=== PATIENT | male | born 1955 | race American Indian/Alaskan Native ===

== ENCOUNTER 2021-04-21 15:15 | Inpatient (IN) | payer MEDICARE ==
--- NOTE | 2021-04-21 16:06 | Emergency Department Report ---
ED General Adult HPI - General Chief complaint: Dental/Oral Stated complaint: CAN'T SWALLOW Time Seen by Provider: 04/21/21 16:02 Source: EMS Mode of arrival: Stretcher Limitations: Altered Mental Status - History of Present Illness Initial comments: 66-year-old -[place] male brought to the emergency room by EMS. Patient was dropped off in the room, unable to obtain history. Patient still unable to provide history. Apparently patient [facility]. MD Complaint: Altered mental status -: unknown - Related Data Allergies Allergy/AdvReac Type Severity Reaction Status Date / Time No Known Allergies Allergy Unverified 04/21/21 16:27 ED Review of Systems ROS: Stated complaint: CAN'T SWALLOW Other details as noted in HPI Comment: Unobtainable due to pts medical conditions (Patient unable to provide history) ED Physical Exam - General Limitations: Altered Mental Status General appearance: alert, in no apparent distress - Head Head exam: Present: atraumatic, normocephalic - Eye Eye exam: Present: normal appearance, PERRL, EOMI - ENT ENT exam: Present: mucous membranes dry, other (Dry mucous membrane). Absent: normal orophraynx - Neck Neck exam: Present: normal inspection - Respiratory Respiratory exam: Present: normal lung sounds bilaterally. Absent: respiratory distress, wheezes, rales - Cardiovascular Cardiovascular Exam: Present: regular rate, normal rhythm, normal heart sounds - GI/Abdominal GI/Abdominal exam: Present: soft. Absent: distended, tenderness, guarding, rebound - Extremities Exam Extremities exam: Present: other (Contracted lower extremity) - Neurological Exam Neurological exam: Present: alert, altered ED Course Vital Signs 04/21/21 15:16 Temperature 98.4 F Pulse Rate 104 H Respiratory 16 Rate Blood Pressure 105/74 [Right] O2 Sat by Pulse 97 Oximetry - Reevaluation(s) Reevaluation #1: 04/21/21 16:05 Patient has been seen and evaluated. Vital signs has been reviewed. Patient in the emergency room altered. Patient unable to provide history. Basting Marker unable to provide adequate history. Reevaluation #2: 04/21/21 17:56 I have reviewed the results of the chest x-ray, is concerning for bilateral pneumonia; I will initiate a septic work-up at this time Reevaluation #3: 04/21/21 19:01 I have discussed the case with the hospitalist who will admit the patient to the hospital ED Medical Decision Making - Lab Data Result diagrams: 04/21/21 16:08 04/21/21 16:08 - Radiology Data Radiology results: report reviewed Bilateral pneumonia - Medical Decision Making DDx: Altered mental status, electrolyte abnormality, pneumonia, UTI, anemia Critical care attestation.: If time is entered above; I have spent that time in minutes in the direct care of this critically ill patient, excluding procedure time. ED Disposition Clinical Impression: Bilateral pneumonia Qualifiers: Pneumonia type: due to unspecified organism Lung location: lower lobe of lung Qualified Code(s): J18.9 - Pneumonia, unspecified organism Altered mental status Qualifiers: Altered mental status type: unspecified Qualified Code(s): R41.82 - Altered mental status, unspecified Disposition: 09 ADMITTED INPATIENT Is pt being admited?: Yes Does the pt Need Aspirin: No Condition: Stable Instructions: Bacterial Pneumonia (ED) Referrals: PRIMARY CARE, [Primary Care Provider] - 3-5 Days
[2021-04-21 17:05] LABS: Basophils % (Auto) 0.1 % (0.0-1.8); Hematocrit 41.7 % (35.5-45.6); Hemoglobin 13.3 gm/dl (11.8-15.2); Lymphocytes # (Auto) 0.9 K/mm3 (1.2-5.4); Lymphocytes % (Auto) 8.5 % (13.4-35.0); Mean Corpuscular HGB Conc 32 % (32-34); Mean Corpuscular Volume 96 fl (84-94); Monocytes # (Auto) 1.7 K/mm3 (0.0-0.8); Monocytes % (Auto) 15.8 % (0.0-7.3); Platelet Count 195 K/mm3 (140-440); Red Blood Count 4.36 M/mm3 (3.65-5.03); Red Cell Distribution Width 15.2 % (13.2-15.2)
[2021-04-21 17:17] LABS: Alanine Aminotransferase 38 units/L (7-56); Blood Urea Nitrogen 13 mg/dL (9-20); Calcium 8.3 mg/dL (8.4-10.2); Hemolysis Index 47
[2021-04-21 17:18] LABS: BUN/Creatinine Ratio 22
--- NOTE | 2021-04-21 17:42 | XRay Report ---
CHEST 1 VIEW 04/21/2021 5:21 PM INDICATION / CLINICAL INFORMATION: Altered mental status. COMPARISON: None. FINDINGS: SUPPORT DEVICES: None. HEART / MEDIASTINUM: No significant abnormality. LUNGS / PLEURA: Bibasilar pneumonia left greater than right. No pneumothorax. ADDITIONAL FINDINGS: No significant additional findings. IMPRESSION: Bibasilar pneumonia. Signer Name: Silas Arambula MD Signed: 04/21/2021 5:38 PM Workstation Name: [id number]
[2021-04-21] MEDS ORDERED: AZITHROMYCIN/NS 500 MG/250 ML 500 MG/250 ML BAG IV ONE (17:54)
[2021-04-21 20:35] LABS: Bilirubin,Urine NEG (Negative); Blood,Urine MOD (Negative); Color,Urine Amber (Yellow); Mucus,Urine FEW /HPF; RBC,Urine < 1.0 /HPF (0.0-6.0); WBC,Urine < 1.0 /HPF (0.0-6.0)
--- NOTE | 2021-04-21 21:34 | History and Physical Report ---
History of Present Illness Date of examination: 04/21/21 Date of admission: 04/21/21 19:00 Chief complaint: Chest pain since yesterday. History of present illness: 66-year-old -[place] male brought in by family for altered sensorium. Patient was apparently admitted to personal shelter recently. Patient is a very poor historian. Could not get much history. Low-grade fever present. Past History Past Medical History: No medical history Past Surgical History: No surgical history Social history: Lives alone, full code Family history: hypertension Medications and Allergies Allergies Allergy/AdvReac Type Severity Reaction Status Date / Time No Known Allergies Allergy Unverified 04/21/21 16:27 Review of Systems All systems: negative Exam - Constitutional Vitals: Temp Pulse Resp BP Pulse Ox 98.4 F 104 H 16 105/74 97 04/21/21 15:16 04/21/21 15:16 04/21/21 15:16 04/21/21 15:16 04/21/21 15:16 General appearance: Present: no acute distress, well-nourished - EENT Eyes: Present: PERRL ENT: hearing intact, clear oral mucosa - Neck Neck: Present: supple, normal ROM - Respiratory Respiratory effort: normal Respiratory: bilateral: CTA - Cardiovascular Heart rate: 78 Rhythm: regular Heart Sounds: Present: S1 & S2. Absent: rub, click - Extremities Extremities: pulses symmetrical, No edema Peripheral Pulses: within normal limits - Abdominal General gastrointestinal: Present: soft, non-tender, non-distended, normal bowel sounds Male genitourinary: Present: normal - Integumentary Integumentary: Present: clear, warm, dry - Musculoskeletal Musculoskeletal: gait normal, strength equal bilaterally - Psychiatric Psychiatric: intact judgment & insight, other (Altered sensorium) - Neurologic Neurologic: CNII-XII intact, moves all extremities - Allied Health Allied health notes reviewed: nursing, case management HEART Score - HEART Score History: Moderately suspicious Age: 45-65 Risk factors: 1-2 risk factors - Critical Actions Critical Actions: 0-3 pts:0.9-1.7%risk of adverse cardiac event.Candidate for discharge Results - Labs CBC & Chem 7: 04/21/21 16:08 04/21/21 16:08 Labs: Laboratory Last Values WBC 10.5 K/mm3 (4.5-11.0) 04/21/21 16:08 RBC 4.36 M/mm3 (3.65-5.03) 04/21/21 16:08 Hgb 13.3 gm/dl (11.8-15.2) 04/21/21 16:08 Hct 41.7 % (35.5-45.6) 04/21/21 16:08 MCV 96 fl (84-94) H 04/21/21 16:08 MCH 31 pg (28-32) 04/21/21 16:08 MCHC 32 % (32-34) 04/21/21 16:08 RDW 15.2 % (13.2-15.2) 04/21/21 16:08 Plt Count 195 K/mm3 (140-440) 04/21/21 16:08 Lymph % (Auto) 8.5 % (13.4-35.0) L 04/21/21 16:08 Bartholomew % (Auto) 15.8 % (0.0-7.3) H 04/21/21 16:08 Eos % (Auto) 0.0 % (0.0-4.3) 04/21/21 16:08 Baso % (Auto) 0.1 % (0.0-1.8) 04/21/21 16:08 Lymph # (Auto) 0.9 K/mm3 (1.2-5.4) L 04/21/21 16:08 Bartholomew # (Auto) 1.7 K/mm3 (0.0-0.8) H 04/21/21 16:08 Eos # (Auto) 0.0 K/mm3 (0.0-0.4) 04/21/21 16:08 Baso # (Auto) 0.0 K/mm3 (0.0-0.1) 04/21/21 16:08 Seg Neutrophils % 75.6 % (40.0-70.0) H 04/21/21 16:08 Seg Neutrophils # 8.0 K/mm3 (1.8-7.7) H 04/21/21 16:08 APTT 32.0 Sec. (24.2-36.6) 04/21/21 18:02 Sodium 141 mmol/L (137-145) 04/21/21 16:08 Potassium 3.7 mmol/L (3.6-5.0) 04/21/21 16:08 Chloride 101.8 mmol/L (98-107) 04/21/21 16:08 Carbon Dioxide 27 mmol/L (22-30) 04/21/21 16:08 Anion Gap 16 mmol/L 04/21/21 16:08 BUN 13 mg/dL (9-20) 04/21/21 16:08 Creatinine 0.6 mg/dL (0.8-1.3) L 04/21/21 16:08 Estimated GFR > 60 ml/min 04/21/21 16:08 BUN/Creatinine Ratio 22 % 04/21/21 16:08 Glucose 107 mg/dL (75-100) H 04/21/21 16:08 Lactic Acid 1.20 mmol/L (0.7-2.0) 04/21/21 20:26 Calcium 8.3 mg/dL (8.4-10.2) L 04/21/21 16:08 Magnesium 2.20 mg/dL (1.7-2.3) 04/21/21 16:08 Total Bilirubin 0.40 mg/dL (0.1-1.2) 04/21/21 16:08 AST 136 units/L (5-40) H 04/21/21 16:08 ALT 38 units/L (7-56) 04/21/21 16:08 Alkaline Phosphatase 66 units/L (35-129) 04/21/21 16:08 Total Protein 6.2 g/dL (6.3-8.2) L 04/21/21 16:08 Albumin 3.0 g/dL (3.9-5) L 04/21/21 16:08 Albumin/Globulin Ratio 0.9 % 04/21/21 16:08 Lipase 7 units/L (13-60) L 04/21/21 16:08 Urine Color Leticia (Yellow) 04/21/21 Unknown Urine Turbidity Clear (Clear) 04/21/21 Unknown Urine pH 5.0 (5.0-7.0) 04/21/21 Unknown Ur Specific [place] 1.027 (1.003-1.030) 04/21/21 Unknown Urine Protein 100 mg/dl mg/dL (Negative) 04/21/21 Unknown Urine Glucose (UA) Neg mg/dL (Negative) 04/21/21 Unknown Urine Ketones 20 mg/dL (Negative) 04/21/21 Unknown Urine Blood Mod (Negative) 04/21/21 Unknown Urine Nitrite Neg (Negative) 04/21/21 Unknown Urine Bilirubin Neg (Negative) 04/21/21 Unknown Urine Urobilinogen 4.0 mg/dL (<2.0) 04/21/21 Unknown Ur Leukocyte Esterase Neg (Negative) 04/21/21 Unknown Urine WBC (Auto) < 1.0 /HPF (0.0-6.0) 04/21/21 Unknown Urine RBC (Auto) < 1.0 /HPF (0.0-6.0) 04/21/21 Unknown Urine Mucus Few /HPF 04/21/21 Unknown Short CBC 04/21/21 Range/Units 16:08 WBC 10.5 (4.5-11.0) K/mm3 Hgb 13.3 (11.8-15.2) gm/dl Hct 41.7 (35.5-45.6) % Plt Count 195 (140-440) K/mm3 BMP 04/21/21 16:08 Sodium 141 Potassium 3.7 Chloride 101.8 Carbon Dioxide 27 BUN 13 Creatinine 0.6 L Glucose 107 H Calcium 8.3 L Liver Function 04/21/21 Range/Units 16:08 Total Bilirubin 0.40 (0.1-1.2) mg/dL AST 136 H (5-40) units/L ALT 38 (7-56) units/L Alkaline Phosphatase 66 (35-129) units/L Albumin 3.0 L (3.9-5) g/dL Urine 04/21/21 Range/Units Unknown Urine Color Leticia (Yellow) Urine pH 5.0 (5.0-7.0) Ur Specific [place] 1.027 (1.003-1.030) Urine Protein 100 mg/dl (Negative) mg/dL Urine Glucose (UA) Neg (Negative) mg/dL - Imaging and Cardiology EKG: report reviewed Chest x-ray: report reviewed Imaging and Cardiology: Chest x-ray Bilateral bibasilar pneumonia Assessment and Plan Advance Directives: Yes (Full code) VTE prophylaxis?: Chemical Plan of care discussed with patient/family: Yes - Patient Problems (1) Acute encephalopathy Current Visit: Yes Status: Acute Plan to address problem: Etiology unclear IV fluids for now (2) Bilateral pneumonia Current Visit: Yes Status: Acute Qualifiers: Pneumonia type: due to unspecified organism Lung location: lower lobe of lung Qualified Code(s): J18.9 - Pneumonia, unspecified organism Plan to address problem: Treat as community-acquired pneumonia for now IV Zithromax and IV Rocephin (3) Person under investigation for COVID-19 Current Visit: Yes Status: Acute Plan to address problem: Coronavirus PCR in a.m. IV Decadron 8 mg daily (4) DVT prophylaxis Current Visit: Yes Status: Acute Plan to address problem: On Lovenox and GI prophylaxis
[2021-04-21] MEDS ORDERED: ACETAMINOPHEN 325 MG TAB PO PRN (21:54)
[2021-04-21] MEDS ORDERED: SODIUM CHLORIDE 0.9% 500 ML 500 ML IV ONE (22:30)
[2021-04-21] MEDS ORDERED: ONDANSETRON 4 MG/2 ML INJ IV PRN (22:31)
[2021-04-21] MEDS ORDERED: METOCLOPRAMIDE 10 MG/2 ML INJ IV PRN (22:31)
[2021-04-21] MEDS ORDERED: SODIUM CHLORIDE 0.9% 1000 ML 1,000 ML IV SCH (22:45)
[2021-04-21] MEDS: dexAMETHasone 4 MG/ML VIAL IV SCH (23:18)
[2021-04-22 02:35] LABS: C-Reactive Protein 9.2 mg/dL (0.00-1.30)
[2021-04-22 07:11] LABS: Hematocrit 40.2 % (35.5-45.6); Hemoglobin 12.9 gm/dl (11.8-15.2); Mean Corpuscular HGB Conc 32 % (32-34); Mean Corpuscular Volume 95 fl (84-94); Platelet Count 173 K/mm3 (140-440); Red Blood Count 4.23 M/mm3 (3.65-5.03); Red Cell Distribution Width 15.2 % (13.2-15.2)
[2021-04-22 07:37] LABS: Alanine Aminotransferase 34 units/L (7-56); Blood Urea Nitrogen 13 mg/dL (9-20); Hemolysis Index 3
[2021-04-22 07:51] LABS: BUN/Creatinine Ratio 33
[2021-04-22] MEDS ORDERED: CALCIUM GLUCONATE 2,000 MG in SODIUM CHLORIDE 0.9% 100 ML IV ONE (09:00)
[2021-04-22] MEDS: ENOXAPARIN 40 MG/0.4 ML INJ SUB-Q SCH (09:31)
[2021-04-22] MEDS: dexAMETHasone 4 MG/ML VIAL IV SCH (09:31)
[2021-04-22] MEDS: FAMOTIDINE 20 MG TAB PO SCH ×2 (09:32→22:35)
[2021-04-22] MEDS ORDERED: cefTRIAXone/NS 2 GM/100 ML 2 GM/100 ML BAG IV SCH (10:00)
[2021-04-22] MEDS ORDERED: AZITHROMYCIN 250 MG TAB PO SCH (10:00)
[2021-04-22] MEDS ORDERED: AZITHROMYCIN/NS 500 MG/250 ML 500 MG/250 ML BAG IV SCH (10:00)
[2021-04-22 11:04] LABS: Total Cells Counted 100
[2021-04-22 11:05] LABS: Band Neutrophils # (Manual) 0.4 K/mm3; Platelet Estimate Consistent w Auto; RBC Morphology Normal
--- NOTE | 2021-04-22 11:06 | Electrocardiograph Report ---
[facility] Test Date: 2021-04-21 Test Time: 19:36:11 Pat Name: CHERRY LEDEZMA Department: Room: A364 1 Gender: M Sand Screener: ERIK : 1955 Requested By: KARELY ASHFORD Order Number: [id number] Reading MD: Wellington Kumari Measurements Intervals [place] Rate: 102 P: 67 OK: 137 QRS: 27 QRSD: 103 T: 81 QT: 363 QTc: 473 Interpretive Statements Sinus tachycardia Low voltage, extremity leads motion artifact No previous ECG available for comparison Electronically Signed On 04-22-2021 11:05:27 EST by Wellington Kumari
--- NOTE | 2021-04-22 13:43 | Progress Note ---
Assessment and Plan Assessment and plan: Patient is a 66-year-old male who resides in a personal ch[facility] who presented with presumed acute metabolic encephalopathy and found to have bilateral pneumonia. #Acute metabolic encephalopathy -Etiology currently unclear -Patient is afebrile, normal WBC, negative UA -Possibly secondary to bilateral pneumonia (etiology unknown) -We will continue to monitor. Consider MRI if encephalopathy does not improve. #Bilateral pneumonia #Possible community-acquired pneumonia #Possible COVID-19 pneumonia #Person under investigation for COVID-19 -Continue azithromycin 500 mg daily and Rocephin 2 g daily and IV Decadron 8 mg daily -Pending coronavirus PCR. If PCR negative, steroids can be discontinued. -Continue contact and droplet precautions #Advanced care planning -Disease education conducted, care plan discussed, diagnoses discussed, prognosis discussed, and patient acknowledges understanding with care plan -Time: +30 min Disposition Plan: Continue medical management Total Time Spent with Patient (Minutes): 45 minutes History Interval history: No acute events overnight. Hospitalist Physical - Constitutional Vitals: Temp Pulse Resp BP Pulse Ox 99.4 F 100 H 20 106/81 98 04/21/21 23:20 04/21/21 23:20 04/22/21 11:42 04/21/21 23:20 04/22/21 11:42 General appearance: Present: no acute distress, well-nourished - EENT Eyes: Present: PERRL, EOM intact ENT: hearing intact, clear oral mucosa - Neck Neck: Present: supple, normal ROM - Respiratory Respiratory effort: normal Respiratory: bilateral: diminished (On 4 L nasal cannula) - Cardiovascular Rhythm: regular Heart Sounds: Present: S1 & S2 - Extremities Extremities: no ischemia, pulses intact, pulses symmetrical, No edema, normal temperature, normal color Peripheral Pulses: within normal limits - Abdominal General gastrointestinal: soft, non-tender, non-distended, normal bowel sounds - Integumentary Integumentary: Present: clear, warm, dry - Psychiatric Psychiatric: other (Limited insight; uncooperative with redirection) - Neurologic Neurologic: CNII-XII intact, moves all extremities, other - Allied Health Allied health notes reviewed: nursing HEART Score - HEART Score Age: 45-65 Risk factors: 1-2 risk factors - Critical Actions Critical Actions: 0-3 pts:0.9-1.7%risk of adverse cardiac event.Candidate for discharge Results - Labs CBC & Chem 7: 04/22/21 06:51 04/22/21 06:51 Labs: Laboratory Last Values WBC 7.0 K/mm3 (4.5-11.0) 04/22/21 06:51 RBC 4.23 M/mm3 (3.65-5.03) 04/22/21 06:51 Hgb 12.9 gm/dl (11.8-15.2) 04/22/21 06:51 Hct 40.2 % (35.5-45.6) 04/22/21 06:51 MCV 95 fl (84-94) H 04/22/21 06:51 MCH 30 pg (28-32) 04/22/21 06:51 MCHC 32 % (32-34) 04/22/21 06:51 RDW 15.2 % (13.2-15.2) 04/22/21 06:51 Plt Count 173 K/mm3 (140-440) 04/22/21 06:51 Lymph % (Auto) 8.5 % (13.4-35.0) L 04/21/21 16:08 [place] % (Auto) 15.8 % (0.0-7.3) H 04/21/21 16:08 Eos % (Auto) 0.0 % (0.0-4.3) 04/21/21 16:08 Baso % (Auto) 0.1 % (0.0-1.8) 04/21/21 16:08 Lymph # (Auto) 0.9 K/mm3 (1.2-5.4) L 04/21/21 16:08 [place] # (Auto) 1.7 K/mm3 (0.0-0.8) H 04/21/21 16:08 Eos # (Auto) 0.0 K/mm3 (0.0-0.4) 04/21/21 16:08 Baso # (Auto) 0.0 K/mm3 (0.0-0.1) 04/21/21 16:08 Add Manual Diff Complete 04/22/21 06:51 Total Counted 100 04/22/21 06:51 Seg Neutrophils % Guard Rail Installer 04/22/21 06:51 Seg Neuts % (Manual) 91.0 % (40.0-70.0) H 04/22/21 06:51 Band Neutrophils % 5.0 % 04/22/21 06:51 Lymphocytes % (Manual) 1.0 % (13.4-35.0) L 04/22/21 06:51 Monocytes % (Manual) 3.0 % (0.0-7.3) 04/22/21 06:51 Nucleated RBC % Not Reportable 04/22/21 06:51 Seg Neutrophils # 8.0 K/mm3 (1.8-7.7) H 04/21/21 16:08 Seg Neutrophils # Man 6.4 K/mm3 (1.8-7.7) 04/22/21 06:51 Band Neutrophils # 0.4 K/mm3 04/22/21 06:51 Lymphocytes # (Manual) 0.1 K/mm3 (1.2-5.4) L 04/22/21 06:51 Abs React Lymphs (Man) 0.0 K/mm3 04/22/21 06:51 Monocytes # (Manual) 0.2 K/mm3 (0.0-0.8) 04/22/21 06:51 Eosinophils # (Manual) 0.0 K/mm3 (0.0-0.4) 04/22/21 06:51 Basophils # (Manual) 0.0 K/mm3 (0.0-0.1) 04/22/21 06:51 Metamyelocytes # 0.0 K/mm3 04/22/21 06:51 Myelocytes # 0.0 K/mm3 04/22/21 06:51 Promyelocytes # 0.0 K/mm3 04/22/21 06:51 Blast Cells # 0.0 K/mm3 04/22/21 06:51 WBC Morphology Not Reportable 04/22/21 06:51 WBC Morphology TNR 04/22/21 06:51 Hypersegmented Neuts Not Reportable 04/22/21 06:51 Hyposegmented Neuts Not Reportable 04/22/21 06:51 Hypogranular Neuts Not Reportable 04/22/21 06:51 Smudge Cells Not Reportable 04/22/21 06:51 Toxic Granulation Not Reportable 04/22/21 06:51 Toxic Vacuolation Not Reportable 04/22/21 06:51 Dohle Bodies Not Reportable 04/22/21 06:51 Pelger-Huet Anomaly Not Reportable 04/22/21 06:51 Jeannette Rods Not Reportable 04/22/21 06:51 Platelet Estimate Consistent w auto 04/22/21 06:51 Clumped Platelets Not Reportable 04/22/21 06:51 Plt Clumps, EDTA Not Reportable 04/22/21 06:51 Large Platelets Not Reportable 04/22/21 06:51 Giant Platelets Not Reportable 04/22/21 06:51 Platelet Satelliting Not Reportable 04/22/21 06:51 Plt Morphology Comment Not Reportable 04/22/21 06:51 RBC Morphology Normal 04/22/21 06:51 Dimorphic RBCs Not Reportable 04/22/21 06:51 Polychromasia Not Reportable 04/22/21 06:51 Hypochromasia Not Reportable 04/22/21 06:51 Poikilocytosis Not Reportable 04/22/21 06:51 Anisocytosis Not Reportable 04/22/21 06:51 Microcytosis Not Reportable 04/22/21 06:51 Macrocytosis Not Reportable 04/22/21 06:51 Spherocytes Not Reportable 04/22/21 06:51 Pappenheimer Bodies Not Reportable 04/22/21 06:51 Sickle Cells Not Reportable 04/22/21 06:51 Target Cells Not Reportable 04/22/21 06:51 Tear Drop Cells Not Reportable 04/22/21 06:51 Ovalocytes Not Reportable 04/22/21 06:51 Helmet Cells Not Reportable 04/22/21 06:51 William-Avella Bodies Not Reportable 04/22/21 06:51 [place] Rings Not Reportable 04/22/21 06:51 [place] Cells Not Reportable 04/22/21 06:51 Bite Cells Not Reportable 04/22/21 06:51 Crenated Cell Not Reportable 04/22/21 06:51 Elliptocytes Not Reportable 04/22/21 06:51 Acanthocytes (Spur) Not Reportable 04/22/21 06:51 Rouleaux Not Reportable 04/22/21 06:51 Hemoglobin C Crystals Not Reportable 04/22/21 06:51 Schistocytes Not Reportable 04/22/21 06:51 Malaria parasites Not Reportable 04/22/21 06:51 Steve Bodies Not Reportable 04/22/21 06:51 Hem Pathologist Commnt No 04/22/21 06:51 APTT 32.0 Sec. (24.2-36.6) 04/21/21 18:02 D-Dimer 621.94 ng/mlDDU (0-234) H 04/22/21 00:20 Sodium 142 mmol/L (137-145) 04/22/21 06:51 Potassium 3.9 mmol/L (3.6-5.0) 04/22/21 06:51 Chloride 105.3 mmol/L (98-107) 04/22/21 06:51 Carbon Dioxide 24 mmol/L (22-30) 04/22/21 06:51 Anion Gap 17 mmol/L 04/22/21 06:51 BUN 13 mg/dL (9-20) 04/22/21 06:51 Creatinine 0.4 mg/dL (0.8-1.3) L 04/22/21 06:51 Estimated GFR > 60 ml/min 04/22/21 06:51 BUN/Creatinine Ratio 33 % 04/22/21 06:51 Glucose 114 mg/dL (75-100) H 04/22/21 06:51 Lactic Acid 1.20 mmol/L (0.7-2.0) 04/21/21 20:26 Calcium 8.0 mg/dL (8.4-10.2) L 04/22/21 06:51 Magnesium 2.20 mg/dL (1.7-2.3) 04/21/21 16:08 Ferritin 427.3 ng/mL (30.0-300.0) H 04/22/21 00:20 Total Bilirubin 0.40 mg/dL (0.1-1.2) 04/22/21 06:51 AST 116 units/L (5-40) H 04/22/21 06:51 ALT 34 units/L (7-56) 04/22/21 06:51 Alkaline Phosphatase 63 units/L (35-129) 04/22/21 06:51 Lactate Dehydrogenase 379 units/L (91-180) H 04/22/21 00:20 C-Reactive Protein 9.20 mg/dL (0.00-1.30) H 04/22/21 00:20 Total Protein 5.9 g/dL (6.3-8.2) L 04/22/21 06:51 Albumin 3.0 g/dL (3.9-5) L 04/22/21 06:51 Albumin/Globulin Ratio 1.0 % 04/22/21 06:51 Lipase 7 units/L (13-60) L 04/21/21 16:08 Urine Color Leticia (Yellow) 04/21/21 Unknown Urine Turbidity Clear (Clear) 04/21/21 Unknown Urine pH 5.0 (5.0-7.0) 04/21/21 Unknown Ur Specific [place] 1.027 (1.003-1.030) 04/21/21 Unknown Urine Protein 100 mg/dl mg/dL (Negative) 04/21/21 Unknown Urine Glucose (UA) Neg mg/dL (Negative) 04/21/21 Unknown Urine Ketones 20 mg/dL (Negative) 04/21/21 Unknown Urine Blood Mod (Negative) 04/21/21 Unknown Urine Nitrite Neg (Negative) 04/21/21 Unknown Urine Bilirubin Neg (Negative) 04/21/21 Unknown Urine Urobilinogen 4.0 mg/dL (<2.0) 04/21/21 Unknown Ur Leukocyte Esterase Neg (Negative) 04/21/21 Unknown Urine WBC (Auto) < 1.0 /HPF (0.0-6.0) 04/21/21 Unknown Urine RBC (Auto) < 1.0 /HPF (0.0-6.0) 04/21/21 Unknown Urine Mucus Few /HPF 04/21/21 Unknown Microbiology: Microbiology 04/21/21 Unknown Urine,Catheterized - Straight Catheter Urine Culture - Preliminary NO GROWTH AFTER 24 HOURS 04/21/21 18:02 Peripheral/Venous Blood Culture - Preliminary Culture in Progress 04/21/21 18:09 Peripheral/Venous Blood Culture - Preliminary Culture in Progress [place]/IV: Voiding Method Incontinent Active Medications - Current Medications Current Medications: Generic Name Dose Route Start Last Admin Trade Name Freq PRN Reason Stop Dose Admin Acetaminophen 650 mg 04/21/21 22:31 Acetaminophen 325 Mg Tab PO Q4H PRN Pain MILD(1-3)/Fever >100.5/RAY Azithromycin 500 mg 04/22/21 10:00 04/22/21 09:32 Azithromycin 250 Mg Tab PO 500 mg QDAY EDDIE Administration Dexamethasone 8 mg 04/21/21 23:00 04/22/21 09:31 Dexamethasone 4 Mg/Ml Vial IV 8 mg Q24HR EDDIE Administration Enoxaparin Sodium 40 mg 04/22/21 10:00 04/22/21 09:31 Enoxaparin 40 Mg/0.4 Ml Inj SUB-Q 40 mg QDAY EDDIE Administration Famotidine 20 mg 04/22/21 10:00 04/22/21 09:32 Famotidine 20 Mg Tab PO 20 mg BID EDDIE Administration Ceftriaxone Sodium 2 gm in 100 mls @ 200 mls/hr 04/22/21 10:00 04/22/21 09:28 Rocephin/Ns 2 Gm/100 Ml IV 200 mls/hr Q24HR EDDIE Administration Protocol Sodium Chloride 1,000 mls @ 100 mls/hr 04/21/21 22:45 Nacl 0.9% 1000 Ml IV DIRECT EDDIE Metoclopramide HCl 10 mg 04/21/21 22:31 Metoclopramide 10 Mg/2 Ml Inj IV Q6H PRN Nausea And Vomiting Ondansetron HCl 4 mg 04/21/21 22:31 Ondansetron 4 Mg/2 Ml Inj IV Q8H PRN Nausea And Vomiting Oxycodone/Acetaminophen 1 tab 04/21/21 22:31 Oxycodone /Acetaminophen 5-325mg Tab PO Q6H PRN Pain, Moderate (4-6) Sodium Chloride 10 ml 04/22/21 10:00 04/22/21 09:32 Sodium Chloride 0.9% 10 Ml Flush Syringe IV 10 ml BID EDDIE Administration Sodium Chloride 10 ml 04/21/21 22:31 Sodium Chloride 0.9% 10 Ml Flush Syringe IV PRN PRN LINE FLUSH
[2021-04-22] MEDS: oxyCODONE /ACETAMINOPHEN 5-325MG TAB PO PRN (22:35)
[2021-04-23 10:03] LABS: Hematocrit 39.6 % (35.5-45.6); Hemoglobin 12.8 gm/dl (11.8-15.2); Lymphocytes # (Auto) 0.5 K/mm3 (1.2-5.4); Lymphocytes % (Auto) 5.9 % (13.4-35.0); Mean Corpuscular HGB Conc 32 % (32-34); Mean Corpuscular Volume 96 fl (84-94); Monocytes # (Auto) 0.8 K/mm3 (0.0-0.8); Monocytes % (Auto) 9.3 % (0.0-7.3); Platelet Count 176 K/mm3 (140-440); Red Blood Count 4.13 M/mm3 (3.65-5.03); Red Cell Distribution Width 14.8 % (13.2-15.2)
[2021-04-23 10:15] LABS: Blood Urea Nitrogen 10 mg/dL (9-20); Calcium 8.3 mg/dL (8.4-10.2); Hemolysis Index 17
[2021-04-23] MEDS: ENOXAPARIN 40 MG/0.4 ML INJ SUB-Q SCH (10:34)
[2021-04-23] MEDS: FAMOTIDINE 20 MG TAB PO SCH ×2 (10:34→22:23)
[2021-04-23] MEDS: dexAMETHasone 4 MG/ML VIAL IV SCH (10:34)
[2021-04-23 10:36] LABS: BUN/Creatinine Ratio 20
--- NOTE | 2021-04-23 10:53 | Progress Note ---
Assessment and Plan Assessment and plan: Patient is a 66-year-old male who resides in a personal skilled nursing who presented with presumed acute metabolic encephalopathy and found to have bilateral pneumonia. #Acute metabolic encephalopathy -Etiology currently unclear. According to patient's medical guardian, he was able to perform ADLs independently prior to admission. -Patient is afebrile, normal WBC, negative UA -Possibly secondary to bilateral pneumonia (etiology unknown) -We will continue to monitor. Consider MRI if encephalopathy does not improve. #COVID-19 pneumonia -Discontinue azithromycin 500 mg daily and Rocephin 2 g daily. Continue IV Decadron 8 mg daily x10 days. -Patient does not require supplemental oxygen. Therefore no need to initiate remdesivir at this time. -Continue contact and droplet precautions #Advanced care planning -Disease education conducted, care plan discussed, diagnoses discussed, prognosis discussed, and patient acknowledges understanding with care plan -Time: +30 min Disposition Plan: Continue medical management Total Time Spent with Patient (Minutes): 45 minutes History Interval history: No acute events overnight Hospitalist Physical - Constitutional Vitals: Temp Pulse Resp BP Pulse Ox 98.0 F 96 H 15 108/72 100 04/23/21 04:55 04/23/21 08:20 04/23/21 08:20 04/23/21 04:55 04/23/21 08:20 General appearance: Present: no acute distress, cachectic - EENT Eyes: Present: PERRL, EOM intact ENT: hearing intact - Neck Neck: Present: supple, normal ROM - Respiratory Respiratory effort: normal - Cardiovascular Rhythm: regular Heart Sounds: Present: S1 & S2 - Extremities Extremities: no ischemia, pulses intact, pulses symmetrical, No edema, normal temperature, normal color Peripheral Pulses: within normal limits - Abdominal General gastrointestinal: soft, non-tender, non-distended, normal bowel sounds - Integumentary Integumentary: Present: clear, warm, dry - Psychiatric Psychiatric: other (Unable to fully assess given medical condition) - Neurologic Neurologic: CNII-XII intact, other (Alert and oriented x1) - Allied Health Allied health notes reviewed: nursing HEART Score - HEART Score Age: 45-65 Risk factors: 1-2 risk factors - Critical Actions Critical Actions: 0-3 pts:0.9-1.7%risk of adverse cardiac event.Candidate for discharge Results - Labs CBC & Chem 7: 04/23/21 09:24 04/23/21 09:24 Labs: Laboratory Last Values WBC 8.5 K/mm3 (4.5-11.0) 04/23/21 09:24 RBC 4.13 M/mm3 (3.65-5.03) 04/23/21 09:24 Hgb 12.8 gm/dl (11.8-15.2) 04/23/21 09:24 Hct 39.6 % (35.5-45.6) 04/23/21 09:24 MCV 96 fl (84-94) H 04/23/21 09:24 MCH 31 pg (28-32) 04/23/21 09:24 MCHC 32 % (32-34) 04/23/21 09:24 RDW 14.8 % (13.2-15.2) 04/23/21 09:24 Plt Count 176 K/mm3 (140-440) 04/23/21 09:24 Lymph % (Auto) 5.9 % (13.4-35.0) L 04/23/21 09:24 [place] % (Auto) 9.3 % (0.0-7.3) H 04/23/21 09:24 Eos % (Auto) 0.0 % (0.0-4.3) 04/23/21 09:24 Baso % (Auto) 0.0 % (0.0-1.8) 04/23/21 09:24 Lymph # (Auto) 0.5 K/mm3 (1.2-5.4) L 04/23/21 09:24 [place] # (Auto) 0.8 K/mm3 (0.0-0.8) 04/23/21 09:24 Eos # (Auto) 0.0 K/mm3 (0.0-0.4) 04/23/21 09:24 Baso # (Auto) 0.0 K/mm3 (0.0-0.1) 04/23/21 09:24 Add Manual Diff Complete 04/22/21 06:51 Total Counted 100 04/22/21 06:51 Seg Neutrophils % 84.8 % (40.0-70.0) H 04/23/21 09:24 Seg Neuts % (Manual) 91.0 % (40.0-70.0) H 04/22/21 06:51 Band Neutrophils % 5.0 % 04/22/21 06:51 Lymphocytes % (Manual) 1.0 % (13.4-35.0) L 04/22/21 06:51 Monocytes % (Manual) 3.0 % (0.0-7.3) 04/22/21 06:51 Nucleated RBC % Not Reportable 04/22/21 06:51 Seg Neutrophils # 7.2 K/mm3 (1.8-7.7) 04/23/21 09:24 Seg Neutrophils # Man 6.4 K/mm3 (1.8-7.7) 04/22/21 06:51 Band Neutrophils # 0.4 K/mm3 04/22/21 06:51 Lymphocytes # (Manual) 0.1 K/mm3 (1.2-5.4) L 04/22/21 06:51 Abs React Lymphs (Man) 0.0 K/mm3 04/22/21 06:51 Monocytes # (Manual) 0.2 K/mm3 (0.0-0.8) 04/22/21 06:51 Eosinophils # (Manual) 0.0 K/mm3 (0.0-0.4) 04/22/21 06:51 Basophils # (Manual) 0.0 K/mm3 (0.0-0.1) 04/22/21 06:51 Metamyelocytes # 0.0 K/mm3 04/22/21 06:51 Myelocytes # 0.0 K/mm3 04/22/21 06:51 Promyelocytes # 0.0 K/mm3 04/22/21 06:51 Blast Cells # 0.0 K/mm3 04/22/21 06:51 WBC Morphology Not Reportable 04/22/21 06:51 WBC Morphology TNR 04/22/21 06:51 Hypersegmented Neuts Not Reportable 04/22/21 06:51 Hyposegmented Neuts Not Reportable 04/22/21 06:51 Hypogranular Neuts Not Reportable 04/22/21 06:51 Smudge Cells Not Reportable 04/22/21 06:51 Toxic Granulation Not Reportable 04/22/21 06:51 Toxic Vacuolation Not Reportable 04/22/21 06:51 Dohle Bodies Not Reportable 04/22/21 06:51 Pelger-Huet Anomaly Not Reportable 04/22/21 06:51 Jeannette Rods Not Reportable 04/22/21 06:51 Platelet Estimate Consistent w auto 04/22/21 06:51 Clumped Platelets Not Reportable 04/22/21 06:51 Plt Clumps, EDTA Not Reportable 04/22/21 06:51 Large Platelets Not Reportable 04/22/21 06:51 Giant Platelets Not Reportable 04/22/21 06:51 Platelet Satelliting Not Reportable 04/22/21 06:51 Plt Morphology Comment Not Reportable 04/22/21 06:51 RBC Morphology Normal 04/22/21 06:51 Dimorphic RBCs Not Reportable 04/22/21 06:51 Polychromasia Not Reportable 04/22/21 06:51 Hypochromasia Not Reportable 04/22/21 06:51 Poikilocytosis Not Reportable 04/22/21 06:51 Anisocytosis Not Reportable 04/22/21 06:51 Microcytosis Not Reportable 04/22/21 06:51 Macrocytosis Not Reportable 04/22/21 06:51 Spherocytes Not Reportable 04/22/21 06:51 Pappenheimer Bodies Not Reportable 04/22/21 06:51 Sickle Cells Not Reportable 04/22/21 06:51 Target Cells Not Reportable 04/22/21 06:51 Tear Drop Cells Not Reportable 04/22/21 06:51 Ovalocytes Not Reportable 04/22/21 06:51 Helmet Cells Not Reportable 04/22/21 06:51 [place] Bodies Not Reportable 04/22/21 06:51 [place] Rings Not Reportable 04/22/21 06:51 [place]elo Cells Not Reportable 04/22/21 06:51 Bite Cells Not Reportable 04/22/21 06:51 Crenated Cell Not Reportable 04/22/21 06:51 Elliptocytes Not Reportable 04/22/21 06:51 Acanthocytes (Spur) Not Reportable 04/22/21 06:51 Rouleaux Not Reportable 04/22/21 06:51 Hemoglobin C Crystals Not Reportable 04/22/21 06:51 Schistocytes Not Reportable 04/22/21 06:51 Malaria parasites Not Reportable 04/22/21 06:51 Steve Bodies Not Reportable 04/22/21 06:51 Hem Pathologist Commnt No 04/22/21 06:51 APTT 32.0 Sec. (24.2-36.6) 04/21/21 18:02 D-Dimer 621.94 ng/mlDDU (0-234) H 04/22/21 00:20 Sodium 139 mmol/L (137-145) 04/23/21 09:24 Potassium 3.5 mmol/L (3.6-5.0) L 04/23/21 09:24 Chloride 102.9 mmol/L (98-107) 04/23/21 09:24 Carbon Dioxide 23 mmol/L (22-30) 04/23/21 09:24 Anion Gap 17 mmol/L 04/23/21 09:24 BUN 10 mg/dL (9-20) 04/23/21 09:24 Creatinine 0.5 mg/dL (0.8-1.3) L 04/23/21 09:24 Estimated GFR > 60 ml/min 04/23/21 09:24 BUN/Creatinine Ratio 20 % 04/23/21 09:24 Glucose 102 mg/dL (75-100) H 04/23/21 09:24 Lactic Acid 1.20 mmol/L (0.7-2.0) 04/21/21 20:26 Calcium 8.3 mg/dL (8.4-10.2) L 04/23/21 09:24 Phosphorus 2.30 mg/dL (2.5-4.5) L 04/23/21 09:24 Magnesium 1.80 mg/dL (1.7-2.3) 04/23/21 09:24 Ferritin 427.3 ng/mL (30.0-300.0) H 04/22/21 00:20 Total Bilirubin 0.40 mg/dL (0.1-1.2) 04/22/21 06:51 AST 116 units/L (5-40) H 04/22/21 06:51 ALT 34 units/L (7-56) 04/22/21 06:51 Alkaline Phosphatase 63 units/L (35-129) 04/22/21 06:51 Lactate Dehydrogenase 379 units/L (91-180) H 04/22/21 00:20 C-Reactive Protein 9.20 mg/dL (0.00-1.30) H 04/22/21 00:20 Total Protein 5.9 g/dL (6.3-8.2) L 04/22/21 06:51 Albumin 3.0 g/dL (3.9-5) L 04/22/21 06:51 Albumin/Globulin Ratio 1.0 % 04/22/21 06:51 Lipase 7 units/L (13-60) L 04/21/21 16:08 Procalcitonin 0.73 ng/mL (<0.15) 04/22/21 00:20 Urine Color [place] (Yellow) 04/21/21 Unknown Urine Turbidity Clear (Clear) 04/21/21 Unknown Urine pH 5.0 (5.0-7.0) 04/21/21 Unknown Ur Specific [place] 1.027 (1.003-1.030) 04/21/21 Unknown Urine Protein 100 mg/dl mg/dL (Negative) 04/21/21 Unknown Urine Glucose (UA) Neg mg/dL (Negative) 04/21/21 Unknown Urine Ketones 20 mg/dL (Negative) 04/21/21 Unknown Urine Blood Mod (Negative) 04/21/21 Unknown Urine Nitrite Neg (Negative) 04/21/21 Unknown Urine Bilirubin Neg (Negative) 04/21/21 Unknown Urine Urobilinogen 4.0 mg/dL (<2.0) 04/21/21 Unknown Ur Leukocyte Esterase Neg (Negative) 04/21/21 Unknown Urine WBC (Auto) < 1.0 /HPF (0.0-6.0) 04/21/21 Unknown Urine RBC (Auto) < 1.0 /HPF (0.0-6.0) 04/21/21 Unknown Urine Mucus Few /HPF 04/21/21 Unknown Coronavirus (PCR) Positive (Negative) A 04/22/21 Unknown Microbiology: Microbiology 04/21/21 18:02 Peripheral/Venous Blood Culture - Preliminary NO GROWTH AFTER 24 HOURS 04/21/21 18:09 Peripheral/Venous Blood Culture - Preliminary NO GROWTH AFTER 24 HOURS 04/21/21 Unknown Urine,Catheterized - Straight Catheter Urine Culture - Preliminary NO GROWTH AFTER 24 HOURS [place]/IV: Voiding Method Condom Catheter Active Medications - Current Medications Current Medications: Generic Name Dose Route Start Last Admin Trade Name Freq PRN Reason Stop Dose Admin Acetaminophen 650 mg 04/21/21 22:31 Acetaminophen 325 Mg Tab PO Q4H PRN Pain MILD(1-3)/Fever >100.5/RAY Dexamethasone 8 mg 04/21/21 23:00 04/23/21 10:34 Dexamethasone 4 Mg/Ml Vial IV 8 mg Q24HR EDDIE Administration Enoxaparin Sodium 40 mg 04/22/21 10:00 04/23/21 10:34 Enoxaparin 40 Mg/0.4 Ml Inj SUB-Q 40 mg QDAY EDDIE Administration Famotidine 20 mg 04/22/21 10:00 04/23/21 10:34 Famotidine 20 Mg Tab PO 20 mg BID EDDIE Administration Sodium Chloride 1,000 mls @ 100 mls/hr 04/21/21 22:45 04/23/21 06:12 Nacl 0.9% 1000 Ml IV 100 mls/hr DIRECT EDDIE Administration Metoclopramide HCl 10 mg 04/21/21 22:31 Metoclopramide 10 Mg/2 Ml Inj IV Q6H PRN Nausea And Vomiting Ondansetron HCl 4 mg 04/21/21 22:31 Ondansetron 4 Mg/2 Ml Inj IV Q8H PRN Nausea And Vomiting Oxycodone/Acetaminophen 1 tab 04/21/21 22:31 04/22/21 22:35 Oxycodone /Acetaminophen 5-325mg Tab PO 1 tab Q6H PRN Administration Pain, Moderate (4-6) Sodium Chloride 10 ml 04/22/21 10:00 04/23/21 10:34 Sodium Chloride 0.9% 10 Ml Flush Syringe IV 10 ml BID EDDIE Administration Sodium Chloride 10 ml 04/21/21 22:31 Sodium Chloride 0.9% 10 Ml Flush Syringe IV PRN PRN LINE FLUSH Nutrition/Malnutrition Assess - Dietary Evaluation Nutrition/Malnutrition Findings: Nutrition Notes Start: 04/22/21 18:07 Freq: Status: Active Protocol: Document 04/22/21 18:07 RICKY (Rec: 04/22/21 18:27 RICKY [email or web address]) Nutrition Notes Other Pertinent Diagnosis COVID-19, Bilateral pneumonia, Acute Encephalopathy. Current Diet Regular Diet (since B 04/22), D Suppl (since D 04/22). Labs/Tests 04/22: Crea 0.4, Glu 114, Ca 8 .0, AST 116, Tpro 5.9, Alb 3.0 . Pertinent Medications 04/22: Nutritionally unremarkable. Height 6 ft Weight 68.039 kg [place] Body Weight (kg) 80.90 BMI 20.3 Intake Prior to Admission Poor Weight change and time frame Pt unsure if had lost body weight recently. Subjective/Other Information RD consult for Skin risk ans malnutrition risk assessments. Pt states thas has had poor appetite and is not sure if has loss some body weight [employer]ER. Pt's %PO intake of meals is Poor (25%), according to ADL notes. To compensate for poor PO intake of meals, ONS were ordered. Percent of energy/protein needs met: Prescribed Regular Diet provides for energy/protein needs (2,289 Kcal/89 g) during LOS; additionally, Dietary Supplements will compensate for possible Poor PO intake of meals with 1,050 Kcal and 60 g of protein. Burn Absent Trauma Absent GI Symptoms None Food Allergy No Skin Integrity/Comment Clear, warm, dry. Current % PO Poor (25-49%) Minimum of two criteria No #1 Nutrition Diagnosis Inadequate protein-energy intake Etiology Ongoing conditions As Evidenced by Signs and Symptoms Poor PO intake of meals as in ADL notes, and RN request for Malnutrition assessment. Is patient on ventilator? No Is Patient Ambulatory and/or Out of Bed No REE-([facility]-confined to bed) 1815.396 Calculation Used for Recommendations [facility] Additional Notes Protein: 1-1.2 g/Kg; 68-82 g/ day. Fluids: 1 ml/Kcal, or as per MD. Nutrition Intervention Change Diet Order: Continue Regular Diet. Add Supplement/Snack (indicate name/kcal 8 fl oz Ensure Enlive;TID. /protein ) Provides kCal: 1,050 Provides Protein (gm) 60 Goal #1 Compensate, through dietary supplementation, for possible poor PO intake of meals during LOS. Follow-Up By: 04/29/21 Additional Comments Continue monitoring food tolerance, %PO intake of meals , and BM.
--- NOTE | 2021-04-23 12:11 | Cat Scan Report ---
CT HEAD WITHOUT CONTRAST INDICATION / CLINICAL INFORMATION: Acute metabolic encephalopathy. TECHNIQUE: Axial imaging performed from the skull apex through the skull base without the use of cont rast. Sagittal and coronal reformatted images. All CT scans at this location are performed using CT dose reduction for ALARA by means of automated exposure control. COMPARISON: None available. FINDINGS: CEREBRAL PARENCHYMA: No significant abnormality. No acute territorial infarct. Minimal chronic perive ntricular white matter changes are noted. HEMORRHAGE: None. EXTRA-AXIAL SPACES: Normal in size and morphology for the patient's age. VENTRICULAR SYSTEM: Normal in size and morphology for the patient's age. MIDLINE SHIFT OR HERNIATION: None. CEREBELLUM / BRAINSTEM: No significant abnormality. CALVARIUM: No significant abnormality. ORBITS: Normal as visualized. PARANASAL SINUSES / MASTOID AIR CELLS: Normal as visualized. SOFT TISSUES of HEAD: No significant abnormality. ADDITIONAL FINDINGS: None. IMPRESSION: No acute intracranial abnormality. Cranial CT scan within normal limits for age. Signer Name: Rony Barrera Jr, MD Signed: 04/23/2021 12:06 PM Workstation Name: [id number]
[2021-04-23] MEDS ORDERED: POTASSIUM PHOSPHATE 15 MMOL in SODIUM CHLORIDE 0.9% 250ML 250 ML IV ONE (12:30)
[2021-04-23] MEDS: ACETAMINOPHEN 325 MG TAB PO PRN (12:43)
[2021-04-23] MEDS ORDERED: CALCIUM CHLORIDE 1,000 MG in SODIUM CHLORIDE 0.9% 100 ML IV ONE (13:00)
--- NOTE | 2021-04-23 15:52 | Consultation ---
History of Present Illness - Reason for Consult Consult date: 04/23/21 - History of Present Illness 66-year-old man past medical history unknown presented to the hospital due to altered mental status. He was brought from his personal fpc by family. On presentation he was found to have COVID-19. Afebrile with T-max 100.1 with a white count 8.5. Covid PCR positive. Normal renal function. Slightly elevated procalcitonin. Elevated CRP. All cultures no growth so far. Imaging personally reviewed: Chest x-ray:Bibasilar pneumonia Review of systems: Deferred to reduce to the risk of transmission of COVID-19 Past History Past Medical History: No medical history Past Surgical History: No surgical history Social history: Lives alone, full code Family history: hypertension Medications and Allergies Allergies Allergy/AdvReac Type Severity Reaction Status Date / Time No Known Allergies Allergy Verified 04/23/21 12:31 Home Medications Medication Instructions Recorded Confirmed Last Taken Type Divalproex [Tanvir STEWART] 250 mg PO QHS 04/23/21 04/23/21 Unknown History Glycopyrrolate 2 mg PO BID 04/23/21 04/23/21 Unknown History Paliperidone Palmitate [Invega 156 mg IM QMONTH 04/23/21 04/23/21 Unknown History Sustenna] Active Meds: Active Medications Acetaminophen (Acetaminophen 325 Mg Tab) 650 mg PO Q4H PRN PRN Reason: Pain MILD(1-3)/Fever >100.5/RAY Last Admin: 04/23/21 12:43 Dose: 650 mg Documented by: Dexamethasone (Dexamethasone 4 Mg/Ml Vial) 8 mg IV Q24HR [facility] Last Admin: 04/23/21 10:34 Dose: 8 mg Documented by: Enoxaparin Sodium (Enoxaparin 40 Mg/0.4 Ml Inj) 40 mg SUB-Q QDAY [facility] Last Admin: 04/23/21 10:34 Dose: 40 mg Documented by: Famotidine (Famotidine 20 Mg Tab) 20 mg PO BID EDDIE Last Admin: 04/23/21 10:34 Dose: 20 mg Documented by: Sodium Chloride (Nacl 0.9% 1000 Ml) 1,000 mls @ 100 mls/hr IV DIRECT [facility] Last Admin: 04/23/21 06:12 Dose: 100 mls/hr Documented by: Potassium Phosphate 15 mmol/ (Sodium Chloride) 255 mls @ 63 mls/hr IV ONCE ONE Stop: 04/23/21 16:32 Last Admin: 04/23/21 12:16 Dose: 63 mls/hr Documented by: Potassium Chloride (Kcl 10meq/100ml) 10 meq in 100 mls @ 100 mls/hr IV Q1H EDDIE Stop: 04/23/21 16:59 Metoclopramide HCl (Metoclopramide 10 Mg/2 Ml Inj) 10 mg IV Q6H PRN PRN Reason: Nausea And Vomiting Ondansetron HCl (Ondansetron 4 Mg/2 Ml Inj) 4 mg IV Q8H PRN PRN Reason: Nausea And Vomiting Oxycodone/Acetaminophen (Oxycodone /Acetaminophen 5-325mg Tab) 1 tab PO Q6H PRN PRN Reason: Pain, Moderate (4-6) Last Admin: 04/22/21 22:35 Dose: 1 tab Documented by: Sodium Chloride (Sodium Chloride 0.9% 10 Ml Flush Syringe) 10 ml IV BID EDDIE Last Admin: 04/23/21 10:34 Dose: 10 ml Documented by: Sodium Chloride (Sodium Chloride 0.9% 10 Ml Flush Syringe) 10 ml IV PRN PRN PRN Reason: LINE FLUSH Physical Examination - Physical Exam Narrative exam: Physical exam deferred to reduce risk of transmission of COVID-19. Please refer to primary team's note. - Constitutional Vitals: Vital Signs Temp Pulse Resp BP Pulse Ox 99.9 F H 87 20 125/78 98 04/23/21 12:40 04/23/21 12:40 04/23/21 12:40 04/23/21 12:40 04/23/21 13:00 Temperature -Last 24 Hours Temperature 99.9 F Temperature 98.0 F Temperature 97.6 F Temperature 98.4 F Results - Labs CBC & Chem 7: 04/23/21 09:24 04/23/21 09:24 Labs: Abnormal lab results 04/23/21 04/23/21 Range/Units 09:24 09:24 MCV 96 H (84-94) fl Lymph % (Auto) 5.9 L (13.4-35.0) % [place] % (Auto) 9.3 H (0.0-7.3) % Lymph # (Auto) 0.5 L (1.2-5.4) K/mm3 Seg Neutrophils % 84.8 H (40.0-70.0) % Potassium 3.5 L (3.6-5.0) mmol/L Creatinine 0.5 L (0.8-1.3) mg/dL Glucose 102 H (75-100) mg/dL Calcium 8.3 L (8.4-10.2) mg/dL Phosphorus 2.30 L (2.5-4.5) mg/dL Assessment and Plan Cultures: Blood culture no growth so far Urine culture no growth so far A/P: 66-year-old man unknown past medical history sent to the hospital with COVID-19 pneumonia and acute encephalopathy. #COVID-19 pneumonia: Patient presented with 3 days of symptoms, chest x-ray with diffuse bilateral infiltrates, admission O2 sats decreased on room air. Inflammatory markers elevated #Acute hypoxemic respiratory failure: Likely secondary to COVID-19 infection. Currently on room air #Acute encephalopathy: May be secondary to acute infection with COVID-19. Recommendations: -Dexamethasone 6 mg IV/PO daily for 10 days -If requiring supplemental oxygen, okay to start Remdesivir. -Obtain q48-72h inflammatory markers - ferritin, Ddimer, CRP, LDH -Continue ceftriaxone 2 gm IV qday and azithromycin 500 mg PO qday for 5 and 3 days respectively -Anticoagulation per hospital protocol -Proning as able Thank you for the consult, we will continue to follow. MD Korey Zavala [facility] O: [phone] F: [phone]
[2021-04-23] MEDS: POTASSIUM CHLORIDE 10 MEQ 10 MEQ/100 ML BAG IV SCH ×5 (16:22→22:23)
[2021-04-24] MEDS ORDERED: cefTRIAXone/NS 1 GM/50 ML 1 GM/50 ML BAG IV SCH (07:00)
[2021-04-24] MEDS ORDERED: AZITHROMYCIN/NS 500 MG/250 ML 500 MG/250 ML BAG IV SCH (07:00)
[2021-04-24 08:54] LABS: Hematocrit 42.5 % (35.5-45.6); Hemoglobin 13.5 gm/dl (11.8-15.2); Mean Corpuscular HGB Conc 32 % (32-34); Mean Corpuscular Volume 95 fl (84-94); Platelet Count 174 K/mm3 (140-440); Red Blood Count 4.48 M/mm3 (3.65-5.03); Red Cell Distribution Width 14.7 % (13.2-15.2)
[2021-04-24 09:15] LABS: BUN/Creatinine Ratio 23; Blood Urea Nitrogen 9 mg/dL (9-20); Calcium 8.5 mg/dL (8.4-10.2); Hemolysis Index 2
[2021-04-24] MEDS: ENOXAPARIN 40 MG/0.4 ML INJ SUB-Q SCH (09:55)
[2021-04-24] MEDS: FAMOTIDINE 20 MG TAB PO SCH ×2 (09:55→22:25)
[2021-04-24] MEDS: DEXAMETHASONE 4 MG TAB PO SCH (09:55)
--- NOTE | 2021-04-24 10:22 | Progress Note ---
Assessment and Plan Assessment and plan: Patient is a 66-year-old male who resides in a personal retirement who presented with presumed acute metabolic encephalopathy and found to have bilateral pneumonia. #Acute metabolic encephalopathy -Etiology currently unclear. According to patient's medical guardian, he was able to perform ADLs independently prior to admission. -Patient is afebrile, normal WBC, negative UA -Possibly secondary to bilateral pneumonia (etiology unknown) -Neurology consulted; pending recs -TSH, free T4, and vitamin B12 within normal limits. -Continue to monitor. Consider MRI. #COVID-19 pneumonia -Discontinue azithromycin 500 mg daily and Rocephin 2 g daily. Continue IV Decadron 8 mg daily x10 days. -Patient does not require supplemental oxygen. Therefore no need to initiate remdesivir at this time. -Continue contact and droplet precautions #Advanced care planning -Disease education conducted, care plan discussed, diagnoses discussed, prognosis discussed, and patient acknowledges understanding with care plan -Time: +30 min Disposition Plan: Continue medical management Total Time Spent with Patient (Minutes): 45 minutes History Interval history: No acute events overnight. Hospitalist Physical - Constitutional Vitals: Temp Pulse Resp BP Pulse Ox 98.2 F 87 18 119/79 93 04/24/21 05:55 04/24/21 05:55 04/24/21 05:55 04/24/21 05:55 04/24/21 05:55 General appearance: Present: no acute distress, cachectic - EENT Eyes: Present: PERRL, EOM intact ENT: hearing intact, clear oral mucosa - Neck Neck: Present: supple, normal ROM - Respiratory Respiratory effort: normal Respiratory: bilateral: diminished - Cardiovascular Rhythm: regular Heart Sounds: Present: S1 & S2 - Extremities Extremities: no ischemia, pulses intact, pulses symmetrical, No edema, normal temperature, normal color Peripheral Pulses: within normal limits - Abdominal General gastrointestinal: soft, non-tender, non-distended, normal bowel sounds - Integumentary Integumentary: Present: clear, warm, dry - Psychiatric Psychiatric: other (Lethargic but arousable) - Neurologic Neurologic: CNII-XII intact, other (Alert and oriented x0) - Allied Health Allied health notes reviewed: nursing HEART Score - HEART Score Age: 45-65 Risk factors: 1-2 risk factors - Critical Actions Critical Actions: 0-3 pts:0.9-1.7%risk of adverse cardiac event.Candidate for discharge Results - Labs CBC & Chem 7: 04/24/21 07:56 04/24/21 07:56 Labs: Laboratory Last Values WBC 6.7 K/mm3 (4.5-11.0) 04/24/21 07:56 RBC 4.48 M/mm3 (3.65-5.03) 04/24/21 07:56 Hgb 13.5 gm/dl (11.8-15.2) 04/24/21 07:56 Hct 42.5 % (35.5-45.6) 04/24/21 07:56 MCV 95 fl (84-94) H 04/24/21 07:56 MCH 30 pg (28-32) 04/24/21 07:56 MCHC 32 % (32-34) 04/24/21 07:56 RDW 14.7 % (13.2-15.2) 04/24/21 07:56 Plt Count 174 K/mm3 (140-440) 04/24/21 07:56 Lymph % (Auto) 5.9 % (13.4-35.0) L 04/23/21 09:24 [place] % (Auto) Occasional Caregiver 04/24/21 07:56 Eos % (Auto) 0.0 % (0.0-4.3) 04/23/21 09:24 Baso % (Auto) 0.0 % (0.0-1.8) 04/23/21 09:24 Lymph # (Auto) 0.5 K/mm3 (1.2-5.4) L 04/23/21 09:24 [place] # (Auto) 0.8 K/mm3 (0.0-0.8) 04/23/21 09:24 Eos # (Auto) 0.0 K/mm3 (0.0-0.4) 04/23/21 09:24 Baso # (Auto) 0.0 K/mm3 (0.0-0.1) 04/23/21 09:24 Add Manual Diff Complete 04/22/21 06:51 Total Counted 100 04/22/21 06:51 Seg Neutrophils % 84.8 % (40.0-70.0) H 04/23/21 09:24 Seg Neuts % (Manual) 91.0 % (40.0-70.0) H 04/22/21 06:51 Band Neutrophils % 5.0 % 04/22/21 06:51 Lymphocytes % (Manual) 1.0 % (13.4-35.0) L 04/22/21 06:51 Monocytes % (Manual) 3.0 % (0.0-7.3) 04/22/21 06:51 Nucleated RBC % Not Reportable 04/22/21 06:51 Seg Neutrophils # 7.2 K/mm3 (1.8-7.7) 04/23/21 09:24 Seg Neutrophils # Man 6.4 K/mm3 (1.8-7.7) 04/22/21 06:51 Band Neutrophils # 0.4 K/mm3 04/22/21 06:51 Lymphocytes # (Manual) 0.1 K/mm3 (1.2-5.4) L 04/22/21 06:51 Abs React Lymphs (Man) 0.0 K/mm3 04/22/21 06:51 Monocytes # (Manual) 0.2 K/mm3 (0.0-0.8) 04/22/21 06:51 Eosinophils # (Manual) 0.0 K/mm3 (0.0-0.4) 04/22/21 06:51 Basophils # (Manual) 0.0 K/mm3 (0.0-0.1) 04/22/21 06:51 Metamyelocytes # 0.0 K/mm3 04/22/21 06:51 Myelocytes # 0.0 K/mm3 04/22/21 06:51 Promyelocytes # 0.0 K/mm3 04/22/21 06:51 Blast Cells # 0.0 K/mm3 04/22/21 06:51 WBC Morphology Not Reportable 04/22/21 06:51 WBC Morphology TNR 04/22/21 06:51 Hypersegmented Neuts Not Reportable 04/22/21 06:51 Hyposegmented Neuts Not Reportable 04/22/21 06:51 Hypogranular Neuts Not Reportable 04/22/21 06:51 Smudge Cells Not Reportable 04/22/21 06:51 Toxic Granulation Not Reportable 04/22/21 06:51 Toxic Vacuolation Not Reportable 04/22/21 06:51 Dohle Bodies Not Reportable 04/22/21 06:51 Pelger-Huet Anomaly Not Reportable 04/22/21 06:51 Jeannette Rods Not Reportable 04/22/21 06:51 Platelet Estimate Consistent w auto 04/22/21 06:51 Clumped Platelets Not Reportable 04/22/21 06:51 Plt Clumps, EDTA Not Reportable 04/22/21 06:51 Large Platelets Not Reportable 04/22/21 06:51 Giant Platelets Not Reportable 04/22/21 06:51 Platelet Satelliting Not Reportable 04/22/21 06:51 Plt Morphology Comment Not Reportable 04/22/21 06:51 RBC Morphology Normal 04/22/21 06:51 Dimorphic RBCs Not Reportable 04/22/21 06:51 Polychromasia Not Reportable 04/22/21 06:51 Hypochromasia Not Reportable 04/22/21 06:51 Poikilocytosis Not Reportable 04/22/21 06:51 Anisocytosis Not Reportable 04/22/21 06:51 Microcytosis Not Reportable 04/22/21 06:51 Macrocytosis Not Reportable 04/22/21 06:51 Spherocytes Not Reportable 04/22/21 06:51 Pappenheimer Bodies Not Reportable 04/22/21 06:51 Sickle Cells Not Reportable 04/22/21 06:51 Target Cells Not Reportable 04/22/21 06:51 Tear Drop Cells Not Reportable 04/22/21 06:51 Ovalocytes Not Reportable 04/22/21 06:51 Helmet Cells Not Reportable 04/22/21 06:51 [place] Bodies Not Reportable 04/22/21 06:51 [place] Rings Not Reportable 04/22/21 06:51 Canelo Cells Not Reportable 04/22/21 06:51 Bite Cells Not Reportable 04/22/21 06:51 Crenated Cell Not Reportable 04/22/21 06:51 Elliptocytes Not Reportable 04/22/21 06:51 Acanthocytes (Spur) Not Reportable 04/22/21 06:51 Rouleaux Not Reportable 04/22/21 06:51 Hemoglobin C Crystals Not Reportable 04/22/21 06:51 Schistocytes Not Reportable 04/22/21 06:51 Malaria parasites Not Reportable 04/22/21 06:51 Steve Bodies Not Reportable 04/22/21 06:51 Hem Pathologist Commnt No 04/22/21 06:51 APTT 32.0 Sec. (24.2-36.6) 04/21/21 18:02 D-Dimer 621.94 ng/mlDDU (0-234) H 04/22/21 00:20 Sodium 138 mmol/L (137-145) 04/24/21 07:56 Potassium 4.0 mmol/L (3.6-5.0) 04/24/21 07:56 Chloride 100.7 mmol/L (98-107) 04/24/21 07:56 Carbon Dioxide 26 mmol/L (22-30) 04/24/21 07:56 Anion Gap 15 mmol/L 04/24/21 07:56 BUN 9 mg/dL (9-20) 04/24/21 07:56 Creatinine 0.4 mg/dL (0.8-1.3) L 04/24/21 07:56 Estimated GFR > 60 ml/min 04/24/21 07:56 BUN/Creatinine Ratio 23 % 04/24/21 07:56 Glucose 94 mg/dL (75-100) 04/24/21 07:56 POC Glucose 84 mg/dL (70-105) 04/24/21 07:51 Lactic Acid 1.20 mmol/L (0.7-2.0) 04/21/21 20:26 Calcium 8.5 mg/dL (8.4-10.2) 04/24/21 07:56 Phosphorus 2.30 mg/dL (2.5-4.5) L 04/23/21 09:24 Magnesium 1.80 mg/dL (1.7-2.3) 04/23/21 09:24 Ferritin 427.3 ng/mL (30.0-300.0) H 04/22/21 00:20 Total Bilirubin 0.40 mg/dL (0.1-1.2) 04/22/21 06:51 AST 116 units/L (5-40) H 04/22/21 06:51 ALT 34 units/L (7-56) 04/22/21 06:51 Alkaline Phosphatase 63 units/L (35-129) 04/22/21 06:51 Lactate Dehydrogenase 379 units/L (91-180) H 04/22/21 00:20 C-Reactive Protein 9.20 mg/dL (0.00-1.30) H 04/22/21 00:20 Total Protein 5.9 g/dL (6.3-8.2) L 04/22/21 06:51 Albumin 3.0 g/dL (3.9-5) L 04/22/21 06:51 Albumin/Globulin Ratio 1.0 % 04/22/21 06:51 Lipase 7 units/L (13-60) L 04/21/21 16:08 Vitamin B12 1039 pg/mL (211-911) H 04/24/21 07:56 Procalcitonin 0.73 ng/mL (<0.15) 04/22/21 00:20 TSH 1.330 mlU/mL (0.270-4.200) 04/24/21 07:56 Free T4 1.03 ng/dL (0.76-1.46) 04/24/21 07:56 Urine Color Leticia (Yellow) 04/21/21 Unknown Urine Turbidity Clear (Clear) 04/21/21 Unknown Urine pH 5.0 (5.0-7.0) 04/21/21 Unknown Ur Specific [place] 1.027 (1.003-1.030) 04/21/21 Unknown Urine Protein 100 mg/dl mg/dL (Negative) 04/21/21 Unknown Urine Glucose (UA) Neg mg/dL (Negative) 04/21/21 Unknown Urine Ketones 20 mg/dL (Negative) 04/21/21 Unknown Urine Blood Mod (Negative) 04/21/21 Unknown Urine Nitrite Neg (Negative) 04/21/21 Unknown Urine Bilirubin Neg (Negative) 04/21/21 Unknown Urine Urobilinogen 4.0 mg/dL (<2.0) 04/21/21 Unknown Ur Leukocyte Esterase Neg (Negative) 04/21/21 Unknown Urine WBC (Auto) < 1.0 /HPF (0.0-6.0) 04/21/21 Unknown Urine RBC (Auto) < 1.0 /HPF (0.0-6.0) 04/21/21 Unknown Urine Mucus Few /HPF 04/21/21 Unknown Coronavirus (PCR) Positive (Negative) A 04/22/21 Unknown Microbiology: Microbiology 04/21/21 18:02 Peripheral/Venous Blood Culture - Preliminary NO GROWTH AFTER 48 HOURS 04/21/21 18:09 Peripheral/Venous Blood Culture - Preliminary NO GROWTH AFTER 48 HOURS 04/21/21 Unknown Urine,Catheterized - Straight Catheter Urine Culture - Final NO GROWTH AFTER 48 HOURS [place]/IV: Voiding Method Condom Catheter Active Medications - Current Medications Current Medications: Generic Name Dose Route Start Last Admin Trade Name Freq PRN Reason Stop Dose Admin Acetaminophen 650 mg 04/21/21 22:31 04/23/21 12:43 Acetaminophen 325 Mg Tab PO 650 mg Q4H PRN Administration Pain MILD(1-3)/Fever >100.5/RAY Dexamethasone 8 mg 04/24/21 10:00 04/24/21 09:55 Dexamethasone 4 Mg Tab PO 04/30/21 10:59 8 mg DAILY EDDIE Administration Enoxaparin Sodium 40 mg 04/22/21 10:00 04/24/21 09:55 Enoxaparin 40 Mg/0.4 Ml Inj SUB-Q 40 mg QDAY EDDIE Administration Famotidine 20 mg 04/22/21 10:00 04/24/21 09:55 Famotidine 20 Mg Tab PO 20 mg BID EDDIE Administration Guaifenesin 200 mg 04/24/21 08:28 Guaifenesin 100 Mg/5 Ml Oral Liqd PO Q4H PRN Cough Metoclopramide HCl 10 mg 04/21/21 22:31 Metoclopramide 10 Mg/2 Ml Inj IV Q6H PRN Nausea And Vomiting Ondansetron HCl 4 mg 04/21/21 22:31 Ondansetron 4 Mg/2 Ml Inj IV Q8H PRN Nausea And Vomiting Oxycodone/Acetaminophen 1 tab 04/21/21 22:31 04/22/21 22:35 Oxycodone /Acetaminophen 5-325mg Tab PO 1 tab Q6H PRN Administration Pain, Moderate (4-6) Sodium Chloride 10 ml 04/22/21 10:00 04/24/21 09:55 Sodium Chloride 0.9% 10 Ml Flush Syringe IV 10 ml BID EDDIE Administration Sodium Chloride 10 ml 04/21/21 22:31 Sodium Chloride 0.9% 10 Ml Flush Syringe IV PRN PRN LINE FLUSH Nutrition/Malnutrition Assess - Dietary Evaluation Nutrition/Malnutrition Findings: Nutrition Notes Start: 04/22/21 18:07 Freq: Status: Active Protocol: Document 04/22/21 18:07 RICKY (Rec: 04/22/21 18:27 RICKY [id number]) Nutrition Notes Other Pertinent Diagnosis COVID-19, Bilateral pneumonia, Acute Encephalopathy. Current Diet Regular Diet (since B 04/22), D Suppl (since D 04/22). Labs/Tests 04/22: Crea 0.4, Glu 114, Ca 8 .0, AST 116, Tpro 5.9, Alb 3.0 . Pertinent Medications 04/22: Nutritionally unremarkable. Height 6 ft Weight 68.039 kg [place] Body Weight (kg) 80.90 BMI 20.3 Intake Prior to Admission Poor Weight change and time frame Pt unsure if had lost body weight recently. Subjective/Other Information RD consult for Skin risk ans malnutrition risk assessments. Pt states thas has had poor appetite and is not sure if has loss some body weight [employer]. Pt's %PO intake of meals is Poor (25%), according to ADL notes. To compensate for poor PO intake of meals, ONS were ordered. Percent of energy/protein needs met: Prescribed Regular Diet provides for energy/protein needs (2,289 Kcal/89 g) during LOS; additionally, Dietary Supplements will compensate for possible Poor PO intake of meals with 1,050 Kcal and 60 g of protein. Burn Absent Trauma Absent GI Symptoms None Food Allergy No Skin Integrity/Comment Clear, warm, dry. Current % PO Poor (25-49%) Minimum of two criteria No #1 Nutrition Diagnosis Inadequate protein-energy intake Etiology Ongoing conditions As Evidenced by Signs and Symptoms Poor PO intake of meals as in ADL notes, and RN request for Malnutrition assessment. Is patient on ventilator? No Is Patient Ambulatory and/or Out of Bed No REE-([facility]-confined to bed) 9625.396 Calculation Used for Recommendations [facility] Additional Notes Protein: 1-1.2 g/Kg; 68-82 g/ day. Fluids: 1 ml/Kcal, or as per MD. Nutrition Intervention Change Diet Order: Continue Regular Diet. Add Supplement/Snack (indicate name/kcal 8 fl oz Ensure Enlive;TID. /protein ) Provides kCal: 1,050 Provides Protein (gm) 60 Goal #1 Compensate, through dietary supplementation, for possible poor PO intake of meals during LOS. Follow-Up By: 04/29/21 Additional Comments Continue monitoring food tolerance, %PO intake of meals , and BM.
[2021-04-24 10:51] LABS: Platelet Estimate Consistent w Auto; RBC Morphology Normal; Total Cells Counted 100
[2021-04-25 08:01] LABS: Blood Urea Nitrogen 9 mg/dL (9-20); Calcium 8.6 mg/dL (8.4-10.2); Hemolysis Index 28
[2021-04-25 08:11] LABS: BUN/Creatinine Ratio 30
[2021-04-25 08:14] LABS: Hematocrit 46.6 % (35.5-45.6); Hemoglobin 14.9 gm/dl (11.8-15.2); Mean Corpuscular HGB Conc 32 % (32-34); Mean Corpuscular Volume 94 fl (84-94); Platelet Count 177 K/mm3 (140-440); Red Blood Count 4.95 M/mm3 (3.65-5.03); Red Cell Distribution Width 14.7 % (13.2-15.2)
--- NOTE | 2021-04-25 08:40 | Progress Note ---
Assessment and Plan Assessment and plan: Patient is a 66-year-old male who resides in a personal senior living who presented with presumed acute metabolic encephalopathy and found to have bilateral pneumonia. #Acute metabolic encephalopathy -Etiology currently unclear. According to patient's medical guardian, he was able to perform ADLs independently prior to admission. -Patient is afebrile, normal WBC, negative UA -Possibly secondary to bilateral pneumonia (etiology unknown) -CT head noncontrast negative for acute abnormality. -Neurology consulted; pending recs -TSH, free T4, and vitamin B12 within normal limits. -Continue to monitor. Consider MRI. #COVID-19 pneumonia -Discontinue azithromycin 500 mg daily and Rocephin 2 g daily. Continue IV Decadron 8 mg daily x10 days. -Patient does not require supplemental oxygen. Therefore no need to initiate remdesivir at this time. -Continue contact and droplet precautions #Severe protein caloric malnutrition -BMI 20.3 -Nutrition consulted; pending recs #Advanced care planning -Disease education conducted, care plan discussed, diagnoses discussed, prognosis discussed, and patient acknowledges understanding with care plan -Time: +30 min Disposition Plan: Continue medical management Total Time Spent with Patient (Minutes): 30 minutes History Interval history: No acute events overnight. Hospitalist Physical - Constitutional Vitals: Temp Pulse Resp BP Pulse Ox 97.3 F L 97 H 20 118/81 98 04/25/21 05:42 04/25/21 05:42 04/25/21 06:00 04/25/21 05:42 04/25/21 08:14 General appearance: Present: no acute distress, cachectic - EENT Eyes: Present: PERRL, EOM intact ENT: hearing intact, clear oral mucosa, poor dentition - Neck Neck: Present: supple, normal ROM - Respiratory Respiratory effort: normal Respiratory: bilateral: diminished - Cardiovascular Rhythm: regular Heart Sounds: Present: S1 & S2 - Extremities Extremities: no ischemia, pulses intact, pulses symmetrical, No edema, normal temperature, normal color Peripheral Pulses: within normal limits - Abdominal General gastrointestinal: soft, non-tender, non-distended, normal bowel sounds - Integumentary Integumentary: Present: clear, warm, dry - Psychiatric Psychiatric: other (Unable to assess given clinical condition) - Neurologic Neurologic: CNII-XII intact (Alert and oriented x1), other (Unable to assess given medical condition) - Allied Health Allied health notes reviewed: nursing HEART Score - HEART Score Age: 45-65 Risk factors: 1-2 risk factors - Critical Actions Critical Actions: 0-3 pts:0.9-1.7%risk of adverse cardiac event.Candidate for discharge Results - Labs CBC & Chem 7: 04/25/21 06:24 04/25/21 06:24 Labs: Laboratory Last Values WBC 8.1 K/mm3 (4.5-11.0) 04/25/21 06:24 RBC 4.95 M/mm3 (3.65-5.03) 04/25/21 06:24 Hgb 14.9 gm/dl (11.8-15.2) 04/25/21 06:24 Hct 46.6 % (35.5-45.6) H 04/25/21 06:24 MCV 94 fl (84-94) 04/25/21 06:24 MCH 30 pg (28-32) 04/25/21 06:24 MCHC 32 % (32-34) 04/25/21 06:24 RDW 14.7 % (13.2-15.2) 04/25/21 06:24 Plt Count 177 K/mm3 (140-440) 04/25/21 06:24 Lymph % (Auto) 5.9 % (13.4-35.0) L 04/23/21 09:24 [place] % (Auto) Reverse Engineer 04/25/21 06:24 Eos % (Auto) 0.0 % (0.0-4.3) 04/23/21 09:24 Baso % (Auto) 0.0 % (0.0-1.8) 04/23/21 09:24 Lymph # (Auto) 0.5 K/mm3 (1.2-5.4) L 04/23/21 09:24 [place] # (Auto) 0.8 K/mm3 (0.0-0.8) 04/23/21 09:24 Eos # (Auto) 0.0 K/mm3 (0.0-0.4) 04/23/21 09:24 Baso # (Auto) 0.0 K/mm3 (0.0-0.1) 04/23/21 09:24 Add Manual Diff Complete 04/24/21 07:56 Total Counted 100 04/24/21 07:56 Seg Neutrophils % 84.8 % (40.0-70.0) H 04/23/21 09:24 Seg Neuts % (Manual) 80.0 % (40.0-70.0) H 04/24/21 07:56 Band Neutrophils % 5.0 % 04/22/21 06:51 Lymphocytes % (Manual) 10.0 % (13.4-35.0) L 04/24/21 07:56 Monocytes % (Manual) 10.0 % (0.0-7.3) H 04/24/21 07:56 Nucleated RBC % Not Reportable 04/24/21 07:56 Seg Neutrophils # 7.2 K/mm3 (1.8-7.7) 04/23/21 09:24 Seg Neutrophils # Man 5.4 K/mm3 (1.8-7.7) 04/24/21 07:56 Band Neutrophils # 0.0 K/mm3 04/24/21 07:56 Lymphocytes # (Manual) 0.7 K/mm3 (1.2-5.4) L 04/24/21 07:56 Abs React Lymphs (Man) 0.0 K/mm3 04/24/21 07:56 Monocytes # (Manual) 0.7 K/mm3 (0.0-0.8) 04/24/21 07:56 Eosinophils # (Manual) 0.0 K/mm3 (0.0-0.4) 04/24/21 07:56 Basophils # (Manual) 0.0 K/mm3 (0.0-0.1) 04/24/21 07:56 Metamyelocytes # 0.0 K/mm3 04/24/21 07:56 Myelocytes # 0.0 K/mm3 04/24/21 07:56 Promyelocytes # 0.0 K/mm3 04/24/21 07:56 Blast Cells # 0.0 K/mm3 04/24/21 07:56 WBC Morphology Not Reportable 04/24/21 07:56 Hypersegmented Neuts Not Reportable 04/24/21 07:56 Hyposegmented Neuts Not Reportable 04/24/21 07:56 Hypogranular Neuts Not Reportable 04/24/21 07:56 Smudge Cells Not Reportable 04/24/21 07:56 Toxic Granulation Not Reportable 04/24/21 07:56 Toxic Vacuolation Not Reportable 04/24/21 07:56 Dohle Bodies Not Reportable 04/24/21 07:56 Pelger-Huet Anomaly Not Reportable 04/24/21 07:56 Jeannette Rods Not Reportable 04/24/21 07:56 Platelet Estimate Consistent w auto 04/24/21 07:56 Clumped Platelets Not Reportable 04/24/21 07:56 Plt Clumps, EDTA Not Reportable 04/24/21 07:56 Large Platelets Not Reportable 04/24/21 07:56 Giant Platelets Not Reportable 04/24/21 07:56 Platelet Satelliting Not Reportable 04/24/21 07:56 Plt Morphology Comment Not Reportable 04/24/21 07:56 RBC Morphology Normal 04/24/21 07:56 Dimorphic RBCs Not Reportable 04/24/21 07:56 Polychromasia Not Reportable 04/24/21 07:56 Hypochromasia Not Reportable 04/24/21 07:56 Poikilocytosis Not Reportable 04/24/21 07:56 Anisocytosis Not Reportable 04/24/21 07:56 Microcytosis Not Reportable 04/24/21 07:56 Macrocytosis Not Reportable 04/24/21 07:56 Spherocytes Not Reportable 04/24/21 07:56 Pappenheimer Bodies Not Reportable 04/24/21 07:56 Sickle Cells Not Reportable 04/24/21 07:56 Target Cells Not Reportable 04/24/21 07:56 Tear Drop Cells Not Reportable 04/24/21 07:56 Ovalocytes Not Reportable 04/24/21 07:56 Helmet Cells Not Reportable 04/24/21 07:56 William-Mundelein Bodies Not Reportable 04/24/21 07:56 [place] Rings Not Reportable 04/24/21 07:56 [place] Cells Not Reportable 04/24/21 07:56 Bite Cells Not Reportable 04/24/21 07:56 Crenated Cell Not Reportable 04/24/21 07:56 Elliptocytes Not Reportable 04/24/21 07:56 Acanthocytes (Spur) Not Reportable 04/24/21 07:56 Rouleaux Not Reportable 04/24/21 07:56 Hemoglobin C Crystals Not Reportable 04/24/21 07:56 Schistocytes Not Reportable 04/24/21 07:56 Malaria parasites Not Reportable 04/24/21 07:56 Steve Bodies Not Reportable 04/24/21 07:56 Hem Pathologist Commnt No 04/24/21 07:56 APTT 32.0 Sec. (24.2-36.6) 04/21/21 18:02 D-Dimer 621.94 ng/mlDDU (0-234) H 04/22/21 00:20 Sodium 136 mmol/L (137-145) L 04/25/21 06:24 Potassium 3.7 mmol/L (3.6-5.0) 04/25/21 06:24 Chloride 98.0 mmol/L (98-107) 04/25/21 06:24 Carbon Dioxide 23 mmol/L (22-30) 04/25/21 06:24 Anion Gap 19 mmol/L 04/25/21 06:24 BUN 9 mg/dL (9-20) 04/25/21 06:24 Creatinine 0.3 mg/dL (0.8-1.3) L 04/25/21 06:24 Estimated GFR > 60 ml/min 04/25/21 06:24 BUN/Creatinine Ratio 30 % 04/25/21 06:24 Glucose 90 mg/dL (75-100) 04/25/21 06:24 POC Glucose 111 mg/dL (70-105) H 04/24/21 21:37 Lactic Acid 1.20 mmol/L (0.7-2.0) 04/21/21 20:26 Calcium 8.6 mg/dL (8.4-10.2) 04/25/21 06:24 Phosphorus 2.30 mg/dL (2.5-4.5) L 04/23/21 09:24 Magnesium 1.80 mg/dL (1.7-2.3) 04/23/21 09:24 Ferritin 427.3 ng/mL (30.0-300.0) H 04/22/21 00:20 Total Bilirubin 0.40 mg/dL (0.1-1.2) 04/22/21 06:51 AST 116 units/L (5-40) H 04/22/21 06:51 ALT 34 units/L (7-56) 04/22/21 06:51 Alkaline Phosphatase 63 units/L (35-129) 04/22/21 06:51 Lactate Dehydrogenase 379 units/L (91-180) H 04/22/21 00:20 C-Reactive Protein 9.20 mg/dL (0.00-1.30) H 04/22/21 00:20 Total Protein 5.9 g/dL (6.3-8.2) L 04/22/21 06:51 Albumin 3.0 g/dL (3.9-5) L 04/22/21 06:51 Albumin/Globulin Ratio 1.0 % 04/22/21 06:51 Lipase 7 units/L (13-60) L 04/21/21 16:08 Vitamin B12 1039 pg/mL (211-911) H 04/24/21 07:56 Procalcitonin 0.73 ng/mL (<0.15) 04/22/21 00:20 TSH 1.330 mlU/mL (0.270-4.200) 04/24/21 07:56 Free T4 1.03 ng/dL (0.76-1.46) 04/24/21 07:56 Urine Color Leticia (Yellow) 04/21/21 Unknown Urine Turbidity Clear (Clear) 04/21/21 Unknown Urine pH 5.0 (5.0-7.0) 04/21/21 Unknown Ur Specific [place] 1.027 (1.003-1.030) 04/21/21 Unknown Urine Protein 100 mg/dl mg/dL (Negative) 04/21/21 Unknown Urine Glucose (UA) Neg mg/dL (Negative) 04/21/21 Unknown Urine Ketones 20 mg/dL (Negative) 04/21/21 Unknown Urine Blood Mod (Negative) 04/21/21 Unknown Urine Nitrite Neg (Negative) 04/21/21 Unknown Urine Bilirubin Neg (Negative) 04/21/21 Unknown Urine Urobilinogen 4.0 mg/dL (<2.0) 04/21/21 Unknown Ur Leukocyte Esterase Neg (Negative) 04/21/21 Unknown Urine WBC (Auto) < 1.0 /HPF (0.0-6.0) 04/21/21 Unknown Urine RBC (Auto) < 1.0 /HPF (0.0-6.0) 04/21/21 Unknown Urine Mucus Few /HPF 04/21/21 Unknown Coronavirus (PCR) Positive (Negative) A 04/22/21 Unknown Microbiology: Microbiology 04/21/21 18:02 Peripheral/Venous Blood Culture - Preliminary NO GROWTH AFTER 72 HOURS 04/21/21 18:09 Peripheral/Venous Blood Culture - Preliminary NO GROWTH AFTER 72 HOURS [place]/IV: Voiding Method Diaper Active Medications - Current Medications Current Medications: Generic Name Dose Route Start Last Admin Trade Name Freq PRN Reason Stop Dose Admin Acetaminophen 650 mg 04/21/21 22:31 04/23/21 12:43 Acetaminophen 325 Mg Tab PO 650 mg Q4H PRN Administration Pain MILD(1-3)/Fever >100.5/RAY Dexamethasone 8 mg 04/24/21 10:00 04/24/21 09:55 Dexamethasone 4 Mg Tab PO 04/30/21 10:59 8 mg DAILY EDDIE Administration Enoxaparin Sodium 40 mg 04/22/21 10:00 04/24/21 09:55 Enoxaparin 40 Mg/0.4 Ml Inj SUB-Q 40 mg QDAY EDDIE Administration Famotidine 20 mg 04/22/21 10:00 04/24/21 22:25 Famotidine 20 Mg Tab PO 20 mg BID EDDIE Administration Guaifenesin 200 mg 04/24/21 08:28 Guaifenesin 100 Mg/5 Ml Oral Liqd PO Q4H PRN Cough Metoclopramide HCl 10 mg 04/21/21 22:31 Metoclopramide 10 Mg/2 Ml Inj IV Q6H PRN Nausea And Vomiting Ondansetron HCl 4 mg 04/21/21 22:31 Ondansetron 4 Mg/2 Ml Inj IV Q8H PRN Nausea And Vomiting Oxycodone/Acetaminophen 1 tab 04/21/21 22:31 04/22/21 22:35 Oxycodone /Acetaminophen 5-325mg Tab PO 1 tab Q6H PRN Administration Pain, Moderate (4-6) Sodium Chloride 10 ml 04/22/21 10:00 04/24/21 22:25 Sodium Chloride 0.9% 10 Ml Flush Syringe IV 10 ml BID EDDIE Administration Sodium Chloride 10 ml 04/21/21 22:31 Sodium Chloride 0.9% 10 Ml Flush Syringe IV PRN PRN LINE FLUSH Nutrition/Malnutrition Assess - Dietary Evaluation Nutrition/Malnutrition Findings: Nutrition Notes Start: 04/22/21 18:07 Freq: Status: Active Protocol: Document 04/24/21 14:25 RICKY (Rec: 04/24/21 14:42 RICKY [id number]) Nutrition Notes Need for Assessment generated from: MD Order Initial or Follow up Brief Note Current Diet Regular Diet (since B 04/22), D Suppl (since D 04/22). Height 6 ft Weight 67.8 kg [place] Body Weight (kg) 80.90 BMI 20.2 Weight change and time frame 0.239 Kg body weight loss in 2 days reported. Weight Status Appropriate Subjective/Other Information RD consult for assessment on poor oral intake. Pt's %PO intake of meals is now neglible (0-24%), according to ADL notes. To compensate for poor PO intake of meals, ONS were ordered. My suggestion is to continue offering the supplements and Regular Diet through thenext 2 days and assess again on F/U. Minimum of two criteria No Nutrition Intervention Change Diet Order: Continue Regular Diet. Add Supplement/Snack (indicate name/kcal Continue 8 fl oz Ensure Enlive /protein ) ;TID. Goal #1 Compensate, through dietary supplementation, for possible poor PO intake of meals during LOS. Follow-Up By: 04/27/21 Additional Comments Continue monitoring food tolerance, %PO intake of meals , and BM.
[2021-04-25] MEDS: ENOXAPARIN 40 MG/0.4 ML INJ SUB-Q SCH (10:23)
[2021-04-25] MEDS: guaiFENesin 100 MG/5 ML ORAL LIQD PO PRN (10:23)
[2021-04-25] MEDS: FAMOTIDINE 20 MG TAB PO SCH ×2 (10:23→22:10)
[2021-04-25] MEDS: DEXAMETHASONE 4 MG TAB PO SCH (10:23)
--- NOTE | 2021-04-25 13:46 | Progress Note ---
Assessment and Plan Cultures: Blood culture no growth so far Urine culture no growth so far A/P: 66-year-old man unknown past medical history sent to the hospital with COVID-19 pneumonia and acute encephalopathy. #COVID-19 pneumonia: Patient presented with 3 days of symptoms, chest x-ray with diffuse bilateral infiltrates, admission O2 sats decreased on room air. Inflammatory markers elevated. CRP 9.2. #Acute hypoxemic respiratory failure: Likely secondary to COVID-19 infection. Currently on room air #Acute encephalopathy: May be secondary to acute infection with COVID-19. Recommendations: -Dexamethasone 6 mg IV/PO daily for 10 days -Start Remdesivir for 5 days, now on 2 L, desaturated to 80s overnight. -Obtain q48-72h inflammatory markers - ferritin, Ddimer, CRP, LDH -Continue ceftriaxone 2 gm IV qday and azithromycin 500 mg PO qday for 5 and 3 days respectively -Anticoagulation per hospital protocol -Proning as able Camila Hamilton MD [facility] ([facility]) Office [phone] Subjective Date of service: 04/25/21 Interval history: Patient remains on 2 L, noted desaturation down to 87% last night however better today. No fever. Objective - Exam Narrative Exam: Physical exam deferred to minimize COVID-19 transmission during pandemic. ER and internal medicine physical examination notes reviewed. - Constitutional Vitals: Vital Signs Temp Pulse Resp BP Pulse Ox 99.1 F 99 H 22 102/69 88 04/25/21 12:09 04/25/21 12:09 04/25/21 12:09 04/25/21 12:09 04/25/21 12:09 Temperature -Last 24 Hours Temperature 99.1 F Temperature 97.3 F Temperature 98.1 F - Labs CBC & Chem 7: 04/25/21 06:24 04/25/21 06:24 Labs: Abnormal lab results 04/24/21 04/25/21 04/25/21 Range/Units 21:37 06:24 06:24 Hct 46.6 H (35.5-45.6) % Sodium 136 L (137-145) mmol/L Creatinine 0.3 L (0.8-1.3) mg/dL POC Glucose 111 H (70-105) mg/dL
[2021-04-25] MEDS ORDERED: REMDESIVIR 200 MG in SODIUM CHLORIDE 0.9% 250ML 250 ML IV ONE (13:47)
[2021-04-25] MEDS: SODIUM CHLORIDE 0.9% 50 ML IVPB IV SCH ×2 (15:09→22:10)
[2021-04-25 15:54] LABS: Band Neutrophils # (Manual) 0.5 K/mm3; Myelocytes # (Manual) 0.1 K/mm3; Total Cells Counted 100
[2021-04-25 15:56] LABS: Platelet Estimate Consistent w Auto; RBC Morphology Normal
[2021-04-25] MEDS ORDERED: SODIUM CHLORIDE 0.9% 50 ML IVPB IV SCH (21:00)
[2021-04-26 00:02] LABS: Alanine Aminotransferase 40 units/L (7-56); Albumin 2.6 g/dL (3.9-5); Blood Urea Nitrogen 11 mg/dL (9-20); Calcium 7.7 mg/dL (8.4-10.2); Hemolysis Index 12
[2021-04-26 00:08] LABS: BUN/Creatinine Ratio 28
[2021-04-26 07:31] LABS: Alanine Aminotransferase 44 units/L (7-56); Albumin 2.9 g/dL (3.9-5); Blood Urea Nitrogen 11 mg/dL (9-20); Hemolysis Index 10
[2021-04-26 07:37] LABS: BUN/Creatinine Ratio 22
[2021-04-26] MEDS: FAMOTIDINE 20 MG TAB PO SCH ×2 (10:26→21:36)
[2021-04-26] MEDS: DEXAMETHASONE 4 MG TAB PO SCH (10:26)
[2021-04-26] MEDS: ENOXAPARIN 40 MG/0.4 ML INJ SUB-Q SCH (10:26)
--- NOTE | 2021-04-26 11:02 | Electrocardiograph Report ---
[facility] Test Date: 2021-04-26 Test Time: 08:07:48 Pat Name: CHERRY LEDEZMA Department: Room: A364 1 Gender: M Subscription Clerk: CATA : 1955 Requested By: DEB MCCULLOUGH Order Number: [id number] Reading MD: Jamie Queen Measurements Intervals [place] Rate: 112 P: 74 MD: 128 QRS: 7 QRSD: 94 T: 83 QT: 333 QTc: 455 Interpretive Statements Sinus tachycardia Compared to ECG 04/21/2021 19:36:11 No significant changes Electronically Signed On 04-26-2021 11:02:24 EST by Jamie Queen
--- NOTE | 2021-04-26 12:00 | XRay Report ---
CHEST 1 VIEW 04/26/2021 11:27 AM INDICATION / CLINICAL INFORMATION: Concern for aspiration. COMPARISON: 04/21/2021 FINDINGS: SUPPORT DEVICES: None. HEART / MEDIASTINUM: No significant abnormality. LUNGS / PLEURA: Diffuse bilateral pulmonary opacities No pneumothorax. ADDITIONAL FINDINGS: No significant additional findings. IMPRESSION: 1. Increased opacities in bilateral lungs Signer Name: Dontrell Davis MD Signed: 04/26/2021 11:55 AM Workstation Name: [email or web address]
--- NOTE | 2021-04-26 14:36 | Progress Note ---
Assessment and Plan Assessment and plan: Patient is a 66-year-old male who resides in a personal correction who presented with presumed acute metabolic encephalopathy and found to have bilateral pneumonia. #Acute metabolic encephalopathy -Etiology currently unclear. According to patient's medical guardian, he was able to perform ADLs independently prior to admission. -Patient is afebrile, normal WBC, negative UA -Possibly secondary to bilateral pneumonia (etiology unknown) -CT head noncontrast negative for acute abnormality. -Neurology consulted; pending recs -TSH, free T4, and vitamin B12 within normal limits. -Continue to monitor. Consider MRI. #COVID-19 pneumonia #Acute hypoxic respiratory failure -Discontinue azithromycin 500 mg daily and Rocephin 2 g daily. Continue IV Deca dron 8 mg daily x10 days. -Patient now requiring 4 L nasal cannula. Consulting infectious disease for remdesivir administration; pending recs -Continue contact and droplet precautions #Aspiration risk -Making patient n.p.o. Consulting speech therapy for further evaluation. -Chest x-ray revealing worsening bilateral opacities. Continue to monitor. #Severe protein caloric malnutrition -BMI 20.3 -Nutrition consulted; pending recs #Advanced care planning -Disease education conducted, care plan discussed, diagnoses discussed, prog nosis discussed, and patient acknowledges understanding with care plan -Time: +30 min Disposition Plan: Continue medical management Total Time Spent with Patient (Minutes): 45 minutes History Interval history: No acute events overnight. Hospitalist Physical - Constitutional Vitals: Temp Pulse Resp BP Pulse Ox 97.9 F 121 H 19 113/82 90 04/26/21 06:05 04/26/21 06:05 04/26/21 06:05 04/26/21 06:05 04/26/21 06:05 General appearance: Present: no acute distress, cachectic - EENT Eyes: Present: PERRL, EOM intact ENT: hearing intact, clear oral mucosa, poor dentition - Neck Neck: Present: supple, normal ROM - Respiratory Respiratory effort: normal Respiratory: bilateral: diminished (On 4 L nasal cannula) - Cardiovascular Rhythm: regular Heart Sounds: Present: S1 & S2 - Extremities Extremities: no ischemia, pulses intact, pulses symmetrical, No edema, normal temperature, normal color Peripheral Pulses: within normal limits - Abdominal General gastrointestinal: soft, non-tender, non-distended, normal bowel sounds - Integumentary Integumentary: Present: clear, warm, dry - Psychiatric Psychiatric: other (Unable to assess given clinical condition) - Neurologic Neurologic: other (Unable to assess given clinical condition) - Allied Health Allied health notes reviewed: nursing HEART Score - HEART Score Age: 45-65 Risk factors: 1-2 risk factors - Critical Actions Critical Actions: 0-3 pts:0.9-1.7%risk of adverse cardiac event.Candidate for discharge Results - Labs CBC & Chem 7: 04/25/21 06:24 04/26/21 06:29 Labs: Laboratory Last Values WBC 8.1 K/mm3 (4.5-11.0) 04/25/21 06:24 RBC 4.95 M/mm3 (3.65-5.03) 04/25/21 06:24 Hgb 14.9 gm/dl (11.8-15.2) 04/25/21 06:24 Hct 46.6 % (35.5-45.6) H 04/25/21 06:24 MCV 94 fl (84-94) 04/25/21 06:24 MCH 30 pg (28-32) 04/25/21 06:24 MCHC 32 % (32-34) 04/25/21 06:24 RDW 14.7 % (13.2-15.2) 04/25/21 06:24 Plt Count 177 K/mm3 (140-440) 04/25/21 06:24 Lymph % (Auto) 5.9 % (13.4-35.0) L 04/23/21 09:24 [place] % (Auto) Food Cart Attendant 04/25/21 06:24 Eos % (Auto) 0.0 % (0.0-4.3) 04/23/21 09:24 Baso % (Auto) 0.0 % (0.0-1.8) 04/23/21 09:24 Lymph # (Auto) 0.5 K/mm3 (1.2-5.4) L 04/23/21 09:24 [place] # (Auto) 0.8 K/mm3 (0.0-0.8) 04/23/21 09:24 Eos # (Auto) 0.0 K/mm3 (0.0-0.4) 04/23/21 09:24 Baso # (Auto) 0.0 K/mm3 (0.0-0.1) 04/23/21 09:24 Add Manual Diff Complete 04/25/21 06:24 Total Counted 100 04/25/21 06:24 Seg Neutrophils % 84.8 % (40.0-70.0) H 04/23/21 09:24 Seg Neuts % (Manual) 83.0 % (40.0-70.0) H 04/25/21 06:24 Band Neutrophils % 6.0 % 04/25/21 06:24 Lymphocytes % (Manual) 1.0 % (13.4-35.0) L 04/25/21 06:24 Monocytes % (Manual) 9.0 % (0.0-7.3) H 04/25/21 06:24 Myelocytes % 1.0 % 04/25/21 06:24 Nucleated RBC % Not Reportable 04/25/21 06:24 Seg Neutrophils # 7.2 K/mm3 (1.8-7.7) 04/23/21 09:24 Seg Neutrophils # Man 6.7 K/mm3 (1.8-7.7) 04/25/21 06:24 Band Neutrophils # 0.5 K/mm3 04/25/21 06:24 Lymphocytes # (Manual) 0.1 K/mm3 (1.2-5.4) L 04/25/21 06:24 Abs React Lymphs (Man) 0.0 K/mm3 04/25/21 06:24 Monocytes # (Manual) 0.7 K/mm3 (0.0-0.8) 04/25/21 06:24 Eosinophils # (Manual) 0.0 K/mm3 (0.0-0.4) 04/25/21 06:24 Basophils # (Manual) 0.0 K/mm3 (0.0-0.1) 04/25/21 06:24 Metamyelocytes # 0.0 K/mm3 04/25/21 06:24 Myelocytes # 0.1 K/mm3 04/25/21 06:24 Promyelocytes # 0.0 K/mm3 04/25/21 06:24 Blast Cells # 0.0 K/mm3 04/25/21 06:24 WBC Morphology Not Reportable 04/25/21 06:24 Hypersegmented Neuts Not Reportable 04/25/21 06:24 Hyposegmented Neuts Not Reportable 04/25/21 06:24 Hypogranular Neuts Not Reportable 04/25/21 06:24 Smudge Cells Not Reportable 04/25/21 06:24 Toxic Granulation Not Reportable 04/25/21 06:24 Toxic Vacuolation Not Reportable 04/25/21 06:24 Dohle Bodies Not Reportable 04/25/21 06:24 Pelger-Huet Anomaly Not Reportable 04/25/21 06:24 Jeannette Rods Not Reportable 04/25/21 06:24 Platelet Estimate Consistent w auto 04/25/21 06:24 Clumped Platelets Not Reportable 04/25/21 06:24 Plt Clumps, EDTA Not Reportable 04/25/21 06:24 Large Platelets Not Reportable 04/25/21 06:24 Giant Platelets Not Reportable 04/25/21 06:24 Platelet Satelliting Not Reportable 04/25/21 06:24 Plt Morphology Comment Not Reportable 04/25/21 06:24 RBC Morphology Normal 04/25/21 06:24 Dimorphic RBCs Not Reportable 04/25/21 06:24 Polychromasia Not Reportable 04/25/21 06:24 Hypochromasia Not Reportable 04/25/21 06:24 Poikilocytosis Not Reportable 04/25/21 06:24 Anisocytosis Not Reportable 04/25/21 06:24 Microcytosis Not Reportable 04/25/21 06:24 Macrocytosis Not Reportable 04/25/21 06:24 Spherocytes Not Reportable 04/25/21 06:24 Pappenheimer Bodies Not Reportable 04/25/21 06:24 Sickle Cells Not Reportable 04/25/21 06:24 Target Cells Not Reportable 04/25/21 06:24 Tear Drop Cells Not Reportable 04/25/21 06:24 Ovalocytes Not Reportable 04/25/21 06:24 Helmet Cells Not Reportable 04/25/21 06:24 [place] Bodies Not Reportable 04/25/21 06:24 [place] Rings Not Reportable 04/25/21 06:24 [place] Cells Not Reportable 04/25/21 06:24 Bite Cells Not Reportable 04/25/21 06:24 Crenated Cell Not Reportable 04/25/21 06:24 Elliptocytes Not Reportable 04/25/21 06:24 Acanthocytes (Spur) Not Reportable 04/25/21 06:24 Rouleaux Not Reportable 04/25/21 06:24 Hemoglobin C Crystals Not Reportable 04/25/21 06:24 Schistocytes Not Reportable 04/25/21 06:24 Malaria parasites Not Reportable 04/25/21 06:24 Steve Bodies Not Reportable 04/25/21 06:24 Hem Pathologist Commnt No 04/25/21 06:24 APTT 32.0 Sec. (24.2-36.6) 04/21/21 18:02 D-Dimer 621.94 ng/mlDDU (0-234) H 04/22/21 00:20 Sodium 137 mmol/L (137-145) 04/26/21 06:29 Potassium 3.6 mmol/L (3.6-5.0) 04/26/21 06:29 Chloride 98.2 mmol/L (98-107) 04/26/21 06:29 Carbon Dioxide 25 mmol/L (22-30) 04/26/21 06:29 Anion Gap 17 mmol/L 04/26/21 06:29 BUN 11 mg/dL (9-20) 04/26/21 06:29 Creatinine 0.5 mg/dL (0.8-1.3) L 04/26/21 06:29 Estimated GFR > 60 ml/min 04/26/21 06:29 BUN/Creatinine Ratio 22 % 04/26/21 06:29 Glucose 112 mg/dL (75-100) H 04/26/21 06:29 POC Glucose 111 mg/dL (70-105) H 04/24/21 21:37 Lactic Acid 1.20 mmol/L (0.7-2.0) 04/21/21 20:26 Calcium 8.0 mg/dL (8.4-10.2) L 04/26/21 06:29 Phosphorus 2.30 mg/dL (2.5-4.5) L 04/23/21 09:24 Magnesium 1.80 mg/dL (1.7-2.3) 04/23/21 09:24 Ferritin 427.3 ng/mL (30.0-300.0) H 04/22/21 00:20 Total Bilirubin 0.50 mg/dL (0.1-1.2) 04/26/21 06:29 AST 114 units/L (5-40) H 04/26/21 06:29 ALT 44 units/L (7-56) 04/26/21 06:29 Alkaline Phosphatase 60 units/L (35-129) 04/26/21 06:29 Lactate Dehydrogenase 379 units/L (91-180) H 04/22/21 00:20 C-Reactive Protein 9.20 mg/dL (0.00-1.30) H 04/22/21 00:20 Total Protein 6.6 g/dL (6.3-8.2) 04/26/21 06:29 Albumin 2.9 g/dL (3.9-5) L 04/26/21 06:29 Albumin/Globulin Ratio 0.8 % 04/26/21 06:29 Lipase 7 units/L (13-60) L 04/21/21 16:08 Vitamin B12 1039 pg/mL (211-911) H 04/24/21 07:56 Procalcitonin 0.73 ng/mL (<0.15) 04/22/21 00:20 TSH 1.330 mlU/mL (0.270-4.200) 04/24/21 07:56 Free T4 1.03 ng/dL (0.76-1.46) 04/24/21 07:56 Urine Color [place] (Yellow) 04/21/21 Unknown Urine Turbidity Clear (Clear) 04/21/21 Unknown Urine pH 5.0 (5.0-7.0) 04/21/21 Unknown Ur Specific [place] 1.027 (1.003-1.030) 04/21/21 Unknown Urine Protein 100 mg/dl mg/dL (Negative) 04/21/21 Unknown Urine Glucose (UA) Neg mg/dL (Negative) 04/21/21 Unknown Urine Ketones 20 mg/dL (Negative) 04/21/21 Unknown Urine Blood Mod (Negative) 04/21/21 Unknown Urine Nitrite Neg (Negative) 04/21/21 Unknown Urine Bilirubin Neg (Negative) 04/21/21 Unknown Urine Urobilinogen 4.0 mg/dL (<2.0) 04/21/21 Unknown Ur Leukocyte Esterase Neg (Negative) 04/21/21 Unknown Urine WBC (Auto) < 1.0 /HPF (0.0-6.0) 04/21/21 Unknown Urine RBC (Auto) < 1.0 /HPF (0.0-6.0) 04/21/21 Unknown Urine Mucus Few /HPF 04/21/21 Unknown Coronavirus (PCR) Positive (Negative) A 04/22/21 Unknown Microbiology: Microbiology 04/21/21 18:02 Peripheral/Venous Blood Culture - Preliminary NO GROWTH AFTER 4 DAYS 04/21/21 18:09 Peripheral/Venous Blood Culture - Preliminary NO GROWTH AFTER 4 DAYS [place]/IV: Voiding Method Incontinent Active Medications - Current Medications Current Medications: Generic Name Dose Route Start Last Admin Trade Name Freq PRN Reason Stop Dose Admin Acetaminophen 650 mg 04/21/21 22:31 04/23/21 12:43 Acetaminophen 325 Mg Tab PO 650 mg Q4H PRN Administration Pain MILD(1-3)/Fever >100.5/RAY Dexamethasone 8 mg 04/24/21 10:00 04/26/21 10:26 Dexamethasone 4 Mg Tab PO 04/30/21 10:59 8 mg DAILY EDDIE Administration Enoxaparin Sodium 40 mg 04/22/21 10:00 04/26/21 10:26 Enoxaparin 40 Mg/0.4 Ml Inj SUB-Q 40 mg QDAY EDDIE Administration Famotidine 20 mg 04/22/21 10:00 04/26/21 10:26 Famotidine 20 Mg Tab PO 20 mg BID EDDIE Administration Guaifenesin 200 mg 04/24/21 08:28 04/25/21 10:23 Guaifenesin 100 Mg/5 Ml Oral Liqd PO 200 mg Q4H PRN Administration Cough REMDESIVIR 100 mg/ Sodium 250 mls @ 500 mls/hr 04/26/21 21:00 Chloride IV 04/29/21 21:29 Q24HR@2100 EDDIE Metoclopramide HCl 10 mg 04/21/21 22:31 Metoclopramide 10 Mg/2 Ml Inj IV Q6H PRN Nausea And Vomiting Ondansetron HCl 4 mg 04/21/21 22:31 Ondansetron 4 Mg/2 Ml Inj IV Q8H PRN Nausea And Vomiting Oxycodone/Acetaminophen 1 tab 04/21/21 22:31 04/22/21 22:35 Oxycodone /Acetaminophen 5-325mg Tab PO 1 tab Q6H PRN Administration Pain, Moderate (4-6) Sodium Chloride 10 ml 04/22/21 10:00 04/26/21 10:26 Sodium Chloride 0.9% 10 Ml Flush Syringe IV 10 ml BID EDDIE Administration Sodium Chloride 10 ml 04/21/21 22:31 Sodium Chloride 0.9% 10 Ml Flush Syringe IV PRN PRN LINE FLUSH Sodium Chloride 50 ml 04/25/21 15:00 04/25/21 22:10 Sodium Chloride 0.9% 50 Ml Ivpb IV 04/28/21 21:01 50 ml Q24HR@2100 EDDIE Administration Nutrition/Malnutrition Assess - Dietary Evaluation Nutrition/Malnutrition Findings: Nutrition Notes Start: 04/22/21 18:07 Freq: Status: Active Protocol: Document 04/24/21 14:25 RICKY (Rec: 04/24/21 14:42 RICKY [email or web address]) Nutrition Notes Need for Assessment generated from: MD Order Initial or Follow up Brief Note Current Diet Regular Diet (since B 04/22), D Suppl (since D 04/22). Height 6 ft Weight 67.8 kg Leo Body Weight (kg) 80.90 BMI 20.2 Weight change and time frame 0.239 Kg body weight loss in 2 days reported. Weight Status Appropriate Subjective/Other Information RD consult for assessment on poor oral intake. Pt's %PO intake of meals is now neglible (0-24%), according to ADL notes. To compensate for poor PO intake of meals, ONS were ordered. My suggestion is to continue offering the supplements and Regular Diet through thenext 2 days and assess again on F/U. Minimum of two criteria No Nutrition Intervention Change Diet Order: Continue Regular Diet. Add Supplement/Snack (indicate name/kcal Continue 8 fl oz Ensure Enlive /protein ) ;TID. Goal #1 Compensate, through dietary supplementation, for possible poor PO intake of meals during LOS. Follow-Up By: 04/27/21 Additional Comments Continue monitoring food tolerance, %PO intake of meals , and BM.
[2021-04-26] MEDS: REMDESIVIR 100 MG in SODIUM CHLORIDE 0.9% 250ML 250 ML IV SCH (21:28)
[2021-04-26] MEDS: SODIUM CHLORIDE 0.9% 50 ML IVPB IV SCH (21:33)
[2021-04-27 07:55] LABS: Hematocrit 44.8 % (35.5-45.6); Hemoglobin 14.3 gm/dl (11.8-15.2); Mean Corpuscular HGB Conc 32 % (32-34); Mean Corpuscular Volume 94 fl (84-94); Platelet Count 221 K/mm3 (140-440); Red Blood Count 4.77 M/mm3 (3.65-5.03)
[2021-04-27 08:13] LABS: Alanine Aminotransferase 45 units/L (7-56); Albumin 2.6 g/dL (3.9-5); Blood Urea Nitrogen 16 mg/dL (9-20); Calcium 8.5 mg/dL (8.4-10.2); Hemolysis Index 6
[2021-04-27 08:17] LABS: BUN/Creatinine Ratio 40
[2021-04-27] MEDS ORDERED: VANCOMYCIN 1,000 MG in SODIUM CHLORIDE 0.9% 500 ML 500 ML IV ONE (08:23)
[2021-04-27] MEDS: CEFEPIME/NS 1 GM/100 ML 1 GM/100 ML BAG IV SCH ×2 (08:43→16:12)
[2021-04-27] MEDS: ENOXAPARIN 40 MG/0.4 ML INJ SUB-Q SCH ×2 (08:43→10:00)
[2021-04-27] MEDS ORDERED: LACTATED RINGERS 1,000 ML IV ONE (09:00)
[2021-04-27] MEDS ORDERED: VANCOMYCIN PHARMACY TO DOSE IV SCH (09:00)
[2021-04-27 09:26] LABS: Total Cells Counted 100
[2021-04-27 09:27] LABS: Band Neutrophils # (Manual) 0.5 K/mm3; Platelet Estimate Consistent w Auto; RBC Morphology Normal
[2021-04-27] MEDS ORDERED: VANCOMYCIN 1,250 MG in SODIUM CHLORIDE 0.9% 250ML 250 ML IV ONE (10:00)
[2021-04-27] MEDS: FAMOTIDINE 20 MG TAB PO SCH ×2 (10:00→21:33)
[2021-04-27] MEDS: DEXAMETHASONE 4 MG TAB PO SCH (10:00)
--- NOTE | 2021-04-27 12:03 | Progress Note ---
Assessment and Plan Assessment and plan: Patient is a 66-year-old male who resides in a personal snf who presented with presumed acute metabolic encephalopathy and found to have bilateral pneumonia. #Acute metabolic encephalopathy -Etiology currently unclear. According to patient's medical guardian, he was able to perform ADLs independently prior to admission. -Patient is afebrile, normal WBC, negative UA -Possibly secondary to bilateral pneumonia (etiology unknown) -CT head noncontrast negative for acute abnormality. -Neurology consulted; pending recs -TSH, free T4, and vitamin B12 within normal limits. -Continue to monitor. Consider MRI. #COVID-19 pneumonia #Acute hypoxic respiratory failure -Discontinue azithromycin 500 mg daily and Rocephin 2 g daily. Continue IV Deca dron 8 mg daily x10 days. -Patient now requiring 4 L nasal cannula. Consulting infectious disease for remdesivir administration; pending recs -Continue contact and droplet precautions #Leukocytosis -WBC 17.6; previously within normal limits -Unsure of secondary to steroid administration versus sepsis versus COVID-19 sequela -Starting cefepime and vancomycin. Administered lactated Ringer 1 L over 2 hours and patient developed mild pulmonary edema. Stopping IV fluids, elevating head of bed, and increasing oxygen requirements. Ordering TTE to evaluate for EF as patient has no history of heart failure. -Blood cultures drawn on 04/21 are NGTD x48 hours. #Aspiration risk -Making patient n.p.o. Consulting speech therapy for further evaluation. -Chest x-ray revealing worsening bilateral opacities. Continue to monitor. #Severe protein caloric malnutrition -BMI 20.3 -Nutrition consulted; pending recs #Advanced care planning -Disease education conducted, care plan discussed, diagnoses discussed, progno sis discussed, and patient acknowledges understanding with care plan -Time: +30 min Disposition Plan: Continue medical management Total Time Spent with Patient (Minutes): 45 minutes History Interval history: No acute events overnight. Hospitalist Physical - Constitutional Vitals: Temp Pulse Resp BP Pulse Ox 100.1 F H 138 H 19 108/67 94 04/27/21 11:13 04/27/21 11:13 04/27/21 11:13 04/27/21 11:13 04/27/21 11:13 General appearance: Present: no acute distress, cachectic - EENT Eyes: Present: PERRL, EOM intact ENT: hearing intact, poor dentition - Neck Neck: Present: supple, normal ROM - Respiratory Respiratory effort: normal Respiratory: bilateral: diminished (On 6 L nasal cannula) - Cardiovascular Rhythm: regular Heart Sounds: Present: S1 & S2 - Extremities Extremities: no ischemia, pulses intact, pulses symmetrical, No edema, normal temperature, normal color Peripheral Pulses: within normal limits - Abdominal General gastrointestinal: soft, non-tender, non-distended, normal bowel sounds - Integumentary Integumentary: Present: clear, warm, dry - Psychiatric Psychiatric: other (Unable to assess given medical condition) - Neurologic Neurologic: other (Unable to assess given medical condition; patient not fully verbal) - Allied Health Allied health notes reviewed: nursing HEART Score - HEART Score Age: 45-65 Risk factors: 1-2 risk factors - Critical Actions Critical Actions: 0-3 pts:0.9-1.7%risk of adverse cardiac event.Candidate for discharge Results - Labs CBC & Chem 7: 04/27/21 06:31 04/27/21 06:31 Labs: Laboratory Last Values WBC 17.6 K/mm3 (4.5-11.0) H 04/27/21 06:31 RBC 4.77 M/mm3 (3.65-5.03) 04/27/21 06:31 Hgb 14.3 gm/dl (11.8-15.2) 04/27/21 06:31 Hct 44.8 % (35.5-45.6) 04/27/21 06:31 MCV 94 fl (84-94) 04/27/21 06:31 MCH 30 pg (28-32) 04/27/21 06:31 MCHC 32 % (32-34) 04/27/21 06:31 RDW 15.0 % (13.2-15.2) 04/27/21 06:31 Plt Count 221 K/mm3 (140-440) 04/27/21 06:31 Lymph % (Auto) 5.9 % (13.4-35.0) L 04/23/21 09:24 [place] % (Auto) Gandy Dancer 04/25/21 06:24 Eos % (Auto) 0.0 % (0.0-4.3) 04/23/21 09:24 Baso % (Auto) 0.0 % (0.0-1.8) 04/23/21 09:24 Lymph # (Auto) 0.5 K/mm3 (1.2-5.4) L 04/23/21 09:24 [place] # (Auto) 0.8 K/mm3 (0.0-0.8) 04/23/21 09:24 Eos # (Auto) 0.0 K/mm3 (0.0-0.4) 04/23/21 09:24 Baso # (Auto) 0.0 K/mm3 (0.0-0.1) 04/23/21 09:24 Add Manual Diff Complete 04/27/21 06:31 Total Counted 100 04/27/21 06:31 Seg Neutrophils % Gandy Dancer 04/27/21 06:31 Seg Neuts % (Manual) 87.0 % (40.0-70.0) H 04/27/21 06:31 Band Neutrophils % 3.0 % 04/27/21 06:31 Lymphocytes % (Manual) 5.0 % (13.4-35.0) L 04/27/21 06:31 Monocytes % (Manual) 5.0 % (0.0-7.3) 04/27/21 06:31 Myelocytes % 1.0 % 04/25/21 06:24 Nucleated RBC % Not Reportable 04/27/21 06:31 Seg Neutrophils # 7.2 K/mm3 (1.8-7.7) 04/23/21 09:24 Seg Neutrophils # Man 15.3 K/mm3 (1.8-7.7) H 04/27/21 06:31 Band Neutrophils # 0.5 K/mm3 04/27/21 06:31 Lymphocytes # (Manual) 0.9 K/mm3 (1.2-5.4) L 04/27/21 06:31 Abs React Lymphs (Man) 0.0 K/mm3 04/27/21 06:31 Monocytes # (Manual) 0.9 K/mm3 (0.0-0.8) H 04/27/21 06:31 Eosinophils # (Manual) 0.0 K/mm3 (0.0-0.4) 04/27/21 06:31 Basophils # (Manual) 0.0 K/mm3 (0.0-0.1) 04/27/21 06:31 Metamyelocytes # 0.0 K/mm3 04/27/21 06:31 Myelocytes # 0.0 K/mm3 04/27/21 06:31 Promyelocytes # 0.0 K/mm3 04/27/21 06:31 Blast Cells # 0.0 K/mm3 04/27/21 06:31 WBC Morphology Not Reportable 04/27/21 06:31 Hypersegmented Neuts Not Reportable 04/27/21 06:31 Hyposegmented Neuts Not Reportable 04/27/21 06:31 Hypogranular Neuts Not Reportable 04/27/21 06:31 Smudge Cells Not Reportable 04/27/21 06:31 Toxic Granulation Not Reportable 04/27/21 06:31 Toxic Vacuolation Not Reportable 04/27/21 06:31 Dohle Bodies Not Reportable 04/27/21 06:31 Pelger-Huet Anomaly Not Reportable 04/27/21 06:31 Jeannette Rods Not Reportable 04/27/21 06:31 Platelet Estimate Consistent w auto 04/27/21 06:31 Clumped Platelets Not Reportable 04/27/21 06:31 Plt Clumps, EDTA Not Reportable 04/27/21 06:31 Large Platelets Not Reportable 04/27/21 06:31 Giant Platelets Not Reportable 04/27/21 06:31 Platelet Satelliting Not Reportable 04/27/21 06:31 Plt Morphology Comment Not Reportable 04/27/21 06:31 RBC Morphology Normal 04/27/21 06:31 Dimorphic RBCs Not Reportable 04/27/21 06:31 Polychromasia Not Reportable 04/27/21 06:31 Hypochromasia Not Reportable 04/27/21 06:31 Poikilocytosis Not Reportable 04/27/21 06:31 Anisocytosis Not Reportable 04/27/21 06:31 Microcytosis Not Reportable 04/27/21 06:31 Macrocytosis Not Reportable 04/27/21 06:31 Spherocytes Not Reportable 04/27/21 06:31 Pappenheimer Bodies Not Reportable 04/27/21 06:31 Sickle Cells Not Reportable 04/27/21 06:31 Target Cells Not Reportable 04/27/21 06:31 Tear Drop Cells Not Reportable 04/27/21 06:31 Ovalocytes Not Reportable 04/27/21 06:31 Helmet Cells Not Reportable 04/27/21 06:31 [place] Bodies Not Reportable 04/27/21 06:31 [place] Rings Not Reportable 04/27/21 06:31 Canelo Cells Not Reportable 04/27/21 06:31 Bite Cells Not Reportable 04/27/21 06:31 Crenated Cell Not Reportable 04/27/21 06:31 Elliptocytes Not Reportable 04/27/21 06:31 Acanthocytes (Spur) Not Reportable 04/27/21 06:31 Rouleaux Not Reportable 04/27/21 06:31 Hemoglobin C Crystals Not Reportable 04/27/21 06:31 Schistocytes Not Reportable 04/27/21 06:31 Malaria parasites Not Reportable 04/27/21 06:31 Steve Bodies Not Reportable 04/27/21 06:31 Hem Pathologist Commnt No 04/27/21 06:31 APTT 32.0 Sec. (24.2-36.6) 04/21/21 18:02 D-Dimer 621.94 ng/mlDDU (0-234) H 04/22/21 00:20 Sodium 138 mmol/L (137-145) 04/27/21 06:31 Potassium 3.4 mmol/L (3.6-5.0) L 04/27/21 06:31 Chloride 98.9 mmol/L (98-107) 04/27/21 06:31 Carbon Dioxide 26 mmol/L (22-30) 04/27/21 06:31 Anion Gap 17 mmol/L 04/27/21 06:31 BUN 16 mg/dL (9-20) 04/27/21 06:31 Creatinine 0.4 mg/dL (0.8-1.3) L 04/27/21 06:31 Estimated GFR > 60 ml/min 04/27/21 06:31 BUN/Creatinine Ratio 40 % 04/27/21 06:31 Glucose 106 mg/dL (75-100) H 04/27/21 06:31 POC Glucose 111 mg/dL (70-105) H 04/24/21 21:37 Lactic Acid 1.20 mmol/L (0.7-2.0) 04/21/21 20:26 Calcium 8.5 mg/dL (8.4-10.2) 04/27/21 06:31 Phosphorus 2.30 mg/dL (2.5-4.5) L 04/23/21 09:24 Magnesium 1.80 mg/dL (1.7-2.3) 04/23/21 09:24 Ferritin 427.3 ng/mL (30.0-300.0) H 04/22/21 00:20 Total Bilirubin 0.50 mg/dL (0.1-1.2) 04/27/21 06:31 AST 110 units/L (5-40) H 04/27/21 06:31 ALT 45 units/L (7-56) 04/27/21 06:31 Alkaline Phosphatase 64 units/L (35-129) 04/27/21 06:31 Lactate Dehydrogenase 379 units/L (91-180) H 04/22/21 00:20 C-Reactive Protein 9.20 mg/dL (0.00-1.30) H 04/22/21 00:20 Total Protein 6.2 g/dL (6.3-8.2) L 04/27/21 06:31 Albumin 2.6 g/dL (3.9-5) L 04/27/21 06:31 Albumin/Globulin Ratio 0.7 % 04/27/21 06:31 Lipase 7 units/L (13-60) L 04/21/21 16:08 Vitamin B12 1039 pg/mL (211-911) H 04/24/21 07:56 Procalcitonin 0.73 ng/mL (<0.15) 04/22/21 00:20 TSH 1.330 mlU/mL (0.270-4.200) 04/24/21 07:56 Free T4 1.03 ng/dL (0.76-1.46) 04/24/21 07:56 Urine Color [place]icia (Yellow) 04/21/21 Unknown Urine Turbidity Clear (Clear) 04/21/21 Unknown Urine pH 5.0 (5.0-7.0) 04/21/21 Unknown Ur Specific [place] 1.027 (1.003-1.030) 04/21/21 Unknown Urine Protein 100 mg/dl mg/dL (Negative) 04/21/21 Unknown Urine Glucose (UA) Neg mg/dL (Negative) 04/21/21 Unknown Urine Ketones 20 mg/dL (Negative) 04/21/21 Unknown Urine Blood Mod (Negative) 04/21/21 Unknown Urine Nitrite Neg (Negative) 04/21/21 Unknown Urine Bilirubin Neg (Negative) 04/21/21 Unknown Urine Urobilinogen 4.0 mg/dL (<2.0) 04/21/21 Unknown Ur Leukocyte Esterase Neg (Negative) 04/21/21 Unknown Urine WBC (Auto) < 1.0 /HPF (0.0-6.0) 04/21/21 Unknown Urine RBC (Auto) < 1.0 /HPF (0.0-6.0) 04/21/21 Unknown Urine Mucus Few /HPF 04/21/21 Unknown Coronavirus (PCR) Positive (Negative) A 04/22/21 Unknown Microbiology: Microbiology 04/21/21 18:02 Peripheral/Venous Blood Culture - Final NO GROWTH AFTER 5 DAYS 04/21/21 18:09 Peripheral/Venous Blood Culture - Final NO GROWTH AFTER 5 DAYS [place]/IV: Voiding Method Diaper Active Medications - Current Medications Current Medications: Generic Name Dose Route Start Last Admin Trade Name Freq PRN Reason Stop Dose Admin Acetaminophen 650 mg 04/21/21 22:31 04/23/21 12:43 Acetaminophen 325 Mg Tab PO 650 mg Q4H PRN Administration Pain MILD(1-3)/Fever >100.5/RAY Dexamethasone 8 mg 04/24/21 10:00 04/26/21 10:26 Dexamethasone 4 Mg Tab PO 04/30/21 10:59 8 mg DAILY EDDIE Administration Enoxaparin Sodium 40 mg 04/22/21 10:00 04/27/21 08:43 Enoxaparin 40 Mg/0.4 Ml Inj SUB-Q 40 mg QDAY EDDIE Administration Famotidine 20 mg 04/22/21 10:00 04/26/21 21:36 Famotidine 20 Mg Tab PO Not Given BID EDDIE Guaifenesin 200 mg 04/24/21 08:28 04/25/21 10:23 Guaifenesin 100 Mg/5 Ml Oral Liqd PO 200 mg Q4H PRN Administration Cough REMDESIVIR 100 mg/ Sodium 250 mls @ 500 mls/hr 04/26/21 21:00 04/26/21 21:28 Chloride IV 04/29/21 21:29 500 mls/hr Q24HR@2100 EDDIE Administration Cefepime HCl 1 gm in 100 mls @ 200 mls/hr 04/27/21 09:00 04/27/21 08:43 Cefepime/Ns 1 Gm/100 Ml IV 200 mls/hr Q8H EDDIE Administration Protocol Vancomycin HCl 1 gm in 250 mls @ 166.667 mls/hr 04/27/21 22:00 Vancomycin/Ns 1 Gm/250 Ml IV Q12H EDDIE Metoclopramide HCl 10 mg 04/21/21 22:31 Metoclopramide 10 Mg/2 Ml Inj IV Q6H PRN Nausea And Vomiting Ondansetron HCl 4 mg 04/21/21 22:31 Ondansetron 4 Mg/2 Ml Inj IV Q8H PRN Nausea And Vomiting Oxycodone/Acetaminophen 1 tab 04/21/21 22:31 04/22/21 22:35 Oxycodone /Acetaminophen 5-325mg Tab PO 1 tab Q6H PRN Administration Pain, Moderate (4-6) Sodium Chloride 10 ml 04/22/21 10:00 04/26/21 21:29 Sodium Chloride 0.9% 10 Ml Flush Syringe IV 10 ml BID EDDIE Administration Sodium Chloride 10 ml 04/21/21 22:31 Sodium Chloride 0.9% 10 Ml Flush Syringe IV PRN PRN LINE FLUSH Sodium Chloride 50 ml 04/25/21 15:00 04/26/21 21:33 Sodium Chloride 0.9% 50 Ml Ivpb IV 04/28/21 21:01 50 ml Q24HR@2100 EDDIE Administration Nutrition/Malnutrition Assess - Dietary Evaluation Nutrition/Malnutrition Findings: Nutrition Notes Start: 04/22/21 18:07 Freq: Status: Active Protocol: Document 04/24/21 14:25 RICKY (Rec: 04/24/21 14:42 RICKY [id number]) Nutrition Notes Need for Assessment generated from: MD Order Initial or Follow up Brief Note Current Diet Regular Diet (since B 04/22), D Suppl (since D 04/22). Height 6 ft Weight 67.8 kg [place] Body Weight (kg) 80.90 BMI 20.2 Weight change and time frame 0.239 Kg body weight loss in 2 days reported. Weight Status Appropriate Subjective/Other Information RD consult for assessment on poor oral intake. Pt's %PO intake of meals is now neglible (0-24%), according to ADL notes. To compensate for poor PO intake of meals, ONS were ordered. My suggestion is to continue offering the supplements and Regular Diet through thenext 2 days and assess again on F/U. Minimum of two criteria No Nutrition Intervention Change Diet Order: Continue Regular Diet. Add Supplement/Snack (indicate name/kcal Continue 8 fl oz Ensure Enlive /protein ) ;TID. Goal #1 Compensate, through dietary supplementation, for possible poor PO intake of meals during LOS. Follow-Up By: 04/27/21 Additional Comments Continue monitoring food tolerance, %PO intake of meals , and BM.
--- NOTE | 2021-04-27 12:23 | XRay Report ---
CHEST - 1 VIEW 1203 hours INDICATION: Congestion COMPARISON: Yesterday FINDINGS: Support devices: None Heart: Stable cardiomediastinal silhouette. Lungs/pleura: Scattered bilateral lung opacities appear stable since yesterday's exam. No pleural ef fusion or pneumothorax. Additional findings: None. IMPRESSION: Unchanged exam. Signer Name: Rony Barrera Jr, MD Signed: 04/27/2021 12:19 PM Workstation Name: [id number]
--- NOTE | 2021-04-27 14:05 | Consultation ---
History of Present Illness Consult date: 04/27/21 Reason for Consult: AMS Chief complaint: 66-year-old -[place] male brought in by family for altered sensorium. Patient was apparently admitted to personal fdc recently. Patient is a very poor historian. Could not get much history. Low-grade fever present. The patient has been in the hospital for last 2-3 days, head CT was done . Neurology has been consulted for AMS . Past History Past Medical History: No medical history Past Surgical History: No surgical history Social history: Lives alone, full code Family history: hypertension Medications and Allergies Allergies Allergy/AdvReac Type Severity Reaction Status Date / Time No Known Allergies Allergy Verified 04/23/21 12:31 Home Medications Medication Instructions Recorded Confirmed Last Taken Type Divalproex Dr [DepaKOTE DR] 250 mg PO QHS 04/23/21 04/23/21 Unknown History Glycopyrrolate 2 mg PO BID 04/23/21 04/23/21 Unknown History Paliperidone Palmitate [Invega 156 mg IM QMONTH 04/23/21 04/23/21 Unknown History Sustenna] Active Meds: Active Medications Acetaminophen (Acetaminophen 325 Mg Tab) 650 mg PO Q4H PRN PRN Reason: Pain MILD(1-3)/Fever >100.5/RAY Last Admin: 04/23/21 12:43 Dose: 650 mg Documented by: Dexamethasone (Dexamethasone 4 Mg Tab) 8 mg PO DAILY [facility] Stop: 04/30/21 10:59 Last Admin: 04/26/21 10:26 Dose: 8 mg Documented by: Enoxaparin Sodium (Enoxaparin 40 Mg/0.4 Ml Inj) 40 mg SUB-Q QDAY [facility] Last Admin: 04/27/21 08:43 Dose: 40 mg Documented by: Famotidine (Famotidine 20 Mg Tab) 20 mg PO BID [facility] Last Admin: 04/26/21 21:36 Dose: Not Given Documented by: Guaifenesin (Guaifenesin 100 Mg/5 Ml Oral Liqd) 200 mg PO Q4H PRN PRN Reason: Cough Last Admin: 04/25/21 10:23 Dose: 200 mg Documented by: REMDESIVIR 100 mg/ Sodium (Chloride) 250 mls @ 500 mls/hr IV Q24HR@2100 [facility] Stop: 04/29/21 21:29 Last Admin: 04/26/21 21:28 Dose: 500 mls/hr Documented by: Cefepime HCl (Cefepime/Ns 1 Gm/100 Ml) 1 gm in 100 mls @ 200 mls/hr IV Q8H [facility]; Protocol Last Admin: 04/27/21 08:43 Dose: 200 mls/hr Documented by: Vancomycin HCl (Vancomycin/Ns 1 Gm/250 Ml) 1 gm in 250 mls @ 166.667 mls/hr IV Q12H [facility] Metoclopramide HCl (Metoclopramide 10 Mg/2 Ml Inj) 10 mg IV Q6H PRN PRN Reason: Nausea And Vomiting Ondansetron HCl (Ondansetron 4 Mg/2 Ml Inj) 4 mg IV Q8H PRN PRN Reason: Nausea And Vomiting Oxycodone/Acetaminophen (Oxycodone /Acetaminophen 5-325mg Tab) 1 tab PO Q6H PRN PRN Reason: Pain, Moderate (4-6) Last Admin: 04/22/21 22:35 Dose: 1 tab Documented by: Sodium Chloride (Sodium Chloride 0.9% 10 Ml Flush Syringe) 10 ml IV BID [facility] Last Admin: 04/26/21 21:29 Dose: 10 ml Documented by: Sodium Chloride (Sodium Chloride 0.9% 10 Ml Flush Syringe) 10 ml IV PRN PRN PRN Reason: LINE FLUSH Sodium Chloride (Sodium Chloride 0.9% 50 Ml Ivpb) 50 ml IV Q24HR@2100 EDDEI Stop: 04/28/21 21:01 Last Admin: 04/26/21 21:33 Dose: 50 ml Documented by: Physical Examination - Vital Signs Vital Signs: Vital Signs Temp Pulse Resp BP Pulse Ox 98.4 F 104 H 16 105/74 97 04/21/21 15:16 04/21/21 15:16 04/21/21 15:16 04/21/21 15:16 04/21/21 15:16 - Physical Exam Narrative exam: The patient was not examined . Results - Laboratory Findings CBC and BMP: 04/27/21 06:31 04/27/21 06:31 Abnormal Lab Findings: Abnormal Labs 04/21/21 04/21/21 04/22/21 16:08 16:08 00:20 WBC Hct MCV 96 H Lymph % (Auto) 8.5 L [place] % (Auto) 15.8 H Lymph # (Auto) 0.9 L [place] # (Auto) 1.7 H Seg Neutrophils % 75.6 H Seg Neuts % (Manual) Lymphocytes % (Manual) Monocytes % (Manual) Seg Neutrophils # 8.0 H Seg Neutrophils # Man Lymphocytes # (Manual) Monocytes # (Manual) D-Dimer 621.94 H Sodium Potassium Carbon Dioxide Creatinine 0.6 L Glucose 107 H POC Glucose Calcium 8.3 L Phosphorus Ferritin AST 136 H Lactate Dehydrogenase C-Reactive Protein Total Protein 6.2 L Albumin 3.0 L Lipase 7 L Vitamin B12 Coronavirus (PCR) 04/22/21 04/22/21 04/22/21 00:20 00:20 06:51 WBC Hct MCV 95 H Lymph % (Auto) [place] % (Auto) Lymph # (Auto) [place] # (Auto) Seg Neutrophils % Seg Neuts % (Manual) 91.0 H Lymphocytes % (Manual) 1.0 L Monocytes % (Manual) Seg Neutrophils # Seg Neutrophils # Man Lymphocytes # (Manual) 0.1 L Monocytes # (Manual) D-Dimer Sodium Potassium Carbon Dioxide Creatinine Glucose POC Glucose Calcium Phosphorus Ferritin 427.3 H AST Lactate Dehydrogenase 379 H C-Reactive Protein 9.20 H Total Protein Albumin Lipase Vitamin B12 Coronavirus (PCR) 04/22/21 04/22/21 04/23/21 06:51 Unknown 09:24 WBC Hct MCV 96 H Lymph % (Auto) 5.9 L [place] % (Auto) 9.3 H Lymph # (Auto) 0.5 L [place] # (Auto) Seg Neutrophils % 84.8 H Seg Neuts % (Manual) Lymphocytes % (Manual) Monocytes % (Manual) Seg Neutrophils # Seg Neutrophils # Man Lymphocytes # (Manual) Monocytes # (Manual) D-Dimer Sodium Potassium Carbon Dioxide Creatinine 0.4 L Glucose 114 H POC Glucose Calcium 8.0 L Phosphorus Ferritin AST 116 H Lactate Dehydrogenase C-Reactive Protein Total Protein 5.9 L Albumin 3.0 L Lipase Vitamin B12 Coronavirus (PCR) Positive A 04/23/21 04/23/21 04/24/21 09:24 22:38 07:56 WBC Hct MCV Lymph % (Auto) [place] % (Auto) Lymph # (Auto) [place] # (Auto) Seg Neutrophils % Seg Neuts % (Manual) Lymphocytes % (Manual) Monocytes % (Manual) Seg Neutrophils # Seg Neutrophils # Man Lymphocytes # (Manual) Monocytes # (Manual) D-Dimer Sodium Potassium 3.5 L Carbon Dioxide Creatinine 0.5 L Glucose 102 H POC Glucose 111 H Calcium 8.3 L Phosphorus 2.30 L Ferritin AST Lactate Dehydrogenase C-Reactive Protein Total Protein Albumin Lipase Vitamin B12 1039 H Coronavirus (PCR) 04/24/21 04/24/21 04/24/21 07:56 07:56 21:37 WBC Hct MCV 95 H Lymph % (Auto) [place] % (Auto) Lymph # (Auto) [place] # (Auto) Seg Neutrophils % Seg Neuts % (Manual) 80.0 H Lymphocytes % (Manual) 10.0 L Monocytes % (Manual) 10.0 H Seg Neutrophils # Seg Neutrophils # Man Lymphocytes # (Manual) 0.7 L Monocytes # (Manual) D-Dimer Sodium Potassium Carbon Dioxide Creatinine 0.4 L Glucose POC Glucose 111 H Calcium Phosphorus Ferritin AST Lactate Dehydrogenase C-Reactive Protein Total Protein Albumin Lipase Vitamin B12 Coronavirus (PCR) 04/25/21 04/25/21 04/25/21 06:24 06:24 23:13 WBC Hct 46.6 H MCV Lymph % (Auto) [place] % (Auto) Lymph # (Auto) [place] # (Auto) Seg Neutrophils % Seg Neuts % (Manual) 83.0 H Lymphocytes % (Manual) 1.0 L Monocytes % (Manual) 9.0 H Seg Neutrophils # Seg Neutrophils # Man Lymphocytes # (Manual) 0.1 L Monocytes # (Manual) D-Dimer Sodium 136 L 134 L Potassium 3.3 L Carbon Dioxide 21 L Creatinine 0.3 L 0.4 L Glucose 115 H POC Glucose Calcium 7.7 L Phosphorus Ferritin AST 104 H Lactate Dehydrogenase C-Reactive Protein Total Protein 6.1 L Albumin 2.6 L Lipase Vitamin B12 Coronavirus (PCR) 04/26/21 04/27/21 04/27/21 06:29 06:31 06:31 WBC 17.6 H Hct MCV Lymph % (Auto) [place] % (Auto) Lymph # (Auto) [place] # (Auto) Seg Neutrophils % Seg Neuts % (Manual) 87.0 H Lymphocytes % (Manual) 5.0 L Monocytes % (Manual) Seg Neutrophils # Seg Neutrophils # Man 15.3 H Lymphocytes # (Manual) 0.9 L Monocytes # (Manual) 0.9 H D-Dimer Sodium Potassium 3.4 L Carbon Dioxide Creatinine 0.5 L 0.4 L Glucose 112 H 106 H POC Glucose Calcium 8.0 L Phosphorus Ferritin AST 114 H 110 H Lactate Dehydrogenase C-Reactive Protein Total Protein 6.2 L Albumin 2.9 L 2.6 L Lipase Vitamin B12 Coronavirus (PCR) Assessment and Plan 1. Encephalopathy- Multifactorial in this case either infectious / metabolic issues could be the reason , no Seizures reported in the chart , 2. COVID + per the NSG . 3. Currently no active neurological management 4. Call Back with Questions . Dr. Bell
--- NOTE | 2021-04-27 15:20 | Progress Note ---
Assessment and Plan Cultures: Blood culture no growth so far Urine culture no growth so far A/P: 66-year-old man unknown past medical history sent to the hospital with COVID-19 pneumonia and acute encephalopathy. #COVID-19 pneumonia: Patient presented with 3 days of symptoms, chest x-ray with diffuse bilateral infiltrates, admission O2 sats decreased on room air. Inflammatory markers elevated. CRP 9.2. #Acute hypoxemic respiratory failure: Likely secondary to COVID-19 infection. Currently on 2L NC #Acute encephalopathy: May be secondary to acute infection with COVID-19. Recommendations: -Dexamethasone 6 mg IV/PO daily for 10 days -Start Remdesivir for 5 days, now on 2 L, desaturated to 80s overnight. -Obtain q48-72h inflammatory markers - ferritin, Ddimer, CRP, LDH -Continue ceftriaxone 2 gm IV qday and azithromycin 500 mg PO qday for 5 and 3 days respectively -Check new procal to see if leukocytosis reactive to steroids. -Anticoagulation per hospital protocol -Proning as able Thank you for the consult, we will continue to follow. Jackie Crawley MD [facility] O: [phone] F: [phone] Subjective Date of service: 04/27/21 Interval history: Afebrile, white count increased today to 17.6. Imaging personally reviewed: Chest x-ray: Stable bilateral disease. Objective - Exam Narrative Exam: Physical exam deferred to reduce risk of transmission of COVID-19. Please refer to primary team's note. - Constitutional Vitals: Vital Signs Temp Pulse Resp BP Pulse Ox 100.1 F H 138 H 19 108/67 94 04/27/21 11:13 04/27/21 11:13 04/27/21 11:13 04/27/21 11:13 04/27/21 11:13 Temperature -Last 24 Hours Temperature 100.1 F Temperature 99.4 F Temperature 98.0 F - Labs CBC & Chem 7: 04/27/21 06:31 04/27/21 06:31 Labs: Abnormal lab results 04/27/21 04/27/21 Range/Units 06:31 06:31 WBC 17.6 H (4.5-11.0) K/mm3 Seg Neuts % (Manual) 87.0 H (40.0-70.0) % Lymphocytes % (Manual) 5.0 L (13.4-35.0) % Seg Neutrophils # Man 15.3 H (1.8-7.7) K/mm3 Lymphocytes # (Manual) 0.9 L (1.2-5.4) K/mm3 Monocytes # (Manual) 0.9 H (0.0-0.8) K/mm3 Potassium 3.4 L (3.6-5.0) mmol/L Creatinine 0.4 L (0.8-1.3) mg/dL Glucose 106 H (75-100) mg/dL AST 110 H (5-40) units/L Total Protein 6.2 L (6.3-8.2) g/dL Albumin 2.6 L (3.9-5) g/dL
[2021-04-27] MEDS: VANCOMYCIN/NS 1 GM/250 ML 1 GM/250 ML BAG IV SCH (21:34)
[2021-04-27] MEDS: SODIUM CHLORIDE 0.9% 50 ML IVPB IV SCH (21:34)
[2021-04-27] MEDS: REMDESIVIR 100 MG in SODIUM CHLORIDE 0.9% 250ML 250 ML IV SCH (22:05)
[2021-04-28] MEDS: CEFEPIME/NS 1 GM/100 ML 1 GM/100 ML BAG IV SCH ×3 (02:45→17:26)
[2021-04-28 08:21] LABS: Mean Corpuscular HGB Conc 32 % (32-34); Mean Corpuscular Volume 95 fl (84-94); Red Blood Count 4.33 M/mm3 (3.65-5.03); Red Cell Distribution Width 15.1 % (13.2-15.2)
[2021-04-28 08:22] LABS: Platelet Count 231 K/mm3 (140-440)
--- NOTE | 2021-04-28 08:31 | Progress Note ---
Assessment and Plan Assessment and plan: #Acute metabolic encephalopathy -CT head negative for acute abnormality -Baseline patient able to perform ADLs -Could be secondary to COVID infection -Neurology consulted, no recommendations at this time -will continue to monitor #COVID-19 pneumonia #Acute hypoxic respiratory failure -currently on 2L NC -dexamethasone x 10 days -remdesivir started -ID following, assistance appreciated #Leukocytosis -Worsening, WBC count 19.8 today -procalcitonin ordered -Initial blood cultures 04/21 no growth to date x5 days; repeat ordered -Continue vancomycin and cefepime for now -likely 2/2 to steroids vs COVID PNA #Aspiration risk -speech therapy evaluation recommended PEG tube placement -will speak with Guardian to obtain consent for PEG tube #Severe protein calorie malnutrition -BMI 20.3; albumin 2.4 -Nutrition consulted #Social issues -Patient is a [facility] of [facility], attempted to contact his guardian Ms. Mattson to discuss clinical updates ([phone]); will attempt again tomorrow Disposition Plan: continue medical management History Interval history: Patient desaturated to 80% overnight, started on supplemental O2. Comfortable appearing. Hospitalist Physical - Physical exam Narrative exam: GENERAL: Well-developed well-nourished. Sitting on the side of the bed in no acute distress. HEENT: Nasal cannula at 3 L/min CHEST/LUNGS: CTAB. HEART/CARDIOVASCULAR: Tachycardic. No murmur, rubs or gallops appreciated. ABDOMEN: +BS. NT/ND. SKIN: No rashes noted. NEURO: Unable to assess MUSCULOSKELETAL: No joint effusion EXTREMITIES: No cyanosis, clubbing or edema. - Constitutional Vitals: Temp Pulse Resp BP Pulse Ox 98.2 F 118 H 18 109/58 96 04/28/21 05:31 04/27/21 22:42 04/28/21 05:31 04/28/21 05:31 04/28/21 00:39 General appearance: Present: no acute distress, cachectic HEART Score - HEART Score Age: 45-65 Risk factors: 1-2 risk factors - Critical Actions Critical Actions: 0-3 pts:0.9-1.7%risk of adverse cardiac event.Candidate for discharge Results - Labs CBC & Chem 7: 04/28/21 08:03 04/28/21 08:03 Labs: Laboratory Last Values WBC 19.8 K/mm3 (4.5-11.0) H 04/28/21 08:03 RBC 4.33 M/mm3 (3.65-5.03) 04/28/21 08:03 Hgb 13.0 gm/dl (11.8-15.2) 04/28/21 08:03 Hct 41.0 % (35.5-45.6) 04/28/21 08:03 MCV 95 fl (84-94) H 04/28/21 08:03 MCH 30 pg (28-32) 04/28/21 08:03 MCHC 32 % (32-34) 04/28/21 08:03 RDW 15.1 % (13.2-15.2) 04/28/21 08:03 Plt Count 231 K/mm3 (140-440) 04/28/21 08:03 Lymph % (Auto) 5.9 % (13.4-35.0) L 04/23/21 09:24 Will % (Auto) Field Technician 04/25/21 06:24 Eos % (Auto) 0.0 % (0.0-4.3) 04/23/21 09:24 Baso % (Auto) 0.0 % (0.0-1.8) 04/23/21 09:24 Lymph # (Auto) 0.5 K/mm3 (1.2-5.4) L 04/23/21 09:24 Will # (Auto) 0.8 K/mm3 (0.0-0.8) 04/23/21 09:24 Eos # (Auto) 0.0 K/mm3 (0.0-0.4) 04/23/21 09:24 Baso # (Auto) 0.0 K/mm3 (0.0-0.1) 04/23/21 09:24 Add Manual Diff Complete 04/27/21 06:31 Total Counted 100 04/27/21 06:31 Seg Neutrophils % Field Technician 04/28/21 08:03 Seg Neuts % (Manual) 87.0 % (40.0-70.0) H 04/27/21 06:31 Band Neutrophils % 3.0 % 04/27/21 06:31 Lymphocytes % (Manual) 5.0 % (13.4-35.0) L 04/27/21 06:31 Monocytes % (Manual) 5.0 % (0.0-7.3) 04/27/21 06:31 Myelocytes % 1.0 % 04/25/21 06:24 Nucleated RBC % Not Reportable 04/27/21 06:31 Seg Neutrophils # 7.2 K/mm3 (1.8-7.7) 04/23/21 09:24 Seg Neutrophils # Man 15.3 K/mm3 (1.8-7.7) H 04/27/21 06:31 Band Neutrophils # 0.5 K/mm3 04/27/21 06:31 Lymphocytes # (Manual) 0.9 K/mm3 (1.2-5.4) L 04/27/21 06:31 Abs React Lymphs (Man) 0.0 K/mm3 04/27/21 06:31 Monocytes # (Manual) 0.9 K/mm3 (0.0-0.8) H 04/27/21 06:31 Eosinophils # (Manual) 0.0 K/mm3 (0.0-0.4) 04/27/21 06:31 Basophils # (Manual) 0.0 K/mm3 (0.0-0.1) 04/27/21 06:31 Metamyelocytes # 0.0 K/mm3 04/27/21 06:31 Myelocytes # 0.0 K/mm3 04/27/21 06:31 Promyelocytes # 0.0 K/mm3 04/27/21 06:31 Blast Cells # 0.0 K/mm3 04/27/21 06:31 WBC Morphology Not Reportable 04/27/21 06:31 Hypersegmented Neuts Not Reportable 04/27/21 06:31 Hyposegmented Neuts Not Reportable 04/27/21 06:31 Hypogranular Neuts Not Reportable 04/27/21 06:31 Smudge Cells Not Reportable 04/27/21 06:31 Toxic Granulation Not Reportable 04/27/21 06:31 Toxic Vacuolation Not Reportable 04/27/21 06:31 Dohle Bodies Not Reportable 04/27/21 06:31 Pelger-Huet Anomaly Not Reportable 04/27/21 06:31 Jeannette Rods Not Reportable 04/27/21 06:31 Platelet Estimate Consistent w auto 04/27/21 06:31 Clumped Platelets Not Reportable 04/27/21 06:31 Plt Clumps, EDTA Not Reportable 04/27/21 06:31 Large Platelets Not Reportable 04/27/21 06:31 Giant Platelets Not Reportable 04/27/21 06:31 Platelet Satelliting Not Reportable 04/27/21 06:31 Plt Morphology Comment Not Reportable 04/27/21 06:31 RBC Morphology Normal 04/27/21 06:31 Dimorphic RBCs Not Reportable 04/27/21 06:31 Polychromasia Not Reportable 04/27/21 06:31 Hypochromasia Not Reportable 04/27/21 06:31 Poikilocytosis Not Reportable 04/27/21 06:31 Anisocytosis Not Reportable 04/27/21 06:31 Microcytosis Not Reportable 04/27/21 06:31 Macrocytosis Not Reportable 04/27/21 06:31 Spherocytes Not Reportable 04/27/21 06:31 Pappenheimer Bodies Not Reportable 04/27/21 06:31 Sickle Cells Not Reportable 04/27/21 06:31 Target Cells Not Reportable 04/27/21 06:31 Tear Drop Cells Not Reportable 04/27/21 06:31 Ovalocytes Not Reportable 04/27/21 06:31 Helmet Cells Not Reportable 04/27/21 06:31 William-Monserrate Bodies Not Reportable 04/27/21 06:31 [place] Rings Not Reportable 04/27/21 06:31 Canelo Cells Not Reportable 04/27/21 06:31 Bite Cells Not Reportable 04/27/21 06:31 Crenated Cell Not Reportable 04/27/21 06:31 Elliptocytes Not Reportable 04/27/21 06:31 Acanthocytes (Spur) Not Reportable 04/27/21 06:31 Rouleaux Not Reportable 04/27/21 06:31 Hemoglobin C Crystals Not Reportable 04/27/21 06:31 Schistocytes Not Reportable 04/27/21 06:31 Malaria parasites Not Reportable 04/27/21 06:31 Steve Bodies Not Reportable 04/27/21 06:31 Hem Pathologist Commnt No 04/27/21 06:31 APTT 32.0 Sec. (24.2-36.6) 04/21/21 18:02 D-Dimer 621.94 ng/mlDDU (0-234) H 04/22/21 00:20 Sodium 138 mmol/L (137-145) 04/27/21 06:31 Potassium 3.4 mmol/L (3.6-5.0) L 04/27/21 06:31 Chloride 98.9 mmol/L (98-107) 04/27/21 06:31 Carbon Dioxide 26 mmol/L (22-30) 04/27/21 06:31 Anion Gap 17 mmol/L 04/27/21 06:31 BUN 16 mg/dL (9-20) 04/27/21 06:31 Creatinine 0.4 mg/dL (0.8-1.3) L 04/27/21 06:31 Estimated GFR > 60 ml/min 04/27/21 06:31 BUN/Creatinine Ratio 40 % 04/27/21 06:31 Glucose 106 mg/dL (75-100) H 04/27/21 06:31 POC Glucose 97 mg/dL (70-105) 04/27/21 22:52 Lactic Acid 1.20 mmol/L (0.7-2.0) 04/21/21 20:26 Calcium 8.5 mg/dL (8.4-10.2) 04/27/21 06:31 Phosphorus 2.30 mg/dL (2.5-4.5) L 04/23/21 09:24 Magnesium 1.80 mg/dL (1.7-2.3) 04/23/21 09:24 Ferritin 427.3 ng/mL (30.0-300.0) H 04/22/21 00:20 Total Bilirubin 0.50 mg/dL (0.1-1.2) 04/27/21 06:31 AST 110 units/L (5-40) H 04/27/21 06:31 ALT 45 units/L (7-56) 04/27/21 06:31 Alkaline Phosphatase 64 units/L (35-129) 04/27/21 06:31 Lactate Dehydrogenase 379 units/L (91-180) H 04/22/21 00:20 C-Reactive Protein 9.20 mg/dL (0.00-1.30) H 04/22/21 00:20 Total Protein 6.2 g/dL (6.3-8.2) L 04/27/21 06:31 Albumin 2.6 g/dL (3.9-5) L 04/27/21 06:31 Albumin/Globulin Ratio 0.7 % 04/27/21 06:31 Lipase 7 units/L (13-60) L 04/21/21 16:08 Vitamin B12 1039 pg/mL (211-911) H 04/24/21 07:56 Procalcitonin 0.73 ng/mL (<0.15) 04/22/21 00:20 TSH 1.330 mlU/mL (0.270-4.200) 04/24/21 07:56 Free T4 1.03 ng/dL (0.76-1.46) 04/24/21 07:56 Urine Color [place]icia (Yellow) 04/21/21 Unknown Urine Turbidity Clear (Clear) 04/21/21 Unknown Urine pH 5.0 (5.0-7.0) 04/21/21 Unknown Ur Specific [place] 1.027 (1.003-1.030) 04/21/21 Unknown Urine Protein 100 mg/dl mg/dL (Negative) 04/21/21 Unknown Urine Glucose (UA) Neg mg/dL (Negative) 04/21/21 Unknown Urine Ketones 20 mg/dL (Negative) 04/21/21 Unknown Urine Blood Mod (Negative) 04/21/21 Unknown Urine Nitrite Neg (Negative) 04/21/21 Unknown Urine Bilirubin Neg (Negative) 04/21/21 Unknown Urine Urobilinogen 4.0 mg/dL (<2.0) 04/21/21 Unknown Ur Leukocyte Esterase Neg (Negative) 04/21/21 Unknown Urine WBC (Auto) < 1.0 /HPF (0.0-6.0) 04/21/21 Unknown Urine RBC (Auto) < 1.0 /HPF (0.0-6.0) 04/21/21 Unknown Urine Mucus Few /HPF 04/21/21 Unknown Coronavirus (PCR) Positive (Negative) A 04/22/21 Unknown [place]/IV: Voiding Method Diaper Active Medications - Current Medications Current Medications: Generic Name Dose Route Start Last Admin Trade Name Freq PRN Reason Stop Dose Admin Acetaminophen 650 mg 04/21/21 22:31 04/23/21 12:43 Acetaminophen 325 Mg Tab PO 650 mg Q4H PRN Administration Pain MILD(1-3)/Fever >100.5/RAY Dexamethasone 8 mg 04/24/21 10:00 04/27/21 10:00 Dexamethasone 4 Mg Tab PO 04/30/21 10:59 Not Given DAILY [facility] Enoxaparin Sodium 40 mg 04/22/21 10:00 04/27/21 10:00 Enoxaparin 40 Mg/0.4 Ml Inj SUB-Q Not Given QDAY EDDIE Famotidine 20 mg 04/22/21 10:00 04/27/21 21:33 Famotidine 20 Mg Tab PO 20 mg BID EDDIE Administration Guaifenesin 200 mg 04/24/21 08:28 04/25/21 10:23 Guaifenesin 100 Mg/5 Ml Oral Liqd PO 200 mg Q4H PRN Administration Cough REMDESIVIR 100 mg/ Sodium 250 mls @ 500 mls/hr 04/26/21 21:00 04/27/21 22:05 Chloride IV 04/29/21 21:29 500 mls/hr Q24HR@2100 EDDIE Administration Cefepime HCl 1 gm in 100 mls @ 200 mls/hr 04/27/21 09:00 04/28/21 02:45 Cefepime/Ns 1 Gm/100 Ml IV 200 mls/hr Q8H EDDIE Administration Protocol Vancomycin HCl 1 gm in 250 mls @ 166.667 mls/hr 04/27/21 22:00 04/27/21 21:34 Vancomycin/Ns 1 Gm/250 Ml IV 166.667 mls/hr Q12H EDDIE Administration Metoclopramide HCl 10 mg 04/21/21 22:31 Metoclopramide 10 Mg/2 Ml Inj IV Q6H PRN Nausea And Vomiting Ondansetron HCl 4 mg 04/21/21 22:31 Ondansetron 4 Mg/2 Ml Inj IV Q8H PRN Nausea And Vomiting Oxycodone/Acetaminophen 1 tab 04/21/21 22:31 04/22/21 22:35 Oxycodone /Acetaminophen 5-325mg Tab PO 1 tab Q6H PRN Administration Pain, Moderate (4-6) Sodium Chloride 10 ml 04/22/21 10:00 04/27/21 23:48 Sodium Chloride 0.9% 10 Ml Flush Syringe IV 10 ml BID EDDIE Administration Sodium Chloride 10 ml 04/21/21 22:31 Sodium Chloride 0.9% 10 Ml Flush Syringe IV PRN PRN LINE FLUSH Sodium Chloride 50 ml 04/25/21 15:00 04/27/21 21:34 Sodium Chloride 0.9% 50 Ml Ivpb IV 04/28/21 21:01 50 ml Q24HR@2100 EDDIE Administration Nutrition/Malnutrition Assess - Dietary Evaluation Nutrition/Malnutrition Findings: Nutrition Notes Start: 04/22/21 18:07 Freq: Status: Active Protocol: Document 04/27/21 11:59 RICKY (Rec: 04/27/21 12:13 RICKY [id number]) Nutrition Notes Initial or Follow up Brief Note Current Diet NPO (since 04/26 11:10). Height 6 ft Weight 67.8 kg [place] Body Weight (kg) 80.90 BMI 20.2 Weight change and time frame No body weight change reported . Weight Status Appropriate Subjective/Other Information RD consult for routine F/U for assessment on poor oral intake. Pt currently on NPO for risk of aspiration; waiting for PRIMARY CARE MD assessment and recommendations. F/U to follow on PRIMARY CARE MD recs. Percent of energy/protein needs met: Pt currently on NPO. Nutrition Intervention Change Diet Order: Continue NPO as per MD; waiting for PRIMARY CARE MD recommendations. Follow-Up By: 04/29/21 Additional Comments Wait for PRIMARY CARE MD recs. When pertinent, continue monitoring food tolerance, %PO intake of meals, and BM.
[2021-04-28 08:38] LABS: Alanine Aminotransferase 39 units/L (7-56); Albumin 2.4 g/dL (3.9-5); BUN/Creatinine Ratio 60; Blood Urea Nitrogen 12 mg/dL (9-20); Calcium 8.1 mg/dL (8.4-10.2); Hemolysis Index 124
[2021-04-28 09:07] LABS: Total Cells Counted 100
[2021-04-28 09:08] LABS: Band Neutrophils # (Manual) 0.2 K/mm3; Burr Cells 1+; Platelet Estimate Consistent w Auto; Poikilocytosis 1+
--- NOTE | 2021-04-28 12:09 | Electrocardiograph Report ---
[facility] Test Date: 2021-04-27 Test Time: 13:07:34 Pat Name: CHERRY LEDEZMA Department: Room: A364 1 Gender: M Cook Helper Meat: KYLE : 1955 Requested By: DEB MCCULLOUGH Order Number: [id number] Reading MD: Karina Kenny Measurements Intervals Leonard Rate: 121 P: 74 WI: 152 QRS: 0 QRSD: 89 T: 80 QT: 320 QTc: 454 Interpretive Statements Sinus tachycardia Low voltage, extremity leads "Coved" R' waves in anteroseptal leads, consider Brugada syndrome Compared to ECG 04/26/2021 08:07:48 No significant change Electronically Signed On 04-28-2021 12:09:27 EST by Karina Kenny
[2021-04-28] MEDS: DEXAMETHASONE 4 MG TAB PO SCH (12:30)
[2021-04-28] MEDS: VANCOMYCIN/NS 1 GM/250 ML 1 GM/250 ML BAG IV SCH ×2 (12:30→23:30)
[2021-04-28] MEDS: ENOXAPARIN 40 MG/0.4 ML INJ SUB-Q SCH (12:30)
[2021-04-28] MEDS: FAMOTIDINE 20 MG TAB PO SCH ×2 (12:30→23:30)
--- NOTE | 2021-04-28 14:51 | Progress Note ---
Assessment and Plan Cultures: Blood culture no growth so far Urine culture no growth so far A/P: 66-year-old man unknown past medical history sent to the hospital with COVID-19 pneumonia and acute encephalopathy. #COVID-19 pneumonia: Patient presented with 3 days of symptoms, chest x-ray with diffuse bilateral infiltrates, admission O2 sats decreased on room air. Inflammatory markers elevated. CRP 9.2. #Acute hypoxemic respiratory failure: Likely secondary to COVID-19 infection. Currently on 2L NC #Acute encephalopathy: May be secondary to acute infection with COVID-19. Recommendations: -Dexamethasone 6 mg IV/PO daily for 10 days -Start Remdesivir for 5 days, now on 2 L, desaturated to 80s overnight. -Obtain q48-72h inflammatory markers - ferritin, Ddimer, CRP, LDH -Continue cefepime and vancomycin for now -Ordered new blood cultures, if negative for 48 hours stop vancomycin. -Check new procal to see if leukocytosis reactive to steroids. -Anticoagulation per hospital protocol -Proning as able Thank you for the consult, we will continue to follow. Jackie Crawley MD [facility] O: [phone] F: [phone] Subjective Date of service: 04/28/21 Interval history: Afebrile, white count elevated at 19.8. White count elevated at 19.8 with 94% neutrophils. Cefepime and vancomycin were started overnight. Objective - Exam Narrative Exam: Physical exam deferred to reduce risk of transmission of COVID-19. Please refer to primary team's note. - Constitutional Vitals: Vital Signs Temp Pulse Resp BP Pulse Ox 97.9 F 111 H 18 122/59 96 04/28/21 10:00 04/28/21 10:00 04/28/21 10:00 04/28/21 10:00 04/28/21 10:00 Temperature -Last 24 Hours Temperature 97.9 F Temperature 98.2 F Temperature 98.3 F Temperature 97.8 F - Labs CBC & Chem 7: 04/28/21 08:03 04/28/21 08:03 Labs: Abnormal lab results 04/28/21 04/28/21 Range/Units 08:03 08:03 WBC 19.8 H (4.5-11.0) K/mm3 MCV 95 H (84-94) fl Seg Neuts % (Manual) 94.0 H (40.0-70.0) % Lymphocytes % (Manual) 1.0 L (13.4-35.0) % Seg Neutrophils # Man 18.6 H (1.8-7.7) K/mm3 Lymphocytes # (Manual) 0.2 L (1.2-5.4) K/mm3 Creatinine 0.2 L (0.8-1.3) mg/dL Glucose 107 H (75-100) mg/dL Calcium 8.1 L (8.4-10.2) mg/dL AST 87 H (5-40) units/L Total Protein 5.1 L (6.3-8.2) g/dL Albumin 2.4 L (3.9-5) g/dL
[2021-04-28] MEDS: REMDESIVIR 100 MG in SODIUM CHLORIDE 0.9% 250ML 250 ML IV SCH (23:30)
[2021-04-28] MEDS: SODIUM CHLORIDE 0.9% 50 ML IVPB IV SCH (23:30)
[2021-04-29] MEDS: CEFEPIME/NS 1 GM/100 ML 1 GM/100 ML BAG IV SCH ×3 (00:56→18:45)
[2021-04-29 06:13] LABS: Hematocrit 38.1 % (35.5-45.6); Hemoglobin 12.5 gm/dl (11.8-15.2); Mean Corpuscular HGB Conc 33 % (32-34); Mean Corpuscular Volume 94 fl (84-94); Platelet Count 262 K/mm3 (140-440); Red Blood Count 4.07 M/mm3 (3.65-5.03); Red Cell Distribution Width 14.8 % (13.2-15.2)
[2021-04-29 06:16] LABS: Alanine Aminotransferase 37 units/L (7-56); Albumin 2.4 g/dL (3.9-5); Blood Urea Nitrogen 12 mg/dL (9-20); Calcium 8.5 mg/dL (8.4-10.2); Hemolysis Index 3
[2021-04-29 06:31] LABS: BUN/Creatinine Ratio 60
--- NOTE | 2021-04-29 08:15 | Progress Note ---
Assessment and Plan Assessment and plan: #Acute metabolic encephalopathy -CT head negative for acute abnormality -Baseline patient able to perform ADLs -Could be secondary to COVID infection -Neurology consulted, no recommendations at this time -MRI pending -will continue to monitor #COVID-19 pneumonia #Acute hypoxic respiratory failure -currently on 2L NC -dexamethasone x 10 days -continue remdesivir -ID following, assistance appreciated #Leukocytosis -improving, WBC count 14 today -procalcitonin ordered -BCx 04/28 collected -Continue vancomycin and cefepime for now; procalcitonin pending -likely 2/2 to steroids vs COVID PNA #Aspiration risk -speech therapy evaluation recommended PEG tube placement -GI consult for PEG tube placement #Hypokalemia -Potassium 3.0 -will continue to replete monitor #Severe protein calorie malnutrition -BMI 20.3; albumin 2.4 -Nutrition consulted #Social issues -Patient is a herrera of [facility], contact is Ms. Mattson to discuss clinical updates/consent for procedures ([phone]) Disposition Plan: Pending placement History Interval history: Patient desaturated to 80% overnight, started on supplemental O2. Comfortable appearing. Hospitalist Physical - Physical exam Narrative exam: GENERAL: Well-developed well-nourished. Sitting on the side of the bed in no acute distress. HEENT: Nasal cannula at 3 L/min CHEST/LUNGS: CTAB. HEART/CARDIOVASCULAR: RRR. No murmur, rubs or gallops appreciated. ABDOMEN: +BS. NT/ND. NEURO: Unable to assess MUSCULOSKELETAL: No joint effusion EXTREMITIES: No cyanosis, clubbing or edema. - Constitutional Vitals: Temp Pulse Resp BP Pulse Ox 98.1 F 65 20 114/57 98 04/29/21 04:54 04/29/21 04:54 04/29/21 04:54 04/29/21 04:54 04/29/21 04:54 General appearance: Present: no acute distress, cachectic HEART Score - HEART Score Age: 45-65 Risk factors: 1-2 risk factors - Critical Actions Critical Actions: 0-3 pts:0.9-1.7%risk of adverse cardiac event.Candidate for discharge Results - Labs CBC & Chem 7: 04/29/21 04:00 04/29/21 04:00 Labs: Laboratory Last Values WBC 14.0 K/mm3 (4.5-11.0) H 04/29/21 04:00 RBC 4.07 M/mm3 (3.65-5.03) 04/29/21 04:00 Hgb 12.5 gm/dl (11.8-15.2) 04/29/21 04:00 Hct 38.1 % (35.5-45.6) 04/29/21 04:00 MCV 94 fl (84-94) 04/29/21 04:00 MCH 31 pg (28-32) 04/29/21 04:00 MCHC 33 % (32-34) 04/29/21 04:00 RDW 14.8 % (13.2-15.2) 04/29/21 04:00 Plt Count 262 K/mm3 (140-440) 04/29/21 04:00 Lymph % (Auto) 5.9 % (13.4-35.0) L 04/23/21 09:24 [place] % (Auto) Buffing Wheel Inspector 04/25/21 06:24 Eos % (Auto) 0.0 % (0.0-4.3) 04/23/21 09:24 Baso % (Auto) 0.0 % (0.0-1.8) 04/23/21 09:24 Lymph # (Auto) 0.5 K/mm3 (1.2-5.4) L 04/23/21 09:24 [place] # (Auto) 0.8 K/mm3 (0.0-0.8) 04/23/21 09:24 Eos # (Auto) 0.0 K/mm3 (0.0-0.4) 04/23/21 09:24 Baso # (Auto) 0.0 K/mm3 (0.0-0.1) 04/23/21 09:24 Add Manual Diff Complete 04/28/21 08:03 Total Counted 100 04/28/21 08:03 Seg Neutrophils % Buffing Wheel Inspector 04/28/21 08:03 Seg Neuts % (Manual) 94.0 % (40.0-70.0) H 04/28/21 08:03 Band Neutrophils % 1.0 % 04/28/21 08:03 Lymphocytes % (Manual) 1.0 % (13.4-35.0) L 04/28/21 08:03 Monocytes % (Manual) 4.0 % (0.0-7.3) 04/28/21 08:03 Myelocytes % 1.0 % 04/25/21 06:24 Nucleated RBC % Not Reportable 04/28/21 08:03 Seg Neutrophils # 7.2 K/mm3 (1.8-7.7) 04/23/21 09:24 Seg Neutrophils # Man 18.6 K/mm3 (1.8-7.7) H 04/28/21 08:03 Band Neutrophils # 0.2 K/mm3 04/28/21 08:03 Lymphocytes # (Manual) 0.2 K/mm3 (1.2-5.4) L 04/28/21 08:03 Abs React Lymphs (Man) 0.0 K/mm3 04/28/21 08:03 Monocytes # (Manual) 0.8 K/mm3 (0.0-0.8) 04/28/21 08:03 Eosinophils # (Manual) 0.0 K/mm3 (0.0-0.4) 04/28/21 08:03 Basophils # (Manual) 0.0 K/mm3 (0.0-0.1) 04/28/21 08:03 Metamyelocytes # 0.0 K/mm3 04/28/21 08:03 Myelocytes # 0.0 K/mm3 04/28/21 08:03 Promyelocytes # 0.0 K/mm3 04/28/21 08:03 Blast Cells # 0.0 K/mm3 04/28/21 08:03 WBC Morphology Not Reportable 04/28/21 08:03 Hypersegmented Neuts Not Reportable 04/28/21 08:03 Hyposegmented Neuts Not Reportable 04/28/21 08:03 Hypogranular Neuts Not Reportable 04/28/21 08:03 Smudge Cells Not Reportable 04/28/21 08:03 Toxic Granulation Not Reportable 04/28/21 08:03 Toxic Vacuolation Not Reportable 04/28/21 08:03 Dohle Bodies Not Reportable 04/28/21 08:03 Pelger-Huet Anomaly Not Reportable 04/28/21 08:03 Jeannette Rods Not Reportable 04/28/21 08:03 Platelet Estimate Consistent w auto 04/28/21 08:03 Clumped Platelets Not Reportable 04/28/21 08:03 Plt Clumps, EDTA Not Reportable 04/28/21 08:03 Large Platelets Not Reportable 04/28/21 08:03 Giant Platelets Not Reportable 04/28/21 08:03 Platelet Satelliting Not Reportable 04/28/21 08:03 Plt Morphology Comment Not Reportable 04/28/21 08:03 RBC Morphology Not Reportable 04/28/21 08:03 Dimorphic RBCs Not Reportable 04/28/21 08:03 Polychromasia Not Reportable 04/28/21 08:03 Hypochromasia Not Reportable 04/28/21 08:03 Poikilocytosis 1+ 04/28/21 08:03 Anisocytosis Not Reportable 04/28/21 08:03 Microcytosis Not Reportable 04/28/21 08:03 Macrocytosis Not Reportable 04/28/21 08:03 Spherocytes Not Reportable 04/28/21 08:03 Pappenheimer Bodies Not Reportable 04/28/21 08:03 Sickle Cells Not Reportable 04/28/21 08:03 Target Cells Not Reportable 04/28/21 08:03 Tear Drop Cells Not Reportable 04/28/21 08:03 Ovalocytes Not Reportable 04/28/21 08:03 Helmet Cells Not Reportable 04/28/21 08:03 [place] Bodies Not Reportable 04/28/21 08:03 [place] Rings Not Reportable 04/28/21 08:03 [place] Cells 1+ 04/28/21 08:03 Bite Cells Not Reportable 04/28/21 08:03 Crenated Cell Not Reportable 04/28/21 08:03 Elliptocytes Not Reportable 04/28/21 08:03 Acanthocytes (Spur) Not Reportable 04/28/21 08:03 Rouleaux Not Reportable 04/28/21 08:03 Hemoglobin C Crystals Not Reportable 04/28/21 08:03 Schistocytes Not Reportable 04/28/21 08:03 Malaria parasites Not Reportable 04/28/21 08:03 Steve Bodies Not Reportable 04/28/21 08:03 Hem Pathologist Commnt No 04/28/21 08:03 APTT 32.0 Sec. (24.2-36.6) 04/21/21 18:02 D-Dimer 621.94 ng/mlDDU (0-234) H 12/29/21 00:20 Sodium 148 mmol/L (137-145) H 04/29/21 04:00 Potassium 3.0 mmol/L (3.6-5.0) L 04/29/21 04:00 Chloride 110.2 mmol/L (98-107) H 04/29/21 04:00 Carbon Dioxide 23 mmol/L (22-30) 04/29/21 04:00 Anion Gap 18 mmol/L 04/29/21 04:00 BUN 12 mg/dL (9-20) 04/29/21 04:00 Creatinine 0.2 mg/dL (0.8-1.3) L 04/29/21 04:00 Estimated GFR > 60 ml/min 04/29/21 04:00 BUN/Creatinine Ratio 60 % 04/29/21 04:00 Glucose 130 mg/dL (75-100) H 04/29/21 04:00 POC Glucose 97 mg/dL (70-105) 04/27/21 22:52 Lactic Acid 1.20 mmol/L (0.7-2.0) 04/21/21 20:26 Calcium 8.5 mg/dL (8.4-10.2) 04/29/21 04:00 Phosphorus 2.30 mg/dL (2.5-4.5) L 04/23/21 09:24 Magnesium 1.80 mg/dL (1.7-2.3) 04/23/21 09:24 Ferritin 427.3 ng/mL (30.0-300.0) H 04/22/21 00:20 Total Bilirubin 0.70 mg/dL (0.1-1.2) 04/29/21 04:00 AST 63 units/L (5-40) H 04/29/21 04:00 ALT 37 units/L (7-56) 04/29/21 04:00 Alkaline Phosphatase 58 units/L (35-129) 04/29/21 04:00 Lactate Dehydrogenase 379 units/L (91-180) H 04/22/21 00:20 C-Reactive Protein 9.20 mg/dL (0.00-1.30) H 04/22/21 00:20 Total Protein 5.6 g/dL (6.3-8.2) L 04/29/21 04:00 Albumin 2.4 g/dL (3.9-5) L 04/29/21 04:00 Albumin/Globulin Ratio 0.8 % 04/29/21 04:00 Lipase 7 units/L (13-60) L 04/21/21 16:08 Vitamin B12 1039 pg/mL (211-911) H 04/24/21 07:56 Procalcitonin 0.73 ng/mL (<0.15) 04/22/21 00:20 TSH 1.330 mlU/mL (0.270-4.200) 04/24/21 07:56 Free T4 1.03 ng/dL (0.76-1.46) 04/24/21 07:56 Urine Color [place] (Yellow) 04/21/21 Unknown Urine Turbidity Clear (Clear) 04/21/21 Unknown Urine pH 5.0 (5.0-7.0) 04/21/21 Unknown Ur Specific [place] 1.027 (1.003-1.030) 04/21/21 Unknown Urine Protein 100 mg/dl mg/dL (Negative) 04/21/21 Unknown Urine Glucose (UA) Neg mg/dL (Negative) 04/21/21 Unknown Urine Ketones 20 mg/dL (Negative) 04/21/21 Unknown Urine Blood Mod (Negative) 04/21/21 Unknown Urine Nitrite Neg (Negative) 04/21/21 Unknown Urine Bilirubin Neg (Negative) 04/21/21 Unknown Urine Urobilinogen 4.0 mg/dL (<2.0) 04/21/21 Unknown Ur Leukocyte Esterase Neg (Negative) 04/21/21 Unknown Urine WBC (Auto) < 1.0 /HPF (0.0-6.0) 04/21/21 Unknown Urine RBC (Auto) < 1.0 /HPF (0.0-6.0) 04/21/21 Unknown Urine Mucus Few /HPF 04/21/21 Unknown Coronavirus (PCR) Positive (Negative) A 04/22/21 Unknown Microbiology: Microbiology 04/28/21 16:53 Peripheral/Venous Blood Culture - Preliminary Culture in Progress 04/28/21 15:47 Peripheral/Venous Blood Culture - Preliminary Culture in Progress [place]/IV: Voiding Method Incontinent Active Medications - Current Medications Current Medications: Generic Name Dose Route Start Last Admin Trade Name Freq PRN Reason Stop Dose Admin Acetaminophen 650 mg 04/21/21 22:31 12/30/21 12:43 Acetaminophen 325 Mg Tab PO 650 mg Q4H PRN Administration Pain MILD(1-3)/Fever >100.5/RAY Dexamethasone 8 mg 04/24/21 10:00 04/28/21 12:30 Dexamethasone 4 Mg Tab PO 04/30/21 10:59 8 mg DAILY EDDIE Administration Enoxaparin Sodium 40 mg 04/22/21 10:00 04/28/21 12:30 Enoxaparin 40 Mg/0.4 Ml Inj SUB-Q 40 mg QDAY EDDIE Administration Famotidine 20 mg 04/22/21 10:00 04/28/21 23:30 Famotidine 20 Mg Tab PO 20 mg BID EDDIE Administration Guaifenesin 200 mg 04/24/21 08:28 04/25/21 10:23 Guaifenesin 100 Mg/5 Ml Oral Liqd PO 200 mg Q4H PRN Administration Cough REMDESIVIR 100 mg/ Sodium 250 mls @ 500 mls/hr 04/26/21 21:00 04/28/21 23:30 Chloride IV 04/29/21 21:29 500 mls/hr Q24HR@2100 EDDIE Administration Cefepime HCl 1 gm in 100 mls @ 200 mls/hr 04/27/21 09:00 04/29/21 00:56 Cefepime/Ns 1 Gm/100 Ml IV 200 mls/hr Q8H EDDIE Administration Protocol Vancomycin HCl 1 gm in 250 mls @ 166.667 mls/hr 04/27/21 22:00 04/28/21 23:30 Vancomycin/Ns 1 Gm/250 Ml IV 166.667 mls/hr Q12H EDDIE Administration Metoclopramide HCl 10 mg 04/21/21 22:31 Metoclopramide 10 Mg/2 Ml Inj IV Q6H PRN Nausea And Vomiting Ondansetron HCl 4 mg 04/21/21 22:31 Ondansetron 4 Mg/2 Ml Inj IV Q8H PRN Nausea And Vomiting Oxycodone/Acetaminophen 1 tab 04/21/21 22:31 04/22/21 22:35 Oxycodone /Acetaminophen 5-325mg Tab PO 1 tab Q6H PRN Administration Pain, Moderate (4-6) Sodium Chloride 10 ml 04/22/21 10:00 04/28/21 23:31 Sodium Chloride 0.9% 10 Ml Flush Syringe IV 10 ml BID EDDIE Administration Sodium Chloride 10 ml 04/21/21 22:31 Sodium Chloride 0.9% 10 Ml Flush Syringe IV PRN PRN LINE FLUSH Nutrition/Malnutrition Assess - Dietary Evaluation Nutrition/Malnutrition Findings: Nutrition Notes Start: 04/22/21 18:07 Freq: Status: Active Protocol: Document 04/27/21 11:59 RICKY (Rec: 04/27/21 12:13 RICKY [id number]) Nutrition Notes Initial or Follow up Brief Note Current Diet NPO (since 04/26 11:10). Height 6 ft Weight 67.8 kg [place] Body Weight (kg) 80.90 BMI 20.2 Weight change and time frame No body weight change reported . Weight Status Appropriate Subjective/Other Information RD consult for routine F/U for assessment on poor oral intake. Pt currently on NPO for risk of aspiration; waiting for HOME APPLIANCE TECHNICIAN assessment and recommendations. F/U to follow on HOME APPLIANCE TECHNICIAN recs. Percent of energy/protein needs met: Pt currently on NPO. Nutrition Intervention Change Diet Order: Continue NPO as per MD; waiting for HOME APPLIANCE TECHNICIAN recommendations. Follow-Up By: 04/29/21 Additional Comments Wait for HOME APPLIANCE TECHNICIAN recs. When pertinent, continue monitoring food tolerance, %PO intake of meals, and BM.
[2021-04-29] MEDS: ENOXAPARIN 40 MG/0.4 ML INJ SUB-Q SCH (10:49)
[2021-04-29] MEDS: DEXAMETHASONE 4 MG TAB PO SCH (10:49)
[2021-04-29] MEDS: FAMOTIDINE 20 MG TAB PO SCH ×2 (10:50→22:42)
[2021-04-29] MEDS: VANCOMYCIN/NS 1 GM/250 ML 1 GM/250 ML BAG IV SCH ×2 (11:37→23:25)
[2021-04-29] MEDS: POTASSIUM CHLORIDE 10 MEQ 10 MEQ/100 ML BAG IV SCH ×4 (14:24→18:45)
--- NOTE | 2021-04-29 15:08 | Progress Note ---
Assessment and Plan Cultures: Blood culture no growth so far Urine culture no growth so far A/P: 66-year-old man unknown past medical history sent to the hospital with COVID-19 pneumonia and acute encephalopathy. #COVID-19 pneumonia: Patient presented with 3 days of symptoms, chest x-ray with diffuse bilateral infiltrates, admission O2 sats decreased on room air. Inflammatory markers elevated. CRP 9.2. #Acute hypoxemic respiratory failure: Likely secondary to COVID-19 infection. Currently on 2L NC #Acute encephalopathy: May be secondary to acute infection with COVID-19. Recommendations: -Dexamethasone 6 mg IV/PO daily for 10 days -Start Remdesivir for 5 days, if improved no need to stay on 5 days to complete. -Obtain q48-72h inflammatory markers - ferritin, Ddimer, CRP, LDH -Continue cefepime and vancomycin for now -Ordered new blood cultures, if negative for 48 hours stop vancomycin. -Anticoagulation per hospital protocol -Proning as able Thank you for the consult, we will continue to follow. Jackie Crawley MD [facility] ([facility] O: [phone] F: [phone] Subjective Date of service: 04/29/21 Interval history: Afebrile, white count improving now 14. Blood cultures no growth so far. Objective - Exam Narrative Exam: Physical exam deferred to reduce risk of transmission of COVID-19. Please refer to primary team's note. - Constitutional Vitals: Vital Signs Temp Pulse Resp BP Pulse Ox 98.1 F 65 20 114/57 98 04/29/21 04:54 04/29/21 04:54 04/29/21 04:54 04/29/21 04:54 04/29/21 04:54 Temperature -Last 24 Hours Temperature 98.1 F Temperature 98.4 F - Labs CBC & Chem 7: 04/29/21 04:00 04/29/21 04:00 Labs: Abnormal lab results 04/29/21 04/29/21 Range/Units 04:00 04:00 WBC 14.0 H (4.5-11.0) K/mm3 Sodium 148 H (137-145) mmol/L Potassium 3.0 L (3.6-5.0) mmol/L Chloride 110.2 H (98-107) mmol/L Creatinine 0.2 L (0.8-1.3) mg/dL Glucose 130 H (75-100) mg/dL AST 63 H (5-40) units/L Total Protein 5.6 L (6.3-8.2) g/dL Albumin 2.4 L (3.9-5) g/dL
--- NOTE | 2021-04-29 15:48 | Consultation ---
History of Present Illness - Reason for Consult Consult date: 04/29/21 PEG placement Requesting physician: NERY LARRY - History of Present Illness 66-year-old black male on whom I am consulted for G-tube placement as patient did not cooperate with speech therapy and swallow evaluation and is lying in bed, uncooperative. Patient has some sort of a chronic underlying delayed mental development process most likely, and was brought to hospital from [facility] by family. He was brought for altered mental status on April 21 and found to have Covid pneumonia. He has been appropriately treated. However, he does not cooperate and is not eating. Speech pathology saw him, and recommended G-tube feeding. There was no indication that patient is having aspiration or physical problems swallowing. Medications reviewed Past History Past Medical History: No medical history, other (Likely developmental delay, or mental illness - lives in personal nursing home, per ED note) Past Surgical History: No surgical history Social history: Lives alone (Lives in personal care facility, according to ED note. Has court appointed guardian.), full code Family history: hypertension Medications and Allergies Allergies Allergy/AdvReac Type Severity Reaction Status Date / Time No Known Allergies Allergy Verified 04/23/21 12:31 Home Medications Medication Instructions Recorded Confirmed Last Taken Type Divalproex Dr [Tanvir STEWART] 250 mg PO QHS 04/23/21 04/23/21 Unknown History Glycopyrrolate 2 mg PO BID 04/23/21 04/23/21 Unknown History Paliperidone Palmitate [Invega 156 mg IM QMONTH 04/23/21 04/23/21 Unknown History Sustenna] Active Meds: Active Medications Acetaminophen (Acetaminophen 325 Mg Tab) 650 mg PO Q4H PRN PRN Reason: Pain MILD(1-3)/Fever >100.5/RAY Last Admin: 04/23/21 12:43 Dose: 650 mg Dexamethasone (Dexamethasone 4 Mg Tab) 8 mg PO DAILY [facility] Stop: 04/30/21 10:59 Last Admin: 04/29/21 10:49 Dose: 8 mg Enoxaparin Sodium (Enoxaparin 40 Mg/0.4 Ml Inj) 40 mg SUB-Q QDAY [facility] Last Admin: 04/29/21 10:49 Dose: 40 mg Famotidine (Famotidine 20 Mg Tab) 20 mg PO BID [facility] Last Admin: 04/29/21 10:50 Dose: 20 mg Guaifenesin (Guaifenesin 100 Mg/5 Ml Oral Liqd) 200 mg PO Q4H PRN PRN Reason: Cough Last Admin: 04/25/21 10:23 Dose: 200 mg REMDESIVIR 100 mg/ Sodium (Chloride) 250 mls @ 500 mls/hr IV Q24HR@2100 EDDIE Stop: 04/29/21 21:29 Last Admin: 04/28/21 23:30 Dose: 500 mls/hr Cefepime HCl (Cefepime/Ns 1 Gm/100 Ml) 1 gm in 100 mls @ 200 mls/hr IV Q8H [facility]; Protocol Last Admin: 04/29/21 10:39 Dose: 200 mls/hr Vancomycin HCl (Vancomycin/Ns 1 Gm/250 Ml) 1 gm in 250 mls @ 166.667 mls/hr IV Q12H [facility] Last Admin: 04/29/21 11:37 Dose: 166.667 mls/hr Metoclopramide HCl (Metoclopramide 10 Mg/2 Ml Inj) 10 mg IV Q6H PRN PRN Reason: Nausea And Vomiting Ondansetron HCl (Ondansetron 4 Mg/2 Ml Inj) 4 mg IV Q8H PRN PRN Reason: Nausea And Vomiting Oxycodone/Acetaminophen (Oxycodone /Acetaminophen 5-325mg Tab) 1 tab PO Q6H PRN PRN Reason: Pain, Moderate (4-6) Last Admin: 04/22/21 22:35 Dose: 1 tab Sodium Chloride (Sodium Chloride 0.9% 10 Ml Flush Syringe) 10 ml IV BID [facility] Last Admin: 04/29/21 10:51 Dose: 10 ml Sodium Chloride (Sodium Chloride 0.9% 10 Ml Flush Syringe) 10 ml IV PRN PRN PRN Reason: LINE FLUSH Review of Systems ROS unobtainable: due to mental status Exam - Constitutional Vitals: Temp Pulse Resp BP Pulse Ox 98.1 F 65 20 114/57 98 04/29/21 04:54 04/29/21 04:54 04/29/21 04:54 04/29/21 04:54 04/29/21 04:54 General appearance: Present: no acute distress, cachectic, other (Lying in bed, on side, not cooperating or responding) - EENT Eyes: Present: PERRL, EOM intact ENT: poor dentition - Respiratory Respiratory effort: normal Respiratory: bilateral: CTA - Cardiovascular Rhythm: regular Heart Sounds: Present: S1 & S2 - Extremities Extremities: No edema - Abdominal General gastrointestinal: Present: soft, non-tender Results - Labs CBC & Chem 7: 04/29/21 04:00 04/29/21 04:00 Labs: Abnormal lab results 04/29/21 04/29/21 Range/Units 04:00 04:00 WBC 14.0 H (4.5-11.0) K/mm3 Sodium 148 H (137-145) mmol/L Potassium 3.0 L (3.6-5.0) mmol/L Chloride 110.2 H (98-107) mmol/L Creatinine 0.2 L (0.8-1.3) mg/dL Glucose 130 H (75-100) mg/dL AST 63 H (5-40) units/L Total Protein 5.6 L (6.3-8.2) g/dL Albumin 2.4 L (3.9-5) g/dL Assessment and Plan 1. Nutritional support -patient not eating, and I suspect this may be more psychiatric or due to recent illness. No clear indication of physical or neurologic problems with swallowing mechanism. However, if patient fails to eat and no means can be found to encourage it, or to assess whether it is safe for him to swallow, G-tube placement would be reasonable. -Would recommend [place] nutrition in interim. -Will do PEG placement if consent obtained, and just prior to placement, in order to minimize Covid risk to staff.
[2021-04-29] MEDS ORDERED: SODIUM CHLORIDE 0.9% 50 ML IVPB IV ONE (21:00)
[2021-04-29] MEDS: REMDESIVIR 100 MG in SODIUM CHLORIDE 0.9% 250ML 250 ML IV SCH (22:42)
[2021-04-30] MEDS: CEFEPIME/NS 1 GM/100 ML 1 GM/100 ML BAG IV SCH ×3 (02:40→18:17)
[2021-04-30 07:51] LABS: C-Reactive Protein 8.9 mg/dL (0.00-1.30)
--- NOTE | 2021-04-30 07:59 | Progress Note ---
Assessment and Plan Assessment and plan: #Acute metabolic encephalopathy -CT head negative for acute abnormality -Baseline patient able to perform ADLs -Could be secondary to COVID infection -Neurology consulted, no recommendations at this time -MRI pending -will continue to monitor #COVID-19 pneumonia #Acute hypoxic respiratory failure -currently on supplemental O2, will wean as tolerated -dexamethasone x 10 days -s/p remdesivir -ID following, assistance appreciated #Leukocytosis -BCx 04/28 NGTD -Continue vancomycin and cefepime for now; procalcitonin pending -likely 2/2 to steroids vs COVID PNA #Aspiration risk -speech therapy evaluation recommended PEG tube placement -GI consult for PEG tube placement, will perform after approval by Guardian #Hypokalemia -will continue to replete monitor #Severe protein calorie malnutrition -BMI 20.3; albumin 2.4 -Nutrition consulted -will start tube feeding #Social issues -Patient is a herrera of [facility], contact is Ms. Mattson to discuss clinical updates/consent for procedures ([phone]) Disposition Plan: pending placement History Interval history: Patient mumbles with tactile stimulation. Comfortable appearing. On NRB mask. Hospitalist Physical - Physical exam Narrative exam: GENERAL: Well-developed well-nourished. In position in bed, no acute distress. HEENT: Facemask @ 15LPM CHEST/LUNGS: CTAB. HEART/CARDIOVASCULAR: RRR. No murmur, rubs or gallops appreciated. ABDOMEN: +BS. NT/ND. NEURO: Unable to assess MUSCULOSKELETAL: No joint effusion EXTREMITIES: No cyanosis, clubbing or edema. - Constitutional Vitals: Temp Pulse Resp BP Pulse Ox 98.6 F 66 16 102/63 92 04/30/21 04:55 04/30/21 04:55 04/30/21 04:55 04/30/21 04:55 04/30/21 04:55 General appearance: Present: no acute distress, cachectic, other (Lying in bed, on side, not cooperating or responding) HEART Score - HEART Score Age: 45-65 Risk factors: 1-2 risk factors - Critical Actions Critical Actions: 0-3 pts:0.9-1.7%risk of adverse cardiac event.Candidate for discharge Results - Labs CBC & Chem 7: 04/29/21 04:00 04/30/21 08:41 Labs: Laboratory Last Values WBC 14.0 K/mm3 (4.5-11.0) H 04/29/21 04:00 RBC 4.07 M/mm3 (3.65-5.03) 04/29/21 04:00 Hgb 12.5 gm/dl (11.8-15.2) 04/29/21 04:00 Hct 38.1 % (35.5-45.6) 04/29/21 04:00 MCV 94 fl (84-94) 04/29/21 04:00 MCH 31 pg (28-32) 04/29/21 04:00 MCHC 33 % (32-34) 04/29/21 04:00 RDW 14.8 % (13.2-15.2) 04/29/21 04:00 Plt Count 262 K/mm3 (140-440) 04/29/21 04:00 Lymph % (Auto) 5.9 % (13.4-35.0) L 04/23/21 09:24 Dyer % (Auto) Incident Analyst 04/25/21 06:24 Eos % (Auto) 0.0 % (0.0-4.3) 04/23/21 09:24 Baso % (Auto) 0.0 % (0.0-1.8) 04/23/21 09:24 Lymph # (Auto) 0.5 K/mm3 (1.2-5.4) L 04/23/21 09:24 Dyer # (Auto) 0.8 K/mm3 (0.0-0.8) 04/23/21 09:24 Eos # (Auto) 0.0 K/mm3 (0.0-0.4) 04/23/21 09:24 Baso # (Auto) 0.0 K/mm3 (0.0-0.1) 04/23/21 09:24 Add Manual Diff Complete 04/28/21 08:03 Total Counted 100 04/28/21 08:03 Seg Neutrophils % Incident Analyst 04/28/21 08:03 Seg Neuts % (Manual) 94.0 % (40.0-70.0) H 04/28/21 08:03 Band Neutrophils % 1.0 % 04/28/21 08:03 Lymphocytes % (Manual) 1.0 % (13.4-35.0) L 04/28/21 08:03 Monocytes % (Manual) 4.0 % (0.0-7.3) 04/28/21 08:03 Myelocytes % 1.0 % 04/25/21 06:24 Nucleated RBC % Not Reportable 04/28/21 08:03 Seg Neutrophils # 7.2 K/mm3 (1.8-7.7) 04/23/21 09:24 Seg Neutrophils # Man 18.6 K/mm3 (1.8-7.7) H 04/28/21 08:03 Band Neutrophils # 0.2 K/mm3 04/28/21 08:03 Lymphocytes # (Manual) 0.2 K/mm3 (1.2-5.4) L 04/28/21 08:03 Abs React Lymphs (Man) 0.0 K/mm3 04/28/21 08:03 Monocytes # (Manual) 0.8 K/mm3 (0.0-0.8) 04/28/21 08:03 Eosinophils # (Manual) 0.0 K/mm3 (0.0-0.4) 04/28/21 08:03 Basophils # (Manual) 0.0 K/mm3 (0.0-0.1) 04/28/21 08:03 Metamyelocytes # 0.0 K/mm3 04/28/21 08:03 Myelocytes # 0.0 K/mm3 04/28/21 08:03 Promyelocytes # 0.0 K/mm3 04/28/21 08:03 Blast Cells # 0.0 K/mm3 04/28/21 08:03 WBC Morphology Not Reportable 04/28/21 08:03 Hypersegmented Neuts Not Reportable 04/28/21 08:03 Hyposegmented Neuts Not Reportable 04/28/21 08:03 Hypogranular Neuts Not Reportable 04/28/21 08:03 Smudge Cells Not Reportable 04/28/21 08:03 Toxic Granulation Not Reportable 04/28/21 08:03 Toxic Vacuolation Not Reportable 04/28/21 08:03 Dohle Bodies Not Reportable 04/28/21 08:03 Pelger-Huet Anomaly Not Reportable 04/28/21 08:03 Jeannette Rods Not Reportable 04/28/21 08:03 Platelet Estimate Consistent w auto 04/28/21 08:03 Clumped Platelets Not Reportable 04/28/21 08:03 Plt Clumps, EDTA Not Reportable 04/28/21 08:03 Large Platelets Not Reportable 04/28/21 08:03 Giant Platelets Not Reportable 04/28/21 08:03 Platelet Satelliting Not Reportable 04/28/21 08:03 Plt Morphology Comment Not Reportable 04/28/21 08:03 RBC Morphology Not Reportable 04/28/21 08:03 Dimorphic RBCs Not Reportable 04/28/21 08:03 Polychromasia Not Reportable 04/28/21 08:03 Hypochromasia Not Reportable 04/28/21 08:03 Poikilocytosis 1+ 04/28/21 08:03 Anisocytosis Not Reportable 04/28/21 08:03 Microcytosis Not Reportable 04/28/21 08:03 Macrocytosis Not Reportable 04/28/21 08:03 Spherocytes Not Reportable 04/28/21 08:03 Pappenheimer Bodies Not Reportable 04/28/21 08:03 Sickle Cells Not Reportable 04/28/21 08:03 Target Cells Not Reportable 04/28/21 08:03 Tear Drop Cells Not Reportable 04/28/21 08:03 Ovalocytes Not Reportable 04/28/21 08:03 Helmet Cells Not Reportable 04/28/21 08:03 William-Gallatin Bodies Not Reportable 04/28/21 08:03 [place] Rings Not Reportable 04/28/21 08:03 Canelo Cells 1+ 04/28/21 08:03 Bite Cells Not Reportable 04/28/21 08:03 Crenated Cell Not Reportable 04/28/21 08:03 Elliptocytes Not Reportable 04/28/21 08:03 Acanthocytes (Spur) Not Reportable 04/28/21 08:03 Rouleaux Not Reportable 04/28/21 08:03 Hemoglobin C Crystals Not Reportable 04/28/21 08:03 Schistocytes Not Reportable 04/28/21 08:03 Malaria parasites Not Reportable 04/28/21 08:03 Steve Bodies Not Reportable 04/28/21 08:03 Hem Pathologist Commnt No 04/28/21 08:03 APTT 32.0 Sec. (24.2-36.6) 04/21/21 18:02 D-Dimer 690.97 ng/mlDDU (0-234) H 04/30/21 06:20 Sodium 148 mmol/L (137-145) H 04/29/21 04:00 Potassium 3.0 mmol/L (3.6-5.0) L 04/29/21 04:00 Chloride 110.2 mmol/L (98-107) H 04/29/21 04:00 Carbon Dioxide 23 mmol/L (22-30) 04/29/21 04:00 Anion Gap 18 mmol/L 04/29/21 04:00 BUN 12 mg/dL (9-20) 04/29/21 04:00 Creatinine 0.2 mg/dL (0.8-1.3) L 04/29/21 04:00 Estimated GFR > 60 ml/min 04/29/21 04:00 BUN/Creatinine Ratio 60 % 04/29/21 04:00 Glucose 130 mg/dL (75-100) H 04/29/21 04:00 POC Glucose 97 mg/dL (70-105) 04/27/21 22:52 Lactic Acid 1.20 mmol/L (0.7-2.0) 04/21/21 20:26 Calcium 8.5 mg/dL (8.4-10.2) 04/29/21 04:00 Phosphorus 2.30 mg/dL (2.5-4.5) L 04/23/21 09:24 Magnesium 1.80 mg/dL (1.7-2.3) 04/23/21 09:24 Ferritin 930.1 ng/mL (30.0-300.0) H 04/30/21 06:20 Total Bilirubin 0.70 mg/dL (0.1-1.2) 04/29/21 04:00 AST 63 units/L (5-40) H 04/29/21 04:00 ALT 37 units/L (7-56) 04/29/21 04:00 Alkaline Phosphatase 58 units/L (35-129) 04/29/21 04:00 Lactate Dehydrogenase 423 units/L (91-180) H 04/30/21 06:20 C-Reactive Protein 8.90 mg/dL (0.00-1.30) H 04/30/21 06:20 Total Protein 5.6 g/dL (6.3-8.2) L 04/29/21 04:00 Albumin 2.4 g/dL (3.9-5) L 04/29/21 04:00 Albumin/Globulin Ratio 0.8 % 04/29/21 04:00 Lipase 7 units/L (13-60) L 04/21/21 16:08 Vitamin B12 1039 pg/mL (211-911) H 04/24/21 07:56 Procalcitonin 0.73 ng/mL (<0.15) 04/22/21 00:20 TSH 1.330 mlU/mL (0.270-4.200) 04/24/21 07:56 Free T4 1.03 ng/dL (0.76-1.46) 04/24/21 07:56 Urine Color Leticia (Yellow) 04/21/21 Unknown Urine Turbidity Clear (Clear) 04/21/21 Unknown Urine pH 5.0 (5.0-7.0) 04/21/21 Unknown Ur Specific Jeffrey 1.027 (1.003-1.030) 04/21/21 Unknown Urine Protein 100 mg/dl mg/dL (Negative) 04/21/21 Unknown Urine Glucose (UA) Neg mg/dL (Negative) 04/21/21 Unknown Urine Ketones 20 mg/dL (Negative) 04/21/21 Unknown Urine Blood Mod (Negative) 04/21/21 Unknown Urine Nitrite Neg (Negative) 04/21/21 Unknown Urine Bilirubin Neg (Negative) 04/21/21 Unknown Urine Urobilinogen 4.0 mg/dL (<2.0) 04/21/21 Unknown Ur Leukocyte Esterase Neg (Negative) 04/21/21 Unknown Urine WBC (Auto) < 1.0 /HPF (0.0-6.0) 04/21/21 Unknown Urine RBC (Auto) < 1.0 /HPF (0.0-6.0) 04/21/21 Unknown Urine Mucus Few /HPF 04/21/21 Unknown Coronavirus (PCR) Positive (Negative) A 04/22/21 Unknown Microbiology: Microbiology 04/28/21 16:53 Peripheral/Venous Blood Culture - Preliminary NO GROWTH AFTER 24 HOURS 04/28/21 15:47 Peripheral/Venous Blood Culture - Preliminary NO GROWTH AFTER 24 HOURS Braswell/IV: Voiding Method Condom Catheter Active Medications - Current Medications Current Medications: Generic Name Dose Route Start Last Admin Trade Name Freq PRN Reason Stop Dose Admin Acetaminophen 650 mg 04/21/21 22:31 04/23/21 12:43 Acetaminophen 325 Mg Tab PO 650 mg Q4H PRN Administration Pain MILD(1-3)/Fever >100.5/RAY Dexamethasone 8 mg 04/24/21 10:00 04/29/21 10:49 Dexamethasone 4 Mg Tab PO 04/30/21 10:59 8 mg DAILY EDDIE Administration Enoxaparin Sodium 40 mg 04/22/21 10:00 04/29/21 10:49 Enoxaparin 40 Mg/0.4 Ml Inj SUB-Q 40 mg QDAY EDDIE Administration Famotidine 20 mg 04/22/21 10:00 04/29/21 22:42 Famotidine 20 Mg Tab PO Not Given BID EDDIE Guaifenesin 200 mg 04/24/21 08:28 04/25/21 10:23 Guaifenesin 100 Mg/5 Ml Oral Liqd PO 200 mg Q4H PRN Administration Cough Cefepime HCl 1 gm in 100 mls @ 200 mls/hr 04/27/21 09:00 04/30/21 02:40 Cefepime/Ns 1 Gm/100 Ml IV 200 mls/hr Q8H EDDIE Administration Protocol Vancomycin HCl 1 gm in 250 mls @ 166.667 mls/hr 04/27/21 22:00 04/29/21 23:25 Vancomycin/Ns 1 Gm/250 Ml IV 166.667 mls/hr Q12H EDDIE Administration Metoclopramide HCl 10 mg 04/21/21 22:31 Metoclopramide 10 Mg/2 Ml Inj IV Q6H PRN Nausea And Vomiting Ondansetron HCl 4 mg 04/21/21 22:31 Ondansetron 4 Mg/2 Ml Inj IV Q8H PRN Nausea And Vomiting Oxycodone/Acetaminophen 1 tab 04/21/21 22:31 04/22/21 22:35 Oxycodone /Acetaminophen 5-325mg Tab PO 1 tab Q6H PRN Administration Pain, Moderate (4-6) Sodium Chloride 10 ml 04/22/21 10:00 04/29/21 22:43 Sodium Chloride 0.9% 10 Ml Flush Syringe IV 10 ml BID EDDIE Administration Sodium Chloride 10 ml 04/21/21 22:31 Sodium Chloride 0.9% 10 Ml Flush Syringe IV PRN PRN LINE FLUSH Nutrition/Malnutrition Assess - Dietary Evaluation Nutrition/Malnutrition Findings: Nutrition Notes Start: 04/22/21 18:07 Freq: Status: Active Protocol: Document 04/27/21 11:59 RICKY (Rec: 04/27/21 12:13 RICKY [email or web address]) Nutrition Notes Initial or Follow up Brief Note Current Diet NPO (since 04/26 11:10). Height 6 ft Weight 67.8 kg [place] Body Weight (kg) 80.90 BMI 20.2 Weight change and time frame No body weight change reported . Weight Status Appropriate Subjective/Other Information RD consult for routine F/U for assessment on poor oral intake. Pt currently on NPO for risk of aspiration; waiting for DISPATCH SUPERVISOR assessment and recommendations. F/U to follow on DISPATCH SUPERVISOR recs. Percent of energy/protein needs met: Pt currently on NPO. Nutrition Intervention Change Diet Order: Continue NPO as per MD; waiting for DISPATCH SUPERVISOR recommendations. Follow-Up By: 04/29/21 Additional Comments Wait for DISPATCH SUPERVISOR recs. When pertinent, continue monitoring food tolerance, %PO intake of meals, and BM.
[2021-04-30 10:06] LABS: Blood Urea Nitrogen 12 mg/dL (9-20); Calcium 8.7 mg/dL (8.4-10.2); Hemolysis Index 15
[2021-04-30 10:07] LABS: BUN/Creatinine Ratio 40
[2021-04-30] MEDS: VANCOMYCIN/NS 1 GM/250 ML 1 GM/250 ML BAG IV SCH (10:24)
[2021-04-30] MEDS: ENOXAPARIN 40 MG/0.4 ML INJ SUB-Q SCH (10:25)
--- NOTE | 2021-04-30 12:09 | Progress Note ---
Assessment and Plan Cultures: Blood culture no growth so far Urine culture no growth so far A/P: 66-year-old man unknown past medical history sent to the hospital with COVID-19 pneumonia and acute encephalopathy. #COVID-19 pneumonia: Patient presented with 3 days of symptoms, chest x-ray with diffuse bilateral infiltrates, admission O2 sats decreased on room air. Inflammatory markers elevated. CRP 9.2. #Acute hypoxemic respiratory failure: Likely secondary to COVID-19 infection. Currently on 2L NC #Acute encephalopathy: May be secondary to acute infection with COVID-19. Recommendations: -Dexamethasone 6 mg IV/PO daily for 10 days -Start Remdesivir for 5 days, if improved no need to stay on 5 days to complete. -Obtain q48-72h inflammatory markers - ferritin, Ddimer, CRP, LDH -Continue cefepime, complete 5 days -Stopped vancomycin -Anticoagulation per hospital protocol -Proning as able Thank you for the consult, we will continue to follow. Jackie Crawley MD [facility] O: [phone] F: [phone] Subjective Date of service: 04/30/21 Interval history: Afebrile, white count improved yesterday. No new issues. Objective - Exam Narrative Exam: Physical exam deferred to reduce risk of transmission of COVID-19. Please refer to primary team's note. - Constitutional Vitals: Vital Signs Temp Pulse Resp BP Pulse Ox 97.0 F L 118 H 22 110/73 90 04/30/21 11:16 04/30/21 11:16 04/30/21 11:16 04/30/21 11:16 04/30/21 11:16 Temperature -Last 24 Hours Temperature 97.0 F Temperature 98.6 F Temperature 98.0 F Temperature 98.5 F Temperature 97.8 F - Labs CBC & Chem 7: 04/29/21 04:00 04/30/21 08:41 Labs: Abnormal lab results 04/30/21 04/30/21 04/30/21 Range/Units 06:20 06:20 06:20 D-Dimer 690.97 H (0-234) ng/mlDDU Sodium (137-145) mmol/L Potassium (3.6-5.0) mmol/L Chloride (98-107) mmol/L Creatinine (0.8-1.3) mg/dL Glucose (75-100) mg/dL POC Glucose (70-105) mg/dL Ferritin 930.1 H (30.0-300.0) ng/mL Lactate Dehydrogenase 423 H (91-180) units/L C-Reactive Protein 8.90 H (0.00-1.30) mg/dL 04/30/21 04/30/21 04/30/21 Range/Units 08:01 08:41 11:14 D-Dimer (0-234) ng/mlDDU Sodium 151 H (137-145) mmol/L Potassium 3.3 L (3.6-5.0) mmol/L Chloride 110.3 H (98-107) mmol/L Creatinine 0.3 L (0.8-1.3) mg/dL Glucose 119 H (75-100) mg/dL POC Glucose 119 H 113 H (70-105) mg/dL Ferritin (30.0-300.0) ng/mL Lactate Dehydrogenase (91-180) units/L C-Reactive Protein (0.00-1.30) mg/dL
--- NOTE | 2021-04-30 12:54 | XRay Report ---
ABDOMEN 1 VIEW(S) INDICATION / CLINICAL INFORMATION: verify dobhoff for feeding. COMPARISON: None available. FINDINGS: TUBES / LINES: Feeding tube tip at the body of the stomach. BOWEL GAS PATTERN: No significant abnormality. ADDITIONAL FINDINGS: No significant additional findings. Signer Name: Silas Arambula MD Signed: 04/30/2021 12:50 PM Workstation Name: [id number]
[2021-04-30] MEDS: DEXAMETHASONE 4 MG TAB PO SCH (16:02)
[2021-04-30] MEDS: FAMOTIDINE 20 MG TAB PO SCH ×2 (16:02→22:08)
[2021-04-30] MEDS ORDERED: DEXTROSE 5% IN WATER 1,000 ML IV SCH (22:00)
[2021-05-01] MEDS: CEFEPIME/NS 1 GM/100 ML 1 GM/100 ML BAG IV SCH ×3 (00:11→19:20)
[2021-05-01 08:06] LABS: Hematocrit 39.4 % (35.5-45.6); Hemoglobin 12.4 gm/dl (11.8-15.2); Mean Corpuscular HGB Conc 32 % (32-34); Mean Corpuscular Volume 93 fl (84-94); Platelet Count 297 K/mm3 (140-440); Red Blood Count 4.22 M/mm3 (3.65-5.03); Red Cell Distribution Width 14.6 % (13.2-15.2)
--- NOTE | 2021-05-01 08:26 | Progress Note ---
Assessment and Plan Assessment and plan: #Acute metabolic encephalopathy -CT head negative for acute abnormality -Baseline patient able to perform ADLs -Could be secondary to COVID infection -Neurology consulted, no recommendations at this time -MRI pending -will continue to monitor #COVID-19 pneumonia #Acute hypoxic respiratory failure -currently on supplemental O2, will wean as tolerated -dexamethasone x 10 days -s/p remdesivir -ID following, assistance appreciated #Leukocytosis -BCx 04/28 NGTD -Continue vancomycin and cefepime for now; procalcitonin pending -likely 2/2 to steroids vs COVID PNA #Aspiration risk -speech therapy evaluation recommended PEG tube placement -GI consult for PEG tube placement, will perform after approval by [facility] #Hypokalemia -will continue to replete monitor #Severe protein calorie malnutrition -BMI 20.3; albumin 2.4 -Nutrition consulted -will start tube feeding #Social issues -Patient is a herrera of count includes the [facility], contact is Ms. Mattson to discuss clinical updates/consent for procedures ([phone]) History Interval history: Patient alert to self. Mumbles to questions. No acute events overnight. Hospitalist Physical - Physical exam Narrative exam: GENERAL: Well-developed well-nourished. In position in bed, no acute di stress. HEENT: Facemask @ 15LPM CHEST/LUNGS: CTAB. HEART/CARDIOVASCULAR: RRR. No murmur, rubs or gallops appreciated. ABDOMEN: +BS. NT/ND. NEURO: Unable to assess MUSCULOSKELETAL: No joint effusion EXTREMITIES: No cyanosis, clubbing or edema. - Constitutional Vitals: Temp Pulse Resp BP Pulse Ox 100.2 F H 122 H 16 142/82 96 04/30/21 21:42 04/30/21 21:42 04/30/21 21:42 04/30/21 21:42 05/01/21 01:50 General appearance: Present: no acute distress, cachectic, other (Lying in bed, on side, not cooperating or responding) HEART Score - HEART Score Age: 45-65 Risk factors: 1-2 risk factors - Critical Actions Critical Actions: 0-3 pts:0.9-1.7%risk of adverse cardiac event.Candidate for discharge Results - Labs CBC & Chem 7: 05/01/21 07:29 05/01/21 07:29 Labs: Laboratory Last Values WBC 21.4 K/mm3 (4.5-11.0) H 05/01/21 07:29 RBC 4.22 M/mm3 (3.65-5.03) 05/01/21 07:29 Hgb 12.4 gm/dl (11.8-15.2) 05/01/21 07:29 Hct 39.4 % (35.5-45.6) 05/01/21 07:29 MCV 93 fl (84-94) 05/01/21 07:29 MCH 30 pg (28-32) 05/01/21 07:29 MCHC 32 % (32-34) 05/01/21 07:29 RDW 14.6 % (13.2-15.2) 05/01/21 07:29 Plt Count 297 K/mm3 (140-440) 05/01/21 07:29 Lymph % (Auto) 5.9 % (13.4-35.0) L 04/23/21 09:24 [place] % (Auto) Paratransit Operator 04/25/21 06:24 Eos % (Auto) 0.0 % (0.0-4.3) 04/23/21 09:24 Baso % (Auto) 0.0 % (0.0-1.8) 04/23/21 09:24 Lymph # (Auto) 0.5 K/mm3 (1.2-5.4) L 04/23/21 09:24 [place] # (Auto) 0.8 K/mm3 (0.0-0.8) 04/23/21 09:24 Eos # (Auto) 0.0 K/mm3 (0.0-0.4) 04/23/21 09:24 Baso # (Auto) 0.0 K/mm3 (0.0-0.1) 04/23/21 09:24 Add Manual Diff Complete 04/28/21 08:03 Total Counted 100 04/28/21 08:03 Seg Neutrophils % Paratransit Operator 04/28/21 08:03 Seg Neuts % (Manual) 94.0 % (40.0-70.0) H 04/28/21 08:03 Band Neutrophils % 1.0 % 04/28/21 08:03 Lymphocytes % (Manual) 1.0 % (13.4-35.0) L 04/28/21 08:03 Monocytes % (Manual) 4.0 % (0.0-7.3) 04/28/21 08:03 Myelocytes % 1.0 % 04/25/21 06:24 Nucleated RBC % Not Reportable 04/28/21 08:03 Seg Neutrophils # 7.2 K/mm3 (1.8-7.7) 04/23/21 09:24 Seg Neutrophils # Man 18.6 K/mm3 (1.8-7.7) H 04/28/21 08:03 Band Neutrophils # 0.2 K/mm3 04/28/21 08:03 Lymphocytes # (Manual) 0.2 K/mm3 (1.2-5.4) L 04/28/21 08:03 Abs React Lymphs (Man) 0.0 K/mm3 04/28/21 08:03 Monocytes # (Manual) 0.8 K/mm3 (0.0-0.8) 04/28/21 08:03 Eosinophils # (Manual) 0.0 K/mm3 (0.0-0.4) 04/28/21 08:03 Basophils # (Manual) 0.0 K/mm3 (0.0-0.1) 04/28/21 08:03 Metamyelocytes # 0.0 K/mm3 04/28/21 08:03 Myelocytes # 0.0 K/mm3 04/28/21 08:03 Promyelocytes # 0.0 K/mm3 04/28/21 08:03 Blast Cells # 0.0 K/mm3 04/28/21 08:03 WBC Morphology Not Reportable 04/28/21 08:03 Hypersegmented Neuts Not Reportable 04/28/21 08:03 Hyposegmented Neuts Not Reportable 04/28/21 08:03 Hypogranular Neuts Not Reportable 04/28/21 08:03 Smudge Cells Not Reportable 04/28/21 08:03 Toxic Granulation Not Reportable 04/28/21 08:03 Toxic Vacuolation Not Reportable 04/28/21 08:03 Dohle Bodies Not Reportable 04/28/21 08:03 Pelger-Huet Anomaly Not Reportable 04/28/21 08:03 Jeannette Rods Not Reportable 04/28/21 08:03 Platelet Estimate Consistent w auto 04/28/21 08:03 Clumped Platelets Not Reportable 04/28/21 08:03 Plt Clumps, EDTA Not Reportable 04/28/21 08:03 Large Platelets Not Reportable 04/28/21 08:03 Giant Platelets Not Reportable 04/28/21 08:03 Platelet Satelliting Not Reportable 04/28/21 08:03 Plt Morphology Comment Not Reportable 04/28/21 08:03 RBC Morphology Not Reportable 04/28/21 08:03 Dimorphic RBCs Not Reportable 04/28/21 08:03 Polychromasia Not Reportable 04/28/21 08:03 Hypochromasia Not Reportable 04/28/21 08:03 Poikilocytosis 1+ 04/28/21 08:03 Anisocytosis Not Reportable 04/28/21 08:03 Microcytosis Not Reportable 04/28/21 08:03 Macrocytosis Not Reportable 04/28/21 08:03 Spherocytes Not Reportable 04/28/21 08:03 Pappenheimer Bodies Not Reportable 04/28/21 08:03 Sickle Cells Not Reportable 04/28/21 08:03 Target Cells Not Reportable 04/28/21 08:03 Tear Drop Cells Not Reportable 04/28/21 08:03 Ovalocytes Not Reportable 04/28/21 08:03 Helmet Cells Not Reportable 04/28/21 08:03 [place] Bodies Not Reportable 04/28/21 08:03 [place] Rings Not Reportable 04/28/21 08:03 [place] Cells 1+ 04/28/21 08:03 Bite Cells Not Reportable 04/28/21 08:03 Crenated Cell Not Reportable 04/28/21 08:03 Elliptocytes Not Reportable 04/28/21 08:03 Acanthocytes (Spur) Not Reportable 04/28/21 08:03 Rouleaux Not Reportable 04/28/21 08:03 Hemoglobin C Crystals Not Reportable 04/28/21 08:03 Schistocytes Not Reportable 04/28/21 08:03 Malaria parasites Not Reportable 04/28/21 08:03 Steve Bodies Not Reportable 04/28/21 08:03 Hem Pathologist Commnt No 04/28/21 08:03 APTT 32.0 Sec. (24.2-36.6) 04/21/21 18:02 D-Dimer 690.97 ng/mlDDU (0-234) H 04/30/21 06:20 Sodium 151 mmol/L (137-145) H 04/30/21 08:41 Potassium 3.3 mmol/L (3.6-5.0) L 04/30/21 08:41 Chloride 110.3 mmol/L (98-107) H 04/30/21 08:41 Carbon Dioxide 25 mmol/L (22-30) 04/30/21 08:41 Anion Gap 19 mmol/L 04/30/21 08:41 BUN 12 mg/dL (9-20) 04/30/21 08:41 Creatinine 0.3 mg/dL (0.8-1.3) L 04/30/21 08:41 Estimated GFR > 60 ml/min 04/30/21 08:41 BUN/Creatinine Ratio 40 % 04/30/21 08:41 Glucose 119 mg/dL (75-100) H 04/30/21 08:41 POC Glucose 147 mg/dL (70-105) H 05/01/21 07:33 Lactic Acid 1.20 mmol/L (0.7-2.0) 04/21/21 20:26 Calcium 8.7 mg/dL (8.4-10.2) 04/30/21 08:41 Phosphorus 2.30 mg/dL (2.5-4.5) L 04/23/21 09:24 Magnesium 1.80 mg/dL (1.7-2.3) 04/23/21 09:24 Ferritin 930.1 ng/mL (30.0-300.0) H 04/30/21 06:20 Total Bilirubin 0.70 mg/dL (0.1-1.2) 04/29/21 04:00 AST 63 units/L (5-40) H 04/29/21 04:00 ALT 37 units/L (7-56) 04/29/21 04:00 Alkaline Phosphatase 58 units/L (35-129) 04/29/21 04:00 Lactate Dehydrogenase 423 units/L (91-180) H 04/30/21 06:20 C-Reactive Protein 8.90 mg/dL (0.00-1.30) H 04/30/21 06:20 Total Protein 5.6 g/dL (6.3-8.2) L 04/29/21 04:00 Albumin 2.4 g/dL (3.9-5) L 04/29/21 04:00 Albumin/Globulin Ratio 0.8 % 04/29/21 04:00 Lipase 7 units/L (13-60) L 04/21/21 16:08 Vitamin B12 1039 pg/mL (211-911) H 04/24/21 07:56 Procalcitonin 0.73 ng/mL (<0.15) 04/22/21 00:20 TSH 1.330 mlU/mL (0.270-4.200) 04/24/21 07:56 Free T4 1.03 ng/dL (0.76-1.46) 04/24/21 07:56 Urine Color [place] (Yellow) 04/21/21 Unknown Urine Turbidity Clear (Clear) 04/21/21 Unknown Urine pH 5.0 (5.0-7.0) 04/21/21 Unknown Ur Specific [place] 1.027 (1.003-1.030) 04/21/21 Unknown Urine Protein 100 mg/dl mg/dL (Negative) 04/21/21 Unknown Urine Glucose (UA) Neg mg/dL (Negative) 04/21/21 Unknown Urine Ketones 20 mg/dL (Negative) 04/21/21 Unknown Urine Blood Mod (Negative) 04/21/21 Unknown Urine Nitrite Neg (Negative) 04/21/21 Unknown Urine Bilirubin Neg (Negative) 04/21/21 Unknown Urine Urobilinogen 4.0 mg/dL (<2.0) 04/21/21 Unknown Ur Leukocyte Esterase Neg (Negative) 04/21/21 Unknown Urine WBC (Auto) < 1.0 /HPF (0.0-6.0) 04/21/21 Unknown Urine RBC (Auto) < 1.0 /HPF (0.0-6.0) 04/21/21 Unknown Urine Mucus Few /HPF 04/21/21 Unknown Coronavirus (PCR) Positive (Negative) A 04/22/21 Unknown Microbiology: Microbiology 04/28/21 16:53 Peripheral/Venous Blood Culture - Preliminary NO GROWTH AFTER 48 HOURS 04/28/21 15:47 Peripheral/Venous Blood Culture - Preliminary NO GROWTH AFTER 48 HOURS [place]/IV: Voiding Method Condom Catheter Active Medications - Current Medications Current Medications: Generic Name Dose Route Start Last Admin Trade Name Freq PRN Reason Stop Dose Admin Acetaminophen 650 mg 04/21/21 22:31 04/23/21 12:43 Acetaminophen 325 Mg Tab PO 650 mg Q4H PRN Administration Pain MILD(1-3)/Fever >100.5/RAY Enoxaparin Sodium 40 mg 04/22/21 10:00 04/30/21 10:25 Enoxaparin 40 Mg/0.4 Ml Inj SUB-Q 40 mg QDAY EDDIE Administration Famotidine 20 mg 04/22/21 10:00 04/30/21 22:08 Famotidine 20 Mg Tab PO 20 mg BID EDDIE Administration Guaifenesin 200 mg 04/24/21 08:28 04/25/21 10:23 Guaifenesin 100 Mg/5 Ml Oral Liqd PO 200 mg Q4H PRN Administration Cough Cefepime HCl 1 gm in 100 mls @ 200 mls/hr 04/27/21 09:00 05/01/21 00:11 Cefepime/Ns 1 Gm/100 Ml IV 05/02/21 01:29 200 mls/hr Q8H EDDIE Administration Protocol Dextrose 1,000 mls @ 75 mls/hr 04/30/21 22:00 04/30/21 22:09 D5w IV 75 mls/hr DIRECT EDDIE Administration Metoclopramide HCl 10 mg 04/21/21 22:31 Metoclopramide 10 Mg/2 Ml Inj IV Q6H PRN Nausea And Vomiting Ondansetron HCl 4 mg 04/21/21 22:31 Ondansetron 4 Mg/2 Ml Inj IV Q8H PRN Nausea And Vomiting Oxycodone/Acetaminophen 1 tab 04/21/21 22:31 04/22/21 22:35 Oxycodone /Acetaminophen 5-325mg Tab PO 1 tab Q6H PRN Administration Pain, Moderate (4-6) Sodium Chloride 10 ml 04/22/21 10:00 04/30/21 22:08 Sodium Chloride 0.9% 10 Ml Flush Syringe IV 10 ml BID EDDIE Administration Sodium Chloride 10 ml 04/21/21 22:31 Sodium Chloride 0.9% 10 Ml Flush Syringe IV PRN PRN LINE FLUSH Nutrition/Malnutrition Assess - Dietary Evaluation Nutrition/Malnutrition Findings: Nutrition Notes Start: 04/22/21 18:07 Freq: Status: Active Protocol: Document 04/30/21 09:54 RICKY (Rec: 04/30/21 10:05 RICKY [email or web address]) Nutrition Notes Initial or Follow up Reassessment Current Diagnosis Respiratory Failure, Malnutrition Other Pertinent Diagnosis COVID-19, Pneumonia, Ac Encephalopathy, Leukocytosis, Hypokalemia. Current Diet NPO (since 04/26 11:10), TF- Jevity 1.2 Louie @ 56 ml/hr ( since B 05/01). Labs/Tests 04/30: Na 151, K 3.3, Cl 110.3 , Crea 0.3, Glu 119, Ferritin 930.1, LacDH 423, C-RP 8.9, Tpro 5.6, Alb 2.4. Pertinent Medications 04/30: Nutritionally unremarkable. Height 6 ft Weight 67.5 kg [place] Body Weight (kg) 80.90 BMI 20.2 Weight change and time frame 0.3 Kg body weight loss in 3 days reported. Weight Status Appropriate Subjective/Other Information RD consult for routine F/U on FIRE FIGHTER evaluation. MD request write/manage TF. Pt did not cooperate with FIRE FIGHTER and was not evaluated. FIRE FIGHTER recommends PEG tube placement. PT does not eat, but seems to have no swallowing problems. Pt appears to have "some sort of chronic underlying mental development process", according to MD. Pt is [place] of [place], PEG tube placement needs to be authorized by Guardian. Percent of energy/protein needs met: Pt currently on NPO. Prescribed Jevity 1.2 Louie @ 56 ml/hr provides for energy/ protein needs (1,600 Kcal/74 g ) during LOS, 100% Kcal; 90% AA. Burn Absent Trauma Absent GI Symptoms None Food Allergy No Skin Integrity/Comment Clear, warm, dry. Current % PO Negligible #1 Nutrition Diagnosis Inadequate protein-energy intake As Evidenced by Signs and Symptoms MD request for write/manage TF . Diagnosis Progress(for reassessment Worsened documentation) Is patient on ventilator? No Is Patient Ambulatory and/or Out of Bed No REE-([facility]-confined to bed) 1808.940 Kcal/Kg value to use for calculation 24 Approximate Energy Requirements Using 1620 kcal/Kg Calculation Used for Recommendations Kcal/kg Additional Notes Protein: 1.2-1.5 g/Kg; 82-102 g/day. Fluids: 1 ml/Kcal, or as per MD. Nutrition Intervention Change Diet Order: Continue NPO as per MD. Nutrition Support: Start Jevity 1.2 Louie @ 56 ml/ hr. Flush: 90 ml water Q 4 hr. Kcal 1,600 Protein (gm) 74 Carbohydrates (gm) 226 Fat (gm) 52 Fluid (mL) 1,076 Fiber (gm) 24 % RDI: 100% Kcal; 90% AA. Goal #1 Provide at least 75% of energy /protein needs through Enteral Feeding during LOS. Follow-Up By: 05/04/21 Additional Comments Continue monitoring TF tolerance and BM. Wait for MD decision regarding PEG tube placement.
[2021-05-01 08:28] LABS: Blood Urea Nitrogen 11 mg/dL (9-20); Calcium 8.5 mg/dL (8.4-10.2); Hemolysis Index 6
[2021-05-01 08:30] LABS: BUN/Creatinine Ratio 37
[2021-05-01] MEDS: ENOXAPARIN 40 MG/0.4 ML INJ SUB-Q SCH (10:09)
[2021-05-01] MEDS: FAMOTIDINE 20 MG TAB PO SCH ×2 (10:09→21:32)
[2021-05-01] MEDS: POTASSIUM CHLORIDE 20 MEQ PACKET FEEDTUBE SCH ×2 (10:09→20:01)
[2021-05-01] MEDS: FREE WATER PO SCH ×3 (10:15→21:31)
--- NOTE | 2021-05-01 13:36 | Progress Note ---
Assessment and Plan Cultures: Blood culture no growth so far Urine culture no growth so far A/P: 66-year-old man unknown past medical history sent to the hospital with COVID-19 pneumonia and acute encephalopathy. #COVID-19 pneumonia: Patient presented with 3 days of symptoms, chest x-ray with diffuse bilateral infiltrates, admission O2 sats decreased on room air. Inflammatory markers elevated. CRP 9.2. #Acute hypoxemic respiratory failure: Likely secondary to COVID-19 infection. Currently on 2L NC #Acute encephalopathy: May be secondary to acute infection with COVID-19. #Leukocytosis: Likely secondary to steroids. Recommendations: -Dexamethasone 6 mg IV/PO daily for 10 days -Completed Remdesivir x5 days. -Obtain q48-72h inflammatory markers - ferritin, Ddimer, CRP, LDH -Continue cefepime, complete 5 days -Anticoagulation per hospital protocol -Proning as able Thank you for the consult, we will. Please call with questions. Jackie Crawley MD [facility] ([facility] O: [phone] F: [phone] Subjective Date of service: 05/01/21 Interval history: Afebrile, T-max 100.2, white count 21.4. Objective - Exam Narrative Exam: Physical exam deferred to reduce risk of transmission of COVID-19. Please refer to primary team's note. - Constitutional Vitals: Vital Signs Temp Pulse Resp BP Pulse Ox 98.1 F 116 H 24 94/55 100 05/01/21 10:52 05/01/21 10:52 05/01/21 10:52 05/01/21 10:52 05/01/21 13:00 Temperature -Last 24 Hours Temperature 98.1 F Temperature 98.9 F Temperature 100.2 F Temperature 99 F - Labs CBC & Chem 7: 05/01/21 07:29 05/01/21 07:29 Labs: Abnormal lab results 05/01/21 05/01/21 05/01/21 Range/Units 07:29 07:29 07:33 WBC 21.4 H (4.5-11.0) K/mm3 Sodium 150 H (137-145) mmol/L Potassium 2.7 L* (3.6-5.0) mmol/L Chloride 111.2 H (98-107) mmol/L Creatinine 0.3 L (0.8-1.3) mg/dL Glucose 162 H (75-100) mg/dL POC Glucose 147 H (70-105) mg/dL 05/01/21 Range/Units 11:28 WBC (4.5-11.0) K/mm3 Sodium (137-145) mmol/L Potassium (3.6-5.0) mmol/L Chloride (98-107) mmol/L Creatinine (0.8-1.3) mg/dL Glucose (75-100) mg/dL POC Glucose 152 H (70-105) mg/dL
[2021-05-01] MEDS: GLYCOPYRROLATE 2 MG TAB PO SCH ×2 (19:21→21:32)
[2021-05-01] MEDS ORDERED: POTASSIUM CHLORIDE 20 MEQ PACKET PO ONE (20:00)
[2021-05-01] MEDS: VALPROIC ACID 250 MG/5 ML ORAL LIQD PO SCH (21:31)
[2021-05-02] MEDS: CEFEPIME/NS 1 GM/100 ML 1 GM/100 ML BAG IV SCH (00:08)
[2021-05-02] MEDS: FREE WATER PO SCH ×3 (02:58→18:05)
[2021-05-02 06:09] LABS: Hematocrit 37.5 % (35.5-45.6); Hemoglobin 11.8 gm/dl (11.8-15.2); Mean Corpuscular HGB Conc 31 % (32-34); Mean Corpuscular Volume 95 fl (84-94); Platelet Count 287 K/mm3 (140-440); Red Blood Count 3.95 M/mm3 (3.65-5.03); Red Cell Distribution Width 14.9 % (13.2-15.2)
[2021-05-02 06:31] LABS: Blood Urea Nitrogen 13 mg/dL (9-20); Calcium 8.3 mg/dL (8.4-10.2); Hemolysis Index 2
[2021-05-02 06:44] LABS: BUN/Creatinine Ratio 43
--- NOTE | 2021-05-02 07:48 | Progress Note ---
Assessment and Plan Assessment and plan: #Acute metabolic encephalopathy -CT head negative for acute abnormality -Baseline patient able to perform ADLs -Could be secondary to COVID infection -Neurology consulted, no recommendations at this time -MRI pending Guardian authorization -will continue to monitor #COVID-19 pneumonia #Acute hypoxic respiratory failure -currently on supplemental O2, will wean as tolerated -s/p dexamethasone x 10 days -CTA ordered, negative for PE but shows LLL atelectasis likely 2/2 to mucus plugging -s/p remdesivir -ID following, assistance appreciated -Pulmonology consulted for CT findings, assistance appreciated #Leukocytosis -BCx 04/28 NGTD -Continue vancomycin and cefepime for now -likely 2/2 to steroids vs COVID PNA #Aspiration risk -speech therapy evaluation recommended PEG tube placement -GI consult for PEG tube placement, will perform after approval by Guardian #Hypokalemia -will continue to replete monitor #Hypernatremia -250cc q6h free water flushes -will continue to monitor -likely 2/2 to lack of oral intake #Severe protein calorie malnutrition -BMI 20.3; albumin 2.4 -Nutrition consulted -continue tube feeding #Social issues -Patient is a herrera of [facility], contact is Ms. Mattson to discuss clinical updates/consent for procedures ([phone]) Disposition Plan: continue medical management History Interval history: Patient alert to self. No acute events overnight per nursing. Hospitalist Physical - Physical exam Narrative exam: GENERAL: Well-developed well-nourished. In position in bed, no acute distress. HEENT: Facemask @ 15LPM CHEST/LUNGS: CTAB. HEART/CARDIOVASCULAR: Tachycardic. No murmur, rubs or gallops appreciated. ABDOMEN: +BS. NT/ND. NEURO: Unable to assess. - Constitutional Vitals: Temp Pulse Resp BP Pulse Ox 98.9 F 126 H 18 108/74 100 05/02/21 06:24 05/02/21 06:24 05/02/21 06:24 05/02/21 06:24 05/02/21 06:24 General appearance: Present: no acute distress, cachectic, other (Lying in bed, on side, not cooperating or responding) HEART Score - HEART Score Age: 45-65 Risk factors: 1-2 risk factors - Critical Actions Critical Actions: 0-3 pts:0.9-1.7%risk of adverse cardiac event.Candidate for discharge Results - Labs CBC & Chem 7: 05/02/21 05:28 05/02/21 05:28 Labs: Laboratory Last Values WBC 18.9 K/mm3 (4.5-11.0) H 05/02/21 05:28 RBC 3.95 M/mm3 (3.65-5.03) 05/02/21 05:28 Hgb 11.8 gm/dl (11.8-15.2) 05/02/21 05:28 Hct 37.5 % (35.5-45.6) 05/02/21 05:28 MCV 95 fl (84-94) H 05/02/21 05:28 MCH 30 pg (28-32) 05/02/21 05:28 MCHC 31 % (32-34) L 05/02/21 05:28 RDW 14.9 % (13.2-15.2) 05/02/21 05:28 Plt Count 287 K/mm3 (140-440) 05/02/21 05:28 Lymph % (Auto) 5.9 % (13.4-35.0) L 04/23/21 09:24 [place] % (Auto) Client Support Representative 04/25/21 06:24 Eos % (Auto) 0.0 % (0.0-4.3) 04/23/21 09:24 Baso % (Auto) 0.0 % (0.0-1.8) 04/23/21 09:24 Lymph # (Auto) 0.5 K/mm3 (1.2-5.4) L 04/23/21 09:24 [place] # (Auto) 0.8 K/mm3 (0.0-0.8) 04/23/21 09:24 Eos # (Auto) 0.0 K/mm3 (0.0-0.4) 04/23/21 09:24 Baso # (Auto) 0.0 K/mm3 (0.0-0.1) 04/23/21 09:24 Add Manual Diff Complete 04/28/21 08:03 Total Counted 100 04/28/21 08:03 Seg Neutrophils % Client Support Representative 04/28/21 08:03 Seg Neuts % (Manual) 94.0 % (40.0-70.0) H 04/28/21 08:03 Band Neutrophils % 1.0 % 04/28/21 08:03 Lymphocytes % (Manual) 1.0 % (13.4-35.0) L 04/28/21 08:03 Monocytes % (Manual) 4.0 % (0.0-7.3) 04/28/21 08:03 Myelocytes % 1.0 % 04/25/21 06:24 Nucleated RBC % Not Reportable 04/28/21 08:03 Seg Neutrophils # 7.2 K/mm3 (1.8-7.7) 04/23/21 09:24 Seg Neutrophils # Man 18.6 K/mm3 (1.8-7.7) H 04/28/21 08:03 Band Neutrophils # 0.2 K/mm3 04/28/21 08:03 Lymphocytes # (Manual) 0.2 K/mm3 (1.2-5.4) L 04/28/21 08:03 Abs React Lymphs (Man) 0.0 K/mm3 04/28/21 08:03 Monocytes # (Manual) 0.8 K/mm3 (0.0-0.8) 04/28/21 08:03 Eosinophils # (Manual) 0.0 K/mm3 (0.0-0.4) 04/28/21 08:03 Basophils # (Manual) 0.0 K/mm3 (0.0-0.1) 04/28/21 08:03 Metamyelocytes # 0.0 K/mm3 04/28/21 08:03 Myelocytes # 0.0 K/mm3 04/28/21 08:03 Promyelocytes # 0.0 K/mm3 04/28/21 08:03 Blast Cells # 0.0 K/mm3 04/28/21 08:03 WBC Morphology Not Reportable 04/28/21 08:03 Hypersegmented Neuts Not Reportable 04/28/21 08:03 Hyposegmented Neuts Not Reportable 04/28/21 08:03 Hypogranular Neuts Not Reportable 04/28/21 08:03 Smudge Cells Not Reportable 04/28/21 08:03 Toxic Granulation Not Reportable 04/28/21 08:03 Toxic Vacuolation Not Reportable 04/28/21 08:03 Dohle Bodies Not Reportable 04/28/21 08:03 Pelger-Huet Anomaly Not Reportable 04/28/21 08:03 Jeannette Rods Not Reportable 04/28/21 08:03 Platelet Estimate Consistent w auto 04/28/21 08:03 Clumped Platelets Not Reportable 04/28/21 08:03 Plt Clumps, EDTA Not Reportable 04/28/21 08:03 Large Platelets Not Reportable 04/28/21 08:03 Giant Platelets Not Reportable 04/28/21 08:03 Platelet Satelliting Not Reportable 04/28/21 08:03 Plt Morphology Comment Not Reportable 04/28/21 08:03 RBC Morphology Not Reportable 04/28/21 08:03 Dimorphic RBCs Not Reportable 04/28/21 08:03 Polychromasia Not Reportable 04/28/21 08:03 Hypochromasia Not Reportable 04/28/21 08:03 Poikilocytosis 1+ 04/28/21 08:03 Anisocytosis Not Reportable 04/28/21 08:03 Microcytosis Not Reportable 04/28/21 08:03 Macrocytosis Not Reportable 04/28/21 08:03 Spherocytes Not Reportable 04/28/21 08:03 Pappenheimer Bodies Not Reportable 04/28/21 08:03 Sickle Cells Not Reportable 04/28/21 08:03 Target Cells Not Reportable 04/28/21 08:03 Tear Drop Cells Not Reportable 04/28/21 08:03 Ovalocytes Not Reportable 04/28/21 08:03 Helmet Cells Not Reportable 04/28/21 08:03 [place] Bodies Not Reportable 04/28/21 08:03 [place] Rings Not Reportable 04/28/21 08:03 [place] Cells 1+ 04/28/21 08:03 Bite Cells Not Reportable 04/28/21 08:03 Crenated Cell Not Reportable 04/28/21 08:03 Elliptocytes Not Reportable 04/28/21 08:03 Acanthocytes (Spur) Not Reportable 04/28/21 08:03 Rouleaux Not Reportable 04/28/21 08:03 Hemoglobin C Crystals Not Reportable 04/28/21 08:03 Schistocytes Not Reportable 04/28/21 08:03 Malaria parasites Not Reportable 04/28/21 08:03 Steve Bodies Not Reportable 04/28/21 08:03 Hem Pathologist Commnt No 04/28/21 08:03 APTT 32.0 Sec. (24.2-36.6) 04/21/21 18:02 D-Dimer 690.97 ng/mlDDU (0-234) H 04/30/21 06:20 Sodium 151 mmol/L (137-145) H 05/02/21 05:28 Potassium 4.0 mmol/L (3.6-5.0) 05/02/21 05:28 Chloride 111.4 mmol/L (98-107) H 05/02/21 05:28 Carbon Dioxide 25 mmol/L (22-30) 05/02/21 05:28 Anion Gap 19 mmol/L 05/02/21 05:28 BUN 13 mg/dL (9-20) 05/02/21 05:28 Creatinine 0.3 mg/dL (0.8-1.3) L 05/02/21 05:28 Estimated GFR > 60 ml/min 05/02/21 05:28 BUN/Creatinine Ratio 43 % 05/02/21 05:28 Glucose 132 mg/dL (75-100) H 05/02/21 05:28 POC Glucose 170 mg/dL (70-105) H 05/02/21 07:42 Lactic Acid 1.20 mmol/L (0.7-2.0) 04/21/21 20:26 Calcium 8.3 mg/dL (8.4-10.2) L 05/02/21 05:28 Phosphorus 2.30 mg/dL (2.5-4.5) L 04/23/21 09:24 Magnesium 1.80 mg/dL (1.7-2.3) 04/23/21 09:24 Ferritin 930.1 ng/mL (30.0-300.0) H 04/30/21 06:20 Total Bilirubin 0.70 mg/dL (0.1-1.2) 04/29/21 04:00 AST 63 units/L (5-40) H 04/29/21 04:00 ALT 37 units/L (7-56) 04/29/21 04:00 Alkaline Phosphatase 58 units/L (35-129) 04/29/21 04:00 Lactate Dehydrogenase 423 units/L (91-180) H 04/30/21 06:20 C-Reactive Protein 8.90 mg/dL (0.00-1.30) H 04/30/21 06:20 Total Protein 5.6 g/dL (6.3-8.2) L 04/29/21 04:00 Albumin 2.4 g/dL (3.9-5) L 04/29/21 04:00 Albumin/Globulin Ratio 0.8 % 04/29/21 04:00 Lipase 7 units/L (13-60) L 04/21/21 16:08 Vitamin B12 1039 pg/mL (211-911) H 04/24/21 07:56 Procalcitonin 0.73 ng/mL (<0.15) 04/22/21 00:20 TSH 1.330 mlU/mL (0.270-4.200) 04/24/21 07:56 Free T4 1.03 ng/dL (0.76-1.46) 04/24/21 07:56 Urine Color [place] (Yellow) 04/21/21 Unknown Urine Turbidity Clear (Clear) 04/21/21 Unknown Urine pH 5.0 (5.0-7.0) 04/21/21 Unknown Ur Specific [place] 1.027 (1.003-1.030) 04/21/21 Unknown Urine Protein 100 mg/dl mg/dL (Negative) 04/21/21 Unknown Urine Glucose (UA) Neg mg/dL (Negative) 04/21/21 Unknown Urine Ketones 20 mg/dL (Negative) 04/21/21 Unknown Urine Blood Mod (Negative) 04/21/21 Unknown Urine Nitrite Neg (Negative) 04/21/21 Unknown Urine Bilirubin Neg (Negative) 04/21/21 Unknown Urine Urobilinogen 4.0 mg/dL (<2.0) 04/21/21 Unknown Ur Leukocyte Esterase Neg (Negative) 04/21/21 Unknown Urine WBC (Auto) < 1.0 /HPF (0.0-6.0) 04/21/21 Unknown Urine RBC (Auto) < 1.0 /HPF (0.0-6.0) 04/21/21 Unknown Urine Mucus Few /HPF 04/21/21 Unknown Coronavirus (PCR) Positive (Negative) A 04/22/21 Unknown Microbiology: Microbiology 04/28/21 16:53 Peripheral/Venous Blood Culture - Preliminary NO GROWTH AFTER 72 HOURS 04/28/21 15:47 Peripheral/Venous Blood Culture - Preliminary NO GROWTH AFTER 72 HOURS [place]/IV: Voiding Method Condom Catheter Active Medications - Current Medications Current Medications: Generic Name Dose Route Start Last Admin Trade Name Freq PRN Reason Stop Dose Admin Acetaminophen 650 mg 04/21/21 22:31 04/23/21 12:43 Acetaminophen 325 Mg Tab PO 650 mg Q4H PRN Administration Pain MILD(1-3)/Fever >100.5/RAY Enoxaparin Sodium 40 mg 04/22/21 10:00 05/01/21 10:09 Enoxaparin 40 Mg/0.4 Ml Inj SUB-Q 40 mg QDAY EDDIE Administration Famotidine 20 mg 04/22/21 10:00 05/01/21 21:32 Famotidine 20 Mg Tab PO 20 mg BID EDDIE Administration Glycopyrrolate 2 mg 05/01/21 14:00 05/01/21 21:32 Glycopyrrolate 2 Mg Tab PO 2 mg BID EDDIE Administration Guaifenesin 200 mg 04/24/21 08:28 04/25/21 10:23 Guaifenesin 100 Mg/5 Ml Oral Liqd PO 200 mg Q4H PRN Administration Cough Dextrose 1,000 mls @ 75 mls/hr 04/30/21 22:00 04/30/21 22:09 D5w IV 75 mls/hr DIRECT EDDIE Administration Metoclopramide HCl 10 mg 04/21/21 22:31 Metoclopramide 10 Mg/2 Ml Inj IV Q6H PRN Nausea And Vomiting Ondansetron HCl 4 mg 04/21/21 22:31 Ondansetron 4 Mg/2 Ml Inj IV Q8H PRN Nausea And Vomiting Oxycodone/Acetaminophen 1 tab 04/21/21 22:31 04/22/21 22:35 Oxycodone /Acetaminophen 5-325mg Tab PO 1 tab Q6H PRN Administration Pain, Moderate (4-6) Sodium Chloride 10 ml 04/22/21 10:00 05/01/21 21:32 Sodium Chloride 0.9% 10 Ml Flush Syringe IV 10 ml BID EDDIE Administration Sodium Chloride 10 ml 04/21/21 22:31 Sodium Chloride 0.9% 10 Ml Flush Syringe IV PRN PRN LINE FLUSH Valproic Acid 250 mg 05/01/21 22:00 05/01/21 21:31 Valproic Acid 250 Mg/5 Ml Oral Liqd PO 250 mg QHS EDDIE Administration Nutrition/Malnutrition Assess - Dietary Evaluation Nutrition/Malnutrition Findings: Nutrition Notes Start: 04/22/21 18:07 Freq: Status: Active Protocol: Document 04/30/21 09:54 RICKY (Rec: 04/30/21 10:05 RICKY [id number]) Nutrition Notes Initial or Follow up Reassessment Current Diagnosis Respiratory Failure, Malnutrition Other Pertinent Diagnosis COVID-19, Pneumonia, Ac Encephalopathy, Leukocytosis, Hypokalemia. Current Diet NPO (since 04/26 11:10), TF- Jevity 1.2 Louie @ 56 ml/hr ( since B 05/01). Labs/Tests 04/30: Na 151, K 3.3, Cl 110.3 , Crea 0.3, Glu 119, Ferritin 930.1, LacDH 423, C-RP 8.9, Tpro 5.6, Alb 2.4. Pertinent Medications 04/30: Nutritionally unremarkable. Height 6 ft Weight 67.5 kg [place] Body Weight (kg) 80.90 BMI 20.2 Weight change and time frame 0.3 Kg body weight loss in 3 days reported. Weight Status Appropriate Subjective/Other Information RD consult for routine F/U on HOUSING COUNSELOR evaluation. MD request write/manage TF. Pt did not cooperate with HOUSING COUNSELOR and was not evaluated. HOUSING COUNSELOR recommends PEG tube placement. PT does not eat, but seems to have no swallowing problems. Pt appears to have "some sort of chronic underlying mental development process", according to MD. Pt is [place] of state, PEG tube placement needs to be authorized by Guardian. Percent of energy/protein needs met: Pt currently on NPO. Prescribed Jevity 1.2 Louie @ 56 ml/hr provides for energy/ protein needs (1,600 Kcal/74 g ) during LOS, 100% Kcal; 90% AA. Burn Absent Trauma Absent GI Symptoms None Food Allergy No Skin Integrity/Comment Clear, warm, dry. Current % PO Negligible #1 Nutrition Diagnosis Inadequate protein-energy intake As Evidenced by Signs and Symptoms MD request for write/manage TF . Diagnosis Progress(for reassessment Worsened documentation) Is patient on ventilator? No Is Patient Ambulatory and/or Out of Bed No REE-([place] Jeor-confined to bed) 1808.940 Kcal/Kg value to use for calculation 24 Approximate Energy Requirements Using 1620 kcal/Kg Calculation Used for Recommendations Kcal/kg Additional Notes Protein: 1.2-1.5 g/Kg; 82-102 g/day. Fluids: 1 ml/Kcal, or as per MD. Nutrition Intervention Change Diet Order: Continue NPO as per MD. Nutrition Support: Start Jevity 1.2 Louie @ 56 ml/ hr. Flush: 90 ml water Q 4 hr. Kcal 1,600 Protein (gm) 74 Carbohydrates (gm) 226 Fat (gm) 52 Fluid (mL) 1,076 Fiber (gm) 24 % RDI: 100% Kcal; 90% AA. Goal #1 Provide at least 75% of energy /protein needs through Enteral Feeding during LOS. Follow-Up By: 05/04/21 Additional Comments Continue monitoring TF tolerance and BM. Wait for MD decision regarding PEG tube placement.
--- NOTE | 2021-05-02 10:13 | Cat Scan Report ---
CTA CHEST WITH IV CONTRAST INDICATION: R/O PE. Shortness of breath TECHNIQUE: Axial CT images were obtained through the chest after injection of 75 cc Omni 350 IV contrast. 3 plan e MIP reconstructions were produced. All CT scans at this location are performed using CT dose reduct ion for ALARA by means of automated exposure control. COMPARISON: None available. FINDINGS: PULMONARY ARTERIES: No pulmonary emboli. THORACIC AORTA: No acute abnormality. HEART: Normal. CORONARY ARTERIES: No significant calcification. PLEURA: No pleural effusion. No pneumothorax. LYMPH NODES: No significant adenopathy. LUNGS: Left lower lobe mucus plugging with complete left lower lobe atelectasis moderate bilateral pa tchy airspace opacities characteristic for pneumonia ADDITIONAL FINDINGS: None. UPPER ABDOMEN: NG tube enters stomach. No acute findings. SKELETAL STRUCTURES: No significant osseous abnormality. IMPRESSION: 1. No CT evidence for pulmonary embolism. 2. Bilateral pneumonia. 2. Complete left lower lobe atelectasis secondary to mucus plugging Signer Name: Santos Barba MD Signed: 05/02/2021 10:09 AM Workstation Name: [id number]
--- NOTE | 2021-05-02 12:28 | Consultation ---
History of Present Illness Reason for consult: abnormal CXR/CT History of present illness: This is a patient lives in personal residential found to have covid and admitted with covid pneumonia. He had a cta done which showed bilat pneumonia and atelectasis on lt ll Presently pt is on NRB mask. Opens eyes, nonverbal Past History Past Medical History: No medical history, other (Likely developmental delay, or mental illness - lives in personal residential, per ED note) Past Surgical History: No surgical history Social history: Lives alone (Lives in personal care facility, according to ED note. Has court appointed guardian.), full code Family history: hypertension Medications and Allergies Allergies Allergy/AdvReac Type Severity Reaction Status Date / Time No Known Allergies Allergy Verified 04/23/21 12:31 Home Medications Medication Instructions Recorded Confirmed Last Taken Type Divalproex Dr [DepaKOTE DR] 250 mg PO QHS 04/23/21 04/23/21 Unknown History Glycopyrrolate 2 mg PO BID 04/23/21 04/23/21 Unknown History Paliperidone Palmitate [Invega 156 mg IM QMONTH 04/23/21 04/23/21 Unknown History Sustenna] Active Meds: Active Medications Acetaminophen (Acetaminophen 325 Mg Tab) 650 mg PO Q4H PRN PRN Reason: Pain MILD(1-3)/Fever >100.5/RAY Last Admin: 04/23/21 12:43 Dose: 650 mg Enoxaparin Sodium (Enoxaparin 40 Mg/0.4 Ml Inj) 40 mg SUB-Q QDAY [facility] Last Admin: 05/01/21 10:09 Dose: 40 mg Famotidine (Famotidine 20 Mg Tab) 20 mg PO BID EDDIE Last Admin: 05/01/21 21:32 Dose: 20 mg Glycopyrrolate (Glycopyrrolate 2 Mg Tab) 2 mg PO BID [facility] Last Admin: 05/01/21 21:32 Dose: 2 mg Guaifenesin (Guaifenesin 100 Mg/5 Ml Oral Liqd) 200 mg PO Q4H PRN PRN Reason: Cough Last Admin: 04/25/21 10:23 Dose: 200 mg Dextrose (D5w) 1,000 mls @ 75 mls/hr IV DIRECT EDDIE Last Admin: 04/30/21 22:09 Dose: 75 mls/hr Metoclopramide HCl (Metoclopramide 10 Mg/2 Ml Inj) 10 mg IV Q6H PRN PRN Reason: Nausea And Vomiting Ondansetron HCl (Ondansetron 4 Mg/2 Ml Inj) 4 mg IV Q8H PRN PRN Reason: Nausea And Vomiting Oxycodone/Acetaminophen (Oxycodone /Acetaminophen 5-325mg Tab) 1 tab PO Q6H PRN PRN Reason: Pain, Moderate (4-6) Last Admin: 04/22/21 22:35 Dose: 1 tab Sodium Chloride (Sodium Chloride 0.9% 10 Ml Flush Syringe) 10 ml IV BID [facility] Last Admin: 05/01/21 21:32 Dose: 10 ml Sodium Chloride (Sodium Chloride 0.9% 10 Ml Flush Syringe) 10 ml IV PRN PRN PRN Reason: LINE FLUSH Valproic Acid (Valproic Acid 250 Mg/5 Ml Oral Liqd) 250 mg PO QHS [facility] Last Admin: 05/01/21 21:31 Dose: 250 mg Review of Systems ROS unobtainable: due to mental status Physical Examination Vital signs: Vital Signs Temp Pulse Resp BP Pulse Ox 98.4 F 104 H 16 105/74 97 04/21/21 15:16 04/21/21 15:16 04/21/21 15:16 04/21/21 15:16 04/21/21 15:16 General appearance: other (on nrb mask sat 100%, opens eyes to tactile stimuli doesnt appear to follow command (spoke w NA who reports that pts MS has been like this since admission)) ENT: oropharynx moist, oropharynx dry Ascultation: Bilateral: rhonchi Cardiovascular: regular rate and rhythm, PVC's noted Gastrointestinal: normoactive bowel sounds, non-distended Results - Laboratory Findings CBC and BMP: 05/02/21 05:28 05/02/21 05:28 PT/INR, D-dimer D-Dimer 690.97 ng/mlDDU (0-234) H 04/30/21 06:20 Abnormal lab findings: Abnormal Labs 04/21/21 04/21/21 04/22/21 16:08 16:08 00:20 WBC Hct MCV 96 H MCHC Lymph % (Auto) 8.5 L [place] % (Auto) 15.8 H Lymph # (Auto) 0.9 L [place] # (Auto) 1.7 H Seg Neutrophils % 75.6 H Seg Neuts % (Manual) Lymphocytes % (Manual) Monocytes % (Manual) Seg Neutrophils # 8.0 H Seg Neutrophils # Man Lymphocytes # (Manual) Monocytes # (Manual) D-Dimer 621.94 H Sodium Potassium Chloride Carbon Dioxide Creatinine 0.6 L Glucose 107 H POC Glucose Calcium 8.3 L Phosphorus Ferritin AST 136 H Lactate Dehydrogenase C-Reactive Protein Total Protein 6.2 L Albumin 3.0 L Lipase 7 L Vitamin B12 Coronavirus (PCR) 04/22/21 04/22/21 04/22/21 00:20 00:20 06:51 WBC Hct MCV 95 H MCHC Lymph % (Auto) [place] % (Auto) Lymph # (Auto) [place] # (Auto) Seg Neutrophils % Seg Neuts % (Manual) 91.0 H Lymphocytes % (Manual) 1.0 L Monocytes % (Manual) Seg Neutrophils # Seg Neutrophils # Man Lymphocytes # (Manual) 0.1 L Monocytes # (Manual) D-Dimer Sodium Potassium Chloride Carbon Dioxide Creatinine Glucose POC Glucose Calcium Phosphorus Ferritin 427.3 H AST Lactate Dehydrogenase 379 H C-Reactive Protein 9.20 H Total Protein Albumin Lipase Vitamin B12 Coronavirus (PCR) 04/22/21 04/22/21 04/23/21 06:51 Unknown 09:24 WBC Hct MCV 96 H MCHC Lymph % (Auto) 5.9 L [place] % (Auto) 9.3 H Lymph # (Auto) 0.5 L [place] # (Auto) Seg Neutrophils % 84.8 H Seg Neuts % (Manual) Lymphocytes % (Manual) Monocytes % (Manual) Seg Neutrophils # Seg Neutrophils # Man Lymphocytes # (Manual) Monocytes # (Manual) D-Dimer Sodium Potassium Chloride Carbon Dioxide Creatinine 0.4 L Glucose 114 H POC Glucose Calcium 8.0 L Phosphorus Ferritin AST 116 H Lactate Dehydrogenase C-Reactive Protein Total Protein 5.9 L Albumin 3.0 L Lipase Vitamin B12 Coronavirus (PCR) Positive A 04/23/21 04/23/21 04/24/21 09:24 22:38 07:56 WBC Hct MCV MCHC Lymph % (Auto) [place] % (Auto) Lymph # (Auto) [place] # (Auto) Seg Neutrophils % Seg Neuts % (Manual) Lymphocytes % (Manual) Monocytes % (Manual) Seg Neutrophils # Seg Neutrophils # Man Lymphocytes # (Manual) Monocytes # (Manual) D-Dimer Sodium Potassium 3.5 L Chloride Carbon Dioxide Creatinine 0.5 L Glucose 102 H POC Glucose 111 H Calcium 8.3 L Phosphorus 2.30 L Ferritin AST Lactate Dehydrogenase C-Reactive Protein Total Protein Albumin Lipase Vitamin B12 1039 H Coronavirus (PCR) 04/24/21 04/24/21 04/24/21 07:56 07:56 21:37 WBC Hct MCV 95 H MCHC Lymph % (Auto) [place] % (Auto) Lymph # (Auto) [place] # (Auto) Seg Neutrophils % Seg Neuts % (Manual) 80.0 H Lymphocytes % (Manual) 10.0 L Monocytes % (Manual) 10.0 H Seg Neutrophils # Seg Neutrophils # Man Lymphocytes # (Manual) 0.7 L Monocytes # (Manual) D-Dimer Sodium Potassium Chloride Carbon Dioxide Creatinine 0.4 L Glucose POC Glucose 111 H Calcium Phosphorus Ferritin AST Lactate Dehydrogenase C-Reactive Protein Total Protein Albumin Lipase Vitamin B12 Coronavirus (PCR) 04/25/21 04/25/21 04/25/21 06:24 06:24 23:13 WBC Hct 46.6 H MCV MCHC Lymph % (Auto) [place] % (Auto) Lymph # (Auto) [place] # (Auto) Seg Neutrophils % Seg Neuts % (Manual) 83.0 H Lymphocytes % (Manual) 1.0 L Monocytes % (Manual) 9.0 H Seg Neutrophils # Seg Neutrophils # Man Lymphocytes # (Manual) 0.1 L Monocytes # (Manual) D-Dimer Sodium 136 L 134 L Potassium 3.3 L Chloride Carbon Dioxide 21 L Creatinine 0.3 L 0.4 L Glucose 115 H POC Glucose Calcium 7.7 L Phosphorus Ferritin AST 104 H Lactate Dehydrogenase C-Reactive Protein Total Protein 6.1 L Albumin 2.6 L Lipase Vitamin B12 Coronavirus (PCR) 04/26/21 04/27/21 04/27/21 06:29 06:31 06:31 WBC 17.6 H Hct MCV MCHC Lymph % (Auto) [place] % (Auto) Lymph # (Auto) [place] # (Auto) Seg Neutrophils % Seg Neuts % (Manual) 87.0 H Lymphocytes % (Manual) 5.0 L Monocytes % (Manual) Seg Neutrophils # Seg Neutrophils # Man 15.3 H Lymphocytes # (Manual) 0.9 L Monocytes # (Manual) 0.9 H D-Dimer Sodium Potassium 3.4 L Chloride Carbon Dioxide Creatinine 0.5 L 0.4 L Glucose 112 H 106 H POC Glucose Calcium 8.0 L Phosphorus Ferritin AST 114 H 110 H Lactate Dehydrogenase C-Reactive Protein Total Protein 6.2 L Albumin 2.9 L 2.6 L Lipase Vitamin B12 Coronavirus (PCR) 04/28/21 04/28/21 04/29/21 08:03 08:03 04:00 WBC 19.8 H 14.0 H Hct MCV 95 H MCHC Lymph % (Auto) [place] % (Auto) Lymph # (Auto) [place] # (Auto) Seg Neutrophils % Seg Neuts % (Manual) 94.0 H Lymphocytes % (Manual) 1.0 L Monocytes % (Manual) Seg Neutrophils # Seg Neutrophils # Man 18.6 H Lymphocytes # (Manual) 0.2 L Monocytes # (Manual) D-Dimer Sodium Potassium Chloride Carbon Dioxide Creatinine 0.2 L Glucose 107 H POC Glucose Calcium 8.1 L Phosphorus Ferritin AST 87 H Lactate Dehydrogenase C-Reactive Protein Total Protein 5.1 L Albumin 2.4 L Lipase Vitamin B12 Coronavirus (PCR) 04/29/21 04/30/21 04/30/21 04:00 06:20 06:20 WBC Hct MCV MCHC Lymph % (Auto) [place] % (Auto) Lymph # (Auto) [place] # (Auto) Seg Neutrophils % Seg Neuts % (Manual) Lymphocytes % (Manual) Monocytes % (Manual) Seg Neutrophils # Seg Neutrophils # Man Lymphocytes # (Manual) Monocytes # (Manual) D-Dimer 690.97 H Sodium 148 H Potassium 3.0 L Chloride 110.2 H Carbon Dioxide Creatinine 0.2 L Glucose 130 H POC Glucose Calcium Phosphorus Ferritin 930.1 H AST 63 H Lactate Dehydrogenase C-Reactive Protein Total Protein 5.6 L Albumin 2.4 L Lipase Vitamin B12 Coronavirus (PCR) 04/30/21 04/30/21 04/30/21 06:20 08:01 08:41 WBC Hct MCV MCHC Lymph % (Auto) [place] % (Auto) Lymph # (Auto) [place] # (Auto) Seg Neutrophils % Seg Neuts % (Manual) Lymphocytes % (Manual) Monocytes % (Manual) Seg Neutrophils # Seg Neutrophils # Man Lymphocytes # (Manual) Monocytes # (Manual) D-Dimer Sodium 151 H Potassium 3.3 L Chloride 110.3 H Carbon Dioxide Creatinine 0.3 L Glucose 119 H POC Glucose 119 H Calcium Phosphorus Ferritin AST Lactate Dehydrogenase 423 H C-Reactive Protein 8.90 H Total Protein Albumin Lipase Vitamin B12 Coronavirus (PCR) 04/30/21 05/01/21 05/01/21 11:14 07:29 07:29 WBC 21.4 H Hct MCV MCHC Lymph % (Auto) [place] % (Auto) Lymph # (Auto) [place] # (Auto) Seg Neutrophils % Seg Neuts % (Manual) Lymphocytes % (Manual) Monocytes % (Manual) Seg Neutrophils # Seg Neutrophils # Man Lymphocytes # (Manual) Monocytes # (Manual) D-Dimer Sodium 150 H Potassium 2.7 L* Chloride 111.2 H Carbon Dioxide Creatinine 0.3 L Glucose 162 H POC Glucose 113 H Calcium Phosphorus Ferritin AST Lactate Dehydrogenase C-Reactive Protein Total Protein Albumin Lipase Vitamin B12 Coronavirus (PCR) 05/01/21 05/01/21 05/01/21 07:33 11:28 17:54 WBC Hct MCV MCHC Lymph % (Auto) [place] % (Auto) Lymph # (Auto) [place] # (Auto) Seg Neutrophils % Seg Neuts % (Manual) Lymphocytes % (Manual) Monocytes % (Manual) Seg Neutrophils # Seg Neutrophils # Man Lymphocytes # (Manual) Monocytes # (Manual) D-Dimer Sodium Potassium Chloride Carbon Dioxide Creatinine Glucose POC Glucose 147 H 152 H 165 H Calcium Phosphorus Ferritin AST Lactate Dehydrogenase C-Reactive Protein Total Protein Albumin Lipase Vitamin B12 Coronavirus (PCR) 05/02/21 05/02/21 05/02/21 00:23 05:28 05:28 WBC 18.9 H Hct MCV 95 H MCHC 31 L Lymph % (Auto) [place] % (Auto) Lymph # (Auto) [place] # (Auto) Seg Neutrophils % Seg Neuts % (Manual) Lymphocytes % (Manual) Monocytes % (Manual) Seg Neutrophils # Seg Neutrophils # Man Lymphocytes # (Manual) Monocytes # (Manual) D-Dimer Sodium 151 H Potassium Chloride 111.4 H Carbon Dioxide Creatinine 0.3 L Glucose 132 H POC Glucose 160 H Calcium 8.3 L Phosphorus Ferritin AST Lactate Dehydrogenase C-Reactive Protein Total Protein Albumin Lipase Vitamin B12 Coronavirus (PCR) 05/02/21 05/02/21 07:42 11:31 WBC Hct MCV MCHC Lymph % (Auto) [place] % (Auto) Lymph # (Auto) [place] # (Auto) Seg Neutrophils % Seg Neuts % (Manual) Lymphocytes % (Manual) Monocytes % (Manual) Seg Neutrophils # Seg Neutrophils # Man Lymphocytes # (Manual) Monocytes # (Manual) D-Dimer Sodium Potassium Chloride Carbon Dioxide Creatinine Glucose POC Glucose 170 H 131 H Calcium Phosphorus Ferritin AST Lactate Dehydrogenase C-Reactive Protein Total Protein Albumin Lipase Vitamin B12 Coronavirus (PCR) - Diagnostic Findings Chest x-ray: report reviewed CT scan - chest: report reviewed, image reviewed Assessment and Plan - Patient Problems (1) Encephalopathy Current Visit: Yes Status: Acute (2) Altered mental status Current Visit: Yes Status: Acute Qualifiers: Altered mental status type: unspecified Qualified Code(s): R41.82 - Altered mental status, unspecified (3) Bilateral pneumonia Current Visit: Yes Status: Acute Qualifiers: Pneumonia type: due to unspecified organism Lung location: lower lobe of lung Qualified Code(s): J18.9 - Pneumonia, unspecified organism (4) Pneumonia due to 2019 novel coronavirus Current Visit: Yes Status: Acute (5) Acute respiratory disease due to 2019 novel coronavirus Current Visit: Yes Status: Acute
[2021-05-02] MEDS: ENOXAPARIN 40 MG/0.4 ML INJ SUB-Q SCH (12:49)
[2021-05-02] MEDS: FAMOTIDINE 20 MG TAB PO SCH ×2 (12:49→23:36)
[2021-05-02] MEDS: GLYCOPYRROLATE 2 MG TAB PO SCH ×2 (12:49→23:36)
[2021-05-02] MEDS: ALBUTEROL 2.5 MG/3 ML NEBU IH SCH (14:41)
[2021-05-02] MEDS: VALPROIC ACID 250 MG/5 ML ORAL LIQD PO SCH (23:37)
[2021-05-03] MEDS: FREE WATER PO SCH ×4 (00:36→18:30)
[2021-05-03] MEDS ORDERED: DEXTROSE 50% IN WATER (25GM) 50 ML VIAL IV ONE (00:57)
--- NOTE | 2021-05-03 01:47 | XRay Report ---
ABDOMEN 1 VIEW(S) INDICATION / CLINICAL INFORMATION: Confirm Dobhoff placement. COMPARISON: 3 days prior FINDINGS: TUBES / LINES: Dobbhoff tube tip in the distal stomach should be advanced another 10 cm into the duod enum. BOWEL GAS PATTERN: No significant abnormality. FREE AIR / EXTRALUMINAL GAS: None seen. ADDITIONAL FINDINGS: No significant additional findings. IMPRESSION: 1. DHT as above. Signer Name: Aditya Brown MD Signed: 05/03/2021 1:43 AM Workstation Name: [id number]
[2021-05-03] MEDS: ALBUTEROL 2.5 MG/3 ML NEBU IH SCH (05:16)
--- NOTE | 2021-05-03 07:26 | XRay Report ---
. ABDOMEN 1 VIEW(S) INDICATION / CLINICAL INFORMATION: confirm placement of Dobhoff. COMPARISON: Earlier the same date FINDINGS: TUBES / LINES: Dobbhoff tube tip is in the mid to distal stomach and should be advanced at least anot her 5-10 cm into the duodenum. BOWEL GAS PATTERN: No significant abnormality. FREE AIR / EXTRALUMINAL GAS: None seen. ADDITIONAL FINDINGS: No significant additional findings. IMPRESSION: 1. DHT as above. Signer Name: Aditya Brown MD Signed: 05/03/2021 7:21 AM Workstation Name: [id number]
[2021-05-03] MEDS ORDERED: METOPROLOL TARTRATE 5 MG/5 ML INJ IV NR (07:36)
--- NOTE | 2021-05-03 07:37 | Progress Note ---
Assessment and Plan Assessment and plan: #Acute metabolic encephalopathy -CT head negative for acute abnormality -Baseline patient able to perform ADLs -Could be secondary to COVID infection -Neurology consulted, no recommendations at this time -MRI pending Guardian authorization -will continue to monitor #COVID-19 pneumonia #Acute hypoxic respiratory failure #Mucus plugging -currently on supplemental O2, will wean as tolerated -s/p dexamethasone x 10 days & remdesivir -CTA ordered, negative for PE but shows LLL atelectasis likely 2/2 to mucus plugging -ID following, assistance appreciated -continue levaquin, pulmonary toilet and deep suctioning -Pulmonology consulted, assistance appreciated #Leukocytosis -BCx / NGTD -downtrending -likely 2/2 to steroids vs PNA #Aspiration risk -speech therapy evaluation recommended PEG tube placement -GI consult for PEG tube placement, will perform after approval by Guardian #Hypokalemia -will continue to replete monitor #Hypernatremia -250cc q6h free water flushes -will continue to monitor -likely 2/2 to lack of oral intake #Severe protein calorie malnutrition -BMI 20.3; albumin 2.4 -Nutrition consulted -continue tube feeding #Social issues -Patient is a herrera of [facility], contact is Ms. Mattson to discuss clinical up dates/consent for procedures ([phone]) Disposition Plan: Continue medical management History Interval history: Patient continues to be tachycardic. Opens eyes to tactile stimuli. Hospitalist Physical - Physical exam Narrative exam: GENERAL: Well-developed well-nourished. In position in bed, no acute distress. HEENT: Facemask @ 15LPM CHEST/LUNGS: CTAB. HEART/CARDIOVASCULAR: Tachycardic. No murmur, rubs or gallops appreciated. ABDOMEN: +BS. NT/ND. NEURO: Unable to assess. - Constitutional Vitals: Temp Pulse Resp BP Pulse Ox 98.5 F 135 H 20 109/63 92 05/03/21 06:07 05/03/21 06:07 05/03/21 06:07 05/03/21 06:07 05/03/21 06:07 General appearance: Present: no acute distress, cachectic, other (Lying in bed, on side, not cooperating or responding) HEART Score - HEART Score Age: 45-65 Risk factors: 1-2 risk factors - Critical Actions Critical Actions: 0-3 pts:0.9-1.7%risk of adverse cardiac event.Candidate for discharge Results - Labs CBC & Chem 7: 05/03/21 09:20 05/03/21 09:20 Labs: Laboratory Last Values WBC 18.9 K/mm3 (4.5-11.0) H 05/02/21 05:28 RBC 3.95 M/mm3 (3.65-5.03) 05/02/21 05:28 Hgb 11.8 gm/dl (11.8-15.2) 05/02/21 05:28 Hct 37.5 % (35.5-45.6) 05/02/21 05:28 MCV 95 fl (84-94) H 05/02/21 05:28 MCH 30 pg (28-32) 05/02/21 05:28 MCHC 31 % (32-34) L 05/02/21 05:28 RDW 14.9 % (13.2-15.2) 05/02/21 05:28 Plt Count 287 K/mm3 (140-440) 05/02/21 05:28 Lymph % (Auto) 5.9 % (13.4-35.0) L 04/23/21 09:24 [place] % (Auto) Associate Quality Engineer 04/25/21 06:24 Eos % (Auto) 0.0 % (0.0-4.3) 04/23/21 09:24 Baso % (Auto) 0.0 % (0.0-1.8) 04/23/21 09:24 Lymph # (Auto) 0.5 K/mm3 (1.2-5.4) L 04/23/21 09:24 [place] # (Auto) 0.8 K/mm3 (0.0-0.8) 04/23/21 09:24 Eos # (Auto) 0.0 K/mm3 (0.0-0.4) 04/23/21 09:24 Baso # (Auto) 0.0 K/mm3 (0.0-0.1) 04/23/21 09:24 Add Manual Diff Complete 04/28/21 08:03 Total Counted 100 04/28/21 08:03 Seg Neutrophils % Associate Quality Engineer 04/28/21 08:03 Seg Neuts % (Manual) 94.0 % (40.0-70.0) H 04/28/21 08:03 Band Neutrophils % 1.0 % 04/28/21 08:03 Lymphocytes % (Manual) 1.0 % (13.4-35.0) L 04/28/21 08:03 Monocytes % (Manual) 4.0 % (0.0-7.3) 04/28/21 08:03 Myelocytes % 1.0 % 04/25/21 06:24 Nucleated RBC % Not Reportable 04/28/21 08:03 Seg Neutrophils # 7.2 K/mm3 (1.8-7.7) 04/23/21 09:24 Seg Neutrophils # Man 18.6 K/mm3 (1.8-7.7) H 04/28/21 08:03 Band Neutrophils # 0.2 K/mm3 04/28/21 08:03 Lymphocytes # (Manual) 0.2 K/mm3 (1.2-5.4) L 04/28/21 08:03 Abs React Lymphs (Man) 0.0 K/mm3 04/28/21 08:03 Monocytes # (Manual) 0.8 K/mm3 (0.0-0.8) 04/28/21 08:03 Eosinophils # (Manual) 0.0 K/mm3 (0.0-0.4) 04/28/21 08:03 Basophils # (Manual) 0.0 K/mm3 (0.0-0.1) 04/28/21 08:03 Metamyelocytes # 0.0 K/mm3 04/28/21 08:03 Myelocytes # 0.0 K/mm3 04/28/21 08:03 Promyelocytes # 0.0 K/mm3 04/28/21 08:03 Blast Cells # 0.0 K/mm3 04/28/21 08:03 WBC Morphology Not Reportable 04/28/21 08:03 Hypersegmented Neuts Not Reportable 04/28/21 08:03 Hyposegmented Neuts Not Reportable 04/28/21 08:03 Hypogranular Neuts Not Reportable 04/28/21 08:03 Smudge Cells Not Reportable 04/28/21 08:03 Toxic Granulation Not Reportable 04/28/21 08:03 Toxic Vacuolation Not Reportable 04/28/21 08:03 Dohle Bodies Not Reportable 04/28/21 08:03 Pelger-Huet Anomaly Not Reportable 04/28/21 08:03 Jeannette Rods Not Reportable 04/28/21 08:03 Platelet Estimate Consistent w auto 04/28/21 08:03 Clumped Platelets Not Reportable 04/28/21 08:03 Plt Clumps, EDTA Not Reportable 04/28/21 08:03 Large Platelets Not Reportable 04/28/21 08:03 Giant Platelets Not Reportable 04/28/21 08:03 Platelet Satelliting Not Reportable 04/28/21 08:03 Plt Morphology Comment Not Reportable 04/28/21 08:03 RBC Morphology Not Reportable 04/28/21 08:03 Dimorphic RBCs Not Reportable 04/28/21 08:03 Polychromasia Not Reportable 04/28/21 08:03 Hypochromasia Not Reportable 04/28/21 08:03 Poikilocytosis 1+ 04/28/21 08:03 Anisocytosis Not Reportable 04/28/21 08:03 Microcytosis Not Reportable 04/28/21 08:03 Macrocytosis Not Reportable 04/28/21 08:03 Spherocytes Not Reportable 04/28/21 08:03 Pappenheimer Bodies Not Reportable 04/28/21 08:03 Sickle Cells Not Reportable 04/28/21 08:03 Target Cells Not Reportable 04/28/21 08:03 Tear Drop Cells Not Reportable 04/28/21 08:03 Ovalocytes Not Reportable 04/28/21 08:03 Helmet Cells Not Reportable 04/28/21 08:03 William-Collyer Bodies Not Reportable 04/28/21 08:03 [place] Rings Not Reportable 04/28/21 08:03 [place] Cells 1+ 04/28/21 08:03 Bite Cells Not Reportable 04/28/21 08:03 Crenated Cell Not Reportable 04/28/21 08:03 Elliptocytes Not Reportable 04/28/21 08:03 Acanthocytes (Spur) Not Reportable 04/28/21 08:03 Rouleaux Not Reportable 04/28/21 08:03 Hemoglobin C Crystals Not Reportable 04/28/21 08:03 Schistocytes Not Reportable 04/28/21 08:03 Malaria parasites Not Reportable 04/28/21 08:03 Steve Bodies Not Reportable 04/28/21 08:03 Hem Pathologist Commnt No 04/28/21 08:03 APTT 32.0 Sec. (24.2-36.6) 04/21/21 18:02 D-Dimer 690.97 ng/mlDDU (0-234) H 04/30/21 06:20 Sodium 151 mmol/L (137-145) H 05/02/21 05:28 Potassium 4.0 mmol/L (3.6-5.0) 05/02/21 05:28 Chloride 111.4 mmol/L (98-107) H 05/02/21 05:28 Carbon Dioxide 25 mmol/L (22-30) 05/02/21 05:28 Anion Gap 19 mmol/L 05/02/21 05:28 BUN 13 mg/dL (9-20) 05/02/21 05:28 Creatinine 0.3 mg/dL (0.8-1.3) L 05/02/21 05:28 Estimated GFR > 60 ml/min 05/02/21 05:28 BUN/Creatinine Ratio 43 % 05/02/21 05:28 Glucose 132 mg/dL (75-100) H 05/02/21 05:28 POC Glucose 108 mg/dL (70-105) H 05/03/21 06:11 Lactic Acid 1.20 mmol/L (0.7-2.0) 04/21/21 20:26 Calcium 8.3 mg/dL (8.4-10.2) L 05/02/21 05:28 Phosphorus 2.30 mg/dL (2.5-4.5) L 04/23/21 09:24 Magnesium 1.80 mg/dL (1.7-2.3) 04/23/21 09:24 Ferritin 930.1 ng/mL (30.0-300.0) H 04/30/21 06:20 Total Bilirubin 0.70 mg/dL (0.1-1.2) 04/29/21 04:00 AST 63 units/L (5-40) H 04/29/21 04:00 ALT 37 units/L (7-56) 04/29/21 04:00 Alkaline Phosphatase 58 units/L (35-129) 04/29/21 04:00 Lactate Dehydrogenase 423 units/L (91-180) H 04/30/21 06:20 C-Reactive Protein 8.90 mg/dL (0.00-1.30) H 04/30/21 06:20 Total Protein 5.6 g/dL (6.3-8.2) L 04/29/21 04:00 Albumin 2.4 g/dL (3.9-5) L 04/29/21 04:00 Albumin/Globulin Ratio 0.8 % 04/29/21 04:00 Lipase 7 units/L (13-60) L 04/21/21 16:08 Vitamin B12 1039 pg/mL (211-911) H 04/24/21 07:56 Procalcitonin 0.73 ng/mL (<0.15) 04/22/21 00:20 TSH 1.330 mlU/mL (0.270-4.200) 04/24/21 07:56 Free T4 1.03 ng/dL (0.76-1.46) 04/24/21 07:56 Urine Color [place] (Yellow) 04/21/21 Unknown Urine Turbidity Clear (Clear) 04/21/21 Unknown Urine pH 5.0 (5.0-7.0) 04/21/21 Unknown Ur Specific [place] 1.027 (1.003-1.030) 04/21/21 Unknown Urine Protein 100 mg/dl mg/dL (Negative) 04/21/21 Unknown Urine Glucose (UA) Neg mg/dL (Negative) 04/21/21 Unknown Urine Ketones 20 mg/dL (Negative) 04/21/21 Unknown Urine Blood Mod (Negative) 04/21/21 Unknown Urine Nitrite Neg (Negative) 04/21/21 Unknown Urine Bilirubin Neg (Negative) 04/21/21 Unknown Urine Urobilinogen 4.0 mg/dL (<2.0) 04/21/21 Unknown Ur Leukocyte Esterase Neg (Negative) 04/21/21 Unknown Urine WBC (Auto) < 1.0 /HPF (0.0-6.0) 04/21/21 Unknown Urine RBC (Auto) < 1.0 /HPF (0.0-6.0) 04/21/21 Unknown Urine Mucus Few /HPF 04/21/21 Unknown Coronavirus (PCR) Positive (Negative) A 04/22/21 Unknown Microbiology: Microbiology 04/28/21 16:53 Peripheral/Venous Blood Culture - Preliminary NO GROWTH AFTER 4 DAYS 04/28/21 15:47 Peripheral/Venous Blood Culture - Preliminary NO GROWTH AFTER 4 DAYS [place]/IV: Voiding Method Condom Catheter Active Medications - Current Medications Current Medications: Generic Name Dose Route Start Last Admin Trade Name Freq PRN Reason Stop Dose Admin Acetaminophen 650 mg 04/21/21 22:31 04/23/21 12:43 Acetaminophen 325 Mg Tab PO 650 mg Q4H PRN Administration Pain MILD(1-3)/Fever >100.5/RAY Albuterol 2.5 mg 05/02/21 14:00 05/03/21 05:16 Albuterol 2.5 Mg/3 Ml Nebu IH Not Given Q6HRT EDDIE Enoxaparin Sodium 40 mg 04/22/21 10:00 05/02/21 12:49 Enoxaparin 40 Mg/0.4 Ml Inj SUB-Q 40 mg QDAY EDDIE Administration Famotidine 20 mg 04/22/21 10:00 05/02/21 23:36 Famotidine 20 Mg Tab PO Not Given BID EDDIE Glycopyrrolate 2 mg 05/01/21 14:00 05/02/21 23:36 Glycopyrrolate 2 Mg Tab PO Not Given BID EDDIE Guaifenesin 200 mg 04/24/21 08:28 04/25/21 10:23 Guaifenesin 100 Mg/5 Ml Oral Liqd PO 200 mg Q4H PRN Administration Cough Dextrose 1,000 mls @ 75 mls/hr 04/30/21 22:00 04/30/21 22:09 D5w IV 75 mls/hr DIRECT EDDIE Administration Levofloxacin/Dextrose 500 mg in 100 mls @ 100 mls/hr 05/02/21 13:00 05/02/21 13:50 Levaquin 500mg/100ml IV 100 mls/hr Q24H EDDIE Administration Protocol Metoclopramide HCl 10 mg 04/21/21 22:31 Metoclopramide 10 Mg/2 Ml Inj IV Q6H PRN Nausea And Vomiting Metoprolol Tartrate 5 mg 05/03/21 07:36 Metoprolol Tartrate 5 Mg/5 Ml Inj IV 05/03/21 07:37 ONCE ONE Ondansetron HCl 4 mg 12/28/21 22:31 Ondansetron 4 Mg/2 Ml Inj IV Q8H PRN Nausea And Vomiting Oxycodone/Acetaminophen 1 tab 04/21/21 22:31 04/22/21 22:35 Oxycodone /Acetaminophen 5-325mg Tab PO 1 tab Q6H PRN Administration Pain, Moderate (4-6) Sodium Chloride 10 ml 04/22/21 10:00 05/02/21 23:36 Sodium Chloride 0.9% 10 Ml Flush Syringe IV 10 ml BID EDDIE Administration Sodium Chloride 10 ml 04/21/21 22:31 Sodium Chloride 0.9% 10 Ml Flush Syringe IV PRN PRN LINE FLUSH Valproic Acid 250 mg 05/01/21 22:00 05/02/21 23:37 Valproic Acid 250 Mg/5 Ml Oral Liqd PO Not Given QHS [facility] Nutrition/Malnutrition Assess - Dietary Evaluation Nutrition/Malnutrition Findings: Nutrition Notes Start: 04/22/21 18:07 Freq: Status: Active Protocol: Document 04/30/21 09:54 RICKY (Rec: 04/30/21 10:05 [email or web address] [id number]) Nutrition Notes Initial or Follow up Reassessment Current Diagnosis Respiratory Failure, Malnutrition Other Pertinent Diagnosis COVID-19, Pneumonia, Ac Encephalopathy, Leukocytosis, Hypokalemia. Current Diet NPO (since 04/26 11:10), TF- Jevity 1.2 Louie @ 56 ml/hr ( since B 05/01). Labs/Tests 04/30: Na 151, K 3.3, Cl 110.3 , Crea 0.3, Glu 119, Ferritin 930.1, LacDH 423, C-RP 8.9, Tpro 5.6, Alb 2.4. Pertinent Medications 04/30: Nutritionally unremarkable. Height 6 ft Weight 67.5 kg [place] Body Weight (kg) 80.90 BMI 20.2 Weight change and time frame 0.3 Kg body weight loss in 3 days reported. Weight Status Appropriate Subjective/Other Information RD consult for routine F/U on SLUSHER OPERATOR evaluation. MD request write/manage TF. Pt did not cooperate with SLUSHER OPERATOR and was not evaluated. SLUSHER OPERATOR recommends PEG tube placement. PT does not eat, but seems to have no swallowing problems. Pt appears to have "some sort of chronic underlying mental development process", according to MD. Pt is [place], PEG tube placement needs to be authorized by Guardian. Percent of energy/protein needs met: Pt currently on NPO. Prescribed Jevity 1.2 Louie @ 56 ml/hr provides for energy/ protein needs (1,600 Kcal/74 g ) during LOS, 100% Kcal; 90% AA. Burn Absent Trauma Absent GI Symptoms None Food Allergy No Skin Integrity/Comment Clear, warm, dry. Current % PO Negligible #1 Nutrition Diagnosis Inadequate protein-energy intake As Evidenced by Signs and Symptoms MD request for write/manage TF . Diagnosis Progress(for reassessment Worsened documentation) Is patient on ventilator? No Is Patient Ambulatory and/or Out of Bed No REE-([facility]-confined to bed) 1808.940 Kcal/Kg value to use for calculation 24 Approximate Energy Requirements Using 1620 kcal/Kg Calculation Used for Recommendations Kcal/kg Additional Notes Protein: 1.2-1.5 g/Kg; 82-102 g/day. Fluids: 1 ml/Kcal, or as per MD. Nutrition Intervention Change Diet Order: Continue NPO as per MD. Nutrition Support: Start Jevity 1.2 Louie @ 56 ml/ hr. Flush: 90 ml water Q 4 hr. Kcal 1,600 Protein (gm) 74 Carbohydrates (gm) 226 Fat (gm) 52 Fluid (mL) 1,076 Fiber (gm) 24 % RDI: 100% Kcal; 90% AA. Goal #1 Provide at least 75% of energy /protein needs through Enteral Feeding during LOS. Follow-Up By: 05/04/21 Additional Comments Continue monitoring TF tolerance and BM. Wait for MD decision regarding PEG tube placement.
[2021-05-03] MEDS ORDERED: LACTATED RINGERS 1,000 ML IV SCH (07:45)
--- NOTE | 2021-05-03 09:23 | Progress Note ---
Assessment and Plan - Patient Problems (1) Encephalopathy Current Visit: Yes Status: Acute (2) Altered mental status Current Visit: Yes Status: Acute Qualifiers: Altered mental status type: unspecified Qualified Code(s): R41.82 - Altered mental status, unspecified (3) Bilateral pneumonia Current Visit: Yes Status: Acute Qualifiers: Pneumonia type: due to unspecified organism Lung location: lower lobe of lung Qualified Code(s): J18.9 - Pneumonia, unspecified organism (4) Pneumonia due to 2019 novel coronavirus Current Visit: Yes Status: Acute (5) Acute respiratory disease due to 2019 novel coronavirus Current Visit: Yes Status: Acute Subjective Interval history: less congested Objective Vital Signs - 12hr 05/02/21 05/02/21 05/03/21 22:46 22:47 00:00 Temperature 98.1 F 98.1 F Pulse Rate 122 H 121 H Respiratory 20 20 28 H Rate Blood Pressure 104/57 O2 Sat by Pulse 86 92 95 Oximetry 05/03/21 05/03/21 06:07 08:02 Temperature 98.5 F Pulse Rate 135 H 135 H Respiratory 20 Rate Blood Pressure 109/63 O2 Sat by Pulse 92 Oximetry Constitutional: other (on nrb mask sat 100%, opens eyes to tactile stimuli, doesnt follow command ) ENT: oropharynx moist, oropharynx dry Ascultation: Bilateral: rhonchi (sl better) Cardiovascular: regular rate and rhythm, PVC's noted Gastrointestinal: normoactive bowel sounds, non-distended CBC and BMP: 05/03/21 09:20 05/03/21 09:20 ABG, PT/INR, D-dimer: PT/INR, D-dimer D-Dimer 690.97 ng/mlDDU (0-234) H 04/30/21 06:20 Abnormal lab findings: Abnormal Labs 04/21/21 04/21/21 04/22/21 16:08 16:08 00:20 WBC Hct MCV 96 H MCHC Lymph % (Auto) 8.5 L [place] % (Auto) 15.8 H Lymph # (Auto) 0.9 L [place] # (Auto) 1.7 H Seg Neutrophils % 75.6 H Seg Neuts % (Manual) Lymphocytes % (Manual) Monocytes % (Manual) Seg Neutrophils # 8.0 H Seg Neutrophils # Man Lymphocytes # (Manual) Monocytes # (Manual) D-Dimer 621.94 H Sodium Potassium Chloride Carbon Dioxide Creatinine 0.6 L Glucose 107 H POC Glucose Calcium 8.3 L Phosphorus Ferritin AST 136 H Lactate Dehydrogenase C-Reactive Protein Total Protein 6.2 L Albumin 3.0 L Lipase 7 L Vitamin B12 Coronavirus (PCR) 04/22/21 04/22/21 04/22/21 00:20 00:20 06:51 WBC Hct MCV 95 H MCHC Lymph % (Auto) [place] % (Auto) Lymph # (Auto) [place] # (Auto) Seg Neutrophils % Seg Neuts % (Manual) 91.0 H Lymphocytes % (Manual) 1.0 L Monocytes % (Manual) Seg Neutrophils # Seg Neutrophils # Man Lymphocytes # (Manual) 0.1 L Monocytes # (Manual) D-Dimer Sodium Potassium Chloride Carbon Dioxide Creatinine Glucose POC Glucose Calcium Phosphorus Ferritin 427.3 H AST Lactate Dehydrogenase 379 H C-Reactive Protein 9.20 H Total Protein Albumin Lipase Vitamin B12 Coronavirus (PCR) 04/22/21 04/22/21 04/23/21 06:51 Unknown 09:24 WBC Hct MCV 96 H MCHC Lymph % (Auto) 5.9 L [place] % (Auto) 9.3 H Lymph # (Auto) 0.5 L [place] # (Auto) Seg Neutrophils % 84.8 H Seg Neuts % (Manual) Lymphocytes % (Manual) Monocytes % (Manual) Seg Neutrophils # Seg Neutrophils # Man Lymphocytes # (Manual) Monocytes # (Manual) D-Dimer Sodium Potassium Chloride Carbon Dioxide Creatinine 0.4 L Glucose 114 H POC Glucose Calcium 8.0 L Phosphorus Ferritin AST 116 H Lactate Dehydrogenase C-Reactive Protein Total Protein 5.9 L Albumin 3.0 L Lipase Vitamin B12 Coronavirus (PCR) Positive A 04/23/21 04/23/21 04/24/21 09:24 22:38 07:56 WBC Hct MCV MCHC Lymph % (Auto) [place] % (Auto) Lymph # (Auto) [place] # (Auto) Seg Neutrophils % Seg Neuts % (Manual) Lymphocytes % (Manual) Monocytes % (Manual) Seg Neutrophils # Seg Neutrophils # Man Lymphocytes # (Manual) Monocytes # (Manual) D-Dimer Sodium Potassium 3.5 L Chloride Carbon Dioxide Creatinine 0.5 L Glucose 102 H POC Glucose 111 H Calcium 8.3 L Phosphorus 2.30 L Ferritin AST Lactate Dehydrogenase C-Reactive Protein Total Protein Albumin Lipase Vitamin B12 1039 H Coronavirus (PCR) 04/24/21 04/24/21 04/24/21 07:56 07:56 21:37 WBC Hct MCV 95 H MCHC Lymph % (Auto) [place] % (Auto) Lymph # (Auto) [place] # (Auto) Seg Neutrophils % Seg Neuts % (Manual) 80.0 H Lymphocytes % (Manual) 10.0 L Monocytes % (Manual) 10.0 H Seg Neutrophils # Seg Neutrophils # Man Lymphocytes # (Manual) 0.7 L Monocytes # (Manual) D-Dimer Sodium Potassium Chloride Carbon Dioxide Creatinine 0.4 L Glucose POC Glucose 111 H Calcium Phosphorus Ferritin AST Lactate Dehydrogenase C-Reactive Protein Total Protein Albumin Lipase Vitamin B12 Coronavirus (PCR) 04/25/21 04/25/21 04/25/21 06:24 06:24 23:13 WBC Hct 46.6 H MCV MCHC Lymph % (Auto) [place] % (Auto) Lymph # (Auto) [place] # (Auto) Seg Neutrophils % Seg Neuts % (Manual) 83.0 H Lymphocytes % (Manual) 1.0 L Monocytes % (Manual) 9.0 H Seg Neutrophils # Seg Neutrophils # Man Lymphocytes # (Manual) 0.1 L Monocytes # (Manual) D-Dimer Sodium 136 L 134 L Potassium 3.3 L Chloride Carbon Dioxide 21 L Creatinine 0.3 L 0.4 L Glucose 115 H POC Glucose Calcium 7.7 L Phosphorus Ferritin AST 104 H Lactate Dehydrogenase C-Reactive Protein Total Protein 6.1 L Albumin 2.6 L Lipase Vitamin B12 Coronavirus (PCR) 04/26/21 04/27/21 04/27/21 06:29 06:31 06:31 WBC 17.6 H Hct MCV MCHC Lymph % (Auto) [place] % (Auto) Lymph # (Auto) [place] # (Auto) Seg Neutrophils % Seg Neuts % (Manual) 87.0 H Lymphocytes % (Manual) 5.0 L Monocytes % (Manual) Seg Neutrophils # Seg Neutrophils # Man 15.3 H Lymphocytes # (Manual) 0.9 L Monocytes # (Manual) 0.9 H D-Dimer Sodium Potassium 3.4 L Chloride Carbon Dioxide Creatinine 0.5 L 0.4 L Glucose 112 H 106 H POC Glucose Calcium 8.0 L Phosphorus Ferritin AST 114 H 110 H Lactate Dehydrogenase C-Reactive Protein Total Protein 6.2 L Albumin 2.9 L 2.6 L Lipase Vitamin B12 Coronavirus (PCR) 04/28/21 04/28/21 04/29/21 08:03 08:03 04:00 WBC 19.8 H 14.0 H Hct MCV 95 H MCHC Lymph % (Auto) [place] % (Auto) Lymph # (Auto) [place] # (Auto) Seg Neutrophils % Seg Neuts % (Manual) 94.0 H Lymphocytes % (Manual) 1.0 L Monocytes % (Manual) Seg Neutrophils # Seg Neutrophils # Man 18.6 H Lymphocytes # (Manual) 0.2 L Monocytes # (Manual) D-Dimer Sodium Potassium Chloride Carbon Dioxide Creatinine 0.2 L Glucose 107 H POC Glucose Calcium 8.1 L Phosphorus Ferritin AST 87 H Lactate Dehydrogenase C-Reactive Protein Total Protein 5.1 L Albumin 2.4 L Lipase Vitamin B12 Coronavirus (PCR) 04/29/21 04/30/21 04/30/21 04:00 06:20 06:20 WBC Hct MCV MCHC Lymph % (Auto) [place] % (Auto) Lymph # (Auto) [place] # (Auto) Seg Neutrophils % Seg Neuts % (Manual) Lymphocytes % (Manual) Monocytes % (Manual) Seg Neutrophils # Seg Neutrophils # Man Lymphocytes # (Manual) Monocytes # (Manual) D-Dimer 690.97 H Sodium 148 H Potassium 3.0 L Chloride 110.2 H Carbon Dioxide Creatinine 0.2 L Glucose 130 H POC Glucose Calcium Phosphorus Ferritin 930.1 H AST 63 H Lactate Dehydrogenase C-Reactive Protein Total Protein 5.6 L Albumin 2.4 L Lipase Vitamin B12 Coronavirus (PCR) 04/30/21 04/30/21 04/30/21 06:20 08:01 08:41 WBC Hct MCV MCHC Lymph % (Auto) [place] % (Auto) Lymph # (Auto) [place] # (Auto) Seg Neutrophils % Seg Neuts % (Manual) Lymphocytes % (Manual) Monocytes % (Manual) Seg Neutrophils # Seg Neutrophils # Man Lymphocytes # (Manual) Monocytes # (Manual) D-Dimer Sodium 151 H Potassium 3.3 L Chloride 110.3 H Carbon Dioxide Creatinine 0.3 L Glucose 119 H POC Glucose 119 H Calcium Phosphorus Ferritin AST Lactate Dehydrogenase 423 H C-Reactive Protein 8.90 H Total Protein Albumin Lipase Vitamin B12 Coronavirus (PCR) 04/30/21 05/01/21 05/01/21 11:14 07:29 07:29 WBC 21.4 H Hct MCV MCHC Lymph % (Auto) [place] % (Auto) Lymph # (Auto) [place] # (Auto) Seg Neutrophils % Seg Neuts % (Manual) Lymphocytes % (Manual) Monocytes % (Manual) Seg Neutrophils # Seg Neutrophils # Man Lymphocytes # (Manual) Monocytes # (Manual) D-Dimer Sodium 150 H Potassium 2.7 L* Chloride 111.2 H Carbon Dioxide Creatinine 0.3 L Glucose 162 H POC Glucose 113 H Calcium Phosphorus Ferritin AST Lactate Dehydrogenase C-Reactive Protein Total Protein Albumin Lipase Vitamin B12 Coronavirus (PCR) 05/01/21 05/01/21 05/01/21 07:33 11:28 17:54 WBC Hct MCV MCHC Lymph % (Auto) [place] % (Auto) Lymph # (Auto) [place] # (Auto) Seg Neutrophils % Seg Neuts % (Manual) Lymphocytes % (Manual) Monocytes % (Manual) Seg Neutrophils # Seg Neutrophils # Man Lymphocytes # (Manual) Monocytes # (Manual) D-Dimer Sodium Potassium Chloride Carbon Dioxide Creatinine Glucose POC Glucose 147 H 152 H 165 H Calcium Phosphorus Ferritin AST Lactate Dehydrogenase C-Reactive Protein Total Protein Albumin Lipase Vitamin B12 Coronavirus (PCR) 05/02/21 05/02/21 05/02/21 00:23 05:28 05:28 WBC 18.9 H Hct MCV 95 H MCHC 31 L Lymph % (Auto) [place] % (Auto) Lymph # (Auto) [place] # (Auto) Seg Neutrophils % Seg Neuts % (Manual) Lymphocytes % (Manual) Monocytes % (Manual) Seg Neutrophils # Seg Neutrophils # Man Lymphocytes # (Manual) Monocytes # (Manual) D-Dimer Sodium 151 H Potassium Chloride 111.4 H Carbon Dioxide Creatinine 0.3 L Glucose 132 H POC Glucose 160 H Calcium 8.3 L Phosphorus Ferritin AST Lactate Dehydrogenase C-Reactive Protein Total Protein Albumin Lipase Vitamin B12 Coronavirus (PCR) 05/02/21 05/02/21 05/02/21 07:42 11:31 16:39 WBC Hct MCV MCHC Lymph % (Auto) [place] % (Auto) Lymph # (Auto) [place] # (Auto) Seg Neutrophils % Seg Neuts % (Manual) Lymphocytes % (Manual) Monocytes % (Manual) Seg Neutrophils # Seg Neutrophils # Man Lymphocytes # (Manual) Monocytes # (Manual) D-Dimer Sodium Potassium Chloride Carbon Dioxide Creatinine Glucose POC Glucose 170 H 131 H 140 H Calcium Phosphorus Ferritin AST Lactate Dehydrogenase C-Reactive Protein Total Protein Albumin Lipase Vitamin B12 Coronavirus (PCR) 01/08/22 01/09/22 22:42 06:11 WBC Hct MCV MCHC Lymph % (Auto) [place] % (Auto) Lymph # (Auto) [place] # (Auto) Seg Neutrophils % Seg Neuts % (Manual) Lymphocytes % (Manual) Monocytes % (Manual) Seg Neutrophils # Seg Neutrophils # Man Lymphocytes # (Manual) Monocytes # (Manual) D-Dimer Sodium Potassium Chloride Carbon Dioxide Creatinine Glucose POC Glucose 107 H 108 H Calcium Phosphorus Ferritin AST Lactate Dehydrogenase C-Reactive Protein Total Protein Albumin Lipase Vitamin B12 Coronavirus (PCR)
[2021-05-03 09:53] LABS: Hematocrit 33.1 % (35.5-45.6); Hemoglobin 10.5 gm/dl (11.8-15.2); Mean Corpuscular HGB Conc 32 % (32-34); Mean Corpuscular Volume 94 fl (84-94); Platelet Count 203 K/mm3 (140-440); Red Blood Count 3.51 M/mm3 (3.65-5.03); Red Cell Distribution Width 15.4 % (13.2-15.2)
[2021-05-03 10:16] LABS: Blood Urea Nitrogen 16 mg/dL (9-20); Hemolysis Index 2
[2021-05-03 10:22] LABS: BUN/Creatinine Ratio 53
[2021-05-03] MEDS: ENOXAPARIN 40 MG/0.4 ML INJ SUB-Q SCH (10:47)
[2021-05-03] MEDS: FAMOTIDINE 20 MG TAB PO SCH ×2 (10:47→21:17)
[2021-05-03] MEDS: GLYCOPYRROLATE 2 MG TAB PO SCH ×2 (10:47→21:16)
--- NOTE | 2021-05-03 16:27 | Gastroenterology Progress Note ---
Assessment and Plan GI: pt for peg when stable - no changes at this time - please call when pt stable and peg still needed Subjective Date of service: 05/03/21 Interval history: - no GI issues overnight Objective - Constitutional Vitals: Temp Pulse Resp BP Pulse Ox 99.0 F 67 24 96/57 100 05/03/21 12:56 05/03/21 12:56 05/03/21 12:56 05/03/21 12:56 05/03/21 12:56 General appearance: no acute distress - EENT Eyes: PERRL - Respiratory Respiratory: bilateral: rhonchi - Cardiovascular Rhythm: regular Heart Sounds: Present: S1 & S2 - Gastrointestinal General gastrointestinal: Present: soft, non-tender, non-distended - Labs CBC & Chem 7: 05/03/21 09:20 05/03/21 09:20 Labs: Laboratory Results - last 24 hr 05/02/21 05/02/21 05/03/21 16:39 22:42 06:11 WBC RBC Hgb Hct MCV MCH MCHC RDW Plt Count Sodium Potassium Chloride Carbon Dioxide Anion Gap BUN Creatinine Estimated GFR BUN/Creatinine Ratio Glucose POC Glucose 140 H 107 H 108 H Calcium 05/03/21 05/03/21 05/03/21 09:20 09:20 11:01 WBC 16.2 H RBC 3.51 L Hgb 10.5 L Hct 33.1 L MCV 94 MCH 30 MCHC 32 RDW 15.4 H Plt Count 203 Sodium 149 H Potassium 3.5 L Chloride 110.0 H Carbon Dioxide 27 Anion Gap 16 BUN 16 Creatinine 0.3 L Estimated GFR > 60 BUN/Creatinine Ratio 53 Glucose 113 H POC Glucose 146 H Calcium 8.0 L
[2021-05-03] MEDS: METOPROLOL TARTRATE 25 MG TAB PO SCH ×2 (17:35→21:17)
[2021-05-03] MEDS: guaiFENesin 100 MG/5 ML ORAL LIQD PO PRN (21:16)
[2021-05-03] MEDS: VALPROIC ACID 250 MG/5 ML ORAL LIQD PO SCH (21:16)
[2021-05-04] MEDS: FREE WATER PO SCH ×3 (00:20→12:45)
[2021-05-04] MEDS: ALBUTEROL 2.5 MG/3 ML NEBU IH SCH ×7 (01:23→20:16)
[2021-05-04] MEDS: guaiFENesin 100 MG/5 ML ORAL LIQD PO PRN (04:48)
--- NOTE | 2021-05-04 08:40 | Progress Note ---
Assessment and Plan Assessment and plan: --Acute metabolic encephalopathy -CT head negative for acute abnormality -Baseline patient able to perform ADLs -Could be secondary to COVID infection -Neurology consulted, no recommendations at this time -MRI pending Guardian authorization -will continue to monitor --COVID-19 pneumonia; Continue empiric antibiotics, assessed more than 90% Home O2 evaluation prior to discharge Follow cultures, home O2 evaluation --Acute hypoxic respiratory failure Probably due to mucus plugging, COVID-19 pneumonia -currently on supplemental O2, will wean as tolerated -s/p dexamethasone x 10 days & remdesivir 5 days -CTA ordered, negative for PE but shows LLL atelectasis likely 2/2 to mucus plugging -ID following, assistance appreciated -continue levaquin, pulmonary toilet and deep suctioning -Pulmonology consulted, assistance appreciated --Leukocytosis Probably secondary to steroids and underlying disease process Treat the underlying cause, titrate Solu-Medrol dose decreased --Aspiration precautions Speech therapy evaluation recommended PEG tube placement GI consult for PEG tube placement, will perform after approval by Guardian --Hypokalemia Closely monitor electrolytes Check magnesium --Hypernatremia 250cc q6h free water flushes will continue to monitor likely 2/2 to lack of oral intake --Severe protein calorie malnutrition BMI 20.3; albumin 2.4 Nutrition consulted continue tube feeding Considering PEG tube placement per GI --Social issues Patient is a herrera of [facility], contact is Ms. Mattson to discuss clinical updates/consent for procedures ([phone]) We will closely monitor the patient and adjust management as needed Plan of care reviewed with the patient and his nurse Disposition Plan: Continue medical management Patient needs PEG placement, CM to assist with obtaining consent from the [facility] for PEG History Interval history: Seen and examined the patient at the bedside Isolation precautions and PPE protocol strictly followed Patient with COVID-19 on 15 L nasal cannula oxygen 100% nonrebreather Patient has dysphagia, GI planning PEG placement Awaiting consent from the [facility] for the procedure Patient has no new complaints Hospitalist Physical - Constitutional Vitals: Temp Pulse Resp BP Pulse Ox 99.7 F H 122 H 18 104/59 99 05/04/21 05:50 05/04/21 05:50 05/04/21 05:50 05/04/21 05:50 05/04/21 05:50 General appearance: Present: no acute distress, cachectic, other (Lying in bed, on side, not cooperating or responding) - EENT Eyes: Present: PERRL, EOM intact - Neck Neck: Present: supple, normal ROM - Respiratory Respiratory effort: normal Respiratory: bilateral: diminished, rhonchi, negative: rales, wheezing - Cardiovascular Rhythm: regular Heart Sounds: Present: S1 & S2 - Extremities Extremities: no ischemia, No edema - Abdominal General gastrointestinal: soft, non-tender, non-distended, normal bowel sounds - Integumentary Integumentary: Present: clear, warm - Psychiatric Psychiatric: appropriate mood/affect, cooperative - Neurologic Neurologic: CNII-XII intact, moves all extremities HEART Score - HEART Score Age: 45-65 Risk factors: 1-2 risk factors - Critical Actions Critical Actions: 0-3 pts:0.9-1.7%risk of adverse cardiac event.Candidate for discharge Results - Labs CBC & Chem 7: 05/03/21 09:20 05/03/21 09:20 Labs: Laboratory Last Values WBC 16.2 K/mm3 (4.5-11.0) H 05/03/21 09:20 RBC 3.51 M/mm3 (3.65-5.03) L 05/03/21 09:20 Hgb 10.5 gm/dl (11.8-15.2) L 05/03/21 09:20 Hct 33.1 % (35.5-45.6) L 05/03/21 09:20 MCV 94 fl (84-94) 05/03/21 09:20 MCH 30 pg (28-32) 05/03/21 09:20 MCHC 32 % (32-34) 05/03/21 09:20 RDW 15.4 % (13.2-15.2) H 05/03/21 09:20 Plt Count 203 K/mm3 (140-440) 05/03/21 09:20 Lymph % (Auto) 5.9 % (13.4-35.0) L 04/23/21 09:24 [place] % (Auto) Scrap Crane Operator 04/25/21 06:24 Eos % (Auto) 0.0 % (0.0-4.3) 04/23/21 09:24 Baso % (Auto) 0.0 % (0.0-1.8) 04/23/21 09:24 Lymph # (Auto) 0.5 K/mm3 (1.2-5.4) L 04/23/21 09:24 [place] # (Auto) 0.8 K/mm3 (0.0-0.8) 04/23/21 09:24 Eos # (Auto) 0.0 K/mm3 (0.0-0.4) 04/23/21 09:24 Baso # (Auto) 0.0 K/mm3 (0.0-0.1) 04/23/21 09:24 Add Manual Diff Complete 04/28/21 08:03 Total Counted 100 04/28/21 08:03 Seg Neutrophils % Scrap Crane Operator 04/28/21 08:03 Seg Neuts % (Manual) 94.0 % (40.0-70.0) H 04/28/21 08:03 Band Neutrophils % 1.0 % 04/28/21 08:03 Lymphocytes % (Manual) 1.0 % (13.4-35.0) L 04/28/21 08:03 Monocytes % (Manual) 4.0 % (0.0-7.3) 04/28/21 08:03 Myelocytes % 1.0 % 04/25/21 06:24 Nucleated RBC % Not Reportable 04/28/21 08:03 Seg Neutrophils # 7.2 K/mm3 (1.8-7.7) 04/23/21 09:24 Seg Neutrophils # Man 18.6 K/mm3 (1.8-7.7) H 04/28/21 08:03 Band Neutrophils # 0.2 K/mm3 04/28/21 08:03 Lymphocytes # (Manual) 0.2 K/mm3 (1.2-5.4) L 04/28/21 08:03 Abs React Lymphs (Man) 0.0 K/mm3 04/28/21 08:03 Monocytes # (Manual) 0.8 K/mm3 (0.0-0.8) 04/28/21 08:03 Eosinophils # (Manual) 0.0 K/mm3 (0.0-0.4) 04/28/21 08:03 Basophils # (Manual) 0.0 K/mm3 (0.0-0.1) 04/28/21 08:03 Metamyelocytes # 0.0 K/mm3 04/28/21 08:03 Myelocytes # 0.0 K/mm3 04/28/21 08:03 Promyelocytes # 0.0 K/mm3 04/28/21 08:03 Blast Cells # 0.0 K/mm3 04/28/21 08:03 WBC Morphology Not Reportable 04/28/21 08:03 Hypersegmented Neuts Not Reportable 04/28/21 08:03 Hyposegmented Neuts Not Reportable 04/28/21 08:03 Hypogranular Neuts Not Reportable 04/28/21 08:03 Smudge Cells Not Reportable 04/28/21 08:03 Toxic Granulation Not Reportable 04/28/21 08:03 Toxic Vacuolation Not Reportable 04/28/21 08:03 Dohle Bodies Not Reportable 04/28/21 08:03 Pelger-Huet Anomaly Not Reportable 04/28/21 08:03 Jeannette Rods Not Reportable 04/28/21 08:03 Platelet Estimate Consistent w auto 04/28/21 08:03 Clumped Platelets Not Reportable 04/28/21 08:03 Plt Clumps, EDTA Not Reportable 04/28/21 08:03 Large Platelets Not Reportable 04/28/21 08:03 Giant Platelets Not Reportable 04/28/21 08:03 Platelet Satelliting Not Reportable 04/28/21 08:03 Plt Morphology Comment Not Reportable 04/28/21 08:03 RBC Morphology Not Reportable 04/28/21 08:03 Dimorphic RBCs Not Reportable 04/28/21 08:03 Polychromasia Not Reportable 04/28/21 08:03 Hypochromasia Not Reportable 04/28/21 08:03 Poikilocytosis 1+ 04/28/21 08:03 Anisocytosis Not Reportable 04/28/21 08:03 Microcytosis Not Reportable 04/28/21 08:03 Macrocytosis Not Reportable 04/28/21 08:03 Spherocytes Not Reportable 04/28/21 08:03 Pappenheimer Bodies Not Reportable 04/28/21 08:03 Sickle Cells Not Reportable 04/28/21 08:03 Target Cells Not Reportable 04/28/21 08:03 Tear Drop Cells Not Reportable 04/28/21 08:03 Ovalocytes Not Reportable 04/28/21 08:03 Helmet Cells Not Reportable 04/28/21 08:03 [place] Bodies Not Reportable 04/28/21 08:03 [place] Rings Not Reportable 04/28/21 08:03 Canelo Cells 1+ 04/28/21 08:03 Bite Cells Not Reportable 04/28/21 08:03 Crenated Cell Not Reportable 04/28/21 08:03 Elliptocytes Not Reportable 04/28/21 08:03 Acanthocytes (Spur) Not Reportable 04/28/21 08:03 Rouleaux Not Reportable 04/28/21 08:03 Hemoglobin C Crystals Not Reportable 04/28/21 08:03 Schistocytes Not Reportable 04/28/21 08:03 Malaria parasites Not Reportable 04/28/21 08:03 Steve Bodies Not Reportable 04/28/21 08:03 Hem Pathologist Commnt No 04/28/21 08:03 APTT 32.0 Sec. (24.2-36.6) 04/21/21 18:02 D-Dimer 690.97 ng/mlDDU (0-234) H 04/30/21 06:20 Sodium 149 mmol/L (137-145) H 05/03/21 09:20 Potassium 3.5 mmol/L (3.6-5.0) L 05/03/21 09:20 Chloride 110.0 mmol/L (98-107) H 05/03/21 09:20 Carbon Dioxide 27 mmol/L (22-30) 05/03/21 09:20 Anion Gap 16 mmol/L 05/03/21 09:20 BUN 16 mg/dL (9-20) 05/03/21 09:20 Creatinine 0.3 mg/dL (0.8-1.3) L 05/03/21 09:20 Estimated GFR > 60 ml/min 05/03/21 09:20 BUN/Creatinine Ratio 53 % 05/03/21 09:20 Glucose 113 mg/dL (75-100) H 05/03/21 09:20 POC Glucose 143 mg/dL (70-105) H 05/04/21 05:51 Lactic Acid 1.20 mmol/L (0.7-2.0) 04/21/21 20:26 Calcium 8.0 mg/dL (8.4-10.2) L 05/03/21 09:20 Phosphorus 2.30 mg/dL (2.5-4.5) L 04/23/21 09:24 Magnesium 1.80 mg/dL (1.7-2.3) 04/23/21 09:24 Ferritin 930.1 ng/mL (30.0-300.0) H 04/30/21 06:20 Total Bilirubin 0.70 mg/dL (0.1-1.2) 04/29/21 04:00 AST 63 units/L (5-40) H 04/29/21 04:00 ALT 37 units/L (7-56) 04/29/21 04:00 Alkaline Phosphatase 58 units/L (35-129) 04/29/21 04:00 Lactate Dehydrogenase 423 units/L (91-180) H 04/30/21 06:20 C-Reactive Protein 8.90 mg/dL (0.00-1.30) H 04/30/21 06:20 Total Protein 5.6 g/dL (6.3-8.2) L 04/29/21 04:00 Albumin 2.4 g/dL (3.9-5) L 04/29/21 04:00 Albumin/Globulin Ratio 0.8 % 04/29/21 04:00 Lipase 7 units/L (13-60) L 04/21/21 16:08 Vitamin B12 1039 pg/mL (211-911) H 04/24/21 07:56 Procalcitonin 0.73 ng/mL (<0.15) 04/22/21 00:20 TSH 1.330 mlU/mL (0.270-4.200) 04/24/21 07:56 Free T4 1.03 ng/dL (0.76-1.46) 04/24/21 07:56 Urine Color Leticia (Yellow) 04/21/21 Unknown Urine Turbidity Clear (Clear) 04/21/21 Unknown Urine pH 5.0 (5.0-7.0) 04/21/21 Unknown Ur Specific [place] 1.027 (1.003-1.030) 04/21/21 Unknown Urine Protein 100 mg/dl mg/dL (Negative) 04/21/21 Unknown Urine Glucose (UA) Neg mg/dL (Negative) 04/21/21 Unknown Urine Ketones 20 mg/dL (Negative) 04/21/21 Unknown Urine Blood Mod (Negative) 04/21/21 Unknown Urine Nitrite Neg (Negative) 04/21/21 Unknown Urine Bilirubin Neg (Negative) 04/21/21 Unknown Urine Urobilinogen 4.0 mg/dL (<2.0) 04/21/21 Unknown Ur Leukocyte Esterase Neg (Negative) 04/21/21 Unknown Urine WBC (Auto) < 1.0 /HPF (0.0-6.0) 04/21/21 Unknown Urine RBC (Auto) < 1.0 /HPF (0.0-6.0) 04/21/21 Unknown Urine Mucus Few /HPF 04/21/21 Unknown Coronavirus (PCR) Positive (Negative) A 04/22/21 Unknown Microbiology: Microbiology 04/28/21 16:53 Peripheral/Venous Blood Culture - Final NO GROWTH AFTER 5 DAYS 04/28/21 15:47 Peripheral/Venous Blood Culture - Final NO GROWTH AFTER 5 DAYS [place]/IV: Voiding Method Condom Catheter Active Medications - Current Medications Current Medications: Generic Name Dose Route Start Last Admin Trade Name Freq PRN Reason Stop Dose Admin Acetaminophen 650 mg 04/21/21 22:31 04/23/21 12:43 Acetaminophen 325 Mg Tab PO 650 mg Q4H PRN Administration Pain MILD(1-3)/Fever >100.5/RAY Albuterol 2.5 mg 05/02/21 14:00 05/04/21 03:01 Albuterol 2.5 Mg/3 Ml Nebu IH Not Given Q6HRT [facility] Enoxaparin Sodium 40 mg 04/22/21 10:00 05/03/21 10:47 Enoxaparin 40 Mg/0.4 Ml Inj SUB-Q 40 mg QDAY EDDIE Administration Famotidine 20 mg 04/22/21 10:00 05/03/21 21:17 Famotidine 20 Mg Tab PO 20 mg BID EDDIE Administration Glycopyrrolate 2 mg 05/01/21 14:00 05/03/21 21:16 Glycopyrrolate 2 Mg Tab PO 2 mg BID EDDIE Administration Guaifenesin 200 mg 04/24/21 08:28 05/04/21 04:48 Guaifenesin 100 Mg/5 Ml Oral Liqd PO 200 mg Q4H PRN Administration Cough Levofloxacin/Dextrose 500 mg in 100 mls @ 100 mls/hr 05/02/21 13:00 05/03/21 12:42 Levaquin 500mg/100ml IV 100 mls/hr Q24H EDDIE Administration Protocol Metoclopramide HCl 10 mg 04/21/21 22:31 Metoclopramide 10 Mg/2 Ml Inj IV Q6H PRN Nausea And Vomiting Metoprolol Tartrate 6.25 mg 05/03/21 14:00 05/03/21 21:17 Metoprolol Tartrate 25 Mg Tab PO 6.25 mg BID EDDIE Administration Ondansetron HCl 4 mg 04/21/21 22:31 Ondansetron 4 Mg/2 Ml Inj IV Q8H PRN Nausea And Vomiting Oxycodone/Acetaminophen 1 tab 04/21/21 22:31 04/22/21 22:35 Oxycodone /Acetaminophen 5-325mg Tab PO 1 tab Q6H PRN Administration Pain, Moderate (4-6) Sodium Chloride 10 ml 04/22/21 10:00 05/03/21 21:16 Sodium Chloride 0.9% 10 Ml Flush Syringe IV 10 ml BID EDDIE Administration Sodium Chloride 10 ml 04/21/21 22:31 Sodium Chloride 0.9% 10 Ml Flush Syringe IV PRN PRN LINE FLUSH Valproic Acid 250 mg 05/01/21 22:00 05/03/21 21:16 Valproic Acid 250 Mg/5 Ml Oral Liqd PO 250 mg QHS EDDIE Administration Nutrition/Malnutrition Assess - Dietary Evaluation Nutrition/Malnutrition Findings: Nutrition Notes Start: 04/22/21 18:07 Freq: Status: Active Protocol: Document 04/30/21 09:54 RICKY (Rec: 04/30/21 10:05 RICKY [id number]) Nutrition Notes Initial or Follow up Reassessment Current Diagnosis Respiratory Failure, Malnutrition Other Pertinent Diagnosis COVID-19, Pneumonia, Ac Encephalopathy, Leukocytosis, Hypokalemia. Current Diet NPO (since 04/26 11:10), TF- Jevity 1.2 Louie @ 56 ml/hr ( since B 05/01). Labs/Tests 04/30: Na 151, K 3.3, Cl 110.3 , Crea 0.3, Glu 119, Ferritin 930.1, LacDH 423, C-RP 8.9, Tpro 5.6, Alb 2.4. Pertinent Medications 04/30: Nutritionally unremarkable. Height 6 ft Weight 67.5 kg [place] Body Weight (kg) 80.90 BMI 20.2 Weight change and time frame 0.3 Kg body weight loss in 3 days reported. Weight Status Appropriate Subjective/Other Information RD consult for routine F/U on [employer]IOLOG[employer] evaluation. MD request write/manage TF. Pt did not cooperate with [employer] SOCIOLOG[employer] and was not evaluated. [employer] SOCIOLOGY recommends PEG tube placement. PT does not eat, but seems to have no swallowing problems. Pt appears to have "some sort of chronic underlying mental development process", according to MD. Pt is [place], PEG tube placement needs to be authorized by Guardian. Percent of energy/protein needs met: Pt currently on NPO. Prescribed Jevity 1.2 Louie @ 56 ml/hr provides for energy/ protein needs (1,600 Kcal/74 g ) during LOS, 100% Kcal; 90% AA. Burn Absent Trauma Absent GI Symptoms None Food Allergy No Skin Integrity/Comment Clear, warm, dry. Current % PO Negligible #1 Nutrition Diagnosis Inadequate protein-energy intake As Evidenced by Signs and Symptoms MD request for write/manage TF . Diagnosis Progress(for reassessment Worsened documentation) Is patient on ventilator? No Is Patient Ambulatory and/or Out of Bed No REE-([facility]-confined to bed) 1808.940 Kcal/Kg value to use for calculation 24 Approximate Energy Requirements Using 1620 kcal/Kg Calculation Used for Recommendations Kcal/kg Additional Notes Protein: 1.2-1.5 g/Kg; 82-102 g/day. Fluids: 1 ml/Kcal, or as per MD. Nutrition Intervention Change Diet Order: Continue NPO as per MD. Nutrition Support: Start Jevity 1.2 Louie @ 56 ml/ hr. Flush: 90 ml water Q 4 hr. Kcal 1,600 Protein (gm) 74 Carbohydrates (gm) 226 Fat (gm) 52 Fluid (mL) 1,076 Fiber (gm) 24 % RDI: 100% Kcal; 90% AA. Goal #1 Provide at least 75% of energy /protein needs through Enteral Feeding during LOS. Follow-Up By: 05/04/21 Additional Comments Continue monitoring TF tolerance and BM. Wait for MD decision regarding PEG tube placement.
[2021-05-04] MEDS: ENOXAPARIN 40 MG/0.4 ML INJ SUB-Q SCH (09:22)
[2021-05-04] MEDS: METOPROLOL TARTRATE 25 MG TAB PO SCH ×2 (09:22→21:49)
[2021-05-04] MEDS: GLYCOPYRROLATE 2 MG TAB PO SCH ×2 (09:22→21:47)
[2021-05-04] MEDS: FAMOTIDINE 20 MG TAB PO SCH ×2 (09:23→21:48)
--- NOTE | 2021-05-04 09:28 | Consultation ---
History of Present Illness Consult date: 05/04/21 Reason for Consult: Confusion ,COVID-19 pneumonia,failure to thrive History of present illness: Chest pain since yesterday. History of present illness: 66-year-old -[place] male brought in by family for altered sensorium. Patient was apparently admitted to [facility] recently. Patient is a very poor historian. Could not get much history. Low-grade fever present. Past History Past Medical History: No medical history Past Surgical History: No surgical history Social history: Lives alone, full code Family history: hypertension Medications and Allergies Allergies Allergy/AdvReac Type Severity Reaction Status Date / Time No Known Allergies Allergy Unverified 04/21/21 16:27 Review of Systems All systems: negative Past History Past Medical History: No medical history, other (Likely developmental delay, or mental illness - lives in personal [facility], per ED note) Past Surgical History: No surgical history Social history: Lives alone (Lives in personal care facility, according to ED note. Has court appointed guardian.), full code Family history: hypertension Medications and Allergies Allergies Allergy/AdvReac Type Severity Reaction Status Date / Time No Known Allergies Allergy Verified 04/23/21 12:31 Home Medications Medication Instructions Recorded Confirmed Last Taken Type Divalproex Dr [Tanvir STEWART] 250 mg PO QHS 04/23/21 04/23/21 Unknown History Glycopyrrolate 2 mg PO BID 04/23/21 04/23/21 Unknown History Paliperidone Palmitate [Invega 156 mg IM QMONTH 04/23/21 04/23/21 Unknown History Sustenna] Active Meds: Active Medications Acetaminophen (Acetaminophen 325 Mg Tab) 650 mg PO Q4H PRN PRN Reason: Pain MILD(1-3)/Fever >100.5/RAY Last Admin: 04/23/21 12:43 Dose: 650 mg Albuterol (Albuterol 2.5 Mg/3 Ml Nebu) 2.5 mg IH Q6HRT [facility] Last Admin: 05/04/21 08:40 Dose: 2.5 mg Enoxaparin Sodium (Enoxaparin 40 Mg/0.4 Ml Inj) 40 mg SUB-Q QDAY [facility] Last Admin: 05/04/21 09:22 Dose: 40 mg Famotidine (Famotidine 20 Mg Tab) 20 mg PO BID [facility] Last Admin: 05/04/21 09:23 Dose: 20 mg Glycopyrrolate (Glycopyrrolate 2 Mg Tab) 2 mg PO BID [facility] Last Admin: 05/04/21 09:22 Dose: 2 mg Guaifenesin (Guaifenesin 100 Mg/5 Ml Oral Liqd) 200 mg PO Q4H PRN PRN Reason: Cough Last Admin: 05/04/21 04:48 Dose: 200 mg Levofloxacin/Dextrose (Levaquin 500mg/100ml) 500 mg in 100 mls @ 100 mls/hr IV Q24H [facility]; Protocol Last Admin: 05/03/21 12:42 Dose: 100 mls/hr Metoclopramide HCl (Metoclopramide 10 Mg/2 Ml Inj) 10 mg IV Q6H PRN PRN Reason: Nausea And Vomiting Metoprolol Tartrate (Metoprolol Tartrate 25 Mg Tab) 6.25 mg PO BID [facility] Last Admin: 05/04/21 09:22 Dose: 6.25 mg Ondansetron HCl (Ondansetron 4 Mg/2 Ml Inj) 4 mg IV Q8H PRN PRN Reason: Nausea And Vomiting Oxycodone/Acetaminophen (Oxycodone /Acetaminophen 5-325mg Tab) 1 tab PO Q6H PRN PRN Reason: Pain, Moderate (4-6) Last Admin: 04/22/21 22:35 Dose: 1 tab Sodium Chloride (Sodium Chloride 0.9% 10 Ml Flush Syringe) 10 ml IV BID [facility] Last Admin: 05/04/21 09:23 Dose: 10 ml Sodium Chloride (Sodium Chloride 0.9% 10 Ml Flush Syringe) 10 ml IV PRN PRN PRN Reason: LINE FLUSH Valproic Acid (Valproic Acid 250 Mg/5 Ml Oral Liqd) 250 mg PO QHS [facility] Last Admin: 05/03/21 21:16 Dose: 250 mg Physical Examination - Vital Signs Vital Signs: Vital Signs Temp Pulse Resp BP Pulse Ox 98.4 F 104 H 16 105/74 97 04/21/21 15:16 04/21/21 15:16 04/21/21 15:16 04/21/21 15:16 04/21/21 15:16 - Constitutional General appearance: uncomfortable - EENT EENT: Present: PERRL, mucous membranes moist - Respiratory Respiratory: Present: lungs clear, rhonchi - Cardiovascular Cardiovascular: Present: regular rate, normal S1, normal S2 Extremities: Present: no peripheral edema bilatateraly, no clubbing, cyanosis - Gastrointestinal Gastrointestinal: Present: normoactive bowel sounds - Integumentary Integumentary: Present: normal - Neurologic Cranial nerve examination: PERRL, EOMI, other (significant temporalis wasting bilateral , neck rigidity , not respond to command , slight moan and open eyes , no movment to stimuli ) Results - Laboratory Findings CBC and BMP: 05/03/21 09:20 05/03/21 09:20 Abnormal Lab Findings: Abnormal Labs 04/21/21 04/21/21 04/22/21 16:08 16:08 00:20 WBC RBC Hgb Hct MCV 96 H MCHC RDW Lymph % (Auto) 8.5 L Adams % (Auto) 15.8 H Lymph # (Auto) 0.9 L Adams # (Auto) 1.7 H Seg Neutrophils % 75.6 H Seg Neuts % (Manual) Lymphocytes % (Manual) Monocytes % (Manual) Seg Neutrophils # 8.0 H Seg Neutrophils # Man Lymphocytes # (Manual) Monocytes # (Manual) D-Dimer 621.94 H Sodium Potassium Chloride Carbon Dioxide Creatinine 0.6 L Glucose 107 H POC Glucose Calcium 8.3 L Phosphorus Ferritin AST 136 H Lactate Dehydrogenase C-Reactive Protein Total Protein 6.2 L Albumin 3.0 L Lipase 7 L Vitamin B12 Coronavirus (PCR) 04/22/21 04/22/21 04/22/21 00:20 00:20 06:51 WBC RBC Hgb Hct MCV 95 H MCHC RDW Lymph % (Auto) Adams % (Auto) Lymph # (Auto) Adams # (Auto) Seg Neutrophils % Seg Neuts % (Manual) 91.0 H Lymphocytes % (Manual) 1.0 L Monocytes % (Manual) Seg Neutrophils # Seg Neutrophils # Man Lymphocytes # (Manual) 0.1 L Monocytes # (Manual) D-Dimer Sodium Potassium Chloride Carbon Dioxide Creatinine Glucose POC Glucose Calcium Phosphorus Ferritin 427.3 H AST Lactate Dehydrogenase 379 H C-Reactive Protein 9.20 H Total Protein Albumin Lipase Vitamin B12 Coronavirus (PCR) 04/22/21 04/22/21 04/23/21 06:51 Unknown 09:24 WBC RBC Hgb Hct MCV 96 H MCHC RDW Lymph % (Auto) 5.9 L Adams % (Auto) 9.3 H Lymph # (Auto) 0.5 L Adams # (Auto) Seg Neutrophils % 84.8 H Seg Neuts % (Manual) Lymphocytes % (Manual) Monocytes % (Manual) Seg Neutrophils # Seg Neutrophils # Man Lymphocytes # (Manual) Monocytes # (Manual) D-Dimer Sodium Potassium Chloride Carbon Dioxide Creatinine 0.4 L Glucose 114 H POC Glucose Calcium 8.0 L Phosphorus Ferritin AST 116 H Lactate Dehydrogenase C-Reactive Protein Total Protein 5.9 L Albumin 3.0 L Lipase Vitamin B12 Coronavirus (PCR) Positive A 04/23/21 04/23/21 04/24/21 09:24 22:38 07:56 WBC RBC Hgb Hct MCV MCHC RDW Lymph % (Auto) Adams % (Auto) Lymph # (Auto) Adams # (Auto) Seg Neutrophils % Seg Neuts % (Manual) Lymphocytes % (Manual) Monocytes % (Manual) Seg Neutrophils # Seg Neutrophils # Man Lymphocytes # (Manual) Monocytes # (Manual) D-Dimer Sodium Potassium 3.5 L Chloride Carbon Dioxide Creatinine 0.5 L Glucose 102 H POC Glucose 111 H Calcium 8.3 L Phosphorus 2.30 L Ferritin AST Lactate Dehydrogenase C-Reactive Protein Total Protein Albumin Lipase Vitamin B12 1039 H Coronavirus (PCR) 04/24/21 04/24/21 04/24/21 07:56 07:56 21:37 WBC RBC Hgb Hct MCV 95 H MCHC RDW Lymph % (Auto) Adams % (Auto) Lymph # (Auto) Adams # (Auto) Seg Neutrophils % Seg Neuts % (Manual) 80.0 H Lymphocytes % (Manual) 10.0 L Monocytes % (Manual) 10.0 H Seg Neutrophils # Seg Neutrophils # Man Lymphocytes # (Manual) 0.7 L Monocytes # (Manual) D-Dimer Sodium Potassium Chloride Carbon Dioxide Creatinine 0.4 L Glucose POC Glucose 111 H Calcium Phosphorus Ferritin AST Lactate Dehydrogenase C-Reactive Protein Total Protein Albumin Lipase Vitamin B12 Coronavirus (PCR) 04/25/21 04/25/21 04/25/21 06:24 06:24 23:13 WBC RBC Hgb Hct 46.6 H MCV MCHC RDW Lymph % (Auto) Adams % (Auto) Lymph # (Auto) Adams # (Auto) Seg Neutrophils % Seg Neuts % (Manual) 83.0 H Lymphocytes % (Manual) 1.0 L Monocytes % (Manual) 9.0 H Seg Neutrophils # Seg Neutrophils # Man Lymphocytes # (Manual) 0.1 L Monocytes # (Manual) D-Dimer Sodium 136 L 134 L Potassium 3.3 L Chloride Carbon Dioxide 21 L Creatinine 0.3 L 0.4 L Glucose 115 H POC Glucose Calcium 7.7 L Phosphorus Ferritin AST 104 H Lactate Dehydrogenase C-Reactive Protein Total Protein 6.1 L Albumin 2.6 L Lipase Vitamin B12 Coronavirus (PCR) 04/26/21 04/27/21 04/27/21 06:29 06:31 06:31 WBC 17.6 H RBC Hgb Hct MCV MCHC RDW Lymph % (Auto) Adams % (Auto) Lymph # (Auto) Adams # (Auto) Seg Neutrophils % Seg Neuts % (Manual) 87.0 H Lymphocytes % (Manual) 5.0 L Monocytes % (Manual) Seg Neutrophils # Seg Neutrophils # Man 15.3 H Lymphocytes # (Manual) 0.9 L Monocytes # (Manual) 0.9 H D-Dimer Sodium Potassium 3.4 L Chloride Carbon Dioxide Creatinine 0.5 L 0.4 L Glucose 112 H 106 H POC Glucose Calcium 8.0 L Phosphorus Ferritin AST 114 H 110 H Lactate Dehydrogenase C-Reactive Protein Total Protein 6.2 L Albumin 2.9 L 2.6 L Lipase Vitamin B12 Coronavirus (PCR) 04/28/21 04/28/21 04/29/21 08:03 08:03 04:00 WBC 19.8 H 14.0 H RBC Hgb Hct MCV 95 H MCHC RDW Lymph % (Auto) Adams % (Auto) Lymph # (Auto) Adams # (Auto) Seg Neutrophils % Seg Neuts % (Manual) 94.0 H Lymphocytes % (Manual) 1.0 L Monocytes % (Manual) Seg Neutrophils # Seg Neutrophils # Man 18.6 H Lymphocytes # (Manual) 0.2 L Monocytes # (Manual) D-Dimer Sodium Potassium Chloride Carbon Dioxide Creatinine 0.2 L Glucose 107 H POC Glucose Calcium 8.1 L Phosphorus Ferritin AST 87 H Lactate Dehydrogenase C-Reactive Protein Total Protein 5.1 L Albumin 2.4 L Lipase Vitamin B12 Coronavirus (PCR) 04/29/21 04/30/21 04/30/21 04:00 06:20 06:20 WBC RBC Hgb Hct MCV MCHC RDW Lymph % (Auto) Adams % (Auto) Lymph # (Auto) Adams # (Auto) Seg Neutrophils % Seg Neuts % (Manual) Lymphocytes % (Manual) Monocytes % (Manual) Seg Neutrophils # Seg Neutrophils # Man Lymphocytes # (Manual) Monocytes # (Manual) D-Dimer 690.97 H Sodium 148 H Potassium 3.0 L Chloride 110.2 H Carbon Dioxide Creatinine 0.2 L Glucose 130 H POC Glucose Calcium Phosphorus Ferritin 930.1 H AST 63 H Lactate Dehydrogenase C-Reactive Protein Total Protein 5.6 L Albumin 2.4 L Lipase Vitamin B12 Coronavirus (PCR) 04/30/21 04/30/21 04/30/21 06:20 08:01 08:41 WBC RBC Hgb Hct MCV MCHC RDW Lymph % (Auto) Adams % (Auto) Lymph # (Auto) Adams # (Auto) Seg Neutrophils % Seg Neuts % (Manual) Lymphocytes % (Manual) Monocytes % (Manual) Seg Neutrophils # Seg Neutrophils # Man Lymphocytes # (Manual) Monocytes # (Manual) D-Dimer Sodium 151 H Potassium 3.3 L Chloride 110.3 H Carbon Dioxide Creatinine 0.3 L Glucose 119 H POC Glucose 119 H Calcium Phosphorus Ferritin AST Lactate Dehydrogenase 423 H C-Reactive Protein 8.90 H Total Protein Albumin Lipase Vitamin B12 Coronavirus (PCR) 04/30/21 05/01/21 05/01/21 11:14 07:29 07:29 WBC 21.4 H RBC Hgb Hct MCV MCHC RDW Lymph % (Auto) Adams % (Auto) Lymph # (Auto) Adams # (Auto) Seg Neutrophils % Seg Neuts % (Manual) Lymphocytes % (Manual) Monocytes % (Manual) Seg Neutrophils # Seg Neutrophils # Man Lymphocytes # (Manual) Monocytes # (Manual) D-Dimer Sodium 150 H Potassium 2.7 L* Chloride 111.2 H Carbon Dioxide Creatinine 0.3 L Glucose 162 H POC Glucose 113 H Calcium Phosphorus Ferritin AST Lactate Dehydrogenase C-Reactive Protein Total Protein Albumin Lipase Vitamin B12 Coronavirus (PCR) 05/01/21 05/01/21 05/01/21 07:33 11:28 17:54 WBC RBC Hgb Hct MCV MCHC RDW Lymph % (Auto) Adams % (Auto) Lymph # (Auto) Adams # (Auto) Seg Neutrophils % Seg Neuts % (Manual) Lymphocytes % (Manual) Monocytes % (Manual) Seg Neutrophils # Seg Neutrophils # Man Lymphocytes # (Manual) Monocytes # (Manual) D-Dimer Sodium Potassium Chloride Carbon Dioxide Creatinine Glucose POC Glucose 147 H 152 H 165 H Calcium Phosphorus Ferritin AST Lactate Dehydrogenase C-Reactive Protein Total Protein Albumin Lipase Vitamin B12 Coronavirus (PCR) 05/02/21 05/02/21 05/02/21 00:23 05:28 05:28 WBC 18.9 H RBC Hgb Hct MCV 95 H MCHC 31 L RDW Lymph % (Auto) Adams % (Auto) Lymph # (Auto) Adams # (Auto) Seg Neutrophils % Seg Neuts % (Manual) Lymphocytes % (Manual) Monocytes % (Manual) Seg Neutrophils # Seg Neutrophils # Man Lymphocytes # (Manual) Monocytes # (Manual) D-Dimer Sodium 151 H Potassium Chloride 111.4 H Carbon Dioxide Creatinine 0.3 L Glucose 132 H POC Glucose 160 H Calcium 8.3 L Phosphorus Ferritin AST Lactate Dehydrogenase C-Reactive Protein Total Protein Albumin Lipase Vitamin B12 Coronavirus (PCR) 05/02/21 05/02/21 05/02/21 07:42 11:31 16:39 WBC RBC Hgb Hct MCV MCHC RDW Lymph % (Auto) Adams % (Auto) Lymph # (Auto) Adams # (Auto) Seg Neutrophils % Seg Neuts % (Manual) Lymphocytes % (Manual) Monocytes % (Manual) Seg Neutrophils # Seg Neutrophils # Man Lymphocytes # (Manual) Monocytes # (Manual) D-Dimer Sodium Potassium Chloride Carbon Dioxide Creatinine Glucose POC Glucose 170 H 131 H 140 H Calcium Phosphorus Ferritin AST Lactate Dehydrogenase C-Reactive Protein Total Protein Albumin Lipase Vitamin B12 Coronavirus (PCR) 05/02/21 05/03/21 05/03/21 22:42 06:11 09:20 WBC 16.2 H RBC 3.51 L Hgb 10.5 L Hct 33.1 L MCV MCHC RDW 15.4 H Lymph % (Auto) Adams % (Auto) Lymph # (Auto) Adams # (Auto) Seg Neutrophils % Seg Neuts % (Manual) Lymphocytes % (Manual) Monocytes % (Manual) Seg Neutrophils # Seg Neutrophils # Man Lymphocytes # (Manual) Monocytes # (Manual) D-Dimer Sodium Potassium Chloride Carbon Dioxide Creatinine Glucose POC Glucose 107 H 108 H Calcium Phosphorus Ferritin AST Lactate Dehydrogenase C-Reactive Protein Total Protein Albumin Lipase Vitamin B12 Coronavirus (PCR) 05/03/21 05/03/21 05/03/21 09:20 11:01 17:33 WBC RBC Hgb Hct MCV MCHC RDW Lymph % (Auto) Adams % (Auto) Lymph # (Auto) Adams # (Auto) Seg Neutrophils % Seg Neuts % (Manual) Lymphocytes % (Manual) Monocytes % (Manual) Seg Neutrophils # Seg Neutrophils # Man Lymphocytes # (Manual) Monocytes # (Manual) D-Dimer Sodium 149 H Potassium 3.5 L Chloride 110.0 H Carbon Dioxide Creatinine 0.3 L Glucose 113 H POC Glucose 146 H 118 H Calcium 8.0 L Phosphorus Ferritin AST Lactate Dehydrogenase C-Reactive Protein Total Protein Albumin Lipase Vitamin B12 Coronavirus (PCR) 05/04/21 05:51 WBC RBC Hgb Hct MCV MCHC RDW Lymph % (Auto) Adams % (Auto) Lymph # (Auto) Adams # (Auto) Seg Neutrophils % Seg Neuts % (Manual) Lymphocytes % (Manual) Monocytes % (Manual) Seg Neutrophils # Seg Neutrophils # Man Lymphocytes # (Manual) Monocytes # (Manual) D-Dimer Sodium Potassium Chloride Carbon Dioxide Creatinine Glucose POC Glucose 143 H Calcium Phosphorus Ferritin AST Lactate Dehydrogenase C-Reactive Protein Total Protein Albumin Lipase Vitamin B12 Coronavirus (PCR) Assessment and Plan Assessment and Plan Assessment and plan: #Acute metabolic encephalopathy and or infection , failure to thrive with significant muscle wasting and weight loss ? -CT head negative for acute abnormality -Baseline patient able to perform ADLs -Could be secondary to COVID infection, -MRI pending Guardian authorization - ID evalute -Hydration, -EEG -hold valproic acid for now #COVID-19 pneumonia #Acute hypoxic respiratory failure #Mucus plugging -currently on supplemental O2, will wean as tolerated -s/p dexamethasone x 10 days & remdesivir -CTA ordered, negative for PE but shows LLL atelectasis likely 2/2 to mucus plugging -ID following, assistance appreciated -continue levaquin, pulmonary toilet and deep suctioning -Pulmonology consulted, assistance appreciated #Leukocytosis -BCx 1/04 NGTD -downtrending -likely 2/2 to steroids vs PNA #Aspiration risk -speech therapy evaluation recommended PEG tube placement -GI consult for PEG tube placement, will perform after approval by Guardian #Hypokalemia -will continue to replete monitor #Hypernatremia -250cc q6h free water flushes -will continue to monitor -likely 2/2 to lack of oral intake #Severe protein calorie malnutrition -BMI 20.3; albumin 2.4 -Nutrition consulted -continue tube feeding #Social issues -Patient is a hererra of [facility], contact is Ms. Mattson to discuss clinical updates/consent for procedures ([phone]) prognosis is quarded will follow
--- NOTE | 2021-05-04 14:40 | Progress Note ---
Assessment and Plan 66 y/o male with altered mental status found to be COVID positive, now with worsening respiratory failure. 1. Mucous plug on CTA. Needs CPT but more than daily. Please increase to at least TID 2. Prone as much as possible and sleep prone at night 3. Has already finished steroids 4. Guarded prognosis. Subjective Date of service: 05/04/21 Interval history: No acute events. On NRB with good sats. Objective Vital Signs - 12hr 05/04/21 05/04/21 05/04/21 05:50 08:40 12:04 Temperature 99.7 F H 98.9 F Pulse Rate 122 H 126 H Pulse Rate [ 132 H Anterior Bilateral Throughout] Respiratory 18 28 H Rate Respiratory 24 Rate [Anterior Bilateral Throughout] Blood Pressure 104/59 104/62 O2 Sat by Pulse 99 98 99 Oximetry Constitutional: other (on nrb mask sat 100%, opens eyes to tactile stimuli, doesnt follow command ) ENT: oropharynx moist, oropharynx dry Ascultation: Bilateral: rhonchi (sl better) Cardiovascular: regular rate and rhythm, PVC's noted Gastrointestinal: normoactive bowel sounds Integumentary: normal CBC and BMP: 05/03/21 09:20 05/03/21 09:20 ABG, PT/INR, D-dimer: PT/INR, D-dimer D-Dimer 690.97 ng/mlDDU (0-234) H 04/30/21 06:20 Abnormal lab findings: Abnormal Labs 04/21/21 04/21/21 04/22/21 16:08 16:08 00:20 WBC RBC Hgb Hct MCV 96 H MCHC RDW Lymph % (Auto) 8.5 L Amelia % (Auto) 15.8 H Lymph # (Auto) 0.9 L Amelia # (Auto) 1.7 H Seg Neutrophils % 75.6 H Seg Neuts % (Manual) Lymphocytes % (Manual) Monocytes % (Manual) Seg Neutrophils # 8.0 H Seg Neutrophils # Man Lymphocytes # (Manual) Monocytes # (Manual) D-Dimer 621.94 H Sodium Potassium Chloride Carbon Dioxide Creatinine 0.6 L Glucose 107 H POC Glucose Calcium 8.3 L Phosphorus Ferritin AST 136 H Lactate Dehydrogenase C-Reactive Protein Total Protein 6.2 L Albumin 3.0 L Lipase 7 L Vitamin B12 Coronavirus (PCR) 04/22/21 04/22/2121 00:20 00:20 06:51 WBC RBC Hgb Hct MCV 95 H MCHC RDW Lymph % (Auto) Amelia % (Auto) Lymph # (Auto) Amelia # (Auto) Seg Neutrophils % Seg Neuts % (Manual) 91.0 H Lymphocytes % (Manual) 1.0 L Monocytes % (Manual) Seg Neutrophils # Seg Neutrophils # Man Lymphocytes # (Manual) 0.1 L Monocytes # (Manual) D-Dimer Sodium Potassium Chloride Carbon Dioxide Creatinine Glucose POC Glucose Calcium Phosphorus Ferritin 427.3 H AST Lactate Dehydrogenase 379 H C-Reactive Protein 9.20 H Total Protein Albumin Lipase Vitamin B12 Coronavirus (PCR) 04/22/21 04/22/21 04/23/21 06:51 Unknown 09:24 WBC RBC Hgb Hct MCV 96 H MCHC RDW Lymph % (Auto) 5.9 L Amelia % (Auto) 9.3 H Lymph # (Auto) 0.5 L Amelia # (Auto) Seg Neutrophils % 84.8 H Seg Neuts % (Manual) Lymphocytes % (Manual) Monocytes % (Manual) Seg Neutrophils # Seg Neutrophils # Man Lymphocytes # (Manual) Monocytes # (Manual) D-Dimer Sodium Potassium Chloride Carbon Dioxide Creatinine 0.4 L Glucose 114 H POC Glucose Calcium 8.0 L Phosphorus Ferritin AST 116 H Lactate Dehydrogenase C-Reactive Protein Total Protein 5.9 L Albumin 3.0 L Lipase Vitamin B12 Coronavirus (PCR) Positive A 04/23/21 04/23/21 04/24/21 09:24 22:38 07:56 WBC RBC Hgb Hct MCV MCHC RDW Lymph % (Auto) Amelia % (Auto) Lymph # (Auto) Amelia # (Auto) Seg Neutrophils % Seg Neuts % (Manual) Lymphocytes % (Manual) Monocytes % (Manual) Seg Neutrophils # Seg Neutrophils # Man Lymphocytes # (Manual) Monocytes # (Manual) D-Dimer Sodium Potassium 3.5 L Chloride Carbon Dioxide Creatinine 0.5 L Glucose 102 H POC Glucose 111 H Calcium 8.3 L Phosphorus 2.30 L Ferritin AST Lactate Dehydrogenase C-Reactive Protein Total Protein Albumin Lipase Vitamin B12 1039 H Coronavirus (PCR) 04/24/21 04/24/21 04/24/21 07:56 07:56 21:37 WBC RBC Hgb Hct MCV 95 H MCHC RDW Lymph % (Auto) Amelia % (Auto) Lymph # (Auto) Amelia # (Auto) Seg Neutrophils % Seg Neuts % (Manual) 80.0 H Lymphocytes % (Manual) 10.0 L Monocytes % (Manual) 10.0 H Seg Neutrophils # Seg Neutrophils # Man Lymphocytes # (Manual) 0.7 L Monocytes # (Manual) D-Dimer Sodium Potassium Chloride Carbon Dioxide Creatinine 0.4 L Glucose POC Glucose 111 H Calcium Phosphorus Ferritin AST Lactate Dehydrogenase C-Reactive Protein Total Protein Albumin Lipase Vitamin B12 Coronavirus (PCR) 04/25/21 04/25/21 04/25/21 06:24 06:24 23:13 WBC RBC Hgb Hct 46.6 H MCV MCHC RDW Lymph % (Auto) Amelia % (Auto) Lymph # (Auto) Amelia # (Auto) Seg Neutrophils % Seg Neuts % (Manual) 83.0 H Lymphocytes % (Manual) 1.0 L Monocytes % (Manual) 9.0 H Seg Neutrophils # Seg Neutrophils # Man Lymphocytes # (Manual) 0.1 L Monocytes # (Manual) D-Dimer Sodium 136 L 134 L Potassium 3.3 L Chloride Carbon Dioxide 21 L Creatinine 0.3 L 0.4 L Glucose 115 H POC Glucose Calcium 7.7 L Phosphorus Ferritin AST 104 H Lactate Dehydrogenase C-Reactive Protein Total Protein 6.1 L Albumin 2.6 L Lipase Vitamin B12 Coronavirus (PCR) 04/26/21 04/27/21 04/27/21 06:29 06:31 06:31 WBC 17.6 H RBC Hgb Hct MCV MCHC RDW Lymph % (Auto) Amelia % (Auto) Lymph # (Auto) Amelia # (Auto) Seg Neutrophils % Seg Neuts % (Manual) 87.0 H Lymphocytes % (Manual) 5.0 L Monocytes % (Manual) Seg Neutrophils # Seg Neutrophils # Man 15.3 H Lymphocytes # (Manual) 0.9 L Monocytes # (Manual) 0.9 H D-Dimer Sodium Potassium 3.4 L Chloride Carbon Dioxide Creatinine 0.5 L 0.4 L Glucose 112 H 106 H POC Glucose Calcium 8.0 L Phosphorus Ferritin AST 114 H 110 H Lactate Dehydrogenase C-Reactive Protein Total Protein 6.2 L Albumin 2.9 L 2.6 L Lipase Vitamin B12 Coronavirus (PCR) 04/28/21 04/28/21 04/29/21 08:03 08:03 04:00 WBC 19.8 H 14.0 H RBC Hgb Hct MCV 95 H MCHC RDW Lymph % (Auto) Amelia % (Auto) Lymph # (Auto) Amelia # (Auto) Seg Neutrophils % Seg Neuts % (Manual) 94.0 H Lymphocytes % (Manual) 1.0 L Monocytes % (Manual) Seg Neutrophils # Seg Neutrophils # Man 18.6 H Lymphocytes # (Manual) 0.2 L Monocytes # (Manual) D-Dimer Sodium Potassium Chloride Carbon Dioxide Creatinine 0.2 L Glucose 107 H POC Glucose Calcium 8.1 L Phosphorus Ferritin AST 87 H Lactate Dehydrogenase C-Reactive Protein Total Protein 5.1 L Albumin 2.4 L Lipase Vitamin B12 Coronavirus (PCR) 04/29/21 04/30/21 04/30/21 04:00 06:20 06:20 WBC RBC Hgb Hct MCV MCHC RDW Lymph % (Auto) Amelia % (Auto) Lymph # (Auto) Amelia # (Auto) Seg Neutrophils % Seg Neuts % (Manual) Lymphocytes % (Manual) Monocytes % (Manual) Seg Neutrophils # Seg Neutrophils # Man Lymphocytes # (Manual) Monocytes # (Manual) D-Dimer 690.97 H Sodium 148 H Potassium 3.0 L Chloride 110.2 H Carbon Dioxide Creatinine 0.2 L Glucose 130 H POC Glucose Calcium Phosphorus Ferritin 930.1 H AST 63 H Lactate Dehydrogenase C-Reactive Protein Total Protein 5.6 L Albumin 2.4 L Lipase Vitamin B12 Coronavirus (PCR) 04/30/21 04/30/21 04/30/21 06:20 08:01 08:41 WBC RBC Hgb Hct MCV MCHC RDW Lymph % (Auto) Amelia % (Auto) Lymph # (Auto) Amelia # (Auto) Seg Neutrophils % Seg Neuts % (Manual) Lymphocytes % (Manual) Monocytes % (Manual) Seg Neutrophils # Seg Neutrophils # Man Lymphocytes # (Manual) Monocytes # (Manual) D-Dimer Sodium 151 H Potassium 3.3 L Chloride 110.3 H Carbon Dioxide Creatinine 0.3 L Glucose 119 H POC Glucose 119 H Calcium Phosphorus Ferritin AST Lactate Dehydrogenase 423 H C-Reactive Protein 8.90 H Total Protein Albumin Lipase Vitamin B12 Coronavirus (PCR) 04/30/21 05/01/21 05/01/21 11:14 07:29 07:29 WBC 21.4 H RBC Hgb Hct MCV MCHC RDW Lymph % (Auto) Amelia % (Auto) Lymph # (Auto) Amelia # (Auto) Seg Neutrophils % Seg Neuts % (Manual) Lymphocytes % (Manual) Monocytes % (Manual) Seg Neutrophils # Seg Neutrophils # Man Lymphocytes # (Manual) Monocytes # (Manual) D-Dimer Sodium 150 H Potassium 2.7 L* Chloride 111.2 H Carbon Dioxide Creatinine 0.3 L Glucose 162 H POC Glucose 113 H Calcium Phosphorus Ferritin AST Lactate Dehydrogenase C-Reactive Protein Total Protein Albumin Lipase Vitamin B12 Coronavirus (PCR) 05/01/21 05/01/21 05/01/21 07:33 11:28 17:54 WBC RBC Hgb Hct MCV MCHC RDW Lymph % (Auto) Amelia % (Auto) Lymph # (Auto) Amelia # (Auto) Seg Neutrophils % Seg Neuts % (Manual) Lymphocytes % (Manual) Monocytes % (Manual) Seg Neutrophils # Seg Neutrophils # Man Lymphocytes # (Manual) Monocytes # (Manual) D-Dimer Sodium Potassium Chloride Carbon Dioxide Creatinine Glucose POC Glucose 147 H 152 H 165 H Calcium Phosphorus Ferritin AST Lactate Dehydrogenase C-Reactive Protein Total Protein Albumin Lipase Vitamin B12 Coronavirus (PCR) 05/02/21 05/02/21 05/02/21 00:23 05:28 05:28 WBC 18.9 H RBC Hgb Hct MCV 95 H MCHC 31 L RDW Lymph % (Auto) Amelia % (Auto) Lymph # (Auto) Amelia # (Auto) Seg Neutrophils % Seg Neuts % (Manual) Lymphocytes % (Manual) Monocytes % (Manual) Seg Neutrophils # Seg Neutrophils # Man Lymphocytes # (Manual) Monocytes # (Manual) D-Dimer Sodium 151 H Potassium Chloride 111.4 H Carbon Dioxide Creatinine 0.3 L Glucose 132 H POC Glucose 160 H Calcium 8.3 L Phosphorus Ferritin AST Lactate Dehydrogenase C-Reactive Protein Total Protein Albumin Lipase Vitamin B12 Coronavirus (PCR) 05/02/21 05/02/21 05/02/21 07:42 11:31 16:39 WBC RBC Hgb Hct MCV MCHC RDW Lymph % (Auto) Amelia % (Auto) Lymph # (Auto) Amelia # (Auto) Seg Neutrophils % Seg Neuts % (Manual) Lymphocytes % (Manual) Monocytes % (Manual) Seg Neutrophils # Seg Neutrophils # Man Lymphocytes # (Manual) Monocytes # (Manual) D-Dimer Sodium Potassium Chloride Carbon Dioxide Creatinine Glucose POC Glucose 170 H 131 H 140 H Calcium Phosphorus Ferritin AST Lactate Dehydrogenase C-Reactive Protein Total Protein Albumin Lipase Vitamin B12 Coronavirus (PCR) 05/02/21 05/03/2105/03/22 22:42 06:11 09:20 WBC 16.2 H RBC 3.51 L Hgb 10.5 L Hct 33.1 L MCV MCHC RDW 15.4 H Lymph % (Auto) Amelia % (Auto) Lymph # (Auto) Amelia # (Auto) Seg Neutrophils % Seg Neuts % (Manual) Lymphocytes % (Manual) Monocytes % (Manual) Seg Neutrophils # Seg Neutrophils # Man Lymphocytes # (Manual) Monocytes # (Manual) D-Dimer Sodium Potassium Chloride Carbon Dioxide Creatinine Glucose POC Glucose 107 H 108 H Calcium Phosphorus Ferritin AST Lactate Dehydrogenase C-Reactive Protein Total Protein Albumin Lipase Vitamin B12 Coronavirus (PCR) 05/03/21 05/03/21 05/03/21 09:20 11:01 17:33 WBC RBC Hgb Hct MCV MCHC RDW Lymph % (Auto) Amelia % (Auto) Lymph # (Auto) Amelia # (Auto) Seg Neutrophils % Seg Neuts % (Manual) Lymphocytes % (Manual) Monocytes % (Manual) Seg Neutrophils # Seg Neutrophils # Man Lymphocytes # (Manual) Monocytes # (Manual) D-Dimer Sodium 149 H Potassium 3.5 L Chloride 110.0 H Carbon Dioxide Creatinine 0.3 L Glucose 113 H POC Glucose 146 H 118 H Calcium 8.0 L Phosphorus Ferritin AST Lactate Dehydrogenase C-Reactive Protein Total Protein Albumin Lipase Vitamin B12 Coronavirus (PCR) 05/04/21 05:51 WBC RBC Hgb Hct MCV MCHC RDW Lymph % (Auto) Amelia % (Auto) Lymph # (Auto) Amelia # (Auto) Seg Neutrophils % Seg Neuts % (Manual) Lymphocytes % (Manual) Monocytes % (Manual) Seg Neutrophils # Seg Neutrophils # Man Lymphocytes # (Manual) Monocytes # (Manual) D-Dimer Sodium Potassium Chloride Carbon Dioxide Creatinine Glucose POC Glucose 143 H Calcium Phosphorus Ferritin AST Lactate Dehydrogenase C-Reactive Protein Total Protein Albumin Lipase Vitamin B12 Coronavirus (PCR)
--- NOTE | 2021-05-04 16:20 | Progress Note ---
Assessment and Plan Cultures: 04/21/2021 blood culture: No growth 04/21/2021 urine culture: No growth 04/22/2021 COVID-19 PCR: Positive 04/28/2021 blood culture: No growth A/P: 66-year-old man unknown past medical history sent to the hospital with COVID-19 pneumonia and acute encephalopathy. #COVID-19 pneumonia: Patient presented with 3 days of symptoms, chest x-ray with diffuse bilateral infiltrates, admission O2 sats decreased on room air. Inflammatory markers elevated. CRP 9.2. #Acute hypoxemic respiratory failure: Likely secondary to COVID-19 infection. CTA on 05/02/2021 showed bilateral pneumonia and complete left lower lobe atelectasis secondary to mucous plugging. Pulmonary following. On NRB. #Acute encephalopathy: May be secondary to acute infection with COVID-19. Also hypernatremic #Leukocytosis: Likely secondary to steroids. Recommendations: -Completed steroids, Remdesivir -Anticoagulation per hospital protocol -CTA on 05/02/2021 showed bilateral pneumonia and complete left lower lobe atelectasis secondary to mucous plugging. Pulmonary following -Completed cefepime. Continue levofloxacin for now, procalcitonin reordered for a.m. -guarded prognosis Jessica eLija MD, FACP, [facility] ([facility] O: [phone] F: [phone] Subjective Date of service: 05/04/21 Interval history: Afebrile. On nonrebreather. CRP has worsened to 15.4 Objective - Exam Narrative Exam: Physical Exam (reviewed in chart to minimize risk of transmission) Constitutional: deferred Head, Ears, Nose: deferred Eyes: deferred Neck: deferred Oral: deferred Cardiovascular: deferred Respiratory: deferred GI: deferred Musculoskeletal: deferred Skin: deferred Hem/Lymphatic: deferred Psych: deferred Neurological: deferred - Constitutional Vitals: Vital Signs Temp Pulse Resp BP Pulse Ox 98.9 F 131 H 24 104/62 99 05/04/21 12:04 05/04/21 14:39 05/04/21 14:39 05/04/21 12:04 05/04/21 14:00 Temperature -Last 24 Hours Temperature 98.9 F Temperature 99.7 F Temperature 98.2 F Temperature 99.1 F - Labs CBC & Chem 7: 05/03/21 09:20 05/03/21 09:20 Labs: Abnormal lab results 05/03/21 05/04/21 05/04/21 Range/Units 17:33 05:51 13:28 POC Glucose 118 H 143 H (70-105) mg/dL C-Reactive Protein 15.40 H (0.00-1.30) mg/dL Valproic Acid (50-100) ug/mL 05/04/21 Range/Units 13:28 POC Glucose (70-105) mg/dL C-Reactive Protein (0.00-1.30) mg/dL Valproic Acid 10.9 L (50-100) ug/mL
[2021-05-04] MEDS: VALPROIC ACID 250 MG/5 ML ORAL LIQD PO SCH (21:50)
[2021-05-05] MEDS: FREE WATER PO SCH ×4 (00:25→13:14)
[2021-05-05] MEDS: ALBUTEROL 2.5 MG/3 ML NEBU IH SCH ×4 (01:25→20:31)
--- NOTE | 2021-05-05 08:31 | Progress Note ---
Assessment and Plan 66 y/o male with altered mental status found to be COVID positive, now with worsening respiratory failure. 05/05/21: Increased CPT to 3-6x daily. Should be done with scheduled albuterol therapy. Please wake patient up for scheduled meds as we are trying to remove mucous and improve oxygenation. Will discuss with RT to pass on to night shit. Prone as much as possible. Daily net negative fluid balance 1. Mucous plug on CTA. Needs CPT but more than daily. Please increase to at least TID 2. Prone as much as possible and sleep prone at night 3. Has already finished steroids 4. Guarded prognosis. Subjective Date of service: 05/05/21 Interval history: Remains on HFNC. I increased CPT this am. Patient not given neb treatment last night as he was asleep, despite it being ordered as scheduled. Objective Vital Signs - 12hr 05/04/21 05/04/21 05/04/21 21:14 21:49 22:00 Temperature 98.9 F Pulse Rate 133 H 107 H Pulse Rate [ 107 H Radial] Respiratory 16 Rate Blood Pressure 102/58 O2 Sat by Pulse 95 99 Oximetry 05/05/21 05/05/21 04:26 05:23 Temperature 99.7 F H Pulse Rate 134 H Pulse Rate [ Radial] Respiratory 16 Rate Blood Pressure 107/63 O2 Sat by Pulse 97 97 Oximetry Constitutional: other (on nrb mask sat 100%, opens eyes to tactile stimuli, doesnt follow command ) ENT: oropharynx moist, oropharynx dry Ascultation: Bilateral: rhonchi (sl better) Cardiovascular: regular rate and rhythm, PVC's noted Gastrointestinal: normoactive bowel sounds Integumentary: normal CBC and BMP: 05/03/21 09:20 05/03/21 09:20 ABG, PT/INR, D-dimer: PT/INR, D-dimer D-Dimer 690.97 ng/mlDDU (0-234) H 04/30/21 06:20 Abnormal lab findings: Abnormal Labs 04/21/21 04/21/21 04/22/21 16:08 16:08 00:20 WBC RBC Hgb Hct MCV 96 H MCHC RDW Lymph % (Auto) 8.5 L [place] % (Auto) 15.8 H Lymph # (Auto) 0.9 L [place] # (Auto) 1.7 H Seg Neutrophils % 75.6 H Seg Neuts % (Manual) Lymphocytes % (Manual) Monocytes % (Manual) Seg Neutrophils # 8.0 H Seg Neutrophils # Man Lymphocytes # (Manual) Monocytes # (Manual) D-Dimer 621.94 H Sodium Potassium Chloride Carbon Dioxide Creatinine 0.6 L Glucose 107 H POC Glucose Calcium 8.3 L Phosphorus Ferritin AST 136 H Lactate Dehydrogenase C-Reactive Protein Total Protein 6.2 L Albumin 3.0 L Lipase 7 L Vitamin B12 Valproic Acid Coronavirus (PCR) 04/22/21 04/22/21 04/22/21 00:20 00:20 06:51 WBC RBC Hgb Hct MCV 95 H MCHC RDW Lymph % (Auto) [place] % (Auto) Lymph # (Auto) [place] # (Auto) Seg Neutrophils % Seg Neuts % (Manual) 91.0 H Lymphocytes % (Manual) 1.0 L Monocytes % (Manual) Seg Neutrophils # Seg Neutrophils # Man Lymphocytes # (Manual) 0.1 L Monocytes # (Manual) D-Dimer Sodium Potassium Chloride Carbon Dioxide Creatinine Glucose POC Glucose Calcium Phosphorus Ferritin 427.3 H AST Lactate Dehydrogenase 379 H C-Reactive Protein 9.20 H Total Protein Albumin Lipase Vitamin B12 Valproic Acid Coronavirus (PCR) 04/22/21 04/22/21 04/23/21 06:51 Unknown 09:24 WBC RBC Hgb Hct MCV 96 H MCHC RDW Lymph % (Auto) 5.9 L [place] % (Auto) 9.3 H Lymph # (Auto) 0.5 L [place] # (Auto) Seg Neutrophils % 84.8 H Seg Neuts % (Manual) Lymphocytes % (Manual) Monocytes % (Manual) Seg Neutrophils # Seg Neutrophils # Man Lymphocytes # (Manual) Monocytes # (Manual) D-Dimer Sodium Potassium Chloride Carbon Dioxide Creatinine 0.4 L Glucose 114 H POC Glucose Calcium 8.0 L Phosphorus Ferritin AST 116 H Lactate Dehydrogenase C-Reactive Protein Total Protein 5.9 L Albumin 3.0 L Lipase Vitamin B12 Valproic Acid Coronavirus (PCR) Positive A 04/23/21 04/23/21 04/24/21 09:24 22:38 07:56 WBC RBC Hgb Hct MCV MCHC RDW Lymph % (Auto) [place] % (Auto) Lymph # (Auto) [place] # (Auto) Seg Neutrophils % Seg Neuts % (Manual) Lymphocytes % (Manual) Monocytes % (Manual) Seg Neutrophils # Seg Neutrophils # Man Lymphocytes # (Manual) Monocytes # (Manual) D-Dimer Sodium Potassium 3.5 L Chloride Carbon Dioxide Creatinine 0.5 L Glucose 102 H POC Glucose 111 H Calcium 8.3 L Phosphorus 2.30 L Ferritin AST Lactate Dehydrogenase C-Reactive Protein Total Protein Albumin Lipase Vitamin B12 1039 H Valproic Acid Coronavirus (PCR) 04/24/21 04/24/21 04/24/21 07:56 07:56 21:37 WBC RBC Hgb Hct MCV 95 H MCHC RDW Lymph % (Auto) [place] % (Auto) Lymph # (Auto) [place] # (Auto) Seg Neutrophils % Seg Neuts % (Manual) 80.0 H Lymphocytes % (Manual) 10.0 L Monocytes % (Manual) 10.0 H Seg Neutrophils # Seg Neutrophils # Man Lymphocytes # (Manual) 0.7 L Monocytes # (Manual) D-Dimer Sodium Potassium Chloride Carbon Dioxide Creatinine 0.4 L Glucose POC Glucose 111 H Calcium Phosphorus Ferritin AST Lactate Dehydrogenase C-Reactive Protein Total Protein Albumin Lipase Vitamin B12 Valproic Acid Coronavirus (PCR) 04/25/21 04/25/21 04/25/21 06:24 06:24 23:13 WBC RBC Hgb Hct 46.6 H MCV MCHC RDW Lymph % (Auto) [place] % (Auto) Lymph # (Auto) [place] # (Auto) Seg Neutrophils % Seg Neuts % (Manual) 83.0 H Lymphocytes % (Manual) 1.0 L Monocytes % (Manual) 9.0 H Seg Neutrophils # Seg Neutrophils # Man Lymphocytes # (Manual) 0.1 L Monocytes # (Manual) D-Dimer Sodium 136 L 134 L Potassium 3.3 L Chloride Carbon Dioxide 21 L Creatinine 0.3 L 0.4 L Glucose 115 H POC Glucose Calcium 7.7 L Phosphorus Ferritin AST 104 H Lactate Dehydrogenase C-Reactive Protein Total Protein 6.1 L Albumin 2.6 L Lipase Vitamin B12 Valproic Acid Coronavirus (PCR) 04/26/21 04/27/21 04/27/21 06:29 06:31 06:31 WBC 17.6 H RBC Hgb Hct MCV MCHC RDW Lymph % (Auto) [place] % (Auto) Lymph # (Auto) [place] # (Auto) Seg Neutrophils % Seg Neuts % (Manual) 87.0 H Lymphocytes % (Manual) 5.0 L Monocytes % (Manual) Seg Neutrophils # Seg Neutrophils # Man 15.3 H Lymphocytes # (Manual) 0.9 L Monocytes # (Manual) 0.9 H D-Dimer Sodium Potassium 3.4 L Chloride Carbon Dioxide Creatinine 0.5 L 0.4 L Glucose 112 H 106 H POC Glucose Calcium 8.0 L Phosphorus Ferritin AST 114 H 110 H Lactate Dehydrogenase C-Reactive Protein Total Protein 6.2 L Albumin 2.9 L 2.6 L Lipase Vitamin B12 Valproic Acid Coronavirus (PCR) 04/28/21 04/28/21 04/29/21 08:03 08:03 04:00 WBC 19.8 H 14.0 H RBC Hgb Hct MCV 95 H MCHC RDW Lymph % (Auto) [place] % (Auto) Lymph # (Auto) [place] # (Auto) Seg Neutrophils % Seg Neuts % (Manual) 94.0 H Lymphocytes % (Manual) 1.0 L Monocytes % (Manual) Seg Neutrophils # Seg Neutrophils # Man 18.6 H Lymphocytes # (Manual) 0.2 L Monocytes # (Manual) D-Dimer Sodium Potassium Chloride Carbon Dioxide Creatinine 0.2 L Glucose 107 H POC Glucose Calcium 8.1 L Phosphorus Ferritin AST 87 H Lactate Dehydrogenase C-Reactive Protein Total Protein 5.1 L Albumin 2.4 L Lipase Vitamin B12 Valproic Acid Coronavirus (PCR) 04/29/21 04/30/21 04/30/21 04:00 06:20 06:20 WBC RBC Hgb Hct MCV MCHC RDW Lymph % (Auto) [place] % (Auto) Lymph # (Auto) [place] # (Auto) Seg Neutrophils % Seg Neuts % (Manual) Lymphocytes % (Manual) Monocytes % (Manual) Seg Neutrophils # Seg Neutrophils # Man Lymphocytes # (Manual) Monocytes # (Manual) D-Dimer 690.97 H Sodium 148 H Potassium 3.0 L Chloride 110.2 H Carbon Dioxide Creatinine 0.2 L Glucose 130 H POC Glucose Calcium Phosphorus Ferritin 930.1 H AST 63 H Lactate Dehydrogenase C-Reactive Protein Total Protein 5.6 L Albumin 2.4 L Lipase Vitamin B12 Valproic Acid Coronavirus (PCR) 04/30/21 04/30/21 04/30/21 06:20 08:01 08:41 WBC RBC Hgb Hct MCV MCHC RDW Lymph % (Auto) [place] % (Auto) Lymph # (Auto) [place] # (Auto) Seg Neutrophils % Seg Neuts % (Manual) Lymphocytes % (Manual) Monocytes % (Manual) Seg Neutrophils # Seg Neutrophils # Man Lymphocytes # (Manual) Monocytes # (Manual) D-Dimer Sodium 151 H Potassium 3.3 L Chloride 110.3 H Carbon Dioxide Creatinine 0.3 L Glucose 119 H POC Glucose 119 H Calcium Phosphorus Ferritin AST Lactate Dehydrogenase 423 H C-Reactive Protein 8.90 H Total Protein Albumin Lipase Vitamin B12 Valproic Acid Coronavirus (PCR) 04/30/21 05/01/21 05/01/21 11:14 07:29 07:29 WBC 21.4 H RBC Hgb Hct MCV MCHC RDW Lymph % (Auto) [place] % (Auto) Lymph # (Auto) [place] # (Auto) Seg Neutrophils % Seg Neuts % (Manual) Lymphocytes % (Manual) Monocytes % (Manual) Seg Neutrophils # Seg Neutrophils # Man Lymphocytes # (Manual) Monocytes # (Manual) D-Dimer Sodium 150 H Potassium 2.7 L* Chloride 111.2 H Carbon Dioxide Creatinine 0.3 L Glucose 162 H POC Glucose 113 H Calcium Phosphorus Ferritin AST Lactate Dehydrogenase C-Reactive Protein Total Protein Albumin Lipase Vitamin B12 Valproic Acid Coronavirus (PCR) 05/01/21 05/01/21 05/01/21 07:33 11:28 17:54 WBC RBC Hgb Hct MCV MCHC RDW Lymph % (Auto) [place] % (Auto) Lymph # (Auto) [place] # (Auto) Seg Neutrophils % Seg Neuts % (Manual) Lymphocytes % (Manual) Monocytes % (Manual) Seg Neutrophils # Seg Neutrophils # Man Lymphocytes # (Manual) Monocytes # (Manual) D-Dimer Sodium Potassium Chloride Carbon Dioxide Creatinine Glucose POC Glucose 147 H 152 H 165 H Calcium Phosphorus Ferritin AST Lactate Dehydrogenase C-Reactive Protein Total Protein Albumin Lipase Vitamin B12 Valproic Acid Coronavirus (PCR) 05/02/21 05/02/21 05/02/21 00:23 05:28 05:28 WBC 18.9 H RBC Hgb Hct MCV 95 H MCHC 31 L RDW Lymph % (Auto) [place] % (Auto) Lymph # (Auto) [place] # (Auto) Seg Neutrophils % Seg Neuts % (Manual) Lymphocytes % (Manual) Monocytes % (Manual) Seg Neutrophils # Seg Neutrophils # Man Lymphocytes # (Manual) Monocytes # (Manual) D-Dimer Sodium 151 H Potassium Chloride 111.4 H Carbon Dioxide Creatinine 0.3 L Glucose 132 H POC Glucose 160 H Calcium 8.3 L Phosphorus Ferritin AST Lactate Dehydrogenase C-Reactive Protein Total Protein Albumin Lipase Vitamin B12 Valproic Acid Coronavirus (PCR) 05/02/21 05/02/21 05/02/21 07:42 11:31 16:39 WBC RBC Hgb Hct MCV MCHC RDW Lymph % (Auto) [place] % (Auto) Lymph # (Auto) [place] # (Auto) Seg Neutrophils % Seg Neuts % (Manual) Lymphocytes % (Manual) Monocytes % (Manual) Seg Neutrophils # Seg Neutrophils # Man Lymphocytes # (Manual) Monocytes # (Manual) D-Dimer Sodium Potassium Chloride Carbon Dioxide Creatinine Glucose POC Glucose 170 H 131 H 140 H Calcium Phosphorus Ferritin AST Lactate Dehydrogenase C-Reactive Protein Total Protein Albumin Lipase Vitamin B12 Valproic Acid Coronavirus (PCR) 05/02/21 05/03/21 05/03/21 22:42 06:11 09:20 WBC 16.2 H RBC 3.51 L Hgb 10.5 L Hct 33.1 L MCV MCHC RDW 15.4 H Lymph % (Auto) [place] % (Auto) Lymph # (Auto) [place] # (Auto) Seg Neutrophils % Seg Neuts % (Manual) Lymphocytes % (Manual) Monocytes % (Manual) Seg Neutrophils # Seg Neutrophils # Man Lymphocytes # (Manual) Monocytes # (Manual) D-Dimer Sodium Potassium Chloride Carbon Dioxide Creatinine Glucose POC Glucose 107 H 108 H Calcium Phosphorus Ferritin AST Lactate Dehydrogenase C-Reactive Protein Total Protein Albumin Lipase Vitamin B12 Valproic Acid Coronavirus (PCR) 05/03/21 05/03/21 05/03/21 09:20 11:01 17:33 WBC RBC Hgb Hct MCV MCHC RDW Lymph % (Auto) [place] % (Auto) Lymph # (Auto) [place] # (Auto) Seg Neutrophils % Seg Neuts % (Manual) Lymphocytes % (Manual) Monocytes % (Manual) Seg Neutrophils # Seg Neutrophils # Man Lymphocytes # (Manual) Monocytes # (Manual) D-Dimer Sodium 149 H Potassium 3.5 L Chloride 110.0 H Carbon Dioxide Creatinine 0.3 L Glucose 113 H POC Glucose 146 H 118 H Calcium 8.0 L Phosphorus Ferritin AST Lactate Dehydrogenase C-Reactive Protein Total Protein Albumin Lipase Vitamin B12 Valproic Acid Coronavirus (PCR) 05/04/21 05/04/21 05/04/21 05:51 13:28 13:28 WBC RBC Hgb Hct MCV MCHC RDW Lymph % (Auto) [place] % (Auto) Lymph # (Auto) [place] # (Auto) Seg Neutrophils % Seg Neuts % (Manual) Lymphocytes % (Manual) Monocytes % (Manual) Seg Neutrophils # Seg Neutrophils # Man Lymphocytes # (Manual) Monocytes # (Manual) D-Dimer Sodium Potassium Chloride Carbon Dioxide Creatinine Glucose POC Glucose 143 H Calcium Phosphorus Ferritin AST Lactate Dehydrogenase C-Reactive Protein 15.40 H Total Protein Albumin Lipase Vitamin B12 Valproic Acid 10.9 L Coronavirus (PCR) 05/04/21 05/04/21 17:30 23:53 WBC RBC Hgb Hct MCV MCHC RDW Lymph % (Auto) [place] % (Auto) Lymph # (Auto) [place] # (Auto) Seg Neutrophils % Seg Neuts % (Manual) Lymphocytes % (Manual) Monocytes % (Manual) Seg Neutrophils # Seg Neutrophils # Man Lymphocytes # (Manual) Monocytes # (Manual) D-Dimer Sodium Potassium Chloride Carbon Dioxide Creatinine Glucose POC Glucose 110 H 128 H Calcium Phosphorus Ferritin AST Lactate Dehydrogenase C-Reactive Protein Total Protein Albumin Lipase Vitamin B12 Valproic Acid Coronavirus (PCR)
--- NOTE | 2021-05-05 08:45 | Progress Note ---
Assessment and Plan Assessment and plan: --Acute metabolic encephalopathy -CT head negative for acute abnormality -Baseline patient able to perform ADLs -Could be secondary to COVID infection -Neurology consulted, no recommendations at this time -MRI pending Guardian authorization -will continue to monitor --COVID-19 pneumonia; Continue empiric antibiotics, assessed more than 90% Home O2 evaluation prior to discharge Follow cultures, home O2 evaluation --Acute hypoxic respiratory failure Probably due to mucus plugging, COVID-19 pneumonia -currently on supplemental O2, will wean as tolerated -s/p dexamethasone x 10 days & remdesivir 5 days -CTA ordered, negative for PE but shows LLL atelectasis likely 2/2 to mucus plugging -ID following, assistance appreciated -continue levaquin, pulmonary toilet and deep suctioning -Pulmonology following, aggressive chest PT Prone positioning as tolerated --Leukocytosis Probably secondary to steroids and underlying disease process Treat the underlying cause, titrate Solu-Medrol dose decreased --Aspiration precautions Speech therapy evaluation recommended PEG tube placement GI consult for PEG tube placement, will perform after approval by Guardian --Hypokalemia Closely monitor electrolytes Check magnesium --Hypernatremia 250cc q6h free water flushes will continue to monitor likely 2/2 to lack of oral intake --Severe protein calorie malnutrition BMI 20.3; albumin 2.4 Nutrition consulted continue tube feeding Considering PEG tube placement per GI --Social issues Patient is a herrera of [facility], contact is Ms. Mattson to discuss clinical updates/consent for procedures ([phone]) We will closely monitor the patient and adjust management as needed Plan of care reviewed with the patient and his nurse Disposition Plan: Continue medical management Patient needs PEG placement, CM to assist with obtaining consent from the herrera of the [facility] for PEG Moderate the [facility] has given consent for the procedures PEG and MRI We will closely monitor History Interval history: I have have seen and examined the patient at the bedside Isolation precautions PPE protocol strictly followed per COVID-19 guidelines Patient is on high flow nasal cannula oxygen Mild shortness of breath Hospitalist Physical - Constitutional Vitals: Temp Pulse Resp BP Pulse Ox 99.7 F H 134 H 16 107/63 97 05/05/21 04:26 05/05/21 04:26 05/05/21 04:26 05/05/21 04:26 05/05/21 05:23 General appearance: Present: no acute distress, cachectic, other (Lying in bed, on side, not cooperating or responding) - EENT Eyes: Present: PERRL, EOM intact - Neck Neck: Present: supple, normal ROM - Respiratory Respiratory effort: normal Respiratory: bilateral: diminished, rhonchi, negative: rales, wheezing - Cardiovascular Rhythm: regular Heart Sounds: Present: S1 & S2 - Extremities Extremities: no ischemia, No edema - Abdominal General gastrointestinal: soft, non-tender, non-distended, normal bowel sounds - Integumentary Integumentary: Present: clear, warm - Psychiatric Psychiatric: appropriate mood/affect, cooperative - Neurologic Neurologic: CNII-XII intact, moves all extremities HEART Score - HEART Score Age: 45-65 Risk factors: 1-2 risk factors - Critical Actions Critical Actions: 0-3 pts:0.9-1.7%risk of adverse cardiac event.Candidate for discharge Results - Labs CBC & Chem 7: 05/03/21 09:20 05/03/21 09:20 Labs: Laboratory Last Values WBC 16.2 K/mm3 (4.5-11.0) H 05/03/21 09:20 RBC 3.51 M/mm3 (3.65-5.03) L 05/03/21 09:20 Hgb 10.5 gm/dl (11.8-15.2) L 05/03/21 09:20 Hct 33.1 % (35.5-45.6) L 05/03/21 09:20 MCV 94 fl (84-94) 05/03/21 09:20 MCH 30 pg (28-32) 05/03/21 09:20 MCHC 32 % (32-34) 05/03/21 09:20 RDW 15.4 % (13.2-15.2) H 05/03/21 09:20 Plt Count 203 K/mm3 (140-440) 05/03/21 09:20 Lymph % (Auto) 5.9 % (13.4-35.0) L 04/23/21 09:24 Major % (Auto) Feed In Worker 04/25/21 06:24 Eos % (Auto) 0.0 % (0.0-4.3) 04/23/21 09:24 Baso % (Auto) 0.0 % (0.0-1.8) 04/23/21 09:24 Lymph # (Auto) 0.5 K/mm3 (1.2-5.4) L 04/23/21 09:24 Major # (Auto) 0.8 K/mm3 (0.0-0.8) 04/23/21 09:24 Eos # (Auto) 0.0 K/mm3 (0.0-0.4) 04/23/21 09:24 Baso # (Auto) 0.0 K/mm3 (0.0-0.1) 04/23/21 09:24 Add Manual Diff Complete 04/28/21 08:03 Total Counted 100 04/28/21 08:03 Seg Neutrophils % Feed In Worker 04/28/21 08:03 Seg Neuts % (Manual) 94.0 % (40.0-70.0) H 04/28/21 08:03 Band Neutrophils % 1.0 % 04/28/21 08:03 Lymphocytes % (Manual) 1.0 % (13.4-35.0) L 04/28/21 08:03 Monocytes % (Manual) 4.0 % (0.0-7.3) 04/28/21 08:03 Myelocytes % 1.0 % 04/25/21 06:24 Nucleated RBC % Not Reportable 04/28/21 08:03 Seg Neutrophils # 7.2 K/mm3 (1.8-7.7) 04/23/21 09:24 Seg Neutrophils # Man 18.6 K/mm3 (1.8-7.7) H 04/28/21 08:03 Band Neutrophils # 0.2 K/mm3 04/28/21 08:03 Lymphocytes # (Manual) 0.2 K/mm3 (1.2-5.4) L 04/28/21 08:03 Abs React Lymphs (Man) 0.0 K/mm3 04/28/21 08:03 Monocytes # (Manual) 0.8 K/mm3 (0.0-0.8) 04/28/21 08:03 Eosinophils # (Manual) 0.0 K/mm3 (0.0-0.4) 04/28/21 08:03 Basophils # (Manual) 0.0 K/mm3 (0.0-0.1) 04/28/21 08:03 Metamyelocytes # 0.0 K/mm3 04/28/21 08:03 Myelocytes # 0.0 K/mm3 04/28/21 08:03 Promyelocytes # 0.0 K/mm3 04/28/21 08:03 Blast Cells # 0.0 K/mm3 04/28/21 08:03 WBC Morphology Not Reportable 04/28/21 08:03 Hypersegmented Neuts Not Reportable 04/28/21 08:03 Hyposegmented Neuts Not Reportable 04/28/21 08:03 Hypogranular Neuts Not Reportable 04/28/21 08:03 Smudge Cells Not Reportable 04/28/21 08:03 Toxic Granulation Not Reportable 04/28/21 08:03 Toxic Vacuolation Not Reportable 04/28/21 08:03 Dohle Bodies Not Reportable 04/28/21 08:03 Pelger-Huet Anomaly Not Reportable 04/28/21 08:03 Jeannette Rods Not Reportable 04/28/21 08:03 Platelet Estimate Consistent w auto 04/28/21 08:03 Clumped Platelets Not Reportable 04/28/21 08:03 Plt Clumps, EDTA Not Reportable 04/28/21 08:03 Large Platelets Not Reportable 04/28/21 08:03 Giant Platelets Not Reportable 04/28/21 08:03 Platelet Satelliting Not Reportable 04/28/21 08:03 Plt Morphology Comment Not Reportable 04/28/21 08:03 RBC Morphology Not Reportable 04/28/21 08:03 Dimorphic RBCs Not Reportable 04/28/21 08:03 Polychromasia Not Reportable 04/28/21 08:03 Hypochromasia Not Reportable 04/28/21 08:03 Poikilocytosis 1+ 04/28/21 08:03 Anisocytosis Not Reportable 04/28/21 08:03 Microcytosis Not Reportable 04/28/21 08:03 Macrocytosis Not Reportable 04/28/21 08:03 Spherocytes Not Reportable 04/28/21 08:03 Pappenheimer Bodies Not Reportable 04/28/21 08:03 Sickle Cells Not Reportable 04/28/21 08:03 Target Cells Not Reportable 04/28/21 08:03 Tear Drop Cells Not Reportable 04/28/21 08:03 Ovalocytes Not Reportable 04/28/21 08:03 Helmet Cells Not Reportable 04/28/21 08:03 [place] Bodies Not Reportable 04/28/21 08:03 [place] Rings Not Reportable 04/28/21 08:03 [place] Cells 1+ 04/28/21 08:03 Bite Cells Not Reportable 04/28/21 08:03 Crenated Cell Not Reportable 04/28/21 08:03 Elliptocytes Not Reportable 04/28/21 08:03 Acanthocytes (Spur) Not Reportable 04/28/21 08:03 Rouleaux Not Reportable 04/28/21 08:03 Hemoglobin C Crystals Not Reportable 04/28/21 08:03 Schistocytes Not Reportable 04/28/21 08:03 Malaria parasites Not Reportable 04/28/21 08:03 ESR 60 mm/Hr (0-20) 05/04/21 13:28 Steve Bodies Not Reportable 04/28/21 08:03 Hem Pathologist Commnt No 04/28/21 08:03 APTT 32.0 Sec. (24.2-36.6) 04/21/21 18:02 D-Dimer 690.97 ng/mlDDU (0-234) H 04/30/21 06:20 Sodium 149 mmol/L (137-145) H 05/03/21 09:20 Potassium 3.5 mmol/L (3.6-5.0) L 05/03/21 09:20 Chloride 110.0 mmol/L (98-107) H 05/03/21 09:20 Carbon Dioxide 27 mmol/L (22-30) 05/03/21 09:20 Anion Gap 16 mmol/L 05/03/21 09:20 BUN 16 mg/dL (9-20) 05/03/21 09:20 Creatinine 0.3 mg/dL (0.8-1.3) L 05/03/21 09:20 Estimated GFR > 60 ml/min 05/03/21 09:20 BUN/Creatinine Ratio 53 % 05/03/21 09:20 Glucose 113 mg/dL (75-100) H 05/03/21 09:20 POC Glucose 128 mg/dL (70-105) H 05/04/21 23:53 Lactic Acid 1.20 mmol/L (0.7-2.0) 04/21/21 20:26 Calcium 8.0 mg/dL (8.4-10.2) L 05/03/21 09:20 Phosphorus 2.30 mg/dL (2.5-4.5) L 04/23/21 09:24 Magnesium 1.80 mg/dL (1.7-2.3) 04/23/21 09:24 Ferritin 930.1 ng/mL (30.0-300.0) H 04/30/21 06:20 Total Bilirubin 0.70 mg/dL (0.1-1.2) 04/29/21 04:00 AST 63 units/L (5-40) H 04/29/21 04:00 ALT 37 units/L (7-56) 04/29/21 04:00 Alkaline Phosphatase 58 units/L (35-129) 04/29/21 04:00 Lactate Dehydrogenase 423 units/L (91-180) H 04/30/21 06:20 C-Reactive Protein 15.40 mg/dL (0.00-1.30) H 05/04/21 13:28 Total Protein 5.6 g/dL (6.3-8.2) L 04/29/21 04:00 Albumin 2.4 g/dL (3.9-5) L 04/29/21 04:00 Albumin/Globulin Ratio 0.8 % 04/29/21 04:00 Lipase 7 units/L (13-60) L 04/21/21 16:08 Vitamin B12 1039 pg/mL (211-911) H 04/24/21 07:56 Procalcitonin 0.73 ng/mL (<0.15) 04/22/21 00:20 TSH 1.330 mlU/mL (0.270-4.200) 04/24/21 07:56 Free T4 1.03 ng/dL (0.76-1.46) 04/24/21 07:56 Urine Color [place] (Yellow) 04/21/21 Unknown Urine Turbidity Clear (Clear) 04/21/21 Unknown Urine pH 5.0 (5.0-7.0) 04/21/21 Unknown Ur Specific [place] 1.027 (1.003-1.030) 04/21/21 Unknown Urine Protein 100 mg/dl mg/dL (Negative) 04/21/21 Unknown Urine Glucose (UA) Neg mg/dL (Negative) 04/21/21 Unknown Urine Ketones 20 mg/dL (Negative) 04/21/21 Unknown Urine Blood Mod (Negative) 04/21/21 Unknown Urine Nitrite Neg (Negative) 04/21/21 Unknown Urine Bilirubin Neg (Negative) 04/21/21 Unknown Urine Urobilinogen 4.0 mg/dL (<2.0) 04/21/21 Unknown Ur Leukocyte Esterase Neg (Negative) 04/21/21 Unknown Urine WBC (Auto) < 1.0 /HPF (0.0-6.0) 04/21/21 Unknown Urine RBC (Auto) < 1.0 /HPF (0.0-6.0) 04/21/21 Unknown Urine Mucus Few /HPF 04/21/21 Unknown Valproic Acid 10.9 ug/mL (50-100) L 05/04/21 13:28 Coronavirus (PCR) Positive (Negative) A 04/22/21 Unknown [place]/IV: Voiding Method Incontinent Active Medications - Current Medications Current Medications: Generic Name Dose Route Start Last Admin Trade Name Freq PRN Reason Stop Dose Admin Acetaminophen 650 mg 04/21/21 22:31 04/23/21 12:43 Acetaminophen 325 Mg Tab PO 650 mg Q4H PRN Administration Pain MILD(1-3)/Fever >100.5/RAY Albuterol 2.5 mg 05/02/21 14:00 05/05/21 01:25 Albuterol 2.5 Mg/3 Ml Nebu IH Not Given Q6HRT [facility] Enoxaparin Sodium 40 mg 04/22/21 10:00 05/04/21 09:22 Enoxaparin 40 Mg/0.4 Ml Inj SUB-Q 40 mg QDAY EDDIE Administration Famotidine 20 mg 04/22/21 10:00 05/04/21 21:48 Famotidine 20 Mg Tab PO 20 mg BID EDDIE Administration Glycopyrrolate 2 mg 05/01/21 14:00 05/04/21 21:47 Glycopyrrolate 2 Mg Tab PO 2 mg BID EDDIE Administration Guaifenesin 200 mg 04/24/21 08:28 05/04/21 04:48 Guaifenesin 100 Mg/5 Ml Oral Liqd PO 200 mg Q4H PRN Administration Cough Levofloxacin/Dextrose 500 mg in 100 mls @ 100 mls/hr 05/02/21 13:00 05/04/21 12:45 Levaquin 500mg/100ml IV 05/06/21 13:59 100 mls/hr Q24H EDDIE Administration Protocol Metoclopramide HCl 10 mg 04/21/21 22:31 Metoclopramide 10 Mg/2 Ml Inj IV Q6H PRN Nausea And Vomiting Metoprolol Tartrate 12.5 mg 05/04/21 22:00 05/04/21 21:49 Metoprolol Tartrate 25 Mg Tab PO 12.5 mg BID EDDIE Administration Ondansetron HCl 4 mg 04/21/21 22:31 Ondansetron 4 Mg/2 Ml Inj IV Q8H PRN Nausea And Vomiting Oxycodone/Acetaminophen 1 tab 04/21/21 22:31 04/22/21 22:35 Oxycodone /Acetaminophen 5-325mg Tab PO 1 tab Q6H PRN Administration Pain, Moderate (4-6) Sodium Chloride 10 ml 04/22/21 10:00 05/04/21 21:49 Sodium Chloride 0.9% 10 Ml Flush Syringe IV 10 ml BID EDDIE Administration Sodium Chloride 10 ml 04/21/21 22:31 Sodium Chloride 0.9% 10 Ml Flush Syringe IV PRN PRN LINE FLUSH Valproic Acid 250 mg 05/01/21 22:00 05/04/21 21:50 Valproic Acid 250 Mg/5 Ml Oral Liqd PO 250 mg QHS EDDIE Administration Nutrition/Malnutrition Assess - Dietary Evaluation Nutrition/Malnutrition Findings: Nutrition Notes Start: 04/22/21 18:07 Freq: Status: Active Protocol: Document 04/30/21 09:54 RICKY (Rec: 04/30/21 10:05 RICKY [id number]) Nutrition Notes Initial or Follow up Reassessment Current Diagnosis Respiratory Failure, Malnutrition Other Pertinent Diagnosis COVID-19, Pneumonia, Ac Encephalopathy, Leukocytosis, Hypokalemia. Current Diet NPO (since 04/26 11:10), TF- Jevity 1.2 Louie @ 56 ml/hr ( since B 05/01). Labs/Tests 04/30: Na 151, K 3.3, Cl 110.3 , Crea 0.3, Glu 119, Ferritin 930.1, LacDH 423, C-RP 8.9, Tpro 5.6, Alb 2.4. Pertinent Medications 04/30: Nutritionally unremarkable. Height 6 ft Weight 67.5 kg [place] Body Weight (kg) 80.90 BMI 20.2 Weight change and time frame 0.3 Kg body weight loss in 3 days reported. Weight Status Appropriate Subjective/Other Information RD consult for routine F/U on ONLINE SERVICES MANAGER evaluation. MD request write/manage TF. Pt did not cooperate with ONLINE SERVICES MANAGER and was not evaluated. ONLINE SERVICES MANAGER recommends PEG tube placement. PT does not eat, but seems to have no swallowing problems. Pt appears to have "some sort of chronic underlying mental development process", according to MD. Pt is [place] of state, PEG tube placement needs to be authorized by Guardian. Percent of energy/protein needs met: Pt currently on NPO. Prescribed Jevity 1.2 Louie @ 56 ml/hr provides for energy/ protein needs (1,600 Kcal/74 g ) during LOS, 100% Kcal; 90% AA. Burn Absent Trauma Absent GI Symptoms None Food Allergy No Skin Integrity/Comment Clear, warm, dry. Current % PO Negligible #1 Nutrition Diagnosis Inadequate protein-energy intake As Evidenced by Signs and Symptoms MD request for write/manage TF . Diagnosis Progress(for reassessment Worsened documentation) Is patient on ventilator? No Is Patient Ambulatory and/or Out of Bed No REE-([facility]-confined to bed) 1808.940 Kcal/Kg value to use for calculation 24 Approximate Energy Requirements Using 1620 kcal/Kg Calculation Used for Recommendations Kcal/kg Additional Notes Protein: 1.2-1.5 g/Kg; 82-102 g/day. Fluids: 1 ml/Kcal, or as per MD. Nutrition Intervention Change Diet Order: Continue NPO as per MD. Nutrition Support: Start Jevity 1.2 Louie @ 56 ml/ hr. Flush: 90 ml water Q 4 hr. Kcal 1,600 Protein (gm) 74 Carbohydrates (gm) 226 Fat (gm) 52 Fluid (mL) 1,076 Fiber (gm) 24 % RDI: 100% Kcal; 90% AA. Goal #1 Provide at least 75% of energy /protein needs through Enteral Feeding during LOS. Follow-Up By: 05/04/21 Additional Comments Continue monitoring TF tolerance and BM. Wait for MD decision regarding PEG tube placement.
[2021-05-05] MEDS: METOPROLOL TARTRATE 25 MG TAB PO SCH ×2 (09:55→21:29)
[2021-05-05] MEDS: GLYCOPYRROLATE 2 MG TAB PO SCH ×2 (09:55→21:24)
[2021-05-05] MEDS: FAMOTIDINE 20 MG TAB PO SCH ×2 (09:55→21:31)
[2021-05-05] MEDS: ENOXAPARIN 40 MG/0.4 ML INJ SUB-Q SCH (09:55)
--- NOTE | 2021-05-05 11:46 | Progress Note ---
Assessment and Plan Assessment and Plan Assessment and plan: #Acute metabolic encephalopathy and or infection , failure to thrive with significant muscle wasting and weight loss ? -CT head negative for acute abnormality -Baseline patient able to perform ADLs -Could be secondary to COVID infection, -MRI pending Guardian authorization - ID evalute -Hydration, -EEG is pending -hold valproic acid for now #COVID-19 pneumonia #Acute hypoxic respiratory failure #Mucus plugging -currently on supplemental O2, will wean as tolerated -s/p dexamethasone x 10 days & remdesivir -CTA ordered, negative for PE but shows LLL atelectasis likely 2/2 to mucus plugging -ID following, assistance appreciated -continue levaquin, pulmonary toilet and deep suctioning -Pulmonology consulted, assistance appreciated #Leukocytosis -BCx 04/28 NGTD -downtrending -likely 2/2 to steroids vs PNA #Aspiration risk -speech therapy evaluation recommended PEG tube placement -GI consult for PEG tube placement, will perform after approval by Guardian #Hypokalemia -will continue to replete monitor #Hypernatremia -250cc q6h free water flushes -will continue to monitor -likely 2/2 to lack of oral intake #Severe protein calorie malnutrition -BMI 20.3; albumin 2.4 -Nutrition consulted -continue tube feeding #Social issues -Patient is a herrera of [employer], contact is Ms. Mattson to discuss clinical updates/consent for procedures ([phone]) prognosis is quarded will follow Subjective Date of service: 05/05/21 Principal diagnosis: Encephalopathy,COVID-19 Interval history: status is unchanged , unresponsive to sternal rub just moaning on Abs and tube feeding febril C-reactive #15.4 followed by ID EEG is pending MRI not done valp. level#10 Objective - Vital Sign Vital Signs - 12hr 05/05/21 05/05/21 05/05/21 04:26 05:23 09:07 Temperature 99.7 F H Pulse Rate 134 H Pulse Rate [ 115 H Anterior Bilateral Throughout] Respiratory 16 Rate Respiratory 18 Rate [Anterior Bilateral Throughout] Blood Pressure 107/63 Blood Pressure [Right] O2 Sat by Pulse 97 97 Oximetry 05/05/21 05/05/21 09:09 11:28 Temperature 99.6 F Pulse Rate 62 Pulse Rate [ Anterior Bilateral Throughout] Respiratory 32 H Rate Respiratory Rate [Anterior Bilateral Throughout] Blood Pressure Blood Pressure 107/55 [Right] O2 Sat by Pulse 97 94 Oximetry - General Apperance Constitutional: comfortable - EENT EENT: PERRL, mucous membranes moist - Respiratory Respiratory: chest non-tender, lungs clear, rales, rhonchi - Cardiovascular Cardiovascular: regular rate, normal S1, normal S2 Extremities: no peripheral edema bilat, no clubbing, cyanosis - Gastrointestinal Gastrointestinal: normoactive bowel sounds - Integumentary Integumentary: normal - Neurologic Cranial nerve examination: PERRL, EOMI, intact Speech examination: other (unresponsive) Detailed motor examination: other (slight withdrawal to pain stimuli) - Psychiatric Psychiatric: other (pupils reactive EOMI , no facial asymmetry , bilateral temporalis wasting) - Laboratory Findings CBC and BMP: 05/03/21 09:20 05/03/21 09:20 Abnormal Lab Findings: Abnormal Labs 04/21/21 04/21/21 04/22/21 16:08 16:08 00:20 WBC RBC Hgb Hct MCV 96 H MCHC RDW Lymph % (Auto) 8.5 L [place] % (Auto) 15.8 H Lymph # (Auto) 0.9 L [place] # (Auto) 1.7 H Seg Neutrophils % 75.6 H Seg Neuts % (Manual) Lymphocytes % (Manual) Monocytes % (Manual) Seg Neutrophils # 8.0 H Seg Neutrophils # Man Lymphocytes # (Manual) Monocytes # (Manual) D-Dimer 621.94 H Sodium Potassium Chloride Carbon Dioxide Creatinine 0.6 L Glucose 107 H POC Glucose Calcium 8.3 L Phosphorus Ferritin AST 136 H Lactate Dehydrogenase C-Reactive Protein Total Protein 6.2 L Albumin 3.0 L Lipase 7 L Vitamin B12 Valproic Acid Coronavirus (PCR) 04/22/21 04/22/21 04/22/21 00:20 00:20 06:51 WBC RBC Hgb Hct MCV 95 H MCHC RDW Lymph % (Auto) [place] % (Auto) Lymph # (Auto) [place] # (Auto) Seg Neutrophils % Seg Neuts % (Manual) 91.0 H Lymphocytes % (Manual) 1.0 L Monocytes % (Manual) Seg Neutrophils # Seg Neutrophils # Man Lymphocytes # (Manual) 0.1 L Monocytes # (Manual) D-Dimer Sodium Potassium Chloride Carbon Dioxide Creatinine Glucose POC Glucose Calcium Phosphorus Ferritin 427.3 H AST Lactate Dehydrogenase 379 H C-Reactive Protein 9.20 H Total Protein Albumin Lipase Vitamin B12 Valproic Acid Coronavirus (PCR) 04/22/21 04/22/21 04/23/21 06:51 Unknown 09:24 WBC RBC Hgb Hct MCV 96 H MCHC RDW Lymph % (Auto) 5.9 L [place] % (Auto) 9.3 H Lymph # (Auto) 0.5 L [place] # (Auto) Seg Neutrophils % 84.8 H Seg Neuts % (Manual) Lymphocytes % (Manual) Monocytes % (Manual) Seg Neutrophils # Seg Neutrophils # Man Lymphocytes # (Manual) Monocytes # (Manual) D-Dimer Sodium Potassium Chloride Carbon Dioxide Creatinine 0.4 L Glucose 114 H POC Glucose Calcium 8.0 L Phosphorus Ferritin AST 116 H Lactate Dehydrogenase C-Reactive Protein Total Protein 5.9 L Albumin 3.0 L Lipase Vitamin B12 Valproic Acid Coronavirus (PCR) Positive A 04/23/21 04/23/21 04/24/21 09:24 22:38 07:56 WBC RBC Hgb Hct MCV MCHC RDW Lymph % (Auto) [place] % (Auto) Lymph # (Auto) [place] # (Auto) Seg Neutrophils % Seg Neuts % (Manual) Lymphocytes % (Manual) Monocytes % (Manual) Seg Neutrophils # Seg Neutrophils # Man Lymphocytes # (Manual) Monocytes # (Manual) D-Dimer Sodium Potassium 3.5 L Chloride Carbon Dioxide Creatinine 0.5 L Glucose 102 H POC Glucose 111 H Calcium 8.3 L Phosphorus 2.30 L Ferritin AST Lactate Dehydrogenase C-Reactive Protein Total Protein Albumin Lipase Vitamin B12 1039 H Valproic Acid Coronavirus (PCR) 04/24/21 04/24/21 04/24/21 07:56 07:56 21:37 WBC RBC Hgb Hct MCV 95 H MCHC RDW Lymph % (Auto) [place] % (Auto) Lymph # (Auto) [place] # (Auto) Seg Neutrophils % Seg Neuts % (Manual) 80.0 H Lymphocytes % (Manual) 10.0 L Monocytes % (Manual) 10.0 H Seg Neutrophils # Seg Neutrophils # Man Lymphocytes # (Manual) 0.7 L Monocytes # (Manual) D-Dimer Sodium Potassium Chloride Carbon Dioxide Creatinine 0.4 L Glucose POC Glucose 111 H Calcium Phosphorus Ferritin AST Lactate Dehydrogenase C-Reactive Protein Total Protein Albumin Lipase Vitamin B12 Valproic Acid Coronavirus (PCR) 01/05/1604/25/21 04/25/21 06:24 06:24 23:13 WBC RBC Hgb Hct 46.6 H MCV MCHC RDW Lymph % (Auto) [place] % (Auto) Lymph # (Auto) [place] # (Auto) Seg Neutrophils % Seg Neuts % (Manual) 83.0 H Lymphocytes % (Manual) 1.0 L Monocytes % (Manual) 9.0 H Seg Neutrophils # Seg Neutrophils # Man Lymphocytes # (Manual) 0.1 L Monocytes # (Manual) D-Dimer Sodium 136 L 134 L Potassium 3.3 L Chloride Carbon Dioxide 21 L Creatinine 0.3 L 0.4 L Glucose 115 H POC Glucose Calcium 7.7 L Phosphorus Ferritin AST 104 H Lactate Dehydrogenase C-Reactive Protein Total Protein 6.1 L Albumin 2.6 L Lipase Vitamin B12 Valproic Acid Coronavirus (PCR) 04/26/21 04/27/21 04/27/21 06:29 06:31 06:31 WBC 17.6 H RBC Hgb Hct MCV MCHC RDW Lymph % (Auto) [place] % (Auto) Lymph # (Auto) [place] # (Auto) Seg Neutrophils % Seg Neuts % (Manual) 87.0 H Lymphocytes % (Manual) 5.0 L Monocytes % (Manual) Seg Neutrophils # Seg Neutrophils # Man 15.3 H Lymphocytes # (Manual) 0.9 L Monocytes # (Manual) 0.9 H D-Dimer Sodium Potassium 3.4 L Chloride Carbon Dioxide Creatinine 0.5 L 0.4 L Glucose 112 H 106 H POC Glucose Calcium 8.0 L Phosphorus Ferritin AST 114 H 110 H Lactate Dehydrogenase C-Reactive Protein Total Protein 6.2 L Albumin 2.9 L 2.6 L Lipase Vitamin B12 Valproic Acid Coronavirus (PCR) 04/28/21 04/28/21 04/29/21 08:03 08:03 04:00 WBC 19.8 H 14.0 H RBC Hgb Hct MCV 95 H MCHC RDW Lymph % (Auto) [place] % (Auto) Lymph # (Auto) [place] # (Auto) Seg Neutrophils % Seg Neuts % (Manual) 94.0 H Lymphocytes % (Manual) 1.0 L Monocytes % (Manual) Seg Neutrophils # Seg Neutrophils # Man 18.6 H Lymphocytes # (Manual) 0.2 L Monocytes # (Manual) D-Dimer Sodium Potassium Chloride Carbon Dioxide Creatinine 0.2 L Glucose 107 H POC Glucose Calcium 8.1 L Phosphorus Ferritin AST 87 H Lactate Dehydrogenase C-Reactive Protein Total Protein 5.1 L Albumin 2.4 L Lipase Vitamin B12 Valproic Acid Coronavirus (PCR) 04/29/21 04/30/21 04/30/21 04:00 06:20 06:20 WBC RBC Hgb Hct MCV MCHC RDW Lymph % (Auto) [place] % (Auto) Lymph # (Auto) [place] # (Auto) Seg Neutrophils % Seg Neuts % (Manual) Lymphocytes % (Manual) Monocytes % (Manual) Seg Neutrophils # Seg Neutrophils # Man Lymphocytes # (Manual) Monocytes # (Manual) D-Dimer 690.97 H Sodium 148 H Potassium 3.0 L Chloride 110.2 H Carbon Dioxide Creatinine 0.2 L Glucose 130 H POC Glucose Calcium Phosphorus Ferritin 930.1 H AST 63 H Lactate Dehydrogenase C-Reactive Protein Total Protein 5.6 L Albumin 2.4 L Lipase Vitamin B12 Valproic Acid Coronavirus (PCR) 04/30/21 04/30/21 04/30/21 06:20 08:01 08:41 WBC RBC Hgb Hct MCV MCHC RDW Lymph % (Auto) [place] % (Auto) Lymph # (Auto) [place] # (Auto) Seg Neutrophils % Seg Neuts % (Manual) Lymphocytes % (Manual) Monocytes % (Manual) Seg Neutrophils # Seg Neutrophils # Man Lymphocytes # (Manual) Monocytes # (Manual) D-Dimer Sodium 151 H Potassium 3.3 L Chloride 110.3 H Carbon Dioxide Creatinine 0.3 L Glucose 119 H POC Glucose 119 H Calcium Phosphorus Ferritin AST Lactate Dehydrogenase 423 H C-Reactive Protein 8.90 H Total Protein Albumin Lipase Vitamin B12 Valproic Acid Coronavirus (PCR) 04/30/21 05/01/21 05/01/21 11:14 07:29 07:29 WBC 21.4 H RBC Hgb Hct MCV MCHC RDW Lymph % (Auto) [place] % (Auto) Lymph # (Auto) [place] # (Auto) Seg Neutrophils % Seg Neuts % (Manual) Lymphocytes % (Manual) Monocytes % (Manual) Seg Neutrophils # Seg Neutrophils # Man Lymphocytes # (Manual) Monocytes # (Manual) D-Dimer Sodium 150 H Potassium 2.7 L* Chloride 111.2 H Carbon Dioxide Creatinine 0.3 L Glucose 162 H POC Glucose 113 H Calcium Phosphorus Ferritin AST Lactate Dehydrogenase C-Reactive Protein Total Protein Albumin Lipase Vitamin B12 Valproic Acid Coronavirus (PCR) 05/01/21 05/01/21 05/01/21 07:33 11:28 17:54 WBC RBC Hgb Hct MCV MCHC RDW Lymph % (Auto) [place] % (Auto) Lymph # (Auto) [place] # (Auto) Seg Neutrophils % Seg Neuts % (Manual) Lymphocytes % (Manual) Monocytes % (Manual) Seg Neutrophils # Seg Neutrophils # Man Lymphocytes # (Manual) Monocytes # (Manual) D-Dimer Sodium Potassium Chloride Carbon Dioxide Creatinine Glucose POC Glucose 147 H 152 H 165 H Calcium Phosphorus Ferritin AST Lactate Dehydrogenase C-Reactive Protein Total Protein Albumin Lipase Vitamin B12 Valproic Acid Coronavirus (PCR) 05/02/21 05/02/21 05/02/21 00:23 05:28 05:28 WBC 18.9 H RBC Hgb Hct MCV 95 H MCHC 31 L RDW Lymph % (Auto) [place] % (Auto) Lymph # (Auto) [place] # (Auto) Seg Neutrophils % Seg Neuts % (Manual) Lymphocytes % (Manual) Monocytes % (Manual) Seg Neutrophils # Seg Neutrophils # Man Lymphocytes # (Manual) Monocytes # (Manual) D-Dimer Sodium 151 H Potassium Chloride 111.4 H Carbon Dioxide Creatinine 0.3 L Glucose 132 H POC Glucose 160 H Calcium 8.3 L Phosphorus Ferritin AST Lactate Dehydrogenase C-Reactive Protein Total Protein Albumin Lipase Vitamin B12 Valproic Acid Coronavirus (PCR) 05/02/21 05/02/21 05/02/21 07:42 11:31 16:39 WBC RBC Hgb Hct MCV MCHC RDW Lymph % (Auto) [place] % (Auto) Lymph # (Auto) [place] # (Auto) Seg Neutrophils % Seg Neuts % (Manual) Lymphocytes % (Manual) Monocytes % (Manual) Seg Neutrophils # Seg Neutrophils # Man Lymphocytes # (Manual) Monocytes # (Manual) D-Dimer Sodium Potassium Chloride Carbon Dioxide Creatinine Glucose POC Glucose 170 H 131 H 140 H Calcium Phosphorus Ferritin AST Lactate Dehydrogenase C-Reactive Protein Total Protein Albumin Lipase Vitamin B12 Valproic Acid Coronavirus (PCR) 05/02/21 05/03/21 05/03/21 22:42 06:11 09:20 WBC 16.2 H RBC 3.51 L Hgb 10.5 L Hct 33.1 L MCV MCHC RDW 15.4 H Lymph % (Auto) [place] % (Auto) Lymph # (Auto) [place] # (Auto) Seg Neutrophils % Seg Neuts % (Manual) Lymphocytes % (Manual) Monocytes % (Manual) Seg Neutrophils # Seg Neutrophils # Man Lymphocytes # (Manual) Monocytes # (Manual) D-Dimer Sodium Potassium Chloride Carbon Dioxide Creatinine Glucose POC Glucose 107 H 108 H Calcium Phosphorus Ferritin AST Lactate Dehydrogenase C-Reactive Protein Total Protein Albumin Lipase Vitamin B12 Valproic Acid Coronavirus (PCR) 05/03/21 05/03/21 05/03/21 09:20 11:01 17:33 WBC RBC Hgb Hct MCV MCHC RDW Lymph % (Auto) [place] % (Auto) Lymph # (Auto) [place] # (Auto) Seg Neutrophils % Seg Neuts % (Manual) Lymphocytes % (Manual) Monocytes % (Manual) Seg Neutrophils # Seg Neutrophils # Man Lymphocytes # (Manual) Monocytes # (Manual) D-Dimer Sodium 149 H Potassium 3.5 L Chloride 110.0 H Carbon Dioxide Creatinine 0.3 L Glucose 113 H POC Glucose 146 H 118 H Calcium 8.0 L Phosphorus Ferritin AST Lactate Dehydrogenase C-Reactive Protein Total Protein Albumin Lipase Vitamin B12 Valproic Acid Coronavirus (PCR) 05/04/21 05/04/21 05/04/21 05:51 13:28 13:28 WBC RBC Hgb Hct MCV MCHC RDW Lymph % (Auto) [place] % (Auto) Lymph # (Auto) [place] # (Auto) Seg Neutrophils % Seg Neuts % (Manual) Lymphocytes % (Manual) Monocytes % (Manual) Seg Neutrophils # Seg Neutrophils # Man Lymphocytes # (Manual) Monocytes # (Manual) D-Dimer Sodium Potassium Chloride Carbon Dioxide Creatinine Glucose POC Glucose 143 H Calcium Phosphorus Ferritin AST Lactate Dehydrogenase C-Reactive Protein 15.40 H Total Protein Albumin Lipase Vitamin B12 Valproic Acid 10.9 L Coronavirus (PCR) 05/04/21 05/04/21 05/05/21 17:30 23:53 11:23 WBC RBC Hgb Hct MCV MCHC RDW Lymph % (Auto) [place] % (Auto) Lymph # (Auto) [place] # (Auto) Seg Neutrophils % Seg Neuts % (Manual) Lymphocytes % (Manual) Monocytes % (Manual) Seg Neutrophils # Seg Neutrophils # Man Lymphocytes # (Manual) Monocytes # (Manual) D-Dimer Sodium Potassium Chloride Carbon Dioxide Creatinine Glucose POC Glucose 110 H 128 H 121 H Calcium Phosphorus Ferritin AST Lactate Dehydrogenase C-Reactive Protein Total Protein Albumin Lipase Vitamin B12 Valproic Acid Coronavirus (PCR)
--- NOTE | 2021-05-05 14:15 | Progress Note ---
Assessment and Plan Cultures: 04/21/2021 blood culture: No growth 04/21/2021 urine culture: No growth 04/22/2021 COVID-19 PCR: Positive 04/28/2021 blood culture: No growth A/P: 66-year-old man unknown past medical history sent to the hospital with COVID-19 pneumonia and acute encephalopathy. #COVID-19 pneumonia: Patient presented with 3 days of symptoms, chest x-ray with diffuse bilateral infiltrates, admission O2 sats decreased on room air. Inflammatory markers elevated. CRP 9.2. #Acute hypoxemic respiratory failure: Likely secondary to COVID-19 infection. CTA on 05/02/2021 showed bilateral pneumonia and complete left lower lobe atelectasis secondary to mucous plugging. Pulmonary following. On NRB. #Acute encephalopathy: May be secondary to acute infection with COVID-19. Also hypernatremic #Leukocytosis: Likely secondary to steroids. Recommendations: -Completed steroids, Remdesivir -CTA on 05/02/2021 showed bilateral pneumonia and complete left lower lobe atelectasis secondary to mucous plugging. Pulmonary following, recommended nebs and chest PT -Completed cefepime. Continue levofloxacin x 5 days, procalcitonin elevated at 0.92 -CBC in AM -guarded prognosis Jessica Leija MD, FACP, [facility] ([facility] O: [phone] F: [phone] Subjective Date of service: 05/05/21 Principal diagnosis: Encephalopathy,COVID-19 Interval history: Afebrile. Remains on HFNC. Objective - Exam Narrative Exam: Physical Exam (reviewed in chart to minimize risk of transmission) Constitutional: deferred Head, Ears, Nose: deferred Eyes: deferred Neck: deferred Oral: deferred Cardiovascular: deferred Respiratory: deferred GI: deferred Musculoskeletal: deferred Skin: deferred Hem/Lymphatic: deferred Psych: deferred Neurological: deferred - Constitutional Vitals: Vital Signs Temp Pulse Resp BP Pulse Ox 99.6 F 62 32 H 107/55 94 05/05/21 11:28 05/05/21 11:28 05/05/21 11:28 05/05/21 11:28 05/05/21 11:28 Temperature -Last 24 Hours Temperature 99.6 F Temperature 99.7 F Temperature 98.9 F Temperature 98.7 F - Labs CBC & Chem 7: 05/03/21 09:20 05/03/21 09:20 Labs: Abnormal lab results 05/04/21 05/04/21 05/04/21 Range/Units 13:28 13:28 17:30 POC Glucose 110 H (70-105) mg/dL C-Reactive Protein 15.40 H (0.00-1.30) mg/dL Valproic Acid 10.9 L (50-100) ug/mL 05/04/21 05/05/21 Range/Units 23:53 11:23 POC Glucose 128 H 121 H (70-105) mg/dL C-Reactive Protein (0.00-1.30) mg/dL Valproic Acid (50-100) ug/mL
[2021-05-05] MEDS ORDERED: FUROSEMIDE 40 MG/4 ML INJ IV ONE (18:53)
[2021-05-05] MEDS: VALPROIC ACID 250 MG/5 ML ORAL LIQD PO SCH (21:23)
[2021-05-06] MEDS: FREE WATER PO SCH ×3 (00:55→22:53)
[2021-05-06] MEDS: ALBUTEROL 2.5 MG/3 ML NEBU IH SCH ×4 (02:30→21:28)
--- NOTE | 2021-05-06 08:26 | Electrocardiograph Report ---
[facility] Test Date: 2021-05-02 Test Time: 12:48:25 Pat Name: CHERRY LEDEZMA Department: Room: A364 1 Gender: M Plant Maintenance Engineer: ZENIA : 1955 Requested By: NERY LARRY Order Number: [id number] Reading MD: Karina Kenny Measurements Intervals [place] Rate: 108 P: 60 NE: 144 QRS: -6 QRSD: 76 T: 70 QT: 326 QTc: 437 Interpretive Statements Very poor quality ECG Sinus tachycardia Compared to ECG 04/27/2021 13:07:34 No significant changes Electronically Signed On 05-06-2021 8:26:21 EST by Karina Kenny
[2021-05-06 08:29] LABS: Hematocrit 36.5 % (35.5-45.6); Hemoglobin 12.1 gm/dl (11.8-15.2); Mean Corpuscular HGB Conc 33 % (32-34); Mean Corpuscular Volume 99 fl (84-94); Platelet Count 148 K/mm3 (140-440); Red Blood Count 3.68 M/mm3 (3.65-5.03); Red Cell Distribution Width 15.5 % (13.2-15.2)
[2021-05-06] MEDS: FAMOTIDINE 20 MG TAB PO SCH (09:06)
[2021-05-06] MEDS: ENOXAPARIN 40 MG/0.4 ML INJ SUB-Q SCH (09:06)
[2021-05-06] MEDS: METOPROLOL TARTRATE 25 MG TAB PO SCH ×2 (09:06→22:54)
[2021-05-06] MEDS: GLYCOPYRROLATE 2 MG TAB PO SCH ×2 (09:06→22:54)
[2021-05-06 12:01] LABS: Band Neutrophils # (Manual) 1.1 K/mm3; Basophils % (Manual) 0 % (0.0-1.8); Eosinophils % (Manual) 0 % (0.0-4.3); Platelet Estimate Consistent w Auto; RBC Morphology Normal; Total Cells Counted 100
--- NOTE | 2021-05-06 12:50 | Progress Note ---
Assessment and Plan 66 y/o male with altered mental status found to be COVID positive, now with worsening respiratory failure. 05/06/21: Please continue CPT multiple times daily. Please document this. Suggest proning patient to help with oxygenation if possible. Guarded prognosis. 05/05/21: Increased CPT to 3-6x daily. Should be done with scheduled albuterol therapy. Please wake patient up for scheduled meds as we are trying to remove mucous and improve oxygenation. Will discuss with RT to pass on to night shit. Prone as much as possible. Daily net negative fluid balance 1. Mucous plug on CTA. Needs CPT but more than daily. Please increase to at least TID 2. Prone as much as possible and sleep prone at night 3. Has already finished steroids 4. Guarded prognosis. Subjective Date of service: 05/06/21 Principal diagnosis: Encephalopathy,COVID-19 Interval history: Still on HFNC with good sats. Not sure why no weaning is taking place. Per charting, going for peg placement today. Objective Vital Signs - 12hr 05/06/21 05/06/21 05/06/21 02:30 04:29 10:00 Temperature 98.1 F Pulse Rate 139 H Pulse Rate [ 129 H Anterior Bilateral Throughout] Pulse Rate [ 120 H Radial] Respiratory 20 Rate Respiratory 20 Rate [Anterior Bilateral Throughout] Blood Pressure 107/64 O2 Sat by Pulse 96 92 97 Oximetry Constitutional: other (on nrb mask sat 100%, opens eyes to tactile stimuli, doesnt follow command ) ENT: oropharynx moist, oropharynx dry Ascultation: Bilateral: rhonchi (sl better) Cardiovascular: regular rate and rhythm, PVC's noted Gastrointestinal: normoactive bowel sounds Integumentary: normal CBC and BMP: 05/06/21 07:02 05/03/21 09:20 ABG, PT/INR, D-dimer: PT/INR, D-dimer D-Dimer 690.97 ng/mlDDU (0-234) H 04/30/21 06:20 Abnormal lab findings: Abnormal Labs 04/21/21 04/21/21 04/22/21 16:08 16:08 00:20 WBC RBC Hgb Hct MCV 96 H MCH MCHC RDW Lymph % (Auto) 8.5 L [place] % (Auto) 15.8 H Lymph # (Auto) 0.9 L [place] # (Auto) 1.7 H Seg Neutrophils % 75.6 H Seg Neuts % (Manual) Lymphocytes % (Manual) Monocytes % (Manual) Seg Neutrophils # 8.0 H Seg Neutrophils # Man Lymphocytes # (Manual) Monocytes # (Manual) D-Dimer 621.94 H Sodium Potassium Chloride Carbon Dioxide Creatinine 0.6 L Glucose 107 H POC Glucose Calcium 8.3 L Phosphorus Ferritin AST 136 H Lactate Dehydrogenase C-Reactive Protein Total Protein 6.2 L Albumin 3.0 L Lipase 7 L Vitamin B12 Valproic Acid Coronavirus (PCR) 04/22/21 04/22/21 04/22/21 00:20 00:20 06:51 WBC RBC Hgb Hct MCV 95 H MCH MCHC RDW Lymph % (Auto) [place] % (Auto) Lymph # (Auto) [place] # (Auto) Seg Neutrophils % Seg Neuts % (Manual) 91.0 H Lymphocytes % (Manual) 1.0 L Monocytes % (Manual) Seg Neutrophils # Seg Neutrophils # Man Lymphocytes # (Manual) 0.1 L Monocytes # (Manual) D-Dimer Sodium Potassium Chloride Carbon Dioxide Creatinine Glucose POC Glucose Calcium Phosphorus Ferritin 427.3 H AST Lactate Dehydrogenase 379 H C-Reactive Protein 9.20 H Total Protein Albumin Lipase Vitamin B12 Valproic Acid Coronavirus (PCR) 04/22/21 04/22/21 04/23/21 06:51 Unknown 09:24 WBC RBC Hgb Hct MCV 96 H MCH MCHC RDW Lymph % (Auto) 5.9 L [place] % (Auto) 9.3 H Lymph # (Auto) 0.5 L [place] # (Auto) Seg Neutrophils % 84.8 H Seg Neuts % (Manual) Lymphocytes % (Manual) Monocytes % (Manual) Seg Neutrophils # Seg Neutrophils # Man Lymphocytes # (Manual) Monocytes # (Manual) D-Dimer Sodium Potassium Chloride Carbon Dioxide Creatinine 0.4 L Glucose 114 H POC Glucose Calcium 8.0 L Phosphorus Ferritin AST 116 H Lactate Dehydrogenase C-Reactive Protein Total Protein 5.9 L Albumin 3.0 L Lipase Vitamin B12 Valproic Acid Coronavirus (PCR) Positive A 04/23/21 04/23/21 04/24/21 09:24 22:38 07:56 WBC RBC Hgb Hct MCV MCH MCHC RDW Lymph % (Auto) [place] % (Auto) Lymph # (Auto) [place] # (Auto) Seg Neutrophils % Seg Neuts % (Manual) Lymphocytes % (Manual) Monocytes % (Manual) Seg Neutrophils # Seg Neutrophils # Man Lymphocytes # (Manual) Monocytes # (Manual) D-Dimer Sodium Potassium 3.5 L Chloride Carbon Dioxide Creatinine 0.5 L Glucose 102 H POC Glucose 111 H Calcium 8.3 L Phosphorus 2.30 L Ferritin AST Lactate Dehydrogenase C-Reactive Protein Total Protein Albumin Lipase Vitamin B12 1039 H Valproic Acid Coronavirus (PCR) 04/24/21 04/24/21 04/24/21 07:56 07:56 21:37 WBC RBC Hgb Hct MCV 95 H MCH MCHC RDW Lymph % (Auto) [place] % (Auto) Lymph # (Auto) [place] # (Auto) Seg Neutrophils % Seg Neuts % (Manual) 80.0 H Lymphocytes % (Manual) 10.0 L Monocytes % (Manual) 10.0 H Seg Neutrophils # Seg Neutrophils # Man Lymphocytes # (Manual) 0.7 L Monocytes # (Manual) D-Dimer Sodium Potassium Chloride Carbon Dioxide Creatinine 0.4 L Glucose POC Glucose 111 H Calcium Phosphorus Ferritin AST Lactate Dehydrogenase C-Reactive Protein Total Protein Albumin Lipase Vitamin B12 Valproic Acid Coronavirus (PCR) 04/25/21 04/25/21 04/25/21 06:24 06:24 23:13 WBC RBC Hgb Hct 46.6 H MCV MCH MCHC RDW Lymph % (Auto) [place] % (Auto) Lymph # (Auto) [place] # (Auto) Seg Neutrophils % Seg Neuts % (Manual) 83.0 H Lymphocytes % (Manual) 1.0 L Monocytes % (Manual) 9.0 H Seg Neutrophils # Seg Neutrophils # Man Lymphocytes # (Manual) 0.1 L Monocytes # (Manual) D-Dimer Sodium 136 L 134 L Potassium 3.3 L Chloride Carbon Dioxide 21 L Creatinine 0.3 L 0.4 L Glucose 115 H POC Glucose Calcium 7.7 L Phosphorus Ferritin AST 104 H Lactate Dehydrogenase C-Reactive Protein Total Protein 6.1 L Albumin 2.6 L Lipase Vitamin B12 Valproic Acid Coronavirus (PCR) 04/26/21 04/27/21 04/27/21 06:29 06:31 06:31 WBC 17.6 H RBC Hgb Hct MCV MCH MCHC RDW Lymph % (Auto) [place] % (Auto) Lymph # (Auto) [place] # (Auto) Seg Neutrophils % Seg Neuts % (Manual) 87.0 H Lymphocytes % (Manual) 5.0 L Monocytes % (Manual) Seg Neutrophils # Seg Neutrophils # Man 15.3 H Lymphocytes # (Manual) 0.9 L Monocytes # (Manual) 0.9 H D-Dimer Sodium Potassium 3.4 L Chloride Carbon Dioxide Creatinine 0.5 L 0.4 L Glucose 112 H 106 H POC Glucose Calcium 8.0 L Phosphorus Ferritin AST 114 H 110 H Lactate Dehydrogenase C-Reactive Protein Total Protein 6.2 L Albumin 2.9 L 2.6 L Lipase Vitamin B12 Valproic Acid Coronavirus (PCR) 04/28/21 04/28/21 04/29/21 08:03 08:03 04:00 WBC 19.8 H 14.0 H RBC Hgb Hct MCV 95 H MCH MCHC RDW Lymph % (Auto) [place] % (Auto) Lymph # (Auto) [place] # (Auto) Seg Neutrophils % Seg Neuts % (Manual) 94.0 H Lymphocytes % (Manual) 1.0 L Monocytes % (Manual) Seg Neutrophils # Seg Neutrophils # Man 18.6 H Lymphocytes # (Manual) 0.2 L Monocytes # (Manual) D-Dimer Sodium Potassium Chloride Carbon Dioxide Creatinine 0.2 L Glucose 107 H POC Glucose Calcium 8.1 L Phosphorus Ferritin AST 87 H Lactate Dehydrogenase C-Reactive Protein Total Protein 5.1 L Albumin 2.4 L Lipase Vitamin B12 Valproic Acid Coronavirus (PCR) 04/29/21 04/30/21 04/30/21 04:00 06:20 06:20 WBC RBC Hgb Hct MCV MCH MCHC RDW Lymph % (Auto) [place] % (Auto) Lymph # (Auto) [place] # (Auto) Seg Neutrophils % Seg Neuts % (Manual) Lymphocytes % (Manual) Monocytes % (Manual) Seg Neutrophils # Seg Neutrophils # Man Lymphocytes # (Manual) Monocytes # (Manual) D-Dimer 690.97 H Sodium 148 H Potassium 3.0 L Chloride 110.2 H Carbon Dioxide Creatinine 0.2 L Glucose 130 H POC Glucose Calcium Phosphorus Ferritin 930.1 H AST 63 H Lactate Dehydrogenase C-Reactive Protein Total Protein 5.6 L Albumin 2.4 L Lipase Vitamin B12 Valproic Acid Coronavirus (PCR) 04/30/21 04/30/21 04/30/21 06:20 08:01 08:41 WBC RBC Hgb Hct MCV MCH MCHC RDW Lymph % (Auto) [place] % (Auto) Lymph # (Auto) [place] # (Auto) Seg Neutrophils % Seg Neuts % (Manual) Lymphocytes % (Manual) Monocytes % (Manual) Seg Neutrophils # Seg Neutrophils # Man Lymphocytes # (Manual) Monocytes # (Manual) D-Dimer Sodium 151 H Potassium 3.3 L Chloride 110.3 H Carbon Dioxide Creatinine 0.3 L Glucose 119 H POC Glucose 119 H Calcium Phosphorus Ferritin AST Lactate Dehydrogenase 423 H C-Reactive Protein 8.90 H Total Protein Albumin Lipase Vitamin B12 Valproic Acid Coronavirus (PCR) 04/30/21 05/01/21 05/01/21 11:14 07:29 07:29 WBC 21.4 H RBC Hgb Hct MCV MCH MCHC RDW Lymph % (Auto) [place] % (Auto) Lymph # (Auto) [place] # (Auto) Seg Neutrophils % Seg Neuts % (Manual) Lymphocytes % (Manual) Monocytes % (Manual) Seg Neutrophils # Seg Neutrophils # Man Lymphocytes # (Manual) Monocytes # (Manual) D-Dimer Sodium 150 H Potassium 2.7 L* Chloride 111.2 H Carbon Dioxide Creatinine 0.3 L Glucose 162 H POC Glucose 113 H Calcium Phosphorus Ferritin AST Lactate Dehydrogenase C-Reactive Protein Total Protein Albumin Lipase Vitamin B12 Valproic Acid Coronavirus (PCR) 05/01/21 05/01/21 05/01/21 07:33 11:28 17:54 WBC RBC Hgb Hct MCV MCH MCHC RDW Lymph % (Auto) [place] % (Auto) Lymph # (Auto) [place] # (Auto) Seg Neutrophils % Seg Neuts % (Manual) Lymphocytes % (Manual) Monocytes % (Manual) Seg Neutrophils # Seg Neutrophils # Man Lymphocytes # (Manual) Monocytes # (Manual) D-Dimer Sodium Potassium Chloride Carbon Dioxide Creatinine Glucose POC Glucose 147 H 152 H 165 H Calcium Phosphorus Ferritin AST Lactate Dehydrogenase C-Reactive Protein Total Protein Albumin Lipase Vitamin B12 Valproic Acid Coronavirus (PCR) 05/02/21 05/02/21 05/02/21 00:23 05:28 05:28 WBC 18.9 H RBC Hgb Hct MCV 95 H MCH MCHC 31 L RDW Lymph % (Auto) [place] % (Auto) Lymph # (Auto) [place] # (Auto) Seg Neutrophils % Seg Neuts % (Manual) Lymphocytes % (Manual) Monocytes % (Manual) Seg Neutrophils # Seg Neutrophils # Man Lymphocytes # (Manual) Monocytes # (Manual) D-Dimer Sodium 151 H Potassium Chloride 111.4 H Carbon Dioxide Creatinine 0.3 L Glucose 132 H POC Glucose 160 H Calcium 8.3 L Phosphorus Ferritin AST Lactate Dehydrogenase C-Reactive Protein Total Protein Albumin Lipase Vitamin B12 Valproic Acid Coronavirus (PCR) 05/02/21 05/02/21 05/02/21 07:42 11:31 16:39 WBC RBC Hgb Hct MCV MCH MCHC RDW Lymph % (Auto) [place] % (Auto) Lymph # (Auto) [place] # (Auto) Seg Neutrophils % Seg Neuts % (Manual) Lymphocytes % (Manual) Monocytes % (Manual) Seg Neutrophils # Seg Neutrophils # Man Lymphocytes # (Manual) Monocytes # (Manual) D-Dimer Sodium Potassium Chloride Carbon Dioxide Creatinine Glucose POC Glucose 170 H 131 H 140 H Calcium Phosphorus Ferritin AST Lactate Dehydrogenase C-Reactive Protein Total Protein Albumin Lipase Vitamin B12 Valproic Acid Coronavirus (PCR) 05/02/21 05/03/21 05/03/21 22:42 06:11 09:20 WBC 16.2 H RBC 3.51 L Hgb 10.5 L Hct 33.1 L MCV MCH MCHC RDW 15.4 H Lymph % (Auto) [place] % (Auto) Lymph # (Auto) [place] # (Auto) Seg Neutrophils % Seg Neuts % (Manual) Lymphocytes % (Manual) Monocytes % (Manual) Seg Neutrophils # Seg Neutrophils # Man Lymphocytes # (Manual) Monocytes # (Manual) D-Dimer Sodium Potassium Chloride Carbon Dioxide Creatinine Glucose POC Glucose 107 H 108 H Calcium Phosphorus Ferritin AST Lactate Dehydrogenase C-Reactive Protein Total Protein Albumin Lipase Vitamin B12 Valproic Acid Coronavirus (PCR) 05/03/21 05/03/21 05/03/21 09:20 11:01 17:33 WBC RBC Hgb Hct MCV MCH MCHC RDW Lymph % (Auto) [place] % (Auto) Lymph # (Auto) [place] # (Auto) Seg Neutrophils % Seg Neuts % (Manual) Lymphocytes % (Manual) Monocytes % (Manual) Seg Neutrophils # Seg Neutrophils # Man Lymphocytes # (Manual) Monocytes # (Manual) D-Dimer Sodium 149 H Potassium 3.5 L Chloride 110.0 H Carbon Dioxide Creatinine 0.3 L Glucose 113 H POC Glucose 146 H 118 H Calcium 8.0 L Phosphorus Ferritin AST Lactate Dehydrogenase C-Reactive Protein Total Protein Albumin Lipase Vitamin B12 Valproic Acid Coronavirus (PCR) 05/04/21 05/04/21 05/04/21 05:51 13:28 13:28 WBC RBC Hgb Hct MCV MCH MCHC RDW Lymph % (Auto) [place] % (Auto) Lymph # (Auto) [place] # (Auto) Seg Neutrophils % Seg Neuts % (Manual) Lymphocytes % (Manual) Monocytes % (Manual) Seg Neutrophils # Seg Neutrophils # Man Lymphocytes # (Manual) Monocytes # (Manual) D-Dimer Sodium Potassium Chloride Carbon Dioxide Creatinine Glucose POC Glucose 143 H Calcium Phosphorus Ferritin AST Lactate Dehydrogenase C-Reactive Protein 15.40 H Total Protein Albumin Lipase Vitamin B12 Valproic Acid 10.9 L Coronavirus (PCR) 05/04/21 05/04/21 05/05/21 17:30 23:53 11:23 WBC RBC Hgb Hct MCV MCH MCHC RDW Lymph % (Auto) [place] % (Auto) Lymph # (Auto) [place] # (Auto) Seg Neutrophils % Seg Neuts % (Manual) Lymphocytes % (Manual) Monocytes % (Manual) Seg Neutrophils # Seg Neutrophils # Man Lymphocytes # (Manual) Monocytes # (Manual) D-Dimer Sodium Potassium Chloride Carbon Dioxide Creatinine Glucose POC Glucose 110 H 128 H 121 H Calcium Phosphorus Ferritin AST Lactate Dehydrogenase C-Reactive Protein Total Protein Albumin Lipase Vitamin B12 Valproic Acid Coronavirus (PCR) 05/05/21 05/05/21 05/06/21 16:26 21:24 07:02 WBC 11.7 H RBC Hgb Hct MCV 99 H MCH 33 H MCHC RDW 15.5 H Lymph % (Auto) [place] % (Auto) Lymph # (Auto) [place] # (Auto) Seg Neutrophils % Seg Neuts % (Manual) 82.0 H Lymphocytes % (Manual) 4.0 L Monocytes % (Manual) Seg Neutrophils # Seg Neutrophils # Man 9.6 H Lymphocytes # (Manual) 0.5 L Monocytes # (Manual) D-Dimer Sodium Potassium Chloride Carbon Dioxide Creatinine Glucose POC Glucose 113 H 130 H Calcium Phosphorus Ferritin AST Lactate Dehydrogenase C-Reactive Protein Total Protein Albumin Lipase Vitamin B12 Valproic Acid Coronavirus (PCR)
--- NOTE | 2021-05-06 13:54 | Progress Note ---
Assessment and Plan Cultures: 04/21/2021 blood culture: No growth 04/21/2021 urine culture: No growth 04/22/2021 COVID-19 PCR: Positive 04/28/2021 blood culture: No growth A/P: 66-year-old man unknown past medical history sent to the hospital with COVID-19 pneumonia and acute encephalopathy. #COVID-19 pneumonia: Patient presented with 3 days of symptoms, chest x-ray with diffuse bilateral infiltrates, admission O2 sats decreased on room air. Inflammatory markers elevated. CRP 9.2. #Acute hypoxemic respiratory failure: Likely secondary to COVID-19 infection. CTA on 05/02/2021 showed bilateral pneumonia and complete left lower lobe atelectasis secondary to mucous plugging. Pulmonary following. On NRB. #Acute encephalopathy: May be secondary to acute infection with COVID-19. Also hypernatremic #Leukocytosis: Likely secondary to steroids. Recommendations: -Completed steroids, Remdesivir -Chest PT per pulmonary -Completed cefepime. Continue levofloxacin x 5 days, last day today -guarded prognosis Jessica Leija MD, FACP, [facility] ([facility] O: [phone] F: [phone] Subjective Date of service: 05/06/21 Principal diagnosis: Encephalopathy,COVID-19 Interval history: Afebrile. Tachycardic. On high flow nasal cannula. Objective - Exam Narrative Exam: Physical Exam (reviewed in chart to minimize risk of transmission) Constitutional: deferred Head, Ears, Nose: deferred Eyes: deferred Neck: deferred Oral: deferred Cardiovascular: deferred Respiratory: deferred GI: deferred Musculoskeletal: deferred Skin: deferred Hem/Lymphatic: deferred Psych: deferred Neurological: deferred - Constitutional Vitals: Vital Signs Temp Pulse Resp BP Pulse Ox 98.0 F 122 H 20 98/60 96 05/06/21 11:20 05/06/21 11:20 05/06/21 11:20 05/06/21 11:20 05/06/21 11:20 Temperature -Last 24 Hours Temperature 98.0 F Temperature 98.1 F Temperature 99.4 F Temperature 99.0 F - Labs CBC & Chem 7: 05/06/21 07:02 05/03/21 09:20 Labs: Abnormal lab results 05/05/21 05/05/21 05/06/21 Range/Units 16:26 21:24 07:02 WBC 11.7 H (4.5-11.0) K/mm3 MCV 99 H (84-94) fl MCH 33 H (28-32) pg RDW 15.5 H (13.2-15.2) % Seg Neuts % (Manual) 82.0 H (40.0-70.0) % Lymphocytes % (Manual) 4.0 L (13.4-35.0) % Seg Neutrophils # Man 9.6 H (1.8-7.7) K/mm3 Lymphocytes # (Manual) 0.5 L (1.2-5.4) K/mm3 POC Glucose 113 H 130 H (70-105) mg/dL
[2021-05-06] MEDS ORDERED: METOPROLOL TARTRATE 5 MG/5 ML INJ IV ONE (14:30)
--- NOTE | 2021-05-06 17:17 | Gastroenterology Progress Note ---
Assessment and Plan 1. GI: pt for possible peg in am if cleared by primary team - will follow Subjective Date of service: 05/06/21 Principal diagnosis: Encephalopathy,COVID-19 Interval history: - asked to see pt for possible peg, no GI complaints Objective - Constitutional Vitals: Temp Pulse Resp BP Pulse Ox 98.0 F 150 H 20 98/60 96 05/06/21 11:20 05/06/21 15:08 05/06/21 11:20 05/06/21 11:20 05/06/21 11:20 General appearance: no acute distress - EENT Eyes: PERRL - Respiratory Respiratory: bilateral: rhonchi - Cardiovascular Rhythm: regular Heart Sounds: Present: S1 & S2 - Gastrointestinal General gastrointestinal: Present: non-tender, tender, non-distended - Labs CBC & Chem 7: 05/06/21 07:02 05/03/21 09:20 Labs: Laboratory Results - last 24 hr 05/05/21 05/06/21 05/06/21 21:24 07:02 07:44 WBC 11.7 H RBC 3.68 Hgb 12.1 Hct 36.5 MCV 99 H MCH 33 H MCHC 33 RDW 15.5 H Plt Count 148 Add Manual Diff Complete Total Counted 100 Seg Neuts % (Manual) 82.0 H Band Neutrophils % 9.0 Lymphocytes % (Manual) 4.0 L Reactive Lymphs % (Man) 0 Monocytes % (Manual) 5.0 Eosinophils % (Manual) 0 Basophils % (Manual) 0 Metamyelocytes % 0 Myelocytes % 0 Promyelocytes % 0 Blast Cells % 0 Nucleated RBC % Not Reportable Seg Neutrophils # Man 9.6 H Band Neutrophils # 1.1 Lymphocytes # (Manual) 0.5 L Abs React Lymphs (Man) 0.0 Monocytes # (Manual) 0.6 Eosinophils # (Manual) 0.0 Basophils # (Manual) 0.0 Metamyelocytes # 0.0 Myelocytes # 0.0 Promyelocytes # 0.0 Blast Cells # 0.0 WBC Morphology Not Reportable Hypersegmented Neuts Not Reportable Hyposegmented Neuts Not Reportable Hypogranular Neuts Not Reportable Smudge Cells Not Reportable Toxic Granulation Not Reportable Toxic Vacuolation Not Reportable Dohle Bodies Not Reportable Pelger-Huet Anomaly Not Reportable Jeannette Rods Not Reportable Platelet Estimate Consistent w auto Clumped Platelets Not Reportable Plt Clumps, EDTA Not Reportable Large Platelets Not Reportable Giant Platelets Not Reportable Platelet Satelliting Not Reportable Plt Morphology Comment Not Reportable RBC Morphology Normal Dimorphic RBCs Not Reportable Polychromasia Not Reportable Hypochromasia Not Reportable Poikilocytosis Not Reportable Anisocytosis Not Reportable Microcytosis Not Reportable Macrocytosis Not Reportable Spherocytes Not Reportable Pappenheimer Bodies Not Reportable Sickle Cells Not Reportable Target Cells Not Reportable Tear Drop Cells Not Reportable Ovalocytes Not Reportable Helmet Cells Not Reportable William-Bug Tussle Bodies Not Reportable [place] Rings Not Reportable [place] Cells Not Reportable Bite Cells Not Reportable Crenated Cell Not Reportable Elliptocytes Not Reportable Acanthocytes (Spur) Not Reportable Rouleaux Not Reportable Hemoglobin C Crystals Not Reportable Schistocytes Not Reportable Malaria parasites Not Reportable Steve Bodies Not Reportable Hem Pathologist Commnt No POC Glucose 130 H 97 05/06/21 05/06/21 11:10 15:50 WBC RBC Hgb Hct MCV MCH MCHC RDW Plt Count Add Manual Diff Total Counted Seg Neuts % (Manual) Band Neutrophils % Lymphocytes % (Manual) Reactive Lymphs % (Man) Monocytes % (Manual) Eosinophils % (Manual) Basophils % (Manual) Metamyelocytes % Myelocytes % Promyelocytes % Blast Cells % Nucleated RBC % Seg Neutrophils # Man Band Neutrophils # Lymphocytes # (Manual) Abs React Lymphs (Man) Monocytes # (Manual) Eosinophils # (Manual) Basophils # (Manual) Metamyelocytes # Myelocytes # Promyelocytes # Blast Cells # WBC Morphology Hypersegmented Neuts Hyposegmented Neuts Hypogranular Neuts Smudge Cells Toxic Granulation Toxic Vacuolation Dohle Bodies Pelger-Huet Anomaly Jeannette Rods Platelet Estimate Clumped Platelets Plt Clumps, EDTA Large Platelets Giant Platelets Platelet Satelliting Plt Morphology Comment RBC Morphology Dimorphic RBCs Polychromasia Hypochromasia Poikilocytosis Anisocytosis Microcytosis Macrocytosis Spherocytes Pappenheimer Bodies Sickle Cells Target Cells Tear Drop Cells Ovalocytes Helmet Cells William-Bug Tussle Bodies [place] Rings [place] Cells Bite Cells Crenated Cell Elliptocytes Acanthocytes (Spur) Rouleaux Hemoglobin C Crystals Schistocytes Malaria parasites Steve Bodies Hem Pathologist Commnt POC Glucose 85 96
--- NOTE | 2021-05-06 20:00 | Progress Note ---
Assessment and Plan Assessment and plan: --Acute metabolic encephalopathy -CT head negative for acute abnormality -Baseline patient able to perform ADLs -Could be secondary to COVID infection -Neurology consulted, no recommendations at this time -MRI pending Guardian authorization obtained -will continue to monitor --COVID-19 pneumonia; Continue empiric antibiotics, assessed more than 90% Home O2 evaluation prior to discharge Follow cultures, home O2 evaluation --Acute hypoxic respiratory failure Probably due to mucus plugging, COVID-19 pneumonia -currently on supplemental O2, will wean as tolerated -s/p dexamethasone x 10 days & remdesivir 5 days -CTA ordered, negative for PE but shows LLL atelectasis likely 2/2 to mucus plugging -ID following, assistance appreciated -continue levaquin, pulmonary toilet and deep suctioning -Pulmonology following, aggressive chest PT Prone positioning as tolerated --Leukocytosis Probably secondary to steroids and underlying disease process Treat the underlying cause, titrate Solu-Medrol dose decreased --Aspiration precautions Speech therapy evaluation recommended PEG tube placement GI consult for PEG tube placement, Scheduled for PEG tomorrow N.p.o. from midnight --Hypokalemia Closely monitor electrolytes Check magnesium --Hypernatremia 250cc q6h free water flushes will continue to monitor likely 2/2 to lack of oral intake --Severe protein calorie malnutrition BMI 20.3; albumin 2.4 Nutrition consulted continue tube feeding Considering PEG tube placement per GI --Social issues Patient is a herrera of [facility], contact is Ms. Mattson to discuss clinical updates/consent for procedures ([phone]) We will closely monitor the patient and adjust management as needed Plan of care reviewed with the patient and his nurse Disposition Plan: Continue medical management Patient needs PEG placement, consent obtained from the herrera of the [facility] of the [facility] has given consent for the procedures PEG and MRI We will closely monitor 05/06/2021; patient scheduled for PEG tomorrow N.p.o. status, mild to moderate risk for the procedure No medical contraindication for PEG placement. History Interval history: Seen and examined the patient at the bedside Patient is confused, agitated requires restraints sometimes Nonverbal Hospitalist Physical - Constitutional Vitals: Temp Pulse Resp BP Pulse Ox 99.0 F 126 H 21 100/63 100 05/06/21 16:53 05/06/21 16:53 05/06/21 16:53 05/06/21 16:53 05/06/21 16:53 General appearance: Present: no acute distress, cachectic, other (Nonverbal, confused) - EENT Eyes: Present: PERRL, EOM intact - Neck Neck: Present: supple, normal ROM - Respiratory Respiratory effort: normal Respiratory: bilateral: diminished, rhonchi, negative: rales, wheezing - Cardiovascular Rhythm: regular Heart Sounds: Present: S1 & S2 - Extremities Extremities: no ischemia, No edema - Abdominal General gastrointestinal: soft, non-tender, non-distended, normal bowel sounds - Integumentary Integumentary: Present: clear, warm - Psychiatric Psychiatric: other (Confused nonverbal) - Neurologic Neurologic: moves all extremities (Confused nonverbal) HEART Score - HEART Score Age: 45-65 Risk factors: 1-2 risk factors - Critical Actions Critical Actions: 0-3 pts:0.9-1.7%risk of adverse cardiac event.Candidate for discharge Results - Labs CBC & Chem 7: 05/06/21 07:02 05/03/21 09:20 Labs: Laboratory Last Values WBC 11.7 K/mm3 (4.5-11.0) H 05/06/21 07:02 RBC 3.68 M/mm3 (3.65-5.03) 05/06/21 07:02 Hgb 12.1 gm/dl (11.8-15.2) 05/06/21 07:02 Hct 36.5 % (35.5-45.6) 05/06/21 07:02 MCV 99 fl (84-94) H 05/06/21 07:02 MCH 33 pg (28-32) H 05/06/21 07:02 MCHC 33 % (32-34) 05/06/21 07:02 RDW 15.5 % (13.2-15.2) H 05/06/21 07:02 Plt Count 148 K/mm3 (140-440) 05/06/21 07:02 Lymph % (Auto) 5.9 % (13.4-35.0) L 04/23/21 09:24 [place] % (Auto) [employer] 04/25/21 06:24 Eos % (Auto) 0.0 % (0.0-4.3) 04/23/21 09:24 Baso % (Auto) 0.0 % (0.0-1.8) 04/23/21 09:24 Lymph # (Auto) 0.5 K/mm3 (1.2-5.4) L 04/23/21 09:24 [place] # (Auto) 0.8 K/mm3 (0.0-0.8) 04/23/21 09:24 Eos # (Auto) 0.0 K/mm3 (0.0-0.4) 04/23/21 09:24 Baso # (Auto) 0.0 K/mm3 (0.0-0.1) 04/23/21 09:24 Add Manual Diff Complete 05/06/21 07:02 Total Counted 100 05/06/21 07:02 Seg Neutrophils % [employer] 04/28/21 08:03 Seg Neuts % (Manual) 82.0 % (40.0-70.0) H 05/06/21 07:02 Band Neutrophils % 9.0 % 05/06/21 07:02 Lymphocytes % (Manual) 4.0 % (13.4-35.0) L 05/06/21 07:02 Reactive Lymphs % (Man) 0 % 05/06/21 07:02 Monocytes % (Manual) 5.0 % (0.0-7.3) 05/06/21 07:02 Eosinophils % (Manual) 0 % (0.0-4.3) 05/06/21 07:02 Basophils % (Manual) 0 % (0.0-1.8) 05/06/21 07:02 Metamyelocytes % 0 % 05/06/21 07:02 Myelocytes % 0 % 05/06/21 07:02 Promyelocytes % 0 % 05/06/21 07:02 Blast Cells % 0 % 05/06/21 07:02 Nucleated RBC % Not Reportable 05/06/21 07:02 Seg Neutrophils # 7.2 K/mm3 (1.8-7.7) 04/23/21 09:24 Seg Neutrophils # Man 9.6 K/mm3 (1.8-7.7) H 05/06/21 07:02 Band Neutrophils # 1.1 K/mm3 05/06/21 07:02 Lymphocytes # (Manual) 0.5 K/mm3 (1.2-5.4) L 05/06/21 07:02 Abs React Lymphs (Man) 0.0 K/mm3 05/06/21 07:02 Monocytes # (Manual) 0.6 K/mm3 (0.0-0.8) 05/06/21 07:02 Eosinophils # (Manual) 0.0 K/mm3 (0.0-0.4) 05/06/21 07:02 Basophils # (Manual) 0.0 K/mm3 (0.0-0.1) 05/06/21 07:02 Metamyelocytes # 0.0 K/mm3 05/06/21 07:02 Myelocytes # 0.0 K/mm3 05/06/21 07:02 Promyelocytes # 0.0 K/mm3 05/06/21 07:02 Blast Cells # 0.0 K/mm3 05/06/21 07:02 WBC Morphology Not Reportable 05/06/21 07:02 Hypersegmented Neuts Not Reportable 05/06/21 07:02 Hyposegmented Neuts Not Reportable 05/06/21 07:02 Hypogranular Neuts Not Reportable 05/06/21 07:02 Smudge Cells Not Reportable 05/06/21 07:02 Toxic Granulation Not Reportable 05/06/21 07:02 Toxic Vacuolation Not Reportable 05/06/21 07:02 Dohle Bodies Not Reportable 05/06/21 07:02 Pelger-Huet Anomaly Not Reportable 05/06/21 07:02 Jeannette Rods Not Reportable 05/06/21 07:02 Platelet Estimate Consistent w auto 05/06/21 07:02 Clumped Platelets Not Reportable 05/06/21 07:02 Plt Clumps, EDTA Not Reportable 05/06/21 07:02 Large Platelets Not Reportable 05/06/21 07:02 Giant Platelets Not Reportable 05/06/21 07:02 Platelet Satelliting Not Reportable 05/06/21 07:02 Plt Morphology Comment Not Reportable 05/06/21 07:02 RBC Morphology Normal 05/06/21 07:02 Dimorphic RBCs Not Reportable 05/06/21 07:02 Polychromasia Not Reportable 05/06/21 07:02 Hypochromasia Not Reportable 05/06/21 07:02 Poikilocytosis Not Reportable 05/06/21 07:02 Anisocytosis Not Reportable 05/06/21 07:02 Microcytosis Not Reportable 05/06/21 07:02 Macrocytosis Not Reportable 05/06/21 07:02 Spherocytes Not Reportable 05/06/21 07:02 Pappenheimer Bodies Not Reportable 05/06/21 07:02 Sickle Cells Not Reportable 05/06/21 07:02 Target Cells Not Reportable 05/06/21 07:02 Tear Drop Cells Not Reportable 05/06/21 07:02 Ovalocytes Not Reportable 05/06/21 07:02 Helmet Cells Not Reportable 05/06/21 07:02 [place] Bodies Not Reportable 05/06/21 07:02 [place] Rings Not Reportable 05/06/21 07:02 Canelo Cells Not Reportable 05/06/21 07:02 Bite Cells Not Reportable 05/06/21 07:02 Crenated Cell Not Reportable 05/06/21 07:02 Elliptocytes Not Reportable 05/06/21 07:02 Acanthocytes (Spur) Not Reportable 05/06/21 07:02 Rouleaux Not Reportable 05/06/21 07:02 Hemoglobin C Crystals Not Reportable 05/06/21 07:02 Schistocytes Not Reportable 05/06/21 07:02 Malaria parasites Not Reportable 05/06/21 07:02 ESR 60 mm/Hr (0-20) 05/04/21 13:28 Steve Bodies Not Reportable 05/06/21 07:02 Hem Pathologist Commnt No 05/06/21 07:02 APTT 32.0 Sec. (24.2-36.6) 04/21/21 18:02 D-Dimer 690.97 ng/mlDDU (0-234) H 04/30/21 06:20 Sodium 149 mmol/L (137-145) H 05/03/21 09:20 Potassium 3.5 mmol/L (3.6-5.0) L 05/03/21 09:20 Chloride 110.0 mmol/L (98-107) H 05/03/21 09:20 Carbon Dioxide 27 mmol/L (22-30) 05/03/21 09:20 Anion Gap 16 mmol/L 05/03/21 09:20 BUN 16 mg/dL (9-20) 05/03/21 09:20 Creatinine 0.3 mg/dL (0.8-1.3) L 05/03/21 09:20 Estimated GFR > 60 ml/min 05/03/21 09:20 BUN/Creatinine Ratio 53 % 05/03/21 09:20 Glucose 113 mg/dL (75-100) H 05/03/21 09:20 POC Glucose 96 mg/dL (70-105) 05/06/21 15:50 Lactic Acid 1.20 mmol/L (0.7-2.0) 04/21/21 20:26 Calcium 8.0 mg/dL (8.4-10.2) L 05/03/21 09:20 Phosphorus 2.30 mg/dL (2.5-4.5) L 04/23/21 09:24 Magnesium 1.80 mg/dL (1.7-2.3) 04/23/21 09:24 Ferritin 930.1 ng/mL (30.0-300.0) H 04/30/21 06:20 Total Bilirubin 0.70 mg/dL (0.1-1.2) 04/29/21 04:00 AST 63 units/L (5-40) H 04/29/21 04:00 ALT 37 units/L (7-56) 04/29/21 04:00 Alkaline Phosphatase 58 units/L (35-129) 04/29/21 04:00 Lactate Dehydrogenase 423 units/L (91-180) H 04/30/21 06:20 C-Reactive Protein 15.40 mg/dL (0.00-1.30) H 05/04/21 13:28 Total Protein 5.6 g/dL (6.3-8.2) L 04/29/21 04:00 Albumin 2.4 g/dL (3.9-5) L 04/29/21 04:00 Albumin/Globulin Ratio 0.8 % 04/29/21 04:00 Lipase 7 units/L (13-60) L 04/21/21 16:08 Vitamin B12 1039 pg/mL (211-911) H 04/24/21 07:56 Procalcitonin 0.92 ng/mL (<0.15) 05/05/21 09:30 TSH 1.330 mlU/mL (0.270-4.200) 04/24/21 07:56 Free T4 1.03 ng/dL (0.76-1.46) 04/24/21 07:56 Urine Color Leticia (Yellow) 04/21/21 Unknown Urine Turbidity Clear (Clear) 04/21/21 Unknown Urine pH 5.0 (5.0-7.0) 04/21/21 Unknown Ur Specific [place] 1.027 (1.003-1.030) 04/21/21 Unknown Urine Protein 100 mg/dl mg/dL (Negative) 04/21/21 Unknown Urine Glucose (UA) Neg mg/dL (Negative) 04/21/21 Unknown Urine Ketones 20 mg/dL (Negative) 04/21/21 Unknown Urine Blood Mod (Negative) 04/21/21 Unknown Urine Nitrite Neg (Negative) 04/21/21 Unknown Urine Bilirubin Neg (Negative) 04/21/21 Unknown Urine Urobilinogen 4.0 mg/dL (<2.0) 04/21/21 Unknown Ur Leukocyte Esterase Neg (Negative) 04/21/21 Unknown Urine WBC (Auto) < 1.0 /HPF (0.0-6.0) 04/21/21 Unknown Urine RBC (Auto) < 1.0 /HPF (0.0-6.0) 04/21/21 Unknown Urine Mucus Few /HPF 04/21/21 Unknown Valproic Acid 10.9 ug/mL (50-100) L 05/04/21 13:28 Coronavirus (PCR) Positive (Negative) A 04/22/21 Unknown [place]/IV: Voiding Method Condom Catheter Active Medications - Current Medications Current Medications: Generic Name Dose Route Start Last Admin Trade Name Joseq PRN Reason Stop Dose Admin Acetaminophen 650 mg 04/21/21 22:31 04/23/21 12:43 Acetaminophen 325 Mg Tab PO 650 mg Q4H PRN Administration Pain MILD(1-3)/Fever >100.5/RAY Albuterol 2.5 mg 05/02/21 14:00 05/06/21 15:00 Albuterol 2.5 Mg/3 Ml Nebu IH 2.5 mg Q6HRT EDDIE Administration Famotidine 20 mg 04/22/21 10:00 05/06/21 09:06 Famotidine 20 Mg Tab PO Not Given BID EDDIE Glycopyrrolate 2 mg 05/01/21 14:00 05/06/21 09:06 Glycopyrrolate 2 Mg Tab PO Not Given BID EDDIE Guaifenesin 200 mg 04/24/21 08:28 05/04/21 04:48 Guaifenesin 100 Mg/5 Ml Oral Liqd PO 200 mg Q4H PRN Administration Cough Metoclopramide HCl 10 mg 04/21/21 22:31 Metoclopramide 10 Mg/2 Ml Inj IV Q6H PRN Nausea And Vomiting Metoprolol Tartrate 12.5 mg 05/04/21 22:00 05/06/21 09:06 Metoprolol Tartrate 25 Mg Tab PO Not Given BID EDDIE Metoprolol Tartrate 2.5 mg 05/06/21 16:12 Metoprolol Tartrate 5 Mg/5 Ml Inj IV Q6HR PRN Tachyarrhythmias Ondansetron HCl 4 mg 04/21/21 22:31 Ondansetron 4 Mg/2 Ml Inj IV Q8H PRN Nausea And Vomiting Oxycodone/Acetaminophen 1 tab 04/21/21 22:31 04/22/21 22:35 Oxycodone /Acetaminophen 5-325mg Tab PO 1 tab Q6H PRN Administration Pain, Moderate (4-6) Sodium Chloride 10 ml 04/22/21 10:00 05/06/21 09:07 Sodium Chloride 0.9% 10 Ml Flush Syringe IV 10 ml BID EDDIE Administration Sodium Chloride 10 ml 04/21/21 22:31 Sodium Chloride 0.9% 10 Ml Flush Syringe IV PRN PRN LINE FLUSH Valproic Acid 250 mg 05/01/21 22:00 05/05/21 21:23 Valproic Acid 250 Mg/5 Ml Oral Liqd PO 250 mg QHS EDDIE Administration Nutrition/Malnutrition Assess - Dietary Evaluation Nutrition/Malnutrition Findings: Nutrition Notes Start: 04/22/21 18:07 Freq: Status: Active Protocol: Document 05/05/21 08:52 RICKY (Rec: 05/05/21 09:06 RICKY [id number]) Nutrition Notes Initial or Follow up Brief Note Current Diet TF-Jevity 1.2 Louie @ 56 ml/hr ( since B 05/01). Height 6 ft Weight 67.5 kg Taylor Body Weight (kg) 80.90 BMI 20.2 Weight change and time frame No body weight change reported . Weight Status Appropriate Subjective/Other Information RD consult for routine F/U on dietary advancement or PEG tube placement. PEG tube still not approved by guardianship, but RN sdtates that Pt is receiving TF and tolerating well at the time. Percent of energy/protein needs met: Prescribed Jevity 1.2 Louie @ 56 ml/hr provides for energy/ protein needs (1,600 Kcal/74 g ) during LOS, 100% Kcal; 90% AA. #1 Nutrition Diagnosis Inadequate protein-energy intake Comments: Pt now receiving TF and tolerating well. Diagnosis Progress(for reassessment Improved documentation) Nutrition Intervention Nutrition Support: Continue Jevity 1.2 Louie @ 56 ml/hr. Flush: 90 ml water Q 4 hr. Kcal 1,600 Protein (gm) 74 Carbohydrates (gm) 226 Fat (gm) 52 Fluid (mL) 1,075 Fiber (gm) 24 % RDI: 100% Kcal; 90% AA. Goal #1 Provide at least 75% of energy /protein needs through Enteral Feeding during LOS. Follow-Up By: 05/12/21 Additional Comments Continue monitoring TF tolerance and BM.
[2021-05-06] MEDS: VALPROIC ACID 250 MG/5 ML ORAL LIQD PO SCH (22:54)
[2021-05-07] MEDS: FAMOTIDINE 20 MG TAB PO SCH ×3 (02:16→21:55)
[2021-05-07] MEDS: FREE WATER PO SCH ×2 (02:16→05:29)
[2021-05-07] MEDS: ALBUTEROL 2.5 MG/3 ML NEBU IH SCH (02:39)
[2021-05-07 08:10] LABS: INR 1.16 (0.87-1.13)
[2021-05-07 08:11] LABS: Partial Thromboplastin Time 43.8 Sec. (24.2-36.6)
--- NOTE | 2021-05-07 09:50 | Progress Note ---
Assessment and Plan Assessment and plan: --Acute metabolic encephalopathy -CT head negative for acute abnormality -Baseline patient able to perform ADLs -Could be secondary to COVID infection -Neurology consulted, no recommendations at this time -MRI pending Guardian authorization obtained -will continue to monitor --COVID-19 pneumonia; Continue empiric antibiotics, assessed more than 90% Home O2 evaluation prior to discharge Follow cultures, home O2 evaluation --Acute hypoxic respiratory failure Probably due to mucus plugging, COVID-19 pneumonia -currently on supplemental O2, will wean as tolerated -s/p dexamethasone x 10 days & remdesivir 5 days -CTA ordered, negative for PE but shows LLL atelectasis likely 2/2 to mucus plugging -ID following, assistance appreciated -continue levaquin, pulmonary toilet and deep suctioning -Pulmonology following, aggressive chest PT Prone positioning as tolerated --Leukocytosis Probably secondary to steroids and underlying disease process Treat the underlying cause, titrate Solu-Medrol dose decreased --Aspiration precautions Speech therapy evaluation recommended PEG tube placement GI consult for PEG tube placement, Scheduled for PEG tomorrow N.p.o. from midnight --Hypokalemia Closely monitor electrolytes Check magnesium --Hypernatremia 250cc q6h free water flushes will continue to monitor likely 2/2 to lack of oral intake --Severe protein calorie malnutrition BMI 20.3; albumin 2.4 Nutrition consulted continue tube feeding Considering PEG tube placement per GI --Social issues Patient is a [facility] [facility], contact is Ms. Mattson to discuss clinical updates/consent for procedures ([phone]) We will closely monitor the patient and adjust management as needed Plan of care reviewed with the patient and his nurse Disposition Plan: Continue medical management Patient needs PEG placement, consent obtained from the [facility] has given consent for the procedures PEG and MRI We will closely monitor 05/06/2021; patient scheduled for PEG tomorrow N.p.o. status, mild to moderate risk for the procedure No medical contraindication for PEG placement. 05/07/2021; patient scheduled for PEG today Case management working on LTAC versus SNF placement History Interval history: I have seen and examined the patient at the bedside Patient's chart and medications reviewed Scheduled for PEG tube placement anette Hospitalist Physical - Constitutional Vitals: Temp Pulse Resp BP Pulse Ox 98.2 F 127 H 18 106/61 99 05/07/21 04:58 05/07/21 04:58 05/07/21 04:58 05/07/21 04:58 05/07/21 04:58 General appearance: Present: no acute distress, cachectic, other (Nonverbal, confused) - EENT Eyes: Present: PERRL, EOM intact - Neck Neck: Present: supple, normal ROM - Respiratory Respiratory effort: normal Respiratory: bilateral: diminished, negative: rales, rhonchi, wheezing - Cardiovascular Rhythm: regular Heart Sounds: Present: S1 & S2 - Extremities Extremities: no ischemia, No edema - Abdominal General gastrointestinal: soft, non-tender, non-distended, normal bowel sounds - Integumentary Integumentary: Present: clear, warm - Psychiatric Psychiatric: appropriate mood/affect, cooperative - Neurologic Neurologic: CNII-XII intact, moves all extremities HEART Score - HEART Score Age: 45-65 Risk factors: 1-2 risk factors - Critical Actions Critical Actions: 0-3 pts:0.9-1.7%risk of adverse cardiac event.Candidate for discharge Results - Labs CBC & Chem 7: 05/06/21 07:02 05/03/21 09:20 Labs: Laboratory Last Values WBC 11.7 K/mm3 (4.5-11.0) H 05/06/21 07:02 RBC 3.68 M/mm3 (3.65-5.03) 05/06/21 07:02 Hgb 12.1 gm/dl (11.8-15.2) 05/06/21 07:02 Hct 36.5 % (35.5-45.6) 05/06/21 07:02 MCV 99 fl (84-94) H 05/06/21 07:02 MCH 33 pg (28-32) H 05/06/21 07:02 MCHC 33 % (32-34) 05/06/21 07:02 RDW 15.5 % (13.2-15.2) H 05/06/21 07:02 Plt Count 148 K/mm3 (140-440) 05/06/21 07:02 Lymph % (Auto) 5.9 % (13.4-35.0) L 04/23/21 09:24 [place] % (Auto) Gas Pipe Layer 04/25/21 06:24 Eos % (Auto) 0.0 % (0.0-4.3) 04/23/21 09:24 Baso % (Auto) 0.0 % (0.0-1.8) 04/23/21 09:24 Lymph # (Auto) 0.5 K/mm3 (1.2-5.4) L 04/23/21 09:24 [place] # (Auto) 0.8 K/mm3 (0.0-0.8) 04/23/21 09:24 Eos # (Auto) 0.0 K/mm3 (0.0-0.4) 04/23/21 09:24 Baso # (Auto) 0.0 K/mm3 (0.0-0.1) 04/23/21 09:24 Add Manual Diff Complete 05/06/21 07:02 Total Counted 100 05/06/21 07:02 Seg Neutrophils % Gas Pipe Layer 04/28/21 08:03 Seg Neuts % (Manual) 82.0 % (40.0-70.0) H 05/06/21 07:02 Band Neutrophils % 9.0 % 05/06/21 07:02 Lymphocytes % (Manual) 4.0 % (13.4-35.0) L 05/06/21 07:02 Reactive Lymphs % (Man) 0 % 05/06/21 07:02 Monocytes % (Manual) 5.0 % (0.0-7.3) 05/06/21 07:02 Eosinophils % (Manual) 0 % (0.0-4.3) 05/06/21 07:02 Basophils % (Manual) 0 % (0.0-1.8) 05/06/21 07:02 Metamyelocytes % 0 % 05/06/21 07:02 Myelocytes % 0 % 05/06/21 07:02 Promyelocytes % 0 % 05/06/21 07:02 Blast Cells % 0 % 05/06/21 07:02 Nucleated RBC % Not Reportable 05/06/21 07:02 Seg Neutrophils # 7.2 K/mm3 (1.8-7.7) 04/23/21 09:24 Seg Neutrophils # Man 9.6 K/mm3 (1.8-7.7) H 05/06/21 07:02 Band Neutrophils # 1.1 K/mm3 05/06/21 07:02 Lymphocytes # (Manual) 0.5 K/mm3 (1.2-5.4) L 05/06/21 07:02 Abs React Lymphs (Man) 0.0 K/mm3 05/06/21 07:02 Monocytes # (Manual) 0.6 K/mm3 (0.0-0.8) 05/06/21 07:02 Eosinophils # (Manual) 0.0 K/mm3 (0.0-0.4) 05/06/21 07:02 Basophils # (Manual) 0.0 K/mm3 (0.0-0.1) 05/06/21 07:02 Metamyelocytes # 0.0 K/mm3 05/06/21 07:02 Myelocytes # 0.0 K/mm3 05/06/21 07:02 Promyelocytes # 0.0 K/mm3 05/06/21 07:02 Blast Cells # 0.0 K/mm3 05/06/21 07:02 WBC Morphology Not Reportable 05/06/21 07:02 Hypersegmented Neuts Not Reportable 05/06/21 07:02 Hyposegmented Neuts Not Reportable 05/06/21 07:02 Hypogranular Neuts Not Reportable 05/06/21 07:02 Smudge Cells Not Reportable 05/06/21 07:02 Toxic Granulation Not Reportable 05/06/21 07:02 Toxic Vacuolation Not Reportable 05/06/21 07:02 Dohle Bodies Not Reportable 05/06/21 07:02 Pelger-Huet Anomaly Not Reportable 05/06/21 07:02 Jeannette Rods Not Reportable 05/06/21 07:02 Platelet Estimate Consistent w auto 05/06/21 07:02 Clumped Platelets Not Reportable 05/06/21 07:02 Plt Clumps, EDTA Not Reportable 05/06/21 07:02 Large Platelets Not Reportable 05/06/21 07:02 Giant Platelets Not Reportable 05/06/21 07:02 Platelet Satelliting Not Reportable 05/06/21 07:02 Plt Morphology Comment Not Reportable 05/06/21 07:02 RBC Morphology Normal 05/06/21 07:02 Dimorphic RBCs Not Reportable 05/06/21 07:02 Polychromasia Not Reportable 05/06/21 07:02 Hypochromasia Not Reportable 05/06/21 07:02 Poikilocytosis Not Reportable 05/06/21 07:02 Anisocytosis Not Reportable 05/06/21 07:02 Microcytosis Not Reportable 05/06/21 07:02 Macrocytosis Not Reportable 05/06/21 07:02 Spherocytes Not Reportable 05/06/21 07:02 Pappenheimer Bodies Not Reportable 05/06/21 07:02 Sickle Cells Not Reportable 05/06/21 07:02 Target Cells Not Reportable 05/06/21 07:02 Tear Drop Cells Not Reportable 05/06/21 07:02 Ovalocytes Not Reportable 05/06/21 07:02 Helmet Cells Not Reportable 05/06/21 07:02 William-Amory Bodies Not Reportable 05/06/21 07:02 [place] Rings Not Reportable 05/06/21 07:02 Bynum Cells Not Reportable 05/06/21 07:02 Bite Cells Not Reportable 05/06/21 07:02 Crenated Cell Not Reportable 05/06/21 07:02 Elliptocytes Not Reportable 05/06/21 07:02 Acanthocytes (Spur) Not Reportable 05/06/21 07:02 Rouleaux Not Reportable 05/06/21 07:02 Hemoglobin C Crystals Not Reportable 05/06/21 07:02 Schistocytes Not Reportable 05/06/21 07:02 Malaria parasites Not Reportable 05/06/21 07:02 ESR 60 mm/Hr (0-20) 05/04/21 13:28 Steve Bodies Not Reportable 05/06/21 07:02 Hem Pathologist Commnt No 05/06/21 07:02 PT 16.0 Sec. (12.2-14.9) H 05/07/21 07:28 INR 1.16 (0.87-1.13) H 05/07/21 07:28 APTT 43.8 Sec. (24.2-36.6) H 05/07/21 07:28 D-Dimer 690.97 ng/mlDDU (0-234) H 04/30/21 06:20 Sodium 149 mmol/L (137-145) H 05/03/21 09:20 Potassium 3.5 mmol/L (3.6-5.0) L 05/03/21 09:20 Chloride 110.0 mmol/L (98-107) H 05/03/21 09:20 Carbon Dioxide 27 mmol/L (22-30) 05/03/21 09:20 Anion Gap 16 mmol/L 05/03/21 09:20 BUN 16 mg/dL (9-20) 05/03/21 09:20 Creatinine 0.3 mg/dL (0.8-1.3) L 05/03/21 09:20 Estimated GFR > 60 ml/min 05/03/21 09:20 BUN/Creatinine Ratio 53 % 05/03/21 09:20 Glucose 113 mg/dL (75-100) H 05/03/21 09:20 POC Glucose 105 mg/dL (70-105) 05/07/21 07:34 Lactic Acid 1.20 mmol/L (0.7-2.0) 04/21/21 20:26 Calcium 8.0 mg/dL (8.4-10.2) L 05/03/21 09:20 Phosphorus 2.30 mg/dL (2.5-4.5) L 04/23/21 09:24 Magnesium 1.80 mg/dL (1.7-2.3) 04/23/21 09:24 Ferritin 930.1 ng/mL (30.0-300.0) H 04/30/21 06:20 Total Bilirubin 0.70 mg/dL (0.1-1.2) 04/29/21 04:00 AST 63 units/L (5-40) H 04/29/21 04:00 ALT 37 units/L (7-56) 04/29/21 04:00 Alkaline Phosphatase 58 units/L (35-129) 04/29/21 04:00 Lactate Dehydrogenase 423 units/L (91-180) H 04/30/21 06:20 C-Reactive Protein 15.40 mg/dL (0.00-1.30) H 05/04/21 13:28 Total Protein 5.6 g/dL (6.3-8.2) L 04/29/21 04:00 Albumin 2.4 g/dL (3.9-5) L 04/29/21 04:00 Albumin/Globulin Ratio 0.8 % 04/29/21 04:00 Lipase 7 units/L (13-60) L 04/21/21 16:08 Vitamin B12 1039 pg/mL (211-911) H 04/24/21 07:56 Procalcitonin 0.92 ng/mL (<0.15) 05/05/21 09:30 TSH 1.330 mlU/mL (0.270-4.200) 04/24/21 07:56 Free T4 1.03 ng/dL (0.76-1.46) 04/24/21 07:56 Urine Color [place] (Yellow) 04/21/21 Unknown Urine Turbidity Clear (Clear) 04/21/21 Unknown Urine pH 5.0 (5.0-7.0) 04/21/21 Unknown Ur Specific [place] 1.027 (1.003-1.030) 04/21/21 Unknown Urine Protein 100 mg/dl mg/dL (Negative) 04/21/21 Unknown Urine Glucose (UA) Neg mg/dL (Negative) 04/21/21 Unknown Urine Ketones 20 mg/dL (Negative) 04/21/21 Unknown Urine Blood Mod (Negative) 04/21/21 Unknown Urine Nitrite Neg (Negative) 04/21/21 Unknown Urine Bilirubin Neg (Negative) 04/21/21 Unknown Urine Urobilinogen 4.0 mg/dL (<2.0) 04/21/21 Unknown Ur Leukocyte Esterase Neg (Negative) 04/21/21 Unknown Urine WBC (Auto) < 1.0 /HPF (0.0-6.0) 04/21/21 Unknown Urine RBC (Auto) < 1.0 /HPF (0.0-6.0) 04/21/21 Unknown Urine Mucus Few /HPF 04/21/21 Unknown Valproic Acid 10.9 ug/mL (50-100) L 05/04/21 13:28 Coronavirus (PCR) Positive (Negative) A 04/22/21 Unknown [place]/IV: Voiding Method Diaper Active Medications - Current Medications Current Medications: Generic Name Dose Route Start Last Admin Trade Name Freq PRN Reason Stop Dose Admin Acetaminophen 650 mg 04/21/21 22:31 04/23/21 12:43 Acetaminophen 325 Mg Tab PO 650 mg Q4H PRN Administration Pain MILD(1-3)/Fever >100.5/RAY Albuterol 2 puff 05/07/21 08:00 Albuterol 8.5 Gm Mdi Inhalation IH 05/12/21 07:59 Q6HRT [facility] Famotidine 20 mg 04/22/21 10:00 05/07/21 02:16 Famotidine 20 Mg Tab PO Not Given BID [facility] Glycopyrrolate 2 mg 05/01/21 14:00 05/06/21 22:54 Glycopyrrolate 2 Mg Tab PO Not Given BID [facility] Guaifenesin 200 mg 04/24/21 08:28 05/04/21 04:48 Guaifenesin 100 Mg/5 Ml Oral Liqd PO 200 mg Q4H PRN Administration Cough Metoclopramide HCl 10 mg 04/21/21 22:31 Metoclopramide 10 Mg/2 Ml Inj IV Q6H PRN Nausea And Vomiting Metoprolol Tartrate 12.5 mg 05/04/21 22:00 05/06/21 22:54 Metoprolol Tartrate 25 Mg Tab PO Not Given BID [facility] Metoprolol Tartrate 2.5 mg 05/06/21 16:12 Metoprolol Tartrate 5 Mg/5 Ml Inj IV Q6HR PRN Tachyarrhythmias Ondansetron HCl 4 mg 04/21/21 22:31 Ondansetron 4 Mg/2 Ml Inj IV Q8H PRN Nausea And Vomiting Oxycodone/Acetaminophen 1 tab 04/21/21 22:31 04/22/21 22:35 Oxycodone /Acetaminophen 5-325mg Tab PO 1 tab Q6H PRN Administration Pain, Moderate (4-6) Sodium Chloride 10 ml 04/22/21 10:00 05/07/21 05:30 Sodium Chloride 0.9% 10 Ml Flush Syringe IV 10 ml BID EDDIE Administration Sodium Chloride 10 ml 04/21/21 22:31 Sodium Chloride 0.9% 10 Ml Flush Syringe IV PRN PRN LINE FLUSH Valproic Acid 250 mg 05/01/21 22:00 05/06/21 22:54 Valproic Acid 250 Mg/5 Ml Oral Liqd PO Not Given QHS [facility] Nutrition/Malnutrition Assess - Dietary Evaluation Nutrition/Malnutrition Findings: Nutrition Notes Start: 04/22/21 18:07 Freq: Status: Active Protocol: Document 05/05/21 08:52 RICKY (Rec: 05/05/21 09:06 RICKY [id number]) Nutrition Notes Initial or Follow up Brief Note Current Diet TF-Jevity 1.2 Louie @ 56 ml/hr ( since B 05/01). Height 6 ft Weight 67.5 kg [place] Body Weight (kg) 80.90 BMI 20.2 Weight change and time frame No body weight change reported . Weight Status Appropriate Subjective/Other Information RD consult for routine F/U on dietary advancement or PEG tube placement. PEG tube still not approved by guardianship, but RN sdtates that Pt is receiving TF and tolerating well at the time. Percent of energy/protein needs met: Prescribed Jevity 1.2 Louie @ 56 ml/hr provides for energy/ protein needs (1,600 Kcal/74 g ) during LOS, 100% Kcal; 90% AA. #1 Nutrition Diagnosis Inadequate protein-energy intake Comments: Pt now receiving TF and tolerating well. Diagnosis Progress(for reassessment Improved documentation) Nutrition Intervention Nutrition Support: Continue Jevity 1.2 Louie @ 56 ml/hr. Flush: 90 ml water Q 4 hr. Kcal 1,600 Protein (gm) 74 Carbohydrates (gm) 226 Fat (gm) 52 Fluid (mL) 1,075 Fiber (gm) 24 % RDI: 100% Kcal; 90% AA. Goal #1 Provide at least 75% of energy /protein needs through Enteral Feeding during LOS. Follow-Up By: 05/12/21 Additional Comments Continue monitoring TF tolerance and BM.
[2021-05-07] MEDS: GLYCOPYRROLATE 2 MG TAB PO SCH ×2 (10:00→21:54)
[2021-05-07] MEDS: METOPROLOL TARTRATE 25 MG TAB PO SCH ×2 (10:00→21:54)
[2021-05-07] MEDS ORDERED: WATER FOR IRRIG STERILE 250 ML BOTTLE IR ONE (10:17)
[2021-05-07] MEDS ORDERED: WATER FOR IRRIG STERILE 1,000 ML BOTTLE ONE (10:17)
[2021-05-07] MEDS: ALBUTEROL 8.5 GM MDI INHALATION IH SCH (10:25)
[2021-05-07] MEDS ORDERED: SODIUM CHLORIDE 0.9% 1000 ML 1,000 ML ONE (10:50)
[2021-05-07] MEDS: METOPROLOL TARTRATE 5 MG/5 ML INJ IV PRN (11:10)
--- NOTE | 2021-05-07 11:29 | Anesthesia Day of Surgery ---
Anesthesia Day of Surgery - Day of Surgery Patient Examined: Yes Patient H&P Reviewed: Yes Patient is NPO: Yes
--- NOTE | 2021-05-07 11:32 | Anesthesia Consultation ---
Anesthesia Consult and Med Hx Date of service: 05/07/21 - Airway Anesthetic Teeth Evaluation: Poor ROM Head & Neck: Adequate Mental/Hyoid Distance: Adequate Mallampati Class: Class III Intubation Access Assessment: Probably Good - Pre-Operative Health Status ASA Pre-Surgery Classification: ASA4 Proposed Anesthetic Plan: MAC - Pulmonary Hx Respiratory Symptoms: Yes (Acute hypoxic respiratory failure) Hx Pneumonia: Yes (COVID + [id number]) - Central Nervous System Hx Neuromuscular Disorder: Yes (Acute metabolic encephalopathy) Hx Psychiatric Problems: No - Other Systems Hx Obesity: No - Additional Comments Anesthesia Medical History Comments: Patient is a herrera of the [facility]
[2021-05-07] MEDS ORDERED: ceFAZolin 1 GM VIAL ONE (11:41)
[2021-05-07] MEDS ORDERED: propofoL 200 MG/20 ML VIAL IV ONE (11:42)
[2021-05-07] MEDS ORDERED: ceFAZolin 1 GM VIAL IV ONE (11:45)
[2021-05-07] MEDS ORDERED: PHENYLEPHRINE/NS 1,000 MCG/10 ML SYRINGE (OR USE) IV ONE (12:02)
--- NOTE | 2021-05-07 12:05 | Post Operative Note ---
Pre-op diagnosis: dysphagia Post-op diagnosis: same Findings: EGD: hiatal hernia - gastritis - negative other - 20 F pull peg placed, bumper 2 1/2 cm Anesthesia: MAC Surgeon: AMADOR RANGEL Estimated blood loss: none Pathology: list Specimen disposition: to lab Condition: stable Disposition: floor
--- NOTE | 2021-05-07 12:49 | Operative Report ---
DATE OF SURGERY: 05/07/2021 PROCEDURE: PEG tube placement. INDICATIONS: 1. Dysphagia. 2. Weight loss. MEDICATIONS: Propofol per [employer]. COMPLICATIONS: None. DESCRIPTION OF PROCEDURE: The patient was brought to procedure suite. The patient had the procedure discussed with herrera of the [facility], who gave permission for the procedure to be performed. The patient was placed in supine position. Mouth block placed in patient's oral cavity. After adequate sedation with medication as above, endoscope placed in the mouth and brought to level of second portion of duodenum. Retroflexion view performed. The patient's vital signs remained stable throughout the procedure. FINDINGS: Small hiatal hernia at gastroesophageal junction 37 cm from the gums. Esophagus otherwise appeared to be normal. Stomach appeared grossly normal. Duodenum appeared to be normal. Retroflexion view performed in the stomach showed no other pathology other than noted above. After this inspection using standard technique and transillumination, area for adequate placement of PEG was found. Using standard technique, a 20-German pull PEG was then placed. Bump was noted at 2.5 cm. Post-procedure appearance was satisfactory. The patient tolerated the procedure well. No complications during the procedure. IMPRESSION: 1. Hiatal hernia. 2. Otherwise, normal esophagogastroduodenoscopy. 3. Percutaneous endoscopic gastrostomy tube placed without obvious complications as noted above. RECOMMENDATIONS: 1. Standard PEG tube orders, see chart. 2. Watch for signs of bleeding or infection. 3. Okay to use PEG in 6 hours. 4. Nutrition consult. 5. We will follow up in a.m. TID: [id number] RECEIPT: [id number] CAB/STD/IQB
[2021-05-07] MEDS ORDERED: SIMPLE SYRUP 15 ML FEEDTUBE PRN ×2 (13:04)
[2021-05-07] MEDS ORDERED: SODIUM BICARBONATE 325 MG TAB FEEDTUBE PRN (13:04)
[2021-05-07] MEDS ORDERED: LIPASE 10,500/PROTEASE 25,000/AMYLASE 43,750 (UNITS) DR CAP FEEDTUBE PRN (13:04)
--- NOTE | 2021-05-07 13:16 | Progress Note ---
Assessment and Plan Cultures: 04/21/2021 blood culture: No growth 04/21/2021 urine culture: No growth 04/22/2021 COVID-19 PCR: Positive 04/28/2021 blood culture: No growth A/P: 66-year-old man unknown past medical history sent to the hospital with COVID-19 pneumonia and acute encephalopathy. #COVID-19 pneumonia: Patient presented with 3 days of symptoms, chest x-ray with diffuse bilateral infiltrates, admission O2 sats decreased on room air. Inflammatory markers elevated. CRP 9.2. #Acute hypoxemic respiratory failure: Likely secondary to COVID-19 infection. CTA on 05/02/2021 showed bilateral pneumonia and complete left lower lobe atelectasis secondary to mucous plugging. Pulmonary following. On NRB. #Acute encephalopathy: May be secondary to acute infection with COVID-19. Also hypernatremic. #Leukocytosis: Likely secondary to steroids. Improved. Recommendations: -Completed steroids, Remdesivir -Chest PT per pulmonary -Completed abx -guarded prognosis Will sign off. Jessica Leija MD, FACP, [facility] O: [phone] F: [phone] Subjective Date of service: 05/07/21 Principal diagnosis: Encephalopathy,COVID-19 Interval history: No fever. Completed antibiotics. Remains on nonrebreather, flow rate decreased to 15 L/min. Had EGD / PEG placement today. Objective - Exam Narrative Exam: Physical Exam (reviewed in chart to minimize risk of transmission) Constitutional: deferred Head, Ears, Nose: deferred Eyes: deferred Neck: deferred Oral: deferred Cardiovascular: deferred Respiratory: deferred GI: deferred Musculoskeletal: deferred Skin: deferred Hem/Lymphatic: deferred Psych: deferred Neurological: deferred - Constitutional Vitals: Vital Signs Temp Pulse Resp BP Pulse Ox 98.3 F 136 H 28 H 94/64 96 05/07/21 11:23 05/07/21 11:23 05/07/21 11:23 05/07/21 11:23 05/07/21 11:23 Temperature -Last 24 Hours Temperature 98.3 F Temperature 98.2 F Temperature 97.2 F Temperature 99.0 F - Labs CBC & Chem 7: 05/06/21 07:02 05/03/21 09:20 Labs: Abnormal lab results 05/07/21 05/07/21 Range/Units 05:00 07:28 PT 16.0 H (12.2-14.9) Sec. INR 1.16 H (0.87-1.13) APTT 43.8 H (24.2-36.6) Sec. POC Glucose 112 H (70-105) mg/dL
--- NOTE | 2021-05-07 14:03 | Progress Note ---
Assessment and Plan 66 y/o male with altered mental status found to be COVID positive, now with worsening respiratory failure. 05/07/21: Continue CPT. Will speak with pharmacy but may need hypertonic saline neb to help induce cough to help expectorate mucous. Ideally should be bronched, but would need to either be intubated or have LMA and doubt GI will allow given COVID positive state. Guarded to poor prognosis. 05/06/21: Please continue CPT multiple times daily. Please document this. Suggest proning patient to help with oxygenation if possible. Guarded prognosis. 05/05/21: Increased CPT to 3-6x daily. Should be done with scheduled albuterol therapy. Please wake patient up for scheduled meds as we are trying to remove mucous and improve oxygenation. Will discuss with RT to pass on to night shit. Prone as much as possible. Daily net negative fluid balance 1. Mucous plug on CTA. Needs CPT but more than daily. Please increase to at least TID 2. Prone as much as possible and sleep prone at night 3. Has already finished steroids 4. Guarded prognosis. Subjective Date of service: 05/07/21 Principal diagnosis: Encephalopathy,COVID-19 Interval history: Patient was off floor for peg placement. Per chart tolerated well. yesterday had tachycardia in the 150's. Given BB by IMS with improvement. Still on HFNC and NRB. Not sure how much CPT is helping. Objective Vital Signs - 12hr 05/07/21 05/07/21 05/07/21 02:00 04:58 08:00 Temperature 98.2 F Pulse Rate 127 H Pulse Rate [ 115 H Anterior Bilateral Throughout] Respiratory 18 Rate Respiratory 27 H Rate [Anterior Bilateral Throughout] Blood Pressure 106/61 O2 Sat by Pulse 95 99 97 Oximetry 05/07/21 05/07/21 05/07/21 11:23 12:10 12:15 Temperature 98.3 F 98.7 F Pulse Rate 136 H 120 H 123 H Pulse Rate [ Anterior Bilateral Throughout] Respiratory 28 H 28 H 28 H Rate Respiratory Rate [Anterior Bilateral Throughout] Blood Pressure 94/64 94/58 95/60 O2 Sat by Pulse 96 98 98 Oximetry 05/07/21 05/07/21 05/07/21 12:20 12:30 12:40 Temperature Pulse Rate 130 H 126 H 123 H Pulse Rate [ Anterior Bilateral Throughout] Respiratory 30 H 28 H 28 H Rate Respiratory Rate [Anterior Bilateral Throughout] Blood Pressure 97/64 93/61 95/61 O2 Sat by Pulse 95 96 100 Oximetry Constitutional: other (on nrb mask sat 100%, opens eyes to tactile stimuli, doesnt follow command ) ENT: oropharynx moist, oropharynx dry Ascultation: Bilateral: rhonchi (sl better) Cardiovascular: regular rate and rhythm, PVC's noted Gastrointestinal: normoactive bowel sounds Integumentary: normal CBC and BMP: 05/06/21 07:02 05/03/21 09:20 ABG, PT/INR, D-dimer: PT/INR, D-dimer PT 16.0 Sec. (12.2-14.9) H 05/07/21 07:28 INR 1.16 (0.87-1.13) H 05/07/21 07:28 D-Dimer 690.97 ng/mlDDU (0-234) H 04/30/21 06:20 Abnormal lab findings: Abnormal Labs 04/21/21 04/21/21 04/22/21 16:08 16:08 00:20 WBC RBC Hgb Hct MCV 96 H MCH MCHC RDW Lymph % (Auto) 8.5 L [place] % (Auto) 15.8 H Lymph # (Auto) 0.9 L [place] # (Auto) 1.7 H Seg Neutrophils % 75.6 H Seg Neuts % (Manual) Lymphocytes % (Manual) Monocytes % (Manual) Seg Neutrophils # 8.0 H Seg Neutrophils # Man Lymphocytes # (Manual) Monocytes # (Manual) PT INR APTT D-Dimer 621.94 H Sodium Potassium Chloride Carbon Dioxide Creatinine 0.6 L Glucose 107 H POC Glucose Calcium 8.3 L Phosphorus Ferritin AST 136 H Lactate Dehydrogenase C-Reactive Protein Total Protein 6.2 L Albumin 3.0 L Lipase 7 L Vitamin B12 Valproic Acid Coronavirus (PCR) 04/22/21 04/22/21 04/22/21 00:20 00:20 06:51 WBC RBC Hgb Hct MCV 95 H MCH MCHC RDW Lymph % (Auto) [place] % (Auto) Lymph # (Auto) [place]ard # (Auto) Seg Neutrophils % Seg Neuts % (Manual) 91.0 H Lymphocytes % (Manual) 1.0 L Monocytes % (Manual) Seg Neutrophils # Seg Neutrophils # Man Lymphocytes # (Manual) 0.1 L Monocytes # (Manual) PT INR APTT D-Dimer Sodium Potassium Chloride Carbon Dioxide Creatinine Glucose POC Glucose Calcium Phosphorus Ferritin 427.3 H AST Lactate Dehydrogenase 379 H C-Reactive Protein 9.20 H Total Protein Albumin Lipase Vitamin B12 Valproic Acid Coronavirus (PCR) 04/22/21 04/22/21 04/23/21 06:51 Unknown 09:24 WBC RBC Hgb Hct MCV 96 H MCH MCHC RDW Lymph % (Auto) 5.9 L [place] % (Auto) 9.3 H Lymph # (Auto) 0.5 L [place] # (Auto) Seg Neutrophils % 84.8 H Seg Neuts % (Manual) Lymphocytes % (Manual) Monocytes % (Manual) Seg Neutrophils # Seg Neutrophils # Man Lymphocytes # (Manual) Monocytes # (Manual) PT INR APTT D-Dimer Sodium Potassium Chloride Carbon Dioxide Creatinine 0.4 L Glucose 114 H POC Glucose Calcium 8.0 L Phosphorus Ferritin AST 116 H Lactate Dehydrogenase C-Reactive Protein Total Protein 5.9 L Albumin 3.0 L Lipase Vitamin B12 Valproic Acid Coronavirus (PCR) Positive A 04/23/21 04/23/21 04/24/21 09:24 22:38 07:56 WBC RBC Hgb Hct MCV MCH MCHC RDW Lymph % (Auto) [place] % (Auto) Lymph # (Auto) [place] # (Auto) Seg Neutrophils % Seg Neuts % (Manual) Lymphocytes % (Manual) Monocytes % (Manual) Seg Neutrophils # Seg Neutrophils # Man Lymphocytes # (Manual) Monocytes # (Manual) PT INR APTT D-Dimer Sodium Potassium 3.5 L Chloride Carbon Dioxide Creatinine 0.5 L Glucose 102 H POC Glucose 111 H Calcium 8.3 L Phosphorus 2.30 L Ferritin AST Lactate Dehydrogenase C-Reactive Protein Total Protein Albumin Lipase Vitamin B12 1039 H Valproic Acid Coronavirus (PCR) 04/24/21 04/24/21 04/24/21 07:56 07:56 21:37 WBC RBC Hgb Hct MCV 95 H MCH MCHC RDW Lymph % (Auto) [place] % (Auto) Lymph # (Auto) [place] # (Auto) Seg Neutrophils % Seg Neuts % (Manual) 80.0 H Lymphocytes % (Manual) 10.0 L Monocytes % (Manual) 10.0 H Seg Neutrophils # Seg Neutrophils # Man Lymphocytes # (Manual) 0.7 L Monocytes # (Manual) PT INR APTT D-Dimer Sodium Potassium Chloride Carbon Dioxide Creatinine 0.4 L Glucose POC Glucose 111 H Calcium Phosphorus Ferritin AST Lactate Dehydrogenase C-Reactive Protein Total Protein Albumin Lipase Vitamin B12 Valproic Acid Coronavirus (PCR) 04/25/21 04/25/21 04/25/21 06:24 06:24 23:13 WBC RBC Hgb Hct 46.6 H MCV MCH MCHC RDW Lymph % (Auto) [place] % (Auto) Lymph # (Auto) [place] # (Auto) Seg Neutrophils % Seg Neuts % (Manual) 83.0 H Lymphocytes % (Manual) 1.0 L Monocytes % (Manual) 9.0 H Seg Neutrophils # Seg Neutrophils # Man Lymphocytes # (Manual) 0.1 L Monocytes # (Manual) PT INR APTT D-Dimer Sodium 136 L 134 L Potassium 3.3 L Chloride Carbon Dioxide 21 L Creatinine 0.3 L 0.4 L Glucose 115 H POC Glucose Calcium 7.7 L Phosphorus Ferritin AST 104 H Lactate Dehydrogenase C-Reactive Protein Total Protein 6.1 L Albumin 2.6 L Lipase Vitamin B12 Valproic Acid Coronavirus (PCR) 04/26/21 04/27/21 04/27/21 06:29 06:31 06:31 WBC 17.6 H RBC Hgb Hct MCV MCH MCHC RDW Lymph % (Auto) [place] % (Auto) Lymph # (Auto) [place] # (Auto) Seg Neutrophils % Seg Neuts % (Manual) 87.0 H Lymphocytes % (Manual) 5.0 L Monocytes % (Manual) Seg Neutrophils # Seg Neutrophils # Man 15.3 H Lymphocytes # (Manual) 0.9 L Monocytes # (Manual) 0.9 H PT INR APTT D-Dimer Sodium Potassium 3.4 L Chloride Carbon Dioxide Creatinine 0.5 L 0.4 L Glucose 112 H 106 H POC Glucose Calcium 8.0 L Phosphorus Ferritin AST 114 H 110 H Lactate Dehydrogenase C-Reactive Protein Total Protein 6.2 L Albumin 2.9 L 2.6 L Lipase Vitamin B12 Valproic Acid Coronavirus (PCR) 04/28/21 04/28/21 04/29/21 08:03 08:03 04:00 WBC 19.8 H 14.0 H RBC Hgb Hct MCV 95 H MCH MCHC RDW Lymph % (Auto) [place] % (Auto) Lymph # (Auto) [place] # (Auto) Seg Neutrophils % Seg Neuts % (Manual) 94.0 H Lymphocytes % (Manual) 1.0 L Monocytes % (Manual) Seg Neutrophils # Seg Neutrophils # Man 18.6 H Lymphocytes # (Manual) 0.2 L Monocytes # (Manual) PT INR APTT D-Dimer Sodium Potassium Chloride Carbon Dioxide Creatinine 0.2 L Glucose 107 H POC Glucose Calcium 8.1 L Phosphorus Ferritin AST 87 H Lactate Dehydrogenase C-Reactive Protein Total Protein 5.1 L Albumin 2.4 L Lipase Vitamin B12 Valproic Acid Coronavirus (PCR) 04/29/21 04/30/21 04/30/21 04:00 06:20 06:20 WBC RBC Hgb Hct MCV MCH MCHC RDW Lymph % (Auto) [place] % (Auto) Lymph # (Auto) [place] # (Auto) Seg Neutrophils % Seg Neuts % (Manual) Lymphocytes % (Manual) Monocytes % (Manual) Seg Neutrophils # Seg Neutrophils # Man Lymphocytes # (Manual) Monocytes # (Manual) PT INR APTT D-Dimer 690.97 H Sodium 148 H Potassium 3.0 L Chloride 110.2 H Carbon Dioxide Creatinine 0.2 L Glucose 130 H POC Glucose Calcium Phosphorus Ferritin 930.1 H AST 63 H Lactate Dehydrogenase C-Reactive Protein Total Protein 5.6 L Albumin 2.4 L Lipase Vitamin B12 Valproic Acid Coronavirus (PCR) 04/30/21 04/30/21 04/30/21 06:20 08:01 08:41 WBC RBC Hgb Hct MCV MCH MCHC RDW Lymph % (Auto) [place] % (Auto) Lymph # (Auto) [place] # (Auto) Seg Neutrophils % Seg Neuts % (Manual) Lymphocytes % (Manual) Monocytes % (Manual) Seg Neutrophils # Seg Neutrophils # Man Lymphocytes # (Manual) Monocytes # (Manual) PT INR APTT D-Dimer Sodium 151 H Potassium 3.3 L Chloride 110.3 H Carbon Dioxide Creatinine 0.3 L Glucose 119 H POC Glucose 119 H Calcium Phosphorus Ferritin AST Lactate Dehydrogenase 423 H C-Reactive Protein 8.90 H Total Protein Albumin Lipase Vitamin B12 Valproic Acid Coronavirus (PCR) 04/30/21 05/01/21 05/01/21 11:14 07:29 07:29 WBC 21.4 H RBC Hgb Hct MCV MCH MCHC RDW Lymph % (Auto) [place] % (Auto) Lymph # (Auto) [place] # (Auto) Seg Neutrophils % Seg Neuts % (Manual) Lymphocytes % (Manual) Monocytes % (Manual) Seg Neutrophils # Seg Neutrophils # Man Lymphocytes # (Manual) Monocytes # (Manual) PT INR APTT D-Dimer Sodium 150 H Potassium 2.7 L* Chloride 111.2 H Carbon Dioxide Creatinine 0.3 L Glucose 162 H POC Glucose 113 H Calcium Phosphorus Ferritin AST Lactate Dehydrogenase C-Reactive Protein Total Protein Albumin Lipase Vitamin B12 Valproic Acid Coronavirus (PCR) 05/01/21 05/01/21 05/01/21 07:33 11:28 17:54 WBC RBC Hgb Hct MCV MCH MCHC RDW Lymph % (Auto) [place] % (Auto) Lymph # (Auto) [place] # (Auto) Seg Neutrophils % Seg Neuts % (Manual) Lymphocytes % (Manual) Monocytes % (Manual) Seg Neutrophils # Seg Neutrophils # Man Lymphocytes # (Manual) Monocytes # (Manual) PT INR APTT D-Dimer Sodium Potassium Chloride Carbon Dioxide Creatinine Glucose POC Glucose 147 H 152 H 165 H Calcium Phosphorus Ferritin AST Lactate Dehydrogenase C-Reactive Protein Total Protein Albumin Lipase Vitamin B12 Valproic Acid Coronavirus (PCR) 05/02/21 05/02/21 05/02/21 00:23 05:28 05:28 WBC 18.9 H RBC Hgb Hct MCV 95 H MCH MCHC 31 L RDW Lymph % (Auto) [place] % (Auto) Lymph # (Auto) [place] # (Auto) Seg Neutrophils % Seg Neuts % (Manual) Lymphocytes % (Manual) Monocytes % (Manual) Seg Neutrophils # Seg Neutrophils # Man Lymphocytes # (Manual) Monocytes # (Manual) PT INR APTT D-Dimer Sodium 151 H Potassium Chloride 111.4 H Carbon Dioxide Creatinine 0.3 L Glucose 132 H POC Glucose 160 H Calcium 8.3 L Phosphorus Ferritin AST Lactate Dehydrogenase C-Reactive Protein Total Protein Albumin Lipase Vitamin B12 Valproic Acid Coronavirus (PCR) 05/02/21 05/02/21 05/02/21 07:42 11:31 16:39 WBC RBC Hgb Hct MCV MCH MCHC RDW Lymph % (Auto) [place] % (Auto) Lymph # (Auto) [place] # (Auto) Seg Neutrophils % Seg Neuts % (Manual) Lymphocytes % (Manual) Monocytes % (Manual) Seg Neutrophils # Seg Neutrophils # Man Lymphocytes # (Manual) Monocytes # (Manual) PT INR APTT D-Dimer Sodium Potassium Chloride Carbon Dioxide Creatinine Glucose POC Glucose 170 H 131 H 140 H Calcium Phosphorus Ferritin AST Lactate Dehydrogenase C-Reactive Protein Total Protein Albumin Lipase Vitamin B12 Valproic Acid Coronavirus (PCR) 05/02/21 05/03/21 05/03/21 22:42 06:11 09:20 WBC 16.2 H RBC 3.51 L Hgb 10.5 L Hct 33.1 L MCV MCH MCHC RDW 15.4 H Lymph % (Auto) [place] % (Auto) Lymph # (Auto) [place] # (Auto) Seg Neutrophils % Seg Neuts % (Manual) Lymphocytes % (Manual) Monocytes % (Manual) Seg Neutrophils # Seg Neutrophils # Man Lymphocytes # (Manual) Monocytes # (Manual) PT INR APTT D-Dimer Sodium Potassium Chloride Carbon Dioxide Creatinine Glucose POC Glucose 107 H 108 H Calcium Phosphorus Ferritin AST Lactate Dehydrogenase C-Reactive Protein Total Protein Albumin Lipase Vitamin B12 Valproic Acid Coronavirus (PCR) 05/03/21 05/03/21 05/03/21 09:20 11:01 17:33 WBC RBC Hgb Hct MCV MCH MCHC RDW Lymph % (Auto) [place] % (Auto) Lymph # (Auto) [place] # (Auto) Seg Neutrophils % Seg Neuts % (Manual) Lymphocytes % (Manual) Monocytes % (Manual) Seg Neutrophils # Seg Neutrophils # Man Lymphocytes # (Manual) Monocytes # (Manual) PT INR APTT D-Dimer Sodium 149 H Potassium 3.5 L Chloride 110.0 H Carbon Dioxide Creatinine 0.3 L Glucose 113 H POC Glucose 146 H 118 H Calcium 8.0 L Phosphorus Ferritin AST Lactate Dehydrogenase C-Reactive Protein Total Protein Albumin Lipase Vitamin B12 Valproic Acid Coronavirus (PCR) 05/04/21 05/04/21 05/04/21 05:51 13:28 13:28 WBC RBC Hgb Hct MCV MCH MCHC RDW Lymph % (Auto) [place] % (Auto) Lymph # (Auto) [place] # (Auto) Seg Neutrophils % Seg Neuts % (Manual) Lymphocytes % (Manual) Monocytes % (Manual) Seg Neutrophils # Seg Neutrophils # Man Lymphocytes # (Manual) Monocytes # (Manual) PT INR APTT D-Dimer Sodium Potassium Chloride Carbon Dioxide Creatinine Glucose POC Glucose 143 H Calcium Phosphorus Ferritin AST Lactate Dehydrogenase C-Reactive Protein 15.40 H Total Protein Albumin Lipase Vitamin B12 Valproic Acid 10.9 L Coronavirus (PCR) 05/04/21 05/04/21 05/05/21 17:30 23:53 11:23 WBC RBC Hgb Hct MCV MCH MCHC RDW Lymph % (Auto) [place] % (Auto) Lymph # (Auto) [place] # (Auto) Seg Neutrophils % Seg Neuts % (Manual) Lymphocytes % (Manual) Monocytes % (Manual) Seg Neutrophils # Seg Neutrophils # Man Lymphocytes # (Manual) Monocytes # (Manual) PT INR APTT D-Dimer Sodium Potassium Chloride Carbon Dioxide Creatinine Glucose POC Glucose 110 H 128 H 121 H Calcium Phosphorus Ferritin AST Lactate Dehydrogenase C-Reactive Protein Total Protein Albumin Lipase Vitamin B12 Valproic Acid Coronavirus (PCR) 05/05/21 05/05/21 05/06/21 16:26 21:24 07:02 WBC 11.7 H RBC Hgb Hct MCV 99 H MCH 33 H MCHC RDW 15.5 H Lymph % (Auto) [place] % (Auto) Lymph # (Auto) [place] # (Auto) Seg Neutrophils % Seg Neuts % (Manual) 82.0 H Lymphocytes % (Manual) 4.0 L Monocytes % (Manual) Seg Neutrophils # Seg Neutrophils # Man 9.6 H Lymphocytes # (Manual) 0.5 L Monocytes # (Manual) PT INR APTT D-Dimer Sodium Potassium Chloride Carbon Dioxide Creatinine Glucose POC Glucose 113 H 130 H Calcium Phosphorus Ferritin AST Lactate Dehydrogenase C-Reactive Protein Total Protein Albumin Lipase Vitamin B12 Valproic Acid Coronavirus (PCR) 05/07/21 05/07/21 05:00 07:28 WBC RBC Hgb Hct MCV MCH MCHC RDW Lymph % (Auto) [place] % (Auto) Lymph # (Auto) [place] # (Auto) Seg Neutrophils % Seg Neuts % (Manual) Lymphocytes % (Manual) Monocytes % (Manual) Seg Neutrophils # Seg Neutrophils # Man Lymphocytes # (Manual) Monocytes # (Manual) PT 16.0 H INR 1.16 H APTT 43.8 H D-Dimer Sodium Potassium Chloride Carbon Dioxide Creatinine Glucose POC Glucose 112 H Calcium Phosphorus Ferritin AST Lactate Dehydrogenase C-Reactive Protein Total Protein Albumin Lipase Vitamin B12 Valproic Acid Coronavirus (PCR)
--- NOTE | 2021-05-07 16:34 | Post Anesthesia Evaluation ---
- Post Anesthesia Evaluation Patient Participated: Yes Airway Patent: Yes Stable Respiratory Function: Yes Nausea/Vomiting: No Temp > 96.8F: Yes Pain Manageable: Yes Adequeate Hydration: Yes Anesthesia Complications: No Block Receding Appropriately: Not Applicable Patient on Ventilator: No
[2021-05-07] MEDS: VALPROIC ACID 250 MG/5 ML ORAL LIQD PO SCH (21:54)
[2021-05-08] MEDS: ALBUTEROL 8.5 GM MDI INHALATION IH SCH ×4 (00:09→22:09)
[2021-05-08] MEDS: FREE WATER PO SCH ×5 (00:20→19:29)
--- NOTE | 2021-05-08 09:32 | Progress Note ---
Assessment and Plan Assessment and plan: Patient remains on high flow nasal cannula oxygen 40 L/90% FiO2/O2 sats 95 Aggressive CPT. Unable to wean off HF NC Status post PEG placement, tube feedings --Aspiration precautions Speech evaluated recommended PEG GI evaluated status post PEG placement 05/07/2021 Started tube feeding, tolerating well --Acute metabolic encephalopathy -CT head negative for acute abnormality -Baseline patient able to perform ADLs -Could be secondary to COVID infection -Neurology consulted, no recommendations at this time -MRI pending Guardian authorization obtained -will continue to monitor --COVID-19 pneumonia; Continue empiric antibiotics, assessed more than 90% Home O2 evaluation prior to discharge Follow cultures, home O2 evaluation --Acute hypoxic respiratory failure/critically ill On continuous HFNC 40 L, unable to wean, poor prognosis Pulmonary following Aggressive chest therapy Probably due to mucus plugging, COVID-19 pneumonia -currently on supplemental O2, will wean as tolerated -s/p dexamethasone x 10 days & remdesivir 5 days -CTA ordered, negative for PE but shows LLL atelectasis likely 2/2 to mucus plugging -ID following, assistance appreciated -continue levaquin, pulmonary toilet and deep suctioning -Pulmonology following, aggressive chest PT Prone positioning as tolerated --Leukocytosis Probably secondary to steroids and underlying disease process Treat the underlying cause, titrate Solu-Medrol dose decreased --Hypokalemia Closely monitor electrolytes Check magnesium --Hypernatremia 250cc q6h free water flushes will continue to monitor likely 2/2 to lack of oral intake --Severe protein calorie malnutrition BMI 20.3; albumin 2.4 Nutrition consulted continue tube feeding Considering PEG tube placement per GI --Social issues Patient is a [place] of [facility], contact is Ms. Mattson to discuss clinical updates/consent for procedures ([phone]) We will closely monitor the patient and adjust management as needed Plan of care reviewed with the patient and his nurse Disposition Plan: Continue medical management Patient needs PEG placement, consent obtained from the [place] [facility] the [facility] of the [facility] has given consent for the procedures PEG and MRI We will closely monitor 05/06/2021; patient scheduled for PEG tomorrow N.p.o. status, mild to moderate risk for the procedure No medical contraindication for PEG placement. 05/07/2021; patient scheduled for PEG today Case management working on LTAC versus SNF placement 05/08/2021; status post PEG placement yesterday Start tube feeds per protocol, continuous high flow nasal cannula oxygen 40 L Unable to wean, very poor prognosis, pulmonary following, pending LTAC evaluation Considering hospice will discuss with [place] [facility] the [facility], Ms. Twila Brannon . Closely monitor the patient and adjust management as needed Plan of care reviewed with the patient his nurse, case management team History Interval history: I have seen and examined the patient at the bedside Isolation precautions PPE protocols followed No new complaints, remains on high flow nasal cannula oxygen 40/90/95 PEG was placed yesterday started on feeds Hospitalist Physical - Constitutional Vitals: Temp Pulse Resp BP Pulse Ox 99.4 F 145 H 20 118/72 96 05/08/21 05:56 05/08/21 08:19 05/08/21 05:56 05/08/21 05:56 05/08/21 08:19 General appearance: Present: mild distress, cachectic, other (Nonverbal, confused) - EENT Eyes: Present: PERRL, EOM intact - Neck Neck: Present: supple, normal ROM - Respiratory Respiratory effort: normal Respiratory: bilateral: diminished, rhonchi, negative: rales, wheezing - Cardiovascular Rhythm: regular Heart Sounds: Present: S1 & S2 - Extremities Extremities: no ischemia, No edema - Abdominal General gastrointestinal: soft, non-tender, non-distended, normal bowel sounds, other (PEG tube in place) - Integumentary Integumentary: Present: clear, warm - Psychiatric Psychiatric: other - Neurologic Neurologic: moves all extremities (Confused and agitated) HEART Score - HEART Score Age: 45-65 Risk factors: 1-2 risk factors - Critical Actions Critical Actions: 0-3 pts:0.9-1.7%risk of adverse cardiac event.Candidate for discharge Results - Labs CBC & Chem 7: 05/06/21 07:02 05/03/21 09:20 Labs: Laboratory Last Values WBC 11.7 K/mm3 (4.5-11.0) H 05/06/21 07:02 RBC 3.68 M/mm3 (3.65-5.03) 05/06/21 07:02 Hgb 12.1 gm/dl (11.8-15.2) 05/06/21 07:02 Hct 36.5 % (35.5-45.6) 05/06/21 07:02 MCV 99 fl (84-94) H 05/06/21 07:02 MCH 33 pg (28-32) H 05/06/21 07:02 MCHC 33 % (32-34) 05/06/21 07:02 RDW 15.5 % (13.2-15.2) H 05/06/21 07:02 Plt Count 148 K/mm3 (140-440) 05/06/21 07:02 Lymph % (Auto) 5.9 % (13.4-35.0) L 04/23/21 09:24 [place] % (Auto) Digital Ad Trafficker 04/25/21 06:24 Eos % (Auto) 0.0 % (0.0-4.3) 04/23/21 09:24 Baso % (Auto) 0.0 % (0.0-1.8) 04/23/21 09:24 Lymph # (Auto) 0.5 K/mm3 (1.2-5.4) L 04/23/21 09:24 Shelby # (Auto) 0.8 K/mm3 (0.0-0.8) 04/23/21 09:24 Eos # (Auto) 0.0 K/mm3 (0.0-0.4) 04/23/21 09:24 Baso # (Auto) 0.0 K/mm3 (0.0-0.1) 04/23/21 09:24 Add Manual Diff Complete 05/06/21 07:02 Total Counted 100 05/06/21 07:02 Seg Neutrophils % Digital Ad Trafficker 04/28/21 08:03 Seg Neuts % (Manual) 82.0 % (40.0-70.0) H 05/06/21 07:02 Band Neutrophils % 9.0 % 05/06/21 07:02 Lymphocytes % (Manual) 4.0 % (13.4-35.0) L 05/06/21 07:02 Reactive Lymphs % (Man) 0 % 05/06/21 07:02 Monocytes % (Manual) 5.0 % (0.0-7.3) 05/06/21 07:02 Eosinophils % (Manual) 0 % (0.0-4.3) 05/06/21 07:02 Basophils % (Manual) 0 % (0.0-1.8) 05/06/21 07:02 Metamyelocytes % 0 % 05/06/21 07:02 Myelocytes % 0 % 05/06/21 07:02 Promyelocytes % 0 % 05/06/21 07:02 Blast Cells % 0 % 05/06/21 07:02 Nucleated RBC % Not Reportable 05/06/21 07:02 Seg Neutrophils # 7.2 K/mm3 (1.8-7.7) 04/23/21 09:24 Seg Neutrophils # Man 9.6 K/mm3 (1.8-7.7) H 05/06/21 07:02 Band Neutrophils # 1.1 K/mm3 05/06/21 07:02 Lymphocytes # (Manual) 0.5 K/mm3 (1.2-5.4) L 05/06/21 07:02 Abs React Lymphs (Man) 0.0 K/mm3 05/06/21 07:02 Monocytes # (Manual) 0.6 K/mm3 (0.0-0.8) 05/06/21 07:02 Eosinophils # (Manual) 0.0 K/mm3 (0.0-0.4) 05/06/21 07:02 Basophils # (Manual) 0.0 K/mm3 (0.0-0.1) 05/06/21 07:02 Metamyelocytes # 0.0 K/mm3 05/06/21 07:02 Myelocytes # 0.0 K/mm3 05/06/21 07:02 Promyelocytes # 0.0 K/mm3 05/06/21 07:02 Blast Cells # 0.0 K/mm3 05/06/21 07:02 WBC Morphology Not Reportable 05/06/21 07:02 Hypersegmented Neuts Not Reportable 05/06/21 07:02 Hyposegmented Neuts Not Reportable 05/06/21 07:02 Hypogranular Neuts Not Reportable 05/06/21 07:02 Smudge Cells Not Reportable 05/06/21 07:02 Toxic Granulation Not Reportable 05/06/21 07:02 Toxic Vacuolation Not Reportable 05/06/21 07:02 Dohle Bodies Not Reportable 05/06/21 07:02 Pelger-Huet Anomaly Not Reportable 05/06/21 07:02 Jeannette Rods Not Reportable 05/06/21 07:02 Platelet Estimate Consistent w auto 05/06/21 07:02 Clumped Platelets Not Reportable 05/06/21 07:02 Plt Clumps, EDTA Not Reportable 05/06/21 07:02 Large Platelets Not Reportable 05/06/21 07:02 Giant Platelets Not Reportable 05/06/21 07:02 Platelet Satelliting Not Reportable 05/06/21 07:02 Plt Morphology Comment Not Reportable 05/06/21 07:02 RBC Morphology Normal 05/06/21 07:02 Dimorphic RBCs Not Reportable 05/06/21 07:02 Polychromasia Not Reportable 05/06/21 07:02 Hypochromasia Not Reportable 05/06/21 07:02 Poikilocytosis Not Reportable 05/06/21 07:02 Anisocytosis Not Reportable 05/06/21 07:02 Microcytosis Not Reportable 05/06/21 07:02 Macrocytosis Not Reportable 05/06/21 07:02 Spherocytes Not Reportable 05/06/21 07:02 Pappenheimer Bodies Not Reportable 05/06/21 07:02 Sickle Cells Not Reportable 05/06/21 07:02 Target Cells Not Reportable 05/06/21 07:02 Tear Drop Cells Not Reportable 05/06/21 07:02 Ovalocytes Not Reportable 05/06/21 07:02 Helmet Cells Not Reportable 05/06/21 07:02 [place] Bodies Not Reportable 05/06/21 07:02 [place] Rings Not Reportable 05/06/21 07:02 Canelo Cells Not Reportable 05/06/21 07:02 Bite Cells Not Reportable 05/06/21 07:02 Crenated Cell Not Reportable 05/06/21 07:02 Elliptocytes Not Reportable 05/06/21 07:02 Acanthocytes (Spur) Not Reportable 05/06/21 07:02 Rouleaux Not Reportable 05/06/21 07:02 Hemoglobin C Crystals Not Reportable 05/06/21 07:02 Schistocytes Not Reportable 05/06/21 07:02 Malaria parasites Not Reportable 05/06/21 07:02 ESR 60 mm/Hr (0-20) 05/04/21 13:28 Steve Bodies Not Reportable 05/06/21 07:02 Hem Pathologist Commnt No 05/06/21 07:02 PT 16.0 Sec. (12.2-14.9) H 05/07/21 07:28 INR 1.16 (0.87-1.13) H 05/07/21 07:28 APTT 43.8 Sec. (24.2-36.6) H 05/07/21 07:28 D-Dimer 690.97 ng/mlDDU (0-234) H 04/30/21 06:20 Sodium 149 mmol/L (137-145) H 05/03/21 09:20 Potassium 3.5 mmol/L (3.6-5.0) L 05/03/21 09:20 Chloride 110.0 mmol/L (98-107) H 05/03/21 09:20 Carbon Dioxide 27 mmol/L (22-30) 05/03/21 09:20 Anion Gap 16 mmol/L 05/03/21 09:20 BUN 16 mg/dL (9-20) 05/03/21 09:20 Creatinine 0.3 mg/dL (0.8-1.3) L 05/03/21 09:20 Estimated GFR > 60 ml/min 05/03/21 09:20 BUN/Creatinine Ratio 53 % 05/03/21 09:20 Glucose 113 mg/dL (75-100) H 05/03/21 09:20 POC Glucose 158 mg/dL (70-105) H 05/08/21 08:11 Lactic Acid 1.20 mmol/L (0.7-2.0) 04/21/21 20:26 Calcium 8.0 mg/dL (8.4-10.2) L 05/03/21 09:20 Phosphorus 2.30 mg/dL (2.5-4.5) L 04/23/21 09:24 Magnesium 1.80 mg/dL (1.7-2.3) 04/23/21 09:24 Ferritin 930.1 ng/mL (30.0-300.0) H 04/30/21 06:20 Total Bilirubin 0.70 mg/dL (0.1-1.2) 04/29/21 04:00 AST 63 units/L (5-40) H 04/29/21 04:00 ALT 37 units/L (7-56) 04/29/21 04:00 Alkaline Phosphatase 58 units/L (35-129) 04/29/21 04:00 Lactate Dehydrogenase 423 units/L (91-180) H 04/30/21 06:20 C-Reactive Protein 15.40 mg/dL (0.00-1.30) H 05/04/21 13:28 Total Protein 5.6 g/dL (6.3-8.2) L 04/29/21 04:00 Albumin 2.4 g/dL (3.9-5) L 04/29/21 04:00 Albumin/Globulin Ratio 0.8 % 04/29/21 04:00 Lipase 7 units/L (13-60) L 04/21/21 16:08 Vitamin B12 1039 pg/mL (211-911) H 04/24/21 07:56 Procalcitonin 0.92 ng/mL (<0.15) 05/05/21 09:30 TSH 1.330 mlU/mL (0.270-4.200) 04/24/21 07:56 Free T4 1.03 ng/dL (0.76-1.46) 04/24/21 07:56 Urine Color Leticia (Yellow) 04/21/21 Unknown Urine Turbidity Clear (Clear) 04/21/21 Unknown Urine pH 5.0 (5.0-7.0) 04/21/21 Unknown Ur Specific [place] 1.027 (1.003-1.030) 04/21/21 Unknown Urine Protein 100 mg/dl mg/dL (Negative) 04/21/21 Unknown Urine Glucose (UA) Neg mg/dL (Negative) 04/21/21 Unknown Urine Ketones 20 mg/dL (Negative) 04/21/21 Unknown Urine Blood Mod (Negative) 04/21/21 Unknown Urine Nitrite Neg (Negative) 04/21/21 Unknown Urine Bilirubin Neg (Negative) 04/21/21 Unknown Urine Urobilinogen 4.0 mg/dL (<2.0) 04/21/21 Unknown Ur Leukocyte Esterase Neg (Negative) 04/21/21 Unknown Urine WBC (Auto) < 1.0 /HPF (0.0-6.0) 04/21/21 Unknown Urine RBC (Auto) < 1.0 /HPF (0.0-6.0) 04/21/21 Unknown Urine Mucus Few /HPF 04/21/21 Unknown Valproic Acid 10.9 ug/mL (50-100) L 05/04/21 13:28 Coronavirus (PCR) Positive (Negative) A 04/22/21 Unknown [place]/IV: Voiding Method Diaper Active Medications - Current Medications Current Medications: Generic Name Dose Route Start Last Admin Trade Name Freq PRN Reason Stop Dose Admin Acetaminophen 650 mg 04/21/21 22:31 04/23/21 12:43 Acetaminophen 325 Mg Tab PO 650 mg Q4H PRN Administration Pain MILD(1-3)/Fever >100.5/RAY Albuterol 2 puff 05/08/21 08:00 Albuterol 8.5 Gm Mdi Inhalation IH 05/13/21 07:59 TIDRT EDDIE Lipase/Protease/Amylase 1 each 05/07/21 13:04 Lipase 10,500/Protease 25,000/Amylase 43,750 (Units) Dr Espinoza FEEDTUBE PRN PRN For Clogged Feeding Tube Famotidine 20 mg 04/22/21 10:00 05/07/21 21:55 Famotidine 20 Mg Tab PO 20 mg BID EDDIE Administration Glycopyrrolate 2 mg 05/01/21 14:00 05/07/21 21:54 Glycopyrrolate 2 Mg Tab PO 2 mg BID EDDIE Administration Guaifenesin 200 mg 04/24/21 08:28 05/04/21 04:48 Guaifenesin 100 Mg/5 Ml Oral Liqd PO 200 mg Q4H PRN Administration Cough Metoclopramide HCl 10 mg 04/21/21 22:31 Metoclopramide 10 Mg/2 Ml Inj IV Q6H PRN Nausea And Vomiting Metoprolol Tartrate 12.5 mg 05/04/21 22:00 05/07/21 21:54 Metoprolol Tartrate 25 Mg Tab PO 12.5 mg BID EDDIE Administration Metoprolol Tartrate 2.5 mg 05/06/21 16:12 05/07/21 11:10 Metoprolol Tartrate 5 Mg/5 Ml Inj IV 2.5 mg Q6HR PRN Administration Tachyarrhythmias Ondansetron HCl 4 mg 04/21/21 22:31 Ondansetron 4 Mg/2 Ml Inj IV Q8H PRN Nausea And Vomiting Oxycodone/Acetaminophen 1 tab 04/21/21 22:31 04/22/21 22:35 Oxycodone /Acetaminophen 5-325mg Tab PO 1 tab Q6H PRN Administration Pain, Moderate (4-6) Simple Syrup 15 ml 05/07/21 13:04 Simple Syrup 15 Ml FEEDTUBE PRN PRN Hypoglycemia Simple Syrup 30 ml 05/07/21 13:04 Simple Syrup 15 Ml FEEDTUBE PRN PRN Hypoglycemia Sodium Bicarbonate 325 mg 05/07/21 13:04 Sodium Bicarbonate 325 Mg Tab FEEDTUBE PRN PRN For Clogged Feeding Tube Sodium Chloride 10 ml 04/22/21 10:00 05/07/21 21:54 Sodium Chloride 0.9% 10 Ml Flush Syringe IV 10 ml BID EDDIE Administration Sodium Chloride 10 ml 04/21/21 22:31 Sodium Chloride 0.9% 10 Ml Flush Syringe IV PRN PRN LINE FLUSH Valproic Acid 250 mg 05/01/21 22:00 05/07/21 21:54 Valproic Acid 250 Mg/5 Ml Oral Liqd PO 250 mg QHS EDDIE Administration Nutrition/Malnutrition Assess - Dietary Evaluation Nutrition/Malnutrition Findings: Nutrition Notes Start: 04/22/21 18:07 Freq: Status: Active Protocol: Document 05/07/21 12:59 RICKY (Rec: 05/07/21 13:18 RICKY [id number]) Nutrition Notes Initial or Follow up Brief Note Current Diet TF-Jevity 1.2 Louie @ 56 ml/hr ( since D 05/07). Height 6 ft Weight 67.5 kg Bronson Body Weight (kg) 80.90 BMI 20.2 Weight change and time frame No body weight change reported . Weight Status Appropriate Subjective/Other Information RD consult for routine F/U on dietary advancement or PEG tube placement. PEG tube placed on 05/07. TF ordered. Percent of energy/protein needs met: Prescribed Jevity 1.2 Louie @ 56 ml/hr provides for energy/ protein needs (1,600 Kcal/74 g ) during LOS, 100% Kcal; 90% AA. #1 Nutrition Diagnosis Inadequate oral intake Comments: Change Nutrition Diagnosis. PEG tube placed today; TF resumed. Diagnosis Progress(for reassessment Improved documentation) Nutrition Intervention Nutrition Support: Resume (post PEG) Jevity 1.2 Louie @ 56 ml/hr. Flush: 90 ml water Q 4 hr. % RDI: 100% Kcal; 90% AA. Goal #1 Provide at least 75% of energy /protein needs through Enteral Feeding during LOS. Follow-Up By: 05/11/21 Additional Comments Continue monitoring TF tolerance and BM.
[2021-05-08] MEDS: FAMOTIDINE 20 MG TAB PO SCH ×2 (10:14→22:35)
[2021-05-08] MEDS: METOPROLOL TARTRATE 25 MG TAB PO SCH ×2 (10:14→22:34)
[2021-05-08] MEDS: GLYCOPYRROLATE 2 MG TAB PO SCH ×2 (10:15→22:35)
--- NOTE | 2021-05-08 13:44 | Progress Note ---
Assessment and Plan 66 y/o male with altered mental status found to be COVID positive, now with worsening respiratory failure. 05/08/21: Continue CPT. Will try mucomyst nebs to see if this helps with sputum expectoration given weak cough. Guarded prognosis. Prone if able. 05/07/21: Continue CPT. Will speak with pharmacy but may need hypertonic saline neb to help induce cough to help expectorate mucous. Ideally should be bronched, but would need to either be intubated or have LMA and doubt GI will allow given COVID positive state. Guarded to poor prognosis. 05/06/21: Please continue CPT multiple times daily. Please document this. Suggest proning patient to help with oxygenation if possible. Guarded prognosis. 05/05/21: Increased CPT to 3-6x daily. Should be done with scheduled albuterol therapy. Please wake patient up for scheduled meds as we are trying to remove mucous and improve oxygenation. Will discuss with RT to pass on to night shit. Prone as much as possible. Daily net negative fluid balance 1. Mucous plug on CTA. Needs CPT but more than daily. Please increase to at least TID 2. Prone as much as possible and sleep prone at night 3. Has already finished steroids 4. Guarded prognosis. Subjective Date of service: 05/08/21 Principal diagnosis: Encephalopathy,COVID-19 Interval history: On 35 and 85%. Sats in the mid 90's. Objective Vital Signs - 12hr 05/08/21 05/08/21 05/08/21 05:56 08:00 08:19 Temperature 99.4 F Pulse Rate 144 H Pulse Rate [ 145 H Radial] Respiratory 20 Rate Blood Pressure 118/72 O2 Sat by Pulse 98 97 96 Oximetry Constitutional: other (on nrb mask sat 100%, opens eyes to tactile stimuli, doesnt follow command ) ENT: oropharynx moist, oropharynx dry Ascultation: Bilateral: rhonchi (sl better) Cardiovascular: regular rate and rhythm, PVC's noted Gastrointestinal: normoactive bowel sounds Integumentary: normal CBC and BMP: 05/06/21 07:02 05/03/21 09:20 ABG, PT/INR, D-dimer: PT/INR, D-dimer PT 16.0 Sec. (12.2-14.9) H 05/07/21 07:28 INR 1.16 (0.87-1.13) H 05/07/21 07:28 D-Dimer 690.97 ng/mlDDU (0-234) H 04/30/21 06:20 Abnormal lab findings: Abnormal Labs 04/21/21 04/21/21 04/22/21 16:08 16:08 00:20 WBC RBC Hgb Hct MCV 96 H MCH MCHC RDW Lymph % (Auto) 8.5 L [place] % (Auto) 15.8 H Lymph # (Auto) 0.9 L [place] # (Auto) 1.7 H Seg Neutrophils % 75.6 H Seg Neuts % (Manual) Lymphocytes % (Manual) Monocytes % (Manual) Seg Neutrophils # 8.0 H Seg Neutrophils # Man Lymphocytes # (Manual) Monocytes # (Manual) PT INR APTT D-Dimer 621.94 H Sodium Potassium Chloride Carbon Dioxide Creatinine 0.6 L Glucose 107 H POC Glucose Calcium 8.3 L Phosphorus Ferritin AST 136 H Lactate Dehydrogenase C-Reactive Protein Total Protein 6.2 L Albumin 3.0 L Lipase 7 L Vitamin B12 Valproic Acid Coronavirus (PCR) 04/22/21 04/22/21 04/22/21 00:20 00:20 06:51 WBC RBC Hgb Hct MCV 95 H MCH MCHC RDW Lymph % (Auto) [place] % (Auto) Lymph # (Auto) [place] # (Auto) Seg Neutrophils % Seg Neuts % (Manual) 91.0 H Lymphocytes % (Manual) 1.0 L Monocytes % (Manual) Seg Neutrophils # Seg Neutrophils # Man Lymphocytes # (Manual) 0.1 L Monocytes # (Manual) PT INR APTT D-Dimer Sodium Potassium Chloride Carbon Dioxide Creatinine Glucose POC Glucose Calcium Phosphorus Ferritin 427.3 H AST Lactate Dehydrogenase 379 H C-Reactive Protein 9.20 H Total Protein Albumin Lipase Vitamin B12 Valproic Acid Coronavirus (PCR) 04/22/21 04/22/21 04/23/21 06:51 Unknown 09:24 WBC RBC Hgb Hct MCV 96 H MCH MCHC RDW Lymph % (Auto) 5.9 L [place] % (Auto) 9.3 H Lymph # (Auto) 0.5 L [place] # (Auto) Seg Neutrophils % 84.8 H Seg Neuts % (Manual) Lymphocytes % (Manual) Monocytes % (Manual) Seg Neutrophils # Seg Neutrophils # Man Lymphocytes # (Manual) Monocytes # (Manual) PT INR APTT D-Dimer Sodium Potassium Chloride Carbon Dioxide Creatinine 0.4 L Glucose 114 H POC Glucose Calcium 8.0 L Phosphorus Ferritin AST 116 H Lactate Dehydrogenase C-Reactive Protein Total Protein 5.9 L Albumin 3.0 L Lipase Vitamin B12 Valproic Acid Coronavirus (PCR) Positive A 04/23/21 04/23/21 04/24/21 09:24 22:38 07:56 WBC RBC Hgb Hct MCV MCH MCHC RDW Lymph % (Auto) [place] % (Auto) Lymph # (Auto) [place] # (Auto) Seg Neutrophils % Seg Neuts % (Manual) Lymphocytes % (Manual) Monocytes % (Manual) Seg Neutrophils # Seg Neutrophils # Man Lymphocytes # (Manual) Monocytes # (Manual) PT INR APTT D-Dimer Sodium Potassium 3.5 L Chloride Carbon Dioxide Creatinine 0.5 L Glucose 102 H POC Glucose 111 H Calcium 8.3 L Phosphorus 2.30 L Ferritin AST Lactate Dehydrogenase C-Reactive Protein Total Protein Albumin Lipase Vitamin B12 1039 H Valproic Acid Coronavirus (PCR) 04/24/21 04/24/21 04/24/21 07:56 07:56 21:37 WBC RBC Hgb Hct MCV 95 H MCH MCHC RDW Lymph % (Auto) [place] % (Auto) Lymph # (Auto) [place] # (Auto) Seg Neutrophils % Seg Neuts % (Manual) 80.0 H Lymphocytes % (Manual) 10.0 L Monocytes % (Manual) 10.0 H Seg Neutrophils # Seg Neutrophils # Man Lymphocytes # (Manual) 0.7 L Monocytes # (Manual) PT INR APTT D-Dimer Sodium Potassium Chloride Carbon Dioxide Creatinine 0.4 L Glucose POC Glucose 111 H Calcium Phosphorus Ferritin AST Lactate Dehydrogenase C-Reactive Protein Total Protein Albumin Lipase Vitamin B12 Valproic Acid Coronavirus (PCR) 04/25/21 04/25/21 04/25/21 06:24 06:24 23:13 WBC RBC Hgb Hct 46.6 H MCV MCH MCHC RDW Lymph % (Auto) [place] % (Auto) Lymph # (Auto) [place] # (Auto) Seg Neutrophils % Seg Neuts % (Manual) 83.0 H Lymphocytes % (Manual) 1.0 L Monocytes % (Manual) 9.0 H Seg Neutrophils # Seg Neutrophils # Man Lymphocytes # (Manual) 0.1 L Monocytes # (Manual) PT INR APTT D-Dimer Sodium 136 L 134 L Potassium 3.3 L Chloride Carbon Dioxide 21 L Creatinine 0.3 L 0.4 L Glucose 115 H POC Glucose Calcium 7.7 L Phosphorus Ferritin AST 104 H Lactate Dehydrogenase C-Reactive Protein Total Protein 6.1 L Albumin 2.6 L Lipase Vitamin B12 Valproic Acid Coronavirus (PCR) 04/26/21 04/27/21 04/27/21 06:29 06:31 06:31 WBC 17.6 H RBC Hgb Hct MCV MCH MCHC RDW Lymph % (Auto) [place] % (Auto) Lymph # (Auto) [place] # (Auto) Seg Neutrophils % Seg Neuts % (Manual) 87.0 H Lymphocytes % (Manual) 5.0 L Monocytes % (Manual) Seg Neutrophils # Seg Neutrophils # Man 15.3 H Lymphocytes # (Manual) 0.9 L Monocytes # (Manual) 0.9 H PT INR APTT D-Dimer Sodium Potassium 3.4 L Chloride Carbon Dioxide Creatinine 0.5 L 0.4 L Glucose 112 H 106 H POC Glucose Calcium 8.0 L Phosphorus Ferritin AST 114 H 110 H Lactate Dehydrogenase C-Reactive Protein Total Protein 6.2 L Albumin 2.9 L 2.6 L Lipase Vitamin B12 Valproic Acid Coronavirus (PCR) 04/28/21 04/28/21 04/29/21 08:03 08:03 04:00 WBC 19.8 H 14.0 H RBC Hgb Hct MCV 95 H MCH MCHC RDW Lymph % (Auto) [place] % (Auto) Lymph # (Auto) [place] # (Auto) Seg Neutrophils % Seg Neuts % (Manual) 94.0 H Lymphocytes % (Manual) 1.0 L Monocytes % (Manual) Seg Neutrophils # Seg Neutrophils # Man 18.6 H Lymphocytes # (Manual) 0.2 L Monocytes # (Manual) PT INR APTT D-Dimer Sodium Potassium Chloride Carbon Dioxide Creatinine 0.2 L Glucose 107 H POC Glucose Calcium 8.1 L Phosphorus Ferritin AST 87 H Lactate Dehydrogenase C-Reactive Protein Total Protein 5.1 L Albumin 2.4 L Lipase Vitamin B12 Valproic Acid Coronavirus (PCR) 04/29/21 04/30/21 04/30/21 04:00 06:20 06:20 WBC RBC Hgb Hct MCV MCH MCHC RDW Lymph % (Auto) [place] % (Auto) Lymph # (Auto) [place] # (Auto) Seg Neutrophils % Seg Neuts % (Manual) Lymphocytes % (Manual) Monocytes % (Manual) Seg Neutrophils # Seg Neutrophils # Man Lymphocytes # (Manual) Monocytes # (Manual) PT INR APTT D-Dimer 690.97 H Sodium 148 H Potassium 3.0 L Chloride 110.2 H Carbon Dioxide Creatinine 0.2 L Glucose 130 H POC Glucose Calcium Phosphorus Ferritin 930.1 H AST 63 H Lactate Dehydrogenase C-Reactive Protein Total Protein 5.6 L Albumin 2.4 L Lipase Vitamin B12 Valproic Acid Coronavirus (PCR) 04/30/21 04/30/21 04/30/21 06:20 08:01 08:41 WBC RBC Hgb Hct MCV MCH MCHC RDW Lymph % (Auto) [place] % (Auto) Lymph # (Auto) [place] # (Auto) Seg Neutrophils % Seg Neuts % (Manual) Lymphocytes % (Manual) Monocytes % (Manual) Seg Neutrophils # Seg Neutrophils # Man Lymphocytes # (Manual) Monocytes # (Manual) PT INR APTT D-Dimer Sodium 151 H Potassium 3.3 L Chloride 110.3 H Carbon Dioxide Creatinine 0.3 L Glucose 119 H POC Glucose 119 H Calcium Phosphorus Ferritin AST Lactate Dehydrogenase 423 H C-Reactive Protein 8.90 H Total Protein Albumin Lipase Vitamin B12 Valproic Acid Coronavirus (PCR) 04/30/21 05/01/21 05/01/21 11:14 07:29 07:29 WBC 21.4 H RBC Hgb Hct MCV MCH MCHC RDW Lymph % (Auto) [place] % (Auto) Lymph # (Auto) [place] # (Auto) Seg Neutrophils % Seg Neuts % (Manual) Lymphocytes % (Manual) Monocytes % (Manual) Seg Neutrophils # Seg Neutrophils # Man Lymphocytes # (Manual) Monocytes # (Manual) PT INR APTT D-Dimer Sodium 150 H Potassium 2.7 L* Chloride 111.2 H Carbon Dioxide Creatinine 0.3 L Glucose 162 H POC Glucose 113 H Calcium Phosphorus Ferritin AST Lactate Dehydrogenase C-Reactive Protein Total Protein Albumin Lipase Vitamin B12 Valproic Acid Coronavirus (PCR) 05/01/21 05/01/21 05/01/21 07:33 11:28 17:54 WBC RBC Hgb Hct MCV MCH MCHC RDW Lymph % (Auto) [place] % (Auto) Lymph # (Auto) [place] # (Auto) Seg Neutrophils % Seg Neuts % (Manual) Lymphocytes % (Manual) Monocytes % (Manual) Seg Neutrophils # Seg Neutrophils # Man Lymphocytes # (Manual) Monocytes # (Manual) PT INR APTT D-Dimer Sodium Potassium Chloride Carbon Dioxide Creatinine Glucose POC Glucose 147 H 152 H 165 H Calcium Phosphorus Ferritin AST Lactate Dehydrogenase C-Reactive Protein Total Protein Albumin Lipase Vitamin B12 Valproic Acid Coronavirus (PCR) 05/02/21 05/02/21 05/02/21 00:23 05:28 05:28 WBC 18.9 H RBC Hgb Hct MCV 95 H MCH MCHC 31 L RDW Lymph % (Auto) [place] % (Auto) Lymph # (Auto) [place] # (Auto) Seg Neutrophils % Seg Neuts % (Manual) Lymphocytes % (Manual) Monocytes % (Manual) Seg Neutrophils # Seg Neutrophils # Man Lymphocytes # (Manual) Monocytes # (Manual) PT INR APTT D-Dimer Sodium 151 H Potassium Chloride 111.4 H Carbon Dioxide Creatinine 0.3 L Glucose 132 H POC Glucose 160 H Calcium 8.3 L Phosphorus Ferritin AST Lactate Dehydrogenase C-Reactive Protein Total Protein Albumin Lipase Vitamin B12 Valproic Acid Coronavirus (PCR) 05/02/21 05/02/21 05/02/21 07:42 11:31 16:39 WBC RBC Hgb Hct MCV MCH MCHC RDW Lymph % (Auto) [place] % (Auto) Lymph # (Auto) [place] # (Auto) Seg Neutrophils % Seg Neuts % (Manual) Lymphocytes % (Manual) Monocytes % (Manual) Seg Neutrophils # Seg Neutrophils # Man Lymphocytes # (Manual) Monocytes # (Manual) PT INR APTT D-Dimer Sodium Potassium Chloride Carbon Dioxide Creatinine Glucose POC Glucose 170 H 131 H 140 H Calcium Phosphorus Ferritin AST Lactate Dehydrogenase C-Reactive Protein Total Protein Albumin Lipase Vitamin B12 Valproic Acid Coronavirus (PCR) 05/02/21 05/03/21 05/03/21 22:42 06:11 09:20 WBC 16.2 H RBC 3.51 L Hgb 10.5 L Hct 33.1 L MCV MCH MCHC RDW 15.4 H Lymph % (Auto) [place] % (Auto) Lymph # (Auto) [place] # (Auto) Seg Neutrophils % Seg Neuts % (Manual) Lymphocytes % (Manual) Monocytes % (Manual) Seg Neutrophils # Seg Neutrophils # Man Lymphocytes # (Manual) Monocytes # (Manual) PT INR APTT D-Dimer Sodium Potassium Chloride Carbon Dioxide Creatinine Glucose POC Glucose 107 H 108 H Calcium Phosphorus Ferritin AST Lactate Dehydrogenase C-Reactive Protein Total Protein Albumin Lipase Vitamin B12 Valproic Acid Coronavirus (PCR) 05/03/21 05/03/21 05/03/21 09:20 11:01 17:33 WBC RBC Hgb Hct MCV MCH MCHC RDW Lymph % (Auto) [place] % (Auto) Lymph # (Auto) [place] # (Auto) Seg Neutrophils % Seg Neuts % (Manual) Lymphocytes % (Manual) Monocytes % (Manual) Seg Neutrophils # Seg Neutrophils # Man Lymphocytes # (Manual) Monocytes # (Manual) PT INR APTT D-Dimer Sodium 149 H Potassium 3.5 L Chloride 110.0 H Carbon Dioxide Creatinine 0.3 L Glucose 113 H POC Glucose 146 H 118 H Calcium 8.0 L Phosphorus Ferritin AST Lactate Dehydrogenase C-Reactive Protein Total Protein Albumin Lipase Vitamin B12 Valproic Acid Coronavirus (PCR) 05/04/21 05/04/21 05/04/21 05:51 13:28 13:28 WBC RBC Hgb Hct MCV MCH MCHC RDW Lymph % (Auto) [place] % (Auto) Lymph # (Auto) [place] # (Auto) Seg Neutrophils % Seg Neuts % (Manual) Lymphocytes % (Manual) Monocytes % (Manual) Seg Neutrophils # Seg Neutrophils # Man Lymphocytes # (Manual) Monocytes # (Manual) PT INR APTT D-Dimer Sodium Potassium Chloride Carbon Dioxide Creatinine Glucose POC Glucose 143 H Calcium Phosphorus Ferritin AST Lactate Dehydrogenase C-Reactive Protein 15.40 H Total Protein Albumin Lipase Vitamin B12 Valproic Acid 10.9 L Coronavirus (PCR) 05/04/21 05/04/21 05/05/21 17:30 23:53 11:23 WBC RBC Hgb Hct MCV MCH MCHC RDW Lymph % (Auto) [place] % (Auto) Lymph # (Auto) [place] # (Auto) Seg Neutrophils % Seg Neuts % (Manual) Lymphocytes % (Manual) Monocytes % (Manual) Seg Neutrophils # Seg Neutrophils # Man Lymphocytes # (Manual) Monocytes # (Manual) PT INR APTT D-Dimer Sodium Potassium Chloride Carbon Dioxide Creatinine Glucose POC Glucose 110 H 128 H 121 H Calcium Phosphorus Ferritin AST Lactate Dehydrogenase C-Reactive Protein Total Protein Albumin Lipase Vitamin B12 Valproic Acid Coronavirus (PCR) 05/05/21 05/05/21 05/06/21 16:26 21:24 07:02 WBC 11.7 H RBC Hgb Hct MCV 99 H MCH 33 H MCHC RDW 15.5 H Lymph % (Auto) [place] % (Auto) Lymph # (Auto) [place] # (Auto) Seg Neutrophils % Seg Neuts % (Manual) 82.0 H Lymphocytes % (Manual) 4.0 L Monocytes % (Manual) Seg Neutrophils # Seg Neutrophils # Man 9.6 H Lymphocytes # (Manual) 0.5 L Monocytes # (Manual) PT INR APTT D-Dimer Sodium Potassium Chloride Carbon Dioxide Creatinine Glucose POC Glucose 113 H 130 H Calcium Phosphorus Ferritin AST Lactate Dehydrogenase C-Reactive Protein Total Protein Albumin Lipase Vitamin B12 Valproic Acid Coronavirus (PCR) 05/07/21 05/07/21 05/07/21 05:00 07:28 21:34 WBC RBC Hgb Hct MCV MCH MCHC RDW Lymph % (Auto) [place] % (Auto) Lymph # (Auto) [place] # (Auto) Seg Neutrophils % Seg Neuts % (Manual) Lymphocytes % (Manual) Monocytes % (Manual) Seg Neutrophils # Seg Neutrophils # Man Lymphocytes # (Manual) Monocytes # (Manual) PT 16.0 H INR 1.16 H APTT 43.8 H D-Dimer Sodium Potassium Chloride Carbon Dioxide Creatinine Glucose POC Glucose 112 H 123 H Calcium Phosphorus Ferritin AST Lactate Dehydrogenase C-Reactive Protein Total Protein Albumin Lipase Vitamin B12 Valproic Acid Coronavirus (PCR) 05/08/21 05/08/21 08:11 12:04 WBC RBC Hgb Hct MCV MCH MCHC RDW Lymph % (Auto) [place] % (Auto) Lymph # (Auto) [place] # (Auto) Seg Neutrophils % Seg Neuts % (Manual) Lymphocytes % (Manual) Monocytes % (Manual) Seg Neutrophils # Seg Neutrophils # Man Lymphocytes # (Manual) Monocytes # (Manual) PT INR APTT D-Dimer Sodium Potassium Chloride Carbon Dioxide Creatinine Glucose POC Glucose 158 H 117 H Calcium Phosphorus Ferritin AST Lactate Dehydrogenase C-Reactive Protein Total Protein Albumin Lipase Vitamin B12 Valproic Acid Coronavirus (PCR)
--- NOTE | 2021-05-08 14:53 | Gastroenterology Progress Note ---
Assessment and Plan 1. GI: s/p peg w/o obvious complications - ok to use peg as needed - watch for signs bleeding or other issues - ok to dc from GI standpoint - will sign off, call if needed Subjective Date of service: 05/08/21 Principal diagnosis: Encephalopathy,COVID-19 Interval history: - s/p peg without obvious complication overnight per staff. Using without issues Objective - Constitutional Vitals: Temp Pulse Resp BP Pulse Ox 99.4 F 145 H 20 118/72 96 05/08/21 05:56 05/08/21 08:19 05/08/21 05:56 05/08/21 05:56 05/08/21 08:19 General appearance: no acute distress - EENT Eyes: PERRL - Respiratory Respiratory: bilateral: rhonchi - Cardiovascular Rhythm: regular Heart Sounds: Present: S1 & S2 - Gastrointestinal General gastrointestinal: Present: soft, non-tender, non-distended (peg site intact) - Labs CBC & Chem 7: 05/06/21 07:02 05/03/21 09:20 Labs: Laboratory Results - last 24 hr 05/07/21 05/08/21 05/08/21 21:34 08:11 12:04 POC Glucose 123 H 158 H 117 H
--- NOTE | 2021-05-08 15:21 | Event Note ---
Date: 05/08/21 Discharge planning; considering hospice, I called the herrera of the [facility] Ms. Twila Brannon at [phone] and discussed in detail the patient's condition and that the caregivers are considering hospice services that would benefit the patient in his current medical condition and would like to know her thoughts about this plan. She informed me that , she would send 2 pages form to be filled by 2 physicians explaining the reasons for the need of the hospice services. I passed on this information to the counseling case manager Ms. Bartlett. We will continue to follow
[2021-05-08] MEDS: ACETYLCYSTEINE 20% 200 MG/1 ML *FOR INHALATION USE INHALATION SCH (22:08)
[2021-05-08] MEDS: VALPROIC ACID 250 MG/5 ML ORAL LIQD PO SCH (22:35)
[2021-05-08] MEDS: ACETAMINOPHEN 325 MG TAB PO PRN (23:18)
[2021-05-09] MEDS: FREE WATER PO SCH ×2 (06:15)
--- NOTE | 2021-05-09 08:08 | Progress Note ---
Assessment and Plan 66 y/o male with altered mental status found to be COVID positive, now with worsening respiratory failure. 05/09/21: Given current clinical state, no improvement in pulmonary status, increased weakness with continued risk for aspiration in the face of COVID 19 pneumonia, I agree that hospice would be a reasonable option for this patient. Not sure what company could take current oxygen demand so if this is pursued it would likely need to be inpatient with plans of comfort and deescalation. Continue CPT and mucomyst nebs. Guarded to poor prognosis. 05/08/21: Continue CPT. Will try mucomyst nebs to see if this helps with sputum expectoration given weak cough. Guarded prognosis. Prone if able. 05/07/21: Continue CPT. Will speak with pharmacy but may need hypertonic saline neb to help induce cough to help expectorate mucous. Ideally should be bronched, but would need to either be intubated or have LMA and doubt GI will allow given COVID positive state. Guarded to poor prognosis. 05/06/21: Please continue CPT multiple times daily. Please document this. Suggest proning patient to help with oxygenation if possible. Guarded prognosis. 05/05/21: Increased CPT to 3-6x daily. Should be done with scheduled albuterol therapy. Please wake patient up for scheduled meds as we are trying to remove mucous and improve oxygenation. Will discuss with RT to pass on to night shit. Prone as much as possible. Daily net negative fluid balance 1. Mucous plug on CTA. Needs CPT but more than daily. Please increase to at least TID 2. Prone as much as possible and sleep prone at night 3. Has already finished steroids 4. Guarded prognosis. Subjective Date of service: 05/09/21 Principal diagnosis: Encephalopathy,COVID-19 Interval history: Clinically no change. Reviewed IMS event note from yesterday. Objective Vital Signs - 12hr 05/08/21 05/08/21 05/08/21 20:08 21:14 22:11 Temperature 100.0 F H Pulse Rate 141 H Pulse Rate [ 130 H Radial] Respiratory 22 Rate Blood Pressure 112/69 O2 Sat by Pulse 98 100 97 Oximetry 05/09/21 05/09/21 02:38 04:54 Temperature 98.1 F Pulse Rate 134 H Pulse Rate [ Radial] Respiratory 18 Rate Blood Pressure 108/70 O2 Sat by Pulse 98 97 Oximetry Constitutional: other (on nrb mask sat 100%, opens eyes to tactile stimuli, doesnt follow command ) ENT: oropharynx moist, oropharynx dry Ascultation: Bilateral: rhonchi (sl better) Cardiovascular: regular rate and rhythm, PVC's noted Gastrointestinal: normoactive bowel sounds Integumentary: normal CBC and BMP: 05/06/21 07:02 05/03/21 09:20 ABG, PT/INR, D-dimer: PT/INR, D-dimer PT 16.0 Sec. (12.2-14.9) H 05/07/21 07:28 INR 1.16 (0.87-1.13) H 05/07/21 07:28 D-Dimer 690.97 ng/mlDDU (0-234) H 04/30/21 06:20 Abnormal lab findings: Abnormal Labs 04/21/21 04/21/21 04/22/21 16:08 16:08 00:20 WBC RBC Hgb Hct MCV 96 H MCH MCHC RDW Lymph % (Auto) 8.5 L [place] % (Auto) 15.8 H Lymph # (Auto) 0.9 L [place] # (Auto) 1.7 H Seg Neutrophils % 75.6 H Seg Neuts % (Manual) Lymphocytes % (Manual) Monocytes % (Manual) Seg Neutrophils # 8.0 H Seg Neutrophils # Man Lymphocytes # (Manual) Monocytes # (Manual) PT INR APTT D-Dimer 621.94 H Sodium Potassium Chloride Carbon Dioxide Creatinine 0.6 L Glucose 107 H POC Glucose Calcium 8.3 L Phosphorus Ferritin AST 136 H Lactate Dehydrogenase C-Reactive Protein Total Protein 6.2 L Albumin 3.0 L Lipase 7 L Vitamin B12 Valproic Acid Coronavirus (PCR) 04/22/21 04/22/21 04/22/21 00:20 00:20 06:51 WBC RBC Hgb Hct MCV 95 H MCH MCHC RDW Lymph % (Auto) [place] % (Auto) Lymph # (Auto) [place] # (Auto) Seg Neutrophils % Seg Neuts % (Manual) 91.0 H Lymphocytes % (Manual) 1.0 L Monocytes % (Manual) Seg Neutrophils # Seg Neutrophils # Man Lymphocytes # (Manual) 0.1 L Monocytes # (Manual) PT INR APTT D-Dimer Sodium Potassium Chloride Carbon Dioxide Creatinine Glucose POC Glucose Calcium Phosphorus Ferritin 427.3 H AST Lactate Dehydrogenase 379 H C-Reactive Protein 9.20 H Total Protein Albumin Lipase Vitamin B12 Valproic Acid Coronavirus (PCR) 04/22/21 04/22/21 04/23/21 06:51 Unknown 09:24 WBC RBC Hgb Hct MCV 96 H MCH MCHC RDW Lymph % (Auto) 5.9 L [place] % (Auto) 9.3 H Lymph # (Auto) 0.5 L [place] # (Auto) Seg Neutrophils % 84.8 H Seg Neuts % (Manual) Lymphocytes % (Manual) Monocytes % (Manual) Seg Neutrophils # Seg Neutrophils # Man Lymphocytes # (Manual) Monocytes # (Manual) PT INR APTT D-Dimer Sodium Potassium Chloride Carbon Dioxide Creatinine 0.4 L Glucose 114 H POC Glucose Calcium 8.0 L Phosphorus Ferritin AST 116 H Lactate Dehydrogenase C-Reactive Protein Total Protein 5.9 L Albumin 3.0 L Lipase Vitamin B12 Valproic Acid Coronavirus (PCR) Positive A 04/23/21 04/23/21 04/24/21 09:24 22:38 07:56 WBC RBC Hgb Hct MCV MCH MCHC RDW Lymph % (Auto) [place] % (Auto) Lymph # (Auto) [place] # (Auto) Seg Neutrophils % Seg Neuts % (Manual) Lymphocytes % (Manual) Monocytes % (Manual) Seg Neutrophils # Seg Neutrophils # Man Lymphocytes # (Manual) Monocytes # (Manual) PT INR APTT D-Dimer Sodium Potassium 3.5 L Chloride Carbon Dioxide Creatinine 0.5 L Glucose 102 H POC Glucose 111 H Calcium 8.3 L Phosphorus 2.30 L Ferritin AST Lactate Dehydrogenase C-Reactive Protein Total Protein Albumin Lipase Vitamin B12 1039 H Valproic Acid Coronavirus (PCR) 04/24/21 04/24/21 04/24/21 07:56 07:56 21:37 WBC RBC Hgb Hct MCV 95 H MCH MCHC RDW Lymph % (Auto) [place] % (Auto) Lymph # (Auto) [place] # (Auto) Seg Neutrophils % Seg Neuts % (Manual) 80.0 H Lymphocytes % (Manual) 10.0 L Monocytes % (Manual) 10.0 H Seg Neutrophils # Seg Neutrophils # Man Lymphocytes # (Manual) 0.7 L Monocytes # (Manual) PT INR APTT D-Dimer Sodium Potassium Chloride Carbon Dioxide Creatinine 0.4 L Glucose POC Glucose 111 H Calcium Phosphorus Ferritin AST Lactate Dehydrogenase C-Reactive Protein Total Protein Albumin Lipase Vitamin B12 Valproic Acid Coronavirus (PCR) 04/25/21 04/25/21 04/25/21 06:24 06:24 23:13 WBC RBC Hgb Hct 46.6 H MCV MCH MCHC RDW Lymph % (Auto) [place] % (Auto) Lymph # (Auto) [place] # (Auto) Seg Neutrophils % Seg Neuts % (Manual) 83.0 H Lymphocytes % (Manual) 1.0 L Monocytes % (Manual) 9.0 H Seg Neutrophils # Seg Neutrophils # Man Lymphocytes # (Manual) 0.1 L Monocytes # (Manual) PT INR APTT D-Dimer Sodium 136 L 134 L Potassium 3.3 L Chloride Carbon Dioxide 21 L Creatinine 0.3 L 0.4 L Glucose 115 H POC Glucose Calcium 7.7 L Phosphorus Ferritin AST 104 H Lactate Dehydrogenase C-Reactive Protein Total Protein 6.1 L Albumin 2.6 L Lipase Vitamin B12 Valproic Acid Coronavirus (PCR) 04/26/21 04/27/21 04/27/21 06:29 06:31 06:31 WBC 17.6 H RBC Hgb Hct MCV MCH MCHC RDW Lymph % (Auto) [place] % (Auto) Lymph # (Auto) [place] # (Auto) Seg Neutrophils % Seg Neuts % (Manual) 87.0 H Lymphocytes % (Manual) 5.0 L Monocytes % (Manual) Seg Neutrophils # Seg Neutrophils # Man 15.3 H Lymphocytes # (Manual) 0.9 L Monocytes # (Manual) 0.9 H PT INR APTT D-Dimer Sodium Potassium 3.4 L Chloride Carbon Dioxide Creatinine 0.5 L 0.4 L Glucose 112 H 106 H POC Glucose Calcium 8.0 L Phosphorus Ferritin AST 114 H 110 H Lactate Dehydrogenase C-Reactive Protein Total Protein 6.2 L Albumin 2.9 L 2.6 L Lipase Vitamin B12 Valproic Acid Coronavirus (PCR) 04/28/21 04/28/21 04/29/21 08:03 08:03 04:00 WBC 19.8 H 14.0 H RBC Hgb Hct MCV 95 H MCH MCHC RDW Lymph % (Auto) [place] % (Auto) Lymph # (Auto) [place] # (Auto) Seg Neutrophils % Seg Neuts % (Manual) 94.0 H Lymphocytes % (Manual) 1.0 L Monocytes % (Manual) Seg Neutrophils # Seg Neutrophils # Man 18.6 H Lymphocytes # (Manual) 0.2 L Monocytes # (Manual) PT INR APTT D-Dimer Sodium Potassium Chloride Carbon Dioxide Creatinine 0.2 L Glucose 107 H POC Glucose Calcium 8.1 L Phosphorus Ferritin AST 87 H Lactate Dehydrogenase C-Reactive Protein Total Protein 5.1 L Albumin 2.4 L Lipase Vitamin B12 Valproic Acid Coronavirus (PCR) 04/29/21 04/30/21 04/30/21 04:00 06:20 06:20 WBC RBC Hgb Hct MCV MCH MCHC RDW Lymph % (Auto) [place] % (Auto) Lymph # (Auto) [place] # (Auto) Seg Neutrophils % Seg Neuts % (Manual) Lymphocytes % (Manual) Monocytes % (Manual) Seg Neutrophils # Seg Neutrophils # Man Lymphocytes # (Manual) Monocytes # (Manual) PT INR APTT D-Dimer 690.97 H Sodium 148 H Potassium 3.0 L Chloride 110.2 H Carbon Dioxide Creatinine 0.2 L Glucose 130 H POC Glucose Calcium Phosphorus Ferritin 930.1 H AST 63 H Lactate Dehydrogenase C-Reactive Protein Total Protein 5.6 L Albumin 2.4 L Lipase Vitamin B12 Valproic Acid Coronavirus (PCR) 04/30/21 04/30/21 04/30/21 06:20 08:01 08:41 WBC RBC Hgb Hct MCV MCH MCHC RDW Lymph % (Auto) [place] % (Auto) Lymph # (Auto) [place] # (Auto) Seg Neutrophils % Seg Neuts % (Manual) Lymphocytes % (Manual) Monocytes % (Manual) Seg Neutrophils # Seg Neutrophils # Man Lymphocytes # (Manual) Monocytes # (Manual) PT INR APTT D-Dimer Sodium 151 H Potassium 3.3 L Chloride 110.3 H Carbon Dioxide Creatinine 0.3 L Glucose 119 H POC Glucose 119 H Calcium Phosphorus Ferritin AST Lactate Dehydrogenase 423 H C-Reactive Protein 8.90 H Total Protein Albumin Lipase Vitamin B12 Valproic Acid Coronavirus (PCR) 04/30/21 05/01/21 05/01/21 11:14 07:29 07:29 WBC 21.4 H RBC Hgb Hct MCV MCH MCHC RDW Lymph % (Auto) [place] % (Auto) Lymph # (Auto) [place] # (Auto) Seg Neutrophils % Seg Neuts % (Manual) Lymphocytes % (Manual) Monocytes % (Manual) Seg Neutrophils # Seg Neutrophils # Man Lymphocytes # (Manual) Monocytes # (Manual) PT INR APTT D-Dimer Sodium 150 H Potassium 2.7 L* Chloride 111.2 H Carbon Dioxide Creatinine 0.3 L Glucose 162 H POC Glucose 113 H Calcium Phosphorus Ferritin AST Lactate Dehydrogenase C-Reactive Protein Total Protein Albumin Lipase Vitamin B12 Valproic Acid Coronavirus (PCR) 05/01/21 05/01/21 05/01/21 07:33 11:28 17:54 WBC RBC Hgb Hct MCV MCH MCHC RDW Lymph % (Auto) [place] % (Auto) Lymph # (Auto) [place] # (Auto) Seg Neutrophils % Seg Neuts % (Manual) Lymphocytes % (Manual) Monocytes % (Manual) Seg Neutrophils # Seg Neutrophils # Man Lymphocytes # (Manual) Monocytes # (Manual) PT INR APTT D-Dimer Sodium Potassium Chloride Carbon Dioxide Creatinine Glucose POC Glucose 147 H 152 H 165 H Calcium Phosphorus Ferritin AST Lactate Dehydrogenase C-Reactive Protein Total Protein Albumin Lipase Vitamin B12 Valproic Acid Coronavirus (PCR) 05/02/21 05/02/21 05/02/21 00:23 05:28 05:28 WBC 18.9 H RBC Hgb Hct MCV 95 H MCH MCHC 31 L RDW Lymph % (Auto) [place] % (Auto) Lymph # (Auto) [place] # (Auto) Seg Neutrophils % Seg Neuts % (Manual) Lymphocytes % (Manual) Monocytes % (Manual) Seg Neutrophils # Seg Neutrophils # Man Lymphocytes # (Manual) Monocytes # (Manual) PT INR APTT D-Dimer Sodium 151 H Potassium Chloride 111.4 H Carbon Dioxide Creatinine 0.3 L Glucose 132 H POC Glucose 160 H Calcium 8.3 L Phosphorus Ferritin AST Lactate Dehydrogenase C-Reactive Protein Total Protein Albumin Lipase Vitamin B12 Valproic Acid Coronavirus (PCR) 05/02/21 05/02/21 05/02/21 07:42 11:31 16:39 WBC RBC Hgb Hct MCV MCH MCHC RDW Lymph % (Auto) [place] % (Auto) Lymph # (Auto) [place] # (Auto) Seg Neutrophils % Seg Neuts % (Manual) Lymphocytes % (Manual) Monocytes % (Manual) Seg Neutrophils # Seg Neutrophils # Man Lymphocytes # (Manual) Monocytes # (Manual) PT INR APTT D-Dimer Sodium Potassium Chloride Carbon Dioxide Creatinine Glucose POC Glucose 170 H 131 H 140 H Calcium Phosphorus Ferritin AST Lactate Dehydrogenase C-Reactive Protein Total Protein Albumin Lipase Vitamin B12 Valproic Acid Coronavirus (PCR) 05/02/21 05/03/21 05/03/21 22:42 06:11 09:20 WBC 16.2 H RBC 3.51 L Hgb 10.5 L Hct 33.1 L MCV MCH MCHC RDW 15.4 H Lymph % (Auto) [place] % (Auto) Lymph # (Auto) [place] # (Auto) Seg Neutrophils % Seg Neuts % (Manual) Lymphocytes % (Manual) Monocytes % (Manual) Seg Neutrophils # Seg Neutrophils # Man Lymphocytes # (Manual) Monocytes # (Manual) PT INR APTT D-Dimer Sodium Potassium Chloride Carbon Dioxide Creatinine Glucose POC Glucose 107 H 108 H Calcium Phosphorus Ferritin AST Lactate Dehydrogenase C-Reactive Protein Total Protein Albumin Lipase Vitamin B12 Valproic Acid Coronavirus (PCR) 05/03/21 05/03/21 05/03/21 09:20 11:01 17:33 WBC RBC Hgb Hct MCV MCH MCHC RDW Lymph % (Auto) [place] % (Auto) Lymph # (Auto) [place] # (Auto) Seg Neutrophils % Seg Neuts % (Manual) Lymphocytes % (Manual) Monocytes % (Manual) Seg Neutrophils # Seg Neutrophils # Man Lymphocytes # (Manual) Monocytes # (Manual) PT INR APTT D-Dimer Sodium 149 H Potassium 3.5 L Chloride 110.0 H Carbon Dioxide Creatinine 0.3 L Glucose 113 H POC Glucose 146 H 118 H Calcium 8.0 L Phosphorus Ferritin AST Lactate Dehydrogenase C-Reactive Protein Total Protein Albumin Lipase Vitamin B12 Valproic Acid Coronavirus (PCR) 05/04/21 05/04/21 05/04/21 05:51 13:28 13:28 WBC RBC Hgb Hct MCV MCH MCHC RDW Lymph % (Auto) [place] % (Auto) Lymph # (Auto) [place] # (Auto) Seg Neutrophils % Seg Neuts % (Manual) Lymphocytes % (Manual) Monocytes % (Manual) Seg Neutrophils # Seg Neutrophils # Man Lymphocytes # (Manual) Monocytes # (Manual) PT INR APTT D-Dimer Sodium Potassium Chloride Carbon Dioxide Creatinine Glucose POC Glucose 143 H Calcium Phosphorus Ferritin AST Lactate Dehydrogenase C-Reactive Protein 15.40 H Total Protein Albumin Lipase Vitamin B12 Valproic Acid 10.9 L Coronavirus (PCR) 05/04/21 05/04/21 05/05/21 17:30 23:53 11:23 WBC RBC Hgb Hct MCV MCH MCHC RDW Lymph % (Auto) [place] % (Auto) Lymph # (Auto) [place] # (Auto) Seg Neutrophils % Seg Neuts % (Manual) Lymphocytes % (Manual) Monocytes % (Manual) Seg Neutrophils # Seg Neutrophils # Man Lymphocytes # (Manual) Monocytes # (Manual) PT INR APTT D-Dimer Sodium Potassium Chloride Carbon Dioxide Creatinine Glucose POC Glucose 110 H 128 H 121 H Calcium Phosphorus Ferritin AST Lactate Dehydrogenase C-Reactive Protein Total Protein Albumin Lipase Vitamin B12 Valproic Acid Coronavirus (PCR) 05/05/21 05/05/21 05/06/21 16:26 21:24 07:02 WBC 11.7 H RBC Hgb Hct MCV 99 H MCH 33 H MCHC RDW 15.5 H Lymph % (Auto) [place] % (Auto) Lymph # (Auto) [place] # (Auto) Seg Neutrophils % Seg Neuts % (Manual) 82.0 H Lymphocytes % (Manual) 4.0 L Monocytes % (Manual) Seg Neutrophils # Seg Neutrophils # Man 9.6 H Lymphocytes # (Manual) 0.5 L Monocytes # (Manual) PT INR APTT D-Dimer Sodium Potassium Chloride Carbon Dioxide Creatinine Glucose POC Glucose 113 H 130 H Calcium Phosphorus Ferritin AST Lactate Dehydrogenase C-Reactive Protein Total Protein Albumin Lipase Vitamin B12 Valproic Acid Coronavirus (PCR) 05/07/21 05/07/21 05/07/21 05:00 07:28 21:34 WBC RBC Hgb Hct MCV MCH MCHC RDW Lymph % (Auto) [place] % (Auto) Lymph # (Auto) [place] # (Auto) Seg Neutrophils % Seg Neuts % (Manual) Lymphocytes % (Manual) Monocytes % (Manual) Seg Neutrophils # Seg Neutrophils # Man Lymphocytes # (Manual) Monocytes # (Manual) PT 16.0 H INR 1.16 H APTT 43.8 H D-Dimer Sodium Potassium Chloride Carbon Dioxide Creatinine Glucose POC Glucose 112 H 123 H Calcium Phosphorus Ferritin AST Lactate Dehydrogenase C-Reactive Protein Total Protein Albumin Lipase Vitamin B12 Valproic Acid Coronavirus (PCR) 05/08/21 05/08/21 05/08/21 08:11 12:04 16:37 WBC RBC Hgb Hct MCV MCH MCHC RDW Lymph % (Auto) [place] % (Auto) Lymph # (Auto) [place] # (Auto) Seg Neutrophils % Seg Neuts % (Manual) Lymphocytes % (Manual) Monocytes % (Manual) Seg Neutrophils # Seg Neutrophils # Man Lymphocytes # (Manual) Monocytes # (Manual) PT INR APTT D-Dimer Sodium Potassium Chloride Carbon Dioxide Creatinine Glucose POC Glucose 158 H 117 H 118 H Calcium Phosphorus Ferritin AST Lactate Dehydrogenase C-Reactive Protein Total Protein Albumin Lipase Vitamin B12 Valproic Acid Coronavirus (PCR) 05/09/21 04:56 WBC RBC Hgb Hct MCV MCH MCHC RDW Lymph % (Auto) [place] % (Auto) Lymph # (Auto) [place] # (Auto) Seg Neutrophils % Seg Neuts % (Manual) Lymphocytes % (Manual) Monocytes % (Manual) Seg Neutrophils # Seg Neutrophils # Man Lymphocytes # (Manual) Monocytes # (Manual) PT INR APTT D-Dimer Sodium Potassium Chloride Carbon Dioxide Creatinine Glucose POC Glucose 113 H Calcium Phosphorus Ferritin AST Lactate Dehydrogenase C-Reactive Protein Total Protein Albumin Lipase Vitamin B12 Valproic Acid Coronavirus (PCR)
--- NOTE | 2021-05-09 08:26 | Progress Note ---
Assessment and Plan Assessment and plan: I have seen and examined the patient at the bedside patient is on high flow nasal cannula oxygen 35 L 75 FiO2 98 O2 sats nonrebreather 100% Considering hospice, [facility] evaluating. Patient remains on high flow nasal cannula oxygen 35 L/75% FiO2/nonrebreather/O2 sats 95 Aggressive CPT. Unable to wean off HF NC Status post PEG placement, tolerating tube feedings --Aspiration precautions Speech evaluated recommended PEG GI evaluated status post PEG placement 05/07/2021 Started tube feeding, tolerating well --Acute metabolic encephalopathy -CT head negative for acute abnormality -Baseline patient able to perform ADLs -Could be secondary to COVID infection -Neurology consulted, no recommendations at this time -MRI pending Guardian authorization obtained -will continue to monitor --COVID-19 pneumonia; Continue empiric antibiotics, assessed more than 90% Home O2 evaluation prior to discharge Follow cultures, home O2 evaluation --Acute hypoxic respiratory failure/critically ill On continuous HFNC 40 L, unable to wean, poor prognosis Pulmonary following Aggressive chest therapy Probably due to mucus plugging, COVID-19 pneumonia -currently on supplemental O2, will wean as tolerated -s/p dexamethasone x 10 days & remdesivir 5 days -CTA ordered, negative for PE but shows LLL atelectasis likely 2/2 to mucus plugging -ID following, assistance appreciated -continue levaquin, pulmonary toilet and deep suctioning -Pulmonology following, aggressive chest PT Prone positioning as tolerated --Leukocytosis Probably secondary to steroids and underlying disease process Treat the underlying cause, titrate Solu-Medrol dose decreased --Hypokalemia Closely monitor electrolytes Check magnesium --Hypernatremia 250cc q6h free water flushes will continue to monitor likely 2/2 to lack of oral intake --Severe protein calorie malnutrition BMI 20.3; albumin 2.4 Nutrition consulted continue tube feeding Considering PEG tube placement per GI --Social issues [facility], contact is Ms. Mattson to discuss clinical updates/consent for procedures ([phone]) We will closely monitor the patient and adjust management as needed Plan of care reviewed with the patient and his nurse Considering hospice placement I discussed with [facility] yesterday Disposition Plan: Continue medical management Patient needs PEG placement, consent obtained from the [facility] has given consent for the procedures PEG and MRI We will closely monitor 05/06/2021; patient scheduled for PEG tomorrow N.p.o. status, mild to moderate risk for the procedure No medical contraindication for PEG placement. 05/07/2021; patient scheduled for PEG today Case management working on LTAC versus SNF placement 05/08/2021; status post PEG placement yesterday Start tube feeds per protocol, continuous high flow nasal cannula oxygen 40 L Unable to wean, very poor prognosis, pulmonary following, pending LTAC evaluation 05/09/2021; continue high flow nasal cannula oxygen 35 L. Wean as tolerated Case management considering hospice, [facility] Will follow-up with their plan Considering hospice, I discussed with [facility], Arabella Twila Brannon . 05/08/2021 She is considering and wants to send to page form to be filled and sent to her. Case management is aware Closely monitor the patient and adjust management as needed Plan of care reviewed with the patient his nurse, case management team Possible hospice placement when approved by the [facility] History Interval history: I have seen and examined the patient at the bedside Patient's chart and medications reviewed Patient remains on high flow nasal cannula oxygen In mild distress Hospitalist Physical - Constitutional Vitals: Temp Pulse Resp BP Pulse Ox 98.1 F 134 H 18 108/70 97 05/09/21 04:54 05/09/21 04:54 05/09/21 04:54 05/09/21 04:54 05/09/21 04:54 General appearance: Present: mild distress, cachectic, other (Nonverbal, confused) - EENT Eyes: Present: PERRL, EOM intact - Neck Neck: Present: supple, normal ROM - Respiratory Respiratory effort: normal Respiratory: bilateral: diminished, negative: rales, rhonchi, wheezing - Cardiovascular Rhythm: regular Heart Sounds: Present: S1 & S2 - Extremities Extremities: no ischemia, No edema - Abdominal General gastrointestinal: soft, non-tender, non-distended, normal bowel sounds - Integumentary Integumentary: Present: clear, warm - Psychiatric Psychiatric: other (Minimally communicative) - Neurologic Neurologic: other (Minimally,) HEART Score - HEART Score Age: 45-65 Risk factors: 1-2 risk factors - Critical Actions Critical Actions: 0-3 pts:0.9-1.7%risk of adverse cardiac event.Candidate for discharge Results - Labs CBC & Chem 7: 05/06/21 07:02 05/03/21 09:20 Labs: Laboratory Last Values WBC 11.7 K/mm3 (4.5-11.0) H 05/06/21 07:02 RBC 3.68 M/mm3 (3.65-5.03) 05/06/21 07:02 Hgb 12.1 gm/dl (11.8-15.2) 05/06/21 07:02 Hct 36.5 % (35.5-45.6) 05/06/21 07:02 MCV 99 fl (84-94) H 05/06/21 07:02 MCH 33 pg (28-32) H 05/06/21 07:02 MCHC 33 % (32-34) 05/06/21 07:02 RDW 15.5 % (13.2-15.2) H 05/06/21 07:02 Plt Count 148 K/mm3 (140-440) 05/06/21 07:02 Lymph % (Auto) 5.9 % (13.4-35.0) L 04/23/21 09:24 Bledsoe % (Auto) Ep Specialist 04/25/21 06:24 Eos % (Auto) 0.0 % (0.0-4.3) 04/23/21 09:24 Baso % (Auto) 0.0 % (0.0-1.8) 04/23/21 09:24 Lymph # (Auto) 0.5 K/mm3 (1.2-5.4) L 04/23/21 09:24 [place]soe # (Auto) 0.8 K/mm3 (0.0-0.8) 04/23/21 09:24 Eos # (Auto) 0.0 K/mm3 (0.0-0.4) 04/23/21 09:24 Baso # (Auto) 0.0 K/mm3 (0.0-0.1) 04/23/21 09:24 Add Manual Diff Complete 05/06/21 07:02 Total Counted 100 05/06/21 07:02 Seg Neutrophils % Ep Specialist 04/28/21 08:03 Seg Neuts % (Manual) 82.0 % (40.0-70.0) H 05/06/21 07:02 Band Neutrophils % 9.0 % 05/06/21 07:02 Lymphocytes % (Manual) 4.0 % (13.4-35.0) L 05/06/21 07:02 Reactive Lymphs % (Man) 0 % 05/06/21 07:02 Monocytes % (Manual) 5.0 % (0.0-7.3) 05/06/21 07:02 Eosinophils % (Manual) 0 % (0.0-4.3) 05/06/21 07:02 Basophils % (Manual) 0 % (0.0-1.8) 05/06/21 07:02 Metamyelocytes % 0 % 05/06/21 07:02 Myelocytes % 0 % 05/06/21 07:02 Promyelocytes % 0 % 05/06/21 07:02 Blast Cells % 0 % 05/06/21 07:02 Nucleated RBC % Not Reportable 05/06/21 07:02 Seg Neutrophils # 7.2 K/mm3 (1.8-7.7) 04/23/21 09:24 Seg Neutrophils # Man 9.6 K/mm3 (1.8-7.7) H 05/06/21 07:02 Band Neutrophils # 1.1 K/mm3 05/06/21 07:02 Lymphocytes # (Manual) 0.5 K/mm3 (1.2-5.4) L 05/06/21 07:02 Abs React Lymphs (Man) 0.0 K/mm3 05/06/21 07:02 Monocytes # (Manual) 0.6 K/mm3 (0.0-0.8) 05/06/21 07:02 Eosinophils # (Manual) 0.0 K/mm3 (0.0-0.4) 05/06/21 07:02 Basophils # (Manual) 0.0 K/mm3 (0.0-0.1) 05/06/21 07:02 Metamyelocytes # 0.0 K/mm3 05/06/21 07:02 Myelocytes # 0.0 K/mm3 05/06/21 07:02 Promyelocytes # 0.0 K/mm3 05/06/21 07:02 Blast Cells # 0.0 K/mm3 05/06/21 07:02 WBC Morphology Not Reportable 05/06/21 07:02 Hypersegmented Neuts Not Reportable 05/06/21 07:02 Hyposegmented Neuts Not Reportable 05/06/21 07:02 Hypogranular Neuts Not Reportable 05/06/21 07:02 Smudge Cells Not Reportable 05/06/21 07:02 Toxic Granulation Not Reportable 05/06/21 07:02 Toxic Vacuolation Not Reportable 05/06/21 07:02 Dohle Bodies Not Reportable 05/06/21 07:02 Pelger-Huet Anomaly Not Reportable 05/06/21 07:02 Jeannette Rods Not Reportable 05/06/21 07:02 Platelet Estimate Consistent w auto 05/06/21 07:02 Clumped Platelets Not Reportable 05/06/21 07:02 Plt Clumps, EDTA Not Reportable 05/06/21 07:02 Large Platelets Not Reportable 05/06/21 07:02 Giant Platelets Not Reportable 05/06/21 07:02 Platelet Satelliting Not Reportable 05/06/21 07:02 Plt Morphology Comment Not Reportable 05/06/21 07:02 RBC Morphology Normal 05/06/21 07:02 Dimorphic RBCs Not Reportable 05/06/21 07:02 Polychromasia Not Reportable 05/06/21 07:02 Hypochromasia Not Reportable 05/06/21 07:02 Poikilocytosis Not Reportable 05/06/21 07:02 Anisocytosis Not Reportable 05/06/21 07:02 Microcytosis Not Reportable 05/06/21 07:02 Macrocytosis Not Reportable 05/06/21 07:02 Spherocytes Not Reportable 05/06/21 07:02 Pappenheimer Bodies Not Reportable 05/06/21 07:02 Sickle Cells Not Reportable 05/06/21 07:02 Target Cells Not Reportable 05/06/21 07:02 Tear Drop Cells Not Reportable 05/06/21 07:02 Ovalocytes Not Reportable 05/06/21 07:02 Helmet Cells Not Reportable 05/06/21 07:02 [place] Bodies Not Reportable 05/06/21 07:02 [place] Rings Not Reportable 05/06/21 07:02 [place] Cells Not Reportable 05/06/21 07:02 Bite Cells Not Reportable 05/06/21 07:02 Crenated Cell Not Reportable 05/06/21 07:02 Elliptocytes Not Reportable 05/06/21 07:02 Acanthocytes (Spur) Not Reportable 05/06/21 07:02 Rouleaux Not Reportable 05/06/21 07:02 Hemoglobin C Crystals Not Reportable 05/06/21 07:02 Schistocytes Not Reportable 05/06/21 07:02 Malaria parasites Not Reportable 05/06/21 07:02 ESR 60 mm/Hr (0-20) 05/04/21 13:28 Steve Bodies Not Reportable 05/06/21 07:02 Hem Pathologist Commnt No 05/06/21 07:02 PT 16.0 Sec. (12.2-14.9) H 05/07/21 07:28 INR 1.16 (0.87-1.13) H 05/07/21 07:28 APTT 43.8 Sec. (24.2-36.6) H 05/07/21 07:28 D-Dimer 690.97 ng/mlDDU (0-234) H 04/30/21 06:20 Sodium 149 mmol/L (137-145) H 05/03/21 09:20 Potassium 3.5 mmol/L (3.6-5.0) L 05/03/21 09:20 Chloride 110.0 mmol/L (98-107) H 05/03/21 09:20 Carbon Dioxide 27 mmol/L (22-30) 05/03/21 09:20 Anion Gap 16 mmol/L 05/03/21 09:20 BUN 16 mg/dL (9-20) 05/03/21 09:20 Creatinine 0.3 mg/dL (0.8-1.3) L 05/03/21 09:20 Estimated GFR > 60 ml/min 05/03/21 09:20 BUN/Creatinine Ratio 53 % 05/03/21 09:20 Glucose 113 mg/dL (75-100) H 05/03/21 09:20 POC Glucose 113 mg/dL (70-105) H 05/09/21 04:56 Lactic Acid 1.20 mmol/L (0.7-2.0) 04/21/21 20:26 Calcium 8.0 mg/dL (8.4-10.2) L 05/03/21 09:20 Phosphorus 2.30 mg/dL (2.5-4.5) L 04/23/21 09:24 Magnesium 1.80 mg/dL (1.7-2.3) 04/23/21 09:24 Ferritin 930.1 ng/mL (30.0-300.0) H 04/30/21 06:20 Total Bilirubin 0.70 mg/dL (0.1-1.2) 04/29/21 04:00 AST 63 units/L (5-40) H 04/29/21 04:00 ALT 37 units/L (7-56) 04/29/21 04:00 Alkaline Phosphatase 58 units/L (35-129) 04/29/21 04:00 Lactate Dehydrogenase 423 units/L (91-180) H 04/30/21 06:20 C-Reactive Protein 15.40 mg/dL (0.00-1.30) H 05/04/21 13:28 Total Protein 5.6 g/dL (6.3-8.2) L 04/29/21 04:00 Albumin 2.4 g/dL (3.9-5) L 04/29/21 04:00 Albumin/Globulin Ratio 0.8 % 04/29/21 04:00 Lipase 7 units/L (13-60) L 04/21/21 16:08 Vitamin B12 1039 pg/mL (211-911) H 04/24/21 07:56 Procalcitonin 0.92 ng/mL (<0.15) 05/05/21 09:30 TSH 1.330 mlU/mL (0.270-4.200) 04/24/21 07:56 Free T4 1.03 ng/dL (0.76-1.46) 04/24/21 07:56 Urine Color Leticia (Yellow) 04/21/21 Unknown Urine Turbidity Clear (Clear) 04/21/21 Unknown Urine pH 5.0 (5.0-7.0) 04/21/21 Unknown Ur Specific [place] 1.027 (1.003-1.030) 04/21/21 Unknown Urine Protein 100 mg/dl mg/dL (Negative) 04/21/21 Unknown Urine Glucose (UA) Neg mg/dL (Negative) 04/21/21 Unknown Urine Ketones 20 mg/dL (Negative) 04/21/21 Unknown Urine Blood Mod (Negative) 04/21/21 Unknown Urine Nitrite Neg (Negative) 04/21/21 Unknown Urine Bilirubin Neg (Negative) 04/21/21 Unknown Urine Urobilinogen 4.0 mg/dL (<2.0) 04/21/21 Unknown Ur Leukocyte Esterase Neg (Negative) 04/21/21 Unknown Urine WBC (Auto) < 1.0 /HPF (0.0-6.0) 04/21/21 Unknown Urine RBC (Auto) < 1.0 /HPF (0.0-6.0) 04/21/21 Unknown Urine Mucus Few /HPF 04/21/21 Unknown Valproic Acid 10.9 ug/mL (50-100) L 05/04/21 13:28 Coronavirus (PCR) Positive (Negative) A 04/22/21 Unknown [place]/IV: Voiding Method Diaper Active Medications - Current Medications Current Medications: Generic Name Dose Route Start Last Admin Trade Name Freq PRN Reason Stop Dose Admin Acetaminophen 650 mg 04/21/21 22:31 05/08/21 23:18 Acetaminophen 325 Mg Tab PO 650 mg Q4H PRN Administration Pain MILD(1-3)/Fever >100.5/RAY Acetylcysteine 200 mg 05/08/21 14:00 05/08/21 22:08 Acetylcysteine 20% 200 Mg/1 Ml *For Inhalation Use* INHALATION 05/10/21 08:01 Not Given Q6HRT [facility] Albuterol 2 puff 05/08/21 08:00 05/08/21 22:07 Albuterol 8.5 Gm Mdi Inhalation IH 05/13/21 07:59 Not Given TIDRT [facility] Lipase/Protease/Amylase 1 each 05/07/21 13:04 Lipase 10,500/Protease 25,000/Amylase 43,750 (Units) Dr Espinoza FEEDTUBE PRN PRN For Clogged Feeding Tube Famotidine 20 mg 04/22/21 10:00 05/08/21 22:35 Famotidine 20 Mg Tab PO 20 mg BID EDDIE Administration Glycopyrrolate 2 mg 05/01/21 14:00 05/08/21 22:35 Glycopyrrolate 2 Mg Tab PO 2 mg BID EDDIE Administration Guaifenesin 200 mg 04/24/21 08:28 05/04/21 04:48 Guaifenesin 100 Mg/5 Ml Oral Liqd PO 200 mg Q4H PRN Administration Cough Metoclopramide HCl 10 mg 04/21/21 22:31 Metoclopramide 10 Mg/2 Ml Inj IV Q6H PRN Nausea And Vomiting Metoprolol Tartrate 12.5 mg 05/04/21 22:00 05/08/21 22:34 Metoprolol Tartrate 25 Mg Tab PO 12.5 mg BID EDDIE Administration Metoprolol Tartrate 2.5 mg 05/06/21 16:12 05/07/21 11:10 Metoprolol Tartrate 5 Mg/5 Ml Inj IV 2.5 mg Q6HR PRN Administration Tachyarrhythmias Ondansetron HCl 4 mg 04/21/21 22:31 Ondansetron 4 Mg/2 Ml Inj IV Q8H PRN Nausea And Vomiting Oxycodone/Acetaminophen 1 tab 04/21/21 22:31 04/22/21 22:35 Oxycodone /Acetaminophen 5-325mg Tab PO 1 tab Q6H PRN Administration Pain, Moderate (4-6) Simple Syrup 15 ml 05/07/21 13:04 Simple Syrup 15 Ml FEEDTUBE PRN PRN Hypoglycemia Simple Syrup 30 ml 05/07/21 13:04 Simple Syrup 15 Ml FEEDTUBE PRN PRN Hypoglycemia Sodium Bicarbonate 325 mg 05/07/21 13:04 Sodium Bicarbonate 325 Mg Tab FEEDTUBE PRN PRN For Clogged Feeding Tube Sodium Chloride 10 ml 04/22/21 10:00 05/08/21 22:35 Sodium Chloride 0.9% 10 Ml Flush Syringe IV 10 ml BID EDDIE Administration Sodium Chloride 10 ml 04/21/21 22:31 Sodium Chloride 0.9% 10 Ml Flush Syringe IV PRN PRN LINE FLUSH Valproic Acid 250 mg 05/01/21 22:00 05/08/21 22:35 Valproic Acid 250 Mg/5 Ml Oral Liqd PO 250 mg QHS EDDIE Administration Nutrition/Malnutrition Assess - Dietary Evaluation Nutrition/Malnutrition Findings: Nutrition Notes Start: 04/22/21 18:07 Freq: Status: Active Protocol: Document 05/07/21 12:59 RICKY (Rec: 05/07/21 13:18 RICKY [id number]) Nutrition Notes Initial or Follow up Brief Note Current Diet TF-Jevity 1.2 Louie @ 56 ml/hr ( since D 05/07). Height 6 ft Weight 67.5 kg [place] Body Weight (kg) 80.90 BMI 20.2 Weight change and time frame No body weight change reported . Weight Status Appropriate Subjective/Other Information RD consult for routine F/U on dietary advancement or PEG tube placement. PEG tube placed on 05/07. TF ordered. Percent of energy/protein needs met: Prescribed Jevity 1.2 Louie @ 56 ml/hr provides for energy/ protein needs (1,600 Kcal/74 g ) during LOS, 100% Kcal; 90% AA. #1 Nutrition Diagnosis Inadequate oral intake Comments: Change Nutrition Diagnosis. PEG tube placed today; TF resumed. Diagnosis Progress(for reassessment Improved documentation) Nutrition Intervention Nutrition Support: Resume (post PEG) Jevity 1.2 Louie @ 56 ml/hr. Flush: 90 ml water Q 4 hr. % RDI: 100% Kcal; 90% AA. Goal #1 Provide at least 75% of energy /protein needs through Enteral Feeding during LOS. Follow-Up By: 05/11/21 Additional Comments Continue monitoring TF tolerance and BM.
[2021-05-09] MEDS: ACETYLCYSTEINE 20% 200 MG/1 ML *FOR INHALATION USE INHALATION SCH ×3 (11:08→14:49)
[2021-05-09] MEDS: FAMOTIDINE 20 MG TAB PO SCH ×2 (11:18→22:31)
[2021-05-09] MEDS: METOPROLOL TARTRATE 25 MG TAB PO SCH ×2 (11:20→22:35)
[2021-05-09] MEDS ORDERED: ALBUTEROL 2.5 MG/3 ML NEBU IH PRN (12:00)
[2021-05-09] MEDS: VALPROIC ACID 250 MG/5 ML ORAL LIQD PO SCH (22:38)
--- NOTE | 2021-05-09 23:07 | Progress Note ---
Assessment and Plan Assessment and plan: I have seen and examined the patient at the bedside patient is on high flow nasal cannula oxygen 35 L 75 FiO2 98 O2 sats nonrebreather 100% Considering hospice, [facility] evaluating. Patient remains on high flow nasal cannula oxygen 35 L/75% FiO2/nonrebreather/O2 sats 95 Aggressive CPT. Unable to wean off HF NC Status post PEG placement, tolerating tube feedings --Aspiration precautions Speech evaluated recommended PEG GI evaluated status post PEG placement 05/07/2021 Started tube feeding, tolerating well --Acute metabolic encephalopathy -CT head negative for acute abnormality -Baseline patient able to perform ADLs -Could be secondary to COVID infection -Neurology consulted, no recommendations at this time -MRI pending Guardian authorization obtained -will continue to monitor --COVID-19 pneumonia; Continue empiric antibiotics, assessed more than 90% Home O2 evaluation prior to discharge Follow cultures, home O2 evaluation --Acute hypoxic respiratory failure/critically ill On continuous HFNC 40 L, unable to wean, poor prognosis Pulmonary following Aggressive chest therapy Probably due to mucus plugging, COVID-19 pneumonia -currently on supplemental O2, will wean as tolerated -s/p dexamethasone x 10 days & remdesivir 5 days -CTA ordered, negative for PE but shows LLL atelectasis likely 2/2 to mucus plugging -ID following, assistance appreciated -continue levaquin, pulmonary toilet and deep suctioning -Pulmonology following, aggressive chest PT Prone positioning as tolerated --Leukocytosis Probably secondary to steroids and underlying disease process Treat the underlying cause, titrate Solu-Medrol dose decreased --Hypokalemia Closely monitor electrolytes Check magnesium --Hypernatremia 250cc q6h free water flushes will continue to monitor likely 2/2 to lack of oral intake --Severe protein calorie malnutrition BMI 20.3; albumin 2.4 Nutrition consulted continue tube feeding Considering PEG tube placement per GI --Social issues Patient is a [facility], contact is Ms. Mattson to discuss clinical updates/consent for procedures ([phone]) We will closely monitor the patient and adjust management as needed Plan of care reviewed with the patient and his nurse Considering hospice placement I discussed with [facility] on 05/08/2021 Closely monitor the patient and adjust management as needed Plan of care reviewed with the patient his nurse, case management team Possible hospice placement when approved by the [facility] Brief history and daily hospital course: 66-year-old male patient with significant past medical history of COVID-19 pneumonia acute encephalopathy acute hypoxic respiratory failure requiring supplemental oxygen leukocytosis, [facility], dysphagia requiring PEG placement,Chronic hypoxia and congestion due to mucous plug on CTA pulmonary following with aggressive chest PT, unable to do bronc due to COVID status, poor prognosis, caregivers have considered hospice placement given his multiple medical problems and general debility, discussed discharge planning to hospice in detail with the [facility] on 05/08/2021, who is considering DC plan, case management aggressively processing discharge planning Disposition Plan: Continue medical management [facility] has given consent for the procedures PEG , patient has PEG and receiving intermittent feeds, to avoid aspiration 05/06/2021; patient scheduled for PEG tomorrow N.p.o. status, mild to moderate risk for the procedure No medical contraindication for PEG placement. 05/07/2021; patient scheduled for PEG today Case management working on LTAC versus SNF placement 05/08/2021; status post PEG placement yesterday Start tube feeds per protocol, continuous high flow nasal cannula oxygen 40 L Unable to wean, very poor prognosis, pulmonary following, pending LTAC evaluation 05/09/2021; continue high flow nasal cannula oxygen 35 L. Wean as tolerated Case management considering hospice, discussed with [facility] yesterday Will follow-up with their plan 05/10/2021; mild hypotension, due to poor nutrition due to risk of aspiration nurse gives only intermittent tube feeding Resume tube feeding with aspiration precautions head end of the bed 45 degrees, reduce the flow rate to 20 to 30 mL intermittently And fluid bolus to 50 mL normal saline intermittently as needed. Patient is critically ill with poor prognosis Considering hospice, I discussed with [facility], Ms. Twila Brannon . 05/08/2021 She is considering and wants to send to page form to be filled and sent to her. Case management is aware History Interval history: I have seen and examined the patient at the bedside Isolation precautions and PPE protocols strictly followed per CDC guidelines of COVID-19 Patient is noncommunicative, chronically ill looking and cachectic In mild distress Hospitalist Physical - Constitutional Vitals: Temp Pulse Resp BP Pulse Ox 97.6 F 64 20 128/78 96 05/09/21 21:13 01/15/22 22:35 05/09/21 20:41 05/09/21 22:35 05/09/21 21:13 General appearance: Present: mild distress, cachectic, other (Nonverbal, confused) - EENT Eyes: Present: PERRL - Neck Neck: Present: supple, normal ROM - Respiratory Respiratory effort: normal Respiratory: bilateral: diminished, rhonchi, negative: rales, wheezing - Cardiovascular Rhythm: regular Heart Sounds: Present: S1 & S2 - Extremities Extremities: no ischemia, No edema - Abdominal General gastrointestinal: soft, non-tender, non-distended, normal bowel sounds - Integumentary Integumentary: Present: clear, warm - Psychiatric Psychiatric: appropriate mood/affect, cooperative - Neurologic Neurologic: CNII-XII intact, moves all extremities HEART Score - HEART Score Age: 45-65 Risk factors: 1-2 risk factors - Critical Actions Critical Actions: 0-3 pts:0.9-1.7%risk of adverse cardiac event.Candidate for discharge Results - Labs CBC & Chem 7: 05/06/21 07:02 05/03/21 09:20 Labs: Laboratory Last Values WBC 11.7 K/mm3 (4.5-11.0) H 05/06/21 07:02 RBC 3.68 M/mm3 (3.65-5.03) 05/06/21 07:02 Hgb 12.1 gm/dl (11.8-15.2) 05/06/21 07:02 Hct 36.5 % (35.5-45.6) 05/06/21 07:02 MCV 99 fl (84-94) H 05/06/21 07:02 MCH 33 pg (28-32) H 05/06/21 07:02 MCHC 33 % (32-34) 05/06/21 07:02 RDW 15.5 % (13.2-15.2) H 05/06/21 07:02 Plt Count 148 K/mm3 (140-440) 05/06/21 07:02 Lymph % (Auto) 5.9 % (13.4-35.0) L 04/23/21 09:24 [place] % (Auto) Head Chef 04/25/21 06:24 Eos % (Auto) 0.0 % (0.0-4.3) 04/23/21 09:24 Baso % (Auto) 0.0 % (0.0-1.8) 04/23/21 09:24 Lymph # (Auto) 0.5 K/mm3 (1.2-5.4) L 04/23/21 09:24 [place] # (Auto) 0.8 K/mm3 (0.0-0.8) 04/23/21 09:24 Eos # (Auto) 0.0 K/mm3 (0.0-0.4) 04/23/21 09:24 Baso # (Auto) 0.0 K/mm3 (0.0-0.1) 04/23/21 09:24 Add Manual Diff Complete 05/06/21 07:02 Total Counted 100 05/06/21 07:02 Seg Neutrophils % Head Chef 04/28/21 08:03 Seg Neuts % (Manual) 82.0 % (40.0-70.0) H 05/06/21 07:02 Band Neutrophils % 9.0 % 05/06/21 07:02 Lymphocytes % (Manual) 4.0 % (13.4-35.0) L 05/06/21 07:02 Reactive Lymphs % (Man) 0 % 05/06/21 07:02 Monocytes % (Manual) 5.0 % (0.0-7.3) 05/06/21 07:02 Eosinophils % (Manual) 0 % (0.0-4.3) 05/06/21 07:02 Basophils % (Manual) 0 % (0.0-1.8) 05/06/21 07:02 Metamyelocytes % 0 % 05/06/21 07:02 Myelocytes % 0 % 05/06/21 07:02 Promyelocytes % 0 % 05/06/21 07:02 Blast Cells % 0 % 05/06/21 07:02 Nucleated RBC % Not Reportable 05/06/21 07:02 Seg Neutrophils # 7.2 K/mm3 (1.8-7.7) 04/23/21 09:24 Seg Neutrophils # Man 9.6 K/mm3 (1.8-7.7) H 05/06/21 07:02 Band Neutrophils # 1.1 K/mm3 05/06/21 07:02 Lymphocytes # (Manual) 0.5 K/mm3 (1.2-5.4) L 05/06/21 07:02 Abs React Lymphs (Man) 0.0 K/mm3 05/06/21 07:02 Monocytes # (Manual) 0.6 K/mm3 (0.0-0.8) 05/06/21 07:02 Eosinophils # (Manual) 0.0 K/mm3 (0.0-0.4) 05/06/21 07:02 Basophils # (Manual) 0.0 K/mm3 (0.0-0.1) 05/06/21 07:02 Metamyelocytes # 0.0 K/mm3 05/06/21 07:02 Myelocytes # 0.0 K/mm3 05/06/21 07:02 Promyelocytes # 0.0 K/mm3 05/06/21 07:02 Blast Cells # 0.0 K/mm3 05/06/21 07:02 WBC Morphology Not Reportable 05/06/21 07:02 Hypersegmented Neuts Not Reportable 05/06/21 07:02 Hyposegmented Neuts Not Reportable 05/06/21 07:02 Hypogranular Neuts Not Reportable 05/06/21 07:02 Smudge Cells Not Reportable 05/06/21 07:02 Toxic Granulation Not Reportable 05/06/21 07:02 Toxic Vacuolation Not Reportable 05/06/21 07:02 Dohle Bodies Not Reportable 05/06/21 07:02 Pelger-Huet Anomaly Not Reportable 05/06/21 07:02 Jeannette Rods Not Reportable 05/06/21 07:02 Platelet Estimate Consistent w auto 05/06/21 07:02 Clumped Platelets Not Reportable 05/06/21 07:02 Plt Clumps, EDTA Not Reportable 05/06/21 07:02 Large Platelets Not Reportable 05/06/21 07:02 Giant Platelets Not Reportable 05/06/21 07:02 Platelet Satelliting Not Reportable 05/06/21 07:02 Plt Morphology Comment Not Reportable 05/06/21 07:02 RBC Morphology Normal 05/06/21 07:02 Dimorphic RBCs Not Reportable 05/06/21 07:02 Polychromasia Not Reportable 05/06/21 07:02 Hypochromasia Not Reportable 05/06/21 07:02 Poikilocytosis Not Reportable 05/06/21 07:02 Anisocytosis Not Reportable 05/06/21 07:02 Microcytosis Not Reportable 05/06/21 07:02 Macrocytosis Not Reportable 05/06/21 07:02 Spherocytes Not Reportable 05/06/21 07:02 Pappenheimer Bodies Not Reportable 05/06/21 07:02 Sickle Cells Not Reportable 05/06/21 07:02 Target Cells Not Reportable 05/06/21 07:02 Tear Drop Cells Not Reportable 05/06/21 07:02 Ovalocytes Not Reportable 05/06/21 07:02 Helmet Cells Not Reportable 05/06/21 07:02 [place] Bodies Not Reportable 05/06/21 07:02 Worth Rings Not Reportable 05/06/21 07:02 [place]elo Cells Not Reportable 05/06/21 07:02 Bite Cells Not Reportable 05/06/21 07:02 Crenated Cell Not Reportable 05/06/21 07:02 Elliptocytes Not Reportable 05/06/21 07:02 Acanthocytes (Spur) Not Reportable 05/06/21 07:02 Rouleaux Not Reportable 05/06/21 07:02 Hemoglobin C Crystals Not Reportable 05/06/21 07:02 Schistocytes Not Reportable 05/06/21 07:02 Malaria parasites Not Reportable 05/06/21 07:02 ESR 60 mm/Hr (0-20) 05/04/21 13:28 Steve Bodies Not Reportable 05/06/21 07:02 Hem Pathologist Commnt No 05/06/21 07:02 PT 16.0 Sec. (12.2-14.9) H 05/07/21 07:28 INR 1.16 (0.87-1.13) H 05/07/21 07:28 APTT 43.8 Sec. (24.2-36.6) H 05/07/21 07:28 D-Dimer 690.97 ng/mlDDU (0-234) H 04/30/21 06:20 Sodium 149 mmol/L (137-145) H 05/03/21 09:20 Potassium 3.5 mmol/L (3.6-5.0) L 05/03/21 09:20 Chloride 110.0 mmol/L (98-107) H 05/03/21 09:20 Carbon Dioxide 27 mmol/L (22-30) 05/03/21 09:20 Anion Gap 16 mmol/L 05/03/21 09:20 BUN 16 mg/dL (9-20) 05/03/21 09:20 Creatinine 0.3 mg/dL (0.8-1.3) L 05/03/21 09:20 Estimated GFR > 60 ml/min 05/03/21 09:20 BUN/Creatinine Ratio 53 % 05/03/21 09:20 Glucose 113 mg/dL (75-100) H 05/03/21 09:20 POC Glucose 139 mg/dL (70-105) H 05/09/21 21:02 Lactic Acid 1.20 mmol/L (0.7-2.0) 04/21/21 20:26 Calcium 8.0 mg/dL (8.4-10.2) L 05/03/21 09:20 Phosphorus 2.30 mg/dL (2.5-4.5) L 04/23/21 09:24 Magnesium 1.80 mg/dL (1.7-2.3) 04/23/21 09:24 Ferritin 930.1 ng/mL (30.0-300.0) H 04/30/21 06:20 Total Bilirubin 0.70 mg/dL (0.1-1.2) 04/29/21 04:00 AST 63 units/L (5-40) H 04/29/21 04:00 ALT 37 units/L (7-56) 04/29/21 04:00 Alkaline Phosphatase 58 units/L (35-129) 04/29/21 04:00 Lactate Dehydrogenase 423 units/L (91-180) H 04/30/21 06:20 C-Reactive Protein 15.40 mg/dL (0.00-1.30) H 05/04/21 13:28 Total Protein 5.6 g/dL (6.3-8.2) L 04/29/21 04:00 Albumin 2.4 g/dL (3.9-5) L 04/29/21 04:00 Albumin/Globulin Ratio 0.8 % 04/29/21 04:00 Lipase 7 units/L (13-60) L 04/21/21 16:08 Vitamin B12 1039 pg/mL (211-911) H 04/24/21 07:56 Procalcitonin 0.92 ng/mL (<0.15) 05/05/21 09:30 TSH 1.330 mlU/mL (0.270-4.200) 04/24/21 07:56 Free T4 1.03 ng/dL (0.76-1.46) 04/24/21 07:56 Urine Color Leticia (Yellow) 04/21/21 Unknown Urine Turbidity Clear (Clear) 04/21/21 Unknown Urine pH 5.0 (5.0-7.0) 04/21/21 Unknown Ur Specific [place] 1.027 (1.003-1.030) 04/21/21 Unknown Urine Protein 100 mg/dl mg/dL (Negative) 04/21/21 Unknown Urine Glucose (UA) Neg mg/dL (Negative) 04/21/21 Unknown Urine Ketones 20 mg/dL (Negative) 04/21/21 Unknown Urine Blood Mod (Negative) 04/21/21 Unknown Urine Nitrite Neg (Negative) 04/21/21 Unknown Urine Bilirubin Neg (Negative) 04/21/21 Unknown Urine Urobilinogen 4.0 mg/dL (<2.0) 04/21/21 Unknown Ur Leukocyte Esterase Neg (Negative) 04/21/21 Unknown Urine WBC (Auto) < 1.0 /HPF (0.0-6.0) 04/21/21 Unknown Urine RBC (Auto) < 1.0 /HPF (0.0-6.0) 04/21/21 Unknown Urine Mucus Few /HPF 04/21/21 Unknown Valproic Acid 10.9 ug/mL (50-100) L 05/04/21 13:28 Coronavirus (PCR) Positive (Negative) A 05/09/21 Unknown [place]/IV: Voiding Method Diaper Active Medications - Current Medications Current Medications: Generic Name Dose Route Start Last Admin Trade Name Freq PRN Reason Stop Dose Admin Acetaminophen 650 mg 04/21/21 22:31 05/08/21 23:18 Acetaminophen 325 Mg Tab PO 650 mg Q4H PRN Administration Pain MILD(1-3)/Fever >100.5/RAY Acetylcysteine 200 mg 05/08/21 14:00 05/09/21 14:49 Acetylcysteine 20% 200 Mg/1 Ml *For Inhalation Use* INHALATION 05/10/21 08:01 Not Given Q6HRT [facility] Albuterol 2 puff 05/08/21 08:00 05/08/21 22:07 Albuterol 8.5 Gm Mdi Inhalation IH 05/13/21 07:59 Not Given TIDRT [facility] Albuterol 2.5 mg 05/09/21 12:00 Albuterol 2.5 Mg/3 Ml Nebu IH Q4HRT PRN Shortness Of Breath Lipase/Protease/Amylase 1 each 05/07/21 13:04 Lipase 10,500/Protease 25,000/Amylase 43,750 (Units) Dr Alexis FEEDTUBE PRN PRN For Clogged Feeding Tube Famotidine 20 mg 04/22/21 10:00 05/09/21 22:31 Famotidine 20 Mg Tab PO 20 mg BID EDDIE Administration Guaifenesin 200 mg 04/24/21 08:28 05/04/21 04:48 Guaifenesin 100 Mg/5 Ml Oral Liqd PO 200 mg Q4H PRN Administration Cough Metoclopramide HCl 10 mg 04/21/21 22:31 Metoclopramide 10 Mg/2 Ml Inj IV Q6H PRN Nausea And Vomiting Metoprolol Tartrate 12.5 mg 05/04/21 22:00 05/09/21 22:35 Metoprolol Tartrate 25 Mg Tab PO 12.5 mg BID [facility] Administration Metoprolol Tartrate 2.5 mg 05/06/21 16:12 05/07/21 11:10 Metoprolol Tartrate 5 Mg/5 Ml Inj IV 2.5 mg Q6HR PRN Administration Tachyarrhythmias Ondansetron HCl 4 mg 04/21/21 22:31 Ondansetron 4 Mg/2 Ml Inj IV Q8H PRN Nausea And Vomiting Oxycodone/Acetaminophen 1 tab 04/21/21 22:31 04/22/21 22:35 Oxycodone /Acetaminophen 5-325mg Tab PO 1 tab Q6H PRN Administration Pain, Moderate (4-6) Simple Syrup 15 ml 05/07/21 13:04 Simple Syrup 15 Ml FEEDTUBE PRN PRN Hypoglycemia Simple Syrup 30 ml 05/07/21 13:04 Simple Syrup 15 Ml FEEDTUBE PRN PRN Hypoglycemia Sodium Bicarbonate 325 mg 05/07/21 13:04 Sodium Bicarbonate 325 Mg Tab FEEDTUBE PRN PRN For Clogged Feeding Tube Sodium Chloride 10 ml 04/22/21 10:00 05/09/21 22:40 Sodium Chloride 0.9% 10 Ml Flush Syringe IV 10 ml BID EDDIE Administration Sodium Chloride 10 ml 04/21/21 22:31 Sodium Chloride 0.9% 10 Ml Flush Syringe IV PRN PRN LINE FLUSH Valproic Acid 250 mg 05/01/21 22:00 05/09/21 22:38 Valproic Acid 250 Mg/5 Ml Oral Liqd PO 250 mg QHS EDDIE Administration Nutrition/Malnutrition Assess - Dietary Evaluation Nutrition/Malnutrition Findings: Nutrition Notes Start: 04/22/21 18:07 Freq: Status: Active Protocol: Document 05/07/21 12:59 RICKY (Rec: 05/07/21 13:18 RICKY [id number]) Nutrition Notes Initial or Follow up Brief Note Current Diet TF-Jevity 1.2 Louie @ 56 ml/hr ( since D 05/07). Height 6 ft Weight 67.5 kg [place] Body Weight (kg) 80.90 BMI 20.2 Weight change and time frame No body weight change reported . Weight Status Appropriate Subjective/Other Information RD consult for routine F/U on dietary advancement or PEG tube placement. PEG tube placed on 05/07. TF ordered. Percent of energy/protein needs met: Prescribed Jevity 1.2 Louie @ 56 ml/hr provides for energy/ protein needs (1,600 Kcal/74 g ) during LOS, 100% Kcal; 90% AA. #1 Nutrition Diagnosis Inadequate oral intake Comments: Change Nutrition Diagnosis. PEG tube placed today; TF resumed. Diagnosis Progress(for reassessment Improved documentation) Nutrition Intervention Nutrition Support: Resume (post PEG) Jevity 1.2 Louie @ 56 ml/hr. Flush: 90 ml water Q 4 hr. % RDI: 100% Kcal; 90% AA. Goal #1 Provide at least 75% of energy /protein needs through Enteral Feeding during LOS. Follow-Up By: 05/11/21 Additional Comments Continue monitoring TF tolerance and BM.
[2021-05-10] MEDS: FREE WATER PO SCH ×2 (00:10→03:33)
[2021-05-10] MEDS: ACETYLCYSTEINE 20% 200 MG/1 ML *FOR INHALATION USE INHALATION SCH (07:34)
[2021-05-10] MEDS: FAMOTIDINE 20 MG TAB PO SCH ×2 (09:52→22:40)
[2021-05-10] MEDS: METOPROLOL TARTRATE 25 MG TAB PO SCH ×2 (09:52→22:41)
--- NOTE | 2021-05-10 10:53 | Progress Note ---
Assessment and Plan 66 y/o male with altered mental status found to be COVID positive, now with worsening respiratory failure. 05/10/21: Contniue CPT. Called by RT yesterday for changes in breathing pattern but still with good sats. Patient is not a candidate for bipap so next step would be intubation. Asked RT to pass this on to night time staff. Still awaiting to hear from guardianship about hospice as all of their patient's are full code and they will likely not change his code status. Poor prognosis. 05/09/21: Given current clinical state, no improvement in pulmonary status, increased weakness with continued risk for aspiration in the face of COVID 19 pneumonia, I agree that hospice would be a reasonable option for this patient. Not sure what company could take current oxygen demand so if this is pursued it would likely need to be inpatient with plans of comfort and deescalation. Continue CPT and mucomyst nebs. Guarded to poor prognosis. 05/08/21: Continue CPT. Will try mucomyst nebs to see if this helps with sputum expectoration given weak cough. Guarded prognosis. Prone if able. 05/07/21: Continue CPT. Will speak with pharmacy but may need hypertonic saline neb to help induce cough to help expectorate mucous. Ideally should be bronched, but would need to either be intubated or have LMA and doubt GI will allow given COVID positive state. Guarded to poor prognosis. 05/06/21: Please continue CPT multiple times daily. Please document this. Suggest proning patient to help with oxygenation if possible. Guarded prognosis. 05/05/21: Increased CPT to 3-6x daily. Should be done with scheduled albuterol therapy. Please wake patient up for scheduled meds as we are trying to remove mucous and improve oxygenation. Will discuss with RT to pass on to night shit. Prone as much as possible. Daily net negative fluid balance 1. Mucous plug on CTA. Needs CPT but more than daily. Please increase to at least TID 2. Prone as much as possible and sleep prone at night 3. Has already finished steroids 4. Guarded prognosis. Subjective Date of service: 05/10/21 Principal diagnosis: Encephalopathy,COVID-19 Interval history: NO acute events. Called by RT about changes in respiratory status this afternoon but maintaining sats. Objective Vital Signs - 12hr 05/10/21 05/10/21 02:00 07:32 O2 Sat by Pulse 96 98 Oximetry Constitutional: other (on nrb mask sat 100%, opens eyes to tactile stimuli, doesnt follow command ) ENT: oropharynx moist, oropharynx dry Ascultation: Bilateral: rhonchi (sl better) Cardiovascular: regular rate and rhythm, PVC's noted Gastrointestinal: normoactive bowel sounds Integumentary: normal CBC and BMP: 05/11/21 02:30 05/11/21 02:30 ABG, PT/INR, D-dimer: PT/INR, D-dimer PT 16.0 Sec. (12.2-14.9) H 05/07/21 07:28 INR 1.16 (0.87-1.13) H 05/07/21 07:28 D-Dimer 690.97 ng/mlDDU (0-234) H 04/30/21 06:20 Abnormal lab findings: Abnormal Labs 04/21/21 04/21/21 04/22/21 16:08 16:08 00:20 WBC RBC Hgb Hct MCV 96 H MCH MCHC RDW Lymph % (Auto) 8.5 L [place] % (Auto) 15.8 H Lymph # (Auto) 0.9 L [place] # (Auto) 1.7 H Seg Neutrophils % 75.6 H Seg Neuts % (Manual) Lymphocytes % (Manual) Monocytes % (Manual) Seg Neutrophils # 8.0 H Seg Neutrophils # Man Lymphocytes # (Manual) Monocytes # (Manual) PT INR APTT D-Dimer 621.94 H Sodium Potassium Chloride Carbon Dioxide Creatinine 0.6 L Glucose 107 H POC Glucose Calcium 8.3 L Phosphorus Ferritin AST 136 H Lactate Dehydrogenase C-Reactive Protein Total Protein 6.2 L Albumin 3.0 L Lipase 7 L Vitamin B12 Valproic Acid Coronavirus (PCR) 04/22/21 04/22/21 04/22/21 00:20 00:20 06:51 WBC RBC Hgb Hct MCV 95 H MCH MCHC RDW Lymph % (Auto) [place] % (Auto) Lymph # (Auto) [place] # (Auto) Seg Neutrophils % Seg Neuts % (Manual) 91.0 H Lymphocytes % (Manual) 1.0 L Monocytes % (Manual) Seg Neutrophils # Seg Neutrophils # Man Lymphocytes # (Manual) 0.1 L Monocytes # (Manual) PT INR APTT D-Dimer Sodium Potassium Chloride Carbon Dioxide Creatinine Glucose POC Glucose Calcium Phosphorus Ferritin 427.3 H AST Lactate Dehydrogenase 379 H C-Reactive Protein 9.20 H Total Protein Albumin Lipase Vitamin B12 Valproic Acid Coronavirus (PCR) 04/22/21 04/22/21 04/23/21 06:51 Unknown 09:24 WBC RBC Hgb Hct MCV 96 H MCH MCHC RDW Lymph % (Auto) 5.9 L [place] % (Auto) 9.3 H Lymph # (Auto) 0.5 L [place] # (Auto) Seg Neutrophils % 84.8 H Seg Neuts % (Manual) Lymphocytes % (Manual) Monocytes % (Manual) Seg Neutrophils # Seg Neutrophils # Man Lymphocytes # (Manual) Monocytes # (Manual) PT INR APTT D-Dimer Sodium Potassium Chloride Carbon Dioxide Creatinine 0.4 L Glucose 114 H POC Glucose Calcium 8.0 L Phosphorus Ferritin AST 116 H Lactate Dehydrogenase C-Reactive Protein Total Protein 5.9 L Albumin 3.0 L Lipase Vitamin B12 Valproic Acid Coronavirus (PCR) Positive A 04/23/21 04/23/21 04/24/21 09:24 22:38 07:56 WBC RBC Hgb Hct MCV MCH MCHC RDW Lymph % (Auto) [place] % (Auto) Lymph # (Auto) [place] # (Auto) Seg Neutrophils % Seg Neuts % (Manual) Lymphocytes % (Manual) Monocytes % (Manual) Seg Neutrophils # Seg Neutrophils # Man Lymphocytes # (Manual) Monocytes # (Manual) PT INR APTT D-Dimer Sodium Potassium 3.5 L Chloride Carbon Dioxide Creatinine 0.5 L Glucose 102 H POC Glucose 111 H Calcium 8.3 L Phosphorus 2.30 L Ferritin AST Lactate Dehydrogenase C-Reactive Protein Total Protein Albumin Lipase Vitamin B12 1039 H Valproic Acid Coronavirus (PCR) 04/24/21 04/24/21 04/24/21 07:56 07:56 21:37 WBC RBC Hgb Hct MCV 95 H MCH MCHC RDW Lymph % (Auto) [place] % (Auto) Lymph # (Auto) [place] # (Auto) Seg Neutrophils % Seg Neuts % (Manual) 80.0 H Lymphocytes % (Manual) 10.0 L Monocytes % (Manual) 10.0 H Seg Neutrophils # Seg Neutrophils # Man Lymphocytes # (Manual) 0.7 L Monocytes # (Manual) PT INR APTT D-Dimer Sodium Potassium Chloride Carbon Dioxide Creatinine 0.4 L Glucose POC Glucose 111 H Calcium Phosphorus Ferritin AST Lactate Dehydrogenase C-Reactive Protein Total Protein Albumin Lipase Vitamin B12 Valproic Acid Coronavirus (PCR) 04/25/21 04/25/21 04/25/21 06:24 06:24 23:13 WBC RBC Hgb Hct 46.6 H MCV MCH MCHC RDW Lymph % (Auto) [place] % (Auto) Lymph # (Auto) [place] # (Auto) Seg Neutrophils % Seg Neuts % (Manual) 83.0 H Lymphocytes % (Manual) 1.0 L Monocytes % (Manual) 9.0 H Seg Neutrophils # Seg Neutrophils # Man Lymphocytes # (Manual) 0.1 L Monocytes # (Manual) PT INR APTT D-Dimer Sodium 136 L 134 L Potassium 3.3 L Chloride Carbon Dioxide 21 L Creatinine 0.3 L 0.4 L Glucose 115 H POC Glucose Calcium 7.7 L Phosphorus Ferritin AST 104 H Lactate Dehydrogenase C-Reactive Protein Total Protein 6.1 L Albumin 2.6 L Lipase Vitamin B12 Valproic Acid Coronavirus (PCR) 04/26/21 04/27/21 04/27/21 06:29 06:31 06:31 WBC 17.6 H RBC Hgb Hct MCV MCH MCHC RDW Lymph % (Auto) [place] % (Auto) Lymph # (Auto) [place] # (Auto) Seg Neutrophils % Seg Neuts % (Manual) 87.0 H Lymphocytes % (Manual) 5.0 L Monocytes % (Manual) Seg Neutrophils # Seg Neutrophils # Man 15.3 H Lymphocytes # (Manual) 0.9 L Monocytes # (Manual) 0.9 H PT INR APTT D-Dimer Sodium Potassium 3.4 L Chloride Carbon Dioxide Creatinine 0.5 L 0.4 L Glucose 112 H 106 H POC Glucose Calcium 8.0 L Phosphorus Ferritin AST 114 H 110 H Lactate Dehydrogenase C-Reactive Protein Total Protein 6.2 L Albumin 2.9 L 2.6 L Lipase Vitamin B12 Valproic Acid Coronavirus (PCR) 04/28/21 04/28/21 04/29/21 08:03 08:03 04:00 WBC 19.8 H 14.0 H RBC Hgb Hct MCV 95 H MCH MCHC RDW Lymph % (Auto) [place] % (Auto) Lymph # (Auto) [place] # (Auto) Seg Neutrophils % Seg Neuts % (Manual) 94.0 H Lymphocytes % (Manual) 1.0 L Monocytes % (Manual) Seg Neutrophils # Seg Neutrophils # Man 18.6 H Lymphocytes # (Manual) 0.2 L Monocytes # (Manual) PT INR APTT D-Dimer Sodium Potassium Chloride Carbon Dioxide Creatinine 0.2 L Glucose 107 H POC Glucose Calcium 8.1 L Phosphorus Ferritin AST 87 H Lactate Dehydrogenase C-Reactive Protein Total Protein 5.1 L Albumin 2.4 L Lipase Vitamin B12 Valproic Acid Coronavirus (PCR) 04/29/21 04/30/21 04/30/21 04:00 06:20 06:20 WBC RBC Hgb Hct MCV MCH MCHC RDW Lymph % (Auto) [place] % (Auto) Lymph # (Auto) [place] # (Auto) Seg Neutrophils % Seg Neuts % (Manual) Lymphocytes % (Manual) Monocytes % (Manual) Seg Neutrophils # Seg Neutrophils # Man Lymphocytes # (Manual) Monocytes # (Manual) PT INR APTT D-Dimer 690.97 H Sodium 148 H Potassium 3.0 L Chloride 110.2 H Carbon Dioxide Creatinine 0.2 L Glucose 130 H POC Glucose Calcium Phosphorus Ferritin 930.1 H AST 63 H Lactate Dehydrogenase C-Reactive Protein Total Protein 5.6 L Albumin 2.4 L Lipase Vitamin B12 Valproic Acid Coronavirus (PCR) 04/30/21 04/30/21 04/30/21 06:20 08:01 08:41 WBC RBC Hgb Hct MCV MCH MCHC RDW Lymph % (Auto) [place] % (Auto) Lymph # (Auto) [place] # (Auto) Seg Neutrophils % Seg Neuts % (Manual) Lymphocytes % (Manual) Monocytes % (Manual) Seg Neutrophils # Seg Neutrophils # Man Lymphocytes # (Manual) Monocytes # (Manual) PT INR APTT D-Dimer Sodium 151 H Potassium 3.3 L Chloride 110.3 H Carbon Dioxide Creatinine 0.3 L Glucose 119 H POC Glucose 119 H Calcium Phosphorus Ferritin AST Lactate Dehydrogenase 423 H C-Reactive Protein 8.90 H Total Protein Albumin Lipase Vitamin B12 Valproic Acid Coronavirus (PCR) 04/30/21 05/01/21 05/01/21 11:14 07:29 07:29 WBC 21.4 H RBC Hgb Hct MCV MCH MCHC RDW Lymph % (Auto) [place] % (Auto) Lymph # (Auto) [place] # (Auto) Seg Neutrophils % Seg Neuts % (Manual) Lymphocytes % (Manual) Monocytes % (Manual) Seg Neutrophils # Seg Neutrophils # Man Lymphocytes # (Manual) Monocytes # (Manual) PT INR APTT D-Dimer Sodium 150 H Potassium 2.7 L* Chloride 111.2 H Carbon Dioxide Creatinine 0.3 L Glucose 162 H POC Glucose 113 H Calcium Phosphorus Ferritin AST Lactate Dehydrogenase C-Reactive Protein Total Protein Albumin Lipase Vitamin B12 Valproic Acid Coronavirus (PCR) 05/01/21 05/01/21 05/01/21 07:33 11:28 17:54 WBC RBC Hgb Hct MCV MCH MCHC RDW Lymph % (Auto) [place] % (Auto) Lymph # (Auto) [place] # (Auto) Seg Neutrophils % Seg Neuts % (Manual) Lymphocytes % (Manual) Monocytes % (Manual) Seg Neutrophils # Seg Neutrophils # Man Lymphocytes # (Manual) Monocytes # (Manual) PT INR APTT D-Dimer Sodium Potassium Chloride Carbon Dioxide Creatinine Glucose POC Glucose 147 H 152 H 165 H Calcium Phosphorus Ferritin AST Lactate Dehydrogenase C-Reactive Protein Total Protein Albumin Lipase Vitamin B12 Valproic Acid Coronavirus (PCR) 05/02/21 05/02/21 05/02/21 00:23 05:28 05:28 WBC 18.9 H RBC Hgb Hct MCV 95 H MCH MCHC 31 L RDW Lymph % (Auto) [place] % (Auto) Lymph # (Auto) [place] # (Auto) Seg Neutrophils % Seg Neuts % (Manual) Lymphocytes % (Manual) Monocytes % (Manual) Seg Neutrophils # Seg Neutrophils # Man Lymphocytes # (Manual) Monocytes # (Manual) PT INR APTT D-Dimer Sodium 151 H Potassium Chloride 111.4 H Carbon Dioxide Creatinine 0.3 L Glucose 132 H POC Glucose 160 H Calcium 8.3 L Phosphorus Ferritin AST Lactate Dehydrogenase C-Reactive Protein Total Protein Albumin Lipase Vitamin B12 Valproic Acid Coronavirus (PCR) 05/02/21 05/02/21 05/02/21 07:42 11:31 16:39 WBC RBC Hgb Hct MCV MCH MCHC RDW Lymph % (Auto) [place] % (Auto) Lymph # (Auto) [place] # (Auto) Seg Neutrophils % Seg Neuts % (Manual) Lymphocytes % (Manual) Monocytes % (Manual) Seg Neutrophils # Seg Neutrophils # Man Lymphocytes # (Manual) Monocytes # (Manual) PT INR APTT D-Dimer Sodium Potassium Chloride Carbon Dioxide Creatinine Glucose POC Glucose 170 H 131 H 140 H Calcium Phosphorus Ferritin AST Lactate Dehydrogenase C-Reactive Protein Total Protein Albumin Lipase Vitamin B12 Valproic Acid Coronavirus (PCR) 01/12/1405/03/21 05/03/21 22:42 06:11 09:20 WBC 16.2 H RBC 3.51 L Hgb 10.5 L Hct 33.1 L MCV MCH MCHC RDW 15.4 H Lymph % (Auto) [place] % (Auto) Lymph # (Auto) [place] # (Auto) Seg Neutrophils % Seg Neuts % (Manual) Lymphocytes % (Manual) Monocytes % (Manual) Seg Neutrophils # Seg Neutrophils # Man Lymphocytes # (Manual) Monocytes # (Manual) PT INR APTT D-Dimer Sodium Potassium Chloride Carbon Dioxide Creatinine Glucose POC Glucose 107 H 108 H Calcium Phosphorus Ferritin AST Lactate Dehydrogenase C-Reactive Protein Total Protein Albumin Lipase Vitamin B12 Valproic Acid Coronavirus (PCR) 05/03/21 05/03/21 05/03/21 09:20 11:01 17:33 WBC RBC Hgb Hct MCV MCH MCHC RDW Lymph % (Auto) [place] % (Auto) Lymph # (Auto) [place] # (Auto) Seg Neutrophils % Seg Neuts % (Manual) Lymphocytes % (Manual) Monocytes % (Manual) Seg Neutrophils # Seg Neutrophils # Man Lymphocytes # (Manual) Monocytes # (Manual) PT INR APTT D-Dimer Sodium 149 H Potassium 3.5 L Chloride 110.0 H Carbon Dioxide Creatinine 0.3 L Glucose 113 H POC Glucose 146 H 118 H Calcium 8.0 L Phosphorus Ferritin AST Lactate Dehydrogenase C-Reactive Protein Total Protein Albumin Lipase Vitamin B12 Valproic Acid Coronavirus (PCR) 05/04/21 05/04/21 05/04/21 05:51 13:28 13:28 WBC RBC Hgb Hct MCV MCH MCHC RDW Lymph % (Auto) [place] % (Auto) Lymph # (Auto) [place] # (Auto) Seg Neutrophils % Seg Neuts % (Manual) Lymphocytes % (Manual) Monocytes % (Manual) Seg Neutrophils # Seg Neutrophils # Man Lymphocytes # (Manual) Monocytes # (Manual) PT INR APTT D-Dimer Sodium Potassium Chloride Carbon Dioxide Creatinine Glucose POC Glucose 143 H Calcium Phosphorus Ferritin AST Lactate Dehydrogenase C-Reactive Protein 15.40 H Total Protein Albumin Lipase Vitamin B12 Valproic Acid 10.9 L Coronavirus (PCR) 05/04/21 05/04/21 05/05/21 17:30 23:53 11:23 WBC RBC Hgb Hct MCV MCH MCHC RDW Lymph % (Auto) [place] % (Auto) Lymph # (Auto) [place] # (Auto) Seg Neutrophils % Seg Neuts % (Manual) Lymphocytes % (Manual) Monocytes % (Manual) Seg Neutrophils # Seg Neutrophils # Man Lymphocytes # (Manual) Monocytes # (Manual) PT INR APTT D-Dimer Sodium Potassium Chloride Carbon Dioxide Creatinine Glucose POC Glucose 110 H 128 H 121 H Calcium Phosphorus Ferritin AST Lactate Dehydrogenase C-Reactive Protein Total Protein Albumin Lipase Vitamin B12 Valproic Acid Coronavirus (PCR) 05/05/21 05/05/21 05/06/21 16:26 21:24 07:02 WBC 11.7 H RBC Hgb Hct MCV 99 H MCH 33 H MCHC RDW 15.5 H Lymph % (Auto) [place] % (Auto) Lymph # (Auto) [place] # (Auto) Seg Neutrophils % Seg Neuts % (Manual) 82.0 H Lymphocytes % (Manual) 4.0 L Monocytes % (Manual) Seg Neutrophils # Seg Neutrophils # Man 9.6 H Lymphocytes # (Manual) 0.5 L Monocytes # (Manual) PT INR APTT D-Dimer Sodium Potassium Chloride Carbon Dioxide Creatinine Glucose POC Glucose 113 H 130 H Calcium Phosphorus Ferritin AST Lactate Dehydrogenase C-Reactive Protein Total Protein Albumin Lipase Vitamin B12 Valproic Acid Coronavirus (PCR) 05/07/21 05/07/21 05/07/21 05:00 07:28 21:34 WBC RBC Hgb Hct MCV MCH MCHC RDW Lymph % (Auto) [place] % (Auto) Lymph # (Auto) [place] # (Auto) Seg Neutrophils % Seg Neuts % (Manual) Lymphocytes % (Manual) Monocytes % (Manual) Seg Neutrophils # Seg Neutrophils # Man Lymphocytes # (Manual) Monocytes # (Manual) PT 16.0 H INR 1.16 H APTT 43.8 H D-Dimer Sodium Potassium Chloride Carbon Dioxide Creatinine Glucose POC Glucose 112 H 123 H Calcium Phosphorus Ferritin AST Lactate Dehydrogenase C-Reactive Protein Total Protein Albumin Lipase Vitamin B12 Valproic Acid Coronavirus (PCR) 05/08/21 05/08/21 05/08/21 08:11 12:04 16:37 WBC RBC Hgb Hct MCV MCH MCHC RDW Lymph % (Auto) [place] % (Auto) Lymph # (Auto) [place] # (Auto) Seg Neutrophils % Seg Neuts % (Manual) Lymphocytes % (Manual) Monocytes % (Manual) Seg Neutrophils # Seg Neutrophils # Man Lymphocytes # (Manual) Monocytes # (Manual) PT INR APTT D-Dimer Sodium Potassium Chloride Carbon Dioxide Creatinine Glucose POC Glucose 158 H 117 H 118 H Calcium Phosphorus Ferritin AST Lactate Dehydrogenase C-Reactive Protein Total Protein Albumin Lipase Vitamin B12 Valproic Acid Coronavirus (PCR) 05/09/21 05/09/21 05/09/21 04:56 12:04 17:14 WBC RBC Hgb Hct MCV MCH MCHC RDW Lymph % (Auto) [place] % (Auto) Lymph # (Auto) [place] # (Auto) Seg Neutrophils % Seg Neuts % (Manual) Lymphocytes % (Manual) Monocytes % (Manual) Seg Neutrophils # Seg Neutrophils # Man Lymphocytes # (Manual) Monocytes # (Manual) PT INR APTT D-Dimer Sodium Potassium Chloride Carbon Dioxide Creatinine Glucose POC Glucose 113 H 107 H 163 H Calcium Phosphorus Ferritin AST Lactate Dehydrogenase C-Reactive Protein Total Protein Albumin Lipase Vitamin B12 Valproic Acid Coronavirus (PCR) 05/09/21 05/09/21 21:02 Unknown WBC RBC Hgb Hct MCV MCH MCHC RDW Lymph % (Auto) [place] % (Auto) Lymph # (Auto) [place] # (Auto) Seg Neutrophils % Seg Neuts % (Manual) Lymphocytes % (Manual) Monocytes % (Manual) Seg Neutrophils # Seg Neutrophils # Man Lymphocytes # (Manual) Monocytes # (Manual) PT INR APTT D-Dimer Sodium Potassium Chloride Carbon Dioxide Creatinine Glucose POC Glucose 139 H Calcium Phosphorus Ferritin AST Lactate Dehydrogenase C-Reactive Protein Total Protein Albumin Lipase Vitamin B12 Valproic Acid Coronavirus (PCR) Positive A
[2021-05-10] MEDS ORDERED: SODIUM CHLORIDE 0.9% 250ML 250 ML IV ONE (13:33)
[2021-05-10] MEDS ORDERED: SODIUM CHLORIDE 0.9% 1000 ML IV SOLN IV ONE (21:35)
[2021-05-10] MEDS ORDERED: SODIUM CHLORIDE 0.9% 1000 ML 1,000 ML IV SCH (21:45)
[2021-05-10] MEDS: VALPROIC ACID 250 MG/5 ML ORAL LIQD PO SCH (22:40)
--- NOTE | 2021-05-11 01:26 | Event Note ---
Date: 05/11/21 Patient is lethargic and hypotensive. BP is 55/25. Pulse 103. Patient is given 1 L of fluid bolus and started on normal saline at the rate of 150 cc/h. BP is not improving. Going to transfer the patient to the ICU for Levophed drip. We consulted critical care evaluation. I tried to call the family but there is no person to notify. I called [phone] but the phone number is not working. Try to contact [facility] phone number [phone] but unable to contact, left voice messages and left hospitalist phone #[phone]. Patient has respiratory distress. Patient has no gag reflex. O2 sat is dropping. case discussed with critical care. Patient was intubated by the ER physician Dr. lloyd.
[2021-05-11] MEDS: NORepinephrine/NS 8 MG-250 ML 8 MG/250 ML INFUS..BTL IV SCH ×5 (01:41→19:20)
[2021-05-11] MEDS ORDERED: LORazepam 2 MG/ML VIAL IV PRN (01:43)
[2021-05-11] MEDS ORDERED: LORazepam 2 MG/ML VIAL ONE (01:45)
--- NOTE | 2021-05-11 02:40 | Procedure Note ---
Date of procedure: 05/11/21 - Central Line Placement Right Femoral Consent Obtained: emergent situation Time Out Performed: Yes Patient Placed on Monitor/Pulse Ox: Yes MD Prep: mask, gown, gloves Central Line Prep: Chlorhexidine scrub Local Anesthesia Used: other anesthetic Ultrasound Used for Placement: No Central Line Lumen Inserted: triple Reason for Insertion: Emergency Venous Access Bloods Obtained for Lab: Yes Central Line Position: good blood return, sutured in place with nyl Dressing Applied: Tegaderm Patient Tolerated Procedure: well Complications: none - Intubation Time Out Performed: Yes Sedative: Etomidate Mg Given: 20 Paralytic: Succinylcholine Mg Given: 100 Laryngoscope: Harinder Size: 4 Assist Device Used: fiberoptic device ET Tube Size: 7.5 Tube Secured Depth (cm): 22 Tube Secured Location: teeth Tube Placement Confirmation: visualized tube passing t, equal breath sounds bilat, no breath sounds over epi, confirmation by capnometr Patient Tolerated Procedure: well, no complications Intubation Complications: none Additional Comments: I received request from Dr Faust hospitalist to intubate and place central line due to patient deterioration in mental status on high flow oxygen and acute hypotension.
[2021-05-11 02:49] LABS: Mean Corpuscular HGB Conc 29 % (32-34); Mean Corpuscular Volume 103 fl (84-94); Platelet Count 154 K/mm3 (140-440); Red Blood Count 3.22 M/mm3 (3.65-5.03); Red Cell Distribution Width 16.6 % (13.2-15.2)
[2021-05-11 02:58] LABS: Basophils # (Auto) 0.1 K/mm3 (0.0-0.1); Basophils % (Auto) 0.5 % (0.0-1.8); Hematocrit 33.3 % (35.5-45.6); Hemoglobin 9.6 gm/dl (11.8-15.2); Lymphocytes # (Auto) 0.6 K/mm3 (1.2-5.4); Lymphocytes % (Auto) 4.9 % (13.4-35.0); Monocytes # (Auto) 1.3 K/mm3 (0.0-0.8); Monocytes % (Auto) 10.6 % (0.0-7.3)
[2021-05-11 03:04] LABS: BUN/Creatinine Ratio 34; Blood Urea Nitrogen 41 mg/dL (9-20); Calcium 8.2 mg/dL (8.4-10.2); Hemolysis Index 4
[2021-05-11] MEDS ORDERED: DEXTROSE 50% IN WATER (25GM) 50 ML SYRINGE IV STA (03:32)
[2021-05-11] MEDS ORDERED: INSULIN REGULAR, HUMAN 100 UNITS/1 ML IV STA (03:33)
[2021-05-11] MEDS ORDERED: CALCIUM GLUCONATE 1,000 MG in SODIUM CHLORIDE 0.9% 100 ML IV STA (03:34)
[2021-05-11] MEDS ORDERED: SODIUM BICARB 8.4% 50 MEQ/50 ML SYRINGE IV STA (03:34)
[2021-05-11] MEDS ORDERED: SODIUM CHLORIDE 0.9% 1000 ML 1,000 ML IV SCH (03:43)
--- NOTE | 2021-05-11 03:58 | XRay Report ---
CHEST 1 VIEW 05/11/2021 2:49 AM INDICATION / CLINICAL INFORMATION: ETT placement confirmation. COMPARISON: 04/27/21 FINDINGS: SUPPORT DEVICES: Endotracheal tube has been placed with the tip 3.8 cm above the don. HEART / MEDIASTINUM: No significant abnormality. LUNGS / PLEURA: Interval increase in bilateral pulmonary opacities with slight volume loss of the lef t hemithorax and near complete opacification of the left lung. No pneumothorax. ADDITIONAL FINDINGS: No significant additional findings. IMPRESSION: 1. Endotracheal tube in expected position. 2. Near complete left lung opacification and volume loss. Signer Name: Gooy Ontiveros MD Signed: 05/11/2021 3:54 AM Workstation Name: [id number]
[2021-05-11] MEDS: FREE WATER PO SCH ×4 (05:55→23:42)
--- NOTE | 2021-05-11 09:02 | Progress Note ---
Assessment and Plan 66 y/o male with altered mental status found to be COVID positive, now with worsening respiratory failure. 05/11/21: WIll bronch this am with therapeutic scope to see if this removes plugging and improves oxygenation. Called the guardianship as they left an emergency contact. Explained the emergent need for bronch and they understand. Also discussed the need for code status as well as hospice given his poor overall clinical health and outcome with COVID and now respiratory failure. Per the emergency contact, she is going to kick it up to her superiors. For now, continue aggressive measures. 05/10/21: Contniue CPT. Called by RT yesterday for changes in breathing pattern but still with good sats. Patient is not a candidate for bipap so next step would be intubation. Asked RT to pass this on to night time staff. Still aw aiting to hear from guardianship about hospice as all of their patient's are full code and they will likely not change his code status. Poor prognosis. 05/09/21: Given current clinical state, no improvement in pulmonary status, increased weakness with continued risk for aspiration in the face of COVID 19 pneumonia, I agree that hospice would be a reasonable option for this patient. Not sure what company could take current oxygen demand so if this is pursued it would likely need to be inpatient with plans of comfort and deescalation. Continue CPT and mucomyst nebs. Guarded to poor prognosis. 05/08/21: Continue CPT. Will try mucomyst nebs to see if this helps with sputum expectoration given weak cough. Guarded prognosis. Prone if able. 05/07/21: Continue CPT. Will speak with pharmacy but may need hypertonic saline neb to help induce cough to help expectorate mucous. Ideally should be bronched, but would need to either be intubated or have LMA and doubt GI will allow given COVID positive state. Guarded to poor prognosis. 05/06/21: Please continue CPT multiple times daily. Please document this. Suggest proning patient to help with oxygenation if possible. Guarded prog nosis. 05/05/21: Increased CPT to 3-6x daily. Should be done with scheduled albuterol therapy. Please wake patient up for scheduled meds as we are trying to remove mucous and improve oxygenation. Will discuss with RT to pass on to night shit. Prone as much as possible. Daily net negative fluid balance 1. Mucous plug on CTA. Needs CPT but more than daily. Please increase to at least TID 2. Prone as much as possible and sleep prone at night 3. Has already finished steroids 4. Guarded prognosis. Subjective Date of service: 05/11/21 Principal diagnosis: Encephalopathy,COVID-19 Interval history: Patient intubated last night secondary to worsening respiratory status and hypotension. CXR shows almost complete white out of left lung. Central line placed by ED. Objective Vital Signs - 12hr 05/10/21 05/10/21 05/10/21 21:14 22:00 22:41 Temperature Pulse Rate 108 H Pulse Rate [ From Monitor] Pulse Rate [ 108 H Radial] Respiratory 12 Rate Blood Pressure 52/22 Blood Pressure [Right] O2 Sat by Pulse 100 94 Oximetry 05/10/21 05/11/21 05/11/21 22:46 00:00 01:32 Temperature Pulse Rate 104 H 96 H 100 H Pulse Rate [ From Monitor] Pulse Rate [ Radial] Respiratory 25 H Rate Blood Pressure Blood Pressure 56/26 56/26 [Right] O2 Sat by Pulse 96 89 Oximetry 05/11/21 05/11/21 05/11/21 01:40 01:50 02:00 Temperature 97.8 F Pulse Rate 98 H 97 H 106 H Pulse Rate [ From Monitor] Pulse Rate [ Radial] Respiratory 16 19 14 Rate Blood Pressure 49/23 73/43 83/40 Blood Pressure [Right] O2 Sat by Pulse 96 99 98 Oximetry 05/11/21 05/11/21 05/11/21 02:10 02:20 02:30 Temperature Pulse Rate 104 H 118 H 116 H Pulse Rate [ From Monitor] Pulse Rate [ Radial] Respiratory 19 16 18 Rate Blood Pressure 83/40 78/45 91/50 Blood Pressure [Right] O2 Sat by Pulse 97 100 98 Oximetry 05/11/21 05/11/21 05/11/21 02:40 02:59 03:00 Temperature Pulse Rate 114 H 48 L 48 L Pulse Rate [ From Monitor] Pulse Rate [ Radial] Respiratory 16 17 Rate Blood Pressure 93/52 96/53 96/53 Blood Pressure [Right] O2 Sat by Pulse 100 100 100 Oximetry 05/11/21 05/11/21 05/11/21 03:15 03:17 03:30 Temperature Pulse Rate 105 H 107 H 103 H Pulse Rate [ From Monitor] Pulse Rate [ Radial] Respiratory 21 24 Rate Blood Pressure 93/50 89/46 Blood Pressure [Right] O2 Sat by Pulse 100 97 Oximetry 05/11/21 05/11/21 05/11/21 03:37 03:45 04:00 Temperature 97 F L Pulse Rate 103 H 102 H Pulse Rate [ From Monitor] Pulse Rate [ Radial] Respiratory 24 25 H Rate Blood Pressure 86/49 89/49 Blood Pressure [Right] O2 Sat by Pulse 92 91 Oximetry 05/11/21 05/11/21 05/11/21 04:02 04:15 04:30 Temperature Pulse Rate 101 H 102 H Pulse Rate [ From Monitor] Pulse Rate [ Radial] Respiratory 25 H 16 Rate Blood Pressure 93/52 95/46 Blood Pressure [Right] O2 Sat by Pulse 100 91 92 Oximetry 05/11/21 05/11/21 05/11/21 04:45 05:00 05:15 Temperature Pulse Rate 96 H 95 H 107 H Pulse Rate [ From Monitor] Pulse Rate [ Radial] Respiratory 21 16 24 Rate Blood Pressure 102/59 106/59 76/39 Blood Pressure [Right] O2 Sat by Pulse 93 94 94 Oximetry 05/11/21 05/11/21 05/11/21 05:30 05:45 06:00 Temperature Pulse Rate 97 H 108 H 104 H Pulse Rate [ From Monitor] Pulse Rate [ Radial] Respiratory 24 14 17 Rate Blood Pressure 100/65 104/67 107/64 Blood Pressure [Right] O2 Sat by Pulse 97 97 98 Oximetry 05/11/21 05/11/21 05/11/21 06:15 06:30 06:46 Temperature Pulse Rate 98 H 101 H Pulse Rate [ From Monitor] Pulse Rate [ Radial] Respiratory 22 24 21 Rate Blood Pressure 111/67 108/66 115/66 Blood Pressure [Right] O2 Sat by Pulse 98 98 95 Oximetry 05/11/21 05/11/21 05/11/21 07:00 07:15 07:30 Temperature Pulse Rate 96 H 100 H 106 H Pulse Rate [ From Monitor] Pulse Rate [ Radial] Respiratory 22 20 20 Rate Blood Pressure 113/58 118/59 116/61 Blood Pressure [Right] O2 Sat by Pulse 96 96 95 Oximetry 05/11/21 05/11/21 05/11/21 07:32 07:45 08:00 Temperature 98.0 F Pulse Rate 100 H 105 H Pulse Rate [ 105 H From Monitor] Pulse Rate [ Radial] Respiratory 23 28 H Rate Blood Pressure 120/58 108/57 Blood Pressure [Right] O2 Sat by Pulse 94 98 Oximetry 05/11/21 08:04 Temperature Pulse Rate 115 H Pulse Rate [ From Monitor] Pulse Rate [ Radial] Respiratory Rate Blood Pressure 109/60 Blood Pressure [Right] O2 Sat by Pulse 99 Oximetry Constitutional: other (on nrb mask sat 100%, opens eyes to tactile stimuli, doesnt follow command ) ENT: oropharynx moist, oropharynx dry Ascultation: Bilateral: rhonchi (sl better) Cardiovascular: regular rate and rhythm, PVC's noted Gastrointestinal: normoactive bowel sounds Integumentary: normal CBC and BMP: 05/11/21 02:30 05/11/21 02:30 ABG, PT/INR, D-dimer: ABG ABG pH 7.083 (7.320-7.450) L 05/11/21 03:20 POC ABG pCO2 129.5 mmHg (32.0-48.0) H 05/11/21 03:20 POC ABG pO2 139.1 mmHg (83-108) H 05/11/21 03:20 POC ABG HCO3 37.8 05/11/21 03:20 ABG O2 Saturation 98.8 (0-100) 05/11/21 03:20 PT/INR, D-dimer PT 16.0 Sec. (12.2-14.9) H 05/07/21 07:28 INR 1.16 (0.87-1.13) H 05/07/21 07:28 D-Dimer 690.97 ng/mlDDU (0-234) H 04/30/21 06:20 Abnormal lab findings: Abnormal Labs 04/21/21 04/21/21 04/22/21 16:08 16:08 00:20 WBC RBC Hgb Hct MCV 96 H MCH MCHC RDW Lymph % (Auto) 8.5 L [place] % (Auto) 15.8 H Lymph # (Auto) 0.9 L [place] # (Auto) 1.7 H Seg Neutrophils % 75.6 H Seg Neuts % (Manual) Lymphocytes % (Manual) Monocytes % (Manual) Seg Neutrophils # 8.0 H Seg Neutrophils # Man Lymphocytes # (Manual) Monocytes # (Manual) PT INR APTT D-Dimer 621.94 H ABG pH POC ABG pCO2 POC ABG pO2 ABG Hemoglobin ABG Oxyhemoglobin ABG Sodium ABG Potassium ABG Chloride ABG Glucose Carboxyhemoglobin Sodium Potassium Chloride Carbon Dioxide BUN Creatinine 0.6 L Glucose 107 H POC Glucose Calcium 8.3 L Phosphorus Ferritin AST 136 H Lactate Dehydrogenase C-Reactive Protein Total Protein 6.2 L Albumin 3.0 L Lipase 7 L Vitamin B12 Arterial Blood Glucose Valproic Acid Coronavirus (PCR) 04/22/21 04/22/21 04/22/21 00:20 00:20 06:51 WBC RBC Hgb Hct MCV 95 H MCH MCHC RDW Lymph % (Auto) [place] % (Auto) Lymph # (Auto) [place] # (Auto) Seg Neutrophils % Seg Neuts % (Manual) 91.0 H Lymphocytes % (Manual) 1.0 L Monocytes % (Manual) Seg Neutrophils # Seg Neutrophils # Man Lymphocytes # (Manual) 0.1 L Monocytes # (Manual) PT INR APTT D-Dimer ABG pH POC ABG pCO2 POC ABG pO2 ABG Hemoglobin ABG Oxyhemoglobin ABG Sodium ABG Potassium ABG Chloride ABG Glucose Carboxyhemoglobin Sodium Potassium Chloride Carbon Dioxide BUN Creatinine Glucose POC Glucose Calcium Phosphorus Ferritin 427.3 H AST Lactate Dehydrogenase 379 H C-Reactive Protein 9.20 H Total Protein Albumin Lipase Vitamin B12 Arterial Blood Glucose Valproic Acid Coronavirus (PCR) 04/22/21 04/22/21 04/23/21 06:51 Unknown 09:24 WBC RBC Hgb Hct MCV 96 H MCH MCHC RDW Lymph % (Auto) 5.9 L [place] % (Auto) 9.3 H Lymph # (Auto) 0.5 L [place] # (Auto) Seg Neutrophils % 84.8 H Seg Neuts % (Manual) Lymphocytes % (Manual) Monocytes % (Manual) Seg Neutrophils # Seg Neutrophils # Man Lymphocytes # (Manual) Monocytes # (Manual) PT INR APTT D-Dimer ABG pH POC ABG pCO2 POC ABG pO2 ABG Hemoglobin ABG Oxyhemoglobin ABG Sodium ABG Potassium ABG Chloride ABG Glucose Carboxyhemoglobin Sodium Potassium Chloride Carbon Dioxide BUN Creatinine 0.4 L Glucose 114 H POC Glucose Calcium 8.0 L Phosphorus Ferritin AST 116 H Lactate Dehydrogenase C-Reactive Protein Total Protein 5.9 L Albumin 3.0 L Lipase Vitamin B12 Arterial Blood Glucose Valproic Acid Coronavirus (PCR) Positive A 12/30/21 12/30/21 12/31/21 09:24 22:38 07:56 WBC RBC Hgb Hct MCV MCH MCHC RDW Lymph % (Auto) [place] % (Auto) Lymph # (Auto) [place] # (Auto) Seg Neutrophils % Seg Neuts % (Manual) Lymphocytes % (Manual) Monocytes % (Manual) Seg Neutrophils # Seg Neutrophils # Man Lymphocytes # (Manual) Monocytes # (Manual) PT INR APTT D-Dimer ABG pH POC ABG pCO2 POC ABG pO2 ABG Hemoglobin ABG Oxyhemoglobin ABG Sodium ABG Potassium ABG Chloride ABG Glucose Carboxyhemoglobin Sodium Potassium 3.5 L Chloride Carbon Dioxide BUN Creatinine 0.5 L Glucose 102 H POC Glucose 111 H Calcium 8.3 L Phosphorus 2.30 L Ferritin AST Lactate Dehydrogenase C-Reactive Protein Total Protein Albumin Lipase Vitamin B12 1039 H Arterial Blood Glucose Valproic Acid Coronavirus (PCR) 04/24/21 04/24/21 04/24/21 07:56 07:56 21:37 WBC RBC Hgb Hct MCV 95 H MCH MCHC RDW Lymph % (Auto) [place] % (Auto) Lymph # (Auto) [place] # (Auto) Seg Neutrophils % Seg Neuts % (Manual) 80.0 H Lymphocytes % (Manual) 10.0 L Monocytes % (Manual) 10.0 H Seg Neutrophils # Seg Neutrophils # Man Lymphocytes # (Manual) 0.7 L Monocytes # (Manual) PT INR APTT D-Dimer ABG pH POC ABG pCO2 POC ABG pO2 ABG Hemoglobin ABG Oxyhemoglobin ABG Sodium ABG Potassium ABG Chloride ABG Glucose Carboxyhemoglobin Sodium Potassium Chloride Carbon Dioxide BUN Creatinine 0.4 L Glucose POC Glucose 111 H Calcium Phosphorus Ferritin AST Lactate Dehydrogenase C-Reactive Protein Total Protein Albumin Lipase Vitamin B12 Arterial Blood Glucose Valproic Acid Coronavirus (PCR) 04/25/21 04/25/21 04/25/21 06:24 06:24 23:13 WBC RBC Hgb Hct 46.6 H MCV MCH MCHC RDW Lymph % (Auto) [place] % (Auto) Lymph # (Auto) [place] # (Auto) Seg Neutrophils % Seg Neuts % (Manual) 83.0 H Lymphocytes % (Manual) 1.0 L Monocytes % (Manual) 9.0 H Seg Neutrophils # Seg Neutrophils # Man Lymphocytes # (Manual) 0.1 L Monocytes # (Manual) PT INR APTT D-Dimer ABG pH POC ABG pCO2 POC ABG pO2 ABG Hemoglobin ABG Oxyhemoglobin ABG Sodium ABG Potassium ABG Chloride ABG Glucose Carboxyhemoglobin Sodium 136 L 134 L Potassium 3.3 L Chloride Carbon Dioxide 21 L BUN Creatinine 0.3 L 0.4 L Glucose 115 H POC Glucose Calcium 7.7 L Phosphorus Ferritin AST 104 H Lactate Dehydrogenase C-Reactive Protein Total Protein 6.1 L Albumin 2.6 L Lipase Vitamin B12 Arterial Blood Glucose Valproic Acid Coronavirus (PCR) 04/26/21 04/27/21 04/27/21 06:29 06:31 06:31 WBC 17.6 H RBC Hgb Hct MCV MCH MCHC RDW Lymph % (Auto) [place] % (Auto) Lymph # (Auto) [place] # (Auto) Seg Neutrophils % Seg Neuts % (Manual) 87.0 H Lymphocytes % (Manual) 5.0 L Monocytes % (Manual) Seg Neutrophils # Seg Neutrophils # Man 15.3 H Lymphocytes # (Manual) 0.9 L Monocytes # (Manual) 0.9 H PT INR APTT D-Dimer ABG pH POC ABG pCO2 POC ABG pO2 ABG Hemoglobin ABG Oxyhemoglobin ABG Sodium ABG Potassium ABG Chloride ABG Glucose Carboxyhemoglobin Sodium Potassium 3.4 L Chloride Carbon Dioxide BUN Creatinine 0.5 L 0.4 L Glucose 112 H 106 H POC Glucose Calcium 8.0 L Phosphorus Ferritin AST 114 H 110 H Lactate Dehydrogenase C-Reactive Protein Total Protein 6.2 L Albumin 2.9 L 2.6 L Lipase Vitamin B12 Arterial Blood Glucose Valproic Acid Coronavirus (PCR) 04/28/21 04/28/21 04/29/21 08:03 08:03 04:00 WBC 19.8 H 14.0 H RBC Hgb Hct MCV 95 H MCH MCHC RDW Lymph % (Auto) [place] % (Auto) Lymph # (Auto) [place] # (Auto) Seg Neutrophils % Seg Neuts % (Manual) 94.0 H Lymphocytes % (Manual) 1.0 L Monocytes % (Manual) Seg Neutrophils # Seg Neutrophils # Man 18.6 H Lymphocytes # (Manual) 0.2 L Monocytes # (Manual) PT INR APTT D-Dimer ABG pH POC ABG pCO2 POC ABG pO2 ABG Hemoglobin ABG Oxyhemoglobin ABG Sodium ABG Potassium ABG Chloride ABG Glucose Carboxyhemoglobin Sodium Potassium Chloride Carbon Dioxide BUN Creatinine 0.2 L Glucose 107 H POC Glucose Calcium 8.1 L Phosphorus Ferritin AST 87 H Lactate Dehydrogenase C-Reactive Protein Total Protein 5.1 L Albumin 2.4 L Lipase Vitamin B12 Arterial Blood Glucose Valproic Acid Coronavirus (PCR) 04/29/21 04/30/21 04/30/21 04:00 06:20 06:20 WBC RBC Hgb Hct MCV MCH MCHC RDW Lymph % (Auto) [place] % (Auto) Lymph # (Auto) [place] # (Auto) Seg Neutrophils % Seg Neuts % (Manual) Lymphocytes % (Manual) Monocytes % (Manual) Seg Neutrophils # Seg Neutrophils # Man Lymphocytes # (Manual) Monocytes # (Manual) PT INR APTT D-Dimer 690.97 H ABG pH POC ABG pCO2 POC ABG pO2 ABG Hemoglobin ABG Oxyhemoglobin ABG Sodium ABG Potassium ABG Chloride ABG Glucose Carboxyhemoglobin Sodium 148 H Potassium 3.0 L Chloride 110.2 H Carbon Dioxide BUN Creatinine 0.2 L Glucose 130 H POC Glucose Calcium Phosphorus Ferritin 930.1 H AST 63 H Lactate Dehydrogenase C-Reactive Protein Total Protein 5.6 L Albumin 2.4 L Lipase Vitamin B12 Arterial Blood Glucose Valproic Acid Coronavirus (PCR) 04/30/21 04/30/21 04/30/21 06:20 08:01 08:41 WBC RBC Hgb Hct MCV MCH MCHC RDW Lymph % (Auto) [place] % (Auto) Lymph # (Auto) [place] # (Auto) Seg Neutrophils % Seg Neuts % (Manual) Lymphocytes % (Manual) Monocytes % (Manual) Seg Neutrophils # Seg Neutrophils # Man Lymphocytes # (Manual) Monocytes # (Manual) PT INR APTT D-Dimer ABG pH POC ABG pCO2 POC ABG pO2 ABG Hemoglobin ABG Oxyhemoglobin ABG Sodium ABG Potassium ABG Chloride ABG Glucose Carboxyhemoglobin Sodium 151 H Potassium 3.3 L Chloride 110.3 H Carbon Dioxide BUN Creatinine 0.3 L Glucose 119 H POC Glucose 119 H Calcium Phosphorus Ferritin AST Lactate Dehydrogenase 423 H C-Reactive Protein 8.90 H Total Protein Albumin Lipase Vitamin B12 Arterial Blood Glucose Valproic Acid Coronavirus (PCR) 04/30/21 05/01/21 05/01/21 11:14 07:29 07:29 WBC 21.4 H RBC Hgb Hct MCV MCH MCHC RDW Lymph % (Auto) [place] % (Auto) Lymph # (Auto) [place] # (Auto) Seg Neutrophils % Seg Neuts % (Manual) Lymphocytes % (Manual) Monocytes % (Manual) Seg Neutrophils # Seg Neutrophils # Man Lymphocytes # (Manual) Monocytes # (Manual) PT INR APTT D-Dimer ABG pH POC ABG pCO2 POC ABG pO2 ABG Hemoglobin ABG Oxyhemoglobin ABG Sodium ABG Potassium ABG Chloride ABG Glucose Carboxyhemoglobin Sodium 150 H Potassium 2.7 L* Chloride 111.2 H Carbon Dioxide BUN Creatinine 0.3 L Glucose 162 H POC Glucose 113 H Calcium Phosphorus Ferritin AST Lactate Dehydrogenase C-Reactive Protein Total Protein Albumin Lipase Vitamin B12 Arterial Blood Glucose Valproic Acid Coronavirus (PCR) 05/01/21 05/01/21 05/01/21 07:33 11:28 17:54 WBC RBC Hgb Hct MCV MCH MCHC RDW Lymph % (Auto) [place] % (Auto) Lymph # (Auto) [place] # (Auto) Seg Neutrophils % Seg Neuts % (Manual) Lymphocytes % (Manual) Monocytes % (Manual) Seg Neutrophils # Seg Neutrophils # Man Lymphocytes # (Manual) Monocytes # (Manual) PT INR APTT D-Dimer ABG pH POC ABG pCO2 POC ABG pO2 ABG Hemoglobin ABG Oxyhemoglobin ABG Sodium ABG Potassium ABG Chloride ABG Glucose Carboxyhemoglobin Sodium Potassium Chloride Carbon Dioxide BUN Creatinine Glucose POC Glucose 147 H 152 H 165 H Calcium Phosphorus Ferritin AST Lactate Dehydrogenase C-Reactive Protein Total Protein Albumin Lipase Vitamin B12 Arterial Blood Glucose Valproic Acid Coronavirus (PCR) 05/02/21 05/02/21 05/02/21 00:23 05:28 05:28 WBC 18.9 H RBC Hgb Hct MCV 95 H MCH MCHC 31 L RDW Lymph % (Auto) [place] % (Auto) Lymph # (Auto) [place] # (Auto) Seg Neutrophils % Seg Neuts % (Manual) Lymphocytes % (Manual) Monocytes % (Manual) Seg Neutrophils # Seg Neutrophils # Man Lymphocytes # (Manual) Monocytes # (Manual) PT INR APTT D-Dimer ABG pH POC ABG pCO2 POC ABG pO2 ABG Hemoglobin ABG Oxyhemoglobin ABG Sodium ABG Potassium ABG Chloride ABG Glucose Carboxyhemoglobin Sodium 151 H Potassium Chloride 111.4 H Carbon Dioxide BUN Creatinine 0.3 L Glucose 132 H POC Glucose 160 H Calcium 8.3 L Phosphorus Ferritin AST Lactate Dehydrogenase C-Reactive Protein Total Protein Albumin Lipase Vitamin B12 Arterial Blood Glucose Valproic Acid Coronavirus (PCR) 05/02/21 05/02/21 05/02/21 07:42 11:31 16:39 WBC RBC Hgb Hct MCV MCH MCHC RDW Lymph % (Auto) [place] % (Auto) Lymph # (Auto) [place] # (Auto) Seg Neutrophils % Seg Neuts % (Manual) Lymphocytes % (Manual) Monocytes % (Manual) Seg Neutrophils # Seg Neutrophils # Man Lymphocytes # (Manual) Monocytes # (Manual) PT INR APTT D-Dimer ABG pH POC ABG pCO2 POC ABG pO2 ABG Hemoglobin ABG Oxyhemoglobin ABG Sodium ABG Potassium ABG Chloride ABG Glucose Carboxyhemoglobin Sodium Potassium Chloride Carbon Dioxide BUN Creatinine Glucose POC Glucose 170 H 131 H 140 H Calcium Phosphorus Ferritin AST Lactate Dehydrogenase C-Reactive Protein Total Protein Albumin Lipase Vitamin B12 Arterial Blood Glucose Valproic Acid Coronavirus (PCR) 05/02/21 05/03/21 05/03/21 22:42 06:11 09:20 WBC 16.2 H RBC 3.51 L Hgb 10.5 L Hct 33.1 L MCV MCH MCHC RDW 15.4 H Lymph % (Auto) [place] % (Auto) Lymph # (Auto) [place] # (Auto) Seg Neutrophils % Seg Neuts % (Manual) Lymphocytes % (Manual) Monocytes % (Manual) Seg Neutrophils # Seg Neutrophils # Man Lymphocytes # (Manual) Monocytes # (Manual) PT INR APTT D-Dimer ABG pH POC ABG pCO2 POC ABG pO2 ABG Hemoglobin ABG Oxyhemoglobin ABG Sodium ABG Potassium ABG Chloride ABG Glucose Carboxyhemoglobin Sodium Potassium Chloride Carbon Dioxide BUN Creatinine Glucose POC Glucose 107 H 108 H Calcium Phosphorus Ferritin AST Lactate Dehydrogenase C-Reactive Protein Total Protein Albumin Lipase Vitamin B12 Arterial Blood Glucose Valproic Acid Coronavirus (PCR) 05/03/21 05/03/21 05/03/21 09:20 11:01 17:33 WBC RBC Hgb Hct MCV MCH MCHC RDW Lymph % (Auto) [place] % (Auto) Lymph # (Auto) [place] # (Auto) Seg Neutrophils % Seg Neuts % (Manual) Lymphocytes % (Manual) Monocytes % (Manual) Seg Neutrophils # Seg Neutrophils # Man Lymphocytes # (Manual) Monocytes # (Manual) PT INR APTT D-Dimer ABG pH POC ABG pCO2 POC ABG pO2 ABG Hemoglobin ABG Oxyhemoglobin ABG Sodium ABG Potassium ABG Chloride ABG Glucose Carboxyhemoglobin Sodium 149 H Potassium 3.5 L Chloride 110.0 H Carbon Dioxide BUN Creatinine 0.3 L Glucose 113 H POC Glucose 146 H 118 H Calcium 8.0 L Phosphorus Ferritin AST Lactate Dehydrogenase C-Reactive Protein Total Protein Albumin Lipase Vitamin B12 Arterial Blood Glucose Valproic Acid Coronavirus (PCR) 05/04/21 05/04/21 05/04/21 05:51 13:28 13:28 WBC RBC Hgb Hct MCV MCH MCHC RDW Lymph % (Auto) [place] % (Auto) Lymph # (Auto) [place] # (Auto) Seg Neutrophils % Seg Neuts % (Manual) Lymphocytes % (Manual) Monocytes % (Manual) Seg Neutrophils # Seg Neutrophils # Man Lymphocytes # (Manual) Monocytes # (Manual) PT INR APTT D-Dimer ABG pH POC ABG pCO2 POC ABG pO2 ABG Hemoglobin ABG Oxyhemoglobin ABG Sodium ABG Potassium ABG Chloride ABG Glucose Carboxyhemoglobin Sodium Potassium Chloride Carbon Dioxide BUN Creatinine Glucose POC Glucose 143 H Calcium Phosphorus Ferritin AST Lactate Dehydrogenase C-Reactive Protein 15.40 H Total Protein Albumin Lipase Vitamin B12 Arterial Blood Glucose Valproic Acid 10.9 L Coronavirus (PCR) 05/04/21 05/04/21 05/05/21 17:30 23:53 11:23 WBC RBC Hgb Hct MCV MCH MCHC RDW Lymph % (Auto) [place] % (Auto) Lymph # (Auto) [place] # (Auto) Seg Neutrophils % Seg Neuts % (Manual) Lymphocytes % (Manual) Monocytes % (Manual) Seg Neutrophils # Seg Neutrophils # Man Lymphocytes # (Manual) Monocytes # (Manual) PT INR APTT D-Dimer ABG pH POC ABG pCO2 POC ABG pO2 ABG Hemoglobin ABG Oxyhemoglobin ABG Sodium ABG Potassium ABG Chloride ABG Glucose Carboxyhemoglobin Sodium Potassium Chloride Carbon Dioxide BUN Creatinine Glucose POC Glucose 110 H 128 H 121 H Calcium Phosphorus Ferritin AST Lactate Dehydrogenase C-Reactive Protein Total Protein Albumin Lipase Vitamin B12 Arterial Blood Glucose Valproic Acid Coronavirus (PCR) 05/05/21 05/05/21 05/06/21 16:26 21:24 07:02 WBC 11.7 H RBC Hgb Hct MCV 99 H MCH 33 H MCHC RDW 15.5 H Lymph % (Auto) [place] % (Auto) Lymph # (Auto) [place] # (Auto) Seg Neutrophils % Seg Neuts % (Manual) 82.0 H Lymphocytes % (Manual) 4.0 L Monocytes % (Manual) Seg Neutrophils # Seg Neutrophils # Man 9.6 H Lymphocytes # (Manual) 0.5 L Monocytes # (Manual) PT INR APTT D-Dimer ABG pH POC ABG pCO2 POC ABG pO2 ABG Hemoglobin ABG Oxyhemoglobin ABG Sodium ABG Potassium ABG Chloride ABG Glucose Carboxyhemoglobin Sodium Potassium Chloride Carbon Dioxide BUN Creatinine Glucose POC Glucose 113 H 130 H Calcium Phosphorus Ferritin AST Lactate Dehydrogenase C-Reactive Protein Total Protein Albumin Lipase Vitamin B12 Arterial Blood Glucose Valproic Acid Coronavirus (PCR) 05/07/21 05/07/21 05/07/21 05:00 07:28 21:34 WBC RBC Hgb Hct MCV MCH MCHC RDW Lymph % (Auto) [place] % (Auto) Lymph # (Auto) [place] # (Auto) Seg Neutrophils % Seg Neuts % (Manual) Lymphocytes % (Manual) Monocytes % (Manual) Seg Neutrophils # Seg Neutrophils # Man Lymphocytes # (Manual) Monocytes # (Manual) PT 16.0 H INR 1.16 H APTT 43.8 H D-Dimer ABG pH POC ABG pCO2 POC ABG pO2 ABG Hemoglobin ABG Oxyhemoglobin ABG Sodium ABG Potassium ABG Chloride ABG Glucose Carboxyhemoglobin Sodium Potassium Chloride Carbon Dioxide BUN Creatinine Glucose POC Glucose 112 H 123 H Calcium Phosphorus Ferritin AST Lactate Dehydrogenase C-Reactive Protein Total Protein Albumin Lipase Vitamin B12 Arterial Blood Glucose Valproic Acid Coronavirus (PCR) 05/08/21 05/08/21 05/08/21 08:11 12:04 16:37 WBC RBC Hgb Hct MCV MCH MCHC RDW Lymph % (Auto) [place] % (Auto) Lymph # (Auto) [place] # (Auto) Seg Neutrophils % Seg Neuts % (Manual) Lymphocytes % (Manual) Monocytes % (Manual) Seg Neutrophils # Seg Neutrophils # Man Lymphocytes # (Manual) Monocytes # (Manual) PT INR APTT D-Dimer ABG pH POC ABG pCO2 POC ABG pO2 ABG Hemoglobin ABG Oxyhemoglobin ABG Sodium ABG Potassium ABG Chloride ABG Glucose Carboxyhemoglobin Sodium Potassium Chloride Carbon Dioxide BUN Creatinine Glucose POC Glucose 158 H 117 H 118 H Calcium Phosphorus Ferritin AST Lactate Dehydrogenase C-Reactive Protein Total Protein Albumin Lipase Vitamin B12 Arterial Blood Glucose Valproic Acid Coronavirus (PCR) 05/09/21 05/09/21 05/09/21 04:56 12:04 17:14 WBC RBC Hgb Hct MCV MCH MCHC RDW Lymph % (Auto) [place] % (Auto) Lymph # (Auto) [place] # (Auto) Seg Neutrophils % Seg Neuts % (Manual) Lymphocytes % (Manual) Monocytes % (Manual) Seg Neutrophils # Seg Neutrophils # Man Lymphocytes # (Manual) Monocytes # (Manual) PT INR APTT D-Dimer ABG pH POC ABG pCO2 POC ABG pO2 ABG Hemoglobin ABG Oxyhemoglobin ABG Sodium ABG Potassium ABG Chloride ABG Glucose Carboxyhemoglobin Sodium Potassium Chloride Carbon Dioxide BUN Creatinine Glucose POC Glucose 113 H 107 H 163 H Calcium Phosphorus Ferritin AST Lactate Dehydrogenase C-Reactive Protein Total Protein Albumin Lipase Vitamin B12 Arterial Blood Glucose Valproic Acid Coronavirus (PCR) 05/09/21 05/09/21 05/10/21 21:02 Unknown 12:00 WBC RBC Hgb Hct MCV MCH MCHC RDW Lymph % (Auto) [place] % (Auto) Lymph # (Auto) [place] # (Auto) Seg Neutrophils % Seg Neuts % (Manual) Lymphocytes % (Manual) Monocytes % (Manual) Seg Neutrophils # Seg Neutrophils # Man Lymphocytes # (Manual) Monocytes # (Manual) PT INR APTT D-Dimer ABG pH POC ABG pCO2 POC ABG pO2 ABG Hemoglobin ABG Oxyhemoglobin ABG Sodium ABG Potassium ABG Chloride ABG Glucose Carboxyhemoglobin Sodium Potassium Chloride Carbon Dioxide BUN Creatinine Glucose POC Glucose 139 H 132 H Calcium Phosphorus Ferritin AST Lactate Dehydrogenase C-Reactive Protein Total Protein Albumin Lipase Vitamin B12 Arterial Blood Glucose Valproic Acid Coronavirus (PCR) Positive A 05/10/21 05/10/21 05/11/21 17:36 20:37 01:46 WBC RBC Hgb Hct MCV MCH MCHC RDW Lymph % (Auto) [place] % (Auto) Lymph # (Auto) [place] # (Auto) Seg Neutrophils % Seg Neuts % (Manual) Lymphocytes % (Manual) Monocytes % (Manual) Seg Neutrophils # Seg Neutrophils # Man Lymphocytes # (Manual) Monocytes # (Manual) PT INR APTT D-Dimer ABG pH POC ABG pCO2 POC ABG pO2 ABG Hemoglobin ABG Oxyhemoglobin ABG Sodium ABG Potassium ABG Chloride ABG Glucose Carboxyhemoglobin Sodium Potassium Chloride Carbon Dioxide BUN Creatinine Glucose POC Glucose 120 H 125 H 118 H Calcium Phosphorus Ferritin AST Lactate Dehydrogenase C-Reactive Protein Total Protein Albumin Lipase Vitamin B12 Arterial Blood Glucose Valproic Acid Coronavirus (PCR) 05/11/21 05/11/21 05/11/21 02:30 02:30 03:20 WBC 12.3 H RBC 3.22 L Hgb 9.6 L Hct 33.3 L MCV 103 H MCH MCHC 29 L RDW 16.6 H Lymph % (Auto) 4.9 L [place] % (Auto) 10.6 H Lymph # (Auto) 0.6 L [place] # (Auto) 1.3 H Seg Neutrophils % 84.0 H Seg Neuts % (Manual) Lymphocytes % (Manual) Monocytes % (Manual) Seg Neutrophils # 10.4 H Seg Neutrophils # Man Lymphocytes # (Manual) Monocytes # (Manual) PT INR APTT D-Dimer ABG pH 7.083 L POC ABG pCO2 129.5 H POC ABG pO2 139.1 H ABG Hemoglobin 10.6 L ABG Oxyhemoglobin 98.4 H ABG Sodium 154.5 H ABG Potassium 5.4 H ABG Chloride 114.0 H ABG Glucose 128 H Carboxyhemoglobin 0.3 L Sodium 159 H Potassium 6.6 H* Chloride 116.6 H Carbon Dioxide 35 H BUN 41 H Creatinine Glucose 139 H POC Glucose Calcium 8.2 L Phosphorus Ferritin AST Lactate Dehydrogenase C-Reactive Protein Total Protein Albumin Lipase Vitamin B12 Arterial Blood Glucose 128 H Valproic Acid Coronavirus (PCR) 05/11/21 05:45 WBC RBC Hgb Hct MCV MCH MCHC RDW Lymph % (Auto) [place] % (Auto) Lymph # (Auto) [place] # (Auto) Seg Neutrophils % Seg Neuts % (Manual) Lymphocytes % (Manual) Monocytes % (Manual) Seg Neutrophils # Seg Neutrophils # Man Lymphocytes # (Manual) Monocytes # (Manual) PT INR APTT D-Dimer ABG pH POC ABG pCO2 POC ABG pO2 ABG Hemoglobin ABG Oxyhemoglobin ABG Sodium ABG Potassium ABG Chloride ABG Glucose Carboxyhemoglobin Sodium Potassium Chloride Carbon Dioxide BUN Creatinine Glucose POC Glucose 112 H Calcium Phosphorus Ferritin AST Lactate Dehydrogenase C-Reactive Protein Total Protein Albumin Lipase Vitamin B12 Arterial Blood Glucose Valproic Acid Coronavirus (PCR)
[2021-05-11] MEDS ORDERED: LIDOCAINE (2%) 20 MG/1 ML VIAL 20 ML MDV INFILTRATI ONE (09:22)
[2021-05-11] MEDS ORDERED: SODIUM CHLORIDE IRRI 1000 ML 1,000 ML IR ONE (09:47)
--- NOTE | 2021-05-11 10:08 | Procedure Note ---
Date of procedure: 05/11/21 Pre-op diagnosis: Mucous Plugging Post-op diagnosis: same Procedure: Bronch with airway inspection and washing. Emergency given currently clinical state but discussed with guardianship. Mucous plugs seen throughout the left side. All removed. Removed some mucous on right as well. Tolerated well with no issues. Anesthesia: none Surgeon: FRANKY CENTENO Estimated blood loss: none Pathology: none Condition: critical Disposition: ICU
--- NOTE | 2021-05-11 10:34 | XRay Report ---
XR chest 1V ap INDICATION / CLINICAL INFORMATION: s/p bronch for mucous plugging. COMPARISON: 05/11/2021 FINDINGS: SUPPORT DEVICES: Stable satisfactory position of endotracheal tube. HEART /PULMONARY VASCULATURE: Obscured LUNGS / PLEURA: Slight improved lung aeration of the left upper and midlung, though dense airspace co nsolidation remains within the left lung. Patchy opacities in the right lung are unchanged. No pneumo thorax. IMPRESSION: Minimally improved lung aeration of the left lung. Signer Name: Nader Leonard MD Signed: 05/11/2021 10:30 AM Workstation Name: [id number]
[2021-05-11 11:06] LABS: Blood Urea Nitrogen 40 mg/dL (9-20); Calcium 8.5 mg/dL (8.4-10.2); Hemolysis Index 5
[2021-05-11 11:16] LABS: BUN/Creatinine Ratio 57
[2021-05-11] MEDS: FAMOTIDINE 20 MG TAB PO SCH ×2 (11:20→21:34)
[2021-05-11] MEDS: METOPROLOL TARTRATE 25 MG TAB PO SCH ×2 (11:20→21:33)
--- NOTE | 2021-05-11 12:08 | Progress Note ---
<CARMINE DE GUZMAN - Last Filed: 05/11/21 21:14> Assessment and Plan Assessment and plan: This is a 66-year old with unknown past medical history who resides in a personal skilled nursing initially admitted for acute metabolic encephalopathy and COVID pneumonia. Patient decompensated on 05/11 requiring intubation and ventilatory support. Hospital Course to Date: 05/06/2021; patient scheduled for PEG tomorrow N.p.o. status, mild to moderate risk for the procedure No medical contraindication for PEG placement. 05/07/2021; patient scheduled for PEG today Case management working on LTAC versus SNF placement 05/08/2021; status post PEG placement yesterday Start tube feeds per protocol, continuous high flow nasal cannula oxygen 40 L Unable to wean, very poor prognosis, pulmonary following, pending LTAC evaluation 05/09/2021; continue high flow nasal cannula oxygen 35 L. Wean as tolerated Case management considering hospice, discussed with herrera of the [facility] yesterday Will follow-up with their plan 05/10/2021; mild hypotension, due to poor nutrition due to risk of aspiration nurse gives only intermittent tube feeding Resume tube feeding with aspiration precautions head end of the bed 45 degrees, reduce the flow rate to 20 to 30 mL intermittently And fluid bolus to 50 mL normal saline intermittently as needed. Patient is critically ill with poor prognosis 05/11: Intubated overnight for airway protection. S/p bronchoscopy this am due to mucus plus and complete white out of the left lung. Repeat CXR with mild improvement. D/W CCM pending on guardian's decision on code status, patient might to be bronched again if remains a full code. Patient remains on high dose pressors, will hold TF for now, continue IVF. Continue to monitor electrolytes, repeat labs ordered Assessment and Plan #Acute Metabolic Encephalopathy - Patient remains unresponsive, not on any sedation - CT head with no acute abnormalities - Neurology on consulted - Avoid benzodiazepine to reduce the possibility of delirium - PRN analgesia for CPOT greater than 3 - Patient is a herrera of [facility], contact is Ms. Mattson to discuss clinical update s/consent for procedures ([phone]) #Hypotension #Tachycardia - Hypotensive with tachycardia overnight, did not improve post IVF bolus - Now on high dose pressors, Levophed and Vaso - ST with possible peak Twave this am vs arrhythmia this am. Not cear on the monitor - Stat EKG ordered - Maintain adequate perfusion - Continue rehydration with cont. IVF - Continue blood pressure monitor per protocol - Maintain MAP above 65 #Acute Hypoxic Respiratory Failure #COVID Pneumonia #LL Mucus Plug - Presented with hypoxia requiring HHFL - Imagings with bilateral pneumonia and mucous plug - S/p aggressive chest PT - COVID Swab positive - on 05/11 Decompensated was intubated - This am CXR with complete white out of left lung - Vent setting: A/C-100%,6,24,450 - CCM consulted, appreciate recommendations - 05/11 s/p Bronchoscopy at the bedside - Post Bronch CXR with mild improvement - Continue Nebs per [facility] - VAP bundle addressed - Aspiration precaution HOB above 30 - Daily ABG and CXR - Continue SPO2 monitoring for SPO2 goal above 92% #GI:Dysphagia #Severe Protein Calorie Malnutrition - Presented with a BMI 20.3; albumin 2.4 - 05/07 s/p PEG placement by GI - Enteral Nutrition held today due high pressors - Nutrition on consult - Continue IVF for now - Continue PPI and BR - GI signed off #Hyperkalemia #Hypernatremia - High K this am, treated per protocol - Na 161 this am - IVF swithc to D5W and FWF added - Strict intake and output - Monitor and replace electrolytes as needed - Trend BMP #COVID Pneumonia #Leukocytosis - COVID swab positive - Blood culture and urine culture are negative - Spttum culture pending - Patient remains afebrile, WBCs downtrending - Completed IV steroids and Remdesevir course - Continue to F/U on B.cult - Daily CBC monitor #Endo: Glycemic Control - Continue BG check Q6hrs - No SSI at this time - Continue IVF - Avoid hypoglycemia #DVT prophylaxis - Resume AC- Lovenox SubQ - SCDs to bilateral lower extremities while in bed The high probability of a clinically significant, sudden or life threatening deterioration of the [multiple] system(s) required my full and direct attention, intervention and personal management. The aggregate critical care time was [60] minutes. This time is in addition to time spent performing reported procedures but includes the following: [x] Data Review and interpretation [x] Patient assessment and monitoring of vital signs [x] Documentation [x] Medication orders and management Disposition Plan: ICU Total Time Spent with Patient (Minutes): 60 History Interval history: Patient seen and examined at the bedside. Intubated and unresponsive, not on any sedation. Code met overnight due to hypotension and increase lethargy, patient is s/p intubation for airway protection. S/p bronchospy this am. Hospitalist Physical - Constitutional Vitals: Temp Pulse Resp BP Pulse Ox 99.2 F 122 H 24 114/69 99 05/11/21 11:56 05/11/21 11:45 05/11/21 11:45 05/11/21 11:45 05/11/21 11:45 General appearance: Present: no acute distress, cachectic, other (Unresponsive) - EENT Eyes: Present: PERRL - Respiratory Respiratory effort: normal Respiratory: bilateral: rhonchi - Cardiovascular Rhythm: regular Heart Sounds: Present: S1 & S2 - Extremities Extremities: no ischemia, pulses intact, pulses symmetrical Extremity abnormal: edema - Peripheral Assessment Generalized Edema Type: Non-pitting Edema Degree: 1+ Capillary Refill: < 3 seconds Skin Temperature: Warm Peripheral Pulses: within normal limits - Abdominal General gastrointestinal: soft, non-distended, hypoactive bowel sounds - Integumentary Integumentary: Present: warm, dry - Psychiatric Psychiatric: other (Unresponsive) - Neurologic Neurologic: other (Unresponsive) - Allied Health Allied health notes reviewed: nursing HEART Score - HEART Score Age: 45-65 Risk factors: 1-2 risk factors - Critical Actions Critical Actions: 0-3 pts:0.9-1.7%risk of adverse cardiac event.Candidate for discharge Results - Labs CBC & Chem 7: 05/11/21 02:30 05/11/21 16:40 Labs: Laboratory Last Values WBC 12.3 K/mm3 (4.5-11.0) H 05/11/21 02:30 RBC 3.22 M/mm3 (3.65-5.03) L 05/11/21 02:30 Hgb 9.6 gm/dl (11.8-15.2) L 05/11/21 02:30 Hct 33.3 % (35.5-45.6) L 05/11/21 02:30 MCV 103 fl (84-94) H 05/11/21 02:30 MCH 30 pg (28-32) 05/11/21 02:30 MCHC 29 % (32-34) L 05/11/21 02:30 RDW 16.6 % (13.2-15.2) H 05/11/21 02:30 Plt Count 154 K/mm3 (140-440) 05/11/21 02:30 Lymph % (Auto) 4.9 % (13.4-35.0) L 05/11/21 02:30 Mathews % (Auto) 10.6 % (0.0-7.3) H 05/11/21 02:30 Eos % (Auto) 0.0 % (0.0-4.3) 05/11/21 02:30 Baso % (Auto) 0.5 % (0.0-1.8) 05/11/21 02:30 Lymph # (Auto) 0.6 K/mm3 (1.2-5.4) L 05/11/21 02:30 Mathews # (Auto) 1.3 K/mm3 (0.0-0.8) H 05/11/21 02:30 Eos # (Auto) 0.0 K/mm3 (0.0-0.4) 05/11/21 02:30 Baso # (Auto) 0.1 K/mm3 (0.0-0.1) 05/11/21 02:30 Add Manual Diff Complete 05/06/21 07:02 Total Counted 100 05/06/21 07:02 Seg Neutrophils % 84.0 % (40.0-70.0) H 05/11/21 02:30 Seg Neuts % (Manual) 82.0 % (40.0-70.0) H 05/06/21 07:02 Band Neutrophils % 9.0 % 05/06/21 07:02 Lymphocytes % (Manual) 4.0 % (13.4-35.0) L 05/06/21 07:02 Reactive Lymphs % (Man) 0 % 05/06/21 07:02 Monocytes % (Manual) 5.0 % (0.0-7.3) 05/06/21 07:02 Eosinophils % (Manual) 0 % (0.0-4.3) 05/06/21 07:02 Basophils % (Manual) 0 % (0.0-1.8) 05/06/21 07:02 Metamyelocytes % 0 % 05/06/21 07:02 Myelocytes % 0 % 05/06/21 07:02 Promyelocytes % 0 % 05/06/21 07:02 Blast Cells % 0 % 05/06/21 07:02 Nucleated RBC % Not Reportable 05/06/21 07:02 Seg Neutrophils # 10.4 K/mm3 (1.8-7.7) H 05/11/21 02:30 Seg Neutrophils # Man 9.6 K/mm3 (1.8-7.7) H 05/06/21 07:02 Band Neutrophils # 1.1 K/mm3 05/06/21 07:02 Lymphocytes # (Manual) 0.5 K/mm3 (1.2-5.4) L 05/06/21 07:02 Abs React Lymphs (Man) 0.0 K/mm3 05/06/21 07:02 Monocytes # (Manual) 0.6 K/mm3 (0.0-0.8) 05/06/21 07:02 Eosinophils # (Manual) 0.0 K/mm3 (0.0-0.4) 05/06/21 07:02 Basophils # (Manual) 0.0 K/mm3 (0.0-0.1) 05/06/21 07:02 Metamyelocytes # 0.0 K/mm3 05/06/21 07:02 Myelocytes # 0.0 K/mm3 05/06/21 07:02 Promyelocytes # 0.0 K/mm3 05/06/21 07:02 Blast Cells # 0.0 K/mm3 05/06/21 07:02 WBC Morphology Not Reportable 05/06/21 07:02 Hypersegmented Neuts Not Reportable 05/06/21 07:02 Hyposegmented Neuts Not Reportable 05/06/21 07:02 Hypogranular Neuts Not Reportable 05/06/21 07:02 Smudge Cells Not Reportable 05/06/21 07:02 Toxic Granulation Not Reportable 05/06/21 07:02 Toxic Vacuolation Not Reportable 05/06/21 07:02 Dohle Bodies Not Reportable 05/06/21 07:02 Pelger-Huet Anomaly Not Reportable 05/06/21 07:02 Jeannette Rods Not Reportable 05/06/21 07:02 Platelet Estimate Consistent w auto 05/06/21 07:02 Clumped Platelets Not Reportable 05/06/21 07:02 Plt Clumps, EDTA Not Reportable 05/06/21 07:02 Large Platelets Not Reportable 05/06/21 07:02 Giant Platelets Not Reportable 05/06/21 07:02 Platelet Satelliting Not Reportable 05/06/21 07:02 Plt Morphology Comment Not Reportable 05/06/21 07:02 RBC Morphology Normal 05/06/21 07:02 Dimorphic RBCs Not Reportable 05/06/21 07:02 Polychromasia Not Reportable 05/06/21 07:02 Hypochromasia Not Reportable 05/06/21 07:02 Poikilocytosis Not Reportable 05/06/21 07:02 Anisocytosis Not Reportable 05/06/21 07:02 Microcytosis Not Reportable 05/06/21 07:02 Macrocytosis Not Reportable 05/06/21 07:02 Spherocytes Not Reportable 05/06/21 07:02 Pappenheimer Bodies Not Reportable 05/06/21 07:02 Sickle Cells Not Reportable 05/06/21 07:02 Target Cells Not Reportable 05/06/21 07:02 Tear Drop Cells Not Reportable 05/06/21 07:02 Ovalocytes Not Reportable 05/06/21 07:02 Helmet Cells Not Reportable 05/06/21 07:02 [place] Bodies Not Reportable 05/06/21 07:02 [place] Rings Not Reportable 05/06/21 07:02 [place] Cells Not Reportable 05/06/21 07:02 Bite Cells Not Reportable 05/06/21 07:02 Crenated Cell Not Reportable 05/06/21 07:02 Elliptocytes Not Reportable 05/06/21 07:02 Acanthocytes (Spur) Not Reportable 05/06/21 07:02 Rouleaux Not Reportable 05/06/21 07:02 Hemoglobin C Crystals Not Reportable 05/06/21 07:02 Schistocytes Not Reportable 05/06/21 07:02 Malaria parasites Not Reportable 05/06/21 07:02 ESR 60 mm/Hr (0-20) 05/04/21 13:28 Steve Bodies Not Reportable 05/06/21 07:02 Hem Pathologist Commnt No 05/06/21 07:02 PT 16.0 Sec. (12.2-14.9) H 05/07/21 07:28 INR 1.16 (0.87-1.13) H 05/07/21 07:28 APTT 43.8 Sec. (24.2-36.6) H 05/07/21 07:28 D-Dimer 690.97 ng/mlDDU (0-234) H 04/30/21 06:20 ABG pH 7.083 (7.320-7.450) L 05/11/21 03:20 POC ABG pCO2 129.5 mmHg (32.0-48.0) H 05/11/21 03:20 POC ABG pO2 139.1 mmHg (83-108) H 05/11/21 03:20 POC ABG HCO3 37.8 05/11/21 03:20 ABG O2 Saturation 98.8 (0-100) 05/11/21 03:20 POC ABG Base Excess 4.9 05/11/21 03:20 ABG Hemoglobin 10.6 (12.0-17.5) L 05/11/21 03:20 ABG Oxyhemoglobin 98.4 (94-98) H 05/11/21 03:20 ABG Methemoglobin 0.1 (0.0-1.5) 05/11/21 03:20 ABG Sodium 154.5 mmol/L (136.0-145.0) H 05/11/21 03:20 ABG Potassium 5.4 mmol/L (3.40-4.50) H 05/11/21 03:20 ABG Chloride 114.0 mmol/L (98-107) H 05/11/21 03:20 ABG Glucose 128 mg/dL (65-95) H 05/11/21 03:20 Carboxyhemoglobin 0.3 (0.5-1.5) L 05/11/21 03:20 FiO2 % 100.0 05/11/21 03:20 Sodium 161 mmol/L (137-145) H* 05/11/21 10:30 Potassium 4.4 mmol/L (3.6-5.0) D 05/11/21 10:30 Chloride 117.5 mmol/L (98-107) H 05/11/21 10:30 Carbon Dioxide 37 mmol/L (22-30) H 05/11/21 10:30 Anion Gap 11 mmol/L 05/11/21 10:30 BUN 40 mg/dL (9-20) H 05/11/21 10:30 Creatinine 0.7 mg/dL (0.8-1.3) L 05/11/21 10:30 Estimated GFR > 60 ml/min 05/11/21 10:30 BUN/Creatinine Ratio 57 % 05/11/21 10:30 Glucose 155 mg/dL (75-100) H 05/11/21 10:30 POC Glucose 141 mg/dL (70-105) H 05/11/21 11:30 Lactic Acid 1.20 mmol/L (0.7-2.0) 04/21/21 20:26 Calcium 8.5 mg/dL (8.4-10.2) 05/11/21 10:30 Phosphorus 2.10 mg/dL (2.5-4.5) L 05/11/21 10:30 Magnesium 2.30 mg/dL (1.7-2.3) 05/11/21 10:30 Ferritin 930.1 ng/mL (30.0-300.0) H 04/30/21 06:20 Total Bilirubin 0.70 mg/dL (0.1-1.2) 04/29/21 04:00 AST 63 units/L (5-40) H 04/29/21 04:00 ALT 37 units/L (7-56) 04/29/21 04:00 Alkaline Phosphatase 58 units/L (35-129) 04/29/21 04:00 Lactate Dehydrogenase 423 units/L (91-180) H 04/30/21 06:20 C-Reactive Protein 15.40 mg/dL (0.00-1.30) H 05/04/21 13:28 Total Protein 5.6 g/dL (6.3-8.2) L 04/29/21 04:00 Albumin 2.4 g/dL (3.9-5) L 04/29/21 04:00 Albumin/Globulin Ratio 0.8 % 04/29/21 04:00 Lipase 7 units/L (13-60) L 04/21/21 16:08 Vitamin B12 1039 pg/mL (211-911) H 04/24/21 07:56 Procalcitonin 0.92 ng/mL (<0.15) 05/05/21 09:30 TSH 1.330 mlU/mL (0.270-4.200) 04/24/21 07:56 Free T4 1.03 ng/dL (0.76-1.46) 04/24/21 07:56 Arterial Blood Glucose 128 mg/dL (65-95) H 05/11/21 03:20 Arterial Blood Ionized Calcium 4.7 mg/dL (4.6-5.3) 05/11/21 03:20 Urine Color [place] (Yellow) 04/21/21 Unknown Urine Turbidity Clear (Clear) 04/21/21 Unknown Urine pH 5.0 (5.0-7.0) 04/21/21 Unknown Ur Specific [place] 1.027 (1.003-1.030) 04/21/21 Unknown Urine Protein 100 mg/dl mg/dL (Negative) 04/21/21 Unknown Urine Glucose (UA) Neg mg/dL (Negative) 04/21/21 Unknown Urine Ketones 20 mg/dL (Negative) 04/21/21 Unknown Urine Blood Mod (Negative) 04/21/21 Unknown Urine Nitrite Neg (Negative) 04/21/21 Unknown Urine Bilirubin Neg (Negative) 04/21/21 Unknown Urine Urobilinogen 4.0 mg/dL (<2.0) 04/21/21 Unknown Ur Leukocyte Esterase Neg (Negative) 04/21/21 Unknown Urine WBC (Auto) < 1.0 /HPF (0.0-6.0) 04/21/21 Unknown Urine RBC (Auto) < 1.0 /HPF (0.0-6.0) 04/21/21 Unknown Urine Mucus Few /HPF 04/21/21 Unknown Valproic Acid 10.9 ug/mL (50-100) L 05/04/21 13:28 Coronavirus (PCR) Positive (Negative) A 05/09/21 Unknown [place]/IV: Voiding Method Incontinent Active Medications - Current Medications Current Medications: Generic Name Dose Route Start Last Admin Trade Name Freq PRN Reason Stop Dose Admin Acetaminophen 650 mg 04/21/21 22:31 05/08/21 23:18 Acetaminophen 325 Mg Tab PO 650 mg Q4H PRN Administration Pain MILD(1-3)/Fever >100.5/RAY Albuterol 2 puff 05/08/21 08:00 05/08/21 22:07 Albuterol 8.5 Gm Mdi Inhalation IH 01/19/22 07:59 Not Given TIDRT [facility] Albuterol 2.5 mg 05/09/21 12:00 Albuterol 2.5 Mg/3 Ml Nebu IH Q4HRT PRN Shortness Of Breath Lipase/Protease/Amylase 1 each 05/07/21 13:04 Lipase 10,500/Protease 25,000/Amylase 43,750 (Units) Dr Espinoza FEEDTUBE PRN PRN For Clogged Feeding Tube Famotidine 20 mg 04/22/21 10:00 05/11/21 11:20 Famotidine 20 Mg Tab PO 20 mg BID EDDIE Administration Guaifenesin 200 mg 04/24/21 08:28 05/04/21 04:48 Guaifenesin 100 Mg/5 Ml Oral Liqd PO 200 mg Q4H PRN Administration Cough NORepinephrine/NS 8 MG-250 ML 8 mg in 250 mls @ 3.75 mls/hr 05/11/21 02:00 05/11/21 11:32 Norepinephrine/Ns 8 Mg-250 Ml (Double Conc) IV 24 mcg/min TITRATE EDDIE 45 mls/hr Administration Protocol 2 MCG/MIN Vasopressin 20 unit/ Sodium 101 mls @ 9.09 mls/hr 05/11/21 04:00 Chloride IV TITR EDDIE Protocol 0.03 UNITS/MIN Dextrose 1,000 mls @ 100 mls/hr 05/11/21 12:00 D5w IV 05/11/21 21:59 DIRECT EDDIE Lorazepam 2 mg 05/11/21 01:43 Lorazepam 2 Mg/Ml Vial IV Q1H PRN Seizures Metoclopramide HCl 10 mg 04/21/21 22:31 Metoclopramide 10 Mg/2 Ml Inj IV Q6H PRN Nausea And Vomiting Metoprolol Tartrate 12.5 mg 05/04/21 22:00 05/11/21 11:20 Metoprolol Tartrate 25 Mg Tab PO Not Given BID [facility] Metoprolol Tartrate 2.5 mg 05/06/21 16:12 05/07/21 11:10 Metoprolol Tartrate 5 Mg/5 Ml Inj IV 2.5 mg Q6HR PRN Administration Tachyarrhythmias Ondansetron HCl 4 mg 04/21/21 22:31 Ondansetron 4 Mg/2 Ml Inj IV Q8H PRN Nausea And Vomiting Oxycodone/Acetaminophen 1 tab 04/21/21 22:31 04/22/21 22:35 Oxycodone /Acetaminophen 5-325mg Tab PO 1 tab Q6H PRN Administration Pain, Moderate (4-6) Simple Syrup 15 ml 05/07/21 13:04 Simple Syrup 15 Ml FEEDTUBE PRN PRN Hypoglycemia Simple Syrup 30 ml 05/07/21 13:04 Simple Syrup 15 Ml FEEDTUBE PRN PRN Hypoglycemia Sodium Bicarbonate 325 mg 05/07/21 13:04 Sodium Bicarbonate 325 Mg Tab FEEDTUBE PRN PRN For Clogged Feeding Tube Sodium Chloride 10 ml 04/22/21 10:00 05/11/21 11:21 Sodium Chloride 0.9% 10 Ml Flush Syringe IV 10 ml BID EDDIE Administration Sodium Chloride 10 ml 04/21/21 22:31 Sodium Chloride 0.9% 10 Ml Flush Syringe IV PRN PRN LINE FLUSH Valproic Acid 250 mg 05/01/21 22:00 05/10/21 22:40 Valproic Acid 250 Mg/5 Ml Oral Liqd PO 250 mg QHS EDDIE Administration Nutrition/Malnutrition Assess - Dietary Evaluation Nutrition/Malnutrition Findings: Nutrition Notes Start: 04/22/21 18:07 Freq: Status: Active Protocol: Document 05/11/21 09:12 GABINO (Rec: 05/11/21 09:20 [email or web address] [id number]) Nutrition Notes Initial or Follow up Reassessment Current Diagnosis Respiratory Failure Other Pertinent Diagnosis COVID-19 pneu, encephalopathy Current Diet TF - Jevity 1.2 at 56ml/hr Labs/Tests Na 159 K 6.6 BUN 41 Pertinent Medications Levophed gtt, Vasopressin gtt, NS at 150ml/hr Height 6 ft Weight 67.5 kg [place] Body Weight (kg) 80.90 BMI 20.2 Weight Status Appropriate Subjective/Other Information Pt transferred to ICU this am sec to hypotension. Pt now intubated and receiving 2 pressors. Burn Absent Trauma Absent #1 Nutrition Diagnosis Inadequate oral intake Diagnosis Progress(for reassessment Continues documentation) Is patient on ventilator? Yes Is Patient Ambulatory and/or Out of Bed No REE-([place]-confined to bed) [phone] Calculation [facility] Additional Notes Pro needs 1.2-2g/k-135g/ day Fluid needs 1ml/kcal Nutrition Intervention Nutrition Support: Change TF formula to Nepro at 40ml/hr with 200ml water flush q4h. Kcal 1,728 Protein (gm) 78 Carbohydrates (gm) 155 Fat (gm) 92 Fluid (mL) 698 Fiber (gm) 12 Goal #1 TF tolerance Goal #2 TF to meet at least 75% energy and pro needs Follow-Up By: 05/13/21 Additional Comments F/U: TF formula change/ tolerance, vent status, Na lab /water flushes, pressor support <ELIJAH ROBLERO - Last Filed: 05/16/21 12:43> Assessment and Plan Assessment and plan: I saw and evaluated the patient. Discussed with the nurse practitioner and agree with their findings and plan as documented in this note. Hospitalist Physical - Constitutional Vitals: Temp Pulse Resp BP Pulse Ox 97.8 F 96 H 27 H 86/56 96 05/16/21 11:19 05/16/21 08:30 05/16/21 08:00 05/16/21 08:30 05/16/21 10:25 Results - Labs CBC & Chem 7: 05/16/21 04:00 05/16/21 04:00 Labs: Laboratory Last Values WBC 20.8 K/mm3 (4.5-11.0) H 05/16/21 04:00 RBC 2.91 M/mm3 (3.65-5.03) L 05/16/21 04:00 Hgb 8.9 gm/dl (11.8-15.2) L 05/16/21 04:00 Hct 27.5 % (35.5-45.6) L 05/16/21 04:00 MCV 94 fl (84-94) 05/16/21 04:00 MCH 30 pg (28-32) 05/16/21 04:00 MCHC 32 % (32-34) 05/16/21 04:00 RDW 14.7 % (13.2-15.2) 05/16/21 04:00 Plt Count 108 K/mm3 (140-440) L 05/16/21 04:00 Lymph % (Auto) 4.9 % (13.4-35.0) L 05/11/21 02:30 Mathews % (Auto) 10.6 % (0.0-7.3) H 05/11/21 02:30 Eos % (Auto) 0.0 % (0.0-4.3) 05/11/21 02:30 Baso % (Auto) 0.5 % (0.0-1.8) 05/11/21 02:30 Lymph # (Auto) 0.6 K/mm3 (1.2-5.4) L 05/11/21 02:30 Mathews # (Auto) 1.3 K/mm3 (0.0-0.8) H 05/11/21 02:30 Eos # (Auto) 0.0 K/mm3 (0.0-0.4) 05/11/21 02:30 Baso # (Auto) 0.1 K/mm3 (0.0-0.1) 05/11/21 02:30 Add Manual Diff Complete 05/06/21 07:02 Total Counted 100 05/06/21 07:02 Seg Neutrophils % 84.0 % (40.0-70.0) H 05/11/21 02:30 Seg Neuts % (Manual) 82.0 % (40.0-70.0) H 05/06/21 07:02 Band Neutrophils % 9.0 % 05/06/21 07:02 Lymphocytes % (Manual) 4.0 % (13.4-35.0) L 05/06/21 07:02 Reactive Lymphs % (Man) 0 % 05/06/21 07:02 Monocytes % (Manual) 5.0 % (0.0-7.3) 05/06/21 07:02 Eosinophils % (Manual) 0 % (0.0-4.3) 05/06/21 07:02 Basophils % (Manual) 0 % (0.0-1.8) 05/06/21 07:02 Metamyelocytes % 0 % 05/06/21 07:02 Myelocytes % 0 % 05/06/21 07:02 Promyelocytes % 0 % 05/06/21 07:02 Blast Cells % 0 % 05/06/21 07:02 Nucleated RBC % Not Reportable 05/06/21 07:02 Seg Neutrophils # 10.4 K/mm3 (1.8-7.7) H 05/11/21 02:30 Seg Neutrophils # Man 9.6 K/mm3 (1.8-7.7) H 05/06/21 07:02 Band Neutrophils # 1.1 K/mm3 05/06/21 07:02 Lymphocytes # (Manual) 0.5 K/mm3 (1.2-5.4) L 05/06/21 07:02 Abs React Lymphs (Man) 0.0 K/mm3 05/06/21 07:02 Monocytes # (Manual) 0.6 K/mm3 (0.0-0.8) 05/06/21 07:02 Eosinophils # (Manual) 0.0 K/mm3 (0.0-0.4) 05/06/21 07:02 Basophils # (Manual) 0.0 K/mm3 (0.0-0.1) 05/06/21 07:02 Metamyelocytes # 0.0 K/mm3 05/06/21 07:02 Myelocytes # 0.0 K/mm3 05/06/21 07:02 Promyelocytes # 0.0 K/mm3 05/06/21 07:02 Blast Cells # 0.0 K/mm3 05/06/21 07:02 WBC Morphology Not Reportable 05/06/21 07:02 Hypersegmented Neuts Not Reportable 05/06/21 07:02 Hyposegmented Neuts Not Reportable 05/06/21 07:02 Hypogranular Neuts Not Reportable 05/06/21 07:02 Smudge Cells Not Reportable 05/06/21 07:02 Toxic Granulation Not Reportable 05/06/21 07:02 Toxic Vacuolation Not Reportable 05/06/21 07:02 Dohle Bodies Not Reportable 05/06/21 07:02 [place]uet Anomaly Not Reportable 05/06/21 07:02 Jeannette Rods Not Reportable 05/06/21 07:02 Platelet Estimate Consistent w auto 05/06/21 07:02 Clumped Platelets Not Reportable 05/06/21 07:02 Plt Clumps, EDTA Not Reportable 05/06/21 07:02 Large Platelets Not Reportable 05/06/21 07:02 Giant Platelets Not Reportable 05/06/21 07:02 Platelet Satelliting Not Reportable 05/06/21 07:02 Plt Morphology Comment Not Reportable 05/06/21 07:02 RBC Morphology Normal 05/06/21 07:02 Dimorphic RBCs Not Reportable 05/06/21 07:02 Polychromasia Not Reportable 05/06/21 07:02 Hypochromasia Not Reportable 05/06/21 07:02 Poikilocytosis Not Reportable 05/06/21 07:02 Anisocytosis Not Reportable 05/06/21 07:02 Microcytosis Not Reportable 05/06/21 07:02 Macrocytosis Not Reportable 05/06/21 07:02 Spherocytes Not Reportable 05/06/21 07:02 Pappenheimer Bodies Not Reportable 05/06/21 07:02 Sickle Cells Not Reportable 05/06/21 07:02 Target Cells Not Reportable 05/06/21 07:02 Tear Drop Cells Not Reportable 05/06/21 07:02 Ovalocytes Not Reportable 05/06/21 07:02 Helmet Cells Not Reportable 05/06/21 07:02 [place] Bodies Not Reportable 05/06/21 07:02 [place] Rings Not Reportable 05/06/21 07:02 [place] Cells Not Reportable 05/06/21 07:02 Bite Cells Not Reportable 05/06/21 07:02 Crenated Cell Not Reportable 05/06/21 07:02 Elliptocytes Not Reportable 05/06/21 07:02 Acanthocytes (Spur) Not Reportable 05/06/21 07:02 Rouleaux Not Reportable 05/06/21 07:02 Hemoglobin C Crystals Not Reportable 05/06/21 07:02 Schistocytes Not Reportable 05/06/21 07:02 Malaria parasites Not Reportable 05/06/21 07:02 ESR 60 mm/Hr (0-20) 05/04/21 13:28 Steve Bodies Not Reportable 05/06/21 07:02 Hem Pathologist Commnt No 05/06/21 07:02 PT 14.6 Sec. (12.2-14.9) 05/15/21 05:00 INR 1.03 (0.87-1.13) 05/15/21 05:00 APTT 43.8 Sec. (24.2-36.6) H 05/07/21 07:28 D-Dimer 690.97 ng/mlDDU (0-234) H 04/30/21 06:20 ABG pH 7.514 pH Units (7.350-7.450) H 05/16/21 03:09 POC ABG pCO2 129.5 mmHg (32.0-48.0) H 05/11/21 03:20 ABG pCO2 42.9 mm Hg 05/16/21 03:09 POC ABG pO2 139.1 mmHg (83-108) H 05/11/21 03:20 ABG pO2 66.8 mm Hg (80.0-90.0) L 05/16/21 03:09 POC ABG HCO3 37.8 05/11/21 03:20 ABG HCO3 33.8 mmol/L (20.0-26.0) H 05/16/21 03:09 ABG O2 Saturation 96.2 % (95.0-99.0) 05/16/21 03:09 ABG O2 Content 11.8 (0.0-44) 05/16/21 03:09 POC ABG Base Excess 4.9 05/11/21 03:20 ABG Base Excess 9.9 mmol/L (-2.0-3.0) H 05/16/21 03:09 ABG Hemoglobin 8.9 gm/dl (14.0-18.0) L 05/16/21 03:09 ABG Oxyhemoglobin 98.4 (94-98) H 05/11/21 03:20 ABG Carboxyhemoglobin 1.5 % (0.0-5.0) 05/16/21 03:09 ABG Methemoglobin 0.5 % (0.0-1.5) 05/16/21 03:09 ABG Sodium 154.5 mmol/L (136.0-145.0) H 05/11/21 03:20 ABG Potassium 5.4 mmol/L (3.40-4.50) H 05/11/21 03:20 ABG Chloride 114.0 mmol/L (98-107) H 05/11/21 03:20 ABG Glucose 128 mg/dL (65-95) H 05/11/21 03:20 Oxyhemoglobin 94.2 % (95.0-99.0) L 05/16/21 03:09 Carboxyhemoglobin 0.3 (0.5-1.5) L 05/11/21 03:20 FiO2 30 % 05/16/21 03:09 FiO2 % 100.0 05/11/21 03:20 Sodium 148 mmol/L (137-145) H 05/16/21 04:00 Potassium 3.1 mmol/L (3.6-5.0) L 05/16/21 04:00 Chloride 107.1 mmol/L (98-107) H 05/16/21 04:00 Carbon Dioxide 32 mmol/L (22-30) H 05/16/21 04:00 Anion Gap 12 mmol/L 05/16/21 04:00 BUN 17 mg/dL (9-20) 05/16/21 04:00 Creatinine 0.2 mg/dL (0.8-1.3) L 05/16/21 04:00 Estimated GFR > 60 ml/min 05/16/21 04:00 BUN/Creatinine Ratio 85 % 05/16/21 04:00 Glucose 122 mg/dL (75-100) H 05/16/21 04:00 POC Glucose 103 mg/dL (70-105) 05/16/21 11:10 Lactic Acid 1.20 mmol/L (0.7-2.0) 04/21/21 20:26 Calcium 7.8 mg/dL (8.4-10.2) L 05/16/21 04:00 Phosphorus 3.40 mg/dL (2.5-4.5) D 05/15/21 05:00 Magnesium 1.90 mg/dL (1.7-2.3) 05/15/21 05:00 Ferritin 930.1 ng/mL (30.0-300.0) H 04/30/21 06:20 Total Bilirubin 0.70 mg/dL (0.1-1.2) 04/29/21 04:00 AST 63 units/L (5-40) H 04/29/21 04:00 ALT 37 units/L (7-56) 04/29/21 04:00 Alkaline Phosphatase 58 units/L (35-129) 04/29/21 04:00 Lactate Dehydrogenase 423 units/L (91-180) H 04/30/21 06:20 C-Reactive Protein 15.40 mg/dL (0.00-1.30) H 05/04/21 13:28 Total Protein 5.6 g/dL (6.3-8.2) L 04/29/21 04:00 Albumin 2.4 g/dL (3.9-5) L 04/29/21 04:00 Albumin/Globulin Ratio 0.8 % 04/29/21 04:00 Lipase 7 units/L (13-60) L 04/21/21 16:08 Vitamin B12 1039 pg/mL (211-911) H 04/24/21 07:56 Procalcitonin 0.92 ng/mL (<0.15) 05/05/21 09:30 TSH 1.330 mlU/mL (0.270-4.200) 04/24/21 07:56 Free T4 1.03 ng/dL (0.76-1.46) 04/24/21 07:56 Arterial Blood Glucose 128 mg/dL (65-95) H 05/11/21 03:20 Arterial Blood Ionized Calcium 4.7 mg/dL (4.6-5.3) 05/11/21 03:20 Urine Color [place] (Yellow) 04/21/21 Unknown Urine Turbidity Clear (Clear) 04/21/21 Unknown Urine pH 5.0 (5.0-7.0) 04/21/21 Unknown Ur Specific [place] 1.027 (1.003-1.030) 04/21/21 Unknown Urine Protein 100 mg/dl mg/dL (Negative) 04/21/21 Unknown Urine Glucose (UA) Neg mg/dL (Negative) 04/21/21 Unknown Urine Ketones 20 mg/dL (Negative) 04/21/21 Unknown Urine Blood Mod (Negative) 04/21/21 Unknown Urine Nitrite Neg (Negative) 04/21/21 Unknown Urine Bilirubin Neg (Negative) 04/21/21 Unknown Urine Urobilinogen 4.0 mg/dL (<2.0) 04/21/21 Unknown Ur Leukocyte Esterase Neg (Negative) 04/21/21 Unknown Urine WBC (Auto) < 1.0 /HPF (0.0-6.0) 04/21/21 Unknown Urine RBC (Auto) < 1.0 /HPF (0.0-6.0) 04/21/21 Unknown Urine Mucus Few /HPF 04/21/21 Unknown Valproic Acid 10.9 ug/mL (50-100) L 05/04/21 13:28 Coronavirus (PCR) Positive (Negative) A 05/09/21 Unknown [place]/IV: Voiding Method Indwelling Catheter Active Medications - Current Medications Current Medications: Generic Name Dose Route Start Last Admin Trade Name Freq PRN Reason Stop Dose Admin Acetaminophen 650 mg 04/21/21 22:31 05/14/21 07:28 Acetaminophen 325 Mg Tab PO 650 mg Q4H PRN Administration Pain MILD(1-3)/Fever >100.5/RAY Albuterol 2.5 mg 05/09/21 12:00 Albuterol 2.5 Mg/3 Ml Nebu IH Q4HRT PRN Shortness Of Breath Lipase/Protease/Amylase 1 each 05/07/21 13:04 Lipase 10,500/Protease 25,000/Amylase 43,750 (Units) Dr Cap FEEDTUBE PRN PRN For Clogged Feeding Tube Enoxaparin Sodium 40 mg 05/11/21 22:00 05/15/21 21:47 Enoxaparin 40 Mg/0.4 Ml Inj SUB-Q 40 mg QDAY@2200 EDDIE Administration Protocol Famotidine 20 mg 05/13/21 10:00 05/16/21 09:06 Famotidine 20 Mg Tab FEEDTUBE 20 mg BID EDDIE Administration Fentanyl 50 mcg 05/11/21 19:33 05/11/21 20:27 Fentanyl 100 Mcg/2 Ml Inj IV 50 mcg Q10MIN PRN Administration ANALGESIA Hydrocortisone Sodium Succinate 100 mg 05/14/21 12:00 05/16/21 05:05 Hydrocortisone Sod Succ 100 Mg/2 Ml Vial IV 100 mg Q8HR EDDIE Administration NORepinephrine/NS 8 MG-250 ML 8 mg in 250 mls @ 3.75 mls/hr 05/11/21 02:00 05/16/21 00:40 Norepinephrine/Ns 8 Mg-250 Ml (Double Conc) IV 3 mcg/min TITRATE EDDIE 5.625 mls/hr Titration Protocol 2 MCG/MIN Vasopressin 20 unit/ Sodium 101 mls @ 9.09 mls/hr 05/11/21 04:00 05/13/21 08:13 Chloride IV 0 units/min TITR EDDIE 0 mls/hr Titration Protocol 0.03 UNITS/MIN Fentanyl Citrate 2,000 mcg in 100 mls @ 2.64 mls/hr 05/11/21 20:00 Fentanyl Drip Premix IV TITR EDDIE Protocol 1 MCG/KG/HR Dextrose 1,000 mls @ 75 mls/hr 05/15/21 06:00 05/15/21 16:15 D5w IV 75 mls/hr DIRECT EDDIE Administration Lorazepam 2 mg 05/11/21 01:43 Lorazepam 2 Mg/Ml Vial IV Q1H PRN Seizures Metoclopramide HCl 10 mg 04/21/21 22:31 Metoclopramide 10 Mg/2 Ml Inj IV Q6H PRN Nausea And Vomiting Metoprolol Tartrate 2.5 mg 05/06/21 16:12 05/14/21 07:39 Metoprolol Tartrate 5 Mg/5 Ml Inj IV 2.5 mg Q6HR PRN Administration Tachyarrhythmias Ondansetron HCl 4 mg 04/21/21 22:31 Ondansetron 4 Mg/2 Ml Inj IV Q8H PRN Nausea And Vomiting Senna 17.2 mg 05/13/21 22:00 05/15/21 21:47 Sennosides 8.6 Mg Tab FEEDTUBE 17.2 mg QHS EDDIE Administration Simple Syrup 15 ml 05/07/21 13:04 Simple Syrup 15 Ml FEEDTUBE PRN PRN Hypoglycemia Simple Syrup 30 ml 05/07/21 13:04 Simple Syrup 15 Ml FEEDTUBE PRN PRN Hypoglycemia Sodium Bicarbonate 325 mg 05/07/21 13:04 Sodium Bicarbonate 325 Mg Tab FEEDTUBE PRN PRN For Clogged Feeding Tube Sodium Chloride 10 ml 04/22/21 10:00 05/16/21 09:06 Sodium Chloride 0.9% 10 Ml Flush Syringe IV 10 ml BID EDDIE Administration Sodium Chloride 10 ml 04/21/21 22:31 Sodium Chloride 0.9% 10 Ml Flush Syringe IV PRN PRN LINE FLUSH Valproic Acid 250 mg 05/13/21 22:00 05/15/21 21:47 Valproic Acid 250 Mg/5 Ml Oral Liqd FEEDTUBE 250 mg QHS EDDIE Administration Nutrition/Malnutrition Assess - Dietary Evaluation Nutrition/Malnutrition Findings: Nutrition Notes Start: 04/22/21 18:07 Freq: Status: Active Protocol: Document 05/15/21 15:28 GABINO (Rec: 05/15/21 15:35 NHALL [id number]) Nutrition Notes Initial or Follow up Reassessment Current Diagnosis Respiratory Failure Other Pertinent Diagnosis COVID-19 pneu, encephalopathy Current Diet NPO Labs/Tests Na 147 Pertinent Medications D5W at 75ml/hr, Solucortef, Levophed gtt Height 6 ft Weight 53.5 kg [place] Body Weight (kg) 80.90 BMI 16.0 Subjective/Other Information Unable to reach RN to discuss wt discrepancy. TF on hold for trach placement today. Pt remains on vent support. Burn Absent Trauma Absent #1 Nutrition Diagnosis Inadequate oral intake Diagnosis Progress(for reassessment Continues documentation) Is patient on ventilator? Yes Is Patient Ambulatory and/or Out of Bed No REE-([place]-confined to bed) 1641.108 Kcal/Kg value to use for calculation 34 Approximate Energy Requirements Using 1819 kcal/Kg Calculation Used for Recommendations Kcal/kg Additional Notes Pro needs 1.2-2g/k-107g/ day Fluid needs 1ml/kcal Nutrition Intervention Nutrition Support: When feasible, resume Nepro at 40ml/hr with 200ml water flush q4h Goal #1 Resume TF to meet nutrient needs Follow-Up By: 05/18/21 Additional Comments F/U: TF restart, Na lab/water flushes, vent support
[2021-05-11] MEDS: METOPROLOL TARTRATE 5 MG/5 ML INJ IV PRN (15:11)
[2021-05-11] MEDS: VASOPRESSIN 20 UNIT in SODIUM CHLORIDE 0.9% 100 ML IV SCH (15:11)
[2021-05-11] MEDS: oxyCODONE /ACETAMINOPHEN 5-325MG TAB PO PRN (17:01)
[2021-05-11 17:53] LABS: BUN/Creatinine Ratio 55; Blood Urea Nitrogen 44 mg/dL (9-20); Calcium 8.8 mg/dL (8.4-10.2); Hemolysis Index 3
[2021-05-11] MEDS ORDERED: fentaNYL 100 MCG/2 ML INJ IV PRN (19:33)
[2021-05-11] MEDS ORDERED: fentaNYL DRIP Premix 2,000 MCG/100 ML BAG IV SCH (20:00)
[2021-05-11] MEDS: ALBUTEROL 8.5 GM MDI INHALATION IH SCH ×2 (21:28→21:29)
[2021-05-11] MEDS: ENOXAPARIN 40 MG/0.4 ML INJ SUB-Q SCH (21:33)
[2021-05-11] MEDS: VALPROIC ACID 250 MG/5 ML ORAL LIQD PO SCH (21:33)
[2021-05-11] MEDS: SENNOSIDES 8.6 MG TAB PO SCH (21:34)
[2021-05-11] MEDS: DEXTROSE 5% IN WATER 1,000 ML IV SCH (23:45)
[2021-05-12] MEDS: NORepinephrine/NS 8 MG-250 ML 8 MG/250 ML INFUS..BTL IV SCH ×3 (00:49→21:51)
[2021-05-12] MEDS: VASOPRESSIN 20 UNIT in SODIUM CHLORIDE 0.9% 100 ML IV SCH ×3 (01:09→21:52)
[2021-05-12] MEDS: FREE WATER PO SCH ×3 (05:24→18:30)
[2021-05-12 05:40] LABS: ABG Base Excess 9.3 mmol/L (-2.0-3.0); ABG HCO3 36.8 mmol/L (20.0-26.0); ABG Methemoglobin 0.6 % (0.0-1.5); ABG Oxygen Saturation 97.5 % (95.0-99.0); ABG PCO2 66.7 mm Hg; ABG PH 7.36 pH Units (7.350-7.450); ABG PO2 107.6 mm Hg (80.0-90.0)
--- NOTE | 2021-05-12 06:30 | XRay Report ---
CHEST 1 VIEW 05/12/2021 5:07 AM INDICATION / CLINICAL INFORMATION: F/U post Bronch. COMPARISON: 05/11/21 FINDINGS: SUPPORT DEVICES: Endotracheal tube is unchanged. HEART / MEDIASTINUM: Stable. LUNGS / PLEURA: Improved aeration of the left lung. Bilateral pulmonary opacities, left greater than right, are unchanged. No pneumothorax. ADDITIONAL FINDINGS: No significant additional findings. IMPRESSION: 1. Improved aeration of the left lung. Signer Name: Goyo Ontiveros MD Signed: 05/12/2021 6:26 AM Workstation Name: [id number]
[2021-05-12 06:34] LABS: Hematocrit 30.9 % (35.5-45.6); Hemoglobin 9.4 gm/dl (11.8-15.2); Mean Corpuscular HGB Conc 30 % (32-34); Mean Corpuscular Volume 99 fl (84-94); Platelet Count 142 K/mm3 (140-440); Red Blood Count 3.13 M/mm3 (3.65-5.03)
[2021-05-12 06:58] LABS: Blood Urea Nitrogen 41 mg/dL (9-20); Calcium 8.8 mg/dL (8.4-10.2); Hemolysis Index 9
[2021-05-12 07:02] LABS: BUN/Creatinine Ratio 82
[2021-05-12] MEDS: DEXTROSE 5% IN WATER 1,000 ML IV SCH ×2 (09:28→21:37)
[2021-05-12] MEDS: METOPROLOL TARTRATE 25 MG TAB PO SCH ×2 (09:28→21:40)
[2021-05-12] MEDS: FAMOTIDINE 20 MG TAB PO SCH ×2 (09:29→21:36)
--- NOTE | 2021-05-12 14:39 | Progress Note ---
<CARMINE DE GUZMAN - Last Filed: 05/12/21 20:24> Assessment and Plan Assessment and plan: This is a 66-year old with unknown past medical history who resides in a personal chcf initially admitted for acute metabolic encephalopathy and COVID pneumonia. Patient decompensated on 05/11 requiring intubation and ventilatory support. Hospital Course to Date: 05/06/2021; patient scheduled for PEG tomorrow N.p.o. status, mild to moderate risk for the procedure No medical contraindication for PEG placement. 05/07/2021; patient scheduled for PEG today Case management working on LTAC versus SNF placement 05/08/2021; status post PEG placement yesterday Start tube feeds per protocol, continuous high flow nasal cannula oxygen 40 L Unable to wean, very poor prognosis, pulmonary following, pending LTAC evaluation 05/09/2021; continue high flow nasal cannula oxygen 35 L. Wean as tolerated Case management considering hospice, discussed with herrera of the [facility] yesterday Will follow-up with their plan 05/10/2021; mild hypotension, due to poor nutrition due to risk of aspiration nurse gives only intermittent tube feeding Resume tube feeding with aspiration precautions head end of the bed 45 degrees, reduce the flow rate to 20 to 30 mL intermittently And fluid bolus to 50 mL normal saline intermittently as needed. Patient is critically ill with poor prognosis 05/11: Intubated overnight for airway protection. S/p bronchoscopy this am due to mucus plus and complete white out of the left lung. Repeat CXR with mild improvement. D/W [facility] pending on guardian's decision on code status, patient might to be bronched again if remains a full code. Patient remains on high dose pressors, will hold TF for now, continue IVF. Continue to monitor electrolytes, repeat labs ordered 05/12: Patient aeration improved post bronch. Remains on 2 pressors, patient afebrile with no leukocytosis. Will try fluid bolus challenge in attempt to wean off pressors. D/w [facility] plan for tracheotomy, surgery consulted. Assessment and Plan #Acute Metabolic Encephalopathy - Patient remains unresponsive, not on any sedation - CT head with no acute abnormalities - Neurology on consulted - Avoid benzodiazepine to reduce the possibility of delirium - PRN analgesia for CPOT greater than 3 - Patient is a herrera of [facility], contact is Ms. Mattson to discuss clinical updates/consent for procedures ([phone]) #Hypotension #Tachycardia - Hypotensive with tachycardia overnight, did not improve post IVF bolus - Now on high dose pressors, Levophed and Vaso - ST with possible peak Twave this am vs arrhythmia this am. Not cear on the monitor - 1L LR bolus, plan to wean off pressors - Maintain adequate perfusion - Continue rehydration with cont. IVF - Continue blood pressure monitor per protocol - Maintain MAP above 65 #Acute Hypoxic Respiratory Failure #COVID Pneumonia #LL Mucus Plug - Presented with hypoxia requiring HHFL - Imagings with bilateral pneumonia and mucous plug - S/p aggressive chest PT - COVID Swab positive - on 05/11 Decompensated was intubated, CXR with complete white out of left lung - Vent setting: A/C-100%,6,24,450 - CCM consulted, appreciate recommendations - 05/11 s/p Bronchoscopy at the bedside - Post Bronch CXR with improved aeration - Continue Nebs per [facility] - VAP bundle addressed - Aspiration precaution HOB above 30 - Daily ABG and CXR - Continue SPO2 monitoring for SPO2 goal above 92% #GI:Dysphagia #Severe Protein Calorie Malnutrition - Presented with a BMI 20.3; albumin 2.4 - 05/07 s/p PEG placement by GI - Continue to hold Enteral Nutrition due high pressors - Nutrition on consult - Continue IVF for now - Continue PPI and BR - GI signed off #Hypernatremia #Hyperkalemia- improved - Na remains elevated - Continue D5W and FWF added - Strict intake and output - Monitor and replace electrolytes as needed - Trend BMP #COVID Pneumonia #Leukocytosis - COVID swab positive - Blood culture and urine culture are negative - Sputum culture pending - Patient remains afebrile, WBCs downtrending - Completed IV steroids and Remdesevir course - Continue to F/U on B.cult - Daily CBC monitor #Endo: Glycemic Control - Continue BG check Q6hrs - No SSI at this time - Continue IVF - Avoid hypoglycemia #DVT prophylaxis - Continue AC- Lovenox SubQ - SCDs to bilateral lower extremities while in bed The high probability of a clinically significant, sudden or life threatening deterioration of the [multiple] system(s) required my full and direct attention, intervention and personal management. The aggregate critical care time was [60] minutes. This time is in addition to time spent performing reported procedures but includes the following: [x] Data Review and interpretation [x] Patient assessment and monitoring of vital signs [x] Documentation [x] Medication orders and management Disposition Plan: ICU Total Time Spent with Patient (Minutes): 60 History Interval history: Patient seen and examined at the bedside. Intubated and unresponsive, not on any sedation. Remains on Vaso and Levophed gtt. Urinary retention overnight reaves inserted Hospitalist Physical - Constitutional Vitals: Temp Pulse Resp BP Pulse Ox 97.8 F 95 H 25 H 97/65 99 05/12/21 12:00 05/12/21 14:00 05/12/21 14:00 05/12/21 14:00 05/12/21 14:00 General appearance: Present: no acute distress, cachectic, other (Unresponsive) - EENT Eyes: Present: PERRL - Respiratory Respiratory effort: normal Respiratory: bilateral: rhonchi - Cardiovascular Rhythm: regular Heart Sounds: Present: S1 & S2 - Extremities Extremities: no ischemia, pulses intact, pulses symmetrical Extremity abnormal: edema - Peripheral Assessment Generalized Edema Type: Non-pitting Edema Degree: 1+ Capillary Refill: < 3 seconds Peripheral Pulses: within normal limits - Abdominal General gastrointestinal: soft, non-distended, hypoactive bowel sounds - Integumentary Integumentary: Present: warm, dry - Psychiatric Psychiatric: other (Unresponsive) - Neurologic Neurologic: other (Unresponsive) - Allied Health Allied health notes reviewed: nursing HEART Score - HEART Score Age: 45-65 Risk factors: 1-2 risk factors - Critical Actions Critical Actions: 0-3 pts:0.9-1.7%risk of adverse cardiac event.Candidate for gilles mehta Results - Labs CBC & Chem 7: 05/12/21 05:56 05/12/21 05:56 Labs: Laboratory Last Values WBC 11.6 K/mm3 (4.5-11.0) H 05/12/21 05:56 RBC 3.13 M/mm3 (3.65-5.03) L 05/12/21 05:56 Hgb 9.4 gm/dl (11.8-15.2) L 05/12/21 05:56 Hct 30.9 % (35.5-45.6) L 05/12/21 05:56 MCV 99 fl (84-94) H 05/12/21 05:56 MCH 30 pg (28-32) 05/12/21 05:56 MCHC 30 % (32-34) L 05/12/21 05:56 RDW 16.0 % (13.2-15.2) H 05/12/21 05:56 Plt Count 142 K/mm3 (140-440) 05/12/21 05:56 Lymph % (Auto) 4.9 % (13.4-35.0) L 05/11/21 02:30 [place] % (Auto) 10.6 % (0.0-7.3) H 05/11/21 02:30 Eos % (Auto) 0.0 % (0.0-4.3) 05/11/21 02:30 Baso % (Auto) 0.5 % (0.0-1.8) 05/11/21 02:30 Lymph # (Auto) 0.6 K/mm3 (1.2-5.4) L 05/11/21 02:30 [place] # (Auto) 1.3 K/mm3 (0.0-0.8) H 05/11/21 02:30 Eos # (Auto) 0.0 K/mm3 (0.0-0.4) 05/11/21 02:30 Baso # (Auto) 0.1 K/mm3 (0.0-0.1) 05/11/21 02:30 Add Manual Diff Complete 05/06/21 07:02 Total Counted 100 05/06/21 07:02 Seg Neutrophils % 84.0 % (40.0-70.0) H 05/11/21 02:30 Seg Neuts % (Manual) 82.0 % (40.0-70.0) H 05/06/21 07:02 Band Neutrophils % 9.0 % 05/06/21 07:02 Lymphocytes % (Manual) 4.0 % (13.4-35.0) L 05/06/21 07:02 Reactive Lymphs % (Man) 0 % 05/06/21 07:02 Monocytes % (Manual) 5.0 % (0.0-7.3) 05/06/21 07:02 Eosinophils % (Manual) 0 % (0.0-4.3) 05/06/21 07:02 Basophils % (Manual) 0 % (0.0-1.8) 05/06/21 07:02 Metamyelocytes % 0 % 05/06/21 07:02 Myelocytes % 0 % 05/06/21 07:02 Promyelocytes % 0 % 05/06/21 07:02 Blast Cells % 0 % 05/06/21 07:02 Nucleated RBC % Not Reportable 05/06/21 07:02 Seg Neutrophils # 10.4 K/mm3 (1.8-7.7) H 05/11/21 02:30 Seg Neutrophils # Man 9.6 K/mm3 (1.8-7.7) H 05/06/21 07:02 Band Neutrophils # 1.1 K/mm3 05/06/21 07:02 Lymphocytes # (Manual) 0.5 K/mm3 (1.2-5.4) L 05/06/21 07:02 Abs React Lymphs (Man) 0.0 K/mm3 05/06/21 07:02 Monocytes # (Manual) 0.6 K/mm3 (0.0-0.8) 05/06/21 07:02 Eosinophils # (Manual) 0.0 K/mm3 (0.0-0.4) 05/06/21 07:02 Basophils # (Manual) 0.0 K/mm3 (0.0-0.1) 05/06/21 07:02 Metamyelocytes # 0.0 K/mm3 05/06/21 07:02 Myelocytes # 0.0 K/mm3 05/06/21 07:02 Promyelocytes # 0.0 K/mm3 05/06/21 07:02 Blast Cells # 0.0 K/mm3 05/06/21 07:02 WBC Morphology Not Reportable 05/06/21 07:02 Hypersegmented Neuts Not Reportable 05/06/21 07:02 Hyposegmented Neuts Not Reportable 05/06/21 07:02 Hypogranular Neuts Not Reportable 05/06/21 07:02 Smudge Cells Not Reportable 05/06/21 07:02 Toxic Granulation Not Reportable 05/06/21 07:02 Toxic Vacuolation Not Reportable 05/06/21 07:02 Dohle Bodies Not Reportable 05/06/21 07:02 Pelger-Huet Anomaly Not Reportable 05/06/21 07:02 Jeannette Rods Not Reportable 05/06/21 07:02 Platelet Estimate Consistent w auto 05/06/21 07:02 Clumped Platelets Not Reportable 05/06/21 07:02 Plt Clumps, EDTA Not Reportable 05/06/21 07:02 Large Platelets Not Reportable 05/06/21 07:02 Giant Platelets Not Reportable 05/06/21 07:02 Platelet Satelliting Not Reportable 05/06/21 07:02 Plt Morphology Comment Not Reportable 05/06/21 07:02 RBC Morphology Normal 05/06/21 07:02 Dimorphic RBCs Not Reportable 05/06/21 07:02 Polychromasia Not Reportable 05/06/21 07:02 Hypochromasia Not Reportable 05/06/21 07:02 Poikilocytosis Not Reportable 05/06/21 07:02 Anisocytosis Not Reportable 05/06/21 07:02 Microcytosis Not Reportable 05/06/21 07:02 Macrocytosis Not Reportable 05/06/21 07:02 Spherocytes Not Reportable 05/06/21 07:02 Pappenheimer Bodies Not Reportable 05/06/21 07:02 Sickle Cells Not Reportable 05/06/21 07:02 Target Cells Not Reportable 05/06/21 07:02 Tear Drop Cells Not Reportable 05/06/21 07:02 Ovalocytes Not Reportable 05/06/21 07:02 Helmet Cells Not Reportable 05/06/21 07:02 [place] Bodies Not Reportable 05/06/21 07:02 [place] Rings Not Reportable 05/06/21 07:02 [place] Cells Not Reportable 05/06/21 07:02 Bite Cells Not Reportable 05/06/21 07:02 Crenated Cell Not Reportable 05/06/21 07:02 Elliptocytes Not Reportable 05/06/21 07:02 Acanthocytes (Spur) Not Reportable 05/06/21 07:02 Rouleaux Not Reportable 05/06/21 07:02 Hemoglobin C Crystals Not Reportable 05/06/21 07:02 Schistocytes Not Reportable 05/06/21 07:02 Malaria parasites Not Reportable 05/06/21 07:02 ESR 60 mm/Hr (0-20) 05/04/21 13:28 Steve Bodies Not Reportable 05/06/21 07:02 Hem Pathologist Commnt No 05/06/21 07:02 PT 16.0 Sec. (12.2-14.9) H 05/07/21 07:28 INR 1.16 (0.87-1.13) H 05/07/21 07:28 APTT 43.8 Sec. (24.2-36.6) H 05/07/21 07:28 D-Dimer 690.97 ng/mlDDU (0-234) H 04/30/21 06:20 ABG pH 7.360 pH Units (7.350-7.450) 05/12/21 05:27 POC ABG pCO2 129.5 mmHg (32.0-48.0) H 05/11/21 03:20 ABG pCO2 66.7 mm Hg 05/12/21 05:27 POC ABG pO2 139.1 mmHg (83-108) H 05/11/21 03:20 ABG pO2 107.6 mm Hg (80.0-90.0) H 05/12/21 05:27 POC ABG HCO3 37.8 05/11/21 03:20 ABG HCO3 36.8 mmol/L (20.0-26.0) H 05/12/21 05:27 ABG O2 Saturation 97.5 % (95.0-99.0) 05/12/21 05:27 ABG O2 Content 15.3 (0.0-44) 05/12/21 05:27 POC ABG Base Excess 4.9 05/11/21 03:20 ABG Base Excess 9.3 mmol/L (-2.0-3.0) H 05/12/21 05:27 ABG Hemoglobin 11.2 gm/dl (14.0-18.0) L 05/12/21 05:27 ABG Oxyhemoglobin 98.4 (94-98) H 05/11/21 03:20 ABG Carboxyhemoglobin 1.0 % (0.0-5.0) 05/12/21 05:27 ABG Methemoglobin 0.6 % (0.0-1.5) 05/12/21 05:27 ABG Sodium 154.5 mmol/L (136.0-145.0) H 05/11/21 03:20 ABG Potassium 5.4 mmol/L (3.40-4.50) H 05/11/21 03:20 ABG Chloride 114.0 mmol/L (98-107) H 05/11/21 03:20 ABG Glucose 128 mg/dL (65-95) H 05/11/21 03:20 Oxyhemoglobin 96.0 % (95.0-99.0) 05/12/21 05:27 Carboxyhemoglobin 0.3 (0.5-1.5) L 05/11/21 03:20 FiO2 70 % 05/12/21 05:27 FiO2 % 100.0 05/11/21 03:20 Sodium 154 mmol/L (137-145) H 05/12/21 05:56 Potassium 4.2 mmol/L (3.6-5.0) 05/12/21 05:56 Chloride 111.4 mmol/L (98-107) H 05/12/21 05:56 Carbon Dioxide 34 mmol/L (22-30) H 05/12/21 05:56 Anion Gap 13 mmol/L 05/12/21 05:56 BUN 41 mg/dL (9-20) H 05/12/21 05:56 Creatinine 0.5 mg/dL (0.8-1.3) L 05/12/21 05:56 Estimated GFR > 60 ml/min 05/12/21 05:56 BUN/Creatinine Ratio 82 % 05/12/21 05:56 Glucose 185 mg/dL (75-100) H 05/12/21 05:56 POC Glucose 137 mg/dL (70-105) H 05/12/21 11:57 Lactic Acid 1.20 mmol/L (0.7-2.0) 04/21/21 20:26 Calcium 8.8 mg/dL (8.4-10.2) 05/12/21 05:56 Phosphorus 2.40 mg/dL (2.5-4.5) L 05/12/21 05:56 Magnesium 2.30 mg/dL (1.7-2.3) 05/12/21 05:56 Ferritin 930.1 ng/mL (30.0-300.0) H 04/30/21 06:20 Total Bilirubin 0.70 mg/dL (0.1-1.2) 04/29/21 04:00 AST 63 units/L (5-40) H 04/29/21 04:00 ALT 37 units/L (7-56) 04/29/21 04:00 Alkaline Phosphatase 58 units/L (35-129) 04/29/21 04:00 Lactate Dehydrogenase 423 units/L (91-180) H 04/30/21 06:20 C-Reactive Protein 15.40 mg/dL (0.00-1.30) H 05/04/21 13:28 Total Protein 5.6 g/dL (6.3-8.2) L 04/29/21 04:00 Albumin 2.4 g/dL (3.9-5) L 04/29/21 04:00 Albumin/Globulin Ratio 0.8 % 04/29/21 04:00 Lipase 7 units/L (13-60) L 04/21/21 16:08 Vitamin B12 1039 pg/mL (211-911) H 04/24/21 07:56 Procalcitonin 0.92 ng/mL (<0.15) 05/05/21 09:30 TSH 1.330 mlU/mL (0.270-4.200) 04/24/21 07:56 Free T4 1.03 ng/dL (0.76-1.46) 04/24/21 07:56 Arterial Blood Glucose 128 mg/dL (65-95) H 05/11/21 03:20 Arterial Blood Ionized Calcium 4.7 mg/dL (4.6-5.3) 05/11/21 03:20 Urine Color Leticia (Yellow) 04/21/21 Unknown Urine Turbidity Clear (Clear) 04/21/21 Unknown Urine pH 5.0 (5.0-7.0) 04/21/21 Unknown Ur Specific Neche 1.027 (1.003-1.030) 04/21/21 Unknown Urine Protein 100 mg/dl mg/dL (Negative) 04/21/21 Unknown Urine Glucose (UA) Neg mg/dL (Negative) 04/21/21 Unknown Urine Ketones 20 mg/dL (Negative) 04/21/21 Unknown Urine Blood Mod (Negative) 04/21/21 Unknown Urine Nitrite Neg (Negative) 04/21/21 Unknown Urine Bilirubin Neg (Negative) 04/21/21 Unknown Urine Urobilinogen 4.0 mg/dL (<2.0) 04/21/21 Unknown Ur Leukocyte Esterase Neg (Negative) 04/21/21 Unknown Urine WBC (Auto) < 1.0 /HPF (0.0-6.0) 04/21/21 Unknown Urine RBC (Auto) < 1.0 /HPF (0.0-6.0) 04/21/21 Unknown Urine Mucus Few /HPF 04/21/21 Unknown Valproic Acid 10.9 ug/mL (50-100) L 05/04/21 13:28 Coronavirus (PCR) Positive (Negative) A 05/09/21 Unknown Microbiology: Microbiology 05/11/21 02:51 Tracheal Aspirate Sputum Culture - Preliminary Reaves/IV: Voiding Method Indwelling Catheter Active Medications - Current Medications Current Medications: Generic Name Dose Route Start Last Admin Trade Name Freq PRN Reason Stop Dose Admin Acetaminophen 650 mg 04/21/21 22:31 05/08/21 23:18 Acetaminophen 325 Mg Tab PO 650 mg Q4H PRN Administration Pain MILD(1-3)/Fever >100.5/RAY Albuterol 2 puff 05/08/21 08:00 05/11/21 21:29 Albuterol 8.5 Gm Mdi Inhalation IH 05/13/21 07:59 Not Given TIDRT EDDIE Albuterol 2.5 mg 05/09/21 12:00 Albuterol 2.5 Mg/3 Ml Nebu IH Q4HRT PRN Shortness Of Breath Lipase/Protease/Amylase 1 each 05/07/21 13:04 Lipase 10,500/Protease 25,000/Amylase 43,750 (Units) Dr Espinoza FEEDTUBE PRN PRN For Clogged Feeding Tube Enoxaparin Sodium 40 mg 05/11/21 22:00 05/11/21 21:33 Enoxaparin 40 Mg/0.4 Ml Inj SUB-Q 40 mg QDAY@2200 EDDIE Administration Protocol Famotidine 20 mg 04/22/21 10:00 05/12/21 09:29 Famotidine 20 Mg Tab PO 20 mg BID EDDIE Administration Fentanyl 50 mcg 05/11/21 19:33 05/11/21 20:27 Fentanyl 100 Mcg/2 Ml Inj IV 50 mcg Q10MIN PRN Administration ANALGESIA NORepinephrine/NS 8 MG-250 ML 8 mg in 250 mls @ 3.75 mls/hr 05/11/21 02:00 05/12/21 09:35 Norepinephrine/Ns 8 Mg-250 Ml (Double Conc) IV 10 mcg/min TITRATE EDDIE 18.75 mls/hr Administration Protocol 2 MCG/MIN Vasopressin 20 unit/ Sodium 101 mls @ 9.09 mls/hr 05/11/21 04:00 05/12/21 11:47 Chloride IV 0.03 units/min TITR EDDIE 9.09 mls/hr Administration Protocol 0.03 UNITS/MIN Fentanyl Citrate 2,000 mcg in 100 mls @ 2.64 mls/hr 05/11/21 20:00 Fentanyl Drip Premix IV TITR EDDIE Protocol 1 MCG/KG/HR Lorazepam 2 mg 05/11/21 01:43 Lorazepam 2 Mg/Ml Vial IV Q1H PRN Seizures Metoclopramide HCl 10 mg 04/21/21 22:31 Metoclopramide 10 Mg/2 Ml Inj IV Q6H PRN Nausea And Vomiting Metoprolol Tartrate 12.5 mg 05/04/21 22:00 05/12/21 09:28 Metoprolol Tartrate 25 Mg Tab PO Not Given BID [facility] Metoprolol Tartrate 2.5 mg 05/06/21 16:12 05/11/21 15:11 Metoprolol Tartrate 5 Mg/5 Ml Inj IV 2.5 mg Q6HR PRN Administration Tachyarrhythmias Ondansetron HCl 4 mg 04/21/21 22:31 Ondansetron 4 Mg/2 Ml Inj IV Q8H PRN Nausea And Vomiting Senna 17.2 mg 05/11/21 22:00 05/11/21 21:34 Sennosides 8.6 Mg Tab PO 17.2 mg QHS EDDIE Administration Simple Syrup 15 ml 05/07/21 13:04 Simple Syrup 15 Ml FEEDTUBE PRN PRN Hypoglycemia Simple Syrup 30 ml 05/07/21 13:04 Simple Syrup 15 Ml FEEDTUBE PRN PRN Hypoglycemia Sodium Bicarbonate 325 mg 05/07/21 13:04 Sodium Bicarbonate 325 Mg Tab FEEDTUBE PRN PRN For Clogged Feeding Tube Sodium Chloride 10 ml 04/22/21 10:00 05/12/21 09:32 Sodium Chloride 0.9% 10 Ml Flush Syringe IV 10 ml BID EDDIE Administration Sodium Chloride 10 ml 04/21/21 22:31 Sodium Chloride 0.9% 10 Ml Flush Syringe IV PRN PRN LINE FLUSH Valproic Acid 250 mg 05/01/21 22:00 05/11/21 21:33 Valproic Acid 250 Mg/5 Ml Oral Liqd PO 250 mg QHS EDDIE Administration Nutrition/Malnutrition Assess - Dietary Evaluation Nutrition/Malnutrition Findings: Nutrition Notes Start: 04/22/21 18:07 Freq: Status: Active Protocol: Document 05/12/21 13:28 RICKY (Rec: 05/12/21 13:54 RICKY [email or web address]) Nutrition Notes Need for Assessment generated from: Low BMI Initial or Follow up Brief Note Current Diet TF - Nepro w/CARBSTEADY @ 40 ml/hr (since L 05/11). Labs/Tests 05/12: Na 154, Cl 111.4, CO2 34, BUN 41, Crea 0.5, Glu 185, Phos 2.4. Pertinent Medications 05/12: Vasopressin 20 units in 101 ml @ 9.09 ml/hr, others nutritionally unremarkable. Height 6 ft Weight 52.8 kg [place] Body Weight (kg) 80.90 BMI 15.7 Weight change and time frame Discrepancy of 14.7 Kg body weight loss in 1 day reported. Likely a mistake. Weight Status Underweight Subjective/Other Information RD consult for Low BMI assessment. Likely a mistake meassurement, unable to contact RN to corroborate. F/U to check for actual Body Weight and assess accordingly. Pt still on pressors, Na lab still high, and continues on Mechanical ventilation. Percent of energy/protein needs met: Prescribed Nepro w/CARBSTEADY @ 40 ml/hr provides for energy /protein needs (1,728 Kcal/78 g) during LOS, 96% Kcal; 96% AA. #1 Nutrition Diagnosis Inadequate oral intake Diagnosis Progress(for reassessment Continues documentation) Nutrition Intervention Nutrition Support: Nepro w/CARBSTEADY @ 40 ml/hr. Flush: 200 ml water Q 4 hr, or as per MD. Kcal 1,728 Protein (gm) 78 Carbohydrates (gm) 155 Fat (gm) 92 Fluid (mL) 698 Fiber (gm) 12 % RDI: 96% Kcal; 96% AA. Goal #1 Provide at least 75% of energy /protein needs through Enteral Feeding during LOS. Follow-Up By: 05/15/21 Additional Comments Continue monitoring TF tolerance and BM. Check on body weight. <ELIJAH ROBLERO - Last Filed: 05/16/21 12:39> Assessment and Plan Assessment and plan: I saw and evaluated the patient. Discussed with the nurse practitioner and agree with their findings and plan as documented in this note. Hospitalist Physical - Constitutional Vitals: Temp Pulse Resp BP Pulse Ox 97.8 F 96 H 27 H 86/56 96 05/16/21 11:19 05/16/21 08:30 05/16/21 08:00 05/16/21 08:30 05/16/21 10:25 Results - Labs CBC & Chem 7: 05/16/21 04:00 05/16/21 04:00 Labs: Laboratory Last Values WBC 20.8 K/mm3 (4.5-11.0) H 05/16/21 04:00 RBC 2.91 M/mm3 (3.65-5.03) L 05/16/21 04:00 Hgb 8.9 gm/dl (11.8-15.2) L 05/16/21 04:00 Hct 27.5 % (35.5-45.6) L 05/16/21 04:00 MCV 94 fl (84-94) 05/16/21 04:00 MCH 30 pg (28-32) 05/16/21 04:00 MCHC 32 % (32-34) 05/16/21 04:00 RDW 14.7 % (13.2-15.2) 05/16/21 04:00 Plt Count 108 K/mm3 (140-440) L 05/16/21 04:00 Lymph % (Auto) 4.9 % (13.4-35.0) L 05/11/21 02:30 [place] % (Auto) 10.6 % (0.0-7.3) H 05/11/21 02:30 Eos % (Auto) 0.0 % (0.0-4.3) 05/11/21 02:30 Baso % (Auto) 0.5 % (0.0-1.8) 05/11/21 02:30 Lymph # (Auto) 0.6 K/mm3 (1.2-5.4) L 05/11/21 02:30 [place] # (Auto) 1.3 K/mm3 (0.0-0.8) H 05/11/21 02:30 Eos # (Auto) 0.0 K/mm3 (0.0-0.4) 05/11/21 02:30 Baso # (Auto) 0.1 K/mm3 (0.0-0.1) 05/11/21 02:30 Add Manual Diff Complete 05/06/21 07:02 Total Counted 100 05/06/21 07:02 Seg Neutrophils % 84.0 % (40.0-70.0) H 05/11/21 02:30 Seg Neuts % (Manual) 82.0 % (40.0-70.0) H 05/06/21 07:02 Band Neutrophils % 9.0 % 05/06/21 07:02 Lymphocytes % (Manual) 4.0 % (13.4-35.0) L 05/06/21 07:02 Reactive Lymphs % (Man) 0 % 05/06/21 07:02 Monocytes % (Manual) 5.0 % (0.0-7.3) 05/06/21 07:02 Eosinophils % (Manual) 0 % (0.0-4.3) 05/06/21 07:02 Basophils % (Manual) 0 % (0.0-1.8) 05/06/21 07:02 Metamyelocytes % 0 % 05/06/21 07:02 Myelocytes % 0 % 05/06/21 07:02 Promyelocytes % 0 % 05/06/21 07:02 Blast Cells % 0 % 05/06/21 07:02 Nucleated RBC % Not Reportable 05/06/21 07:02 Seg Neutrophils # 10.4 K/mm3 (1.8-7.7) H 05/11/21 02:30 Seg Neutrophils # Man 9.6 K/mm3 (1.8-7.7) H 05/06/21 07:02 Band Neutrophils # 1.1 K/mm3 05/06/21 07:02 Lymphocytes # (Manual) 0.5 K/mm3 (1.2-5.4) L 05/06/21 07:02 Abs React Lymphs (Man) 0.0 K/mm3 05/06/21 07:02 Monocytes # (Manual) 0.6 K/mm3 (0.0-0.8) 05/06/21 07:02 Eosinophils # (Manual) 0.0 K/mm3 (0.0-0.4) 05/06/21 07:02 Basophils # (Manual) 0.0 K/mm3 (0.0-0.1) 05/06/21 07:02 Metamyelocytes # 0.0 K/mm3 05/06/21 07:02 Myelocytes # 0.0 K/mm3 05/06/21 07:02 Promyelocytes # 0.0 K/mm3 05/06/21 07:02 Blast Cells # 0.0 K/mm3 05/06/21 07:02 WBC Morphology Not Reportable 05/06/21 07:02 Hypersegmented Neuts Not Reportable 05/06/21 07:02 Hyposegmented Neuts Not Reportable 05/06/21 07:02 Hypogranular Neuts Not Reportable 05/06/21 07:02 Smudge Cells Not Reportable 05/06/21 07:02 Toxic Granulation Not Reportable 05/06/21 07:02 Toxic Vacuolation Not Reportable 05/06/21 07:02 Dohle Bodies Not Reportable 05/06/21 07:02 Pelger-Huet Anomaly Not Reportable 05/06/21 07:02 Jeannette Rods Not Reportable 05/06/21 07:02 Platelet Estimate Consistent w auto 05/06/21 07:02 Clumped Platelets Not Reportable 05/06/21 07:02 Plt Clumps, EDTA Not Reportable 05/06/21 07:02 Large Platelets Not Reportable 05/06/21 07:02 Giant Platelets Not Reportable 05/06/21 07:02 Platelet Satelliting Not Reportable 05/06/21 07:02 Plt Morphology Comment Not Reportable 05/06/21 07:02 RBC Morphology Normal 05/06/21 07:02 Dimorphic RBCs Not Reportable 05/06/21 07:02 Polychromasia Not Reportable 05/06/21 07:02 Hypochromasia Not Reportable 05/06/21 07:02 Poikilocytosis Not Reportable 05/06/21 07:02 Anisocytosis Not Reportable 05/06/21 07:02 Microcytosis Not Reportable 05/06/21 07:02 Macrocytosis Not Reportable 05/06/21 07:02 Spherocytes Not Reportable 05/06/21 07:02 Pappenheimer Bodies Not Reportable 05/06/21 07:02 Sickle Cells Not Reportable 05/06/21 07:02 Target Cells Not Reportable 05/06/21 07:02 Tear Drop Cells Not Reportable 05/06/21 07:02 Ovalocytes Not Reportable 05/06/21 07:02 Helmet Cells Not Reportable 05/06/21 07:02 [place] Bodies Not Reportable 05/06/21 07:02 [place] Rings Not Reportable 05/06/21 07:02 [place] Cells Not Reportable 05/06/21 07:02 Bite Cells Not Reportable 05/06/21 07:02 Crenated Cell Not Reportable 05/06/21 07:02 Elliptocytes Not Reportable 05/06/21 07:02 Acanthocytes (Spur) Not Reportable 05/06/21 07:02 Rouleaux Not Reportable 05/06/21 07:02 Hemoglobin C Crystals Not Reportable 05/06/21 07:02 Schistocytes Not Reportable 05/06/21 07:02 Malaria parasites Not Reportable 05/06/21 07:02 ESR 60 mm/Hr (0-20) 05/04/21 13:28 Steve Bodies Not Reportable 05/06/21 07:02 Hem Pathologist Commnt No 05/06/21 07:02 PT 14.6 Sec. (12.2-14.9) 05/15/21 05:00 INR 1.03 (0.87-1.13) 05/15/21 05:00 APTT 43.8 Sec. (24.2-36.6) H 05/07/21 07:28 D-Dimer 690.97 ng/mlDDU (0-234) H 04/30/21 06:20 ABG pH 7.514 pH Units (7.350-7.450) H 05/16/21 03:09 POC ABG pCO2 129.5 mmHg (32.0-48.0) H 05/11/21 03:20 ABG pCO2 42.9 mm Hg 05/16/21 03:09 POC ABG pO2 139.1 mmHg (83-108) H 05/11/21 03:20 ABG pO2 66.8 mm Hg (80.0-90.0) L 05/16/21 03:09 POC ABG HCO3 37.8 05/11/21 03:20 ABG HCO3 33.8 mmol/L (20.0-26.0) H 05/16/21 03:09 ABG O2 Saturation 96.2 % (95.0-99.0) 05/16/21 03:09 ABG O2 Content 11.8 (0.0-44) 05/16/21 03:09 POC ABG Base Excess 4.9 05/11/21 03:20 ABG Base Excess 9.9 mmol/L (-2.0-3.0) H 05/16/21 03:09 ABG Hemoglobin 8.9 gm/dl (14.0-18.0) L 05/16/21 03:09 ABG Oxyhemoglobin 98.4 (94-98) H 05/11/21 03:20 ABG Carboxyhemoglobin 1.5 % (0.0-5.0) 05/16/21 03:09 ABG Methemoglobin 0.5 % (0.0-1.5) 05/16/21 03:09 ABG Sodium 154.5 mmol/L (136.0-145.0) H 05/11/21 03:20 ABG Potassium 5.4 mmol/L (3.40-4.50) H 05/11/21 03:20 ABG Chloride 114.0 mmol/L (98-107) H 05/11/21 03:20 ABG Glucose 128 mg/dL (65-95) H 05/11/21 03:20 Oxyhemoglobin 94.2 % (95.0-99.0) L 05/16/21 03:09 Carboxyhemoglobin 0.3 (0.5-1.5) L 05/11/21 03:20 FiO2 30 % 05/16/21 03:09 FiO2 % 100.0 05/11/21 03:20 Sodium 148 mmol/L (137-145) H 05/16/21 04:00 Potassium 3.1 mmol/L (3.6-5.0) L 05/16/21 04:00 Chloride 107.1 mmol/L (98-107) H 05/16/21 04:00 Carbon Dioxide 32 mmol/L (22-30) H 05/16/21 04:00 Anion Gap 12 mmol/L 05/16/21 04:00 BUN 17 mg/dL (9-20) 05/16/21 04:00 Creatinine 0.2 mg/dL (0.8-1.3) L 05/16/21 04:00 Estimated GFR > 60 ml/min 05/16/21 04:00 BUN/Creatinine Ratio 85 % 05/16/21 04:00 Glucose 122 mg/dL (75-100) H 05/16/21 04:00 POC Glucose 103 mg/dL (70-105) 05/16/21 11:10 Lactic Acid 1.20 mmol/L (0.7-2.0) 04/21/21 20:26 Calcium 7.8 mg/dL (8.4-10.2) L 05/16/21 04:00 Phosphorus 3.40 mg/dL (2.5-4.5) D 05/15/21 05:00 Magnesium 1.90 mg/dL (1.7-2.3) 05/15/21 05:00 Ferritin 930.1 ng/mL (30.0-300.0) H 04/30/21 06:20 Total Bilirubin 0.70 mg/dL (0.1-1.2) 04/29/21 04:00 AST 63 units/L (5-40) H 04/29/21 04:00 ALT 37 units/L (7-56) 04/29/21 04:00 Alkaline Phosphatase 58 units/L (35-129) 04/29/21 04:00 Lactate Dehydrogenase 423 units/L (91-180) H 04/30/21 06:20 C-Reactive Protein 15.40 mg/dL (0.00-1.30) H 05/04/21 13:28 Total Protein 5.6 g/dL (6.3-8.2) L 04/29/21 04:00 Albumin 2.4 g/dL (3.9-5) L 04/29/21 04:00 Albumin/Globulin Ratio 0.8 % 04/29/21 04:00 Lipase 7 units/L (13-60) L 04/21/21 16:08 Vitamin B12 1039 pg/mL (211-911) H 04/24/21 07:56 Procalcitonin 0.92 ng/mL (<0.15) 05/05/21 09:30 TSH 1.330 mlU/mL (0.270-4.200) 04/24/21 07:56 Free T4 1.03 ng/dL (0.76-1.46) 04/24/21 07:56 Arterial Blood Glucose 128 mg/dL (65-95) H 05/11/21 03:20 Arterial Blood Ionized Calcium 4.7 mg/dL (4.6-5.3) 05/11/21 03:20 Urine Color Leticia (Yellow) 04/21/21 Unknown Urine Turbidity Clear (Clear) 04/21/21 Unknown Urine pH 5.0 (5.0-7.0) 04/21/21 Unknown Ur Specific Neche 1.027 (1.003-1.030) 04/21/21 Unknown Urine Protein 100 mg/dl mg/dL (Negative) 04/21/21 Unknown Urine Glucose (UA) Neg mg/dL (Negative) 04/21/21 Unknown Urine Ketones 20 mg/dL (Negative) 04/21/21 Unknown Urine Blood Mod (Negative) 04/21/21 Unknown Urine Nitrite Neg (Negative) 04/21/21 Unknown Urine Bilirubin Neg (Negative) 04/21/21 Unknown Urine Urobilinogen 4.0 mg/dL (<2.0) 04/21/21 Unknown Ur Leukocyte Esterase Neg (Negative) 04/21/21 Unknown Urine WBC (Auto) < 1.0 /HPF (0.0-6.0) 04/21/21 Unknown Urine RBC (Auto) < 1.0 /HPF (0.0-6.0) 04/21/21 Unknown Urine Mucus Few /HPF 04/21/21 Unknown Valproic Acid 10.9 ug/mL (50-100) L 05/04/21 13:28 Coronavirus (PCR) Positive (Negative) A 05/09/21 Unknown Reaves/IV: Voiding Method Indwelling Catheter Active Medications - Current Medications Current Medications: Generic Name Dose Route Start Last Admin Trade Name Freq PRN Reason Stop Dose Admin Acetaminophen 650 mg 04/21/21 22:31 05/14/21 07:28 Acetaminophen 325 Mg Tab PO 650 mg Q4H PRN Administration Pain MILD(1-3)/Fever >100.5/RAY Albuterol 2.5 mg 05/09/21 12:00 Albuterol 2.5 Mg/3 Ml Nebu IH Q4HRT PRN Shortness Of Breath Lipase/Protease/Amylase 1 each 05/07/21 13:04 Lipase 10,500/Protease 25,000/Amylase 43,750 (Units) Dr Cap FEEDTUBE PRN PRN For Clogged Feeding Tube Enoxaparin Sodium 40 mg 05/11/21 22:00 05/15/21 21:47 Enoxaparin 40 Mg/0.4 Ml Inj SUB-Q 40 mg QDAY@2200 EDDIE Administration Protocol Famotidine 20 mg 05/13/21 10:00 05/16/21 09:06 Famotidine 20 Mg Tab FEEDTUBE 20 mg BID EDDIE Administration Fentanyl 50 mcg 05/11/21 19:33 05/11/21 20:27 Fentanyl 100 Mcg/2 Ml Inj IV 50 mcg Q10MIN PRN Administration ANALGESIA Hydrocortisone Sodium Succinate 100 mg 05/14/21 12:00 05/16/21 05:05 Hydrocortisone Sod Succ 100 Mg/2 Ml Vial IV 100 mg Q8HR EDDEI Administration NORepinephrine/NS 8 MG-250 ML 8 mg in 250 mls @ 3.75 mls/hr 05/11/21 02:00 00:40 Norepinephrine/Ns 8 Mg-250 Ml (Double Conc) IV 3 mcg/min TITRATE EDDIE 5.625 mls/hr Titration Protocol 2 MCG/MIN Vasopressin 20 unit/ Sodium 101 mls @ 9.09 mls/hr 05/11/21 04:00 05/13/21 08:13 Chloride IV 0 units/min TITR EDDIE 0 mls/hr Titration Protocol 0.03 UNITS/MIN Fentanyl Citrate 2,000 mcg in 100 mls @ 2.64 mls/hr 05/11/21 20:00 Fentanyl Drip Premix IV TITR EDDIE Protocol 1 MCG/KG/HR Dextrose 1,000 mls @ 75 mls/hr 05/15/21 06:00 05/15/21 16:15 D5w IV 75 mls/hr DIRECT EDDIE Administration Lorazepam 2 mg 05/11/21 01:43 Lorazepam 2 Mg/Ml Vial IV Q1H PRN Seizures Metoclopramide HCl 10 mg 04/21/21 22:31 Metoclopramide 10 Mg/2 Ml Inj IV Q6H PRN Nausea And Vomiting Metoprolol Tartrate 2.5 mg 05/06/21 16:12 05/14/21 07:39 Metoprolol Tartrate 5 Mg/5 Ml Inj IV 2.5 mg Q6HR PRN Administration Tachyarrhythmias Ondansetron HCl 4 mg 04/21/21 22:31 Ondansetron 4 Mg/2 Ml Inj IV Q8H PRN Nausea And Vomiting Senna 17.2 mg 05/13/21 22:00 05/15/21 21:47 Sennosides 8.6 Mg Tab FEEDTUBE 17.2 mg QHS EDDIE Administration Simple Syrup 15 ml 05/07/21 13:04 Simple Syrup 15 Ml FEEDTUBE PRN PRN Hypoglycemia Simple Syrup 30 ml 05/07/21 13:04 Simple Syrup 15 Ml FEEDTUBE PRN PRN Hypoglycemia Sodium Bicarbonate 325 mg 05/07/21 13:04 Sodium Bicarbonate 325 Mg Tab FEEDTUBE PRN PRN For Clogged Feeding Tube Sodium Chloride 10 ml 04/22/21 10:00 05/16/21 09:06 Sodium Chloride 0.9% 10 Ml Flush Syringe IV 10 ml BID EDDIE Administration Sodium Chloride 10 ml 04/21/21 22:31 Sodium Chloride 0.9% 10 Ml Flush Syringe IV PRN PRN LINE FLUSH Valproic Acid 250 mg 05/13/21 22:00 05/15/21 21:47 Valproic Acid 250 Mg/5 Ml Oral Liqd FEEDTUBE 250 mg QHS EDDIE Administration Nutrition/Malnutrition Assess - Dietary Evaluation Nutrition/Malnutrition Findings: Nutrition Notes Start: 04/22/21 18:07 Freq: Status: Active Protocol: Document 05/15/21 15:28 GABINO (Rec: 05/15/21 15:35 [facility] [id number]) Nutrition Notes Initial or Follow up Reassessment Current Diagnosis Respiratory Failure Other Pertinent Diagnosis COVID-19 pneu, encephalopathy Current Diet NPO Labs/Tests Na 147 Pertinent Medications D5W at 75ml/hr, Solucortef, Levophed gtt Height 6 ft Weight 53.5 kg [place] Body Weight (kg) 80.90 BMI 16.0 Subjective/Other Information Unable to reach RN to discuss wt discrepancy. TF on hold for trach placement today. Pt remains on vent support. Burn Absent Trauma Absent #1 Nutrition Diagnosis Inadequate oral intake Diagnosis Progress(for reassessment Continues documentation) Is patient on ventilator? Yes Is Patient Ambulatory and/or Out of Bed No REE-([facility]-confined to bed) 1641.108 Kcal/Kg value to use for calculation 34 Approximate Energy Requirements Using 1819 kcal/Kg Calculation Used for Recommendations Kcal/kg Additional Notes Pro needs 1.2-2g/k-107g/ day Fluid needs 1ml/kcal Nutrition Intervention Nutrition Support: When feasible, resume Nepro at 40ml/hr with 200ml water flush q4h Goal #1 Resume TF to meet nutrient needs Follow-Up By: 05/18/21 Additional Comments F/U: TF restart, Na lab/water flushes, vent support
--- NOTE | 2021-05-12 14:59 | Progress Note ---
Assessment and Plan 66 y/o male with altered mental status found to be COVID positive, now with worsening respiratory failure. 05/12/21: Placed consult to surgery for trach and peg as patient's mental state will not allow successful weaning without a secure airway. Continue CPT therapy. CM to reach out to guardian to start working on placement. 05/10/21: Contniue CPT. Called by RT yesterday for changes in breathing pattern but still with good sats. Patient is not a candidate for bipap so next step would be intubation. Asked RT to pass this on to night time staff. Still awaiting to hear from guardianship about hospice as all of their patient's are full code and they will likely not change his code status. Poor prognosis. 05/09/21: Given current clinical state, no improvement in pulmonary status, increased weakness with continued risk for aspiration in the face of COVID 19 pneumonia, I agree that hospice would be a reasonable option for this patient. Not sure what company could take current oxygen demand so if this is pursued it would likely need to be inpatient with plans of comfort and deescalation. Continue CPT and mucomyst nebs. Guarded to poor prognosis. 05/08/21: Continue CPT. Will try mucomyst nebs to see if this helps with sputum expectoration given weak cough. Guarded prognosis. Prone if able. 05/07/21: Continue CPT. Will speak with pharmacy but may need hypertonic saline neb to help induce cough to help expectorate mucous. Ideally should be bronched, but would need to either be intubated or have LMA and doubt GI will allow given COVID positive state. Guarded to poor prognosis. 05/06/21: Please continue CPT multiple times daily. Please document this. Suggest proning patient to help with oxygenation if possible. Guarded prognosis. 05/05/21: Increased CPT to 3-6x daily. Should be done with scheduled albuterol therapy. Please wake patient up for scheduled meds as we are trying to remove mucous and improve oxygenation. Will discuss with RT to pass on to night shit. Prone as much as possible. Daily net negative fluid balance 1. Mucous plug on CTA. Needs CPT but more than daily. Please increase to at least TID 2. Prone as much as possible and sleep prone at night 3. Has already finished steroids 4. Guarded prognosis. CCT 31 minutes. Subjective Date of service: 05/12/21 Principal diagnosis: Encephalopathy,COVID-19 Interval history: CXR looks much better today. oxygenation is better. Still unresponsive on vent. Objective Vital Signs - 12hr 05/12/21 05/12/21 05/12/21 03:00 03:15 03:30 Temperature Pulse Rate 91 H 90 89 Pulse Rate [ From Monitor] Respiratory 24 24 24 Rate Blood Pressure 103/66 108/68 106/66 O2 Sat by Pulse 100 100 100 Oximetry 05/12/21 05/12/21 05/12/21 03:45 04:00 04:15 Temperature 97.7 F Pulse Rate 88 88 87 Pulse Rate [ 105 H From Monitor] Respiratory 24 24 24 Rate Blood Pressure 106/66 108/65 108/66 O2 Sat by Pulse 100 100 100 Oximetry 05/12/21 05/12/21 05/12/21 04:30 04:37 04:45 Temperature Pulse Rate 89 90 94 H Pulse Rate [ From Monitor] Respiratory 24 24 Rate Blood Pressure 111/65 111/65 102/59 O2 Sat by Pulse 100 100 100 Oximetry 05/12/21 05/12/21 05/12/21 05:00 05:16 05:30 Temperature Pulse Rate 87 105 H 95 H Pulse Rate [ From Monitor] Respiratory 24 11 L 23 Rate Blood Pressure 110/67 110/67 95/62 O2 Sat by Pulse 100 100 100 Oximetry 05/12/21 05/12/21 05/12/21 05:45 06:00 06:15 Temperature Pulse Rate 96 H 91 H 93 H Pulse Rate [ From Monitor] Respiratory 24 25 H 24 Rate Blood Pressure 93/59 97/66 96/66 O2 Sat by Pulse 100 100 100 Oximetry 05/12/21 05/12/21 05/12/21 06:30 06:45 07:00 Temperature Pulse Rate 94 H 94 H 96 H Pulse Rate [ From Monitor] Respiratory 24 24 24 Rate Blood Pressure 94/64 98/64 96/63 O2 Sat by Pulse 100 100 100 Oximetry 05/12/21 05/12/21 05/12/21 07:15 07:29 07:30 Temperature Pulse Rate 96 H 101 H 100 H Pulse Rate [ From Monitor] Respiratory 25 H 25 H Rate Blood Pressure 100/66 95/65 95/65 O2 Sat by Pulse 100 100 100 Oximetry 05/12/21 05/12/21 05/12/21 07:45 08:00 08:15 Temperature 97.6 F Pulse Rate 98 H 97 H 95 H Pulse Rate [ 96 H From Monitor] Respiratory 26 H 27 H 26 H Rate Blood Pressure 98/62 100/70 100/65 O2 Sat by Pulse 100 99 100 Oximetry 05/12/21 05/12/21 05/12/21 08:30 08:45 09:00 Temperature Pulse Rate 98 H 98 H 96 H Pulse Rate [ From Monitor] Respiratory 28 H 27 H 27 H Rate Blood Pressure 100/68 104/69 104/66 O2 Sat by Pulse 100 100 100 Oximetry 05/12/21 05/12/21 05/12/21 09:15 09:30 09:45 Temperature Pulse Rate 98 H 99 H 100 H Pulse Rate [ From Monitor] Respiratory 26 H 26 H 26 H Rate Blood Pressure 105/71 99/66 98/65 O2 Sat by Pulse 100 100 100 Oximetry 05/12/21 05/12/21 05/12/21 10:00 10:15 10:30 Temperature Pulse Rate 100 H 101 H 101 H Pulse Rate [ From Monitor] Respiratory 25 H 25 H 26 H Rate Blood Pressure 101/68 94/66 97/66 O2 Sat by Pulse 100 100 100 Oximetry 05/12/21 05/12/21 05/12/21 10:45 11:00 11:15 Temperature Pulse Rate 104 H 96 H 97 H Pulse Rate [ From Monitor] Respiratory 27 H 25 H 26 H Rate Blood Pressure 97/66 103/64 100/62 O2 Sat by Pulse 100 100 100 Oximetry 05/12/21 05/12/21 05/12/21 11:30 11:45 12:00 Temperature 97.8 F Pulse Rate 98 H 99 H 96 H Pulse Rate [ 95 H From Monitor] Respiratory 26 H 27 H 26 H Rate Blood Pressure 92/59 92/59 98/68 O2 Sat by Pulse 100 100 99 Oximetry 05/12/21 05/12/21 05/12/21 12:15 12:30 12:45 Temperature Pulse Rate 96 H 93 H 94 H Pulse Rate [ From Monitor] Respiratory 25 H 25 H 26 H Rate Blood Pressure 104/68 103/65 99/66 O2 Sat by Pulse 98 99 99 Oximetry 05/12/21 05/12/21 05/12/21 13:00 13:15 13:30 Temperature Pulse Rate 93 H 93 H 93 H Pulse Rate [ From Monitor] Respiratory 25 H 24 25 H Rate Blood Pressure 105/64 105/69 100/67 O2 Sat by Pulse 98 99 99 Oximetry 05/12/21 05/12/21 13:45 14:00 Temperature Pulse Rate 94 H 95 H Pulse Rate [ From Monitor] Respiratory 25 H 25 H Rate Blood Pressure 97/65 97/65 O2 Sat by Pulse 99 99 Oximetry Constitutional: other (on nrb mask sat 100%, opens eyes to tactile stimuli, doesnt follow command ) ENT: oropharynx moist, oropharynx dry Ascultation: Bilateral: rhonchi (sl better) Cardiovascular: regular rate and rhythm, PVC's noted Gastrointestinal: normoactive bowel sounds Integumentary: normal CBC and BMP: 05/12/21 05:56 05/12/21 05:56 ABG, PT/INR, D-dimer: ABG ABG pH 7.360 pH Units (7.350-7.450) 05/12/21 05:27 POC ABG pCO2 129.5 mmHg (32.0-48.0) H 05/11/21 03:20 ABG pCO2 66.7 mm Hg 05/12/21 05:27 POC ABG pO2 139.1 mmHg (83-108) H 05/11/21 03:20 ABG pO2 107.6 mm Hg (80.0-90.0) H 05/12/21 05:27 POC ABG HCO3 37.8 05/11/21 03:20 ABG O2 Saturation 97.5 % (95.0-99.0) 05/12/21 05:27 PT/INR, D-dimer PT 16.0 Sec. (12.2-14.9) H 05/07/21 07:28 INR 1.16 (0.87-1.13) H 05/07/21 07:28 D-Dimer 690.97 ng/mlDDU (0-234) H 04/30/21 06:20 Abnormal lab findings: Abnormal Labs 04/21/21 04/21/21 04/22/21 16:08 16:08 00:20 WBC RBC Hgb Hct MCV 96 H MCH MCHC RDW Lymph % (Auto) 8.5 L [place] % (Auto) 15.8 H Lymph # (Auto) 0.9 L [place] # (Auto) 1.7 H Seg Neutrophils % 75.6 H Seg Neuts % (Manual) Lymphocytes % (Manual) Monocytes % (Manual) Seg Neutrophils # 8.0 H Seg Neutrophils # Man Lymphocytes # (Manual) Monocytes # (Manual) PT INR APTT D-Dimer 621.94 H ABG pH POC ABG pCO2 POC ABG pO2 ABG pO2 ABG HCO3 ABG Base Excess ABG Hemoglobin ABG Oxyhemoglobin ABG Sodium ABG Potassium ABG Chloride ABG Glucose Carboxyhemoglobin Sodium Potassium Chloride Carbon Dioxide BUN Creatinine 0.6 L Glucose 107 H POC Glucose Calcium 8.3 L Phosphorus Ferritin AST 136 H Lactate Dehydrogenase C-Reactive Protein Total Protein 6.2 L Albumin 3.0 L Lipase 7 L Vitamin B12 Arterial Blood Glucose Valproic Acid Coronavirus (PCR) 04/22/21 04/22/21 04/22/21 00:20 00:20 06:51 WBC RBC Hgb Hct MCV 95 H MCH MCHC RDW Lymph % (Auto) [place] % (Auto) Lymph # (Auto) [place] # (Auto) Seg Neutrophils % Seg Neuts % (Manual) 91.0 H Lymphocytes % (Manual) 1.0 L Monocytes % (Manual) Seg Neutrophils # Seg Neutrophils # Man Lymphocytes # (Manual) 0.1 L Monocytes # (Manual) PT INR APTT D-Dimer ABG pH POC ABG pCO2 POC ABG pO2 ABG pO2 ABG HCO3 ABG Base Excess ABG Hemoglobin ABG Oxyhemoglobin ABG Sodium ABG Potassium ABG Chloride ABG Glucose Carboxyhemoglobin Sodium Potassium Chloride Carbon Dioxide BUN Creatinine Glucose POC Glucose Calcium Phosphorus Ferritin 427.3 H AST Lactate Dehydrogenase 379 H C-Reactive Protein 9.20 H Total Protein Albumin Lipase Vitamin B12 Arterial Blood Glucose Valproic Acid Coronavirus (PCR) 04/22/21 04/22/21 04/23/21 06:51 Unknown 09:24 WBC RBC Hgb Hct MCV 96 H MCH MCHC RDW Lymph % (Auto) 5.9 L [place] % (Auto) 9.3 H Lymph # (Auto) 0.5 L [place] # (Auto) Seg Neutrophils % 84.8 H Seg Neuts % (Manual) Lymphocytes % (Manual) Monocytes % (Manual) Seg Neutrophils # Seg Neutrophils # Man Lymphocytes # (Manual) Monocytes # (Manual) PT INR APTT D-Dimer ABG pH POC ABG pCO2 POC ABG pO2 ABG pO2 ABG HCO3 ABG Base Excess ABG Hemoglobin ABG Oxyhemoglobin ABG Sodium ABG Potassium ABG Chloride ABG Glucose Carboxyhemoglobin Sodium Potassium Chloride Carbon Dioxide BUN Creatinine 0.4 L Glucose 114 H POC Glucose Calcium 8.0 L Phosphorus Ferritin AST 116 H Lactate Dehydrogenase C-Reactive Protein Total Protein 5.9 L Albumin 3.0 L Lipase Vitamin B12 Arterial Blood Glucose Valproic Acid Coronavirus (PCR) Positive A 04/23/21 04/23/21 04/24/21 09:24 22:38 07:56 WBC RBC Hgb Hct MCV MCH MCHC RDW Lymph % (Auto) [place] % (Auto) Lymph # (Auto) [place] # (Auto) Seg Neutrophils % Seg Neuts % (Manual) Lymphocytes % (Manual) Monocytes % (Manual) Seg Neutrophils # Seg Neutrophils # Man Lymphocytes # (Manual) Monocytes # (Manual) PT INR APTT D-Dimer ABG pH POC ABG pCO2 POC ABG pO2 ABG pO2 ABG HCO3 ABG Base Excess ABG Hemoglobin ABG Oxyhemoglobin ABG Sodium ABG Potassium ABG Chloride ABG Glucose Carboxyhemoglobin Sodium Potassium 3.5 L Chloride Carbon Dioxide BUN Creatinine 0.5 L Glucose 102 H POC Glucose 111 H Calcium 8.3 L Phosphorus 2.30 L Ferritin AST Lactate Dehydrogenase C-Reactive Protein Total Protein Albumin Lipase Vitamin B12 1039 H Arterial Blood Glucose Valproic Acid Coronavirus (PCR) 04/24/21 04/24/21 04/24/21 07:56 07:56 21:37 WBC RBC Hgb Hct MCV 95 H MCH MCHC RDW Lymph % (Auto) [place] % (Auto) Lymph # (Auto) [place] # (Auto) Seg Neutrophils % Seg Neuts % (Manual) 80.0 H Lymphocytes % (Manual) 10.0 L Monocytes % (Manual) 10.0 H Seg Neutrophils # Seg Neutrophils # Man Lymphocytes # (Manual) 0.7 L Monocytes # (Manual) PT INR APTT D-Dimer ABG pH POC ABG pCO2 POC ABG pO2 ABG pO2 ABG HCO3 ABG Base Excess ABG Hemoglobin ABG Oxyhemoglobin ABG Sodium ABG Potassium ABG Chloride ABG Glucose Carboxyhemoglobin Sodium Potassium Chloride Carbon Dioxide BUN Creatinine 0.4 L Glucose POC Glucose 111 H Calcium Phosphorus Ferritin AST Lactate Dehydrogenase C-Reactive Protein Total Protein Albumin Lipase Vitamin B12 Arterial Blood Glucose Valproic Acid Coronavirus (PCR) 04/25/21 04/25/2104/25/22 06:24 06:24 23:13 WBC RBC Hgb Hct 46.6 H MCV MCH MCHC RDW Lymph % (Auto) [place] % (Auto) Lymph # (Auto) [place] # (Auto) Seg Neutrophils % Seg Neuts % (Manual) 83.0 H Lymphocytes % (Manual) 1.0 L Monocytes % (Manual) 9.0 H Seg Neutrophils # Seg Neutrophils # Man Lymphocytes # (Manual) 0.1 L Monocytes # (Manual) PT INR APTT D-Dimer ABG pH POC ABG pCO2 POC ABG pO2 ABG pO2 ABG HCO3 ABG Base Excess ABG Hemoglobin ABG Oxyhemoglobin ABG Sodium ABG Potassium ABG Chloride ABG Glucose Carboxyhemoglobin Sodium 136 L 134 L Potassium 3.3 L Chloride Carbon Dioxide 21 L BUN Creatinine 0.3 L 0.4 L Glucose 115 H POC Glucose Calcium 7.7 L Phosphorus Ferritin AST 104 H Lactate Dehydrogenase C-Reactive Protein Total Protein 6.1 L Albumin 2.6 L Lipase Vitamin B12 Arterial Blood Glucose Valproic Acid Coronavirus (PCR) 04/26/21 04/27/21 04/27/21 06:29 06:31 06:31 WBC 17.6 H RBC Hgb Hct MCV MCH MCHC RDW Lymph % (Auto) [place] % (Auto) Lymph # (Auto) [place] # (Auto) Seg Neutrophils % Seg Neuts % (Manual) 87.0 H Lymphocytes % (Manual) 5.0 L Monocytes % (Manual) Seg Neutrophils # Seg Neutrophils # Man 15.3 H Lymphocytes # (Manual) 0.9 L Monocytes # (Manual) 0.9 H PT INR APTT D-Dimer ABG pH POC ABG pCO2 POC ABG pO2 ABG pO2 ABG HCO3 ABG Base Excess ABG Hemoglobin ABG Oxyhemoglobin ABG Sodium ABG Potassium ABG Chloride ABG Glucose Carboxyhemoglobin Sodium Potassium 3.4 L Chloride Carbon Dioxide BUN Creatinine 0.5 L 0.4 L Glucose 112 H 106 H POC Glucose Calcium 8.0 L Phosphorus Ferritin AST 114 H 110 H Lactate Dehydrogenase C-Reactive Protein Total Protein 6.2 L Albumin 2.9 L 2.6 L Lipase Vitamin B12 Arterial Blood Glucose Valproic Acid Coronavirus (PCR) 04/28/21 04/28/21 04/29/21 08:03 08:03 04:00 WBC 19.8 H 14.0 H RBC Hgb Hct MCV 95 H MCH MCHC RDW Lymph % (Auto) [place] % (Auto) Lymph # (Auto) [place] # (Auto) Seg Neutrophils % Seg Neuts % (Manual) 94.0 H Lymphocytes % (Manual) 1.0 L Monocytes % (Manual) Seg Neutrophils # Seg Neutrophils # Man 18.6 H Lymphocytes # (Manual) 0.2 L Monocytes # (Manual) PT INR APTT D-Dimer ABG pH POC ABG pCO2 POC ABG pO2 ABG pO2 ABG HCO3 ABG Base Excess ABG Hemoglobin ABG Oxyhemoglobin ABG Sodium ABG Potassium ABG Chloride ABG Glucose Carboxyhemoglobin Sodium Potassium Chloride Carbon Dioxide BUN Creatinine 0.2 L Glucose 107 H POC Glucose Calcium 8.1 L Phosphorus Ferritin AST 87 H Lactate Dehydrogenase C-Reactive Protein Total Protein 5.1 L Albumin 2.4 L Lipase Vitamin B12 Arterial Blood Glucose Valproic Acid Coronavirus (PCR) 04/29/21 04/30/21 04/30/21 04:00 06:20 06:20 WBC RBC Hgb Hct MCV MCH MCHC RDW Lymph % (Auto) [place] % (Auto) Lymph # (Auto) [place] # (Auto) Seg Neutrophils % Seg Neuts % (Manual) Lymphocytes % (Manual) Monocytes % (Manual) Seg Neutrophils # Seg Neutrophils # Man Lymphocytes # (Manual) Monocytes # (Manual) PT INR APTT D-Dimer 690.97 H ABG pH POC ABG pCO2 POC ABG pO2 ABG pO2 ABG HCO3 ABG Base Excess ABG Hemoglobin ABG Oxyhemoglobin ABG Sodium ABG Potassium ABG Chloride ABG Glucose Carboxyhemoglobin Sodium 148 H Potassium 3.0 L Chloride 110.2 H Carbon Dioxide BUN Creatinine 0.2 L Glucose 130 H POC Glucose Calcium Phosphorus Ferritin 930.1 H AST 63 H Lactate Dehydrogenase C-Reactive Protein Total Protein 5.6 L Albumin 2.4 L Lipase Vitamin B12 Arterial Blood Glucose Valproic Acid Coronavirus (PCR) 04/30/21 04/30/21 04/30/21 06:20 08:01 08:41 WBC RBC Hgb Hct MCV MCH MCHC RDW Lymph % (Auto) [place] % (Auto) Lymph # (Auto) [place] # (Auto) Seg Neutrophils % Seg Neuts % (Manual) Lymphocytes % (Manual) Monocytes % (Manual) Seg Neutrophils # Seg Neutrophils # Man Lymphocytes # (Manual) Monocytes # (Manual) PT INR APTT D-Dimer ABG pH POC ABG pCO2 POC ABG pO2 ABG pO2 ABG HCO3 ABG Base Excess ABG Hemoglobin ABG Oxyhemoglobin ABG Sodium ABG Potassium ABG Chloride ABG Glucose Carboxyhemoglobin Sodium 151 H Potassium 3.3 L Chloride 110.3 H Carbon Dioxide BUN Creatinine 0.3 L Glucose 119 H POC Glucose 119 H Calcium Phosphorus Ferritin AST Lactate Dehydrogenase 423 H C-Reactive Protein 8.90 H Total Protein Albumin Lipase Vitamin B12 Arterial Blood Glucose Valproic Acid Coronavirus (PCR) 04/30/21 05/01/21 05/01/21 11:14 07:29 07:29 WBC 21.4 H RBC Hgb Hct MCV MCH MCHC RDW Lymph % (Auto) [place] % (Auto) Lymph # (Auto) [place] # (Auto) Seg Neutrophils % Seg Neuts % (Manual) Lymphocytes % (Manual) Monocytes % (Manual) Seg Neutrophils # Seg Neutrophils # Man Lymphocytes # (Manual) Monocytes # (Manual) PT INR APTT D-Dimer ABG pH POC ABG pCO2 POC ABG pO2 ABG pO2 ABG HCO3 ABG Base Excess ABG Hemoglobin ABG Oxyhemoglobin ABG Sodium ABG Potassium ABG Chloride ABG Glucose Carboxyhemoglobin Sodium 150 H Potassium 2.7 L* Chloride 111.2 H Carbon Dioxide BUN Creatinine 0.3 L Glucose 162 H POC Glucose 113 H Calcium Phosphorus Ferritin AST Lactate Dehydrogenase C-Reactive Protein Total Protein Albumin Lipase Vitamin B12 Arterial Blood Glucose Valproic Acid Coronavirus (PCR) 05/01/21 05/01/21 05/01/21 07:33 11:28 17:54 WBC RBC Hgb Hct MCV MCH MCHC RDW Lymph % (Auto) [place] % (Auto) Lymph # (Auto) [place] # (Auto) Seg Neutrophils % Seg Neuts % (Manual) Lymphocytes % (Manual) Monocytes % (Manual) Seg Neutrophils # Seg Neutrophils # Man Lymphocytes # (Manual) Monocytes # (Manual) PT INR APTT D-Dimer ABG pH POC ABG pCO2 POC ABG pO2 ABG pO2 ABG HCO3 ABG Base Excess ABG Hemoglobin ABG Oxyhemoglobin ABG Sodium ABG Potassium ABG Chloride ABG Glucose Carboxyhemoglobin Sodium Potassium Chloride Carbon Dioxide BUN Creatinine Glucose POC Glucose 147 H 152 H 165 H Calcium Phosphorus Ferritin AST Lactate Dehydrogenase C-Reactive Protein Total Protein Albumin Lipase Vitamin B12 Arterial Blood Glucose Valproic Acid Coronavirus (PCR) 05/02/21 05/02/21 05/02/21 00:23 05:28 05:28 WBC 18.9 H RBC Hgb Hct MCV 95 H MCH MCHC 31 L RDW Lymph % (Auto) [place] % (Auto) Lymph # (Auto) [place] # (Auto) Seg Neutrophils % Seg Neuts % (Manual) Lymphocytes % (Manual) Monocytes % (Manual) Seg Neutrophils # Seg Neutrophils # Man Lymphocytes # (Manual) Monocytes # (Manual) PT INR APTT D-Dimer ABG pH POC ABG pCO2 POC ABG pO2 ABG pO2 ABG HCO3 ABG Base Excess ABG Hemoglobin ABG Oxyhemoglobin ABG Sodium ABG Potassium ABG Chloride ABG Glucose Carboxyhemoglobin Sodium 151 H Potassium Chloride 111.4 H Carbon Dioxide BUN Creatinine 0.3 L Glucose 132 H POC Glucose 160 H Calcium 8.3 L Phosphorus Ferritin AST Lactate Dehydrogenase C-Reactive Protein Total Protein Albumin Lipase Vitamin B12 Arterial Blood Glucose Valproic Acid Coronavirus (PCR) 05/02/21 05/02/21 05/02/21 07:42 11:31 16:39 WBC RBC Hgb Hct MCV MCH MCHC RDW Lymph % (Auto) [place] % (Auto) Lymph # (Auto) [place] # (Auto) Seg Neutrophils % Seg Neuts % (Manual) Lymphocytes % (Manual) Monocytes % (Manual) Seg Neutrophils # Seg Neutrophils # Man Lymphocytes # (Manual) Monocytes # (Manual) PT INR APTT D-Dimer ABG pH POC ABG pCO2 POC ABG pO2 ABG pO2 ABG HCO3 ABG Base Excess ABG Hemoglobin ABG Oxyhemoglobin ABG Sodium ABG Potassium ABG Chloride ABG Glucose Carboxyhemoglobin Sodium Potassium Chloride Carbon Dioxide BUN Creatinine Glucose POC Glucose 170 H 131 H 140 H Calcium Phosphorus Ferritin AST Lactate Dehydrogenase C-Reactive Protein Total Protein Albumin Lipase Vitamin B12 Arterial Blood Glucose Valproic Acid Coronavirus (PCR) 05/02/21 05/03/21 05/03/21 22:42 06:11 09:20 WBC 16.2 H RBC 3.51 L Hgb 10.5 L Hct 33.1 L MCV MCH MCHC RDW 15.4 H Lymph % (Auto) [place] % (Auto) Lymph # (Auto) [place] # (Auto) Seg Neutrophils % Seg Neuts % (Manual) Lymphocytes % (Manual) Monocytes % (Manual) Seg Neutrophils # Seg Neutrophils # Man Lymphocytes # (Manual) Monocytes # (Manual) PT INR APTT D-Dimer ABG pH POC ABG pCO2 POC ABG pO2 ABG pO2 ABG HCO3 ABG Base Excess ABG Hemoglobin ABG Oxyhemoglobin ABG Sodium ABG Potassium ABG Chloride ABG Glucose Carboxyhemoglobin Sodium Potassium Chloride Carbon Dioxide BUN Creatinine Glucose POC Glucose 107 H 108 H Calcium Phosphorus Ferritin AST Lactate Dehydrogenase C-Reactive Protein Total Protein Albumin Lipase Vitamin B12 Arterial Blood Glucose Valproic Acid Coronavirus (PCR) 05/03/21 05/03/21 05/03/21 09:20 11:01 17:33 WBC RBC Hgb Hct MCV MCH MCHC RDW Lymph % (Auto) [place] % (Auto) Lymph # (Auto) [place] # (Auto) Seg Neutrophils % Seg Neuts % (Manual) Lymphocytes % (Manual) Monocytes % (Manual) Seg Neutrophils # Seg Neutrophils # Man Lymphocytes # (Manual) Monocytes # (Manual) PT INR APTT D-Dimer ABG pH POC ABG pCO2 POC ABG pO2 ABG pO2 ABG HCO3 ABG Base Excess ABG Hemoglobin ABG Oxyhemoglobin ABG Sodium ABG Potassium ABG Chloride ABG Glucose Carboxyhemoglobin Sodium 149 H Potassium 3.5 L Chloride 110.0 H Carbon Dioxide BUN Creatinine 0.3 L Glucose 113 H POC Glucose 146 H 118 H Calcium 8.0 L Phosphorus Ferritin AST Lactate Dehydrogenase C-Reactive Protein Total Protein Albumin Lipase Vitamin B12 Arterial Blood Glucose Valproic Acid Coronavirus (PCR) 05/04/21 05/04/21 05/04/21 05:51 13:28 13:28 WBC RBC Hgb Hct MCV MCH MCHC RDW Lymph % (Auto) [place] % (Auto) Lymph # (Auto) [place] # (Auto) Seg Neutrophils % Seg Neuts % (Manual) Lymphocytes % (Manual) Monocytes % (Manual) Seg Neutrophils # Seg Neutrophils # Man Lymphocytes # (Manual) Monocytes # (Manual) PT INR APTT D-Dimer ABG pH POC ABG pCO2 POC ABG pO2 ABG pO2 ABG HCO3 ABG Base Excess ABG Hemoglobin ABG Oxyhemoglobin ABG Sodium ABG Potassium ABG Chloride ABG Glucose Carboxyhemoglobin Sodium Potassium Chloride Carbon Dioxide BUN Creatinine Glucose POC Glucose 143 H Calcium Phosphorus Ferritin AST Lactate Dehydrogenase C-Reactive Protein 15.40 H Total Protein Albumin Lipase Vitamin B12 Arterial Blood Glucose Valproic Acid 10.9 L Coronavirus (PCR) 05/04/21 05/04/21 05/05/21 17:30 23:53 11:23 WBC RBC Hgb Hct MCV MCH MCHC RDW Lymph % (Auto) [place] % (Auto) Lymph # (Auto) [place] # (Auto) Seg Neutrophils % Seg Neuts % (Manual) Lymphocytes % (Manual) Monocytes % (Manual) Seg Neutrophils # Seg Neutrophils # Man Lymphocytes # (Manual) Monocytes # (Manual) PT INR APTT D-Dimer ABG pH POC ABG pCO2 POC ABG pO2 ABG pO2 ABG HCO3 ABG Base Excess ABG Hemoglobin ABG Oxyhemoglobin ABG Sodium ABG Potassium ABG Chloride ABG Glucose Carboxyhemoglobin Sodium Potassium Chloride Carbon Dioxide BUN Creatinine Glucose POC Glucose 110 H 128 H 121 H Calcium Phosphorus Ferritin AST Lactate Dehydrogenase C-Reactive Protein Total Protein Albumin Lipase Vitamin B12 Arterial Blood Glucose Valproic Acid Coronavirus (PCR) 05/05/21 05/05/21 05/06/21 16:26 21:24 07:02 WBC 11.7 H RBC Hgb Hct MCV 99 H MCH 33 H MCHC RDW 15.5 H Lymph % (Auto) [place] % (Auto) Lymph # (Auto) [place] # (Auto) Seg Neutrophils % Seg Neuts % (Manual) 82.0 H Lymphocytes % (Manual) 4.0 L Monocytes % (Manual) Seg Neutrophils # Seg Neutrophils # Man 9.6 H Lymphocytes # (Manual) 0.5 L Monocytes # (Manual) PT INR APTT D-Dimer ABG pH POC ABG pCO2 POC ABG pO2 ABG pO2 ABG HCO3 ABG Base Excess ABG Hemoglobin ABG Oxyhemoglobin ABG Sodium ABG Potassium ABG Chloride ABG Glucose Carboxyhemoglobin Sodium Potassium Chloride Carbon Dioxide BUN Creatinine Glucose POC Glucose 113 H 130 H Calcium Phosphorus Ferritin AST Lactate Dehydrogenase C-Reactive Protein Total Protein Albumin Lipase Vitamin B12 Arterial Blood Glucose Valproic Acid Coronavirus (PCR) 05/07/21 05/07/21 05/07/21 05:00 07:28 21:34 WBC RBC Hgb Hct MCV MCH MCHC RDW Lymph % (Auto) [place] % (Auto) Lymph # (Auto) [place] # (Auto) Seg Neutrophils % Seg Neuts % (Manual) Lymphocytes % (Manual) Monocytes % (Manual) Seg Neutrophils # Seg Neutrophils # Man Lymphocytes # (Manual) Monocytes # (Manual) PT 16.0 H INR 1.16 H APTT 43.8 H D-Dimer ABG pH POC ABG pCO2 POC ABG pO2 ABG pO2 ABG HCO3 ABG Base Excess ABG Hemoglobin ABG Oxyhemoglobin ABG Sodium ABG Potassium ABG Chloride ABG Glucose Carboxyhemoglobin Sodium Potassium Chloride Carbon Dioxide BUN Creatinine Glucose POC Glucose 112 H 123 H Calcium Phosphorus Ferritin AST Lactate Dehydrogenase C-Reactive Protein Total Protein Albumin Lipase Vitamin B12 Arterial Blood Glucose Valproic Acid Coronavirus (PCR) 05/08/21 05/08/21 05/08/21 08:11 12:04 16:37 WBC RBC Hgb Hct MCV MCH MCHC RDW Lymph % (Auto) [place] % (Auto) Lymph # (Auto) [place] # (Auto) Seg Neutrophils % Seg Neuts % (Manual) Lymphocytes % (Manual) Monocytes % (Manual) Seg Neutrophils # Seg Neutrophils # Man Lymphocytes # (Manual) Monocytes # (Manual) PT INR APTT D-Dimer ABG pH POC ABG pCO2 POC ABG pO2 ABG pO2 ABG HCO3 ABG Base Excess ABG Hemoglobin ABG Oxyhemoglobin ABG Sodium ABG Potassium ABG Chloride ABG Glucose Carboxyhemoglobin Sodium Potassium Chloride Carbon Dioxide BUN Creatinine Glucose POC Glucose 158 H 117 H 118 H Calcium Phosphorus Ferritin AST Lactate Dehydrogenase C-Reactive Protein Total Protein Albumin Lipase Vitamin B12 Arterial Blood Glucose Valproic Acid Coronavirus (PCR) 05/09/21 05/09/21 05/09/21 04:56 12:04 17:14 WBC RBC Hgb Hct MCV MCH MCHC RDW Lymph % (Auto) [place] % (Auto) Lymph # (Auto) [place] # (Auto) Seg Neutrophils % Seg Neuts % (Manual) Lymphocytes % (Manual) Monocytes % (Manual) Seg Neutrophils # Seg Neutrophils # Man Lymphocytes # (Manual) Monocytes # (Manual) PT INR APTT D-Dimer ABG pH POC ABG pCO2 POC ABG pO2 ABG pO2 ABG HCO3 ABG Base Excess ABG Hemoglobin ABG Oxyhemoglobin ABG Sodium ABG Potassium ABG Chloride ABG Glucose Carboxyhemoglobin Sodium Potassium Chloride Carbon Dioxide BUN Creatinine Glucose POC Glucose 113 H 107 H 163 H Calcium Phosphorus Ferritin AST Lactate Dehydrogenase C-Reactive Protein Total Protein Albumin Lipase Vitamin B12 Arterial Blood Glucose Valproic Acid Coronavirus (PCR) 05/09/21 05/09/21 05/10/21 21:02 Unknown 12:00 WBC RBC Hgb Hct MCV MCH MCHC RDW Lymph % (Auto) [place] % (Auto) Lymph # (Auto) [place] # (Auto) Seg Neutrophils % Seg Neuts % (Manual) Lymphocytes % (Manual) Monocytes % (Manual) Seg Neutrophils # Seg Neutrophils # Man Lymphocytes # (Manual) Monocytes # (Manual) PT INR APTT D-Dimer ABG pH POC ABG pCO2 POC ABG pO2 ABG pO2 ABG HCO3 ABG Base Excess ABG Hemoglobin ABG Oxyhemoglobin ABG Sodium ABG Potassium ABG Chloride ABG Glucose Carboxyhemoglobin Sodium Potassium Chloride Carbon Dioxide BUN Creatinine Glucose POC Glucose 139 H 132 H Calcium Phosphorus Ferritin AST Lactate Dehydrogenase C-Reactive Protein Total Protein Albumin Lipase Vitamin B12 Arterial Blood Glucose Valproic Acid Coronavirus (PCR) Positive A 05/10/21 05/10/21 05/11/21 17:36 20:37 01:46 WBC RBC Hgb Hct MCV MCH MCHC RDW Lymph % (Auto) [place] % (Auto) Lymph # (Auto) [place] # (Auto) Seg Neutrophils % Seg Neuts % (Manual) Lymphocytes % (Manual) Monocytes % (Manual) Seg Neutrophils # Seg Neutrophils # Man Lymphocytes # (Manual) Monocytes # (Manual) PT INR APTT D-Dimer ABG pH POC ABG pCO2 POC ABG pO2 ABG pO2 ABG HCO3 ABG Base Excess ABG Hemoglobin ABG Oxyhemoglobin ABG Sodium ABG Potassium ABG Chloride ABG Glucose Carboxyhemoglobin Sodium Potassium Chloride Carbon Dioxide BUN Creatinine Glucose POC Glucose 120 H 125 H 118 H Calcium Phosphorus Ferritin AST Lactate Dehydrogenase C-Reactive Protein Total Protein Albumin Lipase Vitamin B12 Arterial Blood Glucose Valproic Acid Coronavirus (PCR) 05/11/21 05/11/21 05/11/21 02:30 02:30 03:20 WBC 12.3 H RBC 3.22 L Hgb 9.6 L Hct 33.3 L MCV 103 H MCH MCHC 29 L RDW 16.6 H Lymph % (Auto) 4.9 L [place] % (Auto) 10.6 H Lymph # (Auto) 0.6 L [place] # (Auto) 1.3 H Seg Neutrophils % 84.0 H Seg Neuts % (Manual) Lymphocytes % (Manual) Monocytes % (Manual) Seg Neutrophils # 10.4 H Seg Neutrophils # Man Lymphocytes # (Manual) Monocytes # (Manual) PT INR APTT D-Dimer ABG pH 7.083 L POC ABG pCO2 129.5 H POC ABG pO2 139.1 H ABG pO2 ABG HCO3 ABG Base Excess ABG Hemoglobin 10.6 L ABG Oxyhemoglobin 98.4 H ABG Sodium 154.5 H ABG Potassium 5.4 H ABG Chloride 114.0 H ABG Glucose 128 H Carboxyhemoglobin 0.3 L Sodium 159 H Potassium 6.6 H* Chloride 116.6 H Carbon Dioxide 35 H BUN 41 H Creatinine Glucose 139 H POC Glucose Calcium 8.2 L Phosphorus Ferritin AST Lactate Dehydrogenase C-Reactive Protein Total Protein Albumin Lipase Vitamin B12 Arterial Blood Glucose 128 H Valproic Acid Coronavirus (PCR) 05/11/21 05/11/21 05/11/21 05:45 10:30 11:30 WBC RBC Hgb Hct MCV MCH MCHC RDW Lymph % (Auto) [place] % (Auto) Lymph # (Auto) [place] # (Auto) Seg Neutrophils % Seg Neuts % (Manual) Lymphocytes % (Manual) Monocytes % (Manual) Seg Neutrophils # Seg Neutrophils # Man Lymphocytes # (Manual) Monocytes # (Manual) PT INR APTT D-Dimer ABG pH POC ABG pCO2 POC ABG pO2 ABG pO2 ABG HCO3 ABG Base Excess ABG Hemoglobin ABG Oxyhemoglobin ABG Sodium ABG Potassium ABG Chloride ABG Glucose Carboxyhemoglobin Sodium 161 H* Potassium Chloride 117.5 H Carbon Dioxide 37 H BUN 40 H Creatinine 0.7 L Glucose 155 H POC Glucose 112 H 141 H Calcium Phosphorus 2.10 L Ferritin AST Lactate Dehydrogenase C-Reactive Protein Total Protein Albumin Lipase Vitamin B12 Arterial Blood Glucose Valproic Acid Coronavirus (PCR) 05/11/21 05/11/21 05/11/21 15:59 16:40 23:21 WBC RBC Hgb Hct MCV MCH MCHC RDW Lymph % (Auto) [place] % (Auto) Lymph # (Auto) [place] # (Auto) Seg Neutrophils % Seg Neuts % (Manual) Lymphocytes % (Manual) Monocytes % (Manual) Seg Neutrophils # Seg Neutrophils # Man Lymphocytes # (Manual) Monocytes # (Manual) PT INR APTT D-Dimer ABG pH POC ABG pCO2 POC ABG pO2 ABG pO2 ABG HCO3 ABG Base Excess ABG Hemoglobin ABG Oxyhemoglobin ABG Sodium ABG Potassium ABG Chloride ABG Glucose Carboxyhemoglobin Sodium 159 H Potassium Chloride 115.4 H Carbon Dioxide 35 H BUN 44 H Creatinine Glucose 177 H POC Glucose 151 H 184 H Calcium Phosphorus Ferritin AST Lactate Dehydrogenase C-Reactive Protein Total Protein Albumin Lipase Vitamin B12 Arterial Blood Glucose Valproic Acid Coronavirus (PCR) 05/12/21 05/12/21 05/12/21 05:15 05:27 05:56 WBC 11.6 H RBC 3.13 L Hgb 9.4 L Hct 30.9 L MCV 99 H MCH MCHC 30 L RDW 16.0 H Lymph % (Auto) [place] % (Auto) Lymph # (Auto) [place] # (Auto) Seg Neutrophils % Seg Neuts % (Manual) Lymphocytes % (Manual) Monocytes % (Manual) Seg Neutrophils # Seg Neutrophils # Man Lymphocytes # (Manual) Monocytes # (Manual) PT INR APTT D-Dimer ABG pH POC ABG pCO2 POC ABG pO2 ABG pO2 107.6 H ABG HCO3 36.8 H ABG Base Excess 9.3 H ABG Hemoglobin 11.2 L ABG Oxyhemoglobin ABG Sodium ABG Potassium ABG Chloride ABG Glucose Carboxyhemoglobin Sodium Potassium Chloride Carbon Dioxide BUN Creatinine Glucose POC Glucose 163 H Calcium Phosphorus Ferritin AST Lactate Dehydrogenase C-Reactive Protein Total Protein Albumin Lipase Vitamin B12 Arterial Blood Glucose Valproic Acid Coronavirus (PCR) 05/12/21 05/12/21 05:56 11:57 WBC RBC Hgb Hct MCV MCH MCHC RDW Lymph % (Auto) [place] % (Auto) Lymph # (Auto) [place] # (Auto) Seg Neutrophils % Seg Neuts % (Manual) Lymphocytes % (Manual) Monocytes % (Manual) Seg Neutrophils # Seg Neutrophils # Man Lymphocytes # (Manual) Monocytes # (Manual) PT INR APTT D-Dimer ABG pH POC ABG pCO2 POC ABG pO2 ABG pO2 ABG HCO3 ABG Base Excess ABG Hemoglobin ABG Oxyhemoglobin ABG Sodium ABG Potassium ABG Chloride ABG Glucose Carboxyhemoglobin Sodium 154 H Potassium Chloride 111.4 H Carbon Dioxide 34 H BUN 41 H Creatinine 0.5 L Glucose 185 H POC Glucose 137 H Calcium Phosphorus 2.40 L Ferritin AST Lactate Dehydrogenase C-Reactive Protein Total Protein Albumin Lipase Vitamin B12 Arterial Blood Glucose Valproic Acid Coronavirus (PCR)
[2021-05-12] MEDS ORDERED: LACTATED RINGERS 1,000 ML IV ONE (16:59)
[2021-05-12] MEDS: ENOXAPARIN 40 MG/0.4 ML INJ SUB-Q SCH (21:36)
[2021-05-12] MEDS: VALPROIC ACID 250 MG/5 ML ORAL LIQD PO SCH (21:43)
[2021-05-12] MEDS: SENNOSIDES 8.6 MG TAB PO SCH (21:43)
[2021-05-13] MEDS: FREE WATER PO SCH ×6 (02:15→23:11)
[2021-05-13 05:20] LABS: ABG HCO3 36.8 mmol/L (20.0-26.0); ABG Methemoglobin 0.6 % (0.0-1.5); ABG Oxygen Saturation 96.6 % (95.0-99.0); ABG PCO2 49.3 mm Hg; ABG PH 7.49 pH Units (7.350-7.450); ABG PO2 70.2 mm Hg (80.0-90.0)
[2021-05-13 06:29] LABS: Hematocrit 29.5 % (35.5-45.6); Hemoglobin 9.3 gm/dl (11.8-15.2); Mean Corpuscular HGB Conc 32 % (32-34); Mean Corpuscular Volume 95 fl (84-94); Red Blood Count 3.12 M/mm3 (3.65-5.03)
[2021-05-13 06:32] LABS: Platelet Count 126 K/mm3 (140-440)
[2021-05-13 06:52] LABS: BUN/Creatinine Ratio 87; Blood Urea Nitrogen 26 mg/dL (9-20); Calcium 8.1 mg/dL (8.4-10.2); Hemolysis Index 9
[2021-05-13] MEDS: DEXTROSE 5% IN WATER 1,000 ML IV SCH ×2 (08:18→19:26)
--- NOTE | 2021-05-13 09:37 | Consultation ---
History of Present Illness Consult date: 05/13/21 Chief complaint: vent - History of present illness History of present illness: 66-year-old male who was brought to ER on 04/21/21 by family for AMS, fever. He was found to be COVID positive. Patient found to be lethargic, hypotensive unresponsive to fluid bolus during admission. He was transferred to ICU and intubated on 05/11/21. PEG placed earlier in the admission due to dysphagia and inability to participate in speech eval due to mental status. Pt unable to be safely weaned from vent due to baseline mental status and trach requested by [employer]. Past History Past Medical History: other (Likely developmental delay, or mental illness - lives in personal usp, per ED note) Past Surgical History: Other (PEG) Social history: Lives alone (Lives in personal care facility, according to ED note. Has court appointed guardian.), full code Family history: hypertension Medications and Allergies Allergies Allergy/AdvReac Type Severity Reaction Status Date / Time No Known Allergies Allergy Verified 04/23/21 12:31 Home Medications Medication Instructions Recorded Confirmed Last Taken Type Divalproex [DepCatherine STEWART] 250 mg PO QHS 04/23/21 04/23/21 Unknown History Glycopyrrolate 2 mg PO BID 04/23/21 04/23/21 Unknown History Paliperidone Palmitate [Invega 156 mg IM QMONTH 04/23/21 04/23/21 Unknown Hi story Sustenna] Active Meds: Active Medications Acetaminophen (Acetaminophen 325 Mg Tab) 650 mg PO Q4H PRN PRN Reason: Pain MILD(1-3)/Fever >100.5/RAY Last Admin: 05/08/21 23:18 Dose: 650 mg Albuterol (Albuterol 2.5 Mg/3 Ml Nebu) 2.5 mg IH Q4HRT PRN PRN Reason: Shortness Of Breath Lipase/Protease/Amylase (Lipase 10,500/Protease 25,000/Amylase 43,750 (Units) Dr Espinoza) 1 each FEEDTUBE PRN PRN PRN Reason: For Clogged Feeding Tube Enoxaparin Sodium (Enoxaparin 40 Mg/0.4 Ml Inj) 40 mg SUB-Q QDAY@2200 EDDIE; Protocol Last Admin: 05/12/21 21:36 Dose: 40 mg Famotidine (Famotidine 20 Mg Tab) 20 mg FEEDTUBE BID EDDIE Fentanyl (Fentanyl 100 Mcg/2 Ml Inj) 50 mcg IV Q10MIN PRN PRN Reason: ANALGESIA Last Admin: 05/11/21 20:27 Dose: 50 mcg NORepinephrine/NS 8 MG-250 ML (Norepinephrine/Ns 8 Mg-250 Ml (Double Conc)) 8 mg in 250 mls @ 3.75 mls/hr IV TITRATE EDDIE; Protocol Last Titration: 05/13/21 08:13 Dose: 4 mcg/min, 7.5 mls/hr Vasopressin 20 unit/ Sodium (Chloride) 101 mls @ 9.09 mls/hr IV TITR EDDIE; Protocol Last Titration: 05/13/21 08:13 Dose: 0 units/min, 0 mls/hr Fentanyl Citrate (Fentanyl Drip Premix) 2,000 mcg in 100 mls @ 2.64 mls/hr IV TITR EDDIE; Protocol Dextrose (D5w) 1,000 mls @ 75 mls/hr IV DIRECT EDDIE Stop: 05/14/21 10:19 Last Admin: 05/13/21 08:18 Dose: 75 mls/hr Lorazepam (Lorazepam 2 Mg/Ml Vial) 2 mg IV Q1H PRN PRN Reason: Seizures Metoclopramide HCl (Metoclopramide 10 Mg/2 Ml Inj) 10 mg IV Q6H PRN PRN Reason: Nausea And Vomiting Metoprolol Tartrate (Metoprolol Tartrate 5 Mg/5 Ml Inj) 2.5 mg IV Q6HR PRN PRN Reason: Tachyarrhythmias Last Admin: 05/11/21 15:11 Dose: 2.5 mg Metoprolol Tartrate (Metoprolol Tartrate 25 Mg Tab) 12.5 mg FEEDTUBE BID EDDIE Ondansetron HCl (Ondansetron 4 Mg/2 Ml Inj) 4 mg IV Q8H PRN PRN Reason: Nausea And Vomiting Senna (Sennosides 8.6 Mg Tab) 17.2 mg FEEDTUBE QHS EDDIE Simple Syrup (Simple Syrup 15 Ml) 15 ml FEEDTUBE PRN PRN PRN Reason: Hypoglycemia Simple Syrup (Simple Syrup 15 Ml) 30 ml FEEDTUBE PRN PRN PRN Reason: Hypoglycemia Sodium Bicarbonate (Sodium Bicarbonate 325 Mg Tab) 325 mg FEEDTUBE PRN PRN PRN Reason: For Clogged Feeding Tube Sodium Chloride (Sodium Chloride 0.9% 10 Ml Flush Syringe) 10 ml IV BID [facility] Last Admin: 05/12/21 21:36 Dose: 10 ml Sodium Chloride (Sodium Chloride 0.9% 10 Ml Flush Syringe) 10 ml IV PRN PRN PRN Reason: LINE FLUSH Valproic Acid (Valproic Acid 250 Mg/5 Ml Oral Liqd) 250 mg FEEDTUBE QHS [facility] Review of Systems ROS unobtainable: due to endotracheal tube, due to mental status Exam Vital Signs Temp Pulse Resp BP Pulse Ox 98.4 F 104 H 16 105/74 97 04/21/21 15:16 04/21/21 15:16 04/21/21 15:16 04/21/21 15:16 04/21/21 15:16 Narrative exam: Gen.: Intubated, not on sedation. Unresponsive. No apparent distress ENT: ETT in place. Trachea midline. No lymphadenopathy. No scleral icterus or conjunctival pallor CV: S1, S2 present Respiratory: No audible wheezes Extremities: No clubbing, cyanosis, edema Results - Labs 05/13/21 05:53 05/13/21 05:53 Abnormal lab results 05/12/21 05/12/21 05/13/21 Range/Units 11:57 18:07 04:37 WBC (4.5-11.0) K/mm3 RBC (3.65-5.03) M/mm3 Hgb (11.8-15.2) gm/dl Hct (35.5-45.6) % MCV (84-94) fl Plt Count (140-440) K/mm3 ABG pH 7.490 H (7.350-7.450) pH Units ABG pO2 70.2 L (80.0-90.0) mm Hg ABG HCO3 36.8 H (20.0-26.0) mmol/L ABG Base Excess 12.0 H (-2.0-3.0) mmol/L ABG Hemoglobin 9.9 L (14.0-18.0) gm/dl Oxyhemoglobin 94.7 L (95.0-99.0) % Sodium (137-145) mmol/L Carbon Dioxide (22-30) mmol/L BUN (9-20) mg/dL Creatinine (0.8-1.3) mg/dL POC Glucose 137 H 133 H (70-105) mg/dL Calcium (8.4-10.2) mg/dL 05/13/21 05/13/21 Range/Units 05:53 05:53 WBC 16.4 H (4.5-11.0) K/mm3 RBC 3.12 L (3.65-5.03) M/mm3 Hgb 9.3 L (11.8-15.2) gm/dl Hct 29.5 L (35.5-45.6) % MCV 95 H (84-94) fl Plt Count 126 L (140-440) K/mm3 ABG pH (7.350-7.450) pH Units ABG pO2 (80.0-90.0) mm Hg ABG HCO3 (20.0-26.0) mmol/L ABG Base Excess (-2.0-3.0) mmol/L ABG Hemoglobin (14.0-18.0) gm/dl Oxyhemoglobin (95.0-99.0) % Sodium 151 H (137-145) mmol/L Carbon Dioxide 33 H (22-30) mmol/L BUN 26 H (9-20) mg/dL Creatinine 0.3 L (0.8-1.3) mg/dL POC Glucose (70-105) mg/dL Calcium 8.1 L (8.4-10.2) mg/dL Diabetes panel 05/13/21 Range/Units 05:53 Sodium 151 H (137-145) mmol/L Potassium 4.4 (3.6-5.0) mmol/L Chloride 106.9 (98-107) mmol/L Carbon Dioxide 33 H (22-30) mmol/L BUN 26 H (9-20) mg/dL Creatinine 0.3 L (0.8-1.3) mg/dL Glucose 99 (75-100) mg/dL Calcium 8.1 L (8.4-10.2) mg/dL Calcium panel 05/13/21 Range/Units 05:53 Calcium 8.1 L (8.4-10.2) mg/dL Pituitary panel 05/13/21 Range/Units 05:53 Sodium 151 H (137-145) mmol/L Potassium 4.4 (3.6-5.0) mmol/L Chloride 106.9 (98-107) mmol/L Carbon Dioxide 33 H (22-30) mmol/L BUN 26 H (9-20) mg/dL Creatinine 0.3 L (0.8-1.3) mg/dL Glucose 99 (75-100) mg/dL Calcium 8.1 L (8.4-10.2) mg/dL Adrenal panel 05/13/21 Range/Units 05:53 Sodium 151 H (137-145) mmol/L Potassium 4.4 (3.6-5.0) mmol/L Chloride 106.9 (98-107) mmol/L Carbon Dioxide 33 H (22-30) mmol/L BUN 26 H (9-20) mg/dL Creatinine 0.3 L (0.8-1.3) mg/dL Glucose 99 (75-100) mg/dL Calcium 8.1 L (8.4-10.2) mg/dL - Imaging Chest x-ray: report reviewed, image reviewed Assessment and Plan 66 yo M with VDRF FIO2 50%, PEEP 8 1. Vent management per 1' team 2. TF as maria g 3. Acceptable candidate for trach. D/w Guardian who will send paperwork to be filled out by 2 physicians for trach approval. 4. Tentatively added to OR schedule for Tuesday05/15/21 Thank you, please call with questions.
[2021-05-13] MEDS: METOPROLOL TARTRATE 25 MG TAB FEEDTUBE SCH ×2 (10:00→21:24)
[2021-05-13] MEDS: FAMOTIDINE 20 MG TAB FEEDTUBE SCH ×2 (10:28→21:23)
[2021-05-13] MEDS ORDERED: ALTEPLASE 2 MG INJ IV SCH (11:00)
[2021-05-13] MEDS ORDERED: LACTATED RINGERS 1,000 ML IV ONE (12:45)
--- NOTE | 2021-05-13 13:32 | Progress Note ---
Assessment and Plan 66 y/o male with altered mental status found to be COVID positive, now with worsening respiratory failure. 05/13/21: Appreciate Surgery Help. Trach scheduled for Tuesday. Filled out paperwork for guardian to approve trach. Daily PSV trials as tolerated. 05/12/21: Placed consult to surgery for trach and peg as patient's mental state will not allow successful weaning without a secure airway. Continue CPT therapy. CM to reach out to guardian to start working on placement. 05/10/21: Contniue CPT. Called by RT yesterday for changes in breathing pattern but still with good sats. Patient is not a candidate for bipap so next step would be intubation. Asked RT to pass this on to night time staff. Still awaiting to hear from guardianship about hospice as all of their patient's are full code and they will likely not change his code status. Poor prognosis. 05/09/21: Given current clinical state, no improvement in pulmonary status, increased weakness with continued risk for aspiration in the face of COVID 19 pneumonia, I agree that hospice would be a reasonable option for this patient. Not sure what company could take current oxygen demand so if this is pursued it would likely need to be inpatient with plans of comfort and deescalation. Continue CPT and mucomyst nebs. Guarded to poor prognosis. 05/08/21: Continue CPT. Will try mucomyst nebs to see if this helps with sputum expectoration given weak cough. Guarded prognosis. Prone if able. 05/07/21: Continue CPT. Will speak with pharmacy but may need hypertonic saline neb to help induce cough to help expectorate mucous. Ideally should be bronched, but would need to either be intubated or have LMA and doubt GI will allow given COVID positive state. Guarded to poor prognosis. 05/06/21: Please continue CPT multiple times daily. Please document this. Suggest proning patient to help with oxygenation if possible. Guarded prognosis. 05/05/21: Increased CPT to 3-6x daily. Should be done with scheduled albuterol therapy. Please wake patient up for scheduled meds as we are trying to remove mucous and improve oxygenation. Will discuss with RT to pass on to night shit. Prone as much as possible. Daily net negative fluid balance 1. Mucous plug on CTA. Needs CPT but more than daily. Please increase to at least TID 2. Prone as much as possible and sleep prone at night 3. Has already finished steroids 4. Guarded prognosis. CCT 31 minutes. Subjective Date of service: 05/13/21 Principal diagnosis: Encephalopathy,COVID-19 Interval history: REmains unresponsive on the vent. Minimal settings and CXR is better overall. Surgery has seen for trach. Objective Vital Signs - 12hr 05/13/21 05/13/21 05/13/21 01:45 02:00 02:15 Temperature Pulse Rate 102 H 99 H 97 H Pulse Rate [ From Monitor] Respiratory 26 H 26 H 25 H Rate Blood Pressure 113/72 106/71 107/69 O2 Sat by Pulse 98 98 99 Oximetry 05/13/21 05/13/21 05/13/21 02:30 02:45 03:00 Temperature Pulse Rate 101 H 102 H 103 H Pulse Rate [ From Monitor] Respiratory 26 H 22 29 H Rate Blood Pressure 105/70 101/71 108/70 O2 Sat by Pulse 99 99 99 Oximetry 05/13/21 05/13/21 05/13/21 03:15 03:20 03:30 Temperature Pulse Rate 104 H 104 H 105 H Pulse Rate [ From Monitor] Respiratory 21 28 H Rate Blood Pressure 92/64 92/64 97/69 O2 Sat by Pulse 99 100 99 Oximetry 05/13/21 05/13/21 05/13/21 03:45 04:00 04:15 Temperature Pulse Rate 102 H 103 H 101 H Pulse Rate [ 101 H From Monitor] Respiratory 27 H 29 H 26 H Rate Blood Pressure 102/71 100/69 107/71 O2 Sat by Pulse 99 98 99 Oximetry 05/13/21 05/13/21 05/13/21 04:30 04:45 05:00 Temperature Pulse Rate 104 H 111 H 105 H Pulse Rate [ From Monitor] Respiratory 27 H 27 H 27 H Rate Blood Pressure 105/71 110/74 109/72 O2 Sat by Pulse 99 98 98 Oximetry 05/13/21 05/13/21 05/13/21 05:15 05:30 05:45 Temperature Pulse Rate 105 H 100 H 98 H Pulse Rate [ From Monitor] Respiratory 29 H 25 H 29 H Rate Blood Pressure 110/71 117/78 112/76 O2 Sat by Pulse 99 98 98 Oximetry 05/13/21 05/13/21 05/13/21 06:00 06:15 06:30 Temperature Pulse Rate 99 H 95 H 103 H Pulse Rate [ From Monitor] Respiratory 28 H 25 H 30 H Rate Blood Pressure 98/77 108/76 105/75 O2 Sat by Pulse 99 99 99 Oximetry 05/13/21 05/13/21 05/13/21 06:45 07:00 07:15 Temperature Pulse Rate 101 H 103 H 107 H Pulse Rate [ From Monitor] Respiratory 19 28 H 29 H Rate Blood Pressure 107/72 107/74 99/74 O2 Sat by Pulse 98 97 98 Oximetry 05/13/21 05/13/21 05/13/21 07:30 07:45 08:00 Temperature 98 F Pulse Rate 106 H 102 H 102 H Pulse Rate [ From Monitor] Respiratory 31 H 25 H 26 H Rate Blood Pressure 109/75 100/74 116/77 O2 Sat by Pulse 99 100 99 Oximetry 05/13/21 05/13/21 05/13/21 08:15 08:30 08:45 Temperature Pulse Rate 99 H 99 H 103 H Pulse Rate [ From Monitor] Respiratory 25 H 28 H 28 H Rate Blood Pressure 92/62 92/61 95/60 O2 Sat by Pulse 98 98 98 Oximetry 05/13/21 05/13/21 05/13/21 08:56 09:00 09:15 Temperature Pulse Rate 99 H 107 H 107 H Pulse Rate [ From Monitor] Respiratory 20 26 H Rate Blood Pressure 98/77 95/55 88/60 O2 Sat by Pulse 99 98 100 Oximetry 05/13/21 05/13/21 05/13/21 09:30 09:45 10:00 Temperature Pulse Rate 110 H 113 H 109 H Pulse Rate [ From Monitor] Respiratory 30 H 30 H 31 H Rate Blood Pressure 85/57 82/59 86/60 O2 Sat by Pulse 97 98 98 Oximetry 05/13/21 05/13/21 05/13/21 10:15 10:30 10:45 Temperature Pulse Rate 111 H 111 H 112 H Pulse Rate [ From Monitor] Respiratory 25 H 33 H 27 H Rate Blood Pressure 91/67 96/63 84/60 O2 Sat by Pulse 99 98 100 Oximetry 05/13/21 05/13/21 05/13/21 11:00 11:15 11:21 Temperature Pulse Rate 108 H 118 H 111 H Pulse Rate [ From Monitor] Respiratory 26 H 23 Rate Blood Pressure 87/61 91/55 96/63 O2 Sat by Pulse 99 99 98 Oximetry 05/13/21 05/13/21 05/13/21 11:30 11:45 12:00 Temperature 98.2 F Pulse Rate 109 H 111 H 108 H Pulse Rate [ From Monitor] Respiratory 29 H 26 H 29 H Rate Blood Pressure 83/45 77/48 78/49 O2 Sat by Pulse 98 98 98 Oximetry 05/13/21 05/13/21 05/13/21 12:15 12:30 12:45 Temperature Pulse Rate 110 H 107 H 105 H Pulse Rate [ From Monitor] Respiratory 31 H 31 H 31 H Rate Blood Pressure 76/48 79/48 85/50 O2 Sat by Pulse 98 98 99 Oximetry 05/13/21 13:00 Temperature Pulse Rate 109 H Pulse Rate [ From Monitor] Respiratory 31 H Rate Blood Pressure 85/50 O2 Sat by Pulse 98 Oximetry Constitutional: other (on nrb mask sat 100%, opens eyes to tactile stimuli, doesnt follow command ) ENT: oropharynx moist, oropharynx dry Ascultation: Bilateral: rhonchi (sl better) Cardiovascular: regular rate and rhythm, PVC's noted Gastrointestinal: normoactive bowel sounds Integumentary: normal CBC and BMP: 05/13/21 05:53 05/13/21 05:53 ABG, PT/INR, D-dimer: ABG ABG pH 7.490 pH Units (7.350-7.450) H 05/13/21 04:37 POC ABG pCO2 129.5 mmHg (32.0-48.0) H 05/11/21 03:20 ABG pCO2 49.3 mm Hg 05/13/21 04:37 POC ABG pO2 139.1 mmHg (83-108) H 05/11/21 03:20 ABG pO2 70.2 mm Hg (80.0-90.0) L 05/13/21 04:37 POC ABG HCO3 37.8 05/11/21 03:20 ABG O2 Saturation 96.6 % (95.0-99.0) 05/13/21 04:37 PT/INR, D-dimer PT 16.0 Sec. (12.2-14.9) H 05/07/21 07:28 INR 1.16 (0.87-1.13) H 05/07/21 07:28 D-Dimer 690.97 ng/mlDDU (0-234) H 04/30/21 06:20 Abnormal lab findings: Abnormal Labs 04/21/21 04/21/21 04/22/21 16:08 16:08 00:20 WBC RBC Hgb Hct MCV 96 H MCH MCHC RDW Plt Count Lymph % (Auto) 8.5 L [place] % (Auto) 15.8 H Lymph # (Auto) 0.9 L [place] # (Auto) 1.7 H Seg Neutrophils % 75.6 H Seg Neuts % (Manual) Lymphocytes % (Manual) Monocytes % (Manual) Seg Neutrophils # 8.0 H Seg Neutrophils # Man Lymphocytes # (Manual) Monocytes # (Manual) PT INR APTT D-Dimer 621.94 H ABG pH POC ABG pCO2 POC ABG pO2 ABG pO2 ABG HCO3 ABG Base Excess ABG Hemoglobin ABG Oxyhemoglobin ABG Sodium ABG Potassium ABG Chloride ABG Glucose Oxyhemoglobin Carboxyhemoglobin Sodium Potassium Chloride Carbon Dioxide BUN Creatinine 0.6 L Glucose 107 H POC Glucose Calcium 8.3 L Phosphorus Ferritin AST 136 H Lactate Dehydrogenase C-Reactive Protein Total Protein 6.2 L Albumin 3.0 L Lipase 7 L Vitamin B12 Arterial Blood Glucose Valproic Acid Coronavirus (PCR) 04/22/21 04/22/21 04/22/21 00:20 00:20 06:51 WBC RBC Hgb Hct MCV 95 H MCH MCHC RDW Plt Count Lymph % (Auto) [place] % (Auto) Lymph # (Auto) [place] # (Auto) Seg Neutrophils % Seg Neuts % (Manual) 91.0 H Lymphocytes % (Manual) 1.0 L Monocytes % (Manual) Seg Neutrophils # Seg Neutrophils # Man Lymphocytes # (Manual) 0.1 L Monocytes # (Manual) PT INR APTT D-Dimer ABG pH POC ABG pCO2 POC ABG pO2 ABG pO2 ABG HCO3 ABG Base Excess ABG Hemoglobin ABG Oxyhemoglobin ABG Sodium ABG Potassium ABG Chloride ABG Glucose Oxyhemoglobin Carboxyhemoglobin Sodium Potassium Chloride Carbon Dioxide BUN Creatinine Glucose POC Glucose Calcium Phosphorus Ferritin 427.3 H AST Lactate Dehydrogenase 379 H C-Reactive Protein 9.20 H Total Protein Albumin Lipase Vitamin B12 Arterial Blood Glucose Valproic Acid Coronavirus (PCR) 04/22/21 04/22/21 04/23/21 06:51 Unknown 09:24 WBC RBC Hgb Hct MCV 96 H MCH MCHC RDW Plt Count Lymph % (Auto) 5.9 L [place] % (Auto) 9.3 H Lymph # (Auto) 0.5 L [place] # (Auto) Seg Neutrophils % 84.8 H Seg Neuts % (Manual) Lymphocytes % (Manual) Monocytes % (Manual) Seg Neutrophils # Seg Neutrophils # Man Lymphocytes # (Manual) Monocytes # (Manual) PT INR APTT D-Dimer ABG pH POC ABG pCO2 POC ABG pO2 ABG pO2 ABG HCO3 ABG Base Excess ABG Hemoglobin ABG Oxyhemoglobin ABG Sodium ABG Potassium ABG Chloride ABG Glucose Oxyhemoglobin Carboxyhemoglobin Sodium Potassium Chloride Carbon Dioxide BUN Creatinine 0.4 L Glucose 114 H POC Glucose Calcium 8.0 L Phosphorus Ferritin AST 116 H Lactate Dehydrogenase C-Reactive Protein Total Protein 5.9 L Albumin 3.0 L Lipase Vitamin B12 Arterial Blood Glucose Valproic Acid Coronavirus (PCR) Positive A 04/23/21 04/23/21 04/24/21 09:24 22:38 07:56 WBC RBC Hgb Hct MCV MCH MCHC RDW Plt Count Lymph % (Auto) [place] % (Auto) Lymph # (Auto) [place] # (Auto) Seg Neutrophils % Seg Neuts % (Manual) Lymphocytes % (Manual) Monocytes % (Manual) Seg Neutrophils # Seg Neutrophils # Man Lymphocytes # (Manual) Monocytes # (Manual) PT INR APTT D-Dimer ABG pH POC ABG pCO2 POC ABG pO2 ABG pO2 ABG HCO3 ABG Base Excess ABG Hemoglobin ABG Oxyhemoglobin ABG Sodium ABG Potassium ABG Chloride ABG Glucose Oxyhemoglobin Carboxyhemoglobin Sodium Potassium 3.5 L Chloride Carbon Dioxide BUN Creatinine 0.5 L Glucose 102 H POC Glucose 111 H Calcium 8.3 L Phosphorus 2.30 L Ferritin AST Lactate Dehydrogenase C-Reactive Protein Total Protein Albumin Lipase Vitamin B12 1039 H Arterial Blood Glucose Valproic Acid Coronavirus (PCR) 04/24/21 04/24/21 04/24/21 07:56 07:56 21:37 WBC RBC Hgb Hct MCV 95 H MCH MCHC RDW Plt Count Lymph % (Auto) [place] % (Auto) Lymph # (Auto) [place] # (Auto) Seg Neutrophils % Seg Neuts % (Manual) 80.0 H Lymphocytes % (Manual) 10.0 L Monocytes % (Manual) 10.0 H Seg Neutrophils # Seg Neutrophils # Man Lymphocytes # (Manual) 0.7 L Monocytes # (Manual) PT INR APTT D-Dimer ABG pH POC ABG pCO2 POC ABG pO2 ABG pO2 ABG HCO3 ABG Base Excess ABG Hemoglobin ABG Oxyhemoglobin ABG Sodium ABG Potassium ABG Chloride ABG Glucose Oxyhemoglobin Carboxyhemoglobin Sodium Potassium Chloride Carbon Dioxide BUN Creatinine 0.4 L Glucose POC Glucose 111 H Calcium Phosphorus Ferritin AST Lactate Dehydrogenase C-Reactive Protein Total Protein Albumin Lipase Vitamin B12 Arterial Blood Glucose Valproic Acid Coronavirus (PCR) 04/25/21 04/25/21 04/25/21 06:24 06:24 23:13 WBC RBC Hgb Hct 46.6 H MCV MCH MCHC RDW Plt Count Lymph % (Auto) [place] % (Auto) Lymph # (Auto) [place] # (Auto) Seg Neutrophils % Seg Neuts % (Manual) 83.0 H Lymphocytes % (Manual) 1.0 L Monocytes % (Manual) 9.0 H Seg Neutrophils # Seg Neutrophils # Man Lymphocytes # (Manual) 0.1 L Monocytes # (Manual) PT INR APTT D-Dimer ABG pH POC ABG pCO2 POC ABG pO2 ABG pO2 ABG HCO3 ABG Base Excess ABG Hemoglobin ABG Oxyhemoglobin ABG Sodium ABG Potassium ABG Chloride ABG Glucose Oxyhemoglobin Carboxyhemoglobin Sodium 136 L 134 L Potassium 3.3 L Chloride Carbon Dioxide 21 L BUN Creatinine 0.3 L 0.4 L Glucose 115 H POC Glucose Calcium 7.7 L Phosphorus Ferritin AST 104 H Lactate Dehydrogenase C-Reactive Protein Total Protein 6.1 L Albumin 2.6 L Lipase Vitamin B12 Arterial Blood Glucose Valproic Acid Coronavirus (PCR) 04/26/21 04/27/21 04/27/21 06:29 06:31 06:31 WBC 17.6 H RBC Hgb Hct MCV MCH MCHC RDW Plt Count Lymph % (Auto) [place] % (Auto) Lymph # (Auto) [place] # (Auto) Seg Neutrophils % Seg Neuts % (Manual) 87.0 H Lymphocytes % (Manual) 5.0 L Monocytes % (Manual) Seg Neutrophils # Seg Neutrophils # Man 15.3 H Lymphocytes # (Manual) 0.9 L Monocytes # (Manual) 0.9 H PT INR APTT D-Dimer ABG pH POC ABG pCO2 POC ABG pO2 ABG pO2 ABG HCO3 ABG Base Excess ABG Hemoglobin ABG Oxyhemoglobin ABG Sodium ABG Potassium ABG Chloride ABG Glucose Oxyhemoglobin Carboxyhemoglobin Sodium Potassium 3.4 L Chloride Carbon Dioxide BUN Creatinine 0.5 L 0.4 L Glucose 112 H 106 H POC Glucose Calcium 8.0 L Phosphorus Ferritin AST 114 H 110 H Lactate Dehydrogenase C-Reactive Protein Total Protein 6.2 L Albumin 2.9 L 2.6 L Lipase Vitamin B12 Arterial Blood Glucose Valproic Acid Coronavirus (PCR) 04/28/21 04/28/21 04/29/21 08:03 08:03 04:00 WBC 19.8 H 14.0 H RBC Hgb Hct MCV 95 H MCH MCHC RDW Plt Count Lymph % (Auto) [place] % (Auto) Lymph # (Auto) [place] # (Auto) Seg Neutrophils % Seg Neuts % (Manual) 94.0 H Lymphocytes % (Manual) 1.0 L Monocytes % (Manual) Seg Neutrophils # Seg Neutrophils # Man 18.6 H Lymphocytes # (Manual) 0.2 L Monocytes # (Manual) PT INR APTT D-Dimer ABG pH POC ABG pCO2 POC ABG pO2 ABG pO2 ABG HCO3 ABG Base Excess ABG Hemoglobin ABG Oxyhemoglobin ABG Sodium ABG Potassium ABG Chloride ABG Glucose Oxyhemoglobin Carboxyhemoglobin Sodium Potassium Chloride Carbon Dioxide BUN Creatinine 0.2 L Glucose 107 H POC Glucose Calcium 8.1 L Phosphorus Ferritin AST 87 H Lactate Dehydrogenase C-Reactive Protein Total Protein 5.1 L Albumin 2.4 L Lipase Vitamin B12 Arterial Blood Glucose Valproic Acid Coronavirus (PCR) 04/29/21 04/30/21 04/30/21 04:00 06:20 06:20 WBC RBC Hgb Hct MCV MCH MCHC RDW Plt Count Lymph % (Auto) [place] % (Auto) Lymph # (Auto) [place] # (Auto) Seg Neutrophils % Seg Neuts % (Manual) Lymphocytes % (Manual) Monocytes % (Manual) Seg Neutrophils # Seg Neutrophils # Man Lymphocytes # (Manual) Monocytes # (Manual) PT INR APTT D-Dimer 690.97 H ABG pH POC ABG pCO2 POC ABG pO2 ABG pO2 ABG HCO3 ABG Base Excess ABG Hemoglobin ABG Oxyhemoglobin ABG Sodium ABG Potassium ABG Chloride ABG Glucose Oxyhemoglobin Carboxyhemoglobin Sodium 148 H Potassium 3.0 L Chloride 110.2 H Carbon Dioxide BUN Creatinine 0.2 L Glucose 130 H POC Glucose Calcium Phosphorus Ferritin 930.1 H AST 63 H Lactate Dehydrogenase C-Reactive Protein Total Protein 5.6 L Albumin 2.4 L Lipase Vitamin B12 Arterial Blood Glucose Valproic Acid Coronavirus (PCR) 04/30/21 04/30/21 04/30/21 06:20 08:01 08:41 WBC RBC Hgb Hct MCV MCH MCHC RDW Plt Count Lymph % (Auto) [place] % (Auto) Lymph # (Auto) [place] # (Auto) Seg Neutrophils % Seg Neuts % (Manual) Lymphocytes % (Manual) Monocytes % (Manual) Seg Neutrophils # Seg Neutrophils # Man Lymphocytes # (Manual) Monocytes # (Manual) PT INR APTT D-Dimer ABG pH POC ABG pCO2 POC ABG pO2 ABG pO2 ABG HCO3 ABG Base Excess ABG Hemoglobin ABG Oxyhemoglobin ABG Sodium ABG Potassium ABG Chloride ABG Glucose Oxyhemoglobin Carboxyhemoglobin Sodium 151 H Potassium 3.3 L Chloride 110.3 H Carbon Dioxide BUN Creatinine 0.3 L Glucose 119 H POC Glucose 119 H Calcium Phosphorus Ferritin AST Lactate Dehydrogenase 423 H C-Reactive Protein 8.90 H Total Protein Albumin Lipase Vitamin B12 Arterial Blood Glucose Valproic Acid Coronavirus (PCR) 04/30/21 05/01/21 05/01/21 11:14 07:29 07:29 WBC 21.4 H RBC Hgb Hct MCV MCH MCHC RDW Plt Count Lymph % (Auto) [place] % (Auto) Lymph # (Auto) [place] # (Auto) Seg Neutrophils % Seg Neuts % (Manual) Lymphocytes % (Manual) Monocytes % (Manual) Seg Neutrophils # Seg Neutrophils # Man Lymphocytes # (Manual) Monocytes # (Manual) PT INR APTT D-Dimer ABG pH POC ABG pCO2 POC ABG pO2 ABG pO2 ABG HCO3 ABG Base Excess ABG Hemoglobin ABG Oxyhemoglobin ABG Sodium ABG Potassium ABG Chloride ABG Glucose Oxyhemoglobin Carboxyhemoglobin Sodium 150 H Potassium 2.7 L* Chloride 111.2 H Carbon Dioxide BUN Creatinine 0.3 L Glucose 162 H POC Glucose 113 H Calcium Phosphorus Ferritin AST Lactate Dehydrogenase C-Reactive Protein Total Protein Albumin Lipase Vitamin B12 Arterial Blood Glucose Valproic Acid Coronavirus (PCR) 05/01/21 05/01/21 05/01/21 07:33 11:28 17:54 WBC RBC Hgb Hct MCV MCH MCHC RDW Plt Count Lymph % (Auto) [place] % (Auto) Lymph # (Auto) [place] # (Auto) Seg Neutrophils % Seg Neuts % (Manual) Lymphocytes % (Manual) Monocytes % (Manual) Seg Neutrophils # Seg Neutrophils # Man Lymphocytes # (Manual) Monocytes # (Manual) PT INR APTT D-Dimer ABG pH POC ABG pCO2 POC ABG pO2 ABG pO2 ABG HCO3 ABG Base Excess ABG Hemoglobin ABG Oxyhemoglobin ABG Sodium ABG Potassium ABG Chloride ABG Glucose Oxyhemoglobin Carboxyhemoglobin Sodium Potassium Chloride Carbon Dioxide BUN Creatinine Glucose POC Glucose 147 H 152 H 165 H Calcium Phosphorus Ferritin AST Lactate Dehydrogenase C-Reactive Protein Total Protein Albumin Lipase Vitamin B12 Arterial Blood Glucose Valproic Acid Coronavirus (PCR) 05/02/21 05/02/21 05/02/21 00:23 05:28 05:28 WBC 18.9 H RBC Hgb Hct MCV 95 H MCH MCHC 31 L RDW Plt Count Lymph % (Auto) [place] % (Auto) Lymph # (Auto) [place] # (Auto) Seg Neutrophils % Seg Neuts % (Manual) Lymphocytes % (Manual) Monocytes % (Manual) Seg Neutrophils # Seg Neutrophils # Man Lymphocytes # (Manual) Monocytes # (Manual) PT INR APTT D-Dimer ABG pH POC ABG pCO2 POC ABG pO2 ABG pO2 ABG HCO3 ABG Base Excess ABG Hemoglobin ABG Oxyhemoglobin ABG Sodium ABG Potassium ABG Chloride ABG Glucose Oxyhemoglobin Carboxyhemoglobin Sodium 151 H Potassium Chloride 111.4 H Carbon Dioxide BUN Creatinine 0.3 L Glucose 132 H POC Glucose 160 H Calcium 8.3 L Phosphorus Ferritin AST Lactate Dehydrogenase C-Reactive Protein Total Protein Albumin Lipase Vitamin B12 Arterial Blood Glucose Valproic Acid Coronavirus (PCR) 05/02/21 05/02/21 05/02/21 07:42 11:31 16:39 WBC RBC Hgb Hct MCV MCH MCHC RDW Plt Count Lymph % (Auto) [place] % (Auto) Lymph # (Auto) [place] # (Auto) Seg Neutrophils % Seg Neuts % (Manual) Lymphocytes % (Manual) Monocytes % (Manual) Seg Neutrophils # Seg Neutrophils # Man Lymphocytes # (Manual) Monocytes # (Manual) PT INR APTT D-Dimer ABG pH POC ABG pCO2 POC ABG pO2 ABG pO2 ABG HCO3 ABG Base Excess ABG Hemoglobin ABG Oxyhemoglobin ABG Sodium ABG Potassium ABG Chloride ABG Glucose Oxyhemoglobin Carboxyhemoglobin Sodium Potassium Chloride Carbon Dioxide BUN Creatinine Glucose POC Glucose 170 H 131 H 140 H Calcium Phosphorus Ferritin AST Lactate Dehydrogenase C-Reactive Protein Total Protein Albumin Lipase Vitamin B12 Arterial Blood Glucose Valproic Acid Coronavirus (PCR) 05/02/21 05/03/21 05/03/21 22:42 06:11 09:20 WBC 16.2 H RBC 3.51 L Hgb 10.5 L Hct 33.1 L MCV MCH MCHC RDW 15.4 H Plt Count Lymph % (Auto) [place] % (Auto) Lymph # (Auto) [place] # (Auto) Seg Neutrophils % Seg Neuts % (Manual) Lymphocytes % (Manual) Monocytes % (Manual) Seg Neutrophils # Seg Neutrophils # Man Lymphocytes # (Manual) Monocytes # (Manual) PT INR APTT D-Dimer ABG pH POC ABG pCO2 POC ABG pO2 ABG pO2 ABG HCO3 ABG Base Excess ABG Hemoglobin ABG Oxyhemoglobin ABG Sodium ABG Potassium ABG Chloride ABG Glucose Oxyhemoglobin Carboxyhemoglobin Sodium Potassium Chloride Carbon Dioxide BUN Creatinine Glucose POC Glucose 107 H 108 H Calcium Phosphorus Ferritin AST Lactate Dehydrogenase C-Reactive Protein Total Protein Albumin Lipase Vitamin B12 Arterial Blood Glucose Valproic Acid Coronavirus (PCR) 05/03/21 05/03/21 05/03/21 09:20 11:01 17:33 WBC RBC Hgb Hct MCV MCH MCHC RDW Plt Count Lymph % (Auto) [place] % (Auto) Lymph # (Auto) [place] # (Auto) Seg Neutrophils % Seg Neuts % (Manual) Lymphocytes % (Manual) Monocytes % (Manual) Seg Neutrophils # Seg Neutrophils # Man Lymphocytes # (Manual) Monocytes # (Manual) PT INR APTT D-Dimer ABG pH POC ABG pCO2 POC ABG pO2 ABG pO2 ABG HCO3 ABG Base Excess ABG Hemoglobin ABG Oxyhemoglobin ABG Sodium ABG Potassium ABG Chloride ABG Glucose Oxyhemoglobin Carboxyhemoglobin Sodium 149 H Potassium 3.5 L Chloride 110.0 H Carbon Dioxide BUN Creatinine 0.3 L Glucose 113 H POC Glucose 146 H 118 H Calcium 8.0 L Phosphorus Ferritin AST Lactate Dehydrogenase C-Reactive Protein Total Protein Albumin Lipase Vitamin B12 Arterial Blood Glucose Valproic Acid Coronavirus (PCR) 05/04/21 05/04/21 05/04/21 05:51 13:28 13:28 WBC RBC Hgb Hct MCV MCH MCHC RDW Plt Count Lymph % (Auto) [place] % (Auto) Lymph # (Auto) [place] # (Auto) Seg Neutrophils % Seg Neuts % (Manual) Lymphocytes % (Manual) Monocytes % (Manual) Seg Neutrophils # Seg Neutrophils # Man Lymphocytes # (Manual) Monocytes # (Manual) PT INR APTT D-Dimer ABG pH POC ABG pCO2 POC ABG pO2 ABG pO2 ABG HCO3 ABG Base Excess ABG Hemoglobin ABG Oxyhemoglobin ABG Sodium ABG Potassium ABG Chloride ABG Glucose Oxyhemoglobin Carboxyhemoglobin Sodium Potassium Chloride Carbon Dioxide BUN Creatinine Glucose POC Glucose 143 H Calcium Phosphorus Ferritin AST Lactate Dehydrogenase C-Reactive Protein 15.40 H Total Protein Albumin Lipase Vitamin B12 Arterial Blood Glucose Valproic Acid 10.9 L Coronavirus (PCR) 05/04/21 05/04/21 05/05/21 17:30 23:53 11:23 WBC RBC Hgb Hct MCV MCH MCHC RDW Plt Count Lymph % (Auto) [place] % (Auto) Lymph # (Auto) [place] # (Auto) Seg Neutrophils % Seg Neuts % (Manual) Lymphocytes % (Manual) Monocytes % (Manual) Seg Neutrophils # Seg Neutrophils # Man Lymphocytes # (Manual) Monocytes # (Manual) PT INR APTT D-Dimer ABG pH POC ABG pCO2 POC ABG pO2 ABG pO2 ABG HCO3 ABG Base Excess ABG Hemoglobin ABG Oxyhemoglobin ABG Sodium ABG Potassium ABG Chloride ABG Glucose Oxyhemoglobin Carboxyhemoglobin Sodium Potassium Chloride Carbon Dioxide BUN Creatinine Glucose POC Glucose 110 H 128 H 121 H Calcium Phosphorus Ferritin AST Lactate Dehydrogenase C-Reactive Protein Total Protein Albumin Lipase Vitamin B12 Arterial Blood Glucose Valproic Acid Coronavirus (PCR) 05/05/21 05/05/21 05/06/21 16:26 21:24 07:02 WBC 11.7 H RBC Hgb Hct MCV 99 H MCH 33 H MCHC RDW 15.5 H Plt Count Lymph % (Auto) [place] % (Auto) Lymph # (Auto) [place] # (Auto) Seg Neutrophils % Seg Neuts % (Manual) 82.0 H Lymphocytes % (Manual) 4.0 L Monocytes % (Manual) Seg Neutrophils # Seg Neutrophils # Man 9.6 H Lymphocytes # (Manual) 0.5 L Monocytes # (Manual) PT INR APTT D-Dimer ABG pH POC ABG pCO2 POC ABG pO2 ABG pO2 ABG HCO3 ABG Base Excess ABG Hemoglobin ABG Oxyhemoglobin ABG Sodium ABG Potassium ABG Chloride ABG Glucose Oxyhemoglobin Carboxyhemoglobin Sodium Potassium Chloride Carbon Dioxide BUN Creatinine Glucose POC Glucose 113 H 130 H Calcium Phosphorus Ferritin AST Lactate Dehydrogenase C-Reactive Protein Total Protein Albumin Lipase Vitamin B12 Arterial Blood Glucose Valproic Acid Coronavirus (PCR) 05/07/21 05/07/21 05/07/21 05:00 07:28 21:34 WBC RBC Hgb Hct MCV MCH MCHC RDW Plt Count Lymph % (Auto) [place] % (Auto) Lymph # (Auto) [place] # (Auto) Seg Neutrophils % Seg Neuts % (Manual) Lymphocytes % (Manual) Monocytes % (Manual) Seg Neutrophils # Seg Neutrophils # Man Lymphocytes # (Manual) Monocytes # (Manual) PT 16.0 H INR 1.16 H APTT 43.8 H D-Dimer ABG pH POC ABG pCO2 POC ABG pO2 ABG pO2 ABG HCO3 ABG Base Excess ABG Hemoglobin ABG Oxyhemoglobin ABG Sodium ABG Potassium ABG Chloride ABG Glucose Oxyhemoglobin Carboxyhemoglobin Sodium Potassium Chloride Carbon Dioxide BUN Creatinine Glucose POC Glucose 112 H 123 H Calcium Phosphorus Ferritin AST Lactate Dehydrogenase C-Reactive Protein Total Protein Albumin Lipase Vitamin B12 Arterial Blood Glucose Valproic Acid Coronavirus (PCR) 05/08/21 05/08/21 05/08/21 08:11 12:04 16:37 WBC RBC Hgb Hct MCV MCH MCHC RDW Plt Count Lymph % (Auto) [place] % (Auto) Lymph # (Auto) [place] # (Auto) Seg Neutrophils % Seg Neuts % (Manual) Lymphocytes % (Manual) Monocytes % (Manual) Seg Neutrophils # Seg Neutrophils # Man Lymphocytes # (Manual) Monocytes # (Manual) PT INR APTT D-Dimer ABG pH POC ABG pCO2 POC ABG pO2 ABG pO2 ABG HCO3 ABG Base Excess ABG Hemoglobin ABG Oxyhemoglobin ABG Sodium ABG Potassium ABG Chloride ABG Glucose Oxyhemoglobin Carboxyhemoglobin Sodium Potassium Chloride Carbon Dioxide BUN Creatinine Glucose POC Glucose 158 H 117 H 118 H Calcium Phosphorus Ferritin AST Lactate Dehydrogenase C-Reactive Protein Total Protein Albumin Lipase Vitamin B12 Arterial Blood Glucose Valproic Acid Coronavirus (PCR) 05/09/21 05/09/21 05/09/21 04:56 12:04 17:14 WBC RBC Hgb Hct MCV MCH MCHC RDW Plt Count Lymph % (Auto) [place] % (Auto) Lymph # (Auto) [place] # (Auto) Seg Neutrophils % Seg Neuts % (Manual) Lymphocytes % (Manual) Monocytes % (Manual) Seg Neutrophils # Seg Neutrophils # Man Lymphocytes # (Manual) Monocytes # (Manual) PT INR APTT D-Dimer ABG pH POC ABG pCO2 POC ABG pO2 ABG pO2 ABG HCO3 ABG Base Excess ABG Hemoglobin ABG Oxyhemoglobin ABG Sodium ABG Potassium ABG Chloride ABG Glucose Oxyhemoglobin Carboxyhemoglobin Sodium Potassium Chloride Carbon Dioxide BUN Creatinine Glucose POC Glucose 113 H 107 H 163 H Calcium Phosphorus Ferritin AST Lactate Dehydrogenase C-Reactive Protein Total Protein Albumin Lipase Vitamin B12 Arterial Blood Glucose Valproic Acid Coronavirus (PCR) 05/09/21 05/09/21 05/10/21 21:02 Unknown 12:00 WBC RBC Hgb Hct MCV MCH MCHC RDW Plt Count Lymph % (Auto) [place] % (Auto) Lymph # (Auto) [place] # (Auto) Seg Neutrophils % Seg Neuts % (Manual) Lymphocytes % (Manual) Monocytes % (Manual) Seg Neutrophils # Seg Neutrophils # Man Lymphocytes # (Manual) Monocytes # (Manual) PT INR APTT D-Dimer ABG pH POC ABG pCO2 POC ABG pO2 ABG pO2 ABG HCO3 ABG Base Excess ABG Hemoglobin ABG Oxyhemoglobin ABG Sodium ABG Potassium ABG Chloride ABG Glucose Oxyhemoglobin Carboxyhemoglobin Sodium Potassium Chloride Carbon Dioxide BUN Creatinine Glucose POC Glucose 139 H 132 H Calcium Phosphorus Ferritin AST Lactate Dehydrogenase C-Reactive Protein Total Protein Albumin Lipase Vitamin B12 Arterial Blood Glucose Valproic Acid Coronavirus (PCR) Positive A 05/10/21 05/10/21 05/11/21 17:36 20:37 01:46 WBC RBC Hgb Hct MCV MCH MCHC RDW Plt Count Lymph % (Auto) [place] % (Auto) Lymph # (Auto) [place] # (Auto) Seg Neutrophils % Seg Neuts % (Manual) Lymphocytes % (Manual) Monocytes % (Manual) Seg Neutrophils # Seg Neutrophils # Man Lymphocytes # (Manual) Monocytes # (Manual) PT INR APTT D-Dimer ABG pH POC ABG pCO2 POC ABG pO2 ABG pO2 ABG HCO3 ABG Base Excess ABG Hemoglobin ABG Oxyhemoglobin ABG Sodium ABG Potassium ABG Chloride ABG Glucose Oxyhemoglobin Carboxyhemoglobin Sodium Potassium Chloride Carbon Dioxide BUN Creatinine Glucose POC Glucose 120 H 125 H 118 H Calcium Phosphorus Ferritin AST Lactate Dehydrogenase C-Reactive Protein Total Protein Albumin Lipase Vitamin B12 Arterial Blood Glucose Valproic Acid Coronavirus (PCR) 05/11/21 05/11/21 05/11/21 02:30 02:30 03:20 WBC 12.3 H RBC 3.22 L Hgb 9.6 L Hct 33.3 L MCV 103 H MCH MCHC 29 L RDW 16.6 H Plt Count Lymph % (Auto) 4.9 L [place] % (Auto) 10.6 H Lymph # (Auto) 0.6 L [place] # (Auto) 1.3 H Seg Neutrophils % 84.0 H Seg Neuts % (Manual) Lymphocytes % (Manual) Monocytes % (Manual) Seg Neutrophils # 10.4 H Seg Neutrophils # Man Lymphocytes # (Manual) Monocytes # (Manual) PT INR APTT D-Dimer ABG pH 7.083 L POC ABG pCO2 129.5 H POC ABG pO2 139.1 H ABG pO2 ABG HCO3 ABG Base Excess ABG Hemoglobin 10.6 L ABG Oxyhemoglobin 98.4 H ABG Sodium 154.5 H ABG Potassium 5.4 H ABG Chloride 114.0 H ABG Glucose 128 H Oxyhemoglobin Carboxyhemoglobin 0.3 L Sodium 159 H Potassium 6.6 H* Chloride 116.6 H Carbon Dioxide 35 H BUN 41 H Creatinine Glucose 139 H POC Glucose Calcium 8.2 L Phosphorus Ferritin AST Lactate Dehydrogenase C-Reactive Protein Total Protein Albumin Lipase Vitamin B12 Arterial Blood Glucose 128 H Valproic Acid Coronavirus (PCR) 05/11/21 05/11/21 05/11/21 05:45 10:30 11:30 WBC RBC Hgb Hct MCV MCH MCHC RDW Plt Count Lymph % (Auto) [place] % (Auto) Lymph # (Auto) [place] # (Auto) Seg Neutrophils % Seg Neuts % (Manual) Lymphocytes % (Manual) Monocytes % (Manual) Seg Neutrophils # Seg Neutrophils # Man Lymphocytes # (Manual) Monocytes # (Manual) PT INR APTT D-Dimer ABG pH POC ABG pCO2 POC ABG pO2 ABG pO2 ABG HCO3 ABG Base Excess ABG Hemoglobin ABG Oxyhemoglobin ABG Sodium ABG Potassium ABG Chloride ABG Glucose Oxyhemoglobin Carboxyhemoglobin Sodium 161 H* Potassium Chloride 117.5 H Carbon Dioxide 37 H BUN 40 H Creatinine 0.7 L Glucose 155 H POC Glucose 112 H 141 H Calcium Phosphorus 2.10 L Ferritin AST Lactate Dehydrogenase C-Reactive Protein Total Protein Albumin Lipase Vitamin B12 Arterial Blood Glucose Valproic Acid Coronavirus (PCR) 05/11/21 05/11/21 05/11/21 15:59 16:40 23:21 WBC RBC Hgb Hct MCV MCH MCHC RDW Plt Count Lymph % (Auto) [place] % (Auto) Lymph # (Auto) [place] # (Auto) Seg Neutrophils % Seg Neuts % (Manual) Lymphocytes % (Manual) Monocytes % (Manual) Seg Neutrophils # Seg Neutrophils # Man Lymphocytes # (Manual) Monocytes # (Manual) PT INR APTT D-Dimer ABG pH POC ABG pCO2 POC ABG pO2 ABG pO2 ABG HCO3 ABG Base Excess ABG Hemoglobin ABG Oxyhemoglobin ABG Sodium ABG Potassium ABG Chloride ABG Glucose Oxyhemoglobin Carboxyhemoglobin Sodium 159 H Potassium Chloride 115.4 H Carbon Dioxide 35 H BUN 44 H Creatinine Glucose 177 H POC Glucose 151 H 184 H Calcium Phosphorus Ferritin AST Lactate Dehydrogenase C-Reactive Protein Total Protein Albumin Lipase Vitamin B12 Arterial Blood Glucose Valproic Acid Coronavirus (PCR) 05/12/21 05/12/21 05/12/21 05:15 05:27 05:56 WBC 11.6 H RBC 3.13 L Hgb 9.4 L Hct 30.9 L MCV 99 H MCH MCHC 30 L RDW 16.0 H Plt Count Lymph % (Auto) [place] % (Auto) Lymph # (Auto) [place] # (Auto) Seg Neutrophils % Seg Neuts % (Manual) Lymphocytes % (Manual) Monocytes % (Manual) Seg Neutrophils # Seg Neutrophils # Man Lymphocytes # (Manual) Monocytes # (Manual) PT INR APTT D-Dimer ABG pH POC ABG pCO2 POC ABG pO2 ABG pO2 107.6 H ABG HCO3 36.8 H ABG Base Excess 9.3 H ABG Hemoglobin 11.2 L ABG Oxyhemoglobin ABG Sodium ABG Potassium ABG Chloride ABG Glucose Oxyhemoglobin Carboxyhemoglobin Sodium Potassium Chloride Carbon Dioxide BUN Creatinine Glucose POC Glucose 163 H Calcium Phosphorus Ferritin AST Lactate Dehydrogenase C-Reactive Protein Total Protein Albumin Lipase Vitamin B12 Arterial Blood Glucose Valproic Acid Coronavirus (PCR) 05/12/21 05/12/21 05/12/21 05:56 11:57 18:07 WBC RBC Hgb Hct MCV MCH MCHC RDW Plt Count Lymph % (Auto) [place] % (Auto) Lymph # (Auto) [place] # (Auto) Seg Neutrophils % Seg Neuts % (Manual) Lymphocytes % (Manual) Monocytes % (Manual) Seg Neutrophils # Seg Neutrophils # Man Lymphocytes # (Manual) Monocytes # (Manual) PT INR APTT D-Dimer ABG pH POC ABG pCO2 POC ABG pO2 ABG pO2 ABG HCO3 ABG Base Excess ABG Hemoglobin ABG Oxyhemoglobin ABG Sodium ABG Potassium ABG Chloride ABG Glucose Oxyhemoglobin Carboxyhemoglobin Sodium 154 H Potassium Chloride 111.4 H Carbon Dioxide 34 H BUN 41 H Creatinine 0.5 L Glucose 185 H POC Glucose 137 H 133 H Calcium Phosphorus 2.40 L Ferritin AST Lactate Dehydrogenase C-Reactive Protein Total Protein Albumin Lipase Vitamin B12 Arterial Blood Glucose Valproic Acid Coronavirus (PCR) 05/13/21 05/13/21 05/13/21 04:37 05:53 05:53 WBC 16.4 H RBC 3.12 L Hgb 9.3 L Hct 29.5 L MCV 95 H MCH MCHC RDW Plt Count 126 L Lymph % (Auto) [place] % (Auto) Lymph # (Auto) [place] # (Auto) Seg Neutrophils % Seg Neuts % (Manual) Lymphocytes % (Manual) Monocytes % (Manual) Seg Neutrophils # Seg Neutrophils # Man Lymphocytes # (Manual) Monocytes # (Manual) PT INR APTT D-Dimer ABG pH 7.490 H POC ABG pCO2 POC ABG pO2 ABG pO2 70.2 L ABG HCO3 36.8 H ABG Base Excess 12.0 H ABG Hemoglobin 9.9 L ABG Oxyhemoglobin ABG Sodium ABG Potassium ABG Chloride ABG Glucose Oxyhemoglobin 94.7 L Carboxyhemoglobin Sodium 151 H Potassium Chloride Carbon Dioxide 33 H BUN 26 H Creatinine 0.3 L Glucose POC Glucose Calcium 8.1 L Phosphorus Ferritin AST Lactate Dehydrogenase C-Reactive Protein Total Protein Albumin Lipase Vitamin B12 Arterial Blood Glucose Valproic Acid Coronavirus (PCR)
--- NOTE | 2021-05-13 14:10 | Progress Note ---
<CARMINE DE GUZMAN - Last Filed: 05/13/21 15:34> Assessment and Plan Assessment and plan: This is a 66-year old with unknown past medical history who resides in a personal correction initially admitted for acute metabolic encephalopathy and COVID pneumonia. Patient decompensated on 05/11 requiring intubation and ventilatory support. Hospital Course to Date: 05/06/2021; patient scheduled for PEG tomorrow N.p.o. status, mild to moderate risk for the procedure No medical contraindication for PEG placement. 05/07/2021; patient scheduled for PEG today Case management working on LTAC versus SNF placement 05/08/2021; status post PEG placement yesterday Start tube feeds per protocol, continuous high flow nasal cannula oxygen 40 L Unable to wean, very poor prognosis, pulmonary following, pending LTAC evaluation 05/09/2021; continue high flow nasal cannula oxygen 35 L. Wean as tolerated Case management considering hospice, discussed with [place] of [place] state yesterday Will follow-up with their plan 05/10/2021; mild hypotension, due to poor nutrition due to risk of aspiration nurse gives only intermittent tube feeding Resume tube feeding with aspiration precautions head end of the bed 45 degrees, reduce the flow rate to 20 to 30 mL intermittently And fluid bolus to 50 mL normal saline intermittently as needed. Patient is critically ill with poor prognosis 05/11: Intubated overnight for airway protection. S/p bronchoscopy this am due to mucus plus and complete white out of the left lung. Repeat CXR with mild improvement. D/W CCM pending on guardian's decision on code status, patient might to be bronched again if remains a full code. Patient remains on high dose pressors, will hold TF for now, continue IVF. Continue to monitor electrolytes, repeat labs ordered 05/12: Patient aeration improved post bronch. Remains on 2 pressors, patient afebrile with no leukocytosis. Will try fluid bolus challenge in attempt to wean off pressors. D/w CCM plan for tracheotomy, surgery consulted. 05/13: Patient tolerated fluid challenge, down to only 4mcg of Levo this am, additional 1L bolus today. Plan to wean off pressors. Continue FWF for the hypernatremia. Gen surgery consulted for possible trach. Assessment and Plan #Acute Metabolic Encephalopathy - Patient remains unresponsive, not on any sedation - CT head with no acute abnormalities - Neurology on consulted - Avoid benzodiazepine to reduce the possibility of delirium - PRN analgesia for CPOT greater than 3 - Patient is a herrera of [facility], contact is Ms. Mattson to discuss clinical updates/consent for procedures ([phone]) #Hypotension #Tachycardia - Remains bordeline hypotensive, St on the monitor - Responded well to the IVF bolus, on low dose pressors today - Additional IVF bolus today. plan to wean off pressors - Maintain adequate perfusion - Continue rehydration with cont. IVF - Continue blood pressure monitor per protocol - Maintain MAP above 65 #Acute Hypoxic Respiratory Failure #COVID Pneumonia #LL Mucus Plug - Presented with hypoxia requiring HHFL - Imagings with bilateral pneumonia and mucous plug - S/p aggressive chest PT - COVID Swab positive - on 05/11 Decompensated was intubated, CXR with complete white out of left lung - Vent setting: A/C-40%,6,24,450 - CCM consulted, appreciate recommendations - 05/11 s/p Bronchoscopy at the bedside - Post Bronch CXR with improved aeration - Continue Nebs per CCM - VAP bundle addressed - Aspiration precaution HOB above 30 - Daily ABG and CXR - Continue SPO2 monitoring for SPO2 goal above 92% #GI:Dysphagia #Severe Protein Calorie Malnutrition - Presented with a BMI 20.3; albumin 2.4 - 05/07 s/p PEG placement by GI - Low dose pressors this am, resume Enteral Nutrition - Nutrition on consult - Continue IVF for now, D/C once TF is at goal - Continue PPI and BR - GI signed off #Hypernatremia #Hyperkalemia- improved - Na remains elevated - Continue FWF and D5W for now - Strict intake and output - Monitor and replace electrolytes as needed - Trend BMP #COVID Pneumonia #Leukocytosis - COVID swab positive - Blood culture and urine culture are negative - Sputum culture NGTD - Patient remains afebrile - Completed IV steroids and Remdesevir course - Continue to F/U on B.cult - Daily CBC monitor #Endo: Glycemic Control - Continue BG check Q6hrs - No SSI at this time - Continue IVF - Avoid hypoglycemia #DVT prophylaxis - Continue AC- Lovenox SubQ - SCDs to bilateral lower extremities while in bed The high probability of a clinically significant, sudden or life threatening deterioration of the [multiple] system(s) required my full and direct attention, intervention and personal management. The aggregate critical care time was [60] minutes. This time is in addition to time spent performing reported procedures but includes the following: [x] Data Review and interpretation [x] Patient assessment and monitoring of vital signs [x] Documentation [x] Medication orders and management Disposition Plan: ICU Total Time Spent with Patient (Minutes): 60 History Interval history: Patient seen and examined at the bedside. Intubated and unresponsive, not on any sedation. Remains on low dose levophed. ANIYA overnight Hospitalist Physical - Constitutional Vitals: Temp Pulse Resp BP Pulse Ox 98.2 F 109 H 31 H 85/50 98 05/13/21 12:00 05/13/21 13:00 05/13/21 13:00 05/13/21 13:00 05/13/21 13:00 General appearance: Present: no acute distress, cachectic, other (On the vent) - EENT Eyes: Present: PERRL - Respiratory Respiratory effort: normal Respiratory: bilateral: rhonchi - Cardiovascular Rhythm: regular Heart Sounds: Present: S1 & S2 - Extremities Extremities: no ischemia, pulses intact, pulses symmetrical Peripheral Pulses: within normal limits - Abdominal General gastrointestinal: soft, non-distended, hypoactive bowel sounds - Integumentary Integumentary: Present: warm, dry - Psychiatric Psychiatric: other (Open eyes with stimuli, not following commands) - Neurologic Neurologic: other (Open eyes with stimuli, not following commands) - Allied Health Allied health notes reviewed: nursing HEART Score - HEART Score Age: 45-65 Risk factors: 1-2 risk factors - Critical Actions Critical Actions: 0-3 pts:0.9-1.7%risk of adverse cardiac event.Candidate for discharge Results - Labs CBC & Chem 7: 05/13/21 05:53 05/13/21 05:53 Labs: Laboratory Last Values WBC 16.4 K/mm3 (4.5-11.0) H 05/13/21 05:53 RBC 3.12 M/mm3 (3.65-5.03) L 05/13/21 05:53 Hgb 9.3 gm/dl (11.8-15.2) L 05/13/21 05:53 Hct 29.5 % (35.5-45.6) L 05/13/21 05:53 MCV 95 fl (84-94) H 05/13/21 05:53 MCH 30 pg (28-32) 05/13/21 05:53 MCHC 32 % (32-34) 05/13/21 05:53 RDW 15.0 % (13.2-15.2) 05/13/21 05:53 Plt Count 126 K/mm3 (140-440) L 05/13/21 05:53 Lymph % (Auto) 4.9 % (13.4-35.0) L 05/11/21 02:30 Mckenzie % (Auto) 10.6 % (0.0-7.3) H 05/11/21 02:30 Eos % (Auto) 0.0 % (0.0-4.3) 05/11/21 02:30 Baso % (Auto) 0.5 % (0.0-1.8) 05/11/21 02:30 Lymph # (Auto) 0.6 K/mm3 (1.2-5.4) L 05/11/21 02:30 Mckenzie # (Auto) 1.3 K/mm3 (0.0-0.8) H 05/11/21 02:30 Eos # (Auto) 0.0 K/mm3 (0.0-0.4) 05/11/21 02:30 Baso # (Auto) 0.1 K/mm3 (0.0-0.1) 05/11/21 02:30 Add Manual Diff Complete 05/06/21 07:02 Total Counted 100 05/06/21 07:02 Seg Neutrophils % 84.0 % (40.0-70.0) H 05/11/21 02:30 Seg Neuts % (Manual) 82.0 % (40.0-70.0) H 05/06/21 07:02 Band Neutrophils % 9.0 % 05/06/21 07:02 Lymphocytes % (Manual) 4.0 % (13.4-35.0) L 05/06/21 07:02 Reactive Lymphs % (Man) 0 % 05/06/21 07:02 Monocytes % (Manual) 5.0 % (0.0-7.3) 05/06/21 07:02 Eosinophils % (Manual) 0 % (0.0-4.3) 05/06/21 07:02 Basophils % (Manual) 0 % (0.0-1.8) 05/06/21 07:02 Metamyelocytes % 0 % 05/06/21 07:02 Myelocytes % 0 % 05/06/21 07:02 Promyelocytes % 0 % 05/06/21 07:02 Blast Cells % 0 % 05/06/21 07:02 Nucleated RBC % Not Reportable 05/06/21 07:02 Seg Neutrophils # 10.4 K/mm3 (1.8-7.7) H 05/11/21 02:30 Seg Neutrophils # Man 9.6 K/mm3 (1.8-7.7) H 05/06/21 07:02 Band Neutrophils # 1.1 K/mm3 05/06/21 07:02 Lymphocytes # (Manual) 0.5 K/mm3 (1.2-5.4) L 05/06/21 07:02 Abs React Lymphs (Man) 0.0 K/mm3 05/06/21 07:02 Monocytes # (Manual) 0.6 K/mm3 (0.0-0.8) 05/06/21 07:02 Eosinophils # (Manual) 0.0 K/mm3 (0.0-0.4) 05/06/21 07:02 Basophils # (Manual) 0.0 K/mm3 (0.0-0.1) 05/06/21 07:02 Metamyelocytes # 0.0 K/mm3 05/06/21 07:02 Myelocytes # 0.0 K/mm3 05/06/21 07:02 Promyelocytes # 0.0 K/mm3 05/06/21 07:02 Blast Cells # 0.0 K/mm3 05/06/21 07:02 WBC Morphology Not Reportable 05/06/21 07:02 Hypersegmented Neuts Not Reportable 05/06/21 07:02 Hyposegmented Neuts Not Reportable 05/06/21 07:02 Hypogranular Neuts Not Reportable 05/06/21 07:02 Smudge Cells Not Reportable 05/06/21 07:02 Toxic Granulation Not Reportable 05/06/21 07:02 Toxic Vacuolation Not Reportable 05/06/21 07:02 Dohle Bodies Not Reportable 05/06/21 07:02 Pelger-Huet Anomaly Not Reportable 05/06/21 07:02 Jeannette Rods Not Reportable 05/06/21 07:02 Platelet Estimate Consistent w auto 05/06/21 07:02 Clumped Platelets Not Reportable 05/06/21 07:02 Plt Clumps, EDTA Not Reportable 05/06/21 07:02 Large Platelets Not Reportable 05/06/21 07:02 Giant Platelets Not Reportable 05/06/21 07:02 Platelet Satelliting Not Reportable 05/06/21 07:02 Plt Morphology Comment Not Reportable 05/06/21 07:02 RBC Morphology Normal 05/06/21 07:02 Dimorphic RBCs Not Reportable 05/06/21 07:02 Polychromasia Not Reportable 05/06/21 07:02 Hypochromasia Not Reportable 05/06/21 07:02 Poikilocytosis Not Reportable 05/06/21 07:02 Anisocytosis Not Reportable 05/06/21 07:02 Microcytosis Not Reportable 05/06/21 07:02 Macrocytosis Not Reportable 05/06/21 07:02 Spherocytes Not Reportable 05/06/21 07:02 Pappenheimer Bodies Not Reportable 05/06/21 07:02 Sickle Cells Not Reportable 05/06/21 07:02 Target Cells Not Reportable 05/06/21 07:02 Tear Drop Cells Not Reportable 05/06/21 07:02 Ovalocytes Not Reportable 05/06/21 07:02 Helmet Cells Not Reportable 05/06/21 07:02 William-Bramwell Bodies Not Reportable 05/06/21 07:02 Arbon Rings Not Reportable 05/06/21 07:02 Orefield Cells Not Reportable 05/06/21 07:02 Bite Cells Not Reportable 05/06/21 07:02 Crenated Cell Not Reportable 05/06/21 07:02 Elliptocytes Not Reportable 05/06/21 07:02 Acanthocytes (Spur) Not Reportable 05/06/21 07:02 Rouleaux Not Reportable 05/06/21 07:02 Hemoglobin C Crystals Not Reportable 05/06/21 07:02 Schistocytes Not Reportable 05/06/21 07:02 Malaria parasites Not Reportable 05/06/21 07:02 ESR 60 mm/Hr (0-20) 05/04/21 13:28 Steve Bodies Not Reportable 05/06/21 07:02 Hem Pathologist Commnt No 05/06/21 07:02 PT 16.0 Sec. (12.2-14.9) H 05/07/21 07:28 INR 1.16 (0.87-1.13) H 05/07/21 07:28 APTT 43.8 Sec. (24.2-36.6) H 05/07/21 07:28 D-Dimer 690.97 ng/mlDDU (0-234) H 04/30/21 06:20 ABG pH 7.490 pH Units (7.350-7.450) H 05/13/21 04:37 POC ABG pCO2 129.5 mmHg (32.0-48.0) H 05/11/21 03:20 ABG pCO2 49.3 mm Hg 05/13/21 04:37 POC ABG pO2 139.1 mmHg (83-108) H 05/11/21 03:20 ABG pO2 70.2 mm Hg (80.0-90.0) L 05/13/21 04:37 POC ABG HCO3 37.8 05/11/21 03:20 ABG HCO3 36.8 mmol/L (20.0-26.0) H 05/13/21 04:37 ABG O2 Saturation 96.6 % (95.0-99.0) 05/13/21 04:37 ABG O2 Content 13.2 (0.0-44) 05/13/21 04:37 POC ABG Base Excess 4.9 05/11/21 03:20 ABG Base Excess 12.0 mmol/L (-2.0-3.0) H 05/13/21 04:37 ABG Hemoglobin 9.9 gm/dl (14.0-18.0) L 05/13/21 04:37 ABG Oxyhemoglobin 98.4 (94-98) H 05/11/21 03:20 ABG Carboxyhemoglobin 1.5 % (0.0-5.0) 05/13/21 04:37 ABG Methemoglobin 0.6 % (0.0-1.5) 05/13/21 04:37 ABG Sodium 154.5 mmol/L (136.0-145.0) H 05/11/21 03:20 ABG Potassium 5.4 mmol/L (3.40-4.50) H 05/11/21 03:20 ABG Chloride 114.0 mmol/L (98-107) H 05/11/21 03:20 ABG Glucose 128 mg/dL (65-95) H 05/11/21 03:20 Oxyhemoglobin 94.7 % (95.0-99.0) L 05/13/21 04:37 Carboxyhemoglobin 0.3 (0.5-1.5) L 05/11/21 03:20 FiO2 40 % 05/13/21 04:37 FiO2 % 100.0 05/11/21 03:20 Sodium 151 mmol/L (137-145) H 05/13/21 05:53 Potassium 4.4 mmol/L (3.6-5.0) 05/13/21 05:53 Chloride 106.9 mmol/L (98-107) 05/13/21 05:53 Carbon Dioxide 33 mmol/L (22-30) H 05/13/21 05:53 Anion Gap 16 mmol/L 05/13/21 05:53 BUN 26 mg/dL (9-20) H 05/13/21 05:53 Creatinine 0.3 mg/dL (0.8-1.3) L 05/13/21 05:53 Estimated GFR > 60 ml/min 05/13/21 05:53 BUN/Creatinine Ratio 87 % 05/13/21 05:53 Glucose 99 mg/dL (75-100) 05/13/21 05:53 POC Glucose 102 mg/dL (70-105) 05/13/21 11:30 Lactic Acid 1.20 mmol/L (0.7-2.0) 04/21/21 20:26 Calcium 8.1 mg/dL (8.4-10.2) L 05/13/21 05:53 Phosphorus 2.40 mg/dL (2.5-4.5) L 05/12/21 05:56 Magnesium 2.30 mg/dL (1.7-2.3) 05/12/21 05:56 Ferritin 930.1 ng/mL (30.0-300.0) H 04/30/21 06:20 Total Bilirubin 0.70 mg/dL (0.1-1.2) 04/29/21 04:00 AST 63 units/L (5-40) H 04/29/21 04:00 ALT 37 units/L (7-56) 04/29/21 04:00 Alkaline Phosphatase 58 units/L (35-129) 04/29/21 04:00 Lactate Dehydrogenase 423 units/L (91-180) H 04/30/21 06:20 C-Reactive Protein 15.40 mg/dL (0.00-1.30) H 05/04/21 13:28 Total Protein 5.6 g/dL (6.3-8.2) L 04/29/21 04:00 Albumin 2.4 g/dL (3.9-5) L 04/29/21 04:00 Albumin/Globulin Ratio 0.8 % 04/29/21 04:00 Lipase 7 units/L (13-60) L 04/21/21 16:08 Vitamin B12 1039 pg/mL (211-911) H 04/24/21 07:56 Procalcitonin 0.92 ng/mL (<0.15) 05/05/21 09:30 TSH 1.330 mlU/mL (0.270-4.200) 04/24/21 07:56 Free T4 1.03 ng/dL (0.76-1.46) 04/24/21 07:56 Arterial Blood Glucose 128 mg/dL (65-95) H 05/11/21 03:20 Arterial Blood Ionized Calcium 4.7 mg/dL (4.6-5.3) 05/11/21 03:20 Urine Color Leticia (Yellow) 04/21/21 Unknown Urine Turbidity Clear (Clear) 04/21/21 Unknown Urine pH 5.0 (5.0-7.0) 04/21/21 Unknown Ur Specific [place] 1.027 (1.003-1.030) 04/21/21 Unknown Urine Protein 100 mg/dl mg/dL (Negative) 04/21/21 Unknown Urine Glucose (UA) Neg mg/dL (Negative) 04/21/21 Unknown Urine Ketones 20 mg/dL (Negative) 04/21/21 Unknown Urine Blood Mod (Negative) 04/21/21 Unknown Urine Nitrite Neg (Negative) 04/21/21 Unknown Urine Bilirubin Neg (Negative) 04/21/21 Unknown Urine Urobilinogen 4.0 mg/dL (<2.0) 04/21/21 Unknown Ur Leukocyte Esterase Neg (Negative) 04/21/21 Unknown Urine WBC (Auto) < 1.0 /HPF (0.0-6.0) 04/21/21 Unknown Urine RBC (Auto) < 1.0 /HPF (0.0-6.0) 04/21/21 Unknown Urine Mucus Few /HPF 04/21/21 Unknown Valproic Acid 10.9 ug/mL (50-100) L 05/04/21 13:28 Coronavirus (PCR) Positive (Negative) A 05/09/21 Unknown Microbiology: Microbiology 05/11/21 02:51 Tracheal Aspirate Sputum Culture - Preliminary [place]/IV: Voiding Method Indwelling Catheter Active Medications - Current Medications Current Medications: Generic Name Dose Route Start Last Admin Trade Name Freq PRN Reason Stop Dose Admin Acetaminophen 650 mg 04/21/21 22:31 05/08/21 23:18 Acetaminophen 325 Mg Tab PO 650 mg Q4H PRN Administration Pain MILD(1-3)/Fever >100.5/RAY Albuterol 2.5 mg 05/09/21 12:00 Albuterol 2.5 Mg/3 Ml Nebu IH Q4HRT PRN Shortness Of Breath Lipase/Protease/Amylase 1 each 05/07/21 13:04 Lipase 10,500/Protease 25,000/Amylase 43,750 (Units) Dr Espinoza FEEDTUBE PRN PRN For Clogged Feeding Tube Enoxaparin Sodium 40 mg 05/11/21 22:00 05/12/21 21:36 Enoxaparin 40 Mg/0.4 Ml Inj SUB-Q 40 mg QDAY@2200 EDDIE Administration Protocol Famotidine 20 mg 05/13/21 10:00 05/13/21 10:28 Famotidine 20 Mg Tab FEEDTUBE 20 mg BID EDDIE Administration Fentanyl 50 mcg 05/11/21 19:33 05/11/21 20:27 Fentanyl 100 Mcg/2 Ml Inj IV 50 mcg Q10MIN PRN Administration ANALGESIA NORepinephrine/NS 8 MG-250 ML 8 mg in 250 mls @ 3.75 mls/hr 05/11/21 02:00 05/13/21 13:06 Norepinephrine/Ns 8 Mg-250 Ml (Double Conc) IV 4 mcg/min TITRATE EDDIE 7.5 mls/hr Titration Protocol 2 MCG/MIN Vasopressin 20 unit/ Sodium 101 mls @ 9.09 mls/hr 05/11/21 04:00 05/13/21 08:13 Chloride IV 0 units/min TITR EDDIE 0 mls/hr Titration Protocol 0.03 UNITS/MIN Fentanyl Citrate 2,000 mcg in 100 mls @ 2.64 mls/hr 05/11/21 20:00 Fentanyl Drip Premix IV TITR EDDIE Protocol 1 MCG/KG/HR Dextrose 1,000 mls @ 75 mls/hr 05/12/21 21:00 05/13/21 08:18 D5w IV 05/14/21 10:19 75 mls/hr DIRECT EDDIE Administration Lorazepam 2 mg 05/11/21 01:43 Lorazepam 2 Mg/Ml Vial IV Q1H PRN Seizures Metoclopramide HCl 10 mg 04/21/21 22:31 Metoclopramide 10 Mg/2 Ml Inj IV Q6H PRN Nausea And Vomiting Metoprolol Tartrate 2.5 mg 05/06/21 16:12 05/11/21 15:11 Metoprolol Tartrate 5 Mg/5 Ml Inj IV 2.5 mg Q6HR PRN Administration Tachyarrhythmias Metoprolol Tartrate 12.5 mg 05/13/21 10:00 05/13/21 10:00 Metoprolol Tartrate 25 Mg Tab FEEDTUBE Not Given BID EDDIE Ondansetron HCl 4 mg 04/21/21 22:31 Ondansetron 4 Mg/2 Ml Inj IV Q8H PRN Nausea And Vomiting Senna 17.2 mg 05/13/21 22:00 Sennosides 8.6 Mg Tab FEEDTUBE QHS EDDIE Simple Syrup 15 ml 05/07/21 13:04 Simple Syrup 15 Ml FEEDTUBE PRN PRN Hypoglycemia Simple Syrup 30 ml 05/07/21 13:04 Simple Syrup 15 Ml FEEDTUBE PRN PRN Hypoglycemia Sodium Bicarbonate 325 mg 05/07/21 13:04 Sodium Bicarbonate 325 Mg Tab FEEDTUBE PRN PRN For Clogged Feeding Tube Sodium Chloride 10 ml 04/22/21 10:00 05/13/21 10:00 Sodium Chloride 0.9% 10 Ml Flush Syringe IV 10 ml BID EDDIE Administration Sodium Chloride 10 ml 04/21/21 22:31 Sodium Chloride 0.9% 10 Ml Flush Syringe IV PRN PRN LINE FLUSH Valproic Acid 250 mg 05/13/21 22:00 Valproic Acid 250 Mg/5 Ml Oral Liqd FEEDTUBE QHS [facility] Nutrition/Malnutrition Assess - Dietary Evaluation Nutrition/Malnutrition Findings: Nutrition Notes Start: 04/22/21 18:07 Freq: Status: Active Protocol: Document 05/12/21 13:28 RICKY (Rec: 05/12/21 13:54 RICKY [id number]) Nutrition Notes Need for Assessment generated from: Low BMI Initial or Follow up Brief Note Current Diet TF - Nepro w/CARBSTEADY @ 40 ml/hr (since L 05/11). Labs/Tests 05/12: Na 154, Cl 111.4, CO2 34, BUN 41, Crea 0.5, Glu 185, Phos 2.4. Pertinent Medications 05/12: Vasopressin 20 units in 101 ml @ 9.09 ml/hr, others nutritionally unremarkable. Height 6 ft Weight 52.8 kg [place] Body Weight (kg) 80.90 BMI 15.7 Weight change and time frame Discrepancy of 14.7 Kg body weight loss in 1 day reported. Likely a mistake. Weight Status Underweight Subjective/Other Information RD consult for Low BMI assessment. Likely a mistake meassurement, unable to contact RN to corroborate. F/U to check for actual Body Weight and assess accordingly. Pt still on pressors, Na lab still high, and continues on Mechanical ventilation. Percent of energy/protein needs met: Prescribed Nepro w/CARBSTEADY @ 40 ml/hr provides for energy /protein needs (1,728 Kcal/78 g) during LOS, 96% Kcal; 96% AA. #1 Nutrition Diagnosis Inadequate oral intake Diagnosis Progress(for reassessment Continues documentation) Nutrition Intervention Nutrition Support: Nepro w/CARBSTEADY @ 40 ml/hr. Flush: 200 ml water Q 4 hr, or as per MD. Kcal 1,728 Protein (gm) 78 Carbohydrates (gm) 155 Fat (gm) 92 Fluid (mL) 698 Fiber (gm) 12 % RDI: 96% Kcal; 96% AA. Goal #1 Provide at least 75% of energy /protein needs through Enteral Feeding during LOS. Follow-Up By: 05/15/21 Additional Comments Continue monitoring TF tolerance and BM. Check on body weight. <ELIJAH ROBLERO - Last Filed: 05/16/21 12:16> Assessment and Plan Assessment and plan: I saw and evaluated the patient. Discussed with the nurse practitioner and agree with their findings and plan as documented in this note. Hospitalist Physical - Constitutional Vitals: Temp Pulse Resp BP Pulse Ox 97.8 F 96 H 27 H 86/56 96 05/16/21 11:19 05/16/21 08:30 05/16/21 08:00 05/16/21 08:30 05/16/21 10:25 Results - Labs CBC & Chem 7: 05/16/21 04:00 05/16/21 04:00 Labs: Laboratory Last Values WBC 20.8 K/mm3 (4.5-11.0) H 05/16/21 04:00 RBC 2.91 M/mm3 (3.65-5.03) L 05/16/21 04:00 Hgb 8.9 gm/dl (11.8-15.2) L 05/16/21 04:00 Hct 27.5 % (35.5-45.6) L 05/16/21 04:00 MCV 94 fl (84-94) 05/16/21 04:00 MCH 30 pg (28-32) 05/16/21 04:00 MCHC 32 % (32-34) 05/16/21 04:00 RDW 14.7 % (13.2-15.2) 05/16/21 04:00 Plt Count 108 K/mm3 (140-440) L 05/16/21 04:00 Lymph % (Auto) 4.9 % (13.4-35.0) L 05/11/21 02:30 Mckenzie % (Auto) 10.6 % (0.0-7.3) H 05/11/21 02:30 Eos % (Auto) 0.0 % (0.0-4.3) 05/11/21 02:30 Baso % (Auto) 0.5 % (0.0-1.8) 05/11/21 02:30 Lymph # (Auto) 0.6 K/mm3 (1.2-5.4) L 05/11/21 02:30 Mckenzie # (Auto) 1.3 K/mm3 (0.0-0.8) H 05/11/21 02:30 Eos # (Auto) 0.0 K/mm3 (0.0-0.4) 05/11/21 02:30 Baso # (Auto) 0.1 K/mm3 (0.0-0.1) 05/11/21 02:30 Add Manual Diff Complete 05/06/21 07:02 Total Counted 100 05/06/21 07:02 Seg Neutrophils % 84.0 % (40.0-70.0) H 05/11/21 02:30 Seg Neuts % (Manual) 82.0 % (40.0-70.0) H 05/06/21 07:02 Band Neutrophils % 9.0 % 05/06/21 07:02 Lymphocytes % (Manual) 4.0 % (13.4-35.0) L 05/06/21 07:02 Reactive Lymphs % (Man) 0 % 05/06/21 07:02 Monocytes % (Manual) 5.0 % (0.0-7.3) 05/06/21 07:02 Eosinophils % (Manual) 0 % (0.0-4.3) 05/06/21 07:02 Basophils % (Manual) 0 % (0.0-1.8) 05/06/21 07:02 Metamyelocytes % 0 % 05/06/21 07:02 Myelocytes % 0 % 05/06/21 07:02 Promyelocytes % 0 % 05/06/21 07:02 Blast Cells % 0 % 05/06/21 07:02 Nucleated RBC % Not Reportable 05/06/21 07:02 Seg Neutrophils # 10.4 K/mm3 (1.8-7.7) H 05/11/21 02:30 Seg Neutrophils # Man 9.6 K/mm3 (1.8-7.7) H 05/06/21 07:02 Band Neutrophils # 1.1 K/mm3 05/06/21 07:02 Lymphocytes # (Manual) 0.5 K/mm3 (1.2-5.4) L 05/06/21 07:02 Abs React Lymphs (Man) 0.0 K/mm3 05/06/21 07:02 Monocytes # (Manual) 0.6 K/mm3 (0.0-0.8) 05/06/21 07:02 Eosinophils # (Manual) 0.0 K/mm3 (0.0-0.4) 05/06/21 07:02 Basophils # (Manual) 0.0 K/mm3 (0.0-0.1) 05/06/21 07:02 Metamyelocytes # 0.0 K/mm3 05/06/21 07:02 Myelocytes # 0.0 K/mm3 05/06/21 07:02 Promyelocytes # 0.0 K/mm3 05/06/21 07:02 Blast Cells # 0.0 K/mm3 05/06/21 07:02 WBC Morphology Not Reportable 05/06/21 07:02 Hypersegmented Neuts Not Reportable 05/06/21 07:02 Hyposegmented Neuts Not Reportable 05/06/21 07:02 Hypogranular Neuts Not Reportable 05/06/21 07:02 Smudge Cells Not Reportable 05/06/21 07:02 Toxic Granulation Not Reportable 05/06/21 07:02 Toxic Vacuolation Not Reportable 05/06/21 07:02 Dohle Bodies Not Reportable 05/06/21 07:02 Pelger-Huet Anomaly Not Reportable 05/06/21 07:02 Jeannette Rods Not Reportable 05/06/21 07:02 Platelet Estimate Consistent w auto 05/06/21 07:02 Clumped Platelets Not Reportable 05/06/21 07:02 Plt Clumps, EDTA Not Reportable 05/06/21 07:02 Large Platelets Not Reportable 05/06/21 07:02 Giant Platelets Not Reportable 05/06/21 07:02 Platelet Satelliting Not Reportable 05/06/21 07:02 Plt Morphology Comment Not Reportable 05/06/21 07:02 RBC Morphology Normal 05/06/21 07:02 Dimorphic RBCs Not Reportable 05/06/21 07:02 Polychromasia Not Reportable 05/06/21 07:02 Hypochromasia Not Reportable 05/06/21 07:02 Poikilocytosis Not Reportable 05/06/21 07:02 Anisocytosis Not Reportable 05/06/21 07:02 Microcytosis Not Reportable 05/06/21 07:02 Macrocytosis Not Reportable 05/06/21 07:02 Spherocytes Not Reportable 05/06/21 07:02 Pappenheimer Bodies Not Reportable 05/06/21 07:02 Sickle Cells Not Reportable 05/06/21 07:02 Target Cells Not Reportable 05/06/21 07:02 Tear Drop Cells Not Reportable 05/06/21 07:02 Ovalocytes Not Reportable 05/06/21 07:02 Helmet Cells Not Reportable 05/06/21 07:02 William-Bramwell Bodies Not Reportable 05/06/21 07:02 Arbon Rings Not Reportable 05/06/21 07:02 Canelo Cells Not Reportable 05/06/21 07:02 Bite Cells Not Reportable 05/06/21 07:02 Crenated Cell Not Reportable 05/06/21 07:02 Elliptocytes Not Reportable 05/06/21 07:02 Acanthocytes (Spur) Not Reportable 05/06/21 07:02 Rouleaux Not Reportable 05/06/21 07:02 Hemoglobin C Crystals Not Reportable 05/06/21 07:02 Schistocytes Not Reportable 05/06/21 07:02 Malaria parasites Not Reportable 05/06/21 07:02 ESR 60 mm/Hr (0-20) 05/04/21 13:28 Steve Bodies Not Reportable 05/06/21 07:02 Hem Pathologist Commnt No 05/06/21 07:02 PT 14.6 Sec. (12.2-14.9) 05/15/21 05:00 INR 1.03 (0.87-1.13) 05/15/21 05:00 APTT 43.8 Sec. (24.2-36.6) H 05/07/21 07:28 D-Dimer 690.97 ng/mlDDU (0-234) H 04/30/21 06:20 ABG pH 7.514 pH Units (7.350-7.450) H 05/16/21 03:09 POC ABG pCO2 129.5 mmHg (32.0-48.0) H 05/11/21 03:20 ABG pCO2 42.9 mm Hg 05/16/21 03:09 POC ABG pO2 139.1 mmHg (83-108) H 05/11/21 03:20 ABG pO2 66.8 mm Hg (80.0-90.0) L 05/16/21 03:09 POC ABG HCO3 37.8 05/11/21 03:20 ABG HCO3 33.8 mmol/L (20.0-26.0) H 05/16/21 03:09 ABG O2 Saturation 96.2 % (95.0-99.0) 05/16/21 03:09 ABG O2 Content 11.8 (0.0-44) 05/16/21 03:09 POC ABG Base Excess 4.9 05/11/21 03:20 ABG Base Excess 9.9 mmol/L (-2.0-3.0) H 05/16/21 03:09 ABG Hemoglobin 8.9 gm/dl (14.0-18.0) L 05/16/21 03:09 ABG Oxyhemoglobin 98.4 (94-98) H 05/11/21 03:20 ABG Carboxyhemoglobin 1.5 % (0.0-5.0) 05/16/21 03:09 ABG Methemoglobin 0.5 % (0.0-1.5) 05/16/21 03:09 ABG Sodium 154.5 mmol/L (136.0-145.0) H 05/11/21 03:20 ABG Potassium 5.4 mmol/L (3.40-4.50) H 05/11/21 03:20 ABG Chloride 114.0 mmol/L (98-107) H 05/11/21 03:20 ABG Glucose 128 mg/dL (65-95) H 05/11/21 03:20 Oxyhemoglobin 94.2 % (95.0-99.0) L 05/16/21 03:09 Carboxyhemoglobin 0.3 (0.5-1.5) L 05/11/21 03:20 FiO2 30 % 05/16/21 03:09 FiO2 % 100.0 05/11/21 03:20 Sodium 148 mmol/L (137-145) H 05/16/21 04:00 Potassium 3.1 mmol/L (3.6-5.0) L 05/16/21 04:00 Chloride 107.1 mmol/L (98-107) H 05/16/21 04:00 Carbon Dioxide 32 mmol/L (22-30) H 05/16/21 04:00 Anion Gap 12 mmol/L 05/16/21 04:00 BUN 17 mg/dL (9-20) 05/16/21 04:00 Creatinine 0.2 mg/dL (0.8-1.3) L 05/16/21 04:00 Estimated GFR > 60 ml/min 05/16/21 04:00 BUN/Creatinine Ratio 85 % 05/16/21 04:00 Glucose 122 mg/dL (75-100) H 05/16/21 04:00 POC Glucose 103 mg/dL (70-105) 05/16/21 11:10 Lactic Acid 1.20 mmol/L (0.7-2.0) 04/21/21 20:26 Calcium 7.8 mg/dL (8.4-10.2) L 05/16/21 04:00 Phosphorus 3.40 mg/dL (2.5-4.5) D 05/15/21 05:00 Magnesium 1.90 mg/dL (1.7-2.3) 05/15/21 05:00 Ferritin 930.1 ng/mL (30.0-300.0) H 04/30/21 06:20 Total Bilirubin 0.70 mg/dL (0.1-1.2) 04/29/21 04:00 AST 63 units/L (5-40) H 04/29/21 04:00 ALT 37 units/L (7-56) 04/29/21 04:00 Alkaline Phosphatase 58 units/L (35-129) 04/29/21 04:00 Lactate Dehydrogenase 423 units/L (91-180) H 04/30/21 06:20 C-Reactive Protein 15.40 mg/dL (0.00-1.30) H 05/04/21 13:28 Total Protein 5.6 g/dL (6.3-8.2) L 04/29/21 04:00 Albumin 2.4 g/dL (3.9-5) L 04/29/21 04:00 Albumin/Globulin Ratio 0.8 % 04/29/21 04:00 Lipase 7 units/L (13-60) L 04/21/21 16:08 Vitamin B12 1039 pg/mL (211-911) H 04/24/21 07:56 Procalcitonin 0.92 ng/mL (<0.15) 05/05/21 09:30 TSH 1.330 mlU/mL (0.270-4.200) 04/24/21 07:56 Free T4 1.03 ng/dL (0.76-1.46) 04/24/21 07:56 Arterial Blood Glucose 128 mg/dL (65-95) H 05/11/21 03:20 Arterial Blood Ionized Calcium 4.7 mg/dL (4.6-5.3) 05/11/21 03:20 Urine Color [place] (Yellow) 04/21/21 Unknown Urine Turbidity Clear (Clear) 04/21/21 Unknown Urine pH 5.0 (5.0-7.0) 04/21/21 Unknown Ur Specific [place] 1.027 (1.003-1.030) 04/21/21 Unknown Urine Protein 100 mg/dl mg/dL (Negative) 04/21/21 Unknown Urine Glucose (UA) Neg mg/dL (Negative) 04/21/21 Unknown Urine Ketones 20 mg/dL (Negative) 04/21/21 Unknown Urine Blood Mod (Negative) 04/21/21 Unknown Urine Nitrite Neg (Negative) 04/21/21 Unknown Urine Bilirubin Neg (Negative) 04/21/21 Unknown Urine Urobilinogen 4.0 mg/dL (<2.0) 04/21/21 Unknown Ur Leukocyte Esterase Neg (Negative) 04/21/21 Unknown Urine WBC (Auto) < 1.0 /HPF (0.0-6.0) 04/21/21 Unknown Urine RBC (Auto) < 1.0 /HPF (0.0-6.0) 04/21/21 Unknown Urine Mucus Few /HPF 04/21/21 Unknown Valproic Acid 10.9 ug/mL (50-100) L 05/04/21 13:28 Coronavirus (PCR) Positive (Negative) A 05/09/21 Unknown [place]/IV: Voiding Method Indwelling Catheter Active Medications - Current Medications Current Medications: Generic Name Dose Route Start Last Admin Trade Name Freq PRN Reason Stop Dose Admin Acetaminophen 650 mg 04/21/21 22:31 05/14/21 07:28 Acetaminophen 325 Mg Tab PO 650 mg Q4H PRN Administration Pain MILD(1-3)/Fever >100.5/RAY Albuterol 2.5 mg 05/09/21 12:00 Albuterol 2.5 Mg/3 Ml Nebu IH Q4HRT PRN Shortness Of Breath Lipase/Protease/Amylase 1 each 05/07/21 13:04 Lipase 10,500/Protease 25,000/Amylase 43,750 (Units) Dr Cap FEEDTUBE PRN PRN For Clogged Feeding Tube Enoxaparin Sodium 40 mg 05/11/21 22:00 05/15/21 21:47 Enoxaparin 40 Mg/0.4 Ml Inj SUB-Q 40 mg QDAY@2200 EDDIE Administration Protocol Famotidine 20 mg 05/13/21 10:00 05/16/21 09:06 Famotidine 20 Mg Tab FEEDTUBE 20 mg BID EDDIE Administration Fentanyl 50 mcg 05/11/21 19:33 05/11/21 20:27 Fentanyl 100 Mcg/2 Ml Inj IV 50 mcg Q10MIN PRN Administration ANALGESIA Hydrocortisone Sodium Succinate 100 mg 05/14/21 12:00 05/16/21 05:05 Hydrocortisone Sod Succ 100 Mg/2 Ml Vial IV 100 mg Q8HR EDDIE Administration NORepinephrine/NS 8 MG-250 ML 8 mg in 250 mls @ 3.75 mls/hr 05/11/21 02:00 05/16/21 00:40 Norepinephrine/Ns 8 Mg-250 Ml (Double Conc) IV 3 mcg/min TITRATE EDDIE 5.625 mls/hr Titration Protocol 2 MCG/MIN Vasopressin 20 unit/ Sodium 101 mls @ 9.09 mls/hr 05/11/21 04:00 05/13/21 08:13 Chloride IV 0 units/min TITR EDDIE 0 mls/hr Titration Protocol 0.03 UNITS/MIN Fentanyl Citrate 2,000 mcg in 100 mls @ 2.64 mls/hr 05/11/21 20:00 Fentanyl Drip Premix IV TITR EDDIE Protocol 1 MCG/KG/HR Dextrose 1,000 mls @ 75 mls/hr 05/15/21 06:00 05/15/21 16:15 D5w IV 75 mls/hr DIRECT EDDIE Administration Lorazepam 2 mg 05/11/21 01:43 Lorazepam 2 Mg/Ml Vial IV Q1H PRN Seizures Metoclopramide HCl 10 mg 04/21/21 22:31 Metoclopramide 10 Mg/2 Ml Inj IV Q6H PRN Nausea And Vomiting Metoprolol Tartrate 2.5 mg 05/06/21 16:12 05/14/21 07:39 Metoprolol Tartrate 5 Mg/5 Ml Inj IV 2.5 mg Q6HR PRN Administration Tachyarrhythmias Ondansetron HCl 4 mg 04/21/21 22:31 Ondansetron 4 Mg/2 Ml Inj IV Q8H PRN Nausea And Vomiting Senna 17.2 mg 05/13/21 22:00 05/15/21 21:47 Sennosides 8.6 Mg Tab FEEDTUBE 17.2 mg QHS EDDIE Administration Simple Syrup 15 ml 05/07/21 13:04 Simple Syrup 15 Ml FEEDTUBE PRN PRN Hypoglycemia Simple Syrup 30 ml 05/07/21 13:04 Simple Syrup 15 Ml FEEDTUBE PRN PRN Hypoglycemia Sodium Bicarbonate 325 mg 05/07/21 13:04 Sodium Bicarbonate 325 Mg Tab FEEDTUBE PRN PRN For Clogged Feeding Tube Sodium Chloride 10 ml 04/22/21 10:00 05/16/21 09:06 Sodium Chloride 0.9% 10 Ml Flush Syringe IV 10 ml BID EDDIE Administration Sodium Chloride 10 ml 04/21/21 22:31 Sodium Chloride 0.9% 10 Ml Flush Syringe IV PRN PRN LINE FLUSH Valproic Acid 250 mg 05/13/21 22:00 05/15/21 21:47 Valproic Acid 250 Mg/5 Ml Oral Liqd FEEDTUBE 250 mg QHS EDDIE Administration Nutrition/Malnutrition Assess - Dietary Evaluation Nutrition/Malnutrition Findings: Nutrition Notes Start: 04/22/21 18:07 Freq: Status: Active Protocol: Document 05/15/21 15:28 GABINO (Rec: 05/15/21 15:35 COUNTS INCLUDE 234 BEDS AT THE [facility] [id number]) Nutrition Notes Initial or Follow up Reassessment Current Diagnosis Respiratory Failure Other Pertinent Diagnosis COVID-19 pneu, encephalopathy Current Diet NPO Labs/Tests Na 147 Pertinent Medications D5W at 75ml/hr, Solucortef, Levophed gtt Height 6 ft Weight 53.5 kg [place] Body Weight (kg) 80.90 BMI 16.0 Subjective/Other Information Unable to reach RN to discuss wt discrepancy. TF on hold for trach placement today. Pt remains on vent support. Burn Absent Trauma Absent #1 Nutrition Diagnosis Inadequate oral intake Diagnosis Progress(for reassessment Continues documentation) Is patient on ventilator? Yes Is Patient Ambulatory and/or Out of Bed No REE-([place]-confined to bed) 1641.108 Kcal/Kg value to use for calculation 34 Approximate Energy Requirements Using 1819 kcal/Kg Calculation Used for Recommendations Kcal/kg Additional Notes Pro needs 1.2-2g/k-107g/ day Fluid needs 1ml/kcal Nutrition Intervention Nutrition Support: When feasible, resume Nepro at 40ml/hr with 200ml water flush q4h Goal #1 Resume TF to meet nutrient needs Follow-Up By: 05/18/21 Additional Comments F/U: TF restart, Na lab/water flushes, vent support
[2021-05-13] MEDS: NORepinephrine/NS 8 MG-250 ML 8 MG/250 ML INFUS..BTL IV SCH (19:27)
[2021-05-13] MEDS: VALPROIC ACID 250 MG/5 ML ORAL LIQD FEEDTUBE SCH (21:22)
[2021-05-13] MEDS: SENNOSIDES 8.6 MG TAB FEEDTUBE SCH (21:23)
[2021-05-13] MEDS: ENOXAPARIN 40 MG/0.4 ML INJ SUB-Q SCH (21:27)
[2021-05-14] MEDS: FREE WATER PO SCH ×5 (05:17→23:21)
[2021-05-14 05:34] LABS: Hematocrit 29.4 % (35.5-45.6); Hemoglobin 9.3 gm/dl (11.8-15.2); Mean Corpuscular HGB Conc 32 % (32-34); Mean Corpuscular Volume 94 fl (84-94); Platelet Count 130 K/mm3 (140-440); Red Blood Count 3.12 M/mm3 (3.65-5.03); Red Cell Distribution Width 15.2 % (13.2-15.2)
[2021-05-14 05:47] LABS: Blood Urea Nitrogen 17 mg/dL (9-20); Calcium 8.5 mg/dL (8.4-10.2); Hemolysis Index 2
[2021-05-14 05:50] LABS: BUN/Creatinine Ratio 85
[2021-05-14] MEDS: ACETAMINOPHEN 325 MG TAB PO PRN (07:28)
[2021-05-14] MEDS: NORepinephrine/NS 8 MG-250 ML 8 MG/250 ML INFUS..BTL IV SCH ×2 (07:29→18:40)
[2021-05-14] MEDS: METOPROLOL TARTRATE 5 MG/5 ML INJ IV PRN (07:39)
[2021-05-14] MEDS ORDERED: POTASSIUM PHOSPHATE 15 MMOL in SODIUM CHLORIDE 0.9% 250ML 250 ML IV SCH (08:30)
[2021-05-14] MEDS ORDERED: POTASSIUM CHLORIDE 20 MEQ PACKET FEEDTUBE SCH (09:00)
[2021-05-14] MEDS ORDERED: LACTATED RINGERS 1,000 ML IV ONE (09:00)
[2021-05-14] MEDS: FAMOTIDINE 20 MG TAB FEEDTUBE SCH ×2 (09:23→22:13)
[2021-05-14] MEDS: HYDROCORTISONE SOD SUCC 100 MG/2 ML VIAL IV SCH ×2 (11:53→22:13)
--- NOTE | 2021-05-14 12:17 | Progress Note ---
Assessment and Plan 66 y/o male with altered mental status found to be COVID positive, now with worsening respiratory failure. 05/14/21: Will start stress dose steroids to see if this helps with vasopressor requirement. Software Asset Management Analyst to approve procedure today, CM to follow up. No sedation, monitor fever curve. Guarded to poor prognosis. Placement once trached. 05/13/21: Appreciate Surgery Help. Trach scheduled for Tuesday. Filled out paperwork for guardian to approve trach. Daily PSV trials as tolerated. 05/12/21: Placed consult to surgery for trach and peg as patient's mental state will not allow successful weaning without a secure airway. Continue CPT therapy. CM to reach out to guardian to start working on placement. 05/10/21: Contniue CPT. Called by RT yesterday for changes in breathing pattern but still with good sats. Patient is not a candidate for bipap so next step would be intubation. Asked RT to pass this on to night time staff. Still awaiting to hear from guardianship about hospice as all of their patient's are full code and they will likely not change his code status. Poor prognosis. 05/09/21: Given current clinical state, no improvement in pulmonary status, increased weakness with continued risk for aspiration in the face of COVID 19 pneumonia, I agree that hospice would be a reasonable option for this patient. Not sure what company could take current oxygen demand so if this is pursued it would likely need to be inpatient with plans of comfort and deescalation. Continue CPT and mucomyst nebs. Guarded to poor prognosis. 05/08/21: Continue CPT. Will try mucomyst nebs to see if this helps with sputum expectoration given weak cough. Guarded prognosis. Prone if able. 05/07/21: Continue CPT. Will speak with pharmacy but may need hypertonic saline neb to help induce cough to help expectorate mucous. Ideally should be bronched, but would need to either be intubated or have LMA and doubt GI will allow given COVID positive state. Guarded to poor prognosis. 05/06/21: Please continue CPT multiple times daily. Please document this. Suggest proning patient to help with oxygenation if possible. Guarded prognosis. 05/05/21: Increased CPT to 3-6x daily. Should be done with scheduled albuterol therapy. Please wake patient up for scheduled meds as we are trying to remove mucous and improve oxygenation. Will discuss with RT to pass on to night shit. Prone as much as possible. Daily net negative fluid balance 1. Mucous plug on CTA. Needs CPT but more than daily. Please increase to at least TID 2. Prone as much as possible and sleep prone at night 3. Has already finished steroids 4. Guarded prognosis. CCT 31 minutes. Subjective Date of service: 05/14/21 Principal diagnosis: Encephalopathy,COVID-19 Interval history: Scheduled for trach and peg tomorrow. Had low grade temp last night of 100.3. Still on levophed but responded to bolus. Objective Vital Signs - 12hr 05/14/21 05/14/21 05/14/21 00:15 00:22 00:30 Temperature Pulse Rate 117 H 110 H 114 H Pulse Rate [ Dorsalis Pedis] Pulse Rate [ From Monitor] Pulse Rate [ Radial] Respiratory 31 H 30 H Rate Blood Pressure 89/59 80/59 91/58 O2 Sat by Pulse 98 98 99 Oximetry 05/14/21 05/14/21 05/14/21 00:45 01:00 01:15 Temperature Pulse Rate 118 H 116 H 118 H Pulse Rate [ Dorsalis Pedis] Pulse Rate [ From Monitor] Pulse Rate [ Radial] Respiratory 32 H 33 H 33 H Rate Blood Pressure 91/58 92/60 88/58 O2 Sat by Pulse 99 99 99 Oximetry 05/14/21 05/14/21 05/14/21 01:30 01:45 02:00 Temperature Pulse Rate 118 H 117 H 117 H Pulse Rate [ Dorsalis Pedis] Pulse Rate [ From Monitor] Pulse Rate [ Radial] Respiratory 30 H 32 H 32 H Rate Blood Pressure 95/59 87/55 O2 Sat by Pulse 98 98 98 Oximetry 05/14/21 05/14/21 05/14/21 02:15 02:30 02:45 Temperature Pulse Rate 118 H 119 H 121 H Pulse Rate [ Dorsalis Pedis] Pulse Rate [ From Monitor] Pulse Rate [ Radial] Respiratory 30 H 31 H 32 H Rate Blood Pressure 87/54 93/59 78/57 O2 Sat by Pulse 98 98 98 Oximetry 05/14/21 05/14/21 05/14/21 03:00 03:15 03:30 Temperature Pulse Rate 119 H 122 H 123 H Pulse Rate [ Dorsalis Pedis] Pulse Rate [ From Monitor] Pulse Rate [ Radial] Respiratory 32 H 31 H 33 H Rate Blood Pressure 79/58 88/58 82/60 O2 Sat by Pulse 99 98 98 Oximetry 05/14/21 05/14/21 05/14/21 03:33 03:45 04:00 Temperature 99.3 F Pulse Rate 129 H 126 H Pulse Rate [ Dorsalis Pedis] Pulse Rate [ From Monitor] Pulse Rate [ Radial] Respiratory 34 H Rate Blood Pressure 94/64 96/53 O2 Sat by Pulse 98 99 Oximetry 05/14/21 05/14/21 05/14/21 04:01 04:15 04:31 Temperature Pulse Rate 123 H 125 H 126 H Pulse Rate [ Dorsalis Pedis] Pulse Rate [ From Monitor] Pulse Rate [ Radial] Respiratory 33 H 31 H 31 H Rate Blood Pressure 109/44 109/44 87/55 O2 Sat by Pulse 98 99 98 Oximetry 05/14/21 05/14/21 05/14/21 04:45 05:00 05:15 Temperature Pulse Rate 124 H 122 H 125 H Pulse Rate [ Dorsalis Pedis] Pulse Rate [ From Monitor] Pulse Rate [ Radial] Respiratory 27 H 37 H 31 H Rate Blood Pressure 87/55 87/55 90/53 O2 Sat by Pulse 98 97 99 Oximetry 05/14/21 05/14/21 05/14/21 05:30 05:45 06:00 Temperature Pulse Rate 126 H 129 H 131 H Pulse Rate [ Dorsalis Pedis] Pulse Rate [ From Monitor] Pulse Rate [ Radial] Respiratory 32 H 34 H 31 H Rate Blood Pressure 93/54 88/58 92/57 O2 Sat by Pulse 99 98 98 Oximetry 05/14/21 05/14/21 05/14/21 06:15 06:30 06:45 Temperature Pulse Rate 131 H 134 H 135 H Pulse Rate [ Dorsalis Pedis] Pulse Rate [ From Monitor] Pulse Rate [ Radial] Respiratory 37 H 32 H 36 H Rate Blood Pressure 79/55 91/52 97/58 O2 Sat by Pulse 97 98 98 Oximetry 05/14/21 05/14/21 05/14/21 07:01 07:15 07:31 Temperature Pulse Rate 134 H 133 H 135 H Pulse Rate [ Dorsalis Pedis] Pulse Rate [ From Monitor] Pulse Rate [ Radial] Respiratory 42 H 33 H 31 H Rate Blood Pressure 83/58 115/47 88/51 O2 Sat by Pulse 97 97 98 Oximetry 05/14/21 05/14/21 05/14/21 07:39 07:42 07:45 Temperature Pulse Rate 136 H 117 H 118 H Pulse Rate [ Dorsalis Pedis] Pulse Rate [ From Monitor] Pulse Rate [ Radial] Respiratory 36 H Rate Blood Pressure 88/60 88/51 85/60 O2 Sat by Pulse 99 100 Oximetry 05/14/21 05/14/21 05/14/21 08:00 08:15 08:31 Temperature 100.9 F H Pulse Rate 119 H 120 H 123 H Pulse Rate [ 118 H Dorsalis Pedis] Pulse Rate [ 119 H From Monitor] Pulse Rate [ 118 H Radial] Respiratory 37 H 34 H 36 H Rate Blood Pressure 71/48 71/48 83/55 O2 Sat by Pulse 96 97 96 Oximetry 05/14/21 05/14/21 05/14/21 08:45 09:00 09:15 Temperature Pulse Rate 123 H 122 H 122 H Pulse Rate [ Dorsalis Pedis] Pulse Rate [ From Monitor] Pulse Rate [ Radial] Respiratory 34 H 33 H 28 H Rate Blood Pressure 85/56 90/59 92/62 O2 Sat by Pulse 96 98 99 Oximetry 05/14/21 05/14/21 05/14/21 09:30 09:45 10:00 Temperature Pulse Rate 121 H 116 H 115 H Pulse Rate [ Dorsalis Pedis] Pulse Rate [ From Monitor] Pulse Rate [ Radial] Respiratory 34 H 34 H 34 H Rate Blood Pressure 94/61 98/62 100/64 O2 Sat by Pulse 97 98 99 Oximetry 05/14/21 05/14/21 05/14/21 10:15 10:30 11:10 Temperature Pulse Rate 115 H 116 H 120 H Pulse Rate [ Dorsalis Pedis] Pulse Rate [ From Monitor] Pulse Rate [ Radial] Respiratory 32 H 32 H Rate Blood Pressure 100/66 96/62 108/67 O2 Sat by Pulse 100 100 100 Oximetry 05/14/21 12:00 Temperature 99.4 F Pulse Rate Pulse Rate [ Dorsalis Pedis] Pulse Rate [ From Monitor] Pulse Rate [ Radial] Respiratory Rate Blood Pressure O2 Sat by Pulse Oximetry Constitutional: other (on nrb mask sat 100%, opens eyes to tactile stimuli, doesnt follow command ) ENT: oropharynx moist, oropharynx dry Ascultation: Bilateral: rhonchi (sl better) Cardiovascular: regular rate and rhythm, PVC's noted Gastrointestinal: normoactive bowel sounds Integumentary: normal CBC and BMP: 05/14/21 04:02 05/14/21 04:02 ABG, PT/INR, D-dimer: ABG ABG pH 7.490 pH Units (7.350-7.450) H 05/13/21 04:37 POC ABG pCO2 129.5 mmHg (32.0-48.0) H 05/11/21 03:20 ABG pCO2 49.3 mm Hg 05/13/21 04:37 POC ABG pO2 139.1 mmHg (83-108) H 05/11/21 03:20 ABG pO2 70.2 mm Hg (80.0-90.0) L 05/13/21 04:37 POC ABG HCO3 37.8 05/11/21 03:20 ABG O2 Saturation 96.6 % (95.0-99.0) 05/13/21 04:37 PT/INR, D-dimer PT 16.0 Sec. (12.2-14.9) H 05/07/21 07:28 INR 1.16 (0.87-1.13) H 05/07/21 07:28 D-Dimer 690.97 ng/mlDDU (0-234) H 04/30/21 06:20 Abnormal lab findings: Abnormal Labs 04/21/21 04/21/21 04/22/21 16:08 16:08 00:20 WBC RBC Hgb Hct MCV 96 H MCH MCHC RDW Plt Count Lymph % (Auto) 8.5 L [place] % (Auto) 15.8 H Lymph # (Auto) 0.9 L [place] # (Auto) 1.7 H Seg Neutrophils % 75.6 H Seg Neuts % (Manual) Lymphocytes % (Manual) Monocytes % (Manual) Seg Neutrophils # 8.0 H Seg Neutrophils # Man Lymphocytes # (Manual) Monocytes # (Manual) PT INR APTT D-Dimer 621.94 H ABG pH POC ABG pCO2 POC ABG pO2 ABG pO2 ABG HCO3 ABG Base Excess ABG Hemoglobin ABG Oxyhemoglobin ABG Sodium ABG Potassium ABG Chloride ABG Glucose Oxyhemoglobin Carboxyhemoglobin Sodium Potassium Chloride Carbon Dioxide BUN Creatinine 0.6 L Glucose 107 H POC Glucose Calcium 8.3 L Phosphorus Ferritin AST 136 H Lactate Dehydrogenase C-Reactive Protein Total Protein 6.2 L Albumin 3.0 L Lipase 7 L Vitamin B12 Arterial Blood Glucose Valproic Acid Coronavirus (PCR) 04/22/21 04/22/21 04/22/21 00:20 00:20 06:51 WBC RBC Hgb Hct MCV 95 H MCH MCHC RDW Plt Count Lymph % (Auto) [place] % (Auto) Lymph # (Auto) [place] # (Auto) Seg Neutrophils % Seg Neuts % (Manual) 91.0 H Lymphocytes % (Manual) 1.0 L Monocytes % (Manual) Seg Neutrophils # Seg Neutrophils # Man Lymphocytes # (Manual) 0.1 L Monocytes # (Manual) PT INR APTT D-Dimer ABG pH POC ABG pCO2 POC ABG pO2 ABG pO2 ABG HCO3 ABG Base Excess ABG Hemoglobin ABG Oxyhemoglobin ABG Sodium ABG Potassium ABG Chloride ABG Glucose Oxyhemoglobin Carboxyhemoglobin Sodium Potassium Chloride Carbon Dioxide BUN Creatinine Glucose POC Glucose Calcium Phosphorus Ferritin 427.3 H AST Lactate Dehydrogenase 379 H C-Reactive Protein 9.20 H Total Protein Albumin Lipase Vitamin B12 Arterial Blood Glucose Valproic Acid Coronavirus (PCR) 04/22/21 04/22/21 04/23/21 06:51 Unknown 09:24 WBC RBC Hgb Hct MCV 96 H MCH MCHC RDW Plt Count Lymph % (Auto) 5.9 L [place] % (Auto) 9.3 H Lymph # (Auto) 0.5 L [place] # (Auto) Seg Neutrophils % 84.8 H Seg Neuts % (Manual) Lymphocytes % (Manual) Monocytes % (Manual) Seg Neutrophils # Seg Neutrophils # Man Lymphocytes # (Manual) Monocytes # (Manual) PT INR APTT D-Dimer ABG pH POC ABG pCO2 POC ABG pO2 ABG pO2 ABG HCO3 ABG Base Excess ABG Hemoglobin ABG Oxyhemoglobin ABG Sodium ABG Potassium ABG Chloride ABG Glucose Oxyhemoglobin Carboxyhemoglobin Sodium Potassium Chloride Carbon Dioxide BUN Creatinine 0.4 L Glucose 114 H POC Glucose Calcium 8.0 L Phosphorus Ferritin AST 116 H Lactate Dehydrogenase C-Reactive Protein Total Protein 5.9 L Albumin 3.0 L Lipase Vitamin B12 Arterial Blood Glucose Valproic Acid Coronavirus (PCR) Positive A 04/23/21 04/23/21 04/24/21 09:24 22:38 07:56 WBC RBC Hgb Hct MCV MCH MCHC RDW Plt Count Lymph % (Auto) [place] % (Auto) Lymph # (Auto) [place] # (Auto) Seg Neutrophils % Seg Neuts % (Manual) Lymphocytes % (Manual) Monocytes % (Manual) Seg Neutrophils # Seg Neutrophils # Man Lymphocytes # (Manual) Monocytes # (Manual) PT INR APTT D-Dimer ABG pH POC ABG pCO2 POC ABG pO2 ABG pO2 ABG HCO3 ABG Base Excess ABG Hemoglobin ABG Oxyhemoglobin ABG Sodium ABG Potassium ABG Chloride ABG Glucose Oxyhemoglobin Carboxyhemoglobin Sodium Potassium 3.5 L Chloride Carbon Dioxide BUN Creatinine 0.5 L Glucose 102 H POC Glucose 111 H Calcium 8.3 L Phosphorus 2.30 L Ferritin AST Lactate Dehydrogenase C-Reactive Protein Total Protein Albumin Lipase Vitamin B12 1039 H Arterial Blood Glucose Valproic Acid Coronavirus (PCR) 04/24/21 04/24/21 04/24/21 07:56 07:56 21:37 WBC RBC Hgb Hct MCV 95 H MCH MCHC RDW Plt Count Lymph % (Auto) [place] % (Auto) Lymph # (Auto) [place] # (Auto) Seg Neutrophils % Seg Neuts % (Manual) 80.0 H Lymphocytes % (Manual) 10.0 L Monocytes % (Manual) 10.0 H Seg Neutrophils # Seg Neutrophils # Man Lymphocytes # (Manual) 0.7 L Monocytes # (Manual) PT INR APTT D-Dimer ABG pH POC ABG pCO2 POC ABG pO2 ABG pO2 ABG HCO3 ABG Base Excess ABG Hemoglobin ABG Oxyhemoglobin ABG Sodium ABG Potassium ABG Chloride ABG Glucose Oxyhemoglobin Carboxyhemoglobin Sodium Potassium Chloride Carbon Dioxide BUN Creatinine 0.4 L Glucose POC Glucose 111 H Calcium Phosphorus Ferritin AST Lactate Dehydrogenase C-Reactive Protein Total Protein Albumin Lipase Vitamin B12 Arterial Blood Glucose Valproic Acid Coronavirus (PCR) 04/25/21 04/25/21 04/25/21 06:24 06:24 23:13 WBC RBC Hgb Hct 46.6 H MCV MCH MCHC RDW Plt Count Lymph % (Auto) [place] % (Auto) Lymph # (Auto) [place] # (Auto) Seg Neutrophils % Seg Neuts % (Manual) 83.0 H Lymphocytes % (Manual) 1.0 L Monocytes % (Manual) 9.0 H Seg Neutrophils # Seg Neutrophils # Man Lymphocytes # (Manual) 0.1 L Monocytes # (Manual) PT INR APTT D-Dimer ABG pH POC ABG pCO2 POC ABG pO2 ABG pO2 ABG HCO3 ABG Base Excess ABG Hemoglobin ABG Oxyhemoglobin ABG Sodium ABG Potassium ABG Chloride ABG Glucose Oxyhemoglobin Carboxyhemoglobin Sodium 136 L 134 L Potassium 3.3 L Chloride Carbon Dioxide 21 L BUN Creatinine 0.3 L 0.4 L Glucose 115 H POC Glucose Calcium 7.7 L Phosphorus Ferritin AST 104 H Lactate Dehydrogenase C-Reactive Protein Total Protein 6.1 L Albumin 2.6 L Lipase Vitamin B12 Arterial Blood Glucose Valproic Acid Coronavirus (PCR) 04/26/21 04/27/21 04/27/21 06:29 06:31 06:31 WBC 17.6 H RBC Hgb Hct MCV MCH MCHC RDW Plt Count Lymph % (Auto) [place] % (Auto) Lymph # (Auto) [place] # (Auto) Seg Neutrophils % Seg Neuts % (Manual) 87.0 H Lymphocytes % (Manual) 5.0 L Monocytes % (Manual) Seg Neutrophils # Seg Neutrophils # Man 15.3 H Lymphocytes # (Manual) 0.9 L Monocytes # (Manual) 0.9 H PT INR APTT D-Dimer ABG pH POC ABG pCO2 POC ABG pO2 ABG pO2 ABG HCO3 ABG Base Excess ABG Hemoglobin ABG Oxyhemoglobin ABG Sodium ABG Potassium ABG Chloride ABG Glucose Oxyhemoglobin Carboxyhemoglobin Sodium Potassium 3.4 L Chloride Carbon Dioxide BUN Creatinine 0.5 L 0.4 L Glucose 112 H 106 H POC Glucose Calcium 8.0 L Phosphorus Ferritin AST 114 H 110 H Lactate Dehydrogenase C-Reactive Protein Total Protein 6.2 L Albumin 2.9 L 2.6 L Lipase Vitamin B12 Arterial Blood Glucose Valproic Acid Coronavirus (PCR) 04/28/21 04/28/21 04/29/21 08:03 08:03 04:00 WBC 19.8 H 14.0 H RBC Hgb Hct MCV 95 H MCH MCHC RDW Plt Count Lymph % (Auto) [place] % (Auto) Lymph # (Auto) [place] # (Auto) Seg Neutrophils % Seg Neuts % (Manual) 94.0 H Lymphocytes % (Manual) 1.0 L Monocytes % (Manual) Seg Neutrophils # Seg Neutrophils # Man 18.6 H Lymphocytes # (Manual) 0.2 L Monocytes # (Manual) PT INR APTT D-Dimer ABG pH POC ABG pCO2 POC ABG pO2 ABG pO2 ABG HCO3 ABG Base Excess ABG Hemoglobin ABG Oxyhemoglobin ABG Sodium ABG Potassium ABG Chloride ABG Glucose Oxyhemoglobin Carboxyhemoglobin Sodium Potassium Chloride Carbon Dioxide BUN Creatinine 0.2 L Glucose 107 H POC Glucose Calcium 8.1 L Phosphorus Ferritin AST 87 H Lactate Dehydrogenase C-Reactive Protein Total Protein 5.1 L Albumin 2.4 L Lipase Vitamin B12 Arterial Blood Glucose Valproic Acid Coronavirus (PCR) 04/29/21 04/30/21 04/30/21 04:00 06:20 06:20 WBC RBC Hgb Hct MCV MCH MCHC RDW Plt Count Lymph % (Auto) [place] % (Auto) Lymph # (Auto) [place] # (Auto) Seg Neutrophils % Seg Neuts % (Manual) Lymphocytes % (Manual) Monocytes % (Manual) Seg Neutrophils # Seg Neutrophils # Man Lymphocytes # (Manual) Monocytes # (Manual) PT INR APTT D-Dimer 690.97 H ABG pH POC ABG pCO2 POC ABG pO2 ABG pO2 ABG HCO3 ABG Base Excess ABG Hemoglobin ABG Oxyhemoglobin ABG Sodium ABG Potassium ABG Chloride ABG Glucose Oxyhemoglobin Carboxyhemoglobin Sodium 148 H Potassium 3.0 L Chloride 110.2 H Carbon Dioxide BUN Creatinine 0.2 L Glucose 130 H POC Glucose Calcium Phosphorus Ferritin 930.1 H AST 63 H Lactate Dehydrogenase C-Reactive Protein Total Protein 5.6 L Albumin 2.4 L Lipase Vitamin B12 Arterial Blood Glucose Valproic Acid Coronavirus (PCR) 04/30/21 04/30/21 04/30/21 06:20 08:01 08:41 WBC RBC Hgb Hct MCV MCH MCHC RDW Plt Count Lymph % (Auto) [place] % (Auto) Lymph # (Auto) [place] # (Auto) Seg Neutrophils % Seg Neuts % (Manual) Lymphocytes % (Manual) Monocytes % (Manual) Seg Neutrophils # Seg Neutrophils # Man Lymphocytes # (Manual) Monocytes # (Manual) PT INR APTT D-Dimer ABG pH POC ABG pCO2 POC ABG pO2 ABG pO2 ABG HCO3 ABG Base Excess ABG Hemoglobin ABG Oxyhemoglobin ABG Sodium ABG Potassium ABG Chloride ABG Glucose Oxyhemoglobin Carboxyhemoglobin Sodium 151 H Potassium 3.3 L Chloride 110.3 H Carbon Dioxide BUN Creatinine 0.3 L Glucose 119 H POC Glucose 119 H Calcium Phosphorus Ferritin AST Lactate Dehydrogenase 423 H C-Reactive Protein 8.90 H Total Protein Albumin Lipase Vitamin B12 Arterial Blood Glucose Valproic Acid Coronavirus (PCR) 04/30/21 05/01/21 05/01/21 11:14 07:29 07:29 WBC 21.4 H RBC Hgb Hct MCV MCH MCHC RDW Plt Count Lymph % (Auto) [place] % (Auto) Lymph # (Auto) [place] # (Auto) Seg Neutrophils % Seg Neuts % (Manual) Lymphocytes % (Manual) Monocytes % (Manual) Seg Neutrophils # Seg Neutrophils # Man Lymphocytes # (Manual) Monocytes # (Manual) PT INR APTT D-Dimer ABG pH POC ABG pCO2 POC ABG pO2 ABG pO2 ABG HCO3 ABG Base Excess ABG Hemoglobin ABG Oxyhemoglobin ABG Sodium ABG Potassium ABG Chloride ABG Glucose Oxyhemoglobin Carboxyhemoglobin Sodium 150 H Potassium 2.7 L* Chloride 111.2 H Carbon Dioxide BUN Creatinine 0.3 L Glucose 162 H POC Glucose 113 H Calcium Phosphorus Ferritin AST Lactate Dehydrogenase C-Reactive Protein Total Protein Albumin Lipase Vitamin B12 Arterial Blood Glucose Valproic Acid Coronavirus (PCR) 05/01/21 05/01/21 05/01/21 07:33 11:28 17:54 WBC RBC Hgb Hct MCV MCH MCHC RDW Plt Count Lymph % (Auto) [place] % (Auto) Lymph # (Auto) [place] # (Auto) Seg Neutrophils % Seg Neuts % (Manual) Lymphocytes % (Manual) Monocytes % (Manual) Seg Neutrophils # Seg Neutrophils # Man Lymphocytes # (Manual) Monocytes # (Manual) PT INR APTT D-Dimer ABG pH POC ABG pCO2 POC ABG pO2 ABG pO2 ABG HCO3 ABG Base Excess ABG Hemoglobin ABG Oxyhemoglobin ABG Sodium ABG Potassium ABG Chloride ABG Glucose Oxyhemoglobin Carboxyhemoglobin Sodium Potassium Chloride Carbon Dioxide BUN Creatinine Glucose POC Glucose 147 H 152 H 165 H Calcium Phosphorus Ferritin AST Lactate Dehydrogenase C-Reactive Protein Total Protein Albumin Lipase Vitamin B12 Arterial Blood Glucose Valproic Acid Coronavirus (PCR) 05/02/21 05/02/21 05/02/21 00:23 05:28 05:28 WBC 18.9 H RBC Hgb Hct MCV 95 H MCH MCHC 31 L RDW Plt Count Lymph % (Auto) [place] % (Auto) Lymph # (Auto) [place] # (Auto) Seg Neutrophils % Seg Neuts % (Manual) Lymphocytes % (Manual) Monocytes % (Manual) Seg Neutrophils # Seg Neutrophils # Man Lymphocytes # (Manual) Monocytes # (Manual) PT INR APTT D-Dimer ABG pH POC ABG pCO2 POC ABG pO2 ABG pO2 ABG HCO3 ABG Base Excess ABG Hemoglobin ABG Oxyhemoglobin ABG Sodium ABG Potassium ABG Chloride ABG Glucose Oxyhemoglobin Carboxyhemoglobin Sodium 151 H Potassium Chloride 111.4 H Carbon Dioxide BUN Creatinine 0.3 L Glucose 132 H POC Glucose 160 H Calcium 8.3 L Phosphorus Ferritin AST Lactate Dehydrogenase C-Reactive Protein Total Protein Albumin Lipase Vitamin B12 Arterial Blood Glucose Valproic Acid Coronavirus (PCR) 05/02/21 05/02/21 05/02/21 07:42 11:31 16:39 WBC RBC Hgb Hct MCV MCH MCHC RDW Plt Count Lymph % (Auto) [place] % (Auto) Lymph # (Auto) [place] # (Auto) Seg Neutrophils % Seg Neuts % (Manual) Lymphocytes % (Manual) Monocytes % (Manual) Seg Neutrophils # Seg Neutrophils # Man Lymphocytes # (Manual) Monocytes # (Manual) PT INR APTT D-Dimer ABG pH POC ABG pCO2 POC ABG pO2 ABG pO2 ABG HCO3 ABG Base Excess ABG Hemoglobin ABG Oxyhemoglobin ABG Sodium ABG Potassium ABG Chloride ABG Glucose Oxyhemoglobin Carboxyhemoglobin Sodium Potassium Chloride Carbon Dioxide BUN Creatinine Glucose POC Glucose 170 H 131 H 140 H Calcium Phosphorus Ferritin AST Lactate Dehydrogenase C-Reactive Protein Total Protein Albumin Lipase Vitamin B12 Arterial Blood Glucose Valproic Acid Coronavirus (PCR) 05/02/21 05/03/21 05/03/21 22:42 06:11 09:20 WBC 16.2 H RBC 3.51 L Hgb 10.5 L Hct 33.1 L MCV MCH MCHC RDW 15.4 H Plt Count Lymph % (Auto) [place] % (Auto) Lymph # (Auto) [place] # (Auto) Seg Neutrophils % Seg Neuts % (Manual) Lymphocytes % (Manual) Monocytes % (Manual) Seg Neutrophils # Seg Neutrophils # Man Lymphocytes # (Manual) Monocytes # (Manual) PT INR APTT D-Dimer ABG pH POC ABG pCO2 POC ABG pO2 ABG pO2 ABG HCO3 ABG Base Excess ABG Hemoglobin ABG Oxyhemoglobin ABG Sodium ABG Potassium ABG Chloride ABG Glucose Oxyhemoglobin Carboxyhemoglobin Sodium Potassium Chloride Carbon Dioxide BUN Creatinine Glucose POC Glucose 107 H 108 H Calcium Phosphorus Ferritin AST Lactate Dehydrogenase C-Reactive Protein Total Protein Albumin Lipase Vitamin B12 Arterial Blood Glucose Valproic Acid Coronavirus (PCR) 05/03/21 05/03/21 05/03/21 09:20 11:01 17:33 WBC RBC Hgb Hct MCV MCH MCHC RDW Plt Count Lymph % (Auto) [place] % (Auto) Lymph # (Auto) [place] # (Auto) Seg Neutrophils % Seg Neuts % (Manual) Lymphocytes % (Manual) Monocytes % (Manual) Seg Neutrophils # Seg Neutrophils # Man Lymphocytes # (Manual) Monocytes # (Manual) PT INR APTT D-Dimer ABG pH POC ABG pCO2 POC ABG pO2 ABG pO2 ABG HCO3 ABG Base Excess ABG Hemoglobin ABG Oxyhemoglobin ABG Sodium ABG Potassium ABG Chloride ABG Glucose Oxyhemoglobin Carboxyhemoglobin Sodium 149 H Potassium 3.5 L Chloride 110.0 H Carbon Dioxide BUN Creatinine 0.3 L Glucose 113 H POC Glucose 146 H 118 H Calcium 8.0 L Phosphorus Ferritin AST Lactate Dehydrogenase C-Reactive Protein Total Protein Albumin Lipase Vitamin B12 Arterial Blood Glucose Valproic Acid Coronavirus (PCR) 05/04/21 05/04/21 05/04/21 05:51 13:28 13:28 WBC RBC Hgb Hct MCV MCH MCHC RDW Plt Count Lymph % (Auto) [place] % (Auto) Lymph # (Auto) [place] # (Auto) Seg Neutrophils % Seg Neuts % (Manual) Lymphocytes % (Manual) Monocytes % (Manual) Seg Neutrophils # Seg Neutrophils # Man Lymphocytes # (Manual) Monocytes # (Manual) PT INR APTT D-Dimer ABG pH POC ABG pCO2 POC ABG pO2 ABG pO2 ABG HCO3 ABG Base Excess ABG Hemoglobin ABG Oxyhemoglobin ABG Sodium ABG Potassium ABG Chloride ABG Glucose Oxyhemoglobin Carboxyhemoglobin Sodium Potassium Chloride Carbon Dioxide BUN Creatinine Glucose POC Glucose 143 H Calcium Phosphorus Ferritin AST Lactate Dehydrogenase C-Reactive Protein 15.40 H Total Protein Albumin Lipase Vitamin B12 Arterial Blood Glucose Valproic Acid 10.9 L Coronavirus (PCR) 05/04/21 05/04/21 05/05/21 17:30 23:53 11:23 WBC RBC Hgb Hct MCV MCH MCHC RDW Plt Count Lymph % (Auto) [place] % (Auto) Lymph # (Auto) [place] # (Auto) Seg Neutrophils % Seg Neuts % (Manual) Lymphocytes % (Manual) Monocytes % (Manual) Seg Neutrophils # Seg Neutrophils # Man Lymphocytes # (Manual) Monocytes # (Manual) PT INR APTT D-Dimer ABG pH POC ABG pCO2 POC ABG pO2 ABG pO2 ABG HCO3 ABG Base Excess ABG Hemoglobin ABG Oxyhemoglobin ABG Sodium ABG Potassium ABG Chloride ABG Glucose Oxyhemoglobin Carboxyhemoglobin Sodium Potassium Chloride Carbon Dioxide BUN Creatinine Glucose POC Glucose 110 H 128 H 121 H Calcium Phosphorus Ferritin AST Lactate Dehydrogenase C-Reactive Protein Total Protein Albumin Lipase Vitamin B12 Arterial Blood Glucose Valproic Acid Coronavirus (PCR) 05/05/21 05/05/21 05/06/21 16:26 21:24 07:02 WBC 11.7 H RBC Hgb Hct MCV 99 H MCH 33 H MCHC RDW 15.5 H Plt Count Lymph % (Auto) [place] % (Auto) Lymph # (Auto) [place] # (Auto) Seg Neutrophils % Seg Neuts % (Manual) 82.0 H Lymphocytes % (Manual) 4.0 L Monocytes % (Manual) Seg Neutrophils # Seg Neutrophils # Man 9.6 H Lymphocytes # (Manual) 0.5 L Monocytes # (Manual) PT INR APTT D-Dimer ABG pH POC ABG pCO2 POC ABG pO2 ABG pO2 ABG HCO3 ABG Base Excess ABG Hemoglobin ABG Oxyhemoglobin ABG Sodium ABG Potassium ABG Chloride ABG Glucose Oxyhemoglobin Carboxyhemoglobin Sodium Potassium Chloride Carbon Dioxide BUN Creatinine Glucose POC Glucose 113 H 130 H Calcium Phosphorus Ferritin AST Lactate Dehydrogenase C-Reactive Protein Total Protein Albumin Lipase Vitamin B12 Arterial Blood Glucose Valproic Acid Coronavirus (PCR) 05/07/21 05/07/21 05/07/21 05:00 07:28 21:34 WBC RBC Hgb Hct MCV MCH MCHC RDW Plt Count Lymph % (Auto) [place] % (Auto) Lymph # (Auto) [place] # (Auto) Seg Neutrophils % Seg Neuts % (Manual) Lymphocytes % (Manual) Monocytes % (Manual) Seg Neutrophils # Seg Neutrophils # Man Lymphocytes # (Manual) Monocytes # (Manual) PT 16.0 H INR 1.16 H APTT 43.8 H D-Dimer ABG pH POC ABG pCO2 POC ABG pO2 ABG pO2 ABG HCO3 ABG Base Excess ABG Hemoglobin ABG Oxyhemoglobin ABG Sodium ABG Potassium ABG Chloride ABG Glucose Oxyhemoglobin Carboxyhemoglobin Sodium Potassium Chloride Carbon Dioxide BUN Creatinine Glucose POC Glucose 112 H 123 H Calcium Phosphorus Ferritin AST Lactate Dehydrogenase C-Reactive Protein Total Protein Albumin Lipase Vitamin B12 Arterial Blood Glucose Valproic Acid Coronavirus (PCR) 05/08/21 05/08/21 05/08/21 08:11 12:04 16:37 WBC RBC Hgb Hct MCV MCH MCHC RDW Plt Count Lymph % (Auto) [place] % (Auto) Lymph # (Auto) [place] # (Auto) Seg Neutrophils % Seg Neuts % (Manual) Lymphocytes % (Manual) Monocytes % (Manual) Seg Neutrophils # Seg Neutrophils # Man Lymphocytes # (Manual) Monocytes # (Manual) PT INR APTT D-Dimer ABG pH POC ABG pCO2 POC ABG pO2 ABG pO2 ABG HCO3 ABG Base Excess ABG Hemoglobin ABG Oxyhemoglobin ABG Sodium ABG Potassium ABG Chloride ABG Glucose Oxyhemoglobin Carboxyhemoglobin Sodium Potassium Chloride Carbon Dioxide BUN Creatinine Glucose POC Glucose 158 H 117 H 118 H Calcium Phosphorus Ferritin AST Lactate Dehydrogenase C-Reactive Protein Total Protein Albumin Lipase Vitamin B12 Arterial Blood Glucose Valproic Acid Coronavirus (PCR) 05/09/21 05/09/21 05/09/21 04:56 12:04 17:14 WBC RBC Hgb Hct MCV MCH MCHC RDW Plt Count Lymph % (Auto) [place] % (Auto) Lymph # (Auto) [place] # (Auto) Seg Neutrophils % Seg Neuts % (Manual) Lymphocytes % (Manual) Monocytes % (Manual) Seg Neutrophils # Seg Neutrophils # Man Lymphocytes # (Manual) Monocytes # (Manual) PT INR APTT D-Dimer ABG pH POC ABG pCO2 POC ABG pO2 ABG pO2 ABG HCO3 ABG Base Excess ABG Hemoglobin ABG Oxyhemoglobin ABG Sodium ABG Potassium ABG Chloride ABG Glucose Oxyhemoglobin Carboxyhemoglobin Sodium Potassium Chloride Carbon Dioxide BUN Creatinine Glucose POC Glucose 113 H 107 H 163 H Calcium Phosphorus Ferritin AST Lactate Dehydrogenase C-Reactive Protein Total Protein Albumin Lipase Vitamin B12 Arterial Blood Glucose Valproic Acid Coronavirus (PCR) 05/09/21 05/09/21 05/10/21 21:02 Unknown 12:00 WBC RBC Hgb Hct MCV MCH MCHC RDW Plt Count Lymph % (Auto) [place] % (Auto) Lymph # (Auto) [place] # (Auto) Seg Neutrophils % Seg Neuts % (Manual) Lymphocytes % (Manual) Monocytes % (Manual) Seg Neutrophils # Seg Neutrophils # Man Lymphocytes # (Manual) Monocytes # (Manual) PT INR APTT D-Dimer ABG pH POC ABG pCO2 POC ABG pO2 ABG pO2 ABG HCO3 ABG Base Excess ABG Hemoglobin ABG Oxyhemoglobin ABG Sodium ABG Potassium ABG Chloride ABG Glucose Oxyhemoglobin Carboxyhemoglobin Sodium Potassium Chloride Carbon Dioxide BUN Creatinine Glucose POC Glucose 139 H 132 H Calcium Phosphorus Ferritin AST Lactate Dehydrogenase C-Reactive Protein Total Protein Albumin Lipase Vitamin B12 Arterial Blood Glucose Valproic Acid Coronavirus (PCR) Positive A 05/10/21 05/10/21 05/11/21 17:36 20:37 01:46 WBC RBC Hgb Hct MCV MCH MCHC RDW Plt Count Lymph % (Auto) [place] % (Auto) Lymph # (Auto) [place] # (Auto) Seg Neutrophils % Seg Neuts % (Manual) Lymphocytes % (Manual) Monocytes % (Manual) Seg Neutrophils # Seg Neutrophils # Man Lymphocytes # (Manual) Monocytes # (Manual) PT INR APTT D-Dimer ABG pH POC ABG pCO2 POC ABG pO2 ABG pO2 ABG HCO3 ABG Base Excess ABG Hemoglobin ABG Oxyhemoglobin ABG Sodium ABG Potassium ABG Chloride ABG Glucose Oxyhemoglobin Carboxyhemoglobin Sodium Potassium Chloride Carbon Dioxide BUN Creatinine Glucose POC Glucose 120 H 125 H 118 H Calcium Phosphorus Ferritin AST Lactate Dehydrogenase C-Reactive Protein Total Protein Albumin Lipase Vitamin B12 Arterial Blood Glucose Valproic Acid Coronavirus (PCR) 05/11/21 05/11/21 05/11/21 02:30 02:30 03:20 WBC 12.3 H RBC 3.22 L Hgb 9.6 L Hct 33.3 L MCV 103 H MCH MCHC 29 L RDW 16.6 H Plt Count Lymph % (Auto) 4.9 L [place] % (Auto) 10.6 H Lymph # (Auto) 0.6 L [place] # (Auto) 1.3 H Seg Neutrophils % 84.0 H Seg Neuts % (Manual) Lymphocytes % (Manual) Monocytes % (Manual) Seg Neutrophils # 10.4 H Seg Neutrophils # Man Lymphocytes # (Manual) Monocytes # (Manual) PT INR APTT D-Dimer ABG pH 7.083 L POC ABG pCO2 129.5 H POC ABG pO2 139.1 H ABG pO2 ABG HCO3 ABG Base Excess ABG Hemoglobin 10.6 L ABG Oxyhemoglobin 98.4 H ABG Sodium 154.5 H ABG Potassium 5.4 H ABG Chloride 114.0 H ABG Glucose 128 H Oxyhemoglobin Carboxyhemoglobin 0.3 L Sodium 159 H Potassium 6.6 H* Chloride 116.6 H Carbon Dioxide 35 H BUN 41 H Creatinine Glucose 139 H POC Glucose Calcium 8.2 L Phosphorus Ferritin AST Lactate Dehydrogenase C-Reactive Protein Total Protein Albumin Lipase Vitamin B12 Arterial Blood Glucose 128 H Valproic Acid Coronavirus (PCR) 05/11/21 05/11/21 05/11/21 05:45 10:30 11:30 WBC RBC Hgb Hct MCV MCH MCHC RDW Plt Count Lymph % (Auto) [place] % (Auto) Lymph # (Auto) [place] # (Auto) Seg Neutrophils % Seg Neuts % (Manual) Lymphocytes % (Manual) Monocytes % (Manual) Seg Neutrophils # Seg Neutrophils # Man Lymphocytes # (Manual) Monocytes # (Manual) PT INR APTT D-Dimer ABG pH POC ABG pCO2 POC ABG pO2 ABG pO2 ABG HCO3 ABG Base Excess ABG Hemoglobin ABG Oxyhemoglobin ABG Sodium ABG Potassium ABG Chloride ABG Glucose Oxyhemoglobin Carboxyhemoglobin Sodium 161 H* Potassium Chloride 117.5 H Carbon Dioxide 37 H BUN 40 H Creatinine 0.7 L Glucose 155 H POC Glucose 112 H 141 H Calcium Phosphorus 2.10 L Ferritin AST Lactate Dehydrogenase C-Reactive Protein Total Protein Albumin Lipase Vitamin B12 Arterial Blood Glucose Valproic Acid Coronavirus (PCR) 05/11/21 05/11/21 05/11/21 15:59 16:40 23:21 WBC RBC Hgb Hct MCV MCH MCHC RDW Plt Count Lymph % (Auto) [place] % (Auto) Lymph # (Auto) [place] # (Auto) Seg Neutrophils % Seg Neuts % (Manual) Lymphocytes % (Manual) Monocytes % (Manual) Seg Neutrophils # Seg Neutrophils # Man Lymphocytes # (Manual) Monocytes # (Manual) PT INR APTT D-Dimer ABG pH POC ABG pCO2 POC ABG pO2 ABG pO2 ABG HCO3 ABG Base Excess ABG Hemoglobin ABG Oxyhemoglobin ABG Sodium ABG Potassium ABG Chloride ABG Glucose Oxyhemoglobin Carboxyhemoglobin Sodium 159 H Potassium Chloride 115.4 H Carbon Dioxide 35 H BUN 44 H Creatinine Glucose 177 H POC Glucose 151 H 184 H Calcium Phosphorus Ferritin AST Lactate Dehydrogenase C-Reactive Protein Total Protein Albumin Lipase Vitamin B12 Arterial Blood Glucose Valproic Acid Coronavirus (PCR) 05/12/21 05/12/21 05/12/21 05:15 05:27 05:56 WBC 11.6 H RBC 3.13 L Hgb 9.4 L Hct 30.9 L MCV 99 H MCH MCHC 30 L RDW 16.0 H Plt Count Lymph % (Auto) [place] % (Auto) Lymph # (Auto) [place] # (Auto) Seg Neutrophils % Seg Neuts % (Manual) Lymphocytes % (Manual) Monocytes % (Manual) Seg Neutrophils # Seg Neutrophils # Man Lymphocytes # (Manual) Monocytes # (Manual) PT INR APTT D-Dimer ABG pH POC ABG pCO2 POC ABG pO2 ABG pO2 107.6 H ABG HCO3 36.8 H ABG Base Excess 9.3 H ABG Hemoglobin 11.2 L ABG Oxyhemoglobin ABG Sodium ABG Potassium ABG Chloride ABG Glucose Oxyhemoglobin Carboxyhemoglobin Sodium Potassium Chloride Carbon Dioxide BUN Creatinine Glucose POC Glucose 163 H Calcium Phosphorus Ferritin AST Lactate Dehydrogenase C-Reactive Protein Total Protein Albumin Lipase Vitamin B12 Arterial Blood Glucose Valproic Acid Coronavirus (PCR) 05/12/21 05/12/21 05/12/21 05:56 11:57 18:07 WBC RBC Hgb Hct MCV MCH MCHC RDW Plt Count Lymph % (Auto) [place] % (Auto) Lymph # (Auto) [place] # (Auto) Seg Neutrophils % Seg Neuts % (Manual) Lymphocytes % (Manual) Monocytes % (Manual) Seg Neutrophils # Seg Neutrophils # Man Lymphocytes # (Manual) Monocytes # (Manual) PT INR APTT D-Dimer ABG pH POC ABG pCO2 POC ABG pO2 ABG pO2 ABG HCO3 ABG Base Excess ABG Hemoglobin ABG Oxyhemoglobin ABG Sodium ABG Potassium ABG Chloride ABG Glucose Oxyhemoglobin Carboxyhemoglobin Sodium 154 H Potassium Chloride 111.4 H Carbon Dioxide 34 H BUN 41 H Creatinine 0.5 L Glucose 185 H POC Glucose 137 H 133 H Calcium Phosphorus 2.40 L Ferritin AST Lactate Dehydrogenase C-Reactive Protein Total Protein Albumin Lipase Vitamin B12 Arterial Blood Glucose Valproic Acid Coronavirus (PCR) 05/13/21 05/13/21 05/13/21 04:37 05:53 05:53 WBC 16.4 H RBC 3.12 L Hgb 9.3 L Hct 29.5 L MCV 95 H MCH MCHC RDW Plt Count 126 L Lymph % (Auto) [place] % (Auto) Lymph # (Auto) [place] # (Auto) Seg Neutrophils % Seg Neuts % (Manual) Lymphocytes % (Manual) Monocytes % (Manual) Seg Neutrophils # Seg Neutrophils # Man Lymphocytes # (Manual) Monocytes # (Manual) PT INR APTT D-Dimer ABG pH 7.490 H POC ABG pCO2 POC ABG pO2 ABG pO2 70.2 L ABG HCO3 36.8 H ABG Base Excess 12.0 H ABG Hemoglobin 9.9 L ABG Oxyhemoglobin ABG Sodium ABG Potassium ABG Chloride ABG Glucose Oxyhemoglobin 94.7 L Carboxyhemoglobin Sodium 151 H Potassium Chloride Carbon Dioxide 33 H BUN 26 H Creatinine 0.3 L Glucose POC Glucose Calcium 8.1 L Phosphorus Ferritin AST Lactate Dehydrogenase C-Reactive Protein Total Protein Albumin Lipase Vitamin B12 Arterial Blood Glucose Valproic Acid Coronavirus (PCR) 05/13/21 05/14/21 05/14/21 17:01 00:20 04:02 WBC 13.0 H RBC 3.12 L Hgb 9.3 L Hct 29.4 L MCV MCH MCHC RDW Plt Count 130 L Lymph % (Auto) [place] % (Auto) Lymph # (Auto) [place] # (Auto) Seg Neutrophils % Seg Neuts % (Manual) Lymphocytes % (Manual) Monocytes % (Manual) Seg Neutrophils # Seg Neutrophils # Man Lymphocytes # (Manual) Monocytes # (Manual) PT INR APTT D-Dimer ABG pH POC ABG pCO2 POC ABG pO2 ABG pO2 ABG HCO3 ABG Base Excess ABG Hemoglobin ABG Oxyhemoglobin ABG Sodium ABG Potassium ABG Chloride ABG Glucose Oxyhemoglobin Carboxyhemoglobin Sodium Potassium Chloride Carbon Dioxide BUN Creatinine Glucose POC Glucose 120 H 134 H Calcium Phosphorus Ferritin AST Lactate Dehydrogenase C-Reactive Protein Total Protein Albumin Lipase Vitamin B12 Arterial Blood Glucose Valproic Acid Coronavirus (PCR) 05/14/21 05/14/21 05/14/21 04:02 05:07 11:35 WBC RBC Hgb Hct MCV MCH MCHC RDW Plt Count Lymph % (Auto) [place] % (Auto) Lymph # (Auto) [place] # (Auto) Seg Neutrophils % Seg Neuts % (Manual) Lymphocytes % (Manual) Monocytes % (Manual) Seg Neutrophils # Seg Neutrophils # Man Lymphocytes # (Manual) Monocytes # (Manual) PT INR APTT D-Dimer ABG pH POC ABG pCO2 POC ABG pO2 ABG pO2 ABG HCO3 ABG Base Excess ABG Hemoglobin ABG Oxyhemoglobin ABG Sodium ABG Potassium ABG Chloride ABG Glucose Oxyhemoglobin Carboxyhemoglobin Sodium 146 H Potassium 3.1 L D Chloride Carbon Dioxide 33 H BUN Creatinine 0.2 L Glucose 132 H POC Glucose 132 H 106 H Calcium Phosphorus 2.30 L Ferritin AST Lactate Dehydrogenase C-Reactive Protein Total Protein Albumin Lipase Vitamin B12 Arterial Blood Glucose Valproic Acid Coronavirus (PCR)
--- NOTE | 2021-05-14 13:48 | Anesthesia Consultation ---
Anesthesia Consult and Med Hx Date of service: 05/14/21 - Airway Anesthetic Teeth Evaluation: Poor ROM Head & Neck: Adequate Mental/Hyoid Distance: Adequate Intubation Access Assessment: Probably Good - Pre-Operative Health Status ASA Pre-Surgery Classification: ASA4 Proposed Anesthetic Plan: General - Pulmonary Hx Respiratory Symptoms: Yes (Acute hypoxic respiratory failure, intubated) Hx Pneumonia: Yes (COVID + [id number], + (05/09/2021)) - Central Nervous System Hx Neuromuscular Disorder: Yes (Acute metabolic encephalopathy) Hx Seizures: Yes (seizure disorder) Hx Psychiatric Problems: Yes (schizophrenia) - Other Systems Hx Obesity: No - Additional Comments Anesthesia Medical History Comments: Patient is a [facility] of [facility] [employer]. Scheduled for tracheostomy by Dr Thornton for 05/14/2021. As of 13:15 05/14/21 patient condition got worse - BP 89/54, on Levophed 12 mcg/min. Need to be assessed tommorow prior the surgery
--- NOTE | 2021-05-14 15:21 | Event Note ---
Date: 05/14/21 Patient chart reviewed. Levophed requirements up from 4 mcgs to 12 mcgs. FiO2 on vent down to 35% from 50%. Paperwork required by state guardianship completed and returned to guardian. Awaiting approval for tracheostomy. Patient is tentatively on the schedule for tomorrow 05/15/2021. Orders placed to hold tube feeds after midnight tonight
--- NOTE | 2021-05-14 16:00 | Progress Note ---
<CARMINE DE GUZMAN - Last Filed: 05/14/21 20:26> Assessment and Plan Assessment and plan: This is a 66-year old with unknown past medical history who [facility] initially admitted for acute metabolic encephalopathy and COVID pneumonia. Patient decompensated on 05/11 requiring intubation and ventilatory support. Hospital Course to Date: 05/06/2021; patient scheduled for PEG tomorrow N.p.o. status, mild to moderate risk for the procedure No medical contraindication for PEG placement. 05/07/2021; patient scheduled for PEG today Case management working on LTAC versus SNF placement 05/08/2021; status post PEG placement yesterday Start tube feeds per protocol, continuous high flow nasal cannula oxygen 40 L Unable to wean, very poor prognosis, pulmonary following, pending LTAC evaluation 05/09/2021; continue high flow nasal cannula oxygen 35 L. Wean as tolerated Case management considering hospice, discussed with herrera of the state yesterday Will follow-up with their plan 05/10/2021; mild hypotension, due to poor nutrition due to risk of aspiration nurse gives only intermittent tube feeding Resume tube feeding with aspiration precautions head end of the bed 45 degrees, reduce the flow rate to 20 to 30 mL intermittently And fluid bolus to 50 mL normal saline intermittently as needed. Patient is critically ill with poor prognosis 05/11: Intubated overnight for airway protection. S/p bronchoscopy this am due to mucus plus and complete white out of the left lung. Repeat CXR with mild improvement. D/W [facility] pending on guardian's decision on code status, patient might to be bronched again if remains a full code. Patient remains on high dose pressors, will hold TF for now, continue IVF. Continue to monitor electrolytes, repeat labs ordered 05/12: Patient aeration improved post bronch. Remains on 2 pressors, patient afebrile with no leukocytosis. Will try fluid bolus challenge in attempt to wean off pressors. D/w CCM plan for tracheotomy, surgery consulted. 05/13: Patient tolerated fluid challenge, down to only 4mcg of Levo this am, additional 1L bolus today. Plan to wean off pressors. Continue FWF for the hypernatremia. Gen surgery consulted for possible trach. 05/14: Pressor requirement increased this am, stress does steroids added and 1L IVF bolus given.Electrolytes repleted, repeat labs in the am. Possible Trach tomorrow, awaiting approval from legal guardian and the state, case management to follow up. Assessment and Plan #Acute Metabolic Encephalopathy - Patient remains unresponsive, not on any sedation - CT head with no acute abnormalities - Neurology on consulted - Avoid benzodiazepine to reduce the possibility of delirium - PRN analgesia for CPOT greater than 3 - Patient is a herrera of [facility], contact is Ms. Mattson to discuss clinical updates/consent for procedures ([phone]) #Hypotension #Tachycardia - Remains bordeline hypotensive, St on the monitor - Responded well to the IVF bolus, on low dose pressors today - Additional IVF bolus today - Stress dose steroids added - plan to wean off pressors - Maintain adequate perfusion - Continue blood pressure monitor per protocol - Maintain MAP above 65 #Acute Hypoxic Respiratory Failure #COVID Pneumonia #LL Mucus Plug - Presented with hypoxia requiring HHFL - Imagings with bilateral pneumonia and mucous plug - S/p aggressive chest PT - COVID Swab positive - on 05/11 Decompensated was intubated, CXR with complete white out of left lung - Vent setting: A/C-40%,6,24,450 - CCM consulted, appreciate recommendations - 05/11 s/p Bronchoscopy at the bedside - Post Bronch CXR with improved aeration - Continue Nebs per CCM - VAP bundle addressed - Aspiration precaution HOB above 30 - Daily ABG and CXR - Continue SPO2 monitoring for SPO2 goal above 92% #GI:Dysphagia #Severe Protein Calorie Malnutrition - Presented with a BMI 20.3; albumin 2.4 - 05/07 s/p PEG placement by GI - Low dose pressors this am, resume Enteral Nutrition - Nutrition on consult - Continue IVF for now, D/C once TF is at goal - Continue PPI and BR - GI signed off #Hypernatremia #Hypokalemia - Electrolytes repleted - Continue FWF - Strict intake and output - Monitor and replace electrolytes as needed - Trend BMP #COVID Pneumonia #Leukocytosis - COVID swab positive - Blood culture and urine culture are negative - Sputum culture NGTD - Patient remains afebrile - Completed IV steroids and Remdesevir course - Continue to F/U on B.cult - Daily CBC monitor #Endo: Glycemic Control - Continue BG check Q6hrs - No SSI at this time - Continue IVF - Avoid hypoglycemia #DVT prophylaxis - Continue AC- Lovenox SubQ - SCDs to bilateral lower extremities while in bed The high probability of a clinically significant, sudden or life threatening deterioration of the [multiple] system(s) required my full and direct attention, intervention and personal management. The aggregate critical care time was [60] minutes. This time is in addition to time spent performing reported procedures but includes the following: [x] Data Review and interpretation [x] Patient assessment and monitoring of vital signs [x] Documentation [x] Medication orders and management Disposition Plan: ICU Total Time Spent with Patient (Minutes): 60 History Interval history: Patient seen and examined at the bedside. Intubated and unresponsive, not on any sedation. Hypotensive and tachycardic this am, with low grade Temp, pressor requirement went up. ANIYA overnight Hospitalist Physical - Constitutional Vitals: Temp Pulse Resp BP Pulse Ox 99.4 F 119 H 33 H 91/64 97 05/14/21 12:00 05/14/21 15:30 05/14/21 15:15 05/14/21 15:30 05/14/21 15:30 General appearance: Present: no acute distress, cachectic, other (On the vent) - EENT Eyes: Present: PERRL - Respiratory Respiratory effort: normal Respiratory: bilateral: rhonchi - Cardiovascular Rhythm: regular Heart Sounds: Present: S1 & S2 - Extremities Extremities: no ischemia, pulses intact, pulses symmetrical Extremity abnormal: edema - Peripheral Assessment Generalized Edema Type: Non-pitting Edema Degree: 2+ Capillary Refill: < 3 seconds Skin Temperature: Warm Peripheral Pulses: within normal limits - Abdominal General gastrointestinal: soft, non-distended, normal bowel sounds - Integumentary Integumentary: Present: warm, dry - Psychiatric Psychiatric: other (On the vent) - Neurologic Neurologic: other (On the vent) - Allied Health Allied health notes reviewed: nursing, case management HEART Score - HEART Score Age: 45-65 Risk factors: 1-2 risk factors - Critical Actions Critical Actions: 0-3 pts:0.9-1.7%risk of adverse cardiac event.Candidate for discharge Results - Labs CBC & Chem 7: 05/14/21 04:02 05/14/21 04:02 Labs: Laboratory Last Values WBC 13.0 K/mm3 (4.5-11.0) H 05/14/21 04:02 RBC 3.12 M/mm3 (3.65-5.03) L 05/14/21 04:02 Hgb 9.3 gm/dl (11.8-15.2) L 05/14/21 04:02 Hct 29.4 % (35.5-45.6) L 05/14/21 04:02 MCV 94 fl (84-94) 05/14/21 04:02 MCH 30 pg (28-32) 05/14/21 04:02 MCHC 32 % (32-34) 05/14/21 04:02 RDW 15.2 % (13.2-15.2) 05/14/21 04:02 Plt Count 130 K/mm3 (140-440) L 05/14/21 04:02 Lymph % (Auto) 4.9 % (13.4-35.0) L 05/11/21 02:30 [place] % (Auto) 10.6 % (0.0-7.3) H 05/11/21 02:30 Eos % (Auto) 0.0 % (0.0-4.3) 05/11/21 02:30 Baso % (Auto) 0.5 % (0.0-1.8) 05/11/21 02:30 Lymph # (Auto) 0.6 K/mm3 (1.2-5.4) L 05/11/21 02:30 [place] # (Auto) 1.3 K/mm3 (0.0-0.8) H 05/11/21 02:30 Eos # (Auto) 0.0 K/mm3 (0.0-0.4) 05/11/21 02:30 Baso # (Auto) 0.1 K/mm3 (0.0-0.1) 05/11/21 02:30 Add Manual Diff Complete 05/06/21 07:02 Total Counted 100 05/06/21 07:02 Seg Neutrophils % 84.0 % (40.0-70.0) H 05/11/21 02:30 Seg Neuts % (Manual) 82.0 % (40.0-70.0) H 05/06/21 07:02 Band Neutrophils % 9.0 % 05/06/21 07:02 Lymphocytes % (Manual) 4.0 % (13.4-35.0) L 05/06/21 07:02 Reactive Lymphs % (Man) 0 % 05/06/21 07:02 Monocytes % (Manual) 5.0 % (0.0-7.3) 05/06/21 07:02 Eosinophils % (Manual) 0 % (0.0-4.3) 05/06/21 07:02 Basophils % (Manual) 0 % (0.0-1.8) 05/06/21 07:02 Metamyelocytes % 0 % 05/06/21 07:02 Myelocytes % 0 % 05/06/21 07:02 Promyelocytes % 0 % 05/06/21 07:02 Blast Cells % 0 % 05/06/21 07:02 Nucleated RBC % Not Reportable 05/06/21 07:02 Seg Neutrophils # 10.4 K/mm3 (1.8-7.7) H 05/11/21 02:30 Seg Neutrophils # Man 9.6 K/mm3 (1.8-7.7) H 05/06/21 07:02 Band Neutrophils # 1.1 K/mm3 05/06/21 07:02 Lymphocytes # (Manual) 0.5 K/mm3 (1.2-5.4) L 05/06/21 07:02 Abs React Lymphs (Man) 0.0 K/mm3 05/06/21 07:02 Monocytes # (Manual) 0.6 K/mm3 (0.0-0.8) 05/06/21 07:02 Eosinophils # (Manual) 0.0 K/mm3 (0.0-0.4) 05/06/21 07:02 Basophils # (Manual) 0.0 K/mm3 (0.0-0.1) 05/06/21 07:02 Metamyelocytes # 0.0 K/mm3 05/06/21 07:02 Myelocytes # 0.0 K/mm3 05/06/21 07:02 Promyelocytes # 0.0 K/mm3 05/06/21 07:02 Blast Cells # 0.0 K/mm3 05/06/21 07:02 WBC Morphology Not Reportable 05/06/21 07:02 Hypersegmented Neuts Not Reportable 05/06/21 07:02 Hyposegmented Neuts Not Reportable 05/06/21 07:02 Hypogranular Neuts Not Reportable 05/06/21 07:02 Smudge Cells Not Reportable 05/06/21 07:02 Toxic Granulation Not Reportable 05/06/21 07:02 Toxic Vacuolation Not Reportable 05/06/21 07:02 Dohle Bodies Not Reportable 05/06/21 07:02 Pelger-Huet Anomaly Not Reportable 05/06/21 07:02 Jeannette Rods Not Reportable 05/06/21 07:02 Platelet Estimate Consistent w auto 05/06/21 07:02 Clumped Platelets Not Reportable 05/06/21 07:02 Plt Clumps, EDTA Not Reportable 05/06/21 07:02 Large Platelets Not Reportable 05/06/21 07:02 Giant Platelets Not Reportable 05/06/21 07:02 Platelet Satelliting Not Reportable 05/06/21 07:02 Plt Morphology Comment Not Reportable 05/06/21 07:02 RBC Morphology Normal 05/06/21 07:02 Dimorphic RBCs Not Reportable 05/06/21 07:02 Polychromasia Not Reportable 05/06/21 07:02 Hypochromasia Not Reportable 05/06/21 07:02 Poikilocytosis Not Reportable 05/06/21 07:02 Anisocytosis Not Reportable 05/06/21 07:02 Microcytosis Not Reportable 05/06/21 07:02 Macrocytosis Not Reportable 05/06/21 07:02 Spherocytes Not Reportable 05/06/21 07:02 Pappenheimer Bodies Not Reportable 05/06/21 07:02 Sickle Cells Not Reportable 05/06/21 07:02 Target Cells Not Reportable 05/06/21 07:02 Tear Drop Cells Not Reportable 05/06/21 07:02 Ovalocytes Not Reportable 05/06/21 07:02 Helmet Cells Not Reportable 05/06/21 07:02 [place] Bodies Not Reportable 05/06/21 07:02 [place] Rings Not Reportable 05/06/21 07:02 [place] Cells Not Reportable 05/06/21 07:02 Bite Cells Not Reportable 05/06/21 07:02 Crenated Cell Not Reportable 05/06/21 07:02 Elliptocytes Not Reportable 05/06/21 07:02 Acanthocytes (Spur) Not Reportable 05/06/21 07:02 Rouleaux Not Reportable 05/06/21 07:02 Hemoglobin C Crystals Not Reportable 05/06/21 07:02 Schistocytes Not Reportable 05/06/21 07:02 Malaria parasites Not Reportable 05/06/21 07:02 ESR 60 mm/Hr (0-20) 05/04/21 13:28 Steve Bodies Not Reportable 05/06/21 07:02 Hem Pathologist Commnt No 05/06/21 07:02 PT 16.0 Sec. (12.2-14.9) H 05/07/21 07:28 INR 1.16 (0.87-1.13) H 05/07/21 07:28 APTT 43.8 Sec. (24.2-36.6) H 05/07/21 07:28 D-Dimer 690.97 ng/mlDDU (0-234) H 04/30/21 06:20 ABG pH 7.490 pH Units (7.350-7.450) H 05/13/21 04:37 POC ABG pCO2 129.5 mmHg (32.0-48.0) H 05/11/21 03:20 ABG pCO2 49.3 mm Hg 05/13/21 04:37 POC ABG pO2 139.1 mmHg (83-108) H 05/11/21 03:20 ABG pO2 70.2 mm Hg (80.0-90.0) L 05/13/21 04:37 POC ABG HCO3 37.8 05/11/21 03:20 ABG HCO3 36.8 mmol/L (20.0-26.0) H 05/13/21 04:37 ABG O2 Saturation 96.6 % (95.0-99.0) 05/13/21 04:37 ABG O2 Content 13.2 (0.0-44) 05/13/21 04:37 POC ABG Base Excess 4.9 05/11/21 03:20 ABG Base Excess 12.0 mmol/L (-2.0-3.0) H 05/13/21 04:37 ABG Hemoglobin 9.9 gm/dl (14.0-18.0) L 05/13/21 04:37 ABG Oxyhemoglobin 98.4 (94-98) H 05/11/21 03:20 ABG Carboxyhemoglobin 1.5 % (0.0-5.0) 05/13/21 04:37 ABG Methemoglobin 0.6 % (0.0-1.5) 05/13/21 04:37 ABG Sodium 154.5 mmol/L (136.0-145.0) H 05/11/21 03:20 ABG Potassium 5.4 mmol/L (3.40-4.50) H 05/11/21 03:20 ABG Chloride 114.0 mmol/L (98-107) H 05/11/21 03:20 ABG Glucose 128 mg/dL (65-95) H 05/11/21 03:20 Oxyhemoglobin 94.7 % (95.0-99.0) L 05/13/21 04:37 Carboxyhemoglobin 0.3 (0.5-1.5) L 05/11/21 03:20 FiO2 40 % 05/13/21 04:37 FiO2 % 100.0 05/11/21 03:20 Sodium 146 mmol/L (137-145) H 05/14/21 04:02 Potassium 3.1 mmol/L (3.6-5.0) L D 05/14/21 04:02 Chloride 104.1 mmol/L (98-107) 05/14/21 04:02 Carbon Dioxide 33 mmol/L (22-30) H 05/14/21 04:02 Anion Gap 12 mmol/L 05/14/21 04:02 BUN 17 mg/dL (9-20) 05/14/21 04:02 Creatinine 0.2 mg/dL (0.8-1.3) L 05/14/21 04:02 Estimated GFR > 60 ml/min 05/14/21 04:02 BUN/Creatinine Ratio 85 % 05/14/21 04:02 Glucose 132 mg/dL (75-100) H 05/14/21 04:02 POC Glucose 106 mg/dL (70-105) H 05/14/21 11:35 Lactic Acid 1.20 mmol/L (0.7-2.0) 04/21/21 20:26 Calcium 8.5 mg/dL (8.4-10.2) 05/14/21 04:02 Phosphorus 2.30 mg/dL (2.5-4.5) L 05/14/21 04:02 Magnesium 1.90 mg/dL (1.7-2.3) 05/14/21 04:02 Ferritin 930.1 ng/mL (30.0-300.0) H 04/30/21 06:20 Total Bilirubin 0.70 mg/dL (0.1-1.2) 04/29/21 04:00 AST 63 units/L (5-40) H 04/29/21 04:00 ALT 37 units/L (7-56) 04/29/21 04:00 Alkaline Phosphatase 58 units/L (35-129) 04/29/21 04:00 Lactate Dehydrogenase 423 units/L (91-180) H 04/30/21 06:20 C-Reactive Protein 15.40 mg/dL (0.00-1.30) H 05/04/21 13:28 Total Protein 5.6 g/dL (6.3-8.2) L 04/29/21 04:00 Albumin 2.4 g/dL (3.9-5) L 04/29/21 04:00 Albumin/Globulin Ratio 0.8 % 04/29/21 04:00 Lipase 7 units/L (13-60) L 04/21/21 16:08 Vitamin B12 1039 pg/mL (211-911) H 04/24/21 07:56 Procalcitonin 0.92 ng/mL (<0.15) 05/05/21 09:30 TSH 1.330 mlU/mL (0.270-4.200) 04/24/21 07:56 Free T4 1.03 ng/dL (0.76-1.46) 04/24/21 07:56 Arterial Blood Glucose 128 mg/dL (65-95) H 05/11/21 03:20 Arterial Blood Ionized Calcium 4.7 mg/dL (4.6-5.3) 05/11/21 03:20 Urine Color [place] (Yellow) 04/21/21 Unknown Urine Turbidity Clear (Clear) 04/21/21 Unknown Urine pH 5.0 (5.0-7.0) 04/21/21 Unknown Ur Specific [place] 1.027 (1.003-1.030) 04/21/21 Unknown Urine Protein 100 mg/dl mg/dL (Negative) 04/21/21 Unknown Urine Glucose (UA) Neg mg/dL (Negative) 04/21/21 Unknown Urine Ketones 20 mg/dL (Negative) 04/21/21 Unknown Urine Blood Mod (Negative) 04/21/21 Unknown Urine Nitrite Neg (Negative) 04/21/21 Unknown Urine Bilirubin Neg (Negative) 04/21/21 Unknown Urine Urobilinogen 4.0 mg/dL (<2.0) 04/21/21 Unknown Ur Leukocyte Esterase Neg (Negative) 04/21/21 Unknown Urine WBC (Auto) < 1.0 /HPF (0.0-6.0) 04/21/21 Unknown Urine RBC (Auto) < 1.0 /HPF (0.0-6.0) 04/21/21 Unknown Urine Mucus Few /HPF 04/21/21 Unknown Valproic Acid 10.9 ug/mL (50-100) L 05/04/21 13:28 Coronavirus (PCR) Positive (Negative) A 05/09/21 Unknown Microbiology: Microbiology 05/11/21 02:51 Tracheal Aspirate Sputum Culture - Final [place]/IV: Voiding Method Indwelling Catheter Active Medications - Current Medications Current Medications: Generic Name Dose Route Start Last Admin Trade Name Freq PRN Reason Stop Dose Admin Acetaminophen 650 mg 04/21/21 22:31 05/14/21 07:28 Acetaminophen 325 Mg Tab PO 650 mg Q4H PRN Administration Pain MILD(1-3)/Fever >100.5/RAY Albuterol 2.5 mg 05/09/21 12:00 Albuterol 2.5 Mg/3 Ml Nebu IH Q4HRT PRN Shortness Of Breath Lipase/Protease/Amylase 1 each 05/07/21 13:04 Lipase 10,500/Protease 25,000/Amylase 43,750 (Units) Dr Espinoza FEEDTUBE PRN PRN For Clogged Feeding Tube Enoxaparin Sodium 40 mg 05/11/21 22:00 05/13/21 21:27 Enoxaparin 40 Mg/0.4 Ml Inj SUB-Q 40 mg QDAY@2200 EDDIE Administration Protocol Famotidine 20 mg 05/13/21 10:00 05/14/21 09:23 Famotidine 20 Mg Tab FEEDTUBE 20 mg BID EDDIE Administration Fentanyl 50 mcg 05/11/21 19:33 05/11/21 20:27 Fentanyl 100 Mcg/2 Ml Inj IV 50 mcg Q10MIN PRN Administration ANALGESIA Hydrocortisone Sodium Succinate 100 mg 05/14/21 12:00 05/14/21 11:53 Hydrocortisone Sod Succ 100 Mg/2 Ml Vial IV 100 mg Q8HR EDDIE Administration NORepinephrine/NS 8 MG-250 ML 8 mg in 250 mls @ 3.75 mls/hr 05/11/21 02:00 05/14/21 14:00 Norepinephrine/Ns 8 Mg-250 Ml (Double Conc) IV 8 mcg/min TITRATE EDDIE 15 mls/hr Titration Protocol 2 MCG/MIN Vasopressin 20 unit/ Sodium 101 mls @ 9.09 mls/hr 05/11/21 04:00 05/13/21 08:13 Chloride IV 0 units/min TITR EDDIE 0 mls/hr Titration Protocol 0.03 UNITS/MIN Fentanyl Citrate 2,000 mcg in 100 mls @ 2.64 mls/hr 05/11/21 20:00 Fentanyl Drip Premix IV TITR EDDIE Protocol 1 MCG/KG/HR Lorazepam 2 mg 05/11/21 01:43 Lorazepam 2 Mg/Ml Vial IV Q1H PRN Seizures Metoclopramide HCl 10 mg 04/21/21 22:31 Metoclopramide 10 Mg/2 Ml Inj IV Q6H PRN Nausea And Vomiting Metoprolol Tartrate 2.5 mg 05/06/21 16:12 05/14/21 07:39 Metoprolol Tartrate 5 Mg/5 Ml Inj IV 2.5 mg Q6HR PRN Administration Tachyarrhythmias Ondansetron HCl 4 mg 04/21/21 22:31 Ondansetron 4 Mg/2 Ml Inj IV Q8H PRN Nausea And Vomiting Senna 17.2 mg 05/13/21 22:00 05/13/21 21:23 Sennosides 8.6 Mg Tab FEEDTUBE 17.2 mg QHS EDDIE Administration Simple Syrup 15 ml 05/07/21 13:04 Simple Syrup 15 Ml FEEDTUBE PRN PRN Hypoglycemia Simple Syrup 30 ml 05/07/21 13:04 Simple Syrup 15 Ml FEEDTUBE PRN PRN Hypoglycemia Sodium Bicarbonate 325 mg 05/07/21 13:04 Sodium Bicarbonate 325 Mg Tab FEEDTUBE PRN PRN For Clogged Feeding Tube Sodium Chloride 10 ml 04/22/21 10:00 05/14/21 09:24 Sodium Chloride 0.9% 10 Ml Flush Syringe IV 10 ml BID EDDIE Administration Sodium Chloride 10 ml 04/21/21 22:31 Sodium Chloride 0.9% 10 Ml Flush Syringe IV PRN PRN LINE FLUSH Valproic Acid 250 mg 05/13/21 22:00 05/13/21 21:22 Valproic Acid 250 Mg/5 Ml Oral Liqd FEEDTUBE 250 mg QHS EDDIE Administration Nutrition/Malnutrition Assess - Dietary Evaluation Nutrition/Malnutrition Findings: Nutrition Notes Start: 04/22/21 18:07 Freq: Status: Active Protocol: Document 05/12/21 13:28 RICKY (Rec: 05/12/21 13:54 RICKY [id number]) Nutrition Notes Need for Assessment generated from: Low BMI Initial or Follow up Brief Note Current Diet TF - Nepro w/CARBSTEADY @ 40 ml/hr (since L 05/11). Labs/Tests 05/12: Na 154, Cl 111.4, CO2 34, BUN 41, Crea 0.5, Glu 185, Phos 2.4. Pertinent Medications 05/12: Vasopressin 20 units in 101 ml @ 9.09 ml/hr, others nutritionally unremarkable. Height 6 ft Weight 52.8 kg Mcbh [place] Body Weight (kg) 80.90 BMI 15.7 Weight change and time frame Discrepancy of 14.7 Kg body weight loss in 1 day reported. Likely a mistake. Weight Status Underweight Subjective/Other Information RD consult for Low BMI assessment. Likely a mistake meassurement, unable to contact RN to corroborate. F/U to check for actual Body Weight and assess accordingly. Pt still on pressors, Na lab still high, and continues on Mechanical ventilation. Percent of energy/protein needs met: Prescribed Nepro w/CARBSTEADY @ 40 ml/hr provides for energy /protein needs (1,728 Kcal/78 g) during LOS, 96% Kcal; 96% AA. #1 Nutrition Diagnosis Inadequate oral intake Diagnosis Progress(for reassessment Continues documentation) Nutrition Intervention Nutrition Support: Nepro w/CARBSTEADY @ 40 ml/hr. Flush: 200 ml water Q 4 hr, or as per MD. Kcal 1,728 Protein (gm) 78 Carbohydrates (gm) 155 Fat (gm) 92 Fluid (mL) 698 Fiber (gm) 12 % RDI: 96% Kcal; 96% AA. Goal #1 Provide at least 75% of energy /protein needs through Enteral Feeding during LOS. Follow-Up By: 05/15/21 Additional Comments Continue monitoring TF tolerance and BM. Check on body weight. <ELIJAH ROBLERO - Last Filed: 05/16/21 12:03> Assessment and Plan Assessment and plan: I saw and evaluated the patient. Discussed with the nurse practitioner and agree with their findings and plan as documented in this note. Hospitalist Physical - Constitutional Vitals: Temp Pulse Resp BP Pulse Ox 97.8 F 96 H 27 H 86/56 96 05/16/21 11:19 05/16/21 08:30 05/16/21 08:00 05/16/21 08:30 05/16/21 10:25 Results - Labs CBC & Chem 7: 05/16/21 04:00 05/16/21 04:00 Labs: Laboratory Last Values WBC 20.8 K/mm3 (4.5-11.0) H 05/16/21 04:00 RBC 2.91 M/mm3 (3.65-5.03) L 05/16/21 04:00 Hgb 8.9 gm/dl (11.8-15.2) L 05/16/21 04:00 Hct 27.5 % (35.5-45.6) L 05/16/21 04:00 MCV 94 fl (84-94) 05/16/21 04:00 MCH 30 pg (28-32) 05/16/21 04:00 MCHC 32 % (32-34) 05/16/21 04:00 RDW 14.7 % (13.2-15.2) 05/16/21 04:00 Plt Count 108 K/mm3 (140-440) L 05/16/21 04:00 Lymph % (Auto) 4.9 % (13.4-35.0) L 05/11/21 02:30 [place] % (Auto) 10.6 % (0.0-7.3) H 05/11/21 02:30 Eos % (Auto) 0.0 % (0.0-4.3) 05/11/21 02:30 Baso % (Auto) 0.5 % (0.0-1.8) 05/11/21 02:30 Lymph # (Auto) 0.6 K/mm3 (1.2-5.4) L 05/11/21 02:30 [place] # (Auto) 1.3 K/mm3 (0.0-0.8) H 05/11/21 02:30 Eos # (Auto) 0.0 K/mm3 (0.0-0.4) 05/11/21 02:30 Baso # (Auto) 0.1 K/mm3 (0.0-0.1) 05/11/21 02:30 Add Manual Diff Complete 05/06/21 07:02 Total Counted 100 05/06/21 07:02 Seg Neutrophils % 84.0 % (40.0-70.0) H 05/11/21 02:30 Seg Neuts % (Manual) 82.0 % (40.0-70.0) H 05/06/21 07:02 Band Neutrophils % 9.0 % 05/06/21 07:02 Lymphocytes % (Manual) 4.0 % (13.4-35.0) L 05/06/21 07:02 Reactive Lymphs % (Man) 0 % 05/06/21 07:02 Monocytes % (Manual) 5.0 % (0.0-7.3) 05/06/21 07:02 Eosinophils % (Manual) 0 % (0.0-4.3) 05/06/21 07:02 Basophils % (Manual) 0 % (0.0-1.8) 05/06/21 07:02 Metamyelocytes % 0 % 05/06/21 07:02 Myelocytes % 0 % 05/06/21 07:02 Promyelocytes % 0 % 05/06/21 07:02 Blast Cells % 0 % 05/06/21 07:02 Nucleated RBC % Not Reportable 05/06/21 07:02 Seg Neutrophils # 10.4 K/mm3 (1.8-7.7) H 05/11/21 02:30 Seg Neutrophils # Man 9.6 K/mm3 (1.8-7.7) H 05/06/21 07:02 Band Neutrophils # 1.1 K/mm3 05/06/21 07:02 Lymphocytes # (Manual) 0.5 K/mm3 (1.2-5.4) L 05/06/21 07:02 Abs React Lymphs (Man) 0.0 K/mm3 05/06/21 07:02 Monocytes # (Manual) 0.6 K/mm3 (0.0-0.8) 05/06/21 07:02 Eosinophils # (Manual) 0.0 K/mm3 (0.0-0.4) 05/06/21 07:02 Basophils # (Manual) 0.0 K/mm3 (0.0-0.1) 05/06/21 07:02 Metamyelocytes # 0.0 K/mm3 05/06/21 07:02 Myelocytes # 0.0 K/mm3 05/06/21 07:02 Promyelocytes # 0.0 K/mm3 05/06/21 07:02 Blast Cells # 0.0 K/mm3 05/06/21 07:02 WBC Morphology Not Reportable 05/06/21 07:02 Hypersegmented Neuts Not Reportable 05/06/21 07:02 Hyposegmented Neuts Not Reportable 05/06/21 07:02 Hypogranular Neuts Not Reportable 05/06/21 07:02 Smudge Cells Not Reportable 05/06/21 07:02 Toxic Granulation Not Reportable 05/06/21 07:02 Toxic Vacuolation Not Reportable 05/06/21 07:02 Dohle Bodies Not Reportable 05/06/21 07:02 Pelger-Huet Anomaly Not Reportable 05/06/21 07:02 Jeannette Rods Not Reportable 05/06/21 07:02 Platelet Estimate Consistent w auto 05/06/21 07:02 Clumped Platelets Not Reportable 05/06/21 07:02 Plt Clumps, EDTA Not Reportable 05/06/21 07:02 Large Platelets Not Reportable 05/06/21 07:02 Giant Platelets Not Reportable 05/06/21 07:02 Platelet Satelliting Not Reportable 05/06/21 07:02 Plt Morphology Comment Not Reportable 05/06/21 07:02 RBC Morphology Normal 05/06/21 07:02 Dimorphic RBCs Not Reportable 05/06/21 07:02 Polychromasia Not Reportable 05/06/21 07:02 Hypochromasia Not Reportable 05/06/21 07:02 Poikilocytosis Not Reportable 05/06/21 07:02 Anisocytosis Not Reportable 05/06/21 07:02 Microcytosis Not Reportable 05/06/21 07:02 Macrocytosis Not Reportable 05/06/21 07:02 Spherocytes Not Reportable 05/06/21 07:02 Pappenheimer Bodies Not Reportable 05/06/21 07:02 Sickle Cells Not Reportable 05/06/21 07:02 Target Cells Not Reportable 05/06/21 07:02 Tear Drop Cells Not Reportable 05/06/21 07:02 Ovalocytes Not Reportable 05/06/21 07:02 Helmet Cells Not Reportable 05/06/21 07:02 [place] Bodies Not Reportable 05/06/21 07:02 [place] Rings Not Reportable 05/06/21 07:02 [place] Cells Not Reportable 05/06/21 07:02 Bite Cells Not Reportable 05/06/21 07:02 Crenated Cell Not Reportable 05/06/21 07:02 Elliptocytes Not Reportable 05/06/21 07:02 Acanthocytes (Spur) Not Reportable 05/06/21 07:02 Rouleaux Not Reportable 05/06/21 07:02 Hemoglobin C Crystals Not Reportable 05/06/21 07:02 Schistocytes Not Reportable 05/06/21 07:02 Malaria parasites Not Reportable 05/06/21 07:02 ESR 60 mm/Hr (0-20) 05/04/21 13:28 Steve Bodies Not Reportable 05/06/21 07:02 Hem Pathologist Commnt No 05/06/21 07:02 PT 14.6 Sec. (12.2-14.9) 05/15/21 05:00 INR 1.03 (0.87-1.13) 05/15/21 05:00 APTT 43.8 Sec. (24.2-36.6) H 05/07/21 07:28 D-Dimer 690.97 ng/mlDDU (0-234) H 04/30/21 06:20 ABG pH 7.514 pH Units (7.350-7.450) H 05/16/21 03:09 POC ABG pCO2 129.5 mmHg (32.0-48.0) H 05/11/21 03:20 ABG pCO2 42.9 mm Hg 05/16/21 03:09 POC ABG pO2 139.1 mmHg (83-108) H 05/11/21 03:20 ABG pO2 66.8 mm Hg (80.0-90.0) L 05/16/21 03:09 POC ABG HCO3 37.8 05/11/21 03:20 ABG HCO3 33.8 mmol/L (20.0-26.0) H 05/16/21 03:09 ABG O2 Saturation 96.2 % (95.0-99.0) 05/16/21 03:09 ABG O2 Content 11.8 (0.0-44) 05/16/21 03:09 POC ABG Base Excess 4.9 05/11/21 03:20 ABG Base Excess 9.9 mmol/L (-2.0-3.0) H 05/16/21 03:09 ABG Hemoglobin 8.9 gm/dl (14.0-18.0) L 05/16/21 03:09 ABG Oxyhemoglobin 98.4 (94-98) H 05/11/21 03:20 ABG Carboxyhemoglobin 1.5 % (0.0-5.0) 05/16/21 03:09 ABG Methemoglobin 0.5 % (0.0-1.5) 05/16/21 03:09 ABG Sodium 154.5 mmol/L (136.0-145.0) H 05/11/21 03:20 ABG Potassium 5.4 mmol/L (3.40-4.50) H 05/11/21 03:20 ABG Chloride 114.0 mmol/L (98-107) H 05/11/21 03:20 ABG Glucose 128 mg/dL (65-95) H 05/11/21 03:20 Oxyhemoglobin 94.2 % (95.0-99.0) L 05/16/21 03:09 Carboxyhemoglobin 0.3 (0.5-1.5) L 05/11/21 03:20 FiO2 30 % 05/16/21 03:09 FiO2 % 100.0 05/11/21 03:20 Sodium 148 mmol/L (137-145) H 05/16/21 04:00 Potassium 3.1 mmol/L (3.6-5.0) L 05/16/21 04:00 Chloride 107.1 mmol/L (98-107) H 05/16/21 04:00 Carbon Dioxide 32 mmol/L (22-30) H 05/16/21 04:00 Anion Gap 12 mmol/L 05/16/21 04:00 BUN 17 mg/dL (9-20) 05/16/21 04:00 Creatinine 0.2 mg/dL (0.8-1.3) L 05/16/21 04:00 Estimated GFR > 60 ml/min 05/16/21 04:00 BUN/Creatinine Ratio 85 % 05/16/21 04:00 Glucose 122 mg/dL (75-100) H 05/16/21 04:00 POC Glucose 103 mg/dL (70-105) 05/16/21 11:10 Lactic Acid 1.20 mmol/L (0.7-2.0) 04/21/21 20:26 Calcium 7.8 mg/dL (8.4-10.2) L 05/16/21 04:00 Phosphorus 3.40 mg/dL (2.5-4.5) D 05/15/21 05:00 Magnesium 1.90 mg/dL (1.7-2.3) 05/15/21 05:00 Ferritin 930.1 ng/mL (30.0-300.0) H 04/30/21 06:20 Total Bilirubin 0.70 mg/dL (0.1-1.2) 04/29/21 04:00 AST 63 units/L (5-40) H 04/29/21 04:00 ALT 37 units/L (7-56) 04/29/21 04:00 Alkaline Phosphatase 58 units/L (35-129) 04/29/21 04:00 Lactate Dehydrogenase 423 units/L (91-180) H 04/30/21 06:20 C-Reactive Protein 15.40 mg/dL (0.00-1.30) H 05/04/21 13:28 Total Protein 5.6 g/dL (6.3-8.2) L 04/29/21 04:00 Albumin 2.4 g/dL (3.9-5) L 04/29/21 04:00 Albumin/Globulin Ratio 0.8 % 04/29/21 04:00 Lipase 7 units/L (13-60) L 04/21/21 16:08 Vitamin B12 1039 pg/mL (211-911) H 04/24/21 07:56 Procalcitonin 0.92 ng/mL (<0.15) 05/05/21 09:30 TSH 1.330 mlU/mL (0.270-4.200) 04/24/21 07:56 Free T4 1.03 ng/dL (0.76-1.46) 04/24/21 07:56 Arterial Blood Glucose 128 mg/dL (65-95) H 05/11/21 03:20 Arterial Blood Ionized Calcium 4.7 mg/dL (4.6-5.3) 05/11/21 03:20 Urine Color [place] (Yellow) 04/21/21 Unknown Urine Turbidity Clear (Clear) 04/21/21 Unknown Urine pH 5.0 (5.0-7.0) 04/21/21 Unknown Ur Specific [place] 1.027 (1.003-1.030) 04/21/21 Unknown Urine Protein 100 mg/dl mg/dL (Negative) 04/21/21 Unknown Urine Glucose (UA) Neg mg/dL (Negative) 04/21/21 Unknown Urine Ketones 20 mg/dL (Negative) 04/21/21 Unknown Urine Blood Mod (Negative) 04/21/21 Unknown Urine Nitrite Neg (Negative) 04/21/21 Unknown Urine Bilirubin Neg (Negative) 04/21/21 Unknown Urine Urobilinogen 4.0 mg/dL (<2.0) 04/21/21 Unknown Ur Leukocyte Esterase Neg (Negative) 04/21/21 Unknown Urine WBC (Auto) < 1.0 /HPF (0.0-6.0) 04/21/21 Unknown Urine RBC (Auto) < 1.0 /HPF (0.0-6.0) 04/21/21 Unknown Urine Mucus Few /HPF 04/21/21 Unknown Valproic Acid 10.9 ug/mL (50-100) L 05/04/21 13:28 Coronavirus (PCR) Positive (Negative) A 05/09/21 Unknown [place]/IV: Voiding Method Indwelling Catheter Active Medications - Current Medications Current Medications: Generic Name Dose Route Start Last Admin Trade Name Freq PRN Reason Stop Dose Admin Acetaminophen 650 mg 04/21/21 22:31 05/14/21 07:28 Acetaminophen 325 Mg Tab PO 650 mg Q4H PRN Administration Pain MILD(1-3)/Fever >100.5/RAY Albuterol 2.5 mg 05/09/21 12:00 Albuterol 2.5 Mg/3 Ml Nebu IH Q4HRT PRN Shortness Of Breath Lipase/Protease/Amylase 1 each 05/07/21 13:04 Lipase 10,500/Protease 25,000/Amylase 43,750 (Units) Dr Cap FEEDTUBE PRN PRN For Clogged Feeding Tube Enoxaparin Sodium 40 mg 05/11/21 22:00 05/15/21 21:47 Enoxaparin 40 Mg/0.4 Ml Inj SUB-Q 40 mg QDAY@2200 EDDIE Administration Protocol Famotidine 20 mg 05/13/21 10:00 05/16/21 09:06 Famotidine 20 Mg Tab FEEDTUBE 20 mg BID EDDIE Administration Fentanyl 50 mcg 05/11/21 19:33 05/11/21 20:27 Fentanyl 100 Mcg/2 Ml Inj IV 50 mcg Q10MIN PRN Administration ANALGESIA Hydrocortisone Sodium Succinate 100 mg 05/14/21 12:00 05/16/21 05:05 Hydrocortisone Sod Succ 100 Mg/2 Ml Vial IV 100 mg Q8HR EDDIE Administration NORepinephrine/NS 8 MG-250 ML 8 mg in 250 mls @ 3.75 mls/hr 05/11/21 02:00 05/16/21 00:40 Norepinephrine/Ns 8 Mg-250 Ml (Double Conc) IV 3 mcg/min TITRATE EDDIE 5.625 mls/hr Titration Protocol 2 MCG/MIN Vasopressin 20 unit/ Sodium 101 mls @ 9.09 mls/hr 05/11/21 04:00 05/13/21 08:13 Chloride IV 0 units/min TITR EDDIE 0 mls/hr Titration Protocol 0.03 UNITS/MIN Fentanyl Citrate 2,000 mcg in 100 mls @ 2.64 mls/hr 05/11/21 20:00 Fentanyl Drip Premix IV TITR EDDIE Protocol 1 MCG/KG/HR Dextrose 1,000 mls @ 75 mls/hr 05/15/21 06:00 05/15/21 16:15 D5w IV 75 mls/hr DIRECT EDDIE Administration Lorazepam 2 mg 05/11/21 01:43 Lorazepam 2 Mg/Ml Vial IV Q1H PRN Seizures Metoclopramide HCl 10 mg 04/21/21 22:31 Metoclopramide 10 Mg/2 Ml Inj IV Q6H PRN Nausea And Vomiting Metoprolol Tartrate 2.5 mg 05/06/21 16:12 05/14/21 07:39 Metoprolol Tartrate 5 Mg/5 Ml Inj IV 2.5 mg Q6HR PRN Administration Tachyarrhythmias Ondansetron HCl 4 mg 04/21/21 22:31 Ondansetron 4 Mg/2 Ml Inj IV Q8H PRN Nausea And Vomiting Senna 17.2 mg 05/13/21 22:00 05/15/21 21:47 Sennosides 8.6 Mg Tab FEEDTUBE 17.2 mg QHS EDDIE Administration Simple Syrup 15 ml 05/07/21 13:04 Simple Syrup 15 Ml FEEDTUBE PRN PRN Hypoglycemia Simple Syrup 30 ml 05/07/21 13:04 Simple Syrup 15 Ml FEEDTUBE PRN PRN Hypoglycemia Sodium Bicarbonate 325 mg 05/07/21 13:04 Sodium Bicarbonate 325 Mg Tab FEEDTUBE PRN PRN For Clogged Feeding Tube Sodium Chloride 10 ml 04/22/21 10:00 05/16/21 09:06 Sodium Chloride 0.9% 10 Ml Flush Syringe IV 10 ml BID EDDIE Administration Sodium Chloride 10 ml 04/21/21 22:31 Sodium Chloride 0.9% 10 Ml Flush Syringe IV PRN PRN LINE FLUSH Valproic Acid 250 mg 05/13/21 22:00 05/15/21 21:47 Valproic Acid 250 Mg/5 Ml Oral Liqd FEEDTUBE 250 mg QHS EDDIE Administration Nutrition/Malnutrition Assess - Dietary Evaluation Nutrition/Malnutrition Findings: Nutrition Notes Start: 04/22/21 18:07 Freq: Status: Active Protocol: Document 05/15/21 15:28 NHALL (Rec: 05/15/21 15:35 NHALL [id number]) Nutrition Notes Initial or Follow up Reassessment Current Diagnosis Respiratory Failure Other Pertinent Diagnosis COVID-19 pneu, encephalopathy Current Diet NPO Labs/Tests Na 147 Pertinent Medications D5W at 75ml/hr, Solucortef, Levophed gtt Height 6 ft Weight 53.5 kg Mcbh [place] Body Weight (kg) 80.90 BMI 16.0 Subjective/Other Information Unable to reach RN to discuss wt discrepancy. TF on hold for trach placement today. Pt remains on vent support. Burn Absent Trauma Absent #1 Nutrition Diagnosis Inadequate oral intake Diagnosis Progress(for reassessment Continues documentation) Is patient on ventilator? Yes Is Patient Ambulatory and/or Out of Bed No REE-([place]-confined to bed) 1641.108 Kcal/Kg value to use for calculation 34 Approximate Energy Requirements Using 1819 kcal/Kg Calculation Used for Recommendations Kcal/kg Additional Notes Pro needs 1.2-2g/k-107g/ day Fluid needs 1ml/kcal Nutrition Intervention Nutrition Support: When feasible, resume Nepro at 40ml/hr with 200ml water flush q4h Goal #1 Resume TF to meet nutrient needs Follow-Up By: 05/18/21 Additional Comments F/U: TF restart, Na lab/water flushes, vent support
[2021-05-14] MEDS: VALPROIC ACID 250 MG/5 ML ORAL LIQD FEEDTUBE SCH (22:13)
[2021-05-14] MEDS: ENOXAPARIN 40 MG/0.4 ML INJ SUB-Q SCH (22:13)
[2021-05-14] MEDS: SENNOSIDES 8.6 MG TAB FEEDTUBE SCH (22:13)
[2021-05-15 04:53] LABS: ABG Base Excess 10.8 mmol/L (-2.0-3.0); ABG HCO3 35.1 mmol/L (20.0-26.0); ABG Methemoglobin 0.5 % (0.0-1.5); ABG Oxygen Saturation 95.2 % (95.0-99.0); ABG PCO2 46.1 mm Hg; ABG PH 7.5 pH Units (7.350-7.450); ABG PO2 66.1 mm Hg (80.0-90.0)
[2021-05-15] MEDS: FREE WATER PO SCH ×4 (05:06→23:11)
[2021-05-15] MEDS: HYDROCORTISONE SOD SUCC 100 MG/2 ML VIAL IV SCH ×3 (05:08→23:10)
[2021-05-15 05:23] LABS: Hematocrit 28.7 % (35.5-45.6); Hemoglobin 9.3 gm/dl (11.8-15.2); Mean Corpuscular HGB Conc 32 % (32-34); Mean Corpuscular Volume 94 fl (84-94); Platelet Count 104 K/mm3 (140-440); Red Blood Count 3.07 M/mm3 (3.65-5.03); Red Cell Distribution Width 14.8 % (13.2-15.2)
[2021-05-15 05:34] LABS: INR 1.03 (0.87-1.13)
[2021-05-15 05:47] LABS: Blood Urea Nitrogen 16 mg/dL (9-20); Calcium 8.5 mg/dL (8.4-10.2); Hemolysis Index 1
[2021-05-15 05:55] LABS: BUN/Creatinine Ratio 80
[2021-05-15] MEDS: DEXTROSE 5% IN WATER 1,000 ML IV SCH ×2 (06:26→16:15)
[2021-05-15] MEDS: FAMOTIDINE 20 MG TAB FEEDTUBE SCH ×2 (10:33→21:47)
--- NOTE | 2021-05-15 10:51 | Progress Note ---
Assessment and Plan 66 y/o male with altered mental status found to be COVID positive, now with worsening respiratory failure. 05/15/21: Scheduled for trach today. Scheduled for discharge to LTACH in the morning. Continue supportive measures. can likely discontinue hydrocortisone as it has not made a difference in blood pressure. Ok with fluid boluses to help with BP. Guarded to poor prognosis. 05/14/21: Will start stress dose steroids to see if this helps with vasopressor requirement. Cytogenetics Technologist to approve procedure today, CM to follow up. No sedation, monitor fever curve. Guarded to poor prognosis. Placement once trached. 05/13/21: Appreciate Surgery Help. Trach scheduled for Tuesday. Filled out paperwork for guardian to approve trach. Daily PSV trials as tolerated. 05/12/21: Placed consult to surgery for trach and peg as patient's mental state will not allow successful weaning without a secure airway. Continue CPT therapy. CM to reach out to guardian to start working on placement. 05/10/21: Continue CPT. Called by RT yesterday for changes in breathing pattern but still with good sats. Patient is not a candidate for bipap so next step would be intubation. Asked RT to pass this on to night time staff. Still awaiting to hear from guardianship about hospice as all of their patient's are full code and they will likely not change his code status. Poor prognosis. 05/09/21: Given current clinical state, no improvement in pulmonary status, increased weakness with continued risk for aspiration in the face of COVID 19 p neumonia, I agree that hospice would be a reasonable option for this patient. Not sure what company could take current oxygen demand so if this is pursued it would likely need to be inpatient with plans of comfort and deescalation. Continue CPT and mucomyst nebs. Guarded to poor prognosis. 05/08/21: Continue CPT. Will try mucomyst nebs to see if this helps with sputum expectoration given weak cough. Guarded prognosis. Prone if able. 05/07/21: Continue CPT. Will speak with pharmacy but may need hypertonic saline neb to help induce cough to help expectorate mucous. Ideally should be bronched, but would need to either be intubated or have LMA and doubt GI will allow given COVID positive state. Guarded to poor prognosis. 05/06/21: Please continue CPT multiple times daily. Please document this. Suggest proning patient to help with oxygenation if possible. Guarded prognosis. 05/05/21: Increased CPT to 3-6x daily. Should be done with scheduled albuterol therapy. Please wake patient up for scheduled meds as we are trying to remove mucous and improve oxygenation. Will discuss with RT to pass on to night shit. Prone as much as possible. Daily net negative fluid balance 1. Mucous plug on CTA. Needs CPT but more than daily. Please increase to at least TID 2. Prone as much as possible and sleep prone at night 3. Has already finished steroids 4. Guarded prognosis. CCT 31 minutes. Subjective Date of service: 05/15/21 Principal diagnosis: Encephalopathy,COVID-19 Interval history: Still on levophed 4 but good maps. Remains unresponsive. On scheduled for trach today. Objective Vital Signs - 12hr 05/14/21 05/14/21 05/14/21 22:45 23:00 23:15 Temperature Pulse Rate 116 H 118 H 116 H Pulse Rate [ From Monitor] Respiratory 35 H 34 H 31 H Rate Blood Pressure 98/66 86/59 91/59 O2 Sat by Pulse 98 98 97 Oximetry 05/14/21 05/14/21 05/14/21 23:19 23:20 23:30 Temperature Pulse Rate 117 H 120 H 116 H Pulse Rate [ From Monitor] Respiratory 32 H 31 H Rate Blood Pressure 91/59 101/61 O2 Sat by Pulse 98 97 Oximetry 05/14/21 05/14/21 05/15/21 23:41 23:45 00:00 Temperature 98.8 F Pulse Rate 114 H 113 H Pulse Rate [ 114 H From Monitor] Respiratory 28 H 25 H Rate Blood Pressure 90/60 88/61 O2 Sat by Pulse 96 96 Oximetry 05/15/21 05/15/21 05/15/21 00:15 00:30 00:45 Temperature Pulse Rate 112 H 114 H 113 H Pulse Rate [ From Monitor] Respiratory 30 H 30 H 26 H Rate Blood Pressure 82/64 86/62 89/62 O2 Sat by Pulse 96 97 96 Oximetry 05/15/21 05/15/21 05/15/21 01:00 01:15 01:30 Temperature Pulse Rate 110 H 113 H 106 H Pulse Rate [ From Monitor] Respiratory 22 28 H 15 Rate Blood Pressure 96/62 83/58 94/67 O2 Sat by Pulse 97 96 97 Oximetry 05/15/21 05/15/21 05/15/21 01:45 02:00 02:15 Temperature Pulse Rate 109 H 108 H 112 H Pulse Rate [ From Monitor] Respiratory 20 20 31 H Rate Blood Pressure 89/66 94/63 83/60 O2 Sat by Pulse 98 98 97 Oximetry 05/15/21 05/15/21 05/15/21 02:30 02:45 03:00 Temperature Pulse Rate 110 H 109 H 114 H Pulse Rate [ From Monitor] Respiratory 25 H 25 H 33 H Rate Blood Pressure 91/67 87/59 96/65 O2 Sat by Pulse 97 97 96 Oximetry 05/15/21 05/15/21 05/15/21 03:13 03:15 03:30 Temperature 98.4 F Pulse Rate 108 H 112 H Pulse Rate [ From Monitor] Respiratory 27 H 33 H Rate Blood Pressure 91/68 99/63 O2 Sat by Pulse 97 96 Oximetry 05/15/21 05/15/21 05/15/21 03:45 04:00 04:15 Temperature Pulse Rate 105 H 111 H 108 H Pulse Rate [ 108 H From Monitor] Respiratory 20 29 H 21 Rate Blood Pressure 91/62 107/64 89/50 O2 Sat by Pulse 96 96 97 Oximetry 05/15/21 05/15/21 05/15/21 04:30 04:45 05:00 Temperature Pulse Rate 108 H 106 H 112 H Pulse Rate [ From Monitor] Respiratory 19 18 28 H Rate Blood Pressure 86/60 93/64 102/66 O2 Sat by Pulse 97 98 91 Oximetry 05/15/21 05/15/21 05/15/21 05:03 05:15 05:30 Temperature Pulse Rate 110 H 109 H 111 H Pulse Rate [ From Monitor] Respiratory 30 H 32 H Rate Blood Pressure 102/66 93/60 100/72 O2 Sat by Pulse 91 95 94 Oximetry 05/15/21 05/15/21 05/15/21 05:45 06:00 06:15 Temperature Pulse Rate 111 H 114 H 114 H Pulse Rate [ From Monitor] Respiratory 29 H 31 H 31 H Rate Blood Pressure 98/61 91/64 84/62 O2 Sat by Pulse 96 96 97 Oximetry 05/15/21 05/15/21 05/15/21 06:30 07:22 09:50 Temperature 98.2 F Pulse Rate 111 H 111 H Pulse Rate [ From Monitor] Respiratory 30 H Rate Blood Pressure 86/61 86/61 O2 Sat by Pulse 95 95 Oximetry Constitutional: other (on nrb mask sat 100%, opens eyes to tactile stimuli, doesnt follow command ) ENT: oropharynx moist, oropharynx dry Ascultation: Bilateral: rhonchi (sl better) Cardiovascular: regular rate and rhythm, PVC's noted Gastrointestinal: normoactive bowel sounds Integumentary: normal CBC and BMP: 05/15/21 05:00 05/15/21 05:00 ABG, PT/INR, D-dimer: ABG ABG pH 7.500 pH Units (7.350-7.450) H 05/15/21 04:05 POC ABG pCO2 129.5 mmHg (32.0-48.0) H 05/11/21 03:20 ABG pCO2 46.1 mm Hg 05/15/21 04:05 POC ABG pO2 139.1 mmHg (83-108) H 05/11/21 03:20 ABG pO2 66.1 mm Hg (80.0-90.0) L 05/15/21 04:05 POC ABG HCO3 37.8 05/11/21 03:20 ABG O2 Saturation 95.2 % (95.0-99.0) 05/15/21 04:05 PT/INR, D-dimer PT 14.6 Sec. (12.2-14.9) 05/15/21 05:00 INR 1.03 (0.87-1.13) 05/15/21 05:00 D-Dimer 690.97 ng/mlDDU (0-234) H 04/30/21 06:20 Abnormal lab findings: Abnormal Labs 04/21/21 04/21/21 04/22/21 16:08 16:08 00:20 WBC RBC Hgb Hct MCV 96 H MCH MCHC RDW Plt Count Lymph % (Auto) 8.5 L [place] % (Auto) 15.8 H Lymph # (Auto) 0.9 L [place] # (Auto) 1.7 H Seg Neutrophils % 75.6 H Seg Neuts % (Manual) Lymphocytes % (Manual) Monocytes % (Manual) Seg Neutrophils # 8.0 H Seg Neutrophils # Man Lymphocytes # (Manual) Monocytes # (Manual) PT INR APTT D-Dimer 621.94 H ABG pH POC ABG pCO2 POC ABG pO2 ABG pO2 ABG HCO3 ABG Base Excess ABG Hemoglobin ABG Oxyhemoglobin ABG Sodium ABG Potassium ABG Chloride ABG Glucose Oxyhemoglobin Carboxyhemoglobin Sodium Potassium Chloride Carbon Dioxide BUN Creatinine 0.6 L Glucose 107 H POC Glucose Calcium 8.3 L Phosphorus Ferritin AST 136 H Lactate Dehydrogenase C-Reactive Protein Total Protein 6.2 L Albumin 3.0 L Lipase 7 L Vitamin B12 Arterial Blood Glucose Valproic Acid Coronavirus (PCR) 04/22/21 04/22/21 04/22/21 00:20 00:20 06:51 WBC RBC Hgb Hct MCV 95 H MCH MCHC RDW Plt Count Lymph % (Auto) [place] % (Auto) Lymph # (Auto) [place] # (Auto) Seg Neutrophils % Seg Neuts % (Manual) 91.0 H Lymphocytes % (Manual) 1.0 L Monocytes % (Manual) Seg Neutrophils # Seg Neutrophils # Man Lymphocytes # (Manual) 0.1 L Monocytes # (Manual) PT INR APTT D-Dimer ABG pH POC ABG pCO2 POC ABG pO2 ABG pO2 ABG HCO3 ABG Base Excess ABG Hemoglobin ABG Oxyhemoglobin ABG Sodium ABG Potassium ABG Chloride ABG Glucose Oxyhemoglobin Carboxyhemoglobin Sodium Potassium Chloride Carbon Dioxide BUN Creatinine Glucose POC Glucose Calcium Phosphorus Ferritin 427.3 H AST Lactate Dehydrogenase 379 H C-Reactive Protein 9.20 H Total Protein Albumin Lipase Vitamin B12 Arterial Blood Glucose Valproic Acid Coronavirus (PCR) 04/22/21 04/22/21 04/23/21 06:51 Unknown 09:24 WBC RBC Hgb Hct MCV 96 H MCH MCHC RDW Plt Count Lymph % (Auto) 5.9 L [place] % (Auto) 9.3 H Lymph # (Auto) 0.5 L [place] # (Auto) Seg Neutrophils % 84.8 H Seg Neuts % (Manual) Lymphocytes % (Manual) Monocytes % (Manual) Seg Neutrophils # Seg Neutrophils # Man Lymphocytes # (Manual) Monocytes # (Manual) PT INR APTT D-Dimer ABG pH POC ABG pCO2 POC ABG pO2 ABG pO2 ABG HCO3 ABG Base Excess ABG Hemoglobin ABG Oxyhemoglobin ABG Sodium ABG Potassium ABG Chloride ABG Glucose Oxyhemoglobin Carboxyhemoglobin Sodium Potassium Chloride Carbon Dioxide BUN Creatinine 0.4 L Glucose 114 H POC Glucose Calcium 8.0 L Phosphorus Ferritin AST 116 H Lactate Dehydrogenase C-Reactive Protein Total Protein 5.9 L Albumin 3.0 L Lipase Vitamin B12 Arterial Blood Glucose Valproic Acid Coronavirus (PCR) Positive A 04/23/21 04/23/21 04/24/21 09:24 22:38 07:56 WBC RBC Hgb Hct MCV MCH MCHC RDW Plt Count Lymph % (Auto) [place] % (Auto) Lymph # (Auto) [place] # (Auto) Seg Neutrophils % Seg Neuts % (Manual) Lymphocytes % (Manual) Monocytes % (Manual) Seg Neutrophils # Seg Neutrophils # Man Lymphocytes # (Manual) Monocytes # (Manual) PT INR APTT D-Dimer ABG pH POC ABG pCO2 POC ABG pO2 ABG pO2 ABG HCO3 ABG Base Excess ABG Hemoglobin ABG Oxyhemoglobin ABG Sodium ABG Potassium ABG Chloride ABG Glucose Oxyhemoglobin Carboxyhemoglobin Sodium Potassium 3.5 L Chloride Carbon Dioxide BUN Creatinine 0.5 L Glucose 102 H POC Glucose 111 H Calcium 8.3 L Phosphorus 2.30 L Ferritin AST Lactate Dehydrogenase C-Reactive Protein Total Protein Albumin Lipase Vitamin B12 1039 H Arterial Blood Glucose Valproic Acid Coronavirus (PCR) 04/24/21 04/24/21 04/24/21 07:56 07:56 21:37 WBC RBC Hgb Hct MCV 95 H MCH MCHC RDW Plt Count Lymph % (Auto) [place] % (Auto) Lymph # (Auto) [place] # (Auto) Seg Neutrophils % Seg Neuts % (Manual) 80.0 H Lymphocytes % (Manual) 10.0 L Monocytes % (Manual) 10.0 H Seg Neutrophils # Seg Neutrophils # Man Lymphocytes # (Manual) 0.7 L Monocytes # (Manual) PT INR APTT D-Dimer ABG pH POC ABG pCO2 POC ABG pO2 ABG pO2 ABG HCO3 ABG Base Excess ABG Hemoglobin ABG Oxyhemoglobin ABG Sodium ABG Potassium ABG Chloride ABG Glucose Oxyhemoglobin Carboxyhemoglobin Sodium Potassium Chloride Carbon Dioxide BUN Creatinine 0.4 L Glucose POC Glucose 111 H Calcium Phosphorus Ferritin AST Lactate Dehydrogenase C-Reactive Protein Total Protein Albumin Lipase Vitamin B12 Arterial Blood Glucose Valproic Acid Coronavirus (PCR) 04/25/21 04/25/21 04/25/21 06:24 06:24 23:13 WBC RBC Hgb Hct 46.6 H MCV MCH MCHC RDW Plt Count Lymph % (Auto) [place] % (Auto) Lymph # (Auto) [place] # (Auto) Seg Neutrophils % Seg Neuts % (Manual) 83.0 H Lymphocytes % (Manual) 1.0 L Monocytes % (Manual) 9.0 H Seg Neutrophils # Seg Neutrophils # Man Lymphocytes # (Manual) 0.1 L Monocytes # (Manual) PT INR APTT D-Dimer ABG pH POC ABG pCO2 POC ABG pO2 ABG pO2 ABG HCO3 ABG Base Excess ABG Hemoglobin ABG Oxyhemoglobin ABG Sodium ABG Potassium ABG Chloride ABG Glucose Oxyhemoglobin Carboxyhemoglobin Sodium 136 L 134 L Potassium 3.3 L Chloride Carbon Dioxide 21 L BUN Creatinine 0.3 L 0.4 L Glucose 115 H POC Glucose Calcium 7.7 L Phosphorus Ferritin AST 104 H Lactate Dehydrogenase C-Reactive Protein Total Protein 6.1 L Albumin 2.6 L Lipase Vitamin B12 Arterial Blood Glucose Valproic Acid Coronavirus (PCR) 04/26/21 04/27/21 04/27/21 06:29 06:31 06:31 WBC 17.6 H RBC Hgb Hct MCV MCH MCHC RDW Plt Count Lymph % (Auto) [place] % (Auto) Lymph # (Auto) [place] # (Auto) Seg Neutrophils % Seg Neuts % (Manual) 87.0 H Lymphocytes % (Manual) 5.0 L Monocytes % (Manual) Seg Neutrophils # Seg Neutrophils # Man 15.3 H Lymphocytes # (Manual) 0.9 L Monocytes # (Manual) 0.9 H PT INR APTT D-Dimer ABG pH POC ABG pCO2 POC ABG pO2 ABG pO2 ABG HCO3 ABG Base Excess ABG Hemoglobin ABG Oxyhemoglobin ABG Sodium ABG Potassium ABG Chloride ABG Glucose Oxyhemoglobin Carboxyhemoglobin Sodium Potassium 3.4 L Chloride Carbon Dioxide BUN Creatinine 0.5 L 0.4 L Glucose 112 H 106 H POC Glucose Calcium 8.0 L Phosphorus Ferritin AST 114 H 110 H Lactate Dehydrogenase C-Reactive Protein Total Protein 6.2 L Albumin 2.9 L 2.6 L Lipase Vitamin B12 Arterial Blood Glucose Valproic Acid Coronavirus (PCR) 04/28/21 04/28/21 04/29/21 08:03 08:03 04:00 WBC 19.8 H 14.0 H RBC Hgb Hct MCV 95 H MCH MCHC RDW Plt Count Lymph % (Auto) [place] % (Auto) Lymph # (Auto) [place] # (Auto) Seg Neutrophils % Seg Neuts % (Manual) 94.0 H Lymphocytes % (Manual) 1.0 L Monocytes % (Manual) Seg Neutrophils # Seg Neutrophils # Man 18.6 H Lymphocytes # (Manual) 0.2 L Monocytes # (Manual) PT INR APTT D-Dimer ABG pH POC ABG pCO2 POC ABG pO2 ABG pO2 ABG HCO3 ABG Base Excess ABG Hemoglobin ABG Oxyhemoglobin ABG Sodium ABG Potassium ABG Chloride ABG Glucose Oxyhemoglobin Carboxyhemoglobin Sodium Potassium Chloride Carbon Dioxide BUN Creatinine 0.2 L Glucose 107 H POC Glucose Calcium 8.1 L Phosphorus Ferritin AST 87 H Lactate Dehydrogenase C-Reactive Protein Total Protein 5.1 L Albumin 2.4 L Lipase Vitamin B12 Arterial Blood Glucose Valproic Acid Coronavirus (PCR) 04/29/21 04/30/21 04/30/21 04:00 06:20 06:20 WBC RBC Hgb Hct MCV MCH MCHC RDW Plt Count Lymph % (Auto) [place] % (Auto) Lymph # (Auto) [place] # (Auto) Seg Neutrophils % Seg Neuts % (Manual) Lymphocytes % (Manual) Monocytes % (Manual) Seg Neutrophils # Seg Neutrophils # Man Lymphocytes # (Manual) Monocytes # (Manual) PT INR APTT D-Dimer 690.97 H ABG pH POC ABG pCO2 POC ABG pO2 ABG pO2 ABG HCO3 ABG Base Excess ABG Hemoglobin ABG Oxyhemoglobin ABG Sodium ABG Potassium ABG Chloride ABG Glucose Oxyhemoglobin Carboxyhemoglobin Sodium 148 H Potassium 3.0 L Chloride 110.2 H Carbon Dioxide BUN Creatinine 0.2 L Glucose 130 H POC Glucose Calcium Phosphorus Ferritin 930.1 H AST 63 H Lactate Dehydrogenase C-Reactive Protein Total Protein 5.6 L Albumin 2.4 L Lipase Vitamin B12 Arterial Blood Glucose Valproic Acid Coronavirus (PCR) 04/30/21 04/30/21 04/30/21 06:20 08:01 08:41 WBC RBC Hgb Hct MCV MCH MCHC RDW Plt Count Lymph % (Auto) [place] % (Auto) Lymph # (Auto) [place] # (Auto) Seg Neutrophils % Seg Neuts % (Manual) Lymphocytes % (Manual) Monocytes % (Manual) Seg Neutrophils # Seg Neutrophils # Man Lymphocytes # (Manual) Monocytes # (Manual) PT INR APTT D-Dimer ABG pH POC ABG pCO2 POC ABG pO2 ABG pO2 ABG HCO3 ABG Base Excess ABG Hemoglobin ABG Oxyhemoglobin ABG Sodium ABG Potassium ABG Chloride ABG Glucose Oxyhemoglobin Carboxyhemoglobin Sodium 151 H Potassium 3.3 L Chloride 110.3 H Carbon Dioxide BUN Creatinine 0.3 L Glucose 119 H POC Glucose 119 H Calcium Phosphorus Ferritin AST Lactate Dehydrogenase 423 H C-Reactive Protein 8.90 H Total Protein Albumin Lipase Vitamin B12 Arterial Blood Glucose Valproic Acid Coronavirus (PCR) 04/30/21 05/01/21 05/01/21 11:14 07:29 07:29 WBC 21.4 H RBC Hgb Hct MCV MCH MCHC RDW Plt Count Lymph % (Auto) [place] % (Auto) Lymph # (Auto) [place] # (Auto) Seg Neutrophils % Seg Neuts % (Manual) Lymphocytes % (Manual) Monocytes % (Manual) Seg Neutrophils # Seg Neutrophils # Man Lymphocytes # (Manual) Monocytes # (Manual) PT INR APTT D-Dimer ABG pH POC ABG pCO2 POC ABG pO2 ABG pO2 ABG HCO3 ABG Base Excess ABG Hemoglobin ABG Oxyhemoglobin ABG Sodium ABG Potassium ABG Chloride ABG Glucose Oxyhemoglobin Carboxyhemoglobin Sodium 150 H Potassium 2.7 L* Chloride 111.2 H Carbon Dioxide BUN Creatinine 0.3 L Glucose 162 H POC Glucose 113 H Calcium Phosphorus Ferritin AST Lactate Dehydrogenase C-Reactive Protein Total Protein Albumin Lipase Vitamin B12 Arterial Blood Glucose Valproic Acid Coronavirus (PCR) 05/01/21 05/01/21 05/01/21 07:33 11:28 17:54 WBC RBC Hgb Hct MCV MCH MCHC RDW Plt Count Lymph % (Auto) [place] % (Auto) Lymph # (Auto) [place] # (Auto) Seg Neutrophils % Seg Neuts % (Manual) Lymphocytes % (Manual) Monocytes % (Manual) Seg Neutrophils # Seg Neutrophils # Man Lymphocytes # (Manual) Monocytes # (Manual) PT INR APTT D-Dimer ABG pH POC ABG pCO2 POC ABG pO2 ABG pO2 ABG HCO3 ABG Base Excess ABG Hemoglobin ABG Oxyhemoglobin ABG Sodium ABG Potassium ABG Chloride ABG Glucose Oxyhemoglobin Carboxyhemoglobin Sodium Potassium Chloride Carbon Dioxide BUN Creatinine Glucose POC Glucose 147 H 152 H 165 H Calcium Phosphorus Ferritin AST Lactate Dehydrogenase C-Reactive Protein Total Protein Albumin Lipase Vitamin B12 Arterial Blood Glucose Valproic Acid Coronavirus (PCR) 05/02/21 05/02/21 05/02/21 00:23 05:28 05:28 WBC 18.9 H RBC Hgb Hct MCV 95 H MCH MCHC 31 L RDW Plt Count Lymph % (Auto) [place] % (Auto) Lymph # (Auto) [place] # (Auto) Seg Neutrophils % Seg Neuts % (Manual) Lymphocytes % (Manual) Monocytes % (Manual) Seg Neutrophils # Seg Neutrophils # Man Lymphocytes # (Manual) Monocytes # (Manual) PT INR APTT D-Dimer ABG pH POC ABG pCO2 POC ABG pO2 ABG pO2 ABG HCO3 ABG Base Excess ABG Hemoglobin ABG Oxyhemoglobin ABG Sodium ABG Potassium ABG Chloride ABG Glucose Oxyhemoglobin Carboxyhemoglobin Sodium 151 H Potassium Chloride 111.4 H Carbon Dioxide BUN Creatinine 0.3 L Glucose 132 H POC Glucose 160 H Calcium 8.3 L Phosphorus Ferritin AST Lactate Dehydrogenase C-Reactive Protein Total Protein Albumin Lipase Vitamin B12 Arterial Blood Glucose Valproic Acid Coronavirus (PCR) 05/02/21 05/02/21 05/02/21 07:42 11:31 16:39 WBC RBC Hgb Hct MCV MCH MCHC RDW Plt Count Lymph % (Auto) [place] % (Auto) Lymph # (Auto) [place] # (Auto) Seg Neutrophils % Seg Neuts % (Manual) Lymphocytes % (Manual) Monocytes % (Manual) Seg Neutrophils # Seg Neutrophils # Man Lymphocytes # (Manual) Monocytes # (Manual) PT INR APTT D-Dimer ABG pH POC ABG pCO2 POC ABG pO2 ABG pO2 ABG HCO3 ABG Base Excess ABG Hemoglobin ABG Oxyhemoglobin ABG Sodium ABG Potassium ABG Chloride ABG Glucose Oxyhemoglobin Carboxyhemoglobin Sodium Potassium Chloride Carbon Dioxide BUN Creatinine Glucose POC Glucose 170 H 131 H 140 H Calcium Phosphorus Ferritin AST Lactate Dehydrogenase C-Reactive Protein Total Protein Albumin Lipase Vitamin B12 Arterial Blood Glucose Valproic Acid Coronavirus (PCR) 05/02/21 05/03/21 05/03/21 22:42 06:11 09:20 WBC 16.2 H RBC 3.51 L Hgb 10.5 L Hct 33.1 L MCV MCH MCHC RDW 15.4 H Plt Count Lymph % (Auto) [place] % (Auto) Lymph # (Auto) [place] # (Auto) Seg Neutrophils % Seg Neuts % (Manual) Lymphocytes % (Manual) Monocytes % (Manual) Seg Neutrophils # Seg Neutrophils # Man Lymphocytes # (Manual) Monocytes # (Manual) PT INR APTT D-Dimer ABG pH POC ABG pCO2 POC ABG pO2 ABG pO2 ABG HCO3 ABG Base Excess ABG Hemoglobin ABG Oxyhemoglobin ABG Sodium ABG Potassium ABG Chloride ABG Glucose Oxyhemoglobin Carboxyhemoglobin Sodium Potassium Chloride Carbon Dioxide BUN Creatinine Glucose POC Glucose 107 H 108 H Calcium Phosphorus Ferritin AST Lactate Dehydrogenase C-Reactive Protein Total Protein Albumin Lipase Vitamin B12 Arterial Blood Glucose Valproic Acid Coronavirus (PCR) 05/03/21 05/03/21 05/03/21 09:20 11:01 17:33 WBC RBC Hgb Hct MCV MCH MCHC RDW Plt Count Lymph % (Auto) [place] % (Auto) Lymph # (Auto) [place] # (Auto) Seg Neutrophils % Seg Neuts % (Manual) Lymphocytes % (Manual) Monocytes % (Manual) Seg Neutrophils # Seg Neutrophils # Man Lymphocytes # (Manual) Monocytes # (Manual) PT INR APTT D-Dimer ABG pH POC ABG pCO2 POC ABG pO2 ABG pO2 ABG HCO3 ABG Base Excess ABG Hemoglobin ABG Oxyhemoglobin ABG Sodium ABG Potassium ABG Chloride ABG Glucose Oxyhemoglobin Carboxyhemoglobin Sodium 149 H Potassium 3.5 L Chloride 110.0 H Carbon Dioxide BUN Creatinine 0.3 L Glucose 113 H POC Glucose 146 H 118 H Calcium 8.0 L Phosphorus Ferritin AST Lactate Dehydrogenase C-Reactive Protein Total Protein Albumin Lipase Vitamin B12 Arterial Blood Glucose Valproic Acid Coronavirus (PCR) 05/04/21 05/04/21 05/04/21 05:51 13:28 13:28 WBC RBC Hgb Hct MCV MCH MCHC RDW Plt Count Lymph % (Auto) [place] % (Auto) Lymph # (Auto) [place] # (Auto) Seg Neutrophils % Seg Neuts % (Manual) Lymphocytes % (Manual) Monocytes % (Manual) Seg Neutrophils # Seg Neutrophils # Man Lymphocytes # (Manual) Monocytes # (Manual) PT INR APTT D-Dimer ABG pH POC ABG pCO2 POC ABG pO2 ABG pO2 ABG HCO3 ABG Base Excess ABG Hemoglobin ABG Oxyhemoglobin ABG Sodium ABG Potassium ABG Chloride ABG Glucose Oxyhemoglobin Carboxyhemoglobin Sodium Potassium Chloride Carbon Dioxide BUN Creatinine Glucose POC Glucose 143 H Calcium Phosphorus Ferritin AST Lactate Dehydrogenase C-Reactive Protein 15.40 H Total Protein Albumin Lipase Vitamin B12 Arterial Blood Glucose Valproic Acid 10.9 L Coronavirus (PCR) 05/04/21 05/04/21 05/05/21 17:30 23:53 11:23 WBC RBC Hgb Hct MCV MCH MCHC RDW Plt Count Lymph % (Auto) [place] % (Auto) Lymph # (Auto) [place] # (Auto) Seg Neutrophils % Seg Neuts % (Manual) Lymphocytes % (Manual) Monocytes % (Manual) Seg Neutrophils # Seg Neutrophils # Man Lymphocytes # (Manual) Monocytes # (Manual) PT INR APTT D-Dimer ABG pH POC ABG pCO2 POC ABG pO2 ABG pO2 ABG HCO3 ABG Base Excess ABG Hemoglobin ABG Oxyhemoglobin ABG Sodium ABG Potassium ABG Chloride ABG Glucose Oxyhemoglobin Carboxyhemoglobin Sodium Potassium Chloride Carbon Dioxide BUN Creatinine Glucose POC Glucose 110 H 128 H 121 H Calcium Phosphorus Ferritin AST Lactate Dehydrogenase C-Reactive Protein Total Protein Albumin Lipase Vitamin B12 Arterial Blood Glucose Valproic Acid Coronavirus (PCR) 05/05/21 05/05/21 05/06/21 16:26 21:24 07:02 WBC 11.7 H RBC Hgb Hct MCV 99 H MCH 33 H MCHC RDW 15.5 H Plt Count Lymph % (Auto) [place] % (Auto) Lymph # (Auto) [place] # (Auto) Seg Neutrophils % Seg Neuts % (Manual) 82.0 H Lymphocytes % (Manual) 4.0 L Monocytes % (Manual) Seg Neutrophils # Seg Neutrophils # Man 9.6 H Lymphocytes # (Manual) 0.5 L Monocytes # (Manual) PT INR APTT D-Dimer ABG pH POC ABG pCO2 POC ABG pO2 ABG pO2 ABG HCO3 ABG Base Excess ABG Hemoglobin ABG Oxyhemoglobin ABG Sodium ABG Potassium ABG Chloride ABG Glucose Oxyhemoglobin Carboxyhemoglobin Sodium Potassium Chloride Carbon Dioxide BUN Creatinine Glucose POC Glucose 113 H 130 H Calcium Phosphorus Ferritin AST Lactate Dehydrogenase C-Reactive Protein Total Protein Albumin Lipase Vitamin B12 Arterial Blood Glucose Valproic Acid Coronavirus (PCR) 05/07/21 05/07/21 05/07/21 05:00 07:28 21:34 WBC RBC Hgb Hct MCV MCH MCHC RDW Plt Count Lymph % (Auto) [place] % (Auto) Lymph # (Auto) [place] # (Auto) Seg Neutrophils % Seg Neuts % (Manual) Lymphocytes % (Manual) Monocytes % (Manual) Seg Neutrophils # Seg Neutrophils # Man Lymphocytes # (Manual) Monocytes # (Manual) PT 16.0 H INR 1.16 H APTT 43.8 H D-Dimer ABG pH POC ABG pCO2 POC ABG pO2 ABG pO2 ABG HCO3 ABG Base Excess ABG Hemoglobin ABG Oxyhemoglobin ABG Sodium ABG Potassium ABG Chloride ABG Glucose Oxyhemoglobin Carboxyhemoglobin Sodium Potassium Chloride Carbon Dioxide BUN Creatinine Glucose POC Glucose 112 H 123 H Calcium Phosphorus Ferritin AST Lactate Dehydrogenase C-Reactive Protein Total Protein Albumin Lipase Vitamin B12 Arterial Blood Glucose Valproic Acid Coronavirus (PCR) 05/08/21 05/08/21 05/08/21 08:11 12:04 16:37 WBC RBC Hgb Hct MCV MCH MCHC RDW Plt Count Lymph % (Auto) [place] % (Auto) Lymph # (Auto) [place] # (Auto) Seg Neutrophils % Seg Neuts % (Manual) Lymphocytes % (Manual) Monocytes % (Manual) Seg Neutrophils # Seg Neutrophils # Man Lymphocytes # (Manual) Monocytes # (Manual) PT INR APTT D-Dimer ABG pH POC ABG pCO2 POC ABG pO2 ABG pO2 ABG HCO3 ABG Base Excess ABG Hemoglobin ABG Oxyhemoglobin ABG Sodium ABG Potassium ABG Chloride ABG Glucose Oxyhemoglobin Carboxyhemoglobin Sodium Potassium Chloride Carbon Dioxide BUN Creatinine Glucose POC Glucose 158 H 117 H 118 H Calcium Phosphorus Ferritin AST Lactate Dehydrogenase C-Reactive Protein Total Protein Albumin Lipase Vitamin B12 Arterial Blood Glucose Valproic Acid Coronavirus (PCR) 05/09/21 05/09/21 05/09/21 04:56 12:04 17:14 WBC RBC Hgb Hct MCV MCH MCHC RDW Plt Count Lymph % (Auto) [place] % (Auto) Lymph # (Auto) [place] # (Auto) Seg Neutrophils % Seg Neuts % (Manual) Lymphocytes % (Manual) Monocytes % (Manual) Seg Neutrophils # Seg Neutrophils # Man Lymphocytes # (Manual) Monocytes # (Manual) PT INR APTT D-Dimer ABG pH POC ABG pCO2 POC ABG pO2 ABG pO2 ABG HCO3 ABG Base Excess ABG Hemoglobin ABG Oxyhemoglobin ABG Sodium ABG Potassium ABG Chloride ABG Glucose Oxyhemoglobin Carboxyhemoglobin Sodium Potassium Chloride Carbon Dioxide BUN Creatinine Glucose POC Glucose 113 H 107 H 163 H Calcium Phosphorus Ferritin AST Lactate Dehydrogenase C-Reactive Protein Total Protein Albumin Lipase Vitamin B12 Arterial Blood Glucose Valproic Acid Coronavirus (PCR) 05/09/21 05/09/21 05/10/21 21:02 Unknown 12:00 WBC RBC Hgb Hct MCV MCH MCHC RDW Plt Count Lymph % (Auto) [place] % (Auto) Lymph # (Auto) [place] # (Auto) Seg Neutrophils % Seg Neuts % (Manual) Lymphocytes % (Manual) Monocytes % (Manual) Seg Neutrophils # Seg Neutrophils # Man Lymphocytes # (Manual) Monocytes # (Manual) PT INR APTT D-Dimer ABG pH POC ABG pCO2 POC ABG pO2 ABG pO2 ABG HCO3 ABG Base Excess ABG Hemoglobin ABG Oxyhemoglobin ABG Sodium ABG Potassium ABG Chloride ABG Glucose Oxyhemoglobin Carboxyhemoglobin Sodium Potassium Chloride Carbon Dioxide BUN Creatinine Glucose POC Glucose 139 H 132 H Calcium Phosphorus Ferritin AST Lactate Dehydrogenase C-Reactive Protein Total Protein Albumin Lipase Vitamin B12 Arterial Blood Glucose Valproic Acid Coronavirus (PCR) Positive A 05/10/21 05/10/21 05/11/21 17:36 20:37 01:46 WBC RBC Hgb Hct MCV MCH MCHC RDW Plt Count Lymph % (Auto) [place] % (Auto) Lymph # (Auto) [place] # (Auto) Seg Neutrophils % Seg Neuts % (Manual) Lymphocytes % (Manual) Monocytes % (Manual) Seg Neutrophils # Seg Neutrophils # Man Lymphocytes # (Manual) Monocytes # (Manual) PT INR APTT D-Dimer ABG pH POC ABG pCO2 POC ABG pO2 ABG pO2 ABG HCO3 ABG Base Excess ABG Hemoglobin ABG Oxyhemoglobin ABG Sodium ABG Potassium ABG Chloride ABG Glucose Oxyhemoglobin Carboxyhemoglobin Sodium Potassium Chloride Carbon Dioxide BUN Creatinine Glucose POC Glucose 120 H 125 H 118 H Calcium Phosphorus Ferritin AST Lactate Dehydrogenase C-Reactive Protein Total Protein Albumin Lipase Vitamin B12 Arterial Blood Glucose Valproic Acid Coronavirus (PCR) 05/11/21 05/11/21 05/11/21 02:30 02:30 03:20 WBC 12.3 H RBC 3.22 L Hgb 9.6 L Hct 33.3 L MCV 103 H MCH MCHC 29 L RDW 16.6 H Plt Count Lymph % (Auto) 4.9 L [place] % (Auto) 10.6 H Lymph # (Auto) 0.6 L [place] # (Auto) 1.3 H Seg Neutrophils % 84.0 H Seg Neuts % (Manual) Lymphocytes % (Manual) Monocytes % (Manual) Seg Neutrophils # 10.4 H Seg Neutrophils # Man Lymphocytes # (Manual) Monocytes # (Manual) PT INR APTT D-Dimer ABG pH 7.083 L POC ABG pCO2 129.5 H POC ABG pO2 139.1 H ABG pO2 ABG HCO3 ABG Base Excess ABG Hemoglobin 10.6 L ABG Oxyhemoglobin 98.4 H ABG Sodium 154.5 H ABG Potassium 5.4 H ABG Chloride 114.0 H ABG Glucose 128 H Oxyhemoglobin Carboxyhemoglobin 0.3 L Sodium 159 H Potassium 6.6 H* Chloride 116.6 H Carbon Dioxide 35 H BUN 41 H Creatinine Glucose 139 H POC Glucose Calcium 8.2 L Phosphorus Ferritin AST Lactate Dehydrogenase C-Reactive Protein Total Protein Albumin Lipase Vitamin B12 Arterial Blood Glucose 128 H Valproic Acid Coronavirus (PCR) 05/11/21 05/11/21 05/11/21 05:45 10:30 11:30 WBC RBC Hgb Hct MCV MCH MCHC RDW Plt Count Lymph % (Auto) [place] % (Auto) Lymph # (Auto) [place] # (Auto) Seg Neutrophils % Seg Neuts % (Manual) Lymphocytes % (Manual) Monocytes % (Manual) Seg Neutrophils # Seg Neutrophils # Man Lymphocytes # (Manual) Monocytes # (Manual) PT INR APTT D-Dimer ABG pH POC ABG pCO2 POC ABG pO2 ABG pO2 ABG HCO3 ABG Base Excess ABG Hemoglobin ABG Oxyhemoglobin ABG Sodium ABG Potassium ABG Chloride ABG Glucose Oxyhemoglobin Carboxyhemoglobin Sodium 161 H* Potassium Chloride 117.5 H Carbon Dioxide 37 H BUN 40 H Creatinine 0.7 L Glucose 155 H POC Glucose 112 H 141 H Calcium Phosphorus 2.10 L Ferritin AST Lactate Dehydrogenase C-Reactive Protein Total Protein Albumin Lipase Vitamin B12 Arterial Blood Glucose Valproic Acid Coronavirus (PCR) 05/11/21 05/11/21 05/11/21 15:59 16:40 23:21 WBC RBC Hgb Hct MCV MCH MCHC RDW Plt Count Lymph % (Auto) [place] % (Auto) Lymph # (Auto) [place] # (Auto) Seg Neutrophils % Seg Neuts % (Manual) Lymphocytes % (Manual) Monocytes % (Manual) Seg Neutrophils # Seg Neutrophils # Man Lymphocytes # (Manual) Monocytes # (Manual) PT INR APTT D-Dimer ABG pH POC ABG pCO2 POC ABG pO2 ABG pO2 ABG HCO3 ABG Base Excess ABG Hemoglobin ABG Oxyhemoglobin ABG Sodium ABG Potassium ABG Chloride ABG Glucose Oxyhemoglobin Carboxyhemoglobin Sodium 159 H Potassium Chloride 115.4 H Carbon Dioxide 35 H BUN 44 H Creatinine Glucose 177 H POC Glucose 151 H 184 H Calcium Phosphorus Ferritin AST Lactate Dehydrogenase C-Reactive Protein Total Protein Albumin Lipase Vitamin B12 Arterial Blood Glucose Valproic Acid Coronavirus (PCR) 05/12/21 05/12/21 05/12/21 05:15 05:27 05:56 WBC 11.6 H RBC 3.13 L Hgb 9.4 L Hct 30.9 L MCV 99 H MCH MCHC 30 L RDW 16.0 H Plt Count Lymph % (Auto) [place] % (Auto) Lymph # (Auto) [place] # (Auto) Seg Neutrophils % Seg Neuts % (Manual) Lymphocytes % (Manual) Monocytes % (Manual) Seg Neutrophils # Seg Neutrophils # Man Lymphocytes # (Manual) Monocytes # (Manual) PT INR APTT D-Dimer ABG pH POC ABG pCO2 POC ABG pO2 ABG pO2 107.6 H ABG HCO3 36.8 H ABG Base Excess 9.3 H ABG Hemoglobin 11.2 L ABG Oxyhemoglobin ABG Sodium ABG Potassium ABG Chloride ABG Glucose Oxyhemoglobin Carboxyhemoglobin Sodium Potassium Chloride Carbon Dioxide BUN Creatinine Glucose POC Glucose 163 H Calcium Phosphorus Ferritin AST Lactate Dehydrogenase C-Reactive Protein Total Protein Albumin Lipase Vitamin B12 Arterial Blood Glucose Valproic Acid Coronavirus (PCR) 05/12/21 05/12/21 05/12/21 05:56 11:57 18:07 WBC RBC Hgb Hct MCV MCH MCHC RDW Plt Count Lymph % (Auto) [place] % (Auto) Lymph # (Auto) [place] # (Auto) Seg Neutrophils % Seg Neuts % (Manual) Lymphocytes % (Manual) Monocytes % (Manual) Seg Neutrophils # Seg Neutrophils # Man Lymphocytes # (Manual) Monocytes # (Manual) PT INR APTT D-Dimer ABG pH POC ABG pCO2 POC ABG pO2 ABG pO2 ABG HCO3 ABG Base Excess ABG Hemoglobin ABG Oxyhemoglobin ABG Sodium ABG Potassium ABG Chloride ABG Glucose Oxyhemoglobin Carboxyhemoglobin Sodium 154 H Potassium Chloride 111.4 H Carbon Dioxide 34 H BUN 41 H Creatinine 0.5 L Glucose 185 H POC Glucose 137 H 133 H Calcium Phosphorus 2.40 L Ferritin AST Lactate Dehydrogenase C-Reactive Protein Total Protein Albumin Lipase Vitamin B12 Arterial Blood Glucose Valproic Acid Coronavirus (PCR) 05/13/21 05/13/21 05/13/21 04:37 05:53 05:53 WBC 16.4 H RBC 3.12 L Hgb 9.3 L Hct 29.5 L MCV 95 H MCH MCHC RDW Plt Count 126 L Lymph % (Auto) [place] % (Auto) Lymph # (Auto) [place] # (Auto) Seg Neutrophils % Seg Neuts % (Manual) Lymphocytes % (Manual) Monocytes % (Manual) Seg Neutrophils # Seg Neutrophils # Man Lymphocytes # (Manual) Monocytes # (Manual) PT INR APTT D-Dimer ABG pH 7.490 H POC ABG pCO2 POC ABG pO2 ABG pO2 70.2 L ABG HCO3 36.8 H ABG Base Excess 12.0 H ABG Hemoglobin 9.9 L ABG Oxyhemoglobin ABG Sodium ABG Potassium ABG Chloride ABG Glucose Oxyhemoglobin 94.7 L Carboxyhemoglobin Sodium 151 H Potassium Chloride Carbon Dioxide 33 H BUN 26 H Creatinine 0.3 L Glucose POC Glucose Calcium 8.1 L Phosphorus Ferritin AST Lactate Dehydrogenase C-Reactive Protein Total Protein Albumin Lipase Vitamin B12 Arterial Blood Glucose Valproic Acid Coronavirus (PCR) 05/13/21 05/14/21 05/14/21 17:01 00:20 04:02 WBC 13.0 H RBC 3.12 L Hgb 9.3 L Hct 29.4 L MCV MCH MCHC RDW Plt Count 130 L Lymph % (Auto) [place] % (Auto) Lymph # (Auto) [place] # (Auto) Seg Neutrophils % Seg Neuts % (Manual) Lymphocytes % (Manual) Monocytes % (Manual) Seg Neutrophils # Seg Neutrophils # Man Lymphocytes # (Manual) Monocytes # (Manual) PT INR APTT D-Dimer ABG pH POC ABG pCO2 POC ABG pO2 ABG pO2 ABG HCO3 ABG Base Excess ABG Hemoglobin ABG Oxyhemoglobin ABG Sodium ABG Potassium ABG Chloride ABG Glucose Oxyhemoglobin Carboxyhemoglobin Sodium Potassium Chloride Carbon Dioxide BUN Creatinine Glucose POC Glucose 120 H 134 H Calcium Phosphorus Ferritin AST Lactate Dehydrogenase C-Reactive Protein Total Protein Albumin Lipase Vitamin B12 Arterial Blood Glucose Valproic Acid Coronavirus (PCR) 05/14/21 05/14/21 05/14/21 04:02 05:07 11:35 WBC RBC Hgb Hct MCV MCH MCHC RDW Plt Count Lymph % (Auto) [place] % (Auto) Lymph # (Auto) [place] # (Auto) Seg Neutrophils % Seg Neuts % (Manual) Lymphocytes % (Manual) Monocytes % (Manual) Seg Neutrophils # Seg Neutrophils # Man Lymphocytes # (Manual) Monocytes # (Manual) PT INR APTT D-Dimer ABG pH POC ABG pCO2 POC ABG pO2 ABG pO2 ABG HCO3 ABG Base Excess ABG Hemoglobin ABG Oxyhemoglobin ABG Sodium ABG Potassium ABG Chloride ABG Glucose Oxyhemoglobin Carboxyhemoglobin Sodium 146 H Potassium 3.1 L D Chloride Carbon Dioxide 33 H BUN Creatinine 0.2 L Glucose 132 H POC Glucose 132 H 106 H Calcium Phosphorus 2.30 L Ferritin AST Lactate Dehydrogenase C-Reactive Protein Total Protein Albumin Lipase Vitamin B12 Arterial Blood Glucose Valproic Acid Coronavirus (PCR) 05/14/21 05/14/21 05/15/21 17:58 23:09 04:05 WBC RBC Hgb Hct MCV MCH MCHC RDW Plt Count Lymph % (Auto) [place] % (Auto) Lymph # (Auto) [place] # (Auto) Seg Neutrophils % Seg Neuts % (Manual) Lymphocytes % (Manual) Monocytes % (Manual) Seg Neutrophils # Seg Neutrophils # Man Lymphocytes # (Manual) Monocytes # (Manual) PT INR APTT D-Dimer ABG pH 7.500 H POC ABG pCO2 POC ABG pO2 ABG pO2 66.1 L ABG HCO3 35.1 H ABG Base Excess 10.8 H ABG Hemoglobin 9.1 L ABG Oxyhemoglobin ABG Sodium ABG Potassium ABG Chloride ABG Glucose Oxyhemoglobin 93.4 L Carboxyhemoglobin Sodium Potassium Chloride Carbon Dioxide BUN Creatinine Glucose POC Glucose 134 H 133 H Calcium Phosphorus Ferritin AST Lactate Dehydrogenase C-Reactive Protein Total Protein Albumin Lipase Vitamin B12 Arterial Blood Glucose Valproic Acid Coronavirus (PCR) 05/15/21 05/15/21 05:00 05:00 WBC 19.4 H RBC 3.07 L Hgb 9.3 L Hct 28.7 L MCV MCH MCHC RDW Plt Count 104 L Lymph % (Auto) [place] % (Auto) Lymph # (Auto) [place] # (Auto) Seg Neutrophils % Seg Neuts % (Manual) Lymphocytes % (Manual) Monocytes % (Manual) Seg Neutrophils # Seg Neutrophils # Man Lymphocytes # (Manual) Monocytes # (Manual) PT INR APTT D-Dimer ABG pH POC ABG pCO2 POC ABG pO2 ABG pO2 ABG HCO3 ABG Base Excess ABG Hemoglobin ABG Oxyhemoglobin ABG Sodium ABG Potassium ABG Chloride ABG Glucose Oxyhemoglobin Carboxyhemoglobin Sodium 147 H Potassium Chloride Carbon Dioxide 33 H BUN Creatinine 0.2 L Glucose 131 H POC Glucose Calcium Phosphorus Ferritin AST Lactate Dehydrogenase C-Reactive Protein Total Protein Albumin Lipase Vitamin B12 Arterial Blood Glucose Valproic Acid Coronavirus (PCR)
--- NOTE | 2021-05-15 12:47 | Progress Note ---
Assessment and Plan Assessment and plan: This is a 66-year old with unknown past medical history who resides in a personal usp initially admitted for acute metabolic encephalopathy and COVID pneumonia. Patient decompensated on 05/11 requiring intubation and ventilatory support. Hospital Course to Date: 05/06/2021; patient scheduled for PEG tomorrow N.p.o. status, mild to moderate risk for the procedure No medical contraindication for PEG placement. 05/07/2021; patient scheduled for PEG today Case management working on LTAC versus SNF placement 05/08/2021; status post PEG placement yesterday Start tube feeds per protocol, continuous high flow nasal cannula oxygen 40 L Unable to wean, very poor prognosis, pulmonary following, pending LTAC evaluation 05/09/2021; continue high flow nasal cannula oxygen 35 L. Wean as tolerated Case management considering hospice, discussed with herrera of the state yesterday Will follow-up with their plan 05/10/2021; mild hypotension, due to poor nutrition due to risk of aspiration nurse gives only intermittent tube feeding Resume tube feeding with aspiration precautions head end of the bed 45 degrees, reduce the flow rate to 20 to 30 mL intermittently And fluid bolus to 50 mL normal saline intermittently as needed. Patient is critically ill with poor prognosis 05/11: Intubated overnight for airway protection. S/p bronchoscopy this am due to mucus plus and complete white out of the left lung. Repeat CXR with mild improvement. D/W CCM pending on guardian's decision on code status, patient might to be bronched again if remains a full code. Patient remains on high dose pressors, will hold TF for now, continue IVF. Continue to monitor electrolytes, repeat labs ordered 05/12: Patient aeration improved post bronch. Remains on 2 pressors, patient afebrile with no leukocytosis. Will try fluid bolus challenge in attempt to wean off pressors. D/w CCM plan for tracheotomy, surgery consulted. 05/13: Patient tolerated fluid challenge, down to only 4mcg of Levo this am, additional 1L bolus today. Plan to wean off pressors. Continue FWF for the hypernatremia. Gen surgery consulted for possible trach. 05/14: Pressor requirement increased this am, stress does steroids added and 1L IVF bolus given.Electrolytes repleted, repeat labs in the am. Possible Trach tomorrow, awaiting approval from legal guardian and the state, case management to follow up. 05/15: Remains on low dose pressors, continue to wean as tolerated. Plan for possible trach today surgery. Per case management if patient is trach today, possible transfer to LTAC in the am. Continue supportive care Assessment and Plan #Acute Metabolic Encephalopathy - Patient remains unresponsive, not on any sedation - CT head with no acute abnormalities - Neurology on consulted - Avoid benzodiazepine to reduce the possibility of delirium - PRN analgesia for CPOT greater than 3 - Patient is a [facility], contact is Arabella Twila to discuss clinical updates/consent for procedures ([phone]) #Hypotension #Tachycardia - Remains bordeline hypotensive, St on the monitor - on low dose pressors today - Stress dose steroids added - plan to wean off pressors - Maintain adequate perfusion - Continue blood pressure monitor per protocol - Maintain MAP above 65 #Acute Hypoxic Respiratory Failure #COVID Pneumonia #LL Mucus Plug - Presented with hypoxia requiring HHFL - Imagings with bilateral pneumonia and mucous plug - S/p aggressive chest PT - COVID Swab positive - on 05/11 Decompensated was intubated, CXR with complete white out of left lung - Vent setting: A/C-30%,6,24,450 - This am ABG noted - CCM consulted, appreciate recommendations - 05/11 s/p Bronchoscopy at the bedside - Post Bronch CXR with improved aeration - Continue Nebs per CCM - VAP bundle addressed - Aspiration precaution HOB above 30 - Daily ABG and CXR - Continue SPO2 monitoring for SPO2 goal above 92% #GI:Dysphagia #Severe Protein Calorie Malnutrition - Presented with a BMI 20.3; albumin 2.4 - 05/07 s/p PEG placement by GI - Nutrition on consult - NPO AMN for possible procedure - Continue PPI and BR - GI signed off #Hypernatremia #Hypokalemia - Electrolytes repleted - Continue FWF - Strict intake and output - Monitor and replace electrolytes as needed - Trend BMP #COVID Pneumonia #Leukocytosis - COVID swab positive - Blood culture and urine culture are negative - Sputum culture NGTD - Completed IV Remdesevir course - Patient remains afebrile - Richi in WBCs most likely due to IV steroids, will continue to monitor - Daily CBC monitor #Endo: Glycemic Control - Continue BG check Q6hrs - No SSI at this time - Continue IVF - Avoid hypoglycemia #DVT prophylaxis - Continue AC- Lovenox SubQ - SCDs to bilateral lower extremities while in bed The high probability of a clinically significant, sudden or life threatening deterioration of the [multiple] system(s) required my full and direct attention, intervention and personal management. The aggregate critical care time was [40] minutes. This time is in addition to time spent performing reported procedures but includes the following: [x] Data Review and interpretation [x] Patient assessment and monitoring of vital signs [x] Documentation [x] Medication orders and management Disposition Plan: ICU Total Time Spent with Patient (Minutes): 40 History Interval history: Patient seen and examined at the bedside. Intubated and unresponsive, not on any sedation. Remains on low dose pressors. ANIYA overnight Hospitalist Physical - Constitutional Vitals: Temp Pulse Resp BP Pulse Ox 97.9 F 101 H 27 H 80/59 96 05/15/21 12:03 05/15/21 11:15 05/15/21 11:15 05/15/21 11:15 05/15/21 11:15 General appearance: Present: no acute distress, cachectic, other (On the vent) - EENT Eyes: Present: PERRL - Respiratory Respiratory effort: normal Respiratory: bilateral: rhonchi - Cardiovascular Rhythm: regular Heart Sounds: Present: S1 & S2 - Extremities Extremities: abnormal Peripheral Pulses: within normal limits - Abdominal General gastrointestinal: soft, non-distended, normal bowel sounds - Integumentary Integumentary: Present: warm, dry - Psychiatric Psychiatric: other (On the vent) - Neurologic Neurologic: other (On the vent) - Allied Health Allied health notes reviewed: nursing HEART Score - HEART Score Age: 45-65 Risk factors: 1-2 risk factors - Critical Actions Critical Actions: 0-3 pts:0.9-1.7%risk of adverse cardiac event.Candidate for discharge Results - Labs CBC & Chem 7: 05/15/21 05:00 05/15/21 05:00 Labs: Laboratory Last Values WBC 19.4 K/mm3 (4.5-11.0) H 05/15/21 05:00 RBC 3.07 M/mm3 (3.65-5.03) L 05/15/21 05:00 Hgb 9.3 gm/dl (11.8-15.2) L 05/15/21 05:00 Hct 28.7 % (35.5-45.6) L 05/15/21 05:00 MCV 94 fl (84-94) 05/15/21 05:00 MCH 30 pg (28-32) 05/15/21 05:00 MCHC 32 % (32-34) 05/15/21 05:00 RDW 14.8 % (13.2-15.2) 05/15/21 05:00 Plt Count 104 K/mm3 (140-440) L 05/15/21 05:00 Lymph % (Auto) 4.9 % (13.4-35.0) L 05/11/21 02:30 Frio % (Auto) 10.6 % (0.0-7.3) H 05/11/21 02:30 Eos % (Auto) 0.0 % (0.0-4.3) 05/11/21 02:30 Baso % (Auto) 0.5 % (0.0-1.8) 05/11/21 02:30 Lymph # (Auto) 0.6 K/mm3 (1.2-5.4) L 05/11/21 02:30 Frio # (Auto) 1.3 K/mm3 (0.0-0.8) H 05/11/21 02:30 Eos # (Auto) 0.0 K/mm3 (0.0-0.4) 05/11/21 02:30 Baso # (Auto) 0.1 K/mm3 (0.0-0.1) 05/11/21 02:30 Add Manual Diff Complete 05/06/21 07:02 Total Counted 100 05/06/21 07:02 Seg Neutrophils % 84.0 % (40.0-70.0) H 05/11/21 02:30 Seg Neuts % (Manual) 82.0 % (40.0-70.0) H 05/06/21 07:02 Band Neutrophils % 9.0 % 05/06/21 07:02 Lymphocytes % (Manual) 4.0 % (13.4-35.0) L 05/06/21 07:02 Reactive Lymphs % (Man) 0 % 05/06/21 07:02 Monocytes % (Manual) 5.0 % (0.0-7.3) 05/06/21 07:02 Eosinophils % (Manual) 0 % (0.0-4.3) 05/06/21 07:02 Basophils % (Manual) 0 % (0.0-1.8) 05/06/21 07:02 Metamyelocytes % 0 % 05/06/21 07:02 Myelocytes % 0 % 05/06/21 07:02 Promyelocytes % 0 % 05/06/21 07:02 Blast Cells % 0 % 05/06/21 07:02 Nucleated RBC % Not Reportable 05/06/21 07:02 Seg Neutrophils # 10.4 K/mm3 (1.8-7.7) H 05/11/21 02:30 Seg Neutrophils # Man 9.6 K/mm3 (1.8-7.7) H 05/06/21 07:02 Band Neutrophils # 1.1 K/mm3 05/06/21 07:02 Lymphocytes # (Manual) 0.5 K/mm3 (1.2-5.4) L 05/06/21 07:02 Abs React Lymphs (Man) 0.0 K/mm3 05/06/21 07:02 Monocytes # (Manual) 0.6 K/mm3 (0.0-0.8) 05/06/21 07:02 Eosinophils # (Manual) 0.0 K/mm3 (0.0-0.4) 05/06/21 07:02 Basophils # (Manual) 0.0 K/mm3 (0.0-0.1) 05/06/21 07:02 Metamyelocytes # 0.0 K/mm3 05/06/21 07:02 Myelocytes # 0.0 K/mm3 05/06/21 07:02 Promyelocytes # 0.0 K/mm3 05/06/21 07:02 Blast Cells # 0.0 K/mm3 05/06/21 07:02 WBC Morphology Not Reportable 05/06/21 07:02 Hypersegmented Neuts Not Reportable 05/06/21 07:02 Hyposegmented Neuts Not Reportable 05/06/21 07:02 Hypogranular Neuts Not Reportable 05/06/21 07:02 Smudge Cells Not Reportable 05/06/21 07:02 Toxic Granulation Not Reportable 05/06/21 07:02 Toxic Vacuolation Not Reportable 05/06/21 07:02 Dohle Bodies Not Reportable 05/06/21 07:02 Pelger-Huet Anomaly Not Reportable 05/06/21 07:02 Jeannette Rods Not Reportable 05/06/21 07:02 Platelet Estimate Consistent w auto 05/06/21 07:02 Clumped Platelets Not Reportable 05/06/21 07:02 Plt Clumps, EDTA Not Reportable 05/06/21 07:02 Large Platelets Not Reportable 05/06/21 07:02 Giant Platelets Not Reportable 05/06/21 07:02 Platelet Satelliting Not Reportable 05/06/21 07:02 Plt Morphology Comment Not Reportable 05/06/21 07:02 RBC Morphology Normal 05/06/21 07:02 Dimorphic RBCs Not Reportable 05/06/21 07:02 Polychromasia Not Reportable 05/06/21 07:02 Hypochromasia Not Reportable 05/06/21 07:02 Poikilocytosis Not Reportable 05/06/21 07:02 Anisocytosis Not Reportable 05/06/21 07:02 Microcytosis Not Reportable 05/06/21 07:02 Macrocytosis Not Reportable 05/06/21 07:02 Spherocytes Not Reportable 05/06/21 07:02 Pappenheimer Bodies Not Reportable 05/06/21 07:02 Sickle Cells Not Reportable 05/06/21 07:02 Target Cells Not Reportable 05/06/21 07:02 Tear Drop Cells Not Reportable 05/06/21 07:02 Ovalocytes Not Reportable 05/06/21 07:02 Helmet Cells Not Reportable 05/06/21 07:02 William-Oberlin Bodies Not Reportable 05/06/21 07:02 [place] Rings Not Reportable 05/06/21 07:02 Canelo Cells Not Reportable 05/06/21 07:02 Bite Cells Not Reportable 05/06/21 07:02 Crenated Cell Not Reportable 05/06/21 07:02 Elliptocytes Not Reportable 05/06/21 07:02 Acanthocytes (Spur) Not Reportable 05/06/21 07:02 Rouleaux Not Reportable 05/06/21 07:02 Hemoglobin C Crystals Not Reportable 05/06/21 07:02 Schistocytes Not Reportable 05/06/21 07:02 Malaria parasites Not Reportable 05/06/21 07:02 ESR 60 mm/Hr (0-20) 05/04/21 13:28 Steve Bodies Not Reportable 05/06/21 07:02 Hem Pathologist Commnt No 05/06/21 07:02 PT 14.6 Sec. (12.2-14.9) 05/15/21 05:00 INR 1.03 (0.87-1.13) 05/15/21 05:00 APTT 43.8 Sec. (24.2-36.6) H 05/07/21 07:28 D-Dimer 690.97 ng/mlDDU (0-234) H 04/30/21 06:20 ABG pH 7.500 pH Units (7.350-7.450) H 05/15/21 04:05 POC ABG pCO2 129.5 mmHg (32.0-48.0) H 05/11/21 03:20 ABG pCO2 46.1 mm Hg 05/15/21 04:05 POC ABG pO2 139.1 mmHg (83-108) H 05/11/21 03:20 ABG pO2 66.1 mm Hg (80.0-90.0) L 05/15/21 04:05 POC ABG HCO3 37.8 05/11/21 03:20 ABG HCO3 35.1 mmol/L (20.0-26.0) H 05/15/21 04:05 ABG O2 Saturation 95.2 % (95.0-99.0) 05/15/21 04:05 ABG O2 Content 12.0 (0.0-44) 05/15/21 04:05 POC ABG Base Excess 4.9 05/11/21 03:20 ABG Base Excess 10.8 mmol/L (-2.0-3.0) H 05/15/21 04:05 ABG Hemoglobin 9.1 gm/dl (14.0-18.0) L 05/15/21 04:05 ABG Oxyhemoglobin 98.4 (94-98) H 05/11/21 03:20 ABG Carboxyhemoglobin 1.4 % (0.0-5.0) 05/15/21 04:05 ABG Methemoglobin 0.5 % (0.0-1.5) 05/15/21 04:05 ABG Sodium 154.5 mmol/L (136.0-145.0) H 05/11/21 03:20 ABG Potassium 5.4 mmol/L (3.40-4.50) H 05/11/21 03:20 ABG Chloride 114.0 mmol/L (98-107) H 05/11/21 03:20 ABG Glucose 128 mg/dL (65-95) H 05/11/21 03:20 Oxyhemoglobin 93.4 % (95.0-99.0) L 05/15/21 04:05 Carboxyhemoglobin 0.3 (0.5-1.5) L 05/11/21 03:20 FiO2 30 % 05/15/21 04:05 FiO2 % 100.0 05/11/21 03:20 Sodium 147 mmol/L (137-145) H 05/15/21 05:00 Potassium 3.7 mmol/L (3.6-5.0) 05/15/21 05:00 Chloride 105.9 mmol/L (98-107) 05/15/21 05:00 Carbon Dioxide 33 mmol/L (22-30) H 05/15/21 05:00 Anion Gap 12 mmol/L 05/15/21 05:00 BUN 16 mg/dL (9-20) 05/15/21 05:00 Creatinine 0.2 mg/dL (0.8-1.3) L 05/15/21 05:00 Estimated GFR > 60 ml/min 05/15/21 05:00 BUN/Creatinine Ratio 80 % 05/15/21 05:00 Glucose 131 mg/dL (75-100) H 05/15/21 05:00 POC Glucose 130 mg/dL (70-105) H 05/15/21 11:37 Lactic Acid 1.20 mmol/L (0.7-2.0) 04/21/21 20:26 Calcium 8.5 mg/dL (8.4-10.2) 05/15/21 05:00 Phosphorus 3.40 mg/dL (2.5-4.5) D 05/15/21 05:00 Magnesium 1.90 mg/dL (1.7-2.3) 05/15/21 05:00 Ferritin 930.1 ng/mL (30.0-300.0) H 04/30/21 06:20 Total Bilirubin 0.70 mg/dL (0.1-1.2) 04/29/21 04:00 AST 63 units/L (5-40) H 04/29/21 04:00 ALT 37 units/L (7-56) 04/29/21 04:00 Alkaline Phosphatase 58 units/L (35-129) 04/29/21 04:00 Lactate Dehydrogenase 423 units/L (91-180) H 04/30/21 06:20 C-Reactive Protein 15.40 mg/dL (0.00-1.30) H 05/04/21 13:28 Total Protein 5.6 g/dL (6.3-8.2) L 04/29/21 04:00 Albumin 2.4 g/dL (3.9-5) L 04/29/21 04:00 Albumin/Globulin Ratio 0.8 % 04/29/21 04:00 Lipase 7 units/L (13-60) L 04/21/21 16:08 Vitamin B12 1039 pg/mL (211-911) H 04/24/21 07:56 Procalcitonin 0.92 ng/mL (<0.15) 05/05/21 09:30 TSH 1.330 mlU/mL (0.270-4.200) 04/24/21 07:56 Free T4 1.03 ng/dL (0.76-1.46) 04/24/21 07:56 Arterial Blood Glucose 128 mg/dL (65-95) H 05/11/21 03:20 Arterial Blood Ionized Calcium 4.7 mg/dL (4.6-5.3) 05/11/21 03:20 Urine Color Leticia (Yellow) 04/21/21 Unknown Urine Turbidity Clear (Clear) 04/21/21 Unknown Urine pH 5.0 (5.0-7.0) 04/21/21 Unknown Ur Specific [place] 1.027 (1.003-1.030) 04/21/21 Unknown Urine Protein 100 mg/dl mg/dL (Negative) 04/21/21 Unknown Urine Glucose (UA) Neg mg/dL (Negative) 04/21/21 Unknown Urine Ketones 20 mg/dL (Negative) 04/21/21 Unknown Urine Blood Mod (Negative) 04/21/21 Unknown Urine Nitrite Neg (Negative) 04/21/21 Unknown Urine Bilirubin Neg (Negative) 04/21/21 Unknown Urine Urobilinogen 4.0 mg/dL (<2.0) 04/21/21 Unknown Ur Leukocyte Esterase Neg (Negative) 04/21/21 Unknown Urine WBC (Auto) < 1.0 /HPF (0.0-6.0) 04/21/21 Unknown Urine RBC (Auto) < 1.0 /HPF (0.0-6.0) 04/21/21 Unknown Urine Mucus Few /HPF 04/21/21 Unknown Valproic Acid 10.9 ug/mL (50-100) L 05/04/21 13:28 Coronavirus (PCR) Positive (Negative) A 05/09/21 Unknown [place]/IV: Voiding Method Indwelling Catheter Active Medications - Current Medications Current Medications: Generic Name Dose Route Start Last Admin Trade Name Freq PRN Reason Stop Dose Admin Acetaminophen 650 mg 04/21/21 22:31 05/14/21 07:28 Acetaminophen 325 Mg Tab PO 650 mg Q4H PRN Administration Pain MILD(1-3)/Fever >100.5/RAY Albuterol 2.5 mg 05/09/21 12:00 Albuterol 2.5 Mg/3 Ml Nebu IH Q4HRT PRN Shortness Of Breath Lipase/Protease/Amylase 1 each 05/07/21 13:04 Lipase 10,500/Protease 25,000/Amylase 43,750 (Units) Dr Espinoza FEEDTUBE PRN PRN For Clogged Feeding Tube Enoxaparin Sodium 40 mg 05/11/21 22:00 05/14/21 22:13 Enoxaparin 40 Mg/0.4 Ml Inj SUB-Q 40 mg QDAY@2200 EDDIE Administration Protocol Famotidine 20 mg 05/13/21 10:00 05/15/21 10:33 Famotidine 20 Mg Tab FEEDTUBE 20 mg BID EDDIE Administration Fentanyl 50 mcg 05/11/21 19:33 05/11/21 20:27 Fentanyl 100 Mcg/2 Ml Inj IV 50 mcg Q10MIN PRN Administration ANALGESIA Hydrocortisone Sodium Succinate 100 mg 05/14/21 12:00 05/15/21 05:08 Hydrocortisone Sod Succ 100 Mg/2 Ml Vial IV 100 mg Q8HR EDDIE Administration NORepinephrine/NS 8 MG-250 ML 8 mg in 250 mls @ 3.75 mls/hr 05/11/21 02:00 05/15/21 10:32 Norepinephrine/Ns 8 Mg-250 Ml (Double Conc) IV 4 mcg/min TITRATE EDDIE 7.5 mls/hr Titration Protocol 2 MCG/MIN Vasopressin 20 unit/ Sodium 101 mls @ 9.09 mls/hr 05/11/21 04:00 05/13/21 08:13 Chloride IV 0 units/min TITR EDDIE 0 mls/hr Titration Protocol 0.03 UNITS/MIN Fentanyl Citrate 2,000 mcg in 100 mls @ 2.64 mls/hr 05/11/21 20:00 Fentanyl Drip Premix IV TITR EDDIE Protocol 1 MCG/KG/HR Dextrose 1,000 mls @ 75 mls/hr 05/15/21 06:00 05/15/21 06:26 D5w IV 75 mls/hr DIRECT EDDIE Administration Lorazepam 2 mg 05/11/21 01:43 Lorazepam 2 Mg/Ml Vial IV Q1H PRN Seizures Metoclopramide HCl 10 mg 04/21/21 22:31 Metoclopramide 10 Mg/2 Ml Inj IV Q6H PRN Nausea And Vomiting Metoprolol Tartrate 2.5 mg 05/06/21 16:12 05/14/21 07:39 Metoprolol Tartrate 5 Mg/5 Ml Inj IV 2.5 mg Q6HR PRN Administration Tachyarrhythmias Ondansetron HCl 4 mg 04/21/21 22:31 Ondansetron 4 Mg/2 Ml Inj IV Q8H PRN Nausea And Vomiting Senna 17.2 mg 05/13/21 22:00 05/14/21 22:13 Sennosides 8.6 Mg Tab FEEDTUBE 17.2 mg QHS EDDIE Administration Simple Syrup 15 ml 05/07/21 13:04 Simple Syrup 15 Ml FEEDTUBE PRN PRN Hypoglycemia Simple Syrup 30 ml 05/07/21 13:04 Simple Syrup 15 Ml FEEDTUBE PRN PRN Hypoglycemia Sodium Bicarbonate 325 mg 05/07/21 13:04 Sodium Bicarbonate 325 Mg Tab FEEDTUBE PRN PRN For Clogged Feeding Tube Sodium Chloride 10 ml 04/22/21 10:00 05/15/21 10:33 Sodium Chloride 0.9% 10 Ml Flush Syringe IV 10 ml BID EDIDE Administration Sodium Chloride 10 ml 04/21/21 22:31 Sodium Chloride 0.9% 10 Ml Flush Syringe IV PRN PRN LINE FLUSH Valproic Acid 250 mg 05/13/21 22:00 05/14/21 22:13 Valproic Acid 250 Mg/5 Ml Oral Liqd FEEDTUBE 250 mg QHS EDDIE Administration Nutrition/Malnutrition Assess - Dietary Evaluation Nutrition/Malnutrition Findings: Nutrition Notes Start: 04/22/21 1 8:07 Freq: Status: Active Protocol: Document 05/12/21 13:28 RICKY (Rec: 05/12/21 13:54 RICKY [id number]) Nutrition Notes Need for Assessment generated from: Low BMI Initial or Follow up Brief Note Current Diet TF - Nepro w/CARBSTEADY @ 40 ml/hr (since L 05/11). Labs/Tests 05/12: Na 154, Cl 111.4, CO2 34, BUN 41, Crea 0.5, Glu 185, Phos 2.4. Pertinent Medications 05/12: Vasopressin 20 units in 101 ml @ 9.09 ml/hr, others nutritionally unremarkable. Height 6 ft Weight 52.8 kg [place] Body Weight (kg) 80.90 BMI 15.7 Weight change and time frame Discrepancy of 14.7 Kg body weight loss in 1 day reported. Likely a mistake. Weight Status Underweight Subjective/Other Information RD consult for Low BMI assessment. Likely a mistake meassurement, unable to contact RN to corroborate. F/U to check for actual Body Weight and assess accordingly. Pt still on pressors, Na lab still high, and continues on Mechanical ventilation. Percent of energy/protein needs met: Prescribed Nepro w/CARBSTEADY @ 40 ml/hr provides for energy /protein needs (1,728 Kcal/78 g) during LOS, 96% Kcal; 96% AA. #1 Nutrition Diagnosis Inadequate oral intake Diagnosis Progress(for reassessment Continues documentation) Nutrition Intervention Nutrition Support: Nepro w/CARBSTEADY @ 40 ml/hr. Flush: 200 ml water Q 4 hr, or as per MD. Kcal 1,728 Protein (gm) 78 Carbohydrates (gm) 155 Fat (gm) 92 Fluid (mL) 698 Fiber (gm) 12 % RDI: 96% Kcal; 96% AA. Goal #1 Provide at least 75% of energy /protein needs through Enteral Feeding during LOS. Follow-Up By: 01/21/22 Additional Comments Continue monitoring TF tolerance and BM. Check on body weight.
--- NOTE | 2021-05-15 14:34 | Event Note ---
Date: 05/15/21 Patient chart reviewed. Levophed requirements back to 4mcgs. FiO2 on vent @35% and PEEP @6. TF held. Consent obtained from patient's state guardian for tracheostomy, fiberoptic bronchoscopy. Will proceed to OR today.
[2021-05-15] MEDS ORDERED: GLYCOPYRROLATE 0.4 MG/2 ML INJ ONE (15:32)
[2021-05-15] MEDS ORDERED: NEOSTIGMINE 10MG/10 ML INJ MDV ONE (15:32)
[2021-05-15] MEDS ORDERED: ROCURONIUM 50 MG/5 ML INJ IV ONE (15:32)
[2021-05-15] MEDS ORDERED: PHENYLEPHRINE/NS 1,000 MCG/10 ML SYRINGE (OR USE) IV ONE (15:32)
--- NOTE | 2021-05-15 15:36 | Operative Report ---
Operative Report Operative Report: Date:05/15/2021 Surgeon:Gisselle Haines MD Pre-op diagnosis: respiratory failure with ventilator dependence Post-op diagnosis: same as pre-op Procedure:fiberoptic bronchoscopy Anesthesia: Indication: Patient is a 66 Male. Patient intubated and sedated therefore unable to provided detail history. The patient has been unable to be weaned from the ventilator and therefore tracheostomy with assistance of fiberoptic bronchoscopy is indicated along with PEG tube placement. All risks were discussed with the family, and consent obtained. Procedure in detail: The patient was identified in the hospital bed in the ICU and brought down to the OR. After anesthesia was induced, the fiberoptic bronchoscope was passed through the endotracheal tube using an adapter. The trachea and don were visualized, there was a normal appearance of the mucosa and no debris or fluid was seen. At this point, Dr. Thornton who performed the tracheostomy portion of the procedure (please see separate operative note), asked for the endotracheal tube to be withdrawn slowly. The upper trachea was visualized and appeared normal. At this point, Dr. Thornton placed the tracheostomy tube under direct visualization by fiberoptic bronchoscopy. Please see separate operative note for more details on Tracheostomy placement. Once the tracheostomy tube was placed, the bronchoscope was withdrawn from the endotracheal tube and placed through the tracheostomy tube. The tracheostomy tube appeared to be in good position approximately 6 cm above the don. The bronchoscope was then withdrawn. The procedure was terminated and the patient was returned to ICU in stable condition. Complication: none immediate
--- NOTE | 2021-05-15 15:38 | Operative Report ---
Operative Report Operative Report: Date of surgery: 05/15/2021 Preoperative diagnosis: Vent dependence Postoperative diagnosis: Same as above Procedure: Percutaneous tracheostomy Surgeon: Logan Thornton DO Anesthesia: Geta, local Findings: Good placement of tracheostomy as visualized by fiberoptic bronchoscopy EBL: LESS than 5 cc Specimen: None Complications: None Disposition: Stable to ICU HPI and indication: Patient is a 66 year-old male who was diagnosed with COVID last month. The patient's respiratory status declined and he was intubated. Due to his mental status, he is unable to be weaned and extubated for mechanical ventilation. A tracheostomy was requested by the cycle consultant. All risk, benefits, alternatives to the procedure were discussed with the patient's state appointed guardian and questions answered. Consent obtained for tracheostomy and fiberoptic bronchoscopy. Procedure in detail: The patient was identified in the ICU and brought down to the operating room and positioned in supine position in the hospital bed. Consent was verified on the chart timeout was performed. The neck was prepped and draped in usual sterile fashion. Anesthesia was administered. A shoulder roll was placed, with the patient's neck mildly hyperextended.. Dr. Haines performed fiberoptic bronchoscopy throughout the entire procedure (see separate note). The fiberoptic bronchoscope was inserted through the endotracheal tube via the adapter and the trachea examined. The trachea was unremarkable and the 7.5 ET tube was approximately 6 cm from don at 23 cm at the lip. 1% lidocaine was infiltrated into the skin and subcutaneous tissue approximately 2 fingerbreadths above the sternal notch. A 2 cm incision was made in a horizontal fashion using a 15 blade. Using a hemostat the soft tissues were bluntly dissected until the trachea was encountered. The ET tube was then pulled back slowly to 17 cm. Using the introducer needle, the trachea was entered under direct visualization. The wire was passed down the trachea towards the don. Introducer needle was then removed. The trachea was then serially dilated, after which a 8 [place] Shiley tracheostomy tube was inserted. The balloon was visualized via fiberoptic bronchoscopy. The balloon was inflated, patient placed back on ventilator. There was end-tidal CO2 detected and tidal volumes assessed which were satisfactory. The bronchoscope was then placed through the tracheostomy and showed good positioning of the tracheostomy approximately 6 cm above the don and no bleeding. A drain sponge was placed between the skin and tracheostomy. The tracheostomy was secured to the patient's neck using a tracheostomy strap. A post op chest x-ray is pending. The patient tolerated the procedure well. All sharps were disposed of appropriately. The patient was taken back to the ICU in stable condition.
[2021-05-15] MEDS: NORepinephrine/NS 8 MG-250 ML 8 MG/250 ML INFUS..BTL IV SCH (15:52)
--- NOTE | 2021-05-15 16:05 | XRay Report ---
CHEST 1 VIEW 05/15/2021 3:43 PM INDICATION / CLINICAL INFORMATION: tracheostomy. COMPARISON: May 12, 2021 FINDINGS: SUPPORT DEVICES: Interval placement of a tracheostomy tube with the tip noted approximate 4.4 cm from the don. HEART / MEDIASTINUM: Stable. LUNGS / PLEURA: Redemonstrated patchy airspace opacities, not significantly changed No pneumothorax. ADDITIONAL FINDINGS: No significant additional findings. IMPRESSION: 1. Interval placement of tracheostomy tube with tip noted 4.4 cm from the don. Otherwise no signif icant change. Signer Name: Tommy Elkins DO Signed: 05/15/2021 4:01 PM Workstation Name: [id number]
--- NOTE | 2021-05-15 17:34 | Anesthesia Day of Surgery ---
Anesthesia Day of Surgery - Day of Surgery Patient Examined: Yes Patient H&P Reviewed: Yes Patient is NPO: Yes
--- NOTE | 2021-05-15 17:35 | Post Anesthesia Evaluation ---
- Post Anesthesia Evaluation Patient Participated: No Airway Patent: Yes Stable Respiratory Function: Yes Nausea/Vomiting: No Temp > 96.8F: Yes Pain Manageable: Yes Adequeate Hydration: Yes Anesthesia Complications: No Block Receding Appropriately: Not Applicable Patient on Ventilator: Yes
[2021-05-15] MEDS: ENOXAPARIN 40 MG/0.4 ML INJ SUB-Q SCH (21:47)
[2021-05-15] MEDS: SENNOSIDES 8.6 MG TAB FEEDTUBE SCH (21:47)
[2021-05-15] MEDS: VALPROIC ACID 250 MG/5 ML ORAL LIQD FEEDTUBE SCH (21:47)
[2021-05-16 04:42] LABS: ABG Base Excess 9.9 mmol/L (-2.0-3.0); ABG HCO3 33.8 mmol/L (20.0-26.0); ABG Methemoglobin 0.5 % (0.0-1.5); ABG Oxygen Saturation 96.2 % (95.0-99.0); ABG PCO2 42.9 mm Hg; ABG PH 7.514 pH Units (7.350-7.450); ABG PO2 66.8 mm Hg (80.0-90.0)
[2021-05-16] MEDS: HYDROCORTISONE SOD SUCC 100 MG/2 ML VIAL IV SCH ×2 (05:05→13:55)
[2021-05-16 05:58] LABS: Hematocrit 27.5 % (35.5-45.6); Hemoglobin 8.9 gm/dl (11.8-15.2); Mean Corpuscular HGB Conc 32 % (32-34); Mean Corpuscular Volume 94 fl (84-94); Platelet Count 108 K/mm3 (140-440); Red Blood Count 2.91 M/mm3 (3.65-5.03); Red Cell Distribution Width 14.7 % (13.2-15.2)
[2021-05-16 06:12] LABS: Blood Urea Nitrogen 17 mg/dL (9-20); Calcium 7.8 mg/dL (8.4-10.2); Hemolysis Index 3
[2021-05-16 06:15] LABS: BUN/Creatinine Ratio 85
[2021-05-16] MEDS ORDERED: POTASSIUM CHLORIDE 20 MEQ PACKET FEEDTUBE NR (08:15)
[2021-05-16] MEDS: FAMOTIDINE 20 MG TAB FEEDTUBE SCH (09:06)
[2021-05-16] MEDS: FREE WATER PO SCH ×2 (09:07→13:56)
--- NOTE | 2021-05-16 11:40 | Discharge Summary ---
Providers - Providers Date of Admission: 04/21/21 19:00 Date of discharge: 05/16/21 Attending physician: RAFAEL TAYLOR 04/22/21 15:36 Consult to Physician [CONS] Routine Comment: Consulting Provider: GRETA WOLF Physician Instructions: Reason For Exam: COVID 19 + respiratory failure 04/23/21 07:27 Occupational Therapy Evaluate and Treat [CONS] Routine Comment: Reason For Exam: Debility Physical Therapy Evaluation and Treat [CONS] Routine Comment: Reason For Exam: Debility 04/24/21 10:19 Consult to Physician [CONS] Routine Comment: Consulting Provider: PITER GUERRERO Physician Instructions: Reason For Exam: Continued acute encephalopathy 04/24/21 10:22 Consult to Dietitian/Nutrition [CONS] Routine Physician Instructions: Reason For Exam: Poor oral intake in the setting of encephalopathy Reason for Consult: Poor oral intake 04/26/21 11:09 Speech Therapy Evaluation and Treat [CONS] Routine Reason For Exam: Concern for aspiration 04/29/21 11:25 Consult to Physician [CONS] Routine Comment: Consulting Provider: YULI SNELL Physician Instructions: Reason For Exam: Evaluation for PEG Tube placement 04/30/21 13:14 Consult to Dietitian/Nutrition [CONS] Routine Physician Instructions: Reason For Exam: Reason for Consult: Write/Manage Tube Feeding 05/02/21 11:51 Consult to Physician [CONS] Routine Comment: Consulting Provider: ADITI CATES Physician Instructions: Reason For Exam: LL atelectasis 2/2 mucus plugging 05/06/21 08:51 Consult to Physician [CONS] Routine Comment: Consulting Provider: AMADOR RANGEL Physician Instructions: Reason For Exam: Reconsult/PEG placement 05/07/21 12:07 Consult to Dietitian/Nutrition [CONS] Routine Physician Instructions: Reason For Exam: Reason for Consult: post-peg 05/12/21 14:54 Consult to Physician [CONS] Routine Comment: left mess./ lisandra Consulting Provider: JHOANA ALMONTE Physician Instructions: Reason For Exam: Trach, unresponsive, guardianship 05/13/21 13:37 PICC Line Insertion [Consult to PICC Line RN] [CONS] Urgent Reason For Exam: On pressors Type Line:: PICC Primary care physician: CALL CENTER ASSISTANT Hospitalization Reason for admission: 04/21/21 Condition: Stable Hospital course: This is a 66-year old with unknown past medical history who resides in a [facility] home initially admitted for acute metabolic encephalopathy and COVID pneumonia. Patient decompensated on 05/11 requiring intubation and ventilatory support. Hospital Course to Date: 05/06/2021; patient scheduled for PEG tomorrow N.p.o. status, mild to moderate risk for the procedure No medical contraindication for PEG placement. 05/07/2021; patient scheduled for PEG today Case management working on LTAC versus SNF placement 05/08/2021; status post PEG placement yesterday Start tube feeds per protocol, continuous high flow nasal cannula oxygen 40 L Unable to wean, very poor prognosis, pulmonary following, pending LTAC evaluation 05/09/2021; continue high flow nasal cannula oxygen 35 L. Wean as tolerated Case management considering hospice, discussed with [place]rera of the state yesterday Will follow-up with their plan 05/10/2021; mild hypotension, due to poor nutrition due to risk of aspiration nurse gives only intermittent tube feeding Resume tube feeding with aspiration precautions head end of the bed 45 degrees, reduce the flow rate to 20 to 30 mL intermittently And fluid bolus to 50 mL normal saline intermittently as needed. Patient is critically ill with poor prognosis 05/11: Intubated overnight for airway protection. S/p bronchoscopy this am due to mucus plus and complete white out of the left lung. Repeat CXR with mild improvement. D/W CCM pending on guardian's decision on code status, patient might to be bronched again if remains a full code. Patient remains on high dose pressors, will hold TF for now, continue IVF. Continue to monitor electrolytes, repeat labs ordered 05/12: Patient aeration improved post bronch. Remains on 2 pressors, patient afebrile with no leukocytosis. Will try fluid bolus challenge in attempt to wean off pressors. D/w CCM plan for tracheotomy, surgery consulted. 05/13: Patient tolerated fluid challenge, down to only 4mcg of Levo this am, additional 1L bolus today. Plan to wean off pressors. Continue FWF for the hypernatremia. Gen surgery consulted for possible trach. 05/14: Pressor requirement increased this am, stress does steroids added and 1L IVF bolus given.Electrolytes repleted, repeat labs in the am. Possible Trach tomorrow, awaiting approval from legal guardian and the state, case management to follow up. 05/15: Remains on low dose pressors, continue to wean as tolerated. Plan for possible trach today surgery. Per case management if patient is trach today, possible transfer to LTAC in the am. Continue supportive care 05/16: S/p tracheotomy on the vent. Discharge to [facility] today. 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 Assessment and Plan #Acute Metabolic Encephalopathy - Patient remains unresponsive, not on any sedation - CT head with no acute abnormalities - Neurology on consulted - Avoid benzodiazepine to reduce the possibility of delirium - PRN analgesia for CPOT greater than 3 - Patient is a [facility]rera of [facility], contact is Ms. Mattson to discuss clinical updates/consent for procedures ([phone]) #Hypotension #Tachycardia - Remains bordeline hypotensive, St on the monitor - on low dose pressors today - Stress dose steroids added - plan to wean off pressors - Maintain adequate perfusion - Continue blood pressure monitor per protocol - Maintain MAP above 65 #Acute Hypoxic Respiratory Failure #COVID Pneumonia #LL Mucus Plug - Presented with hypoxia requiring HHFL - Imagings with bilateral pneumonia and mucous plug - S/p aggressive chest PT - COVID Swab positive - on 05/11 Decompensated was intubated, CXR with complete white out of left lung - Vent setting: A/C-30%,6,24,450 - This am ABG noted - CCM consulted, appreciate recommendations - 05/11 s/p Bronchoscopy at the bedside - Post Bronch CXR with improved aeration - Continue Nebs per CCM - VAP bundle addressed - Aspiration precaution HOB above 30 - Daily ABG and CXR - Continue SPO2 monitoring for SPO2 goal above 92% #GI:Dysphagia #Severe Protein Calorie Malnutrition - Presented with a BMI 20.3; albumin 2.4 - 05/07 s/p PEG placement by GI - Nutrition on consult - NPO AMN for possible procedure - Continue PPI and BR - GI signed off #Hypernatremia #Hypokalemia - Electrolytes repleted - Continue FWF - Strict intake and output - Monitor and replace electrolytes as needed - Trend BMP #COVID Pneumonia #Leukocytosis - COVID swab positive - Blood culture and urine culture are negative - Sputum culture NGTD - Completed IV Remdesevir course - Patient remains afebrile - Richi in WBCs most likely due to IV steroids, will continue to monitor - Daily CBC monitor #Endo: Glycemic Control - Continue BG check Q6hrs - No SSI at this time - Continue IVF - Avoid hypoglycemia #DVT prophylaxis - Continue AC- Lovenox SubQ - SCDs to bilateral lower extremities while in bed Disposition: 04 [facility] Final Discharge Diagnosis (Prints w/discharge instructions): Metabolic Encephalopathy. COVID Pneumonia Time spent for discharge: 35 Core Measure Documentation - Palliative Care Palliative Care/ Comfort Measures: Not Applicable - Core Measures Any of the following diagnoses?: none Exam - Constitutional Vitals: Temp Pulse Resp BP Pulse Ox 97.8 F 96 H 27 H 86/56 96 05/16/21 11:19 05/16/21 08:30 05/16/21 08:00 05/16/21 08:30 05/16/21 10:25 General appearance: Present: no acute distress, other (On the vent) - EENT Eyes: Present: PERRL - Respiratory Respiratory effort: normal Respiratory: bilateral: rhonchi - Cardiovascular Rhythm: regular Heart Sounds: Present: S1 & S2 - Extremities Extremities: no ischemia, pulses intact, pulses symmetrical Extremity abnormal: edema - Peripheral Assessment Generalized Edema Type: Non-pitting Edema Degree: 1+ Capillary Refill: < 3 seconds Skin Temperature: Warm Peripheral Pulses: within normal limits - Abdominal General gastrointestinal: Present: soft, non-distended, normal bowel sounds Male genitourinary: Present: deferred - Rectal Rectal Exam: deferred - Integumentary Integumentary: Present: warm, dry - Musculoskeletal Musculoskeletal: generalized weakness - Psychiatric Psychiatric: other (Unresponsive) - Neurologic Neurologic: other (Unresponsive) - Allied Health Allied health notes reviewed: nursing, case management Plan Activity: other (Per LTAC facility) Diet: other (TF via PEG) Wound: open to air Follow up with: PRIMARY CAREMD [Primary Care Provider] - 3-5 Days
--- NOTE | 2021-05-16 14:20 | Progress Note ---
Assessment and Plan 66 y/o male with altered mental status found to be COVID positive, now with worsening respiratory failure. 05/16/2021:. Patient underwent tracheostomy placement and PEG tube placement without incidence. Patient tolerated those procedures well. He is scheduled to go to LTAC today. 05/15/21: Scheduled for trach today. Scheduled for discharge to LTACH in the morning. Continue supportive measures. can likely discontinue hydrocortisone as it has not made a difference in blood pressure. Ok with fluid boluses to help with BP. Guarded to poor prognosis. 05/14/21: Will start stress dose steroids to see if this helps with vasopressor requirement. [employer]otor [employer]er to approve procedure today, CM to follow up. No sedation, monitor fever curve. Guarded to poor prognosis. Placement once trached. 05/13/21: Appreciate Surgery Help. Trach scheduled for Tuesday. Filled out paperwork for guardian to approve trach. Daily PSV trials as tolerated. 05/12/21: Placed consult to surgery for trach and peg as patient's mental state will not allow successful weaning without a secure airway. Continue CPT therapy. CM to reach out to guardian to start working on placement. 05/10/21: Continue CPT. Called by RT yesterday for changes in breathing pattern but still with good sats. Patient is not a candidate for bipap so next step would be intubation. Asked RT to pass this on to night time staff. Still awaiting to hear from guardianship about hospice as all of their patient's are full code and they will likely not change his code status. Poor prognosis. 05/09/21: Given current clinical state, no improvement in pulmonary status, i ncreased weakness with continued risk for aspiration in the face of COVID 19 pneumonia, I agree that hospice would be a reasonable option for this patient. Not sure what company could take current oxygen demand so if this is pursued it would likely need to be inpatient with plans of comfort and deescalation. Continue CPT and mucomyst nebs. Guarded to poor prognosis. 05/08/21: Continue CPT. Will try mucomyst nebs to see if this helps with sputum expectoration given weak cough. Guarded prognosis. Prone if able. 05/07/21: Continue CPT. Will speak with pharmacy but may need hypertonic saline neb to help induce cough to help expectorate mucous. Ideally should be bronched, but would need to either be intubated or have LMA and doubt GI will allow given COVID positive state. Guarded to poor prognosis. 05/06/21: Please continue CPT multiple times daily. Please document this. Suggest proning patient to help with oxygenation if possible. Guarded prognosis. 05/05/21: Increased CPT to 3-6x daily. Should be done with scheduled albuterol therapy. Please wake patient up for scheduled meds as we are trying to remove mucous and improve oxygenation. Will discuss with RT to pass on to night shit. Prone as much as possible. Daily net negative fluid balance 1. Mucous plug on CTA. Needs CPT but more than daily. Please increase to at least TID 2. Prone as much as possible and sleep prone at night 3. Has already finished steroids 4. Guarded prognosis. Subjective Date of service: 05/16/21 Principal diagnosis: Encephalopathy,COVID-19 Interval history: Patient remain on mechanical ventilator. Had trach and PEG. Patient is scheduled to transfer to LTAC likely today. Objective Vital Signs - 12hr 05/16/21 05/16/21 05/16/21 02:39 04:00 04:03 Temperature 97.9 F Pulse Rate 99 H Pulse Rate [ 102 H From Monitor] Respiratory 27 H Rate Blood Pressure 98/63 91/54 O2 Sat by Pulse 96 94 Oximetry O2 Sat by Pulse Oximetry [ Assessment] 05/16/21 05/16/21 05/16/21 04:04 05:05 06:12 Temperature Pulse Rate 99 H Pulse Rate [ From Monitor] Respiratory Rate Blood Pressure 99/59 82/56 O2 Sat by Pulse Oximetry O2 Sat by Pulse Oximetry [ Assessment] 05/16/21 05/16/21 05/16/21 07:20 08:00 08:30 Temperature 98.4 F Pulse Rate 109 H 96 H Pulse Rate [ 109 H From Monitor] Respiratory 27 H Rate Blood Pressure 86/56 O2 Sat by Pulse 92 96 Oximetry O2 Sat by Pulse Oximetry [ Assessment] 05/16/21 05/16/21 05/16/21 10:25 11:19 12:00 Temperature 97.8 F Pulse Rate 110 H Pulse Rate [ From Monitor] Respiratory Rate Blood Pressure 93/60 O2 Sat by Pulse 96 Oximetry O2 Sat by Pulse 96 Oximetry [ Assessment] Constitutional: other (on nrb mask sat 100%, opens eyes to tactile stimuli, doesnt follow command ) ENT: oropharynx moist, oropharynx dry Ascultation: Bilateral: rhonchi (sl better) Cardiovascular: regular rate and rhythm, PVC's noted Gastrointestinal: normoactive bowel sounds Integumentary: normal CBC and BMP: 05/16/21 04:00 05/16/21 04:00 ABG, PT/INR, D-dimer: ABG ABG pH 7.514 pH Units (7.350-7.450) H 05/16/21 03:09 POC ABG pCO2 129.5 mmHg (32.0-48.0) H 05/11/21 03:20 ABG pCO2 42.9 mm Hg 05/16/21 03:09 POC ABG pO2 139.1 mmHg (83-108) H 05/11/21 03:20 ABG pO2 66.8 mm Hg (80.0-90.0) L 05/16/21 03:09 POC ABG HCO3 37.8 05/11/21 03:20 ABG O2 Saturation 96.2 % (95.0-99.0) 05/16/21 03:09 PT/INR, D-dimer PT 14.6 Sec. (12.2-14.9) 05/15/21 05:00 INR 1.03 (0.87-1.13) 05/15/21 05:00 D-Dimer 690.97 ng/mlDDU (0-234) H 04/30/21 06:20 Abnormal lab findings: Abnormal Labs 04/21/21 04/21/21 04/22/21 16:08 16:08 00:20 WBC RBC Hgb Hct MCV 96 H MCH MCHC RDW Plt Count Lymph % (Auto) 8.5 L [place] % (Auto) 15.8 H Lymph # (Auto) 0.9 L [place] # (Auto) 1.7 H Seg Neutrophils % 75.6 H Seg Neuts % (Manual) Lymphocytes % (Manual) Monocytes % (Manual) Seg Neutrophils # 8.0 H Seg Neutrophils # Man Lymphocytes # (Manual) Monocytes # (Manual) PT INR APTT D-Dimer 621.94 H ABG pH POC ABG pCO2 POC ABG pO2 ABG pO2 ABG HCO3 ABG Base Excess ABG Hemoglobin ABG Oxyhemoglobin ABG Sodium ABG Potassium ABG Chloride ABG Glucose Oxyhemoglobin Carboxyhemoglobin Sodium Potassium Chloride Carbon Dioxide BUN Creatinine 0.6 L Glucose 107 H POC Glucose Calcium 8.3 L Phosphorus Ferritin AST 136 H Lactate Dehydrogenase C-Reactive Protein Total Protein 6.2 L Albumin 3.0 L Lipase 7 L Vitamin B12 Arterial Blood Glucose Valproic Acid Coronavirus (PCR) 04/22/21 04/22/21 04/22/21 00:20 00:20 06:51 WBC RBC Hgb Hct MCV 95 H MCH MCHC RDW Plt Count Lymph % (Auto) [place] % (Auto) Lymph # (Auto) [place] # (Auto) Seg Neutrophils % Seg Neuts % (Manual) 91.0 H Lymphocytes % (Manual) 1.0 L Monocytes % (Manual) Seg Neutrophils # Seg Neutrophils # Man Lymphocytes # (Manual) 0.1 L Monocytes # (Manual) PT INR APTT D-Dimer ABG pH POC ABG pCO2 POC ABG pO2 ABG pO2 ABG HCO3 ABG Base Excess ABG Hemoglobin ABG Oxyhemoglobin ABG Sodium ABG Potassium ABG Chloride ABG Glucose Oxyhemoglobin Carboxyhemoglobin Sodium Potassium Chloride Carbon Dioxide BUN Creatinine Glucose POC Glucose Calcium Phosphorus Ferritin 427.3 H AST Lactate Dehydrogenase 379 H C-Reactive Protein 9.20 H Total Protein Albumin Lipase Vitamin B12 Arterial Blood Glucose Valproic Acid Coronavirus (PCR) 04/22/21 04/22/21 04/23/21 06:51 Unknown 09:24 WBC RBC Hgb Hct MCV 96 H MCH MCHC RDW Plt Count Lymph % (Auto) 5.9 L [place] % (Auto) 9.3 H Lymph # (Auto) 0.5 L [place] # (Auto) Seg Neutrophils % 84.8 H Seg Neuts % (Manual) Lymphocytes % (Manual) Monocytes % (Manual) Seg Neutrophils # Seg Neutrophils # Man Lymphocytes # (Manual) Monocytes # (Manual) PT INR APTT D-Dimer ABG pH POC ABG pCO2 POC ABG pO2 ABG pO2 ABG HCO3 ABG Base Excess ABG Hemoglobin ABG Oxyhemoglobin ABG Sodium ABG Potassium ABG Chloride ABG Glucose Oxyhemoglobin Carboxyhemoglobin Sodium Potassium Chloride Carbon Dioxide BUN Creatinine 0.4 L Glucose 114 H POC Glucose Calcium 8.0 L Phosphorus Ferritin AST 116 H Lactate Dehydrogenase C-Reactive Protein Total Protein 5.9 L Albumin 3.0 L Lipase Vitamin B12 Arterial Blood Glucose Valproic Acid Coronavirus (PCR) Positive A 04/23/21 04/23/21 04/24/21 09:24 22:38 07:56 WBC RBC Hgb Hct MCV MCH MCHC RDW Plt Count Lymph % (Auto) [place] % (Auto) Lymph # (Auto) [place] # (Auto) Seg Neutrophils % Seg Neuts % (Manual) Lymphocytes % (Manual) Monocytes % (Manual) Seg Neutrophils # Seg Neutrophils # Man Lymphocytes # (Manual) Monocytes # (Manual) PT INR APTT D-Dimer ABG pH POC ABG pCO2 POC ABG pO2 ABG pO2 ABG HCO3 ABG Base Excess ABG Hemoglobin ABG Oxyhemoglobin ABG Sodium ABG Potassium ABG Chloride ABG Glucose Oxyhemoglobin Carboxyhemoglobin Sodium Potassium 3.5 L Chloride Carbon Dioxide BUN Creatinine 0.5 L Glucose 102 H POC Glucose 111 H Calcium 8.3 L Phosphorus 2.30 L Ferritin AST Lactate Dehydrogenase C-Reactive Protein Total Protein Albumin Lipase Vitamin B12 1039 H Arterial Blood Glucose Valproic Acid Coronavirus (PCR) 04/24/21 04/24/21 04/24/21 07:56 07:56 21:37 WBC RBC Hgb Hct MCV 95 H MCH MCHC RDW Plt Count Lymph % (Auto) [place] % (Auto) Lymph # (Auto) [place] # (Auto) Seg Neutrophils % Seg Neuts % (Manual) 80.0 H Lymphocytes % (Manual) 10.0 L Monocytes % (Manual) 10.0 H Seg Neutrophils # Seg Neutrophils # Man Lymphocytes # (Manual) 0.7 L Monocytes # (Manual) PT INR APTT D-Dimer ABG pH POC ABG pCO2 POC ABG pO2 ABG pO2 ABG HCO3 ABG Base Excess ABG Hemoglobin ABG Oxyhemoglobin ABG Sodium ABG Potassium ABG Chloride ABG Glucose Oxyhemoglobin Carboxyhemoglobin Sodium Potassium Chloride Carbon Dioxide BUN Creatinine 0.4 L Glucose POC Glucose 111 H Calcium Phosphorus Ferritin AST Lactate Dehydrogenase C-Reactive Protein Total Protein Albumin Lipase Vitamin B12 Arterial Blood Glucose Valproic Acid Coronavirus (PCR) 04/25/21 04/25/21 04/25/21 06:24 06:24 23:13 WBC RBC Hgb Hct 46.6 H MCV MCH MCHC RDW Plt Count Lymph % (Auto) [place] % (Auto) Lymph # (Auto) [place] # (Auto) Seg Neutrophils % Seg Neuts % (Manual) 83.0 H Lymphocytes % (Manual) 1.0 L Monocytes % (Manual) 9.0 H Seg Neutrophils # Seg Neutrophils # Man Lymphocytes # (Manual) 0.1 L Monocytes # (Manual) PT INR APTT D-Dimer ABG pH POC ABG pCO2 POC ABG pO2 ABG pO2 ABG HCO3 ABG Base Excess ABG Hemoglobin ABG Oxyhemoglobin ABG Sodium ABG Potassium ABG Chloride ABG Glucose Oxyhemoglobin Carboxyhemoglobin Sodium 136 L 134 L Potassium 3.3 L Chloride Carbon Dioxide 21 L BUN Creatinine 0.3 L 0.4 L Glucose 115 H POC Glucose Calcium 7.7 L Phosphorus Ferritin AST 104 H Lactate Dehydrogenase C-Reactive Protein Total Protein 6.1 L Albumin 2.6 L Lipase Vitamin B12 Arterial Blood Glucose Valproic Acid Coronavirus (PCR) 04/26/21 04/27/21 04/27/21 06:29 06:31 06:31 WBC 17.6 H RBC Hgb Hct MCV MCH MCHC RDW Plt Count Lymph % (Auto) [place] % (Auto) Lymph # (Auto) [place] # (Auto) Seg Neutrophils % Seg Neuts % (Manual) 87.0 H Lymphocytes % (Manual) 5.0 L Monocytes % (Manual) Seg Neutrophils # Seg Neutrophils # Man 15.3 H Lymphocytes # (Manual) 0.9 L Monocytes # (Manual) 0.9 H PT INR APTT D-Dimer ABG pH POC ABG pCO2 POC ABG pO2 ABG pO2 ABG HCO3 ABG Base Excess ABG Hemoglobin ABG Oxyhemoglobin ABG Sodium ABG Potassium ABG Chloride ABG Glucose Oxyhemoglobin Carboxyhemoglobin Sodium Potassium 3.4 L Chloride Carbon Dioxide BUN Creatinine 0.5 L 0.4 L Glucose 112 H 106 H POC Glucose Calcium 8.0 L Phosphorus Ferritin AST 114 H 110 H Lactate Dehydrogenase C-Reactive Protein Total Protein 6.2 L Albumin 2.9 L 2.6 L Lipase Vitamin B12 Arterial Blood Glucose Valproic Acid Coronavirus (PCR) 04/28/21 04/28/21 04/29/21 08:03 08:03 04:00 WBC 19.8 H 14.0 H RBC Hgb Hct MCV 95 H MCH MCHC RDW Plt Count Lymph % (Auto) [place] % (Auto) Lymph # (Auto) [place] # (Auto) Seg Neutrophils % Seg Neuts % (Manual) 94.0 H Lymphocytes % (Manual) 1.0 L Monocytes % (Manual) Seg Neutrophils # Seg Neutrophils # Man 18.6 H Lymphocytes # (Manual) 0.2 L Monocytes # (Manual) PT INR APTT D-Dimer ABG pH POC ABG pCO2 POC ABG pO2 ABG pO2 ABG HCO3 ABG Base Excess ABG Hemoglobin ABG Oxyhemoglobin ABG Sodium ABG Potassium ABG Chloride ABG Glucose Oxyhemoglobin Carboxyhemoglobin Sodium Potassium Chloride Carbon Dioxide BUN Creatinine 0.2 L Glucose 107 H POC Glucose Calcium 8.1 L Phosphorus Ferritin AST 87 H Lactate Dehydrogenase C-Reactive Protein Total Protein 5.1 L Albumin 2.4 L Lipase Vitamin B12 Arterial Blood Glucose Valproic Acid Coronavirus (PCR) 04/29/21 04/30/21 04/30/21 04:00 06:20 06:20 WBC RBC Hgb Hct MCV MCH MCHC RDW Plt Count Lymph % (Auto) [place] % (Auto) Lymph # (Auto) [place] # (Auto) Seg Neutrophils % Seg Neuts % (Manual) Lymphocytes % (Manual) Monocytes % (Manual) Seg Neutrophils # Seg Neutrophils # Man Lymphocytes # (Manual) Monocytes # (Manual) PT INR APTT D-Dimer 690.97 H ABG pH POC ABG pCO2 POC ABG pO2 ABG pO2 ABG HCO3 ABG Base Excess ABG Hemoglobin ABG Oxyhemoglobin ABG Sodium ABG Potassium ABG Chloride ABG Glucose Oxyhemoglobin Carboxyhemoglobin Sodium 148 H Potassium 3.0 L Chloride 110.2 H Carbon Dioxide BUN Creatinine 0.2 L Glucose 130 H POC Glucose Calcium Phosphorus Ferritin 930.1 H AST 63 H Lactate Dehydrogenase C-Reactive Protein Total Protein 5.6 L Albumin 2.4 L Lipase Vitamin B12 Arterial Blood Glucose Valproic Acid Coronavirus (PCR) 04/30/21 04/30/21 04/30/21 06:20 08:01 08:41 WBC RBC Hgb Hct MCV MCH MCHC RDW Plt Count Lymph % (Auto) [place] % (Auto) Lymph # (Auto) [place] # (Auto) Seg Neutrophils % Seg Neuts % (Manual) Lymphocytes % (Manual) Monocytes % (Manual) Seg Neutrophils # Seg Neutrophils # Man Lymphocytes # (Manual) Monocytes # (Manual) PT INR APTT D-Dimer ABG pH POC ABG pCO2 POC ABG pO2 ABG pO2 ABG HCO3 ABG Base Excess ABG Hemoglobin ABG Oxyhemoglobin ABG Sodium ABG Potassium ABG Chloride ABG Glucose Oxyhemoglobin Carboxyhemoglobin Sodium 151 H Potassium 3.3 L Chloride 110.3 H Carbon Dioxide BUN Creatinine 0.3 L Glucose 119 H POC Glucose 119 H Calcium Phosphorus Ferritin AST Lactate Dehydrogenase 423 H C-Reactive Protein 8.90 H Total Protein Albumin Lipase Vitamin B12 Arterial Blood Glucose Valproic Acid Coronavirus (PCR) 04/30/21 05/01/21 05/01/21 11:14 07:29 07:29 WBC 21.4 H RBC Hgb Hct MCV MCH MCHC RDW Plt Count Lymph % (Auto) [place] % (Auto) Lymph # (Auto) [place] # (Auto) Seg Neutrophils % Seg Neuts % (Manual) Lymphocytes % (Manual) Monocytes % (Manual) Seg Neutrophils # Seg Neutrophils # Man Lymphocytes # (Manual) Monocytes # (Manual) PT INR APTT D-Dimer ABG pH POC ABG pCO2 POC ABG pO2 ABG pO2 ABG HCO3 ABG Base Excess ABG Hemoglobin ABG Oxyhemoglobin ABG Sodium ABG Potassium ABG Chloride ABG Glucose Oxyhemoglobin Carboxyhemoglobin Sodium 150 H Potassium 2.7 L* Chloride 111.2 H Carbon Dioxide BUN Creatinine 0.3 L Glucose 162 H POC Glucose 113 H Calcium Phosphorus Ferritin AST Lactate Dehydrogenase C-Reactive Protein Total Protein Albumin Lipase Vitamin B12 Arterial Blood Glucose Valproic Acid Coronavirus (PCR) 05/01/21 05/01/21 05/01/21 07:33 11:28 17:54 WBC RBC Hgb Hct MCV MCH MCHC RDW Plt Count Lymph % (Auto) [place] % (Auto) Lymph # (Auto) [place] # (Auto) Seg Neutrophils % Seg Neuts % (Manual) Lymphocytes % (Manual) Monocytes % (Manual) Seg Neutrophils # Seg Neutrophils # Man Lymphocytes # (Manual) Monocytes # (Manual) PT INR APTT D-Dimer ABG pH POC ABG pCO2 POC ABG pO2 ABG pO2 ABG HCO3 ABG Base Excess ABG Hemoglobin ABG Oxyhemoglobin ABG Sodium ABG Potassium ABG Chloride ABG Glucose Oxyhemoglobin Carboxyhemoglobin Sodium Potassium Chloride Carbon Dioxide BUN Creatinine Glucose POC Glucose 147 H 152 H 165 H Calcium Phosphorus Ferritin AST Lactate Dehydrogenase C-Reactive Protein Total Protein Albumin Lipase Vitamin B12 Arterial Blood Glucose Valproic Acid Coronavirus (PCR) 05/02/21 05/02/21 05/02/21 00:23 05:28 05:28 WBC 18.9 H RBC Hgb Hct MCV 95 H MCH MCHC 31 L RDW Plt Count Lymph % (Auto) [place] % (Auto) Lymph # (Auto) [place] # (Auto) Seg Neutrophils % Seg Neuts % (Manual) Lymphocytes % (Manual) Monocytes % (Manual) Seg Neutrophils # Seg Neutrophils # Man Lymphocytes # (Manual) Monocytes # (Manual) PT INR APTT D-Dimer ABG pH POC ABG pCO2 POC ABG pO2 ABG pO2 ABG HCO3 ABG Base Excess ABG Hemoglobin ABG Oxyhemoglobin ABG Sodium ABG Potassium ABG Chloride ABG Glucose Oxyhemoglobin Carboxyhemoglobin Sodium 151 H Potassium Chloride 111.4 H Carbon Dioxide BUN Creatinine 0.3 L Glucose 132 H POC Glucose 160 H Calcium 8.3 L Phosphorus Ferritin AST Lactate Dehydrogenase C-Reactive Protein Total Protein Albumin Lipase Vitamin B12 Arterial Blood Glucose Valproic Acid Coronavirus (PCR) 05/02/21 05/02/21 05/02/21 07:42 11:31 16:39 WBC RBC Hgb Hct MCV MCH MCHC RDW Plt Count Lymph % (Auto) [place] % (Auto) Lymph # (Auto) [place] # (Auto) Seg Neutrophils % Seg Neuts % (Manual) Lymphocytes % (Manual) Monocytes % (Manual) Seg Neutrophils # Seg Neutrophils # Man Lymphocytes # (Manual) Monocytes # (Manual) PT INR APTT D-Dimer ABG pH POC ABG pCO2 POC ABG pO2 ABG pO2 ABG HCO3 ABG Base Excess ABG Hemoglobin ABG Oxyhemoglobin ABG Sodium ABG Potassium ABG Chloride ABG Glucose Oxyhemoglobin Carboxyhemoglobin Sodium Potassium Chloride Carbon Dioxide BUN Creatinine Glucose POC Glucose 170 H 131 H 140 H Calcium Phosphorus Ferritin AST Lactate Dehydrogenase C-Reactive Protein Total Protein Albumin Lipase Vitamin B12 Arterial Blood Glucose Valproic Acid Coronavirus (PCR) 05/02/21 05/03/21 05/03/21 22:42 06:11 09:20 WBC 16.2 H RBC 3.51 L Hgb 10.5 L Hct 33.1 L MCV MCH MCHC RDW 15.4 H Plt Count Lymph % (Auto) [place] % (Auto) Lymph # (Auto) [place] # (Auto) Seg Neutrophils % Seg Neuts % (Manual) Lymphocytes % (Manual) Monocytes % (Manual) Seg Neutrophils # Seg Neutrophils # Man Lymphocytes # (Manual) Monocytes # (Manual) PT INR APTT D-Dimer ABG pH POC ABG pCO2 POC ABG pO2 ABG pO2 ABG HCO3 ABG Base Excess ABG Hemoglobin ABG Oxyhemoglobin ABG Sodium ABG Potassium ABG Chloride ABG Glucose Oxyhemoglobin Carboxyhemoglobin Sodium Potassium Chloride Carbon Dioxide BUN Creatinine Glucose POC Glucose 107 H 108 H Calcium Phosphorus Ferritin AST Lactate Dehydrogenase C-Reactive Protein Total Protein Albumin Lipase Vitamin B12 Arterial Blood Glucose Valproic Acid Coronavirus (PCR) 05/03/21 05/03/21 05/03/21 09:20 11:01 17:33 WBC RBC Hgb Hct MCV MCH MCHC RDW Plt Count Lymph % (Auto) [place] % (Auto) Lymph # (Auto) [place] # (Auto) Seg Neutrophils % Seg Neuts % (Manual) Lymphocytes % (Manual) Monocytes % (Manual) Seg Neutrophils # Seg Neutrophils # Man Lymphocytes # (Manual) Monocytes # (Manual) PT INR APTT D-Dimer ABG pH POC ABG pCO2 POC ABG pO2 ABG pO2 ABG HCO3 ABG Base Excess ABG Hemoglobin ABG Oxyhemoglobin ABG Sodium ABG Potassium ABG Chloride ABG Glucose Oxyhemoglobin Carboxyhemoglobin Sodium 149 H Potassium 3.5 L Chloride 110.0 H Carbon Dioxide BUN Creatinine 0.3 L Glucose 113 H POC Glucose 146 H 118 H Calcium 8.0 L Phosphorus Ferritin AST Lactate Dehydrogenase C-Reactive Protein Total Protein Albumin Lipase Vitamin B12 Arterial Blood Glucose Valproic Acid Coronavirus (PCR) 05/04/21 05/04/21 05/04/21 05:51 13:28 13:28 WBC RBC Hgb Hct MCV MCH MCHC RDW Plt Count Lymph % (Auto) [place] % (Auto) Lymph # (Auto) [place] # (Auto) Seg Neutrophils % Seg Neuts % (Manual) Lymphocytes % (Manual) Monocytes % (Manual) Seg Neutrophils # Seg Neutrophils # Man Lymphocytes # (Manual) Monocytes # (Manual) PT INR APTT D-Dimer ABG pH POC ABG pCO2 POC ABG pO2 ABG pO2 ABG HCO3 ABG Base Excess ABG Hemoglobin ABG Oxyhemoglobin ABG Sodium ABG Potassium ABG Chloride ABG Glucose Oxyhemoglobin Carboxyhemoglobin Sodium Potassium Chloride Carbon Dioxide BUN Creatinine Glucose POC Glucose 143 H Calcium Phosphorus Ferritin AST Lactate Dehydrogenase C-Reactive Protein 15.40 H Total Protein Albumin Lipase Vitamin B12 Arterial Blood Glucose Valproic Acid 10.9 L Coronavirus (PCR) 05/04/21 05/04/21 05/05/21 17:30 23:53 11:23 WBC RBC Hgb Hct MCV MCH MCHC RDW Plt Count Lymph % (Auto) [place] % (Auto) Lymph # (Auto) [place] # (Auto) Seg Neutrophils % Seg Neuts % (Manual) Lymphocytes % (Manual) Monocytes % (Manual) Seg Neutrophils # Seg Neutrophils # Man Lymphocytes # (Manual) Monocytes # (Manual) PT INR APTT D-Dimer ABG pH POC ABG pCO2 POC ABG pO2 ABG pO2 ABG HCO3 ABG Base Excess ABG Hemoglobin ABG Oxyhemoglobin ABG Sodium ABG Potassium ABG Chloride ABG Glucose Oxyhemoglobin Carboxyhemoglobin Sodium Potassium Chloride Carbon Dioxide BUN Creatinine Glucose POC Glucose 110 H 128 H 121 H Calcium Phosphorus Ferritin AST Lactate Dehydrogenase C-Reactive Protein Total Protein Albumin Lipase Vitamin B12 Arterial Blood Glucose Valproic Acid Coronavirus (PCR) 05/05/21 05/05/21 05/06/21 16:26 21:24 07:02 WBC 11.7 H RBC Hgb Hct MCV 99 H MCH 33 H MCHC RDW 15.5 H Plt Count Lymph % (Auto) [place] % (Auto) Lymph # (Auto) [place] # (Auto) Seg Neutrophils % Seg Neuts % (Manual) 82.0 H Lymphocytes % (Manual) 4.0 L Monocytes % (Manual) Seg Neutrophils # Seg Neutrophils # Man 9.6 H Lymphocytes # (Manual) 0.5 L Monocytes # (Manual) PT INR APTT D-Dimer ABG pH POC ABG pCO2 POC ABG pO2 ABG pO2 ABG HCO3 ABG Base Excess ABG Hemoglobin ABG Oxyhemoglobin ABG Sodium ABG Potassium ABG Chloride ABG Glucose Oxyhemoglobin Carboxyhemoglobin Sodium Potassium Chloride Carbon Dioxide BUN Creatinine Glucose POC Glucose 113 H 130 H Calcium Phosphorus Ferritin AST Lactate Dehydrogenase C-Reactive Protein Total Protein Albumin Lipase Vitamin B12 Arterial Blood Glucose Valproic Acid Coronavirus (PCR) 05/07/21 05/07/21 05/07/21 05:00 07:28 21:34 WBC RBC Hgb Hct MCV MCH MCHC RDW Plt Count Lymph % (Auto) [place] % (Auto) Lymph # (Auto) [place] # (Auto) Seg Neutrophils % Seg Neuts % (Manual) Lymphocytes % (Manual) Monocytes % (Manual) Seg Neutrophils # Seg Neutrophils # Man Lymphocytes # (Manual) Monocytes # (Manual) PT 16.0 H INR 1.16 H APTT 43.8 H D-Dimer ABG pH POC ABG pCO2 POC ABG pO2 ABG pO2 ABG HCO3 ABG Base Excess ABG Hemoglobin ABG Oxyhemoglobin ABG Sodium ABG Potassium ABG Chloride ABG Glucose Oxyhemoglobin Carboxyhemoglobin Sodium Potassium Chloride Carbon Dioxide BUN Creatinine Glucose POC Glucose 112 H 123 H Calcium Phosphorus Ferritin AST Lactate Dehydrogenase C-Reactive Protein Total Protein Albumin Lipase Vitamin B12 Arterial Blood Glucose Valproic Acid Coronavirus (PCR) 05/08/21 05/08/21 05/08/21 08:11 12:04 16:37 WBC RBC Hgb Hct MCV MCH MCHC RDW Plt Count Lymph % (Auto) [place] % (Auto) Lymph # (Auto) [place] # (Auto) Seg Neutrophils % Seg Neuts % (Manual) Lymphocytes % (Manual) Monocytes % (Manual) Seg Neutrophils # Seg Neutrophils # Man Lymphocytes # (Manual) Monocytes # (Manual) PT INR APTT D-Dimer ABG pH POC ABG pCO2 POC ABG pO2 ABG pO2 ABG HCO3 ABG Base Excess ABG Hemoglobin ABG Oxyhemoglobin ABG Sodium ABG Potassium ABG Chloride ABG Glucose Oxyhemoglobin Carboxyhemoglobin Sodium Potassium Chloride Carbon Dioxide BUN Creatinine Glucose POC Glucose 158 H 117 H 118 H Calcium Phosphorus Ferritin AST Lactate Dehydrogenase C-Reactive Protein Total Protein Albumin Lipase Vitamin B12 Arterial Blood Glucose Valproic Acid Coronavirus (PCR) 05/09/21 05/09/21 05/09/21 04:56 12:04 17:14 WBC RBC Hgb Hct MCV MCH MCHC RDW Plt Count Lymph % (Auto) [place] % (Auto) Lymph # (Auto) [place] # (Auto) Seg Neutrophils % Seg Neuts % (Manual) Lymphocytes % (Manual) Monocytes % (Manual) Seg Neutrophils # Seg Neutrophils # Man Lymphocytes # (Manual) Monocytes # (Manual) PT INR APTT D-Dimer ABG pH POC ABG pCO2 POC ABG pO2 ABG pO2 ABG HCO3 ABG Base Excess ABG Hemoglobin ABG Oxyhemoglobin ABG Sodium ABG Potassium ABG Chloride ABG Glucose Oxyhemoglobin Carboxyhemoglobin Sodium Potassium Chloride Carbon Dioxide BUN Creatinine Glucose POC Glucose 113 H 107 H 163 H Calcium Phosphorus Ferritin AST Lactate Dehydrogenase C-Reactive Protein Total Protein Albumin Lipase Vitamin B12 Arterial Blood Glucose Valproic Acid Coronavirus (PCR) 05/09/21 05/09/21 05/10/21 21:02 Unknown 12:00 WBC RBC Hgb Hct MCV MCH MCHC RDW Plt Count Lymph % (Auto) [place] % (Auto) Lymph # (Auto) [place] # (Auto) Seg Neutrophils % Seg Neuts % (Manual) Lymphocytes % (Manual) Monocytes % (Manual) Seg Neutrophils # Seg Neutrophils # Man Lymphocytes # (Manual) Monocytes # (Manual) PT INR APTT D-Dimer ABG pH POC ABG pCO2 POC ABG pO2 ABG pO2 ABG HCO3 ABG Base Excess ABG Hemoglobin ABG Oxyhemoglobin ABG Sodium ABG Potassium ABG Chloride ABG Glucose Oxyhemoglobin Carboxyhemoglobin Sodium Potassium Chloride Carbon Dioxide BUN Creatinine Glucose POC Glucose 139 H 132 H Calcium Phosphorus Ferritin AST Lactate Dehydrogenase C-Reactive Protein Total Protein Albumin Lipase Vitamin B12 Arterial Blood Glucose Valproic Acid Coronavirus (PCR) Positive A 05/10/21 05/10/21 05/11/21 17:36 20:37 01:46 WBC RBC Hgb Hct MCV MCH MCHC RDW Plt Count Lymph % (Auto) [place] % (Auto) Lymph # (Auto) [place] # (Auto) Seg Neutrophils % Seg Neuts % (Manual) Lymphocytes % (Manual) Monocytes % (Manual) Seg Neutrophils # Seg Neutrophils # Man Lymphocytes # (Manual) Monocytes # (Manual) PT INR APTT D-Dimer ABG pH POC ABG pCO2 POC ABG pO2 ABG pO2 ABG HCO3 ABG Base Excess ABG Hemoglobin ABG Oxyhemoglobin ABG Sodium ABG Potassium ABG Chloride ABG Glucose Oxyhemoglobin Carboxyhemoglobin Sodium Potassium Chloride Carbon Dioxide BUN Creatinine Glucose POC Glucose 120 H 125 H 118 H Calcium Phosphorus Ferritin AST Lactate Dehydrogenase C-Reactive Protein Total Protein Albumin Lipase Vitamin B12 Arterial Blood Glucose Valproic Acid Coronavirus (PCR) 05/11/21 05/11/21 05/11/21 02:30 02:30 03:20 WBC 12.3 H RBC 3.22 L Hgb 9.6 L Hct 33.3 L MCV 103 H MCH MCHC 29 L RDW 16.6 H Plt Count Lymph % (Auto) 4.9 L [place] % (Auto) 10.6 H Lymph # (Auto) 0.6 L [place] # (Auto) 1.3 H Seg Neutrophils % 84.0 H Seg Neuts % (Manual) Lymphocytes % (Manual) Monocytes % (Manual) Seg Neutrophils # 10.4 H Seg Neutrophils # Man Lymphocytes # (Manual) Monocytes # (Manual) PT INR APTT D-Dimer ABG pH 7.083 L POC ABG pCO2 129.5 H POC ABG pO2 139.1 H ABG pO2 ABG HCO3 ABG Base Excess ABG Hemoglobin 10.6 L ABG Oxyhemoglobin 98.4 H ABG Sodium 154.5 H ABG Potassium 5.4 H ABG Chloride 114.0 H ABG Glucose 128 H Oxyhemoglobin Carboxyhemoglobin 0.3 L Sodium 159 H Potassium 6.6 H* Chloride 116.6 H Carbon Dioxide 35 H BUN 41 H Creatinine Glucose 139 H POC Glucose Calcium 8.2 L Phosphorus Ferritin AST Lactate Dehydrogenase C-Reactive Protein Total Protein Albumin Lipase Vitamin B12 Arterial Blood Glucose 128 H Valproic Acid Coronavirus (PCR) 05/11/21 05/11/21 05/11/21 05:45 10:30 11:30 WBC RBC Hgb Hct MCV MCH MCHC RDW Plt Count Lymph % (Auto) [place] % (Auto) Lymph # (Auto) [place] # (Auto) Seg Neutrophils % Seg Neuts % (Manual) Lymphocytes % (Manual) Monocytes % (Manual) Seg Neutrophils # Seg Neutrophils # Man Lymphocytes # (Manual) Monocytes # (Manual) PT INR APTT D-Dimer ABG pH POC ABG pCO2 POC ABG pO2 ABG pO2 ABG HCO3 ABG Base Excess ABG Hemoglobin ABG Oxyhemoglobin ABG Sodium ABG Potassium ABG Chloride ABG Glucose Oxyhemoglobin Carboxyhemoglobin Sodium 161 H* Potassium Chloride 117.5 H Carbon Dioxide 37 H BUN 40 H Creatinine 0.7 L Glucose 155 H POC Glucose 112 H 141 H Calcium Phosphorus 2.10 L Ferritin AST Lactate Dehydrogenase C-Reactive Protein Total Protein Albumin Lipase Vitamin B12 Arterial Blood Glucose Valproic Acid Coronavirus (PCR) 05/11/21 05/11/21 05/11/21 15:59 16:40 23:21 WBC RBC Hgb Hct MCV MCH MCHC RDW Plt Count Lymph % (Auto) [place] % (Auto) Lymph # (Auto) [place] # (Auto) Seg Neutrophils % Seg Neuts % (Manual) Lymphocytes % (Manual) Monocytes % (Manual) Seg Neutrophils # Seg Neutrophils # Man Lymphocytes # (Manual) Monocytes # (Manual) PT INR APTT D-Dimer ABG pH POC ABG pCO2 POC ABG pO2 ABG pO2 ABG HCO3 ABG Base Excess ABG Hemoglobin ABG Oxyhemoglobin ABG Sodium ABG Potassium ABG Chloride ABG Glucose Oxyhemoglobin Carboxyhemoglobin Sodium 159 H Potassium Chloride 115.4 H Carbon Dioxide 35 H BUN 44 H Creatinine Glucose 177 H POC Glucose 151 H 184 H Calcium Phosphorus Ferritin AST Lactate Dehydrogenase C-Reactive Protein Total Protein Albumin Lipase Vitamin B12 Arterial Blood Glucose Valproic Acid Coronavirus (PCR) 05/12/21 05/12/21 05/12/21 05:15 05:27 05:56 WBC 11.6 H RBC 3.13 L Hgb 9.4 L Hct 30.9 L MCV 99 H MCH MCHC 30 L RDW 16.0 H Plt Count Lymph % (Auto) [place] % (Auto) Lymph # (Auto) [place] # (Auto) Seg Neutrophils % Seg Neuts % (Manual) Lymphocytes % (Manual) Monocytes % (Manual) Seg Neutrophils # Seg Neutrophils # Man Lymphocytes # (Manual) Monocytes # (Manual) PT INR APTT D-Dimer ABG pH POC ABG pCO2 POC ABG pO2 ABG pO2 107.6 H ABG HCO3 36.8 H ABG Base Excess 9.3 H ABG Hemoglobin 11.2 L ABG Oxyhemoglobin ABG Sodium ABG Potassium ABG Chloride ABG Glucose Oxyhemoglobin Carboxyhemoglobin Sodium Potassium Chloride Carbon Dioxide BUN Creatinine Glucose POC Glucose 163 H Calcium Phosphorus Ferritin AST Lactate Dehydrogenase C-Reactive Protein Total Protein Albumin Lipase Vitamin B12 Arterial Blood Glucose Valproic Acid Coronavirus (PCR) 05/12/21 05/12/21 05/12/21 05:56 11:57 18:07 WBC RBC Hgb Hct MCV MCH MCHC RDW Plt Count Lymph % (Auto) [place] % (Auto) Lymph # (Auto) [place] # (Auto) Seg Neutrophils % Seg Neuts % (Manual) Lymphocytes % (Manual) Monocytes % (Manual) Seg Neutrophils # Seg Neutrophils # Man Lymphocytes # (Manual) Monocytes # (Manual) PT INR APTT D-Dimer ABG pH POC ABG pCO2 POC ABG pO2 ABG pO2 ABG HCO3 ABG Base Excess ABG Hemoglobin ABG Oxyhemoglobin ABG Sodium ABG Potassium ABG Chloride ABG Glucose Oxyhemoglobin Carboxyhemoglobin Sodium 154 H Potassium Chloride 111.4 H Carbon Dioxide 34 H BUN 41 H Creatinine 0.5 L Glucose 185 H POC Glucose 137 H 133 H Calcium Phosphorus 2.40 L Ferritin AST Lactate Dehydrogenase C-Reactive Protein Total Protein Albumin Lipase Vitamin B12 Arterial Blood Glucose Valproic Acid Coronavirus (PCR) 05/13/21 05/13/21 05/13/21 04:37 05:53 05:53 WBC 16.4 H RBC 3.12 L Hgb 9.3 L Hct 29.5 L MCV 95 H MCH MCHC RDW Plt Count 126 L Lymph % (Auto) [place] % (Auto) Lymph # (Auto) [place] # (Auto) Seg Neutrophils % Seg Neuts % (Manual) Lymphocytes % (Manual) Monocytes % (Manual) Seg Neutrophils # Seg Neutrophils # Man Lymphocytes # (Manual) Monocytes # (Manual) PT INR APTT D-Dimer ABG pH 7.490 H POC ABG pCO2 POC ABG pO2 ABG pO2 70.2 L ABG HCO3 36.8 H ABG Base Excess 12.0 H ABG Hemoglobin 9.9 L ABG Oxyhemoglobin ABG Sodium ABG Potassium ABG Chloride ABG Glucose Oxyhemoglobin 94.7 L Carboxyhemoglobin Sodium 151 H Potassium Chloride Carbon Dioxide 33 H BUN 26 H Creatinine 0.3 L Glucose POC Glucose Calcium 8.1 L Phosphorus Ferritin AST Lactate Dehydrogenase C-Reactive Protein Total Protein Albumin Lipase Vitamin B12 Arterial Blood Glucose Valproic Acid Coronavirus (PCR) 05/13/21 05/14/21 05/14/21 17:01 00:20 04:02 WBC 13.0 H RBC 3.12 L Hgb 9.3 L Hct 29.4 L MCV MCH MCHC RDW Plt Count 130 L Lymph % (Auto) [place] % (Auto) Lymph # (Auto) [place] # (Auto) Seg Neutrophils % Seg Neuts % (Manual) Lymphocytes % (Manual) Monocytes % (Manual) Seg Neutrophils # Seg Neutrophils # Man Lymphocytes # (Manual) Monocytes # (Manual) PT INR APTT D-Dimer ABG pH POC ABG pCO2 POC ABG pO2 ABG pO2 ABG HCO3 ABG Base Excess ABG Hemoglobin ABG Oxyhemoglobin ABG Sodium ABG Potassium ABG Chloride ABG Glucose Oxyhemoglobin Carboxyhemoglobin Sodium Potassium Chloride Carbon Dioxide BUN Creatinine Glucose POC Glucose 120 H 134 H Calcium Phosphorus Ferritin AST Lactate Dehydrogenase C-Reactive Protein Total Protein Albumin Lipase Vitamin B12 Arterial Blood Glucose Valproic Acid Coronavirus (PCR) 05/14/21 05/14/21 05/14/21 04:02 05:07 11:35 WBC RBC Hgb Hct MCV MCH MCHC RDW Plt Count Lymph % (Auto) [place] % (Auto) Lymph # (Auto) [place] # (Auto) Seg Neutrophils % Seg Neuts % (Manual) Lymphocytes % (Manual) Monocytes % (Manual) Seg Neutrophils # Seg Neutrophils # Man Lymphocytes # (Manual) Monocytes # (Manual) PT INR APTT D-Dimer ABG pH POC ABG pCO2 POC ABG pO2 ABG pO2 ABG HCO3 ABG Base Excess ABG Hemoglobin ABG Oxyhemoglobin ABG Sodium ABG Potassium ABG Chloride ABG Glucose Oxyhemoglobin Carboxyhemoglobin Sodium 146 H Potassium 3.1 L D Chloride Carbon Dioxide 33 H BUN Creatinine 0.2 L Glucose 132 H POC Glucose 132 H 106 H Calcium Phosphorus 2.30 L Ferritin AST Lactate Dehydrogenase C-Reactive Protein Total Protein Albumin Lipase Vitamin B12 Arterial Blood Glucose Valproic Acid Coronavirus (PCR) 05/14/21 05/14/21 05/15/21 17:58 23:09 04:05 WBC RBC Hgb Hct MCV MCH MCHC RDW Plt Count Lymph % (Auto) [place] % (Auto) Lymph # (Auto) [place] # (Auto) Seg Neutrophils % Seg Neuts % (Manual) Lymphocytes % (Manual) Monocytes % (Manual) Seg Neutrophils # Seg Neutrophils # Man Lymphocytes # (Manual) Monocytes # (Manual) PT INR APTT D-Dimer ABG pH 7.500 H POC ABG pCO2 POC ABG pO2 ABG pO2 66.1 L ABG HCO3 35.1 H ABG Base Excess 10.8 H ABG Hemoglobin 9.1 L ABG Oxyhemoglobin ABG Sodium ABG Potassium ABG Chloride ABG Glucose Oxyhemoglobin 93.4 L Carboxyhemoglobin Sodium Potassium Chloride Carbon Dioxide BUN Creatinine Glucose POC Glucose 134 H 133 H Calcium Phosphorus Ferritin AST Lactate Dehydrogenase C-Reactive Protein Total Protein Albumin Lipase Vitamin B12 Arterial Blood Glucose Valproic Acid Coronavirus (PCR) 05/15/21 05/15/21 05/15/21 05:00 05:00 11:37 WBC 19.4 H RBC 3.07 L Hgb 9.3 L Hct 28.7 L MCV MCH MCHC RDW Plt Count 104 L Lymph % (Auto) [place] % (Auto) Lymph # (Auto) [place] # (Auto) Seg Neutrophils % Seg Neuts % (Manual) Lymphocytes % (Manual) Monocytes % (Manual) Seg Neutrophils # Seg Neutrophils # Man Lymphocytes # (Manual) Monocytes # (Manual) PT INR APTT D-Dimer ABG pH POC ABG pCO2 POC ABG pO2 ABG pO2 ABG HCO3 ABG Base Excess ABG Hemoglobin ABG Oxyhemoglobin ABG Sodium ABG Potassium ABG Chloride ABG Glucose Oxyhemoglobin Carboxyhemoglobin Sodium 147 H Potassium Chloride Carbon Dioxide 33 H BUN Creatinine 0.2 L Glucose 131 H POC Glucose 130 H Calcium Phosphorus Ferritin AST Lactate Dehydrogenase C-Reactive Protein Total Protein Albumin Lipase Vitamin B12 Arterial Blood Glucose Valproic Acid Coronavirus (PCR) 05/15/21 05/15/21 05/16/21 16:45 23:03 03:09 WBC RBC Hgb Hct MCV MCH MCHC RDW Plt Count Lymph % (Auto) [place] % (Auto) Lymph # (Auto) [place] # (Auto) Seg Neutrophils % Seg Neuts % (Manual) Lymphocytes % (Manual) Monocytes % (Manual) Seg Neutrophils # Seg Neutrophils # Man Lymphocytes # (Manual) Monocytes # (Manual) PT INR APTT D-Dimer ABG pH 7.514 H POC ABG pCO2 POC ABG pO2 ABG pO2 66.8 L ABG HCO3 33.8 H ABG Base Excess 9.9 H ABG Hemoglobin 8.9 L ABG Oxyhemoglobin ABG Sodium ABG Potassium ABG Chloride ABG Glucose Oxyhemoglobin 94.2 L Carboxyhemoglobin Sodium Potassium Chloride Carbon Dioxide BUN Creatinine Glucose POC Glucose 128 H 116 H Calcium Phosphorus Ferritin AST Lactate Dehydrogenase C-Reactive Protein Total Protein Albumin Lipase Vitamin B12 Arterial Blood Glucose Valproic Acid Coronavirus (PCR) 05/16/21 05/16/21 05/16/21 04:00 04:00 05:11 WBC 20.8 H RBC 2.91 L Hgb 8.9 L Hct 27.5 L MCV MCH MCHC RDW Plt Count 108 L Lymph % (Auto) [place] % (Auto) Lymph # (Auto) [place] # (Auto) Seg Neutrophils % Seg Neuts % (Manual) Lymphocytes % (Manual) Monocytes % (Manual) Seg Neutrophils # Seg Neutrophils # Man Lymphocytes # (Manual) Monocytes # (Manual) PT INR APTT D-Dimer ABG pH POC ABG pCO2 POC ABG pO2 ABG pO2 ABG HCO3 ABG Base Excess ABG Hemoglobin ABG Oxyhemoglobin ABG Sodium ABG Potassium ABG Chloride ABG Glucose Oxyhemoglobin Carboxyhemoglobin Sodium 148 H Potassium 3.1 L Chloride 107.1 H Carbon Dioxide 32 H BUN Creatinine 0.2 L Glucose 122 H POC Glucose 109 H Calcium 7.8 L Phosphorus Ferritin AST Lactate Dehydrogenase C-Reactive Protein Total Protein Albumin Lipase Vitamin B12 Arterial Blood Glucose Valproic Acid Coronavirus (PCR) 05/16/21 05:12 WBC RBC Hgb Hct MCV MCH MCHC RDW Plt Count Lymph % (Auto) [place] % (Auto) Lymph # (Auto) [place] # (Auto) Seg Neutrophils % Seg Neuts % (Manual) Lymphocytes % (Manual) Monocytes % (Manual) Seg Neutrophils # Seg Neutrophils # Man Lymphocytes # (Manual) Monocytes # (Manual) PT INR APTT D-Dimer ABG pH POC ABG pCO2 POC ABG pO2 ABG pO2 ABG HCO3 ABG Base Excess ABG Hemoglobin ABG Oxyhemoglobin ABG Sodium ABG Potassium ABG Chloride ABG Glucose Oxyhemoglobin Carboxyhemoglobin Sodium Potassium Chloride Carbon Dioxide BUN Creatinine Glucose POC Glucose 110 H Calcium Phosphorus Ferritin AST Lactate Dehydrogenase C-Reactive Protein Total Protein Albumin Lipase Vitamin B12 Arterial Blood Glucose Valproic Acid Coronavirus (PCR) Chest x-ray: image reviewed (Trach in good position bilateral patchy infiltrate present)
[2021-05-16 17:05] VITALS: BP 92/60
--- NOTE | 2021-05-16 17:51 | Progress Note ---
Assessment and Plan Status post tracheostomy and PEG tube. Both sides are functional. We will continue to follow with you. Anticipate transfer to [facility]. Subjective Date of service: 05/16/21 Narrative: Patient is status post tracheostomy and PEG tube placement yesterday. The trach site dressing is dry and clean. The PEG tube is functional. Objective Vital Signs - 12hr 05/16/21 05/16/21 05/16/21 06:12 07:20 08:00 Temperature 98.4 F Pulse Rate 109 H Pulse Rate [ 109 H From Monitor] Respiratory 27 H Rate Blood Pressure 82/56 O2 Sat by Pulse 92 Oximetry O2 Sat by Pulse Oximetry [ Assessment] 05/16/21 05/16/21 05/16/21 08:30 10:25 11:19 Temperature 97.8 F Pulse Rate 96 H Pulse Rate [ From Monitor] Respiratory Rate Blood Pressure 86/56 O2 Sat by Pulse 96 Oximetry O2 Sat by Pulse 96 Oximetry [ Assessment] 05/16/21 05/16/21 05/16/21 12:00 16:00 16:20 Temperature 97.8 F Pulse Rate 110 H 99 H 98 H Pulse Rate [ 106 H 99 H From Monitor] Respiratory 26 H 27 H Rate Blood Pressure 93/60 92/60 O2 Sat by Pulse 95 94 99 Oximetry O2 Sat by Pulse Oximetry [ Assessment] - Labs 05/16/21 04:00 05/16/21 04:00 Diabetes panel 05/16/21 Range/Units 04:00 Sodium 148 H (137-145) mmol/L Potassium 3.1 L (3.6-5.0) mmol/L Chloride 107.1 H (98-107) mmol/L Carbon Dioxide 32 H (22-30) mmol/L BUN 17 (9-20) mg/dL Creatinine 0.2 L (0.8-1.3) mg/dL Glucose 122 H (75-100) mg/dL Calcium 7.8 L (8.4-10.2) mg/dL Calcium panel 05/16/21 Range/Units 04:00 Calcium 7.8 L (8.4-10.2) mg/dL Pituitary panel 05/16/21 Range/Units 04:00 Sodium 148 H (137-145) mmol/L Potassium 3.1 L (3.6-5.0) mmol/L Chloride 107.1 H (98-107) mmol/L Carbon Dioxide 32 H (22-30) mmol/L BUN 17 (9-20) mg/dL Creatinine 0.2 L (0.8-1.3) mg/dL Glucose 122 H (75-100) mg/dL Calcium 7.8 L (8.4-10.2) mg/dL Adrenal panel 05/16/21 Range/Units 04:00 Sodium 148 H (137-145) mmol/L Potassium 3.1 L (3.6-5.0) mmol/L Chloride 107.1 H (98-107) mmol/L Carbon Dioxide 32 H (22-30) mmol/L BUN 17 (9-20) mg/dL Creatinine 0.2 L (0.8-1.3) mg/dL Glucose 122 H (75-100) mg/dL Calcium 7.8 L (8.4-10.2) mg/dL
--- NOTE | 2021-05-17 20:12 | Electrocardiograph Report ---
[facility] Test Date: 2021-05-11 Test Time: 02:37:13 Pat Name: CHERRY LEDEZMA Department: Room: A253 1 Gender: M [employer] Work[employer]: [id number] : 1955 Requested By: SHREE BUI Order Number: [id number] Reading MD: Declan Peoples Measurements Intervals [place] Rate: 105 P: 62 [place]: 164 QRS: 63 QRSD: 120 T: 85 QT: 360 QTc: 478 Interpretive Statements Sinus tachycardia Probable left ventricular hypertrophy Nonspecific T abnrm, anterolateral leads PRWP NSST'S Compared to ECG 05/02/2021 12:48:25 No significant changes Electronically Signed On 05-17-2021 20:11:24 EST by Declan Peoples
--- NOTE | 2021-05-17 20:37 | Electrocardiograph Report ---
[facility] Test Date: 2021-05-11 Test Time: 11:16:18 Pat Name: CHERRY LEDEZMA Department: Room: A253 1 Gender: M [employer]: ZENIA : 1955 Requested By: CARMINE DE GUZMAN Order Number: [id number] Reading MD: Declan Peoples Measurements Intervals [place] Rate: 118 P: 269 [place]: 119 QRS: 41 QRSD: 86 T: 6 QT: 306 QTc: 429 Interpretive Statements Suspect atrial flutter. 2:1 AVB Low voltage, extremity leads Nonspecific T abnormalities, anterior leads Compared to ECG 05/11/2021 02:37:13 Low QRS voltage now present T-wave abnormality now present Sinus tachycardia no longer present Electronically Signed On 05-17-2021 20:36:47 EST by Declan Peoples
== END 2021-05-16 18:55 | DRG 4 ==
LOC: ED 15:15 → 3A 19:00 → CC1 05-11 01:59
PROVIDERS: ADMIT Internal Medicine; ATTEND Internal Medicine
PROC: XW033E5 Introduction of Remdesivir Anti-infective into Peripheral Vein, Percutaneous Approach, New Technology Group 5 (ICD-10-PCS; 2021-04-25)
PROC: 0DH63UZ Insertion of Feeding Device into Stomach, Percutaneous Approach (ICD-10-PCS; 2021-05-07)
PROC: 5A1955Z Respiratory Ventilation, Greater than 96 Consecutive Hours (ICD-10-PCS; 2021-05-11)
PROC: 0BH17EZ Insertion of Endotracheal Airway into Trachea, Via Natural or Artificial Opening (ICD-10-PCS; 2021-05-11)
PROC: 06HM33Z Insertion of Infusion Device into Right Femoral Vein, Percutaneous Approach (ICD-10-PCS; 2021-05-11)
PROC: B54BZZA Ultrasonography of Right Lower Extremity Veins, Guidance (ICD-10-PCS; 2021-05-11)
PROC: 0BC78ZZ Extirpation of Matter from Left Main Bronchus, Via Natural or Artificial Opening Endoscopic (ICD-10-PCS; 2021-05-11)
PROC: 4A033R1 Measurement of Arterial Saturation, Peripheral, Percutaneous Approach (ICD-10-PCS; 2021-05-13)
PROC: 0B113F4 Bypass Trachea to Cutaneous with Tracheostomy Device, Percutaneous Approach (ICD-10-PCS; principal; 2021-05-15)
PROC: 0BJ08ZZ Inspection of Tracheobronchial Tree, Via Natural or Artificial Opening Endoscopic (ICD-10-PCS; 2021-05-15)
DX: U07.1 COVID-19 (principal); J96.01 Acute respiratory failure with hypoxia; G93.41 Metabolic encephalopathy; J12.82 Pneumonia due to coronavirus disease 2019; E43 Unspecified severe protein-calorie malnutrition; E87.0 Hyperosmolality and hypernatremia; Z68.1 Body mass index [BMI] 19.9 or less, adult; I95.9 Hypotension, unspecified; E87.5 Hyperkalemia; K44.9 Diaphragmatic hernia without obstruction or gangrene; E87.6 Hypokalemia
CPT/HCPCS: 31720; 36415; 36600; 70450; 71045; 71275; 74018; 80048; 80053; 80164; 81001; 82140; 82607; 82728; 82803; 82805; 82962; 83615; 83690; 83735; 84100; 84132; 84145; 84439; 84443; 85007; 85025; 85027; 85379; 85610; 85652; 85730; 86140; 87040; 87070; 87086; 87205; 93005; 93306; 94002; 94003; 94640; 94668; 94760; 99285; G0378; J1815; J2354; J3490; J7030; J7120; J7510; J9280; Q0162; Q9967; J0456; J0610; J0690; J0692; J0696; J1100; J1650; J1720; J1940; J1956; J2060; J2370; J2704; J2710; J3010; J3370; J3480; J7040; J7050; J7070; J8540; U0003